=== PATIENT | female | born 1950 | race Caucasian/White ===

== ENCOUNTER 2019-09-15 17:28 | Emergency (ER) | payer MEDICARE, OTHER, SELFPAY ==
[2019-09-15 17:32] VITALS: BP 135/80; PULSE 85; RESP 24; TEMP 38.4; O2SAT 98; BMI 23.2
--- NOTE | 2019-09-15 17:56 | ED.SOB ---
HPI - SOB/Dyspnea <Petra Cervantes PA-C - Last Filed: 09/15/19 21:06> General Chief Complaint: Shortness of Breath/Dyspnea Stated Complaint: Cough/ fever Time Seen by Provider: 09/15/19 17:48 Source: patient Mode of arrival: Ambulatory Limitations: no limitations History of Present Illness HPI Narrative: This 68-year-old female comes to ED secondary to fever and worsening cough and fatigue. She states symptoms started 3 days ago or so with sinus pressure and drainage, however over the last 2 days she has had intermittent fevers up to 101.8, worsening mostly dry cough, and fatigue. She states that it feels slightly difficult to breathe, she some sense of fatigue other than significant dyspnea. She has had some sore throat and body aches. She states that she has had a little bit of diarrhea as well but this is better today. She states that she has been eating and drinking as she normally would. She has been taking Tylenol for fever. She denies any chest pain, new pain or swelling in her extremities. She does have history of asthma and is using her inhaler as needed which is helpful. She does not know of any recent exposures, no recent travel, she did have flu vaccine this season. She states that she has not had any changes in her medical history since last here aside from pelvic fracture. She has not had any new surgeries. Med/Surg History L2 burst compression fracture March 2016, nonsurgical, treated at [facility], using TLSO brace Chronic ileus Bipolar disorder Osteoporosis Ulcerative colitis, treated with complete colectomy, colostomy and later ileoanal pull-through Hypertension Hyperlipidemia Esophageal reflux Hypothyroidism Hyponatremia Asthma Related Data Home Medications Medication Instructions Recorded Confirmed LIDOCAINE/MENTHOL (LIDOPATCH) 1 ea TP QDAY #0 04/17/16 Lactobacillus acidophilus 1 tab PO BIDP PRN #0 04/17/16 albuterol sulfate [Ventolin HFA] 2 puff INH Q4HP PRN #0 04/17/16 amitriptyline 50 - 100 mg PO HSP PRN #0 04/17/16 baclofen 5 mg PO BID #0 04/17/16 bisacodyl 10 mg DE QDAYP PRN #0 04/17/16 divalproex 1,000 mg PO HS #0 04/17/16 docusate sodium 100 mg PO BIDP PRN #0 04/17/16 lamotrigine [Lamictal] 400 mg PO QDAY #0 16 levothyroxine [Synthroid] 0.075 mg PO QDAY #0 04/17/16 losartan 25 mg PO QDAY #0 04/17/16 magnesium hydroxide [Milk Of 30 ml PO Q DAY PRN PRN #0 04/17/16 Magnesia Concentrated] pantoprazole 40 mg PO QDAY #30 tab 04/17/16 polyethylene glycol 3350 [Miralax] 17 gm PO QDAY #0 gm 04/17/16 baclofen 10 mg PO HS #0 05/25/16 diazepam 5 mg PO QDAY PRN #0 05/25/16 diphenhydramine HCl [Children's 12.5 mg PO Q6 HOURS PRN #0 05/25/16 Allergy (diphenhyd)] ondansetron HCl [Zofran] 4 mg PO Q6HP PRN #0 05/25/16 tramadol 50 - 100 mg PO Q6HP PRN #0 05/25/16 Previous Rx's Medication Instructions Recorded sennosides [senna] 2 tab PO BID #60 04/19/16 acetaminophen [Tylenol Extra 1,000 mg PO Q6HP PRN 30 Days #0 tab 05/25/16 Strength] guaifenesin [Mucinex] 600 mg PO Q12HP PRN #30 tab 05/26/16 meclizine 12.5 mg PO Q6HP PRN #30 tab 05/26/16 meclizine 25 mg PO QID #20 tab 05/26/16 tramadol 1 - 2 tab PO Q6HP PRN #30 tab 05/26/16 Allergies Allergy/AdvReac Type Severity Reaction Status Date / Time butorphanol Allergy Unknown Unverified 09/27/17 12:31 Influenza Virus Vaccines Allergy Unknown ITCHING, Unverified 09/27/17 12:31 BAD REACTION meperidine Allergy Unknown Unverified 09/27/17 12:31 pneumococcal vaccine Allergy Unknown Unverified 09/27/17 12:31 quetiapine Allergy Unknown Unverified 09/27/17 12:31 neuroleptics AdvReac Unknown PT STATES Uncoded 09/27/17 12:31 HAD REALLY BAD REACTION, UNABLE TO STATE WHAT Review of Systems <Petra Cervantes PA-C - Last Filed: 09/15/19 21:06> Review of Systems ROS Unobtainable: All systems reviewed & are unremarkable except as noted in HPI and below Patient History <Petra Cervantes PA-C - Last Filed: 09/15/19 21:06> Social History Smoking Status: Never smoker Smoking Status: Never smoker Exam <Petra Cervantes PA-C - Last Filed: 09/15/19 21:06> Narrative Exam Narrative: GENERAL APPEARANCE: Patient sitting comfortably, in no distress. HEAD: No sinus TTP. EYES: PERRL, EOMI. ORAL CAVITY: Normal oropharynx. THROAT: Clear. NECK/THYROID: Neck supple, full range of motion, no cervical lymphadenopathy. LUNGS: Breath sounds are somewhat coarse throughout without clear wheezes or crackles, dry cough on exam HEART: RRR without murmur, nl S1, S2, no S3 or S4. ABDOMEN: Soft, nontender EXTREMITIES: No edema Initial Vital Signs Initial Vital Signs: Vital Signs Temperature 101.2 F H 09/15/19 17:32 Pulse Rate 85 09/15/19 17:32 Respiratory Rate 24 09/15/19 17:32 Blood Pressure 135/80 09/15/19 17:32 Pulse Oximetry 98 09/15/19 17:32 <Salazar Garcia DO - Last Filed: 09/16/19 02:42> Initial Vital Signs Initial Vital Signs: Vital Signs Temperature 101.2 F H 09/15/19 17:32 Pulse Rate 85 09/15/19 17:32 Respiratory Rate 24 09/15/19 17:32 Blood Pressure 135/80 09/15/19 17:32 Pulse Oximetry 98 09/15/19 17:32 Course <CATERINA Condon Last Filed: 09/15/19 21:06> Course Additional Information: Discussed likelihood that patient has novel alexander virus. She has normal oxygen saturation, states that she is quite fatigued, with cough and fever, not particularly short of breath at this point. She had her inhaler with her and we did do spacer training here. Discussed that she can convalesce at home, continue Tylenol for fever, continue inhaler while test results are pending. Her chest x-ray did not show any acute findings. Discussed that should she have any acutely worsening shortness of breath/activity intolerance, etc., she should return to the ED, and she is agreeable. Advised on home isolation and discussed with her as well. Orders Ordered: ED Orders 09/15/19 17:53 Influenza A & B (PCR) Stat 09/15/19 18:13 XR chest 1V Stat 09/15/19 18:30 Complete Blood Count AUTO DIFF Stat Comprehensive Metabolic Panel Stat Procalcitonin Stat Discontinued Medications Acetaminophen (Tylenol) 650 mg PO NOW ONE Stop: 09/15/19 18:48 Last Admin: 09/15/19 19:30 Dose: 650 mg Documented by: EMIR Vital Signs Vital signs: Vital Signs - 8 hr 09/15/19 20:13 Temperature 101.5 F H Pulse Rate 88 Respiratory Rate 24 Blood Pressure 112/67 Pulse Oximetry 95 <Salazar Garcia DO - Last Filed: 09/16/19 02:42> Orders Ordered: ED Orders 09/15/19 17:53 Influenza A & B (PCR) Stat 09/15/19 18:13 XR chest 1V Stat 09/15/19 18:30 Complete Blood Count AUTO DIFF Stat Comprehensive Metabolic Panel Stat Procalcitonin Stat Discontinued Medications Acetaminophen (Tylenol) 650 mg PO NOW ONE Stop: 09/15/19 18:48 Last Admin: 09/15/19 19:30 Dose: 650 mg Documented by: EMIR Vital Signs Vital signs: Vital Signs - 8 hr 09/15/19 20:13 Temperature 101.5 F H Pulse Rate 88 Respiratory Rate 24 Blood Pressure 112/67 Pulse Oximetry 95 MDM - SOB/Dyspnea <Petra Cervantes PA-C - Last Filed: 09/15/19 21:06> Lab Data Result diagrams: 09/15/19 18:30 09/15/19 18:30 Labs: Lab Results 09/15/19 09/15/19 09/15/19 Range/Units 17:53 18:30 18:30 WBC 3.6 L (4.5-11.0) X10^3/uL RBC 3.68 L (4.0-5.2) X10^6/uL Hgb 12.4 (12.0-16.0) g/dL Hct 36.1 (36-46) % MCV 98.0 (80-100) fL MCH 33.6 (26-34) PG MCHC 34.3 (30-36) % RDW 14.0 (11.6-14.8) % Plt Count 107 L (150-400) X10^3/uL Neut % (Auto) 74.6 (50-75) % Lymph % (Auto) 17.5 L (25-40) % Parke % (Auto) 7.4 (3-14) % Eos % (Auto) 0.0 L (2-4) % Baso % (Auto) 0.5 (0-2) % Neut # (Auto) 2700 (2387-7993) /uL Lymph # (Auto) 600 L (7167-8102) /uL Parke # (Auto) 300 (0-900) /uL Eos # (Auto) 0 (0-450) /uL Baso # (Auto) 0 (0-100) /uL Sodium (137-145) mmol/L Potassium (3.4-5.1) mmol/L Chloride (98-107) mmol/L Carbon Dioxide (22-32) mmol/L BUN (7-17) mg/dL Creatinine (0.52-1.04) mg/dL Estimated GFR (>60) mL/min BUN/Creatinine Ratio (6-22) Glucose (80-110) mg/dL Calcium (8.4-10.2) mg/dL Total Bilirubin (0.2-1.3) mg/dL AST (14-36) IU/L ALT (<35) IU/L Alkaline Phosphatase (38-126) U/L Total Protein (6.3-8.2) g/dL Albumin (3.5-5.0) g/dL Globulin (1.7-4.1) g/dL Albumin/Globulin Ratio (1.0-2.8) Procalcitonin 0.06 (<0.5) ng/mL Influenza A (RT-PCR) Flu a negative (NEGATIVE) Influenza B (RT-PCR) Flu b negative (NEGATIVE) 09/15/19 Range/Units 18:30 WBC (4.5-11.0) X10^3/uL RBC (4.0-5.2) X10^6/uL Hgb (12.0-16.0) g/dL Hct (36-46) % MCV (80-100) fL MCH (26-34) PG MCHC (30-36) % RDW (11.6-14.8) % Plt Count (150-400) X10^3/uL Neut % (Auto) (50-75) % Lymph % (Auto) (25-40) % Parke % (Auto) (3-14) % Eos % (Auto) (2-4) % Baso % (Auto) (0-2) % Neut # (Auto) (2233-6556) /uL Lymph # (Auto) (4951-2683) /uL Parke # (Auto) (0-900) /uL Eos # (Auto) (0-450) /uL Baso # (Auto) (0-100) /uL Sodium 135 L (137-145) mmol/L Potassium 4.5 (3.4-5.1) mmol/L Chloride 105 (98-107) mmol/L Carbon Dioxide 22 (22-32) mmol/L BUN 24 H (7-17) mg/dL Creatinine 0.93 (0.52-1.04) mg/dL Estimated GFR > 60.0 (>60) mL/min BUN/Creatinine Ratio 25.8 H (6-22) Glucose 100 (80-110) mg/dL Calcium 9.3 (8.4-10.2) mg/dL Total Bilirubin 0.3 (0.2-1.3) mg/dL AST 28 (14-36) IU/L ALT 14 (<35) IU/L Alkaline Phosphatase 45 (38-126) U/L Total Protein 6.8 (6.3-8.2) g/dL Albumin 3.8 (3.5-5.0) g/dL Globulin 3.0 (1.7-4.1) g/dL Albumin/Globulin Ratio 1.3 (1.0-2.8) Procalcitonin (<0.5) ng/mL Influenza A (RT-PCR) (NEGATIVE) Influenza B (RT-PCR) (NEGATIVE) <Salazar Garcia DO - Last Filed: 09/16/19 02:42> Lab Data Labs: Lab Results 09/15/19 09/15/19 09/15/19 Range/Units 17:53 18:30 18:30 WBC 3.6 L (4.5-11.0) X10^3/uL RBC 3.68 L (4.0-5.2) X10^6/uL Hgb 12.4 (12.0-16.0) g/dL Hct 36.1 (36-46) % MCV 98.0 (80-100) fL MCH 33.6 (26-34) PG MCHC 34.3 (30-36) % RDW 14.0 (11.6-14.8) % Plt Count 107 L (150-400) X10^3/uL Neut % (Auto) 74.6 (50-75) % Lymph % (Auto) 17.5 L (25-40) % Parke % (Auto) 7.4 (3-14) % Eos % (Auto) 0.0 L (2-4) % Baso % (Auto) 0.5 (0-2) % Neut # (Auto) 2700 (4282-0804) /uL Lymph # (Auto) 600 L (7579-7929) /uL Parke # (Auto) 300 (0-900) /uL Eos # (Auto) 0 (0-450) /uL Baso # (Auto) 0 (0-100) /uL Sodium (137-145) mmol/L Potassium (3.4-5.1) mmol/L Chloride (98-107) mmol/L Carbon Dioxide (22-32) mmol/L BUN (7-17) mg/dL Creatinine (0.52-1.04) mg/dL Estimated GFR (>60) mL/min BUN/Creatinine Ratio (6-22) Glucose (80-110) mg/dL Calcium (8.4-10.2) mg/dL Total Bilirubin (0.2-1.3) mg/dL AST (14-36) IU/L ALT (<35) IU/L Alkaline Phosphatase (38-126) U/L Total Protein (6.3-8.2) g/dL Albumin (3.5-5.0) g/dL Globulin (1.7-4.1) g/dL Albumin/Globulin Ratio (1.0-2.8) Procalcitonin 0.06 (<0.5) ng/mL Influenza A (RT-PCR) Flu a negative (NEGATIVE) Influenza B (RT-PCR) Flu b negative (NEGATIVE) 03/29/20 Range/Units 18:30 WBC (4.5-11.0) X10^3/uL RBC (4.0-5.2) X10^6/uL Hgb (12.0-16.0) g/dL Hct (36-46) % MCV (80-100) fL MCH (26-34) PG MCHC (30-36) % RDW (11.6-14.8) % Plt Count (150-400) X10^3/uL Neut % (Auto) (50-75) % Lymph % (Auto) (25-40) % Parke % (Auto) (3-14) % Eos % (Auto) (2-4) % Baso % (Auto) (0-2) % Neut # (Auto) (3920-8938) /uL Lymph # (Auto) (2155-2438) /uL Parke # (Auto) (0-900) /uL Eos # (Auto) (0-450) /uL Baso # (Auto) (0-100) /uL Sodium 135 L (137-145) mmol/L Potassium 4.5 (3.4-5.1) mmol/L Chloride 105 (98-107) mmol/L Carbon Dioxide 22 (22-32) mmol/L BUN 24 H (7-17) mg/dL Creatinine 0.93 (0.52-1.04) mg/dL Estimated GFR > 60.0 (>60) mL/min BUN/Creatinine Ratio 25.8 H (6-22) Glucose 100 (80-110) mg/dL Calcium 9.3 (8.4-10.2) mg/dL Total Bilirubin 0.3 (0.2-1.3) mg/dL AST 28 (14-36) IU/L ALT 14 (<35) IU/L Alkaline Phosphatase 45 (38-126) U/L Total Protein 6.8 (6.3-8.2) g/dL Albumin 3.8 (3.5-5.0) g/dL Globulin 3.0 (1.7-4.1) g/dL Albumin/Globulin Ratio 1.3 (1.0-2.8) Procalcitonin (<0.5) ng/mL Influenza A (RT-PCR) (NEGATIVE) Influenza B (RT-PCR) (NEGATIVE) Discharge Plan Departure Patient Disposition: Home Clinical Impression: 2019 novel coronavirus disease (COVID-19) Asthma with exacerbation Qualifiers: Asthma severity: unspecified severity Asthma persistence: intermittent Qualified Code(s): J45.21 - Mild intermittent asthma with (acute) exacerbation Discharge Date/Time: 09/15/19 20:14 Instructions: Atypical Pneumonia Activity Restrictions/Additional Instructions: Although we do not have a confirmed test, based on your symptoms and history, I suspect that you have coronavirus, which is also likely exacerbating your asthma. Your chest x-ray looks clear today, and since you are not having significant breathing difficulty at this point, it is okay for you to be at home, however if you are feeling worse or more short of breath at any point and your inhaler isn't working, you should return to the emergency room. Below are instructions for care at home: What to do: * per recommendations from the CDC and the [facility] Department of Health * stay home except to get medical care. Restrict activities outside your home, except for getting medical care. Do not go to work, school, or public areas. Avoid using public transportation, ride sharing, or taxis. * separate yourself from other people in your home. * call ahead before visiting your doctor * Wear a face mask * Cover your coughs and sneezes * Clean your hands often * Avoid sharing household items * Clean all high-touch services every day * Monitor your symptoms and seek prompt medical attention if your illness is worsening, particularly with difficulty in breathing. Discussed continuing home isolation * for individuals with symptoms who are confirmed or suspected cases of COVID-19 and are directed to care for themselves at home, discontinue home isolation under the following conditions: 1. At least 72 hours have passed since recovery, defined as resolution of fever without the use of fever reducing medications, and improvement in respiratory symptoms (cough, shortness of breath) AND, 2. At least 7 days have passed since symptoms 1st appeared Continue Tylenol as needed for fever and aches. Individuals with laboratory confirmed COVID-19 who have not had any symptoms may discontinue home isolation when at least 7 days have passed since the date of their 1st COVID-19 diagnostic test and have had no subsequent illness Please be sure to wear a face mask when others come into the room, i.e. if your comes into the room. If possible, try to use a separate bathroom, and keep . Keep contact brief. Your /caregiver should avoid as much contact as possible, wash hands frequently for 20 seconds and use antibacterial gel, and sanitize any shared surfaces frequently and after the patient touches them. Those who have been in close or prolonged contact with you should stay at home for the next 2 weeks (or until we know that your test is negative) and wear a mask when out and about. We noted coincidentally that your white cells and platelets were on the low side today. Your red blood cell count is normally a little bit low and that was actually higher today than when you were here previously, and you did not have anemia like you have previously. Please be sure to follow-up on this with Dr. Davison as she likely has more recent lab work on you for comparison and can determine whether any lab work needs to be repeated when you are feeling better Prescriptions: No Action pantoprazole 40 MG tablet,delayed release (DR/EC) 40 mg PO QDAY Qty: 30 RF: 0 losartan 25 MG tablet 25 mg PO QDAY Qty: 0 RF: 0 levothyroxine [Synthroid] 75 MCG tablet 0.075 mg PO QDAY Qty: 0 RF: 0 baclofen 10 MG tablet 5 mg PO BID Qty: 0 RF: 0 docusate sodium 100 MG capsule 100 mg PO BIDP PRNQty: 0 RF: 0 polyethylene glycol 3350 [Miralax] 119 GM powder 17 gm PO QDAY Qty: 0 RF: 0 LIDOCAINE/MENTHOL (LIDOPATCH) 1 ea TP QDAY Qty: 0 RF: 0 Lactobacillus acidophilus 1 EACH capsule 1 tab PO BIDP PRNQty: 0 RF: 0 bisacodyl 10 MG suppository 10 mg DE QDAYP PRNQty: 0 RF: 0 albuterol sulfate [Ventolin HFA] 90 MCG/PUFF HFA aerosol inhaler 2 puff INH Q4HP PRNQty: 0 RF: 0 magnesium hydroxide [Milk Of Magnesia Concentrated] 2,400 MG/10 ML suspension 30 ml PO Q DAY PRN PRNQty: 0 RF: 0 amitriptyline 50 MG tablet 50 - 100 mg PO HSP PRNQty: 0 RF: 0 lamotrigine [Lamictal] 200 MG tablet 400 mg PO QDAY Qty: 0 RF: 0 divalproex 500 MG tablet extended release 24 hr 1,000 mg PO HS Qty: 0 RF: 0 sennosides [senna] 8.6 MG tablet 2 tab PO BID Qty: 60 RF: 0 tramadol 50 MG tablet 50 - 100 mg PO Q6HP PRNQty: 0 RF: 0 acetaminophen [Tylenol Extra Strength] 500 MG tablet 1,000 mg PO Q6HP PRN30 Days Qty: 0 RF: 0 diazepam 5 MG tablet 5 mg PO QDAY PRNQty: 0 RF: 0 ondansetron HCl [Zofran] 8 MG tablet 4 mg PO Q6HP PRNQty: 0 RF: 0 diphenhydramine HCl [Children's Allergy (diphenhyd)] 12.5 MG tablet,disintegrating 12.5 mg PO Q6 HOURS PRNQty: 0 RF: 0 baclofen 10 MG tablet 10 mg PO HS Qty: 0 RF: 0 meclizine 25 MG tablet 25 mg PO QID Qty: 20 RF: 0 meclizine 12.5 MG tablet 12.5 mg PO Q6HP PRNQty: 30 RF: 0 tramadol 50 MG tablet 1 - 2 tab PO Q6HP PRNQty: 30 RF: 0 guaifenesin [Mucinex] 600 MG tablet extended release 12hr 600 mg PO Q12HP PRNQty: 30 RF: 0 Referrals: Judy Davison MD [Non-Staff] - <Salazar Garcia DO - Last Filed: 09/16/19 02:42> Cosign ED Attending Cosignature Attestation: I was immediately available in the department for consultation. This documentation has been reviewed and I agree with assessment and plan. Supervised by Salazar Garcia DO
--- NOTE | 2019-09-15 18:13 | DI.RAD.S_ITS ---
PROCEDURE: XR CHEST 1V INDICATIONS: cough, dyspnea, fever TECHNIQUE: One view of the chest was acquired. COMPARISON: [facility], , CHEST 1 VIEW, 05/25/2016, 16:23. FINDINGS: Surgical changes and devices: Clips project in the right base of neck.. Lungs and pleura: Lungs are clear. No pleural effusions or pneumothorax. Mediastinum: Mediastinal contours appear normal. Heart size is normal. Bones and chest wall: Chronic right rib fractures. Chronic right clavicle fracture. IMPRESSION: No acute disease Dictated by: Johnson Prather M.D. on 09/15/2019 at 18:56 Approved by: Johnson Prather M.D. on 09/15/2019 at 18:57
[2019-09-15 18:37] LABS: Influenza A - CEPHEID Flu A NEGATIVE (NEGATIVE); Influenza B - CEPHEID Flu B NEGATIVE (NEGATIVE)
[2019-09-15 18:41] LABS: Add Manual Diff / Slide Review NO; Basophils Absolute Auto 0 /uL (0-100); Basophils Percent Auto 0.5 % (0-2); Eosinophils Absolute Auto 0 /uL (0-450); Hematocrit 36.1 % (36-46); Hemoglobin 12.4 g/dL (12.0-16.0); Lymphocytes Absolute Auto 600 /uL (1100-4500); Lymphocytes Percent Auto 17.5 % (25-40); Mean Corpuscular HGB Conc 34.3 % (30-36); Mean Corpuscular Hemoglobin 33.6 PG (26-34); Monocytes Absolute Auto 300 /uL (0-900); Monocytes Percent Auto 7.4 % (3-14); Neutrophils Absolute Auto 2700 /uL (1500-7000); Neutrophils Percent Auto 74.6 % (50-75); Platelet Count 107 X10^3/uL (150-400); Red Blood Cell Count 3.68 X10^6/uL (4.0-5.2); White Blood Cell Count 3.6 X10^3/uL (4.5-11.0)
[2019-09-15 18:52] LABS: Alanine Aminotransferase 14 IU/L (<35); Albumin 3.8 g/dL (3.5-5.0); Albumin Globulin Ratio 1.3 (1.0-2.8); Alkaline Phosphatase 45 U/L (38-126); Aspartate Aminotransferase 28 IU/L (14-36); BUN Creatinine Ratio 25.8 (6-22); Bilirubin Total 0.3 mg/dL (0.2-1.3); Blood Urea Nitrogen 24 mg/dL (7-17); Calcium 9.3 mg/dL (8.4-10.2); Carbon Dioxide 22 mmol/L (22-32); Chloride 105 mmol/L (98-107); Estimated Glomerular Filt Rate > 60.0 mL/min (>60); Glucose 100 mg/dL (80-110); HEMOLYSIS < 15 (0-50); Potassium 4.5 mmol/L (3.4-5.1); Sodium 135 mmol/L (137-145); Total Protein 6.8 g/dL (6.3-8.2)
[2019-09-15] MEDS: ACETAMINOPHEN 325 MG TABLET 650 MG PO (19:30)
[2019-09-15 19:44] LABS: Procalcitonin 0.06 ng/mL (<0.5)
[2019-09-15 20:13] VITALS: BP 112/67; PULSE 88; RESP 24; TEMP 38.6; O2SAT 95
[2019-09-18 08:17] LABS: COVID19 Sendout Detected (Not Detected)
== END 2019-09-15 20:14 | disposition home or self-care (01) ==
PROVIDERS: Emergency Provider Internal Medicine; Family Provider Internal Medicine; PCP Internal Medicine
DX: R05 Cough (principal); R50.9 Fever, unspecified; R06.02 Shortness of breath; J45.21 Mild intermittent asthma with (acute) exacerbation
CPT/HCPCS: 36415; 71045; 80053; 84145; 85025; 87502; 87635; 99283

== ENCOUNTER 2021-05-28 00:01 | Inpatient (IN) | payer MEDICARE, OTHER, SELFPAY ==
[2021-05-28] VITALS (9 sets, daily range): BP systolic 121–151; BP diastolic 58–80; PULSE 76–91; RESP 18–20; TEMP 37.1–37.5; O2SAT 96–100; BMI 24.1
--- NOTE | 2021-05-28 00:08 | ED.GENADULT ---
HPI - General Adult General Chief complaint: Abdominal Pain Stated complaint: Abd cramping Time Seen by Provider: 05/28/21 00:04 Source: patient Mode of arrival: EMS Limitations: no limitations History of Present Illness HPI narrative: Patient is a 70-year-old female who arrives for evaluation of a couple hours of abdominal cramping/pain. She is having nausea but no vomiting. She is still passing flatus. Had a very small bowel movement earlier today. She has had extensive abdominal history to include a bowel resection secondary to ulcerative colitis. She does have a Ellie fundoplication as well. Less than 1 month ago she had a exploratory laparotomy done at an outside facility for concern of perforated bowel with lysis of adhesions. She was discharged from the hospital earlier this week to rehab facility. She states she is having some abdominal bloating. Related Data Home Medications Medication Instructions Recorded Confirmed LIDOCAINE/MENTHOL (LIDOPATCH) 1 ea TP QDAY #0 04/17/16 Lactobacillus acidophilus 1 tab PO BIDP PRN #0 04/17/16 albuterol sulfate 90 mcg/actuation 2 puff INH Q4HP PRN #0 04/17/16 aerosol inhaler (Ventolin HFA) amitriptyline 50 mg tablet 50 - 100 mg PO HSP PRN #0 04/17/16 baclofen 10 mg tablet 5 mg PO BID #0 04/17/16 bisacodyl 10 mg rectal suppository 10 mg MA QDAYP PRN #0 04/17/16 divalproex 500 mg tablet,extended 1,000 mg PO HS #0 04/17/16 release 24 hr docusate sodium 100 mg capsule 100 mg PO BIDP PRN #0 04/17/16 lamotrigine 200 mg tablet 400 mg PO QDAY #0 16 (Lamictal) levothyroxine 75 mcg tablet 0.075 mg PO QDAY #0 04/17/16 (Synthroid) losartan 25 mg tablet 25 mg PO QDAY #0 16 magnesium hydroxide 2,400 mg/10 mL 30 ml PO Q DAY PRN PRN #0 16 oral suspension (Milk Of Magnesia Concentrated) pantoprazole 40 mg tablet,delayed 40 mg PO QDAY #30 tab 04/17/16 release polyethylene glycol 3350 17 17 gm PO QDAY #0 gm 04/17/16 gram/dose oral powder (Miralax) baclofen 10 mg tablet 10 mg PO HS #0 05/25/16 diazepam 5 mg tablet 5 mg PO QDAY PRN #0 05/25/16 diphenhydramine HCl 12.5 mg 12.5 mg PO Q6 HOURS PRN #0 05/25/16 disintegrating tablet (Children's Allergy (diphenhydramine)) ondansetron HCl 8 mg tablet 4 mg PO Q6HP PRN #0 05/25/16 (Zofran) tramadol 50 mg tablet 50 - 100 mg PO Q6HP PRN #0 05/25/16 Previous Rx's Medication Instructions Recorded sennosides 8.6 mg tablet (senna) 2 tab PO BID #60 04/19/16 acetaminophen 500 mg tablet 1,000 mg PO Q6HP PRN 30 Days #0 tab 05/25/16 (Tylenol Extra Strength) guaifenesin 600 mg tablet, 600 mg PO Q12HP PRN #30 tab 05/26/16 extended release 12 hr (Mucinex) meclizine 12.5 mg tablet 12.5 mg PO Q6HP PRN #30 tab 05/26/16 meclizine 25 mg tablet 25 mg PO QID #20 tab 05/26/16 tramadol 50 mg tablet 1 - 2 tab PO Q6HP PRN #30 tab 05/26/16 Allergies Allergy/AdvReac Type Severity Reaction Status Date / Time butorphanol Allergy Unknown Unverified 09/27/17 12:31 Influenza Virus Vaccines Allergy Unknown ITCHING, Unverified 09/27/17 12:31 BAD REACTION meperidine Allergy Unknown Unverified 09/27/17 12:31 pneumococcal vaccine Allergy Unknown Unverified 09/27/17 12:31 quetiapine Allergy Unknown Unverified 09/27/17 12:31 shellfish derived Allergy Unknown Verified 05/28/21 00:23 neuroleptics AdvReac Unknown PT STATES Uncoded 09/27/17 12:31 HAD REALLY BAD REACTION, UNABLE TO STATE WHAT Review of Systems Constitutional Constitutional: Denies fever(s) Cardiovascular Cardiovascular: Reports system reviewed and no additional complaints, except as documented Respiratory Respiratory: Reports system reviewed and no additional complaints, except as documented Gastrointestinal Gastrointestinal: Reports as per HPI and Reports system reviewed and no additional complaints, except as documented Genitourinary Genitourinary: Reports system reviewed and no additional complaints, except as documented Musculoskeletal Musculoskeletal: Reports system reviewed and no additional complaints, except as documented Integumentary/Breasts Skin/Breast: Reports system reviewed and no additional complaints, except as documented Neurologic Neurologic: Reports system reviewed and no additional complaints, except as documented Hematologic/Lymphatic On Anticoagulants: No Patient History Medical History Generalized weakness Small bowel obstruction Social History Smoking Status: Never smoker Smoking Status: Never smoker Exam Initial Vital Signs Initial Vital Signs: Vital Signs Temperature 99.5 F 05/28/21 00:11 Pulse Rate 78 05/28/21 00:11 Respiratory Rate 20 05/28/21 00:11 Blood Pressure 121/58 L 05/28/21 00:11 Pulse Oximetry 100 05/28/21 00:11 Const General: cooperative and comfortable HENMT Head: normal to inspection and normocephalic Eyes General: appearance normal, both eyes and all related structures Resp Effort & Inspection: normal respiratory effort Auscultation: clear to auscultation bilaterally Cardio Rate: regular rate Rhythm: regular rhythm GI Inspection: distended Palpation: soft, No guarding and tender Rectal Exam: visual inspection normal, normal sphincter tone and No hemorrhoids Skin General: no rashes or lesions noted Neuro General: patient alert, patient awake, patient oriented x3 and moves all extremities Extrem General: normal to inspection and capillary refill normal Psych Appearance: grossly normal and well kempt Course Orders Ordered: ED Orders 05/28/21 00:15 CT abdomen pelvis w con Stat 05/28/21 00:45 Complete Blood Count AUTO DIFF Stat Comprehensive Metabolic Panel Stat Lactate (Lactic Acid) Stat Lipase Stat 05/28/21 02:31 Wound Culture and Gram Stain Stat 05/28/21 06:12 US abdomen limited Stat 05/28/21 06:15 COVID19 - ADMIT (GAME TESTER swab/PCR) Stat 05/28/21 06:44 Amylase Urgent 05/28/21 06:47 Lactate Dehydrogenase Urgent Lipid Panel Urgent 05/28/21 06:49 MR abdomen wo con Urgent 05/28/21 06:50 Consult to General Surgery Routine Education, smoking cessation ONGOING 05/28/21 06:54 Magnesium Urgent 05/29/21 05:00 Basic Metabolic Panel DAILY Complete Blood Count AUTO DIFF DAILY Hepatic (Liver) Panel DAILY Prothrombin Time INR DAILY 05/30/21 05:00 Basic Metabolic Panel DAILY Complete Blood Count AUTO DIFF DAILY Hepatic (Liver) Panel DAILY 05/31/21 05:00 Basic Metabolic Panel DAILY Complete Blood Count AUTO DIFF DAILY Hepatic (Liver) Panel DAILY Hydromorphone HCl (Hydromorphone 1 Mg Inj) 1 mg IV Q6H PRN PRN Reason: Pain, Severe (7-10) Lactated Ringer's (Lactated Ringers) 1,000 mls @ 60 mls/hr IV CONT CYNDI Naloxone HCl (Naloxone 0.4 Mg/Ml Vial) 0.2 mg IV Q2MIN PRN PRN Reason: Opiate Reversal Ondansetron HCl (Ondansetron 4 Mg/2 Ml Inj) 4 mg IV Q8HR PRN PRN Reason: Nausea And Vomiting Discontinued Medications Hydromorphone HCl (Hydromorphone 1 Mg Inj) 1 mg IM NOW ONE Stop: 05/28/21 01:19 Last Admin: 05/28/21 01:28 Dose: 1 mg Documented by: LAKHWINDER Sodium Chloride (Normal Saline 0.9%) 1,000 mls @ 500 mls/hr IV BOLUS ONE Stop: 05/28/21 02:07 Last Admin: 05/28/21 06:22 Dose: 500 mls/hr Documented by: BENJIE Morphine Sulfate (Morphine 4 Mg/Ml Inj) 4 mg IV NOW ONE Stop: 05/28/21 00:18 Ondansetron HCl (Ondansetron 4 Mg/2 Ml Inj) 4 mg IV NOW ONE Stop: 05/28/21 00:18 Ondansetron HCl (Ondansetron 4 Mg Odt) 4 mg SL NOW ONE Stop: 05/28/21 01:19 Last Admin: 05/28/21 02:16 Dose: 4 mg Documented by: LAKHWINDER Vital Signs Vital signs: Vital Signs - 8 hr 05/28/21 00:11 05/28/21 02:01 05/28/21 03:13 Temperature 99.5 F Pulse Rate 78 76 76 Respiratory Rate 20 20 18 Blood Pressure 121/58 L 149/70 H 144/71 H Pulse Oximetry 100 99 98 05/28/21 05:35 Temperature Pulse Rate 80 Respiratory Rate 18 Blood Pressure 151/67 H Pulse Oximetry 98 Medical Decision Making Lab Data Result diagrams: 05/28/21 00:45 05/28/21 00:45 Labs: Lab Results 05/28/21 05/28/21 05/28/21 Range/Units 00:45 00:45 00:45 WBC 7.7 (4.5-11.0) X10^3/uL RBC 2.74 L (4.0-5.2) X10^6/uL Hgb 9.2 L (12.0-16.0) g/dL Hct 26.5 L (36-46) % MCV 96.6 (80-100) fL MCH 33.5 (26-34) PG MCHC 34.7 (30-36) % RDW 17.1 H (11.6-14.8) % Plt Count 438 H (150-400) X10^3/uL Neut % (Auto) 63.8 (50-75) % Lymph % (Auto) 22.5 L (25-40) % [place] % (Auto) 10.3 (3-14) % Eos % (Auto) 2.1 (2-4) % Baso % (Auto) 1.3 (0-2) % Neut # (Auto) 4900 (7806-6840) /uL Lymph # (Auto) 1700 (5619-7786) /uL [place] # (Auto) 800 (0-900) /uL Eos # (Auto) 200 (0-450) /uL Baso # (Auto) 100 (0-100) /uL Sodium 134 L (137-145) mmol/L Potassium 5.0 (3.4-5.1) mmol/L Chloride 97 L (98-107) mmol/L Carbon Dioxide 34 H (22-32) mmol/L BUN 13 (7-17) mg/dL Creatinine 0.93 (0.52-1.04) mg/dL Estimated GFR 60.0 (>60) mL/min BUN/Creatinine Ratio 14.0 (6-22) Glucose 98 (80-110) mg/dL Lactate 1.5 (0.7-2.1) mmol/L Calcium 8.3 L (8.4-10.2) mg/dL Total Bilirubin 0.6 (0.2-1.3) mg/dL AST 42 H (14-36) IU/L ALT 15 (<35) IU/L Alkaline Phosphatase 66 (38-126) U/L Total Protein 6.4 (6.3-8.2) g/dL Albumin 3.0 L (3.5-5.0) g/dL Globulin 3.4 (1.7-4.1) g/dL Albumin/Globulin Ratio 0.9 L (1.0-2.8) Lipase 1495 H (23-300) U/L [facility] Narrative Medical decision making narrative: CT scan shows findings consistent with peritonitis but no other signs of bowel obstruction. She does have an elevated lipase. She has been having discomfort whenever she eats or drinks anything for the past couple days. Review of her prior medical record shows a normal lipase when she was admitted to the hospital. When I discussed this with her she states she has had pancreatitis in the past. Given her presentation today I do feel that admission to the hospital is warranted for pain control and fluids. I also discussed the case with Dr. Camargo with General surgery she did review the CT scan and agree there is nothing emergently surgical. Right upper quadrant ultrasound was ordered to further evaluate gallbladder. I did discuss this with the patient. She expressed understanding and agreement. Discharge Plan Departure Patient Disposition: Admitted As Inpatient Clinical Impression: Pancreatitis
--- NOTE | 2021-05-28 00:15 | DI.CT.S_ITS ---
PROCEDURE: CT ABDOMEN PELVIS W CON INDICATIONS: history of obstructions with distension TECHNIQUE: After the administration of IV contrast, axial sections were acquired from the lung bases to the pubic symphysis. Coronal and sagittal reformats were performed. For radiation dose reduction, the following was used: automated exposure control, adjustment of mA and/or kV according to patient size. COMPARISON: [facility], US, US ABDOMEN LIMITED, 05/28/2021, 6:34. [facility], CT, ABDOMEN/PELVIS WITH CONTRAST, 04/17/2016, 3:46. FINDINGS: Image quality: Excellent. Lung bases: Mild bilateral effusions, right greater than left with small areas of superimposed consolidation. Heart: No significant findings. ABDOMEN: Liver: Liver is enlarged with steatosis. Gallbladder: The gallbladder demonstrates no visualized stones. The wall is somewhat irregular and at the upper limits of normal in size. Fluid is noted surrounding portions of the gallbladder, which appear to be part of [id number] abdominal ascites. Biliary ducts: Unremarkable. Pancreas: Unremarkable. Spleen: Unremarkable. Adrenal Glands: Unremarkable. Kidneys and Ureters: There is no obstruction. Multiple bilateral low-attenuation foci are present bilaterally. The largest is present on the left measuring 3.0 cm, Hounsfield units measure 10. Multiple foci are too small to definitively characterize. Stomach and Bowel: Stomach, small bowel loops, and colon are unremarkable. No obstruction. There is a very minimal appearance of enhancement within the right hemipelvis. Peritoneum: No abnormal intraperitoneal fluid. No free air. Ventral Wall: No hernia. Abdominal Nodes: No retroperitoneal or mesenteric adenopathy by size criteria. Vessels: Aorta and inferior vena cava are normal in size. PELVIS: Pelvic Organs: Unremarkable. Bladder: Unremarkable. Pelvic Nodes: No enlarged lymph nodes. Miscellaneous: No inguinal hernias are seen. Bones: Leftward scoliotic curvature is present. IMPRESSION: 1. [id number] ascites. Questionable minimal peritoneal enhancement within the right hemipelvis. While this could be artifactual, recommend correlation to peritoneal signs. 2. Mild irregular thickening of the gallbladder wall overall nonspecific. Fluid surrounding the gallbladder is felt to be secondary to ascites rather than pericholecystic fluid related to primary gallbladder pathology. However, ultrasound may be obtained for further evaluation and correlation of patient's symptoms. The above findings are concordant with preliminary report. Dictated by: Tahmina Alvarez M.D. on 05/28/2021 at 7:46 Approved by: Tahmina Alvarez M.D. on 05/28/2021 at 7:52
[2021-05-28 00:58] LABS: Add Manual Diff / Slide Review NO; Basophils Absolute Auto 100 /uL (0-100); Basophils Percent Auto 1.3 % (0-2); Eosinophils Absolute Auto 200 /uL (0-450); Eosinophils Percent Auto 2.1 % (2-4); Hematocrit 26.5 % (36-46); Hemoglobin 9.2 g/dL (12.0-16.0); Lymphocytes Absolute Auto 1700 /uL (1100-4500); Lymphocytes Percent Auto 22.5 % (25-40); Mean Corpuscular HGB Conc 34.7 % (30-36); Mean Corpuscular Hemoglobin 33.5 PG (26-34); Mean Corpuscular Volume 96.6 fL (80-100); Monocytes Absolute Auto 800 /uL (0-900); Monocytes Percent Auto 10.3 % (3-14); Neutrophils Absolute Auto 4900 /uL (1500-7000); Neutrophils Percent Auto 63.8 % (50-75); Platelet Count 438 X10^3/uL (150-400); Red Blood Cell Count 2.74 X10^6/uL (4.0-5.2); Red Cell Distribution Width 17.1 % (11.6-14.8); White Blood Cell Count 7.7 X10^3/uL (4.5-11.0)
[2021-05-28 01:04] LABS: Lactate (Lactic Acid) 1.5 mmol/L (0.7-2.1)
[2021-05-28 01:05] LABS: Alanine Aminotransferase 15 IU/L (<35); Albumin Globulin Ratio 0.9 (1.0-2.8); Alkaline Phosphatase 66 U/L (38-126); Aspartate Aminotransferase 42 IU/L (14-36); Bilirubin Total 0.6 mg/dL (0.2-1.3); Blood Urea Nitrogen 13 mg/dL (7-17); Calcium 8.3 mg/dL (8.4-10.2); Carbon Dioxide 34 mmol/L (22-32); Chloride 97 mmol/L (98-107); Globulin 3.4 g/dL (1.7-4.1); Glucose 98 mg/dL (80-110); HEMOLYSIS 145 (0-50); Lipase 1495 U/L (23-300); Sodium 134 mmol/L (137-145); Total Protein 6.4 g/dL (6.3-8.2)
[2021-05-28] MEDS: HYDROMORPHONE 1 MG INJ IM (01:28)
--- NOTE | 2021-05-28 01:42 | PC.NURSE ---
I and Dee CORTES were unable to access iv site after 2 attempts each,DR Patterson notified.
[2021-05-28] MEDS: ONDANSETRON 4 MG ODT SL (02:16)
--- NOTE | 2021-05-28 04:32 | PC.NURSE ---
Mid line RN here for IV access.
--- NOTE | 2021-05-28 06:12 | DI.US.S_ITS ---
PROCEDURE: US ABDOMEN LIMITED INDICATIONS: PANCREATITIS TECHNIQUE: Real-time focused scanning was performed of the abdomen, with image documentation. COMPARISON: None. FINDINGS: Liver is normal in size and homogeneous in echotexture. Sludge noted in the gallbladder. Gallbladder wall is thickened to 3.7 millimeters. Trace pericholecystic fluid is noted. No sonographic Moraes sign reported. Biliary tree is nondilated. Common bile duct measures 5.6 millimeters. Pancreas is obscured by bowel gas and cannot be evaluated. IMPRESSION: Gallbladder wall thickening with pericholecystic fluid concerning for acute cholecystitis. Dictated by: Viv Quiles MD, PhD on 05/28/2021 at 7:54 Approved by: Viv Quiles MD, PhD on 05/28/2021 at 7:55
[2021-05-28] MEDS: SODIUM CHLORIDE 0.9% 1,000 ML 500 ML IV (06:22)
[2021-05-28 07:09] LABS: Amylase 155 U/L (30-110)
[2021-05-28 07:10] LABS: Cholesterol 153 mg/dL (140-199); HDL Cholesterol 44 mg/dL (40-60); LDL Cholesterol Calculated 82 mg/dL (<100); Lactate Dehydrogenase 989 U/L (313-618); Magnesium 2.2 mg/dL (1.6-2.3); Triglycerides 136 mg/dL (35-150)
[2021-05-28 07:14] LABS: COVID19 - ADMIT (NP swab/PCR) Negative (Negative)
--- NOTE | 2021-05-28 08:12 | PC.NURSE ---
Day shift: Pt on unit from ED at approx 0800. SHe is A&Ox4. VS WNL. RA 97%. Reports ABD pain 01/26. Oriented to room and call light. AGrees to not get OOB w/o help from staff. Has ABD scars and midline incision w/ steri strips (dried blood present) w/ no s/s of infection.
[2021-05-28] MEDS: LACTATED RINGERS 1,000 ML 60 ML IV (08:29)
[2021-05-28] MEDS: HYDROMORPHONE 1 MG INJ IV (08:34)
[2021-05-28] MEDS: SODIUM CHLORIDE 0.9% 1,000 ML 200 ML IV ×3 (10:29→21:46)
[2021-05-28] MEDS: HYDROMORPHONE 0.5 MG INJ IV ×2 (12:01→20:27)
--- NOTE | 2021-05-28 12:12 | DI.MRI.S_ITS ---
PROCEDURE: MR ABDOMEN WO CON INDICATIONS: pancreatitis, eval biliary and pancreatic ducts TECHNIQUE: Coronal HASTE through the abdomen, axial 2-D FLASH in- and [id number], and breath-hold T2 FSE with fat saturation through the biliary system and pancreas. Oblique coronal and axial thin-slice HASTE, radial thick-slab HASTE centered on the extrahepatic bile ducts. Intravenous secretin: Not requested. COMPARISON: [facility], US, US ABDOMEN LIMITED, 05/28/2021, 6:34. [facility], CT, CT ABDOMEN PELVIS W CON, 05/28/2021, 4:59. FINDINGS: Image quality: Suboptimal due to continual patient motion. Pancreas and biliary system: The pancreas is normal size and morphology without significant ductal dilatation. No significant glandular edema. Common bile duct and intrahepatic biliary tree is normal caliber. The gallbladder is distended with an edematous, thickened wall and there is pericholecystic fluid. No visible stone given limitations of this exam. Other solid organs: Liver is normal in size. No significant steatosis. Spleen is normal in size. No adrenal nodules. Both kidneys contain several cm size cysts. There is a dominant unilocular cyst in the right kidney midpole measuring 3.6 cm. Nodes and vessels: No retroperitoneal or mesenteric adenopathy by size criteria. Aorta and inferior vena cava are normal in size. Bowel and peritoneum: There is a small amount of perihepatic and perisplenic ascites as well as interloop fluid and subcutaneous body wall edema. Lung bases: Small bilateral pleural effusions. The heart size is normal. Bones and soft tissues: There is circumferential body wall edema, particularly in the right flank suggesting anasarca or 3rd spacing. There are findings of an L2 compression fracture and in L1 vertebral body hemangioma, chronic. IMPRESSION: 1. Findings suspicious for acute acalculous cholecystitis although low protein state and intra-abdominal fluid from another etiology may also causes gallbladder appearance. 2. Normal pancreatic morphology without MR findings of acute pancreatitis. 3. Normal biliary and pancreatic ducts. 4. Bilateral pleural effusions. 5. Suboptimal study secondary to significant patient motion. Dictated by: Stephy Metzger M.D. on 05/28/2021 at 16:20 Approved by: Stephy Metzger M.D. on 05/28/2021 at 16:30
--- NOTE | 2021-05-28 12:33 | P.CONS_ITS ---
History of Present Illness Consult details Date Patient Seen: 05/28/21 Time Patient Seen: 12:36 Chief complaint: Abd cramping Reason for consult: abdominal pain Requesting provider: Loc Patterson Narrative: S/p negative Xlap with BECKY at [facility] a month ago for free air (no source found). Extensive history of abdominal surgeries and h/o inflammatory bowel disease. Had subtotal colectomy in the past with ileoanal pouch. Was release last week to a rehab facility and had sudden on set of abdominal pain and nause a. Passing gas and ribbon like stool. Pain with solid food. Found to had lipase >[address] scan that could be post op changes. There is free fluid and a dilated gallbladder. Pancreas shows no sign of inflammation. US and CT are negative for gall stone in gallbladder. And there is question of acalculus cholecystitis with relatively normal LFT's. Meds Home Medications and Allergies Home Medications Medication Instructions Recorded Confirmed Type albuterol sulfate 90 mcg/actuation 2 puff INH Q4HP PRN #0 04/17/16 05/28/21 History aerosol inhaler (Ventolin HFA) divalproex 500 mg tablet,extended 1,000 mg PO HS #0 04/17/16 05/28/21 History release 24 hr lamotrigine 200 mg tablet 400 mg PO QDAY #0 04/17/16 05/28/21 History (Lamictal) levothyroxine 75 mcg tablet 0.075 mg PO QDAY #0 04/17/16 05/28/21 History (Synthroid) losartan 25 mg tablet 25 mg PO QDAY #0 04/17/16 05/28/21 History polyethylene glycol 3350 17 17 gm PO QDAY #0 gm 04/17/16 05/28/21 History gram/dose oral powder (Miralax) acetaminophen 500 mg tablet 1,000 mg PO Q6HP PRN 05/28/21 05/28/21 History (Tylenol Extra Strength) Allergies Allergy/AdvReac Type Severity Reaction Status Date / Time butorphanol Allergy Unknown Unverified 09/27/17 12:31 Influenza Virus Vaccines Allergy Unknown ITCHING, Unverified 09/27/17 12:31 BAD REACTION meperidine Allergy Unknown Unverified 09/27/17 12:31 pneumococcal vaccine Allergy Unknown Unverified 09/27/17 12:31 quetiapine Allergy Unknown Unverified 09/27/17 12:31 shellfish derived Allergy Unknown Verified 05/28/21 00:23 neuroleptics AdvReac Unknown PT STATES Uncoded 09/27/17 12:31 HAD REALLY BAD REACTION, UNABLE TO STATE WHAT Review of Systems Review of Systems ROS: Yes All systems reviewed with the patient and are negative except as otherwise documented Exam Vital Signs (past 8 hours): - 05/28/21 05:35 05/28/21 08:00 05/28/21 08:53 Temperature 99.0 F Pulse Rate 80 77 Respiratory Rate 18 18 Blood Pressure 151/67 H 142/80 H Pulse Oximetry 98 100 96 05/28/21 11:57 Temperature Pulse Rate Respiratory Rate Blood Pressure Pulse Oximetry 97 Oxygen Delivery Method Room Air Oxygen Flow Rate 0 Narrative Exam Narrative: Tenderness in RUQ that is focal. O/w soft abdomen. Const General: cooperative and comfortable Orientation: alert HENMT Head: normocephalic and atraumatic Ears: hearing grossly normal bilaterally Eyes Sclera: sclerae normal Neck Neck: normal visual inspection and trachea midline Chest Chest: normal inspection of the chest Resp Effort & Inspection: normal respiratory effort and able to speak in complete s entences Cardio Rate: regular rate Rhythm: regular rhythm GI Palpation: soft Other: Healing incisions. Skin General: no rashes or lesions noted and dry skin Neuro General: patient alert and patient oriented x3 Cognition: normal cognition Extrem General: capillary refill normal and no pedal edema Psych Appearance: grossly normal Judgment: judgment good Objective Labs Result Diagrams: 05/28/21 00:45 05/28/21 00:45 Labs: Laboratory Results - last 24 hr 05/28/21 05/28/21 05/28/21 00:45 00:45 00:45 WBC 7.7 RBC 2.74 L Hgb 9.2 L Hct 26.5 L MCV 96.6 MCH 33.5 MCHC 34.7 RDW 17.1 H Plt Count 438 H Neut % (Auto) 63.8 Lymph % (Auto) 22.5 L [place] % (Auto) 10.3 Eos % (Auto) 2.1 Baso % (Auto) 1.3 Neut # (Auto) 4900 Lymph # (Auto) 1700 [place] # (Auto) 800 Eos # (Auto) 200 Baso # (Auto) 100 Sodium 134 L Potassium 5.0 Chloride 97 L Carbon Dioxide 34 H BUN 13 Creatinine 0.93 Estimated GFR 60.0 BUN/Creatinine Ratio 14.0 Glucose 98 Lactate 1.5 Calcium 8.3 L Magnesium Total Bilirubin 0.6 AST 42 H ALT 15 Alkaline Phosphatase 66 Lactate Dehydrogenase Total Protein 6.4 Albumin 3.0 L Globulin 3.4 Albumin/Globulin Ratio 0.9 L Triglycerides Cholesterol LDL Cholesterol, Calc HDL Cholesterol Amylase Lipase 1495 H SARS-CoV-2 (PCR) 05/28/21 05/28/21 05/28/21 00:45 00:45 00:45 WBC RBC Hgb Hct MCV MCH MCHC RDW Plt Count Neut % (Auto) Lymph % (Auto) [place] % (Auto) Eos % (Auto) Baso % (Auto) Neut # (Auto) Lymph # (Auto) [place] # (Auto) Eos # (Auto) Baso # (Auto) Sodium Potassium Chloride Carbon Dioxide BUN Creatinine Estimated GFR BUN/Creatinine Ratio Glucose Lactate Calcium Magnesium 2.2 Total Bilirubin AST ALT Alkaline Phosphatase Lactate Dehydrogenase 989 H Total Protein Albumin Globulin Albumin/Globulin Ratio Triglycerides 136 Cholesterol 153 LDL Cholesterol, Calc 82 HDL Cholesterol 44 Amylase 155 H Lipase SARS-CoV-2 (PCR) 05/28/21 06:15 WBC RBC Hgb Hct MCV MCH MCHC RDW Plt Count Neut % (Auto) Lymph % (Auto) [place] % (Auto) Eos % (Auto) Baso % (Auto) Neut # (Auto) Lymph # (Auto) [place] # (Auto) Eos # (Auto) Baso # (Auto) Sodium Potassium Chloride Carbon Dioxide BUN Creatinine Estimated GFR BUN/Creatinine Ratio Glucose Lactate Calcium Magnesium Total Bilirubin AST ALT Alkaline Phosphatase Lactate Dehydrogenase Total Protein Albumin Globulin Albumin/Globulin Ratio Triglycerides Cholesterol LDL Cholesterol, Calc HDL Cholesterol Amylase Lipase SARS-CoV-2 (PCR) Negative [facility] Medical History Generalized weakness Small bowel obstruction Social History household members: spouse Tobacco & Substance Use Smoking Status: Never smoker alcohol intake: former Assessment & Plan Assessment & Plan narrative: Complicated medical and surgical history with recent hospitalization at [facility] and a negative laparotomy with BECKY looking for source of free air. Acute Pancreatitis with no clear source. acalculus cholecystitis anemia of acute and chronic blood loss Protein malnutrition which may explain her free fluid in abdomen PLAN: MRCP to look further for source of pancreatitis (looking at debride in [place]) Nutrition consult for ensure and high proteint diet MVI with iron for anemia Medical management of acalculus cholecystitis and if that fails, she will need a cholecystostomy tube. Due to the recent surgery a lap sue is not recommended until 3-6 months out from that surgery. Ulcer prophylaxis COVID-19 COVID-19 status: Negative Time Spent With Patient Critical Care time: I spent a total of [] minutes of critical care time on this patient's care today; this time is exclusive of procedural time.
[2021-05-28] MEDS: PRENATAL VIT,CALC/IRON/FOLIC 1 TABLET 1 TAB PO (13:24)
--- NOTE | 2021-05-28 13:50 | PM.HP.1 ---
History of Present Illness History of Present Illness Date Patient Seen: 05/28/21 Time Patient Seen: 10:00 Chief complaint: Abd cramping Narrative: Ms. Watkins is a 70W with PMH of ulcerative colitis s/p subtotal colectomy with ileoanal pouch, Ellie fundoplication, small bowel fistula, multiple surgeries for adhesive disease, recent exlap last month for free air with no source found who presents to the hospital with abdominal pain. She states she has been in rehab since Monday. Yesterday she had sudden onset of abdominal cramping and nausea. She is passing gas, she has had a bowel movement that is thin. No blood, no vomit. No fevers/chills. She has had an episode of pancreatitis in the past and never found out what the cause was. In the ED workup was done, vitals were unremarkable. Labs notable for WBC 7.7, creatinine 0.93, lactate 1.5. Bilirubin 0.6, ast/alt 42/15. Albumin 3.0. Lipase 1495. Ct of her abdomen showed fluid, and possible minimal peritoneal enhancement in the right hemipelvis, gallbladder showed mild thickening of the wall and fluid surrounding the gallbladder. Pancreas appeared unremarkable. Abdominal ultrasound showed gallbladder wall thickening with pericholecystic fluid. She was given IV fluid and pain medications and admited for further treatment. Family history: Brother with Diabetes, [place] Patient History Medical History Generalized weakness Small bowel obstruction Family & Social History Social History: household members spouse Prior Living Arrangements House Safety & Behavioral: Feels Safe in Current Yes Environment Been Physically Hurt or No Threatened By a Person Suicidal Ideation Description None Suicide Plan Description No Plan Tobacco & Substance use: Smoking Status Never smoker alcohol intake former Substance Use Type does not use Meds Home Medications and Allergies Home Medications Medication Instructions Recorded Confirmed Type albuterol sulfate 90 mcg/actuation 2 puff INH Q4HP PRN #0 04/17/16 05/28/21 History aerosol inhaler (Ventolin HFA) divalproex 500 mg tablet,extended 1,000 mg PO HS #0 04/17/16 05/28/21 History release 24 hr lamotrigine 200 mg tablet 400 mg PO QDAY #0 04/17/16 05/28/21 History (Lamictal) levothyroxine 75 mcg tablet 0.075 mg PO QDAY #0 04/17/16 05/28/21 History (Synthroid) losartan 25 mg tablet 25 mg PO QDAY #0 04/17/16 05/28/21 History polyethylene glycol 3350 17 17 gm PO QDAY #0 gm 04/17/16 05/28/21 History gram/dose oral powder (Miralax) acetaminophen 500 mg tablet 1,000 mg PO Q6HP PRN 05/28/21 05/28/21 History (Tylenol Extra Strength) Allergies Allergy/AdvReac Type Severity Reaction Status Date / Time butorphanol Allergy Unknown Unverified 09/27/17 12:31 Influenza Virus Vaccines Allergy Unknown ITCHING, Unverified 09/27/17 12:31 BAD REACTION meperidine Allergy Unknown Unverified 09/27/17 12:31 pneumococcal vaccine Allergy Unknown Unverified 09/27/17 12:31 quetiapine Allergy Unknown Unverified 09/27/17 12:31 shellfish derived Allergy Unknown Verified 05/28/21 00:23 neuroleptics AdvReac Unknown PT STATES Uncoded 09/27/17 12:31 HAD REALLY BAD REACTION, UNABLE TO STATE WHAT Review of Systems Review of Systems Narrative: 14 systems reviewed and negative aside from what is noted in HPI Exam Vital Signs (past 8 hours): - 05/28/21 08:00 05/28/21 08:53 05/28/21 11:57 Temperature 99.0 F Pulse Rate 77 Respiratory Rate 18 Blood Pressure 142/80 H Pulse Oximetry 100 96 97 Oxygen Delivery Method Room Air Oxygen Flow Rate 0 Narrative Exam Narrative: GEN: no acute distress HEENT: moist mucous membranes, PERRL NECK: trachea midline CV: regular rate and rhythm, no murmurs PULM: clear bilaterally, no wheezes, rhonchi rales ABD: soft, mildly tender periumbilical and epigastric, no rebound/guarding, normal bowel sounds, midline scar well healing EXT: warm and well perfused with trace edema NEURO: awake alert oriented, no focal deficits noted PSYCH: pleasant, cooperative Objective Labs Result Diagrams: 05/28/21 00:45 05/28/21 00:45 Labs: Laboratory Results - last 24 hr 05/28/21 05/28/21 05/28/21 00:45 00:45 00:45 WBC 7.7 RBC 2.74 L Hgb 9.2 L Hct 26.5 L MCV 96.6 MCH 33.5 MCHC 34.7 RDW 17.1 H Plt Count 438 H Neut % (Auto) 63.8 Lymph % (Auto) 22.5 L [place] % (Auto) 10.3 Eos % (Auto) 2.1 Baso % (Auto) 1.3 Neut # (Auto) 4900 Lymph # (Auto) 1700 [place] # (Auto) 800 Eos # (Auto) 200 Baso # (Auto) 100 Sodium 134 L Potassium 5.0 Chloride 97 L Carbon Dioxide 34 H BUN 13 Creatinine 0.93 Estimated GFR 60.0 BUN/Creatinine Ratio 14.0 Glucose 98 Lactate 1.5 Calcium 8.3 L Magnesium Total Bilirubin 0.6 AST 42 H ALT 15 Alkaline Phosphatase 66 Lactate Dehydrogenase Total Protein 6.4 Albumin 3.0 L Globulin 3.4 Albumin/Globulin Ratio 0.9 L Triglycerides Cholesterol LDL Cholesterol, Calc HDL Cholesterol Amylase Lipase 1495 H SARS-CoV-2 (PCR) 05/28/21 05/28/21 05/28/21 00:45 00:45 00:45 WBC RBC Hgb Hct MCV MCH MCHC RDW Plt Count Neut % (Auto) Lymph % (Auto) [place] % (Auto) Eos % (Auto) Baso % (Auto) Neut # (Auto) Lymph # (Auto) [place] # (Auto) Eos # (Auto) Baso # (Auto) Sodium Potassium Chloride Carbon Dioxide BUN Creatinine Estimated GFR BUN/Creatinine Ratio Glucose Lactate Calcium Magnesium 2.2 Total Bilirubin AST ALT Alkaline Phosphatase Lactate Dehydrogenase 989 H Total Protein Albumin Globulin Albumin/Globulin Ratio Triglycerides 136 Cholesterol 153 LDL Cholesterol, Calc 82 HDL Cholesterol 44 Amylase 155 H Lipase SARS-CoV-2 (PCR) 05/28/21 06:15 WBC RBC Hgb Hct MCV MCH MCHC RDW Plt Count Neut % (Auto) Lymph % (Auto) [place] % (Auto) Eos % (Auto) Baso % (Auto) Neut # (Auto) Lymph # (Auto) [place] # (Auto) Eos # (Auto) Baso # (Auto) Sodium Potassium Chloride Carbon Dioxide BUN Creatinine Estimated GFR BUN/Creatinine Ratio Glucose Lactate Calcium Magnesium Total Bilirubin AST ALT Alkaline Phosphatase Lactate Dehydrogenase Total Protein Albumin Globulin Albumin/Globulin Ratio Triglycerides Cholesterol LDL Cholesterol, Calc HDL Cholesterol Amylase Lipase SARS-CoV-2 (PCR) Negative Assessment & Plan Assessment & Plan narrative: Ms. Watkins is a 70W with complicated past medical history who presents with abdominal pain found to have elevated lipase. 1. Abdominal pain, pancreatitis, acute, possible acalculous cholecystitis with history of ulcerative cholitis -patient with complicated history with ulcerative colitis in the past -recent ex-lap for free air showed no etiology or evidence of perforation -lipase elevated consistent with acute pancreatitis -no evidence of gallstones, no drinking history, calcium and triglycerides normal -divalproex is commonly associated with pancreatitis, and can occur in delayed cases -hold divalproex -IV fluid repletion, and IV opiates for pain control -clear liquid diet -imaging showed dilated gallbladder with no evidence of stones, question of acalculous cholecystitis, she has no fever or leukocytosis -for now order IV antibiotics -CT shows free fluid in pelvis, etiology may be post-operative, less likely pancreas in origin -MRCP ordered to evaluate biliary system -general surgery consulted 2. Anemia of chronic disease -trend daily -dietary consult 3. Protein calorie malnutrition -dietary consult 4. Bipolar disorder -continue lamictal -hold divalproex 5. Hypothyroidism -continue synthroid 6. Hypertension -hold anti-hypertensives for now CODE: Full Proxy: Willard Vela, I have utilized all resources available to reconcile the patient's home medications. Time Spent With Patient Critical Care time: I spent a total of [] minutes of critical care time on this patient's care today; this time is exclusive of procedural time. Quality MIPS - Admit I confirm the patient?s Advance Care Plan is present, Code status is documented, Surrogate decision maker is in patient?s record [If Yes, STOP here]: Yes
[2021-05-28] MEDS: LORazepam 2 MG/ML INJ 1 MG IV (14:19)
[2021-05-28] MEDS: lamoTRIgine 100 MG TABLET 400 MG PO (14:20)
[2021-05-28] MEDS: CEFEPIME 1 GM in SODIUM CHLORIDE 0.9% 100 ML 200 ML IV (14:21)
[2021-05-28] MEDS: LEVOTHYROXINE 75 MCG TABLET PO (14:24)
--- NOTE | 2021-05-28 15:09 | PC.NURSE ---
Day shift: Pt off unit at approx 1510 for MRI. Given Ativan per MAR per MD for anxiety prior to having the MRI.
--- NOTE | 2021-05-28 15:14 | DIET.CONS ---
Dietary Consultation Note Admission Date: 05/28/2021 07:14 Assessment: 70 y/o F admitted with abdominal pain with PMH of UC s/p subtotal colectomy with ileoanal pouch. Extensive GI hx with abdominal surgeries. Pt with anemia. Pt receiving PNV with iron. Pt not appropriate for full assessment today. Had difficulty answering questions, very lethargic, appears she was just given ativan and then had to leave for MRI. Consultation cut short today, but pt report poor PO over the last 3-4 days. Free fluid present in her pelvis per staff notes. Moderate muscle wasting in shoulders upon NFPA. No weight loss documented compared to past wts, however that could be masked by fluid accumulation. Ht: 154.94 cm Wt: 58 kg BMI: 24.1 Last BM: 05/26/21 (05/28/21 11:08) MNA: 13 Sean Score: 20 Diet: 05/28/21 Lunch Clear Liquid Diet Diet Modifications: Ensure with each meal Labs: RBC 2.74 X10^6/uL (4.0-5.2) L 05/28/21 00:45 Hgb 9.2 g/dL (12.0-16.0) L 05/28/21 00:45 Hct 26.5 % (36-46) L 05/28/21 00:45 Creatinine 0.93 mg/dL (0.52-1.04) 05/28/21 00:45 Lactate 1.5 mmol/L (0.7-2.1) 05/28/21 00:45 Nutrition Diagnosis: Predicted moderate acute on chronic protein malnutrition r/t loss of appetite with abdominal pain aeb fluid accumulation, moderate muscle wasting and reported poor PO Interventions: Ensure clear ONS and Zbigniew slushy daily from kitchen Monitoring/Evaluations: RD f/u in 3 days, PO, ONS tolerance Electronically Signed by: Wilma Chaudhry 05/28/21 15:14 Clinical Dietitian [address] [address]
[2021-05-28] MEDS: SODIUM CHLORIDE 0.9% FLUSH 10 ML IV (21:48)
[2021-05-29] VITALS (9 sets, daily range): BP systolic 134–165; BP diastolic 69–94; PULSE 75–96; RESP 14–18; TEMP 36.4–36.9; O2SAT 94–97
[2021-05-29] MEDS: HYDROMORPHONE 0.5 MG INJ IV ×4 (00:17→21:30)
--- NOTE | 2021-05-29 00:48 | PC.NURSE ---
Patient is alert and oriented except to year. Breath sounds CTA with RA sat of 100%. HRR. Denied nausea. BT present and abdomen is soft but complained of diffuse abdominal pain and was medicated with Dilaudid at 2026 and now again is complaining of lower abdominal pain with severity of 8/10 so medicated again with Dilaudid. States she has burning/pain with urination and has been getting up to bathroom frequently (has IVF infusing at 200cc/h). Is able to move herself in bed and up to bathroom with walker and SBA. Refuses to wear SCD's so reminded to ankle wave. Neck wound culture is positive on gram stain for gm + cocci so placed in contact isolation. Fall risk score is high and bed alarm is activated.
[2021-05-29] MEDS: CEFEPIME 1 GM in SODIUM CHLORIDE 0.9% 100 ML 200 ML IV ×2 (01:50→13:00)
[2021-05-29] MEDS: SODIUM CHLORIDE 0.9% 1,000 ML 200 ML IV (03:52)
[2021-05-29] MEDS: SODIUM CHLORIDE 0.9% FLUSH 10 ML IV ×6 (06:00→21:31)
[2021-05-29 06:12] LABS: INR 1.1 (0.9-1.3); Prothrombin Time 12.2 SECONDS (10.1-12.7)
[2021-05-29 06:14] LABS: Add Manual Diff / Slide Review NO; Basophils Absolute Auto 0 /uL (0-100); Basophils Percent Auto 0.5 % (0-2); Eosinophils Absolute Auto 200 /uL (0-450); Eosinophils Percent Auto 3.4 % (2-4); Hemoglobin 7.9 g/dL (12.0-16.0); Lymphocytes Absolute Auto 1600 /uL (1100-4500); Lymphocytes Percent Auto 24.7 % (25-40); Mean Corpuscular HGB Conc 33.3 % (30-36); Mean Corpuscular Hemoglobin 32.5 PG (26-34); Mean Corpuscular Volume 97.6 fL (80-100); Monocytes Absolute Auto 800 /uL (0-900); Monocytes Percent Auto 12.9 % (3-14); Neutrophils Absolute Auto 3700 /uL (1500-7000); Neutrophils Percent Auto 58.5 % (50-75); Platelet Count 451 X10^3/uL (150-400); Red Blood Cell Count 2.44 X10^6/uL (4.0-5.2); Red Cell Distribution Width 17.5 % (11.6-14.8); White Blood Cell Count 6.3 X10^3/uL (4.5-11.0)
[2021-05-29] MEDS: LEVOTHYROXINE 75 MCG TABLET PO (06:15)
[2021-05-29] MEDS: PANTOPRAZOLE DR 40 MG TABLET PO (06:15)
[2021-05-29 06:17] LABS: Hematocrit 23.8 % (36-46)
[2021-05-29 06:18] LABS: Alanine Aminotransferase 11 IU/L (<35); Albumin 2.6 g/dL (3.5-5.0); Alkaline Phosphatase 80 U/L (38-126); Aspartate Aminotransferase 23 IU/L (14-36); BUN Creatinine Ratio 10.8 (6-22); Bilirubin Total 0.3 mg/dL (0.2-1.3); Bilirubin Unconjugated 0.2 mg/dL (0.0-1.1); Blood Urea Nitrogen 7 mg/dL (7-17); Calcium 8.1 mg/dL (8.4-10.2); Carbon Dioxide 27 mmol/L (22-32); Chloride 108 mmol/L (98-107); Estimated Glomerular Filt Rate > 60.0 mL/min (>60); Globulin 2.6 g/dL (1.7-4.1); Glucose 98 mg/dL (80-110); HEMOLYSIS < 15 (0-50); Potassium 4.4 mmol/L (3.4-5.1); Sodium 136 mmol/L (137-145); Total Protein 5.2 g/dL (6.3-8.2)
[2021-05-29 06:19] LABS: C-Reactive Protein Quant 3.2 mg/dL (<1.0)
[2021-05-29 06:23] LABS: Prealbumin 15.5 mg/dL (17.6-36.0)
[2021-05-29] MEDS: lamoTRIgine 100 MG TABLET 400 MG PO (08:05)
[2021-05-29] MEDS: PRENATAL VIT,CALC/IRON/FOLIC 1 TABLET 1 TAB PO (08:06)
--- NOTE | 2021-05-29 09:41 | P.PN_ITS ---
Subjective Subjective Date Patient Seen: 05/29/21 Time Patient Seen: 08:00 Interval history: She still states she has abdominal pain. Slight nausea. Tolerating clears. No fevers. Exam Vital Signs (past 8 hours): - 05/29/21 04:34 05/29/21 09:11 Temperature 98.0 F Pulse Rate 78 Respiratory Rate 18 Blood Pressure 155/75 H Pulse Oximetry 94 97 Oxygen Delivery Method Room Air Oxygen Flow Rate 0 Narrative Exam Narrative: GEN: no acute distress HEENT: moist mucous membranes, PERRL NECK: trachea midline CV: regular rate and rhythm, no murmurs PULM: clear bilaterally, no wheezes, rhonchi rales ABD: soft, mildly tender periumbilical and epigastric, no rebound/guarding, normal bowel sounds, midline scar well healing EXT: warm and well perfused with trace edema NEURO: awake alert oriented, no focal deficits noted PSYCH: pleasant, cooperative Objective Labs Result Diagrams: 05/29/21 05:45 05/29/21 05:45 Labs: Laboratory Results - last 24 hr 05/29/21 05/29/21 05/29/21 05:45 05:45 05:45 WBC 6.3 RBC 2.44 L Hgb 7.9 L Hct 23.8 L MCV 97.6 MCH 32.5 MCHC 33.3 RDW 17.5 H Plt Count 451 H Neut % (Auto) 58.5 Lymph % (Auto) 24.7 L [place] % (Auto) 12.9 Eos % (Auto) 3.4 Baso % (Auto) 0.5 Neut # (Auto) 3700 Lymph # (Auto) 1600 [place] # (Auto) 800 Eos # (Auto) 200 Baso # (Auto) 0 PT 12.2 INR 1.1 Sodium Potassium Chloride Carbon Dioxide BUN Creatinine Estimated GFR BUN/Creatinine Ratio Glucose Calcium Total Bilirubin Conjugated Bilirubin Unconjugated Bilirubin AST ALT Alkaline Phosphatase C-Reactive Protein 3.2 H Total Protein Albumin Globulin Albumin/Globulin Ratio Prealbumin 15.5 L 05/29/21 05:45 WBC RBC Hgb Hct MCV MCH MCHC RDW Plt Count Neut % (Auto) Lymph % (Auto) [place] % (Auto) Eos % (Auto) Baso % (Auto) Neut # (Auto) Lymph # (Auto) [place] # (Auto) Eos # (Auto) Baso # (Auto) PT INR Sodium 136 L Potassium 4.4 Chloride 108 H Carbon Dioxide 27 BUN 7 Creatinine 0.65 Estimated GFR > 60.0 BUN/Creatinine Ratio 10.8 Glucose 98 Calcium 8.1 L Total Bilirubin 0.3 Conjugated Bilirubin 0.0 Unconjugated Bilirubin 0.2 AST 23 ALT 11 Alkaline Phosphatase 80 C-Reactive Protein Total Protein 5.2 L Albumin 2.6 L Globulin 2.6 Albumin/Globulin Ratio 1.0 Prealbumin PFSH Medical History Generalized weakness Small bowel obstruction Social History household members: spouse Smoking Status: Never smoker alcohol intake: former Assessment & Plan Assessment & Plan narrative: 1. Abdominal pain, pancreatitis, acute, possible acalculous cholecystitis with history of ulcerative cholitis -patient with complicated history with ulcerative colitis in the past -recent ex-lap for free air showed no etiology or evidence of perforation -lipase elevated consistent with acute pancreatitis -no evidence of gallstones, no drinking history, calcium and triglycerides normal -divalproex is commonly associated with pancreatitis, and can occur in delayed cases -hold divalproex -IV fluid repletion, and IV opiates for pain control -clear liquid diet -imaging showed dilated gallbladder with no evidence of stones, question of acalculous cholecystitis, she has no fever or leukocytosis -for now order IV antibiotics with cefepime -CT shows free fluid in pelvis, etiology may be post-operative, less likely pancreas in origin -MRCP ordered to evaluate biliary system and showed patent ducts and dilated gallbladder -general surgery consulted 2. Anemia of chronic disease -trend daily -dietary consult 3. Protein calorie malnutrition -dietary consult 4. Bipolar disorder -continue lamictal -hold divalproex 5. Hypothyroidism -continue synthroid 6. Hypertension -hold anti-hypertensives for now 7. Neck wound -from previous line -follow up gram stain and cultures Time Spent With Patient Critical Care time: I spent a total of [] minutes of critical care time on this patient's care today; this time is exclusive of procedural time.
--- NOTE | 2021-05-29 11:36 | CM.DANOTE ---
Discharge Assessment Note Patient is 70yo F who is admitted for pancreatitis and elevated lipase. Patient from [facility]; placed at [facility] 05/24 after bowel surgery at [facility] late April. Patient somnolent and not feeling well enough to engage with assessment. CONCRETER contacted patient's spouse, Willard, who reported patient is independent at baseline (prior to surgery in April), occasionally using a cane for ambulation. Spouse reported patient has chronic hip concern so they have installed an automated stair climber at home for patient to navigate their stairs. Spouse inquiring if patient will require hospital bed at time of discharge from [facility]; this inquiry passed along to November at [facility]. Spouse anticipates patient requiring HH at time of dc from [facility] as well. November reported patient has been ambulating with walker with 1 person assist in their facility and is receiving OT/PT services. November reported it is anticipated that patient will discharge back to their facility. P: discharge back to [facility] when medically stable. Care management will continue to follow patient throughout course of admission for discharge planning needs as they arise. Ins: Medicare with [employer] secondary Rahul NEFF Discharge Planning/Care Management CM Discharge Assessment Start: 05/29/21 11:31 Freq: Status: Active Protocol: Document 05/29/21 11:32 DINORAH (Rec: 05/29/21 11:36 FJ [id number]) Discharge Planning Assessment Assigned [employer] Rahul HIDALGOSW DPOA/Assigned Designee Name Spouse Willard Vela Contact Information [phone] Advance Directives? No History Provided By Family Member,Medical Record Has Patient been admitted in last 30 No days? Prior Living Arrangements Skilled Nurse Facility Comment [facility] since 05/24 Household Members spouse Type of transporation used prior to Drives own vehicle admit Facility Name Admitted From: [facility] Willing to Return to Facility? Yes Independent with ADL's Yes: prior to surgery/plcmt at [facility] Is patient alert and oriented? No: Pt was somnolent and unable to arouse during assmt Caregiver for Another No DME Already Rented / Owned FWW / Walker Comment spouse inquiring if hospital bed necessary Patient/Family Preference Group Home Facility Comment return to [facility] Barriers to Discharge No Discharge Plan Group Home Facility Transportation Arrangement as arranged by [facility] Referrals Initiated None needed Additional Comment Patient can return to [facility] Has Agency SNF been contacted Yes Comment Return to [facility] Updated in Patient Room with No name and ext. # of [employer] Review Status In Process Next Review Type Continued Stay Review
[2021-05-29] MEDS: ONDANSETRON 4 MG/2 ML INJ IV ×3 (11:50→21:30)
--- NOTE | 2021-05-29 11:55 | PC.NURSE ---
Day shift: Pt sleeping with occasional waking and dry heaves w/ reported nausea. Gave IV Zofran per AUG. She did spit up and a small spot of mucous w/ milagro blood. Dr Epps was made aware. Pt back asleep at this time. 1200. Call light in reach and bed alarm is on.
--- NOTE | 2021-05-29 12:33 | PC.NURSE ---
Day shift: Pt did not want her lunch this afternoon. Lunch is at RN station for now if Pt changes her mind in the next hour approx.
--- NOTE | 2021-05-29 13:30 | PC.NURSE ---
Day shift: This typewriter aligner unable to draw blood from midline at approx 1330 today. Repositioned Pt and her arm still unable.
--- NOTE | 2021-05-29 14:30 | PC.NURSE ---
Day shift: Pt has been sleeping on and off this afternoon. Wakes up and stated I'm sick and coughs and groans then goes back to sleep. VS WNL. RA 96%. Has had approx 10mls of emesis mixed with saliva over the last 4 hours. Bed alarm is on and call light in reach. The 0.5mg of IV Dilaudid seems to affect her mentation and Dr Epps aware of this.
--- NOTE | 2021-05-29 16:48 | PC.NURSE ---
Day shift: Pt's spouse Willard in room this afternoon for support. Willard did state that he has seen Shikha like this before (referring to the dry heaves, sleeping/waking, and her mental state). Pt is asleep at this time w/ no s/s of pain or discomfort.
--- NOTE | 2021-05-29 17:24 | PC.NURSE ---
Day shift: Dr Epps informed that Pt did not eat lunch or dinner today and has had no fluid intake since this AM. Pt remains restful with periodic wakeful moments with dry heaves and then falls back asleep. Bed alarm is on and door to room is open.
--- NOTE | 2021-05-29 18:51 | PC.NURSE ---
Day shift: Pt incontinent of urine this evening. Brief wet as well as bedding. She was changed and bedding too at approx 1800 and tolerated it fairly well but did say Just let it be. Just let it be. Willard back in room at approx 1845. She is able to move herself and help but complains. She is also able to lift her legs and make a fist with both hands. Remains sleepy and tired. Call light in reach and bed alarm is on.
--- NOTE | 2021-05-29 22:05 | PC.NURSE ---
Addendum entered by Teresa Mena R.N. 05/30/21 03:46: Patient's condition again discussed with Irving FARFAN, and updated on patient's continued dry heaves and complaints of being so sick. Is more amenable to cares but is in obvious discomfort. Although, at this time, patient is denying any pain. Addendum entered by Teresa Mena R.N. 05/30/21 03:33: Has had no urine output last 2 times repositioned but now again incontinent of large amount of urine. Patient again hollering at staff I'm so sick but apologized when staff requested she not yell. Is having dry heaves so medicated with IV Zofran. Had low grade temp earlier at 99.1 but is currently 97.5. Original Note: Behavior completely different from last night. Patient lying quietly in bed without complaint but as soon as staff started providing care becomes angry, hollers out loudly and began making dry heave sounds. States she has to urinate when asked but refuses to get out of bed stating No! I'm too sick. Is now incontinent of urine. Did respond to some orientation questions with repeated questioning but hollers out responses. Toward end of assessment stopped responding to any questions and refusing to follow direction. Irving FARFAN, informed of change. Breath sounds diminished but difficult to assess as patient would not follow direction to deep breathe. HRR with elevated BP of 163/74. Medicated with Zofran for complaint of nausea; no emesis. BT present; abdomen is tender to palpation and mildly distended and has not had a BM since 05/26. Since patient is not moving herself tonight will reposition q2h and change brief; did discuss importance of calling for assistance and getting up to urinate rather than be incontinent. Remains on contact isolation as final wound culture not completed as yet. Refuses SCD's so reminded to ankle wave. Fall risk score is high and bed alarm is activated. Medicated with IV Dilaudid for complaint of 9/10 pain all over.
[2021-05-30] VITALS (13 sets, daily range): BP systolic 139–171; BP diastolic 62–78; PULSE 67–83; RESP 15–18; TEMP 36.7–37.3; O2SAT 94–96
[2021-05-30] MEDS: CEFEPIME 1 GM in SODIUM CHLORIDE 0.9% 100 ML 200 ML IV ×2 (01:32→12:57)
[2021-05-30] MEDS: SODIUM CHLORIDE 0.9% 250 ML 21 ML IV (01:32)
[2021-05-30] MEDS: SODIUM CHLORIDE 0.9% FLUSH 10 ML IV ×5 (01:33→21:51)
[2021-05-30] MEDS: ONDANSETRON 4 MG/2 ML INJ IV ×5 (03:15→21:51)
[2021-05-30 06:37] LABS: Hematocrit 23.7 % (36-46); Hemoglobin 8.2 g/dL (12.0-16.0); Mean Corpuscular HGB Conc 34.5 % (30-36); Mean Corpuscular Hemoglobin 33.2 PG (26-34); Mean Corpuscular Volume 96.5 fL (80-100); Platelet Count 450 X10^3/uL (150-400); Red Blood Cell Count 2.46 X10^6/uL (4.0-5.2); Red Cell Distribution Width 17.1 % (11.6-14.8); White Blood Cell Count 6.6 X10^3/uL (4.5-11.0)
[2021-05-30 06:41] LABS: BUN Creatinine Ratio 11.5 (6-22); Blood Urea Nitrogen 7 mg/dL (7-17); Calcium 8.5 mg/dL (8.4-10.2); Carbon Dioxide 31 mmol/L (22-32); Chloride 99 mmol/L (98-107); Estimated Glomerular Filt Rate > 60.0 mL/min (>60); Glucose 112 mg/dL (80-110); HEMOLYSIS < 15 (0-50); Potassium 3.6 mmol/L (3.4-5.1); Sodium 133 mmol/L (137-145)
--- NOTE | 2021-05-30 11:18 | PM.PN.1 ---
Subjective Subjective Date Patient Seen: 05/30/21 Interval history: Chart reviewed. Patient remains symptomatic with medical management. Exam Vital Signs (past 8 hours): - 05/30/21 05:51 05/30/21 06:12 05/30/21 08:35 Temperature 99.1 F Pulse Rate 82 Respiratory Rate 15 Blood Pressure 163/72 H Pulse Oximetry 95 95 95 05/30/21 09:36 Temperature Pulse Rate Respiratory Rate Blood Pressure Pulse Oximetry 96 Oxygen Delivery Method Room Air Oxygen Flow Rate 0 Objective Labs Result Diagrams: 05/30/21 05:47 05/30/21 05:47 Labs: Laboratory Results - last 24 hr 05/29/21 05/30/21 05/30/21 13:30 05:47 05:47 WBC 6.6 RBC 2.46 L Hgb 8.2 L Hct 23.7 L MCV 96.5 MCH 33.2 MCHC 34.5 RDW 17.1 H Plt Count 450 H Sodium 133 L Potassium 3.6 Chloride 99 Carbon Dioxide 31 BUN 7 Creatinine 0.61 Estimated GFR > 60.0 BUN/Creatinine Ratio 11.5 Glucose 112 H Calcium 8.5 Blood Type A Negative Antibody Screen Negative [facility] Medical History Generalized weakness Small bowel obstruction Social History household members: spouse Smoking Status: Never smoker alcohol intake: former Assessment & Plan Assessment & Plan narrative: Agree with transfer to facility that has IR for cholecystoscopy tube for possible acalculus cholecystitis. COVID-19 COVID-19 status: Negative Time Spent With Patient Critical Care time: I spent a total of [] minutes of critical care time on this patient's care today; this time is exclusive of procedural time.
[2021-05-30] MEDS: SODIUM CHLORIDE 0.9% 1,000 ML 84 ML IV (11:51)
[2021-05-30] MEDS: HYDROMORPHONE 0.5 MG INJ IV ×3 (13:02→21:51)
--- NOTE | 2021-05-30 13:34 | PM.PN.1 ---
Subjective Subjective Date Patient Seen: 05/30/21 Interval history: The patient is a 70-year-old female admitted to the hospital with abdominal pain, status post exploratory laparotomy for free air in the abdomen which was -1 week ago. She continues to complain of nausea, and some mild abdominal pain. Patient states she would like to get ?the tube put in.? Exam Vital Signs (past 8 hours): - 05/30/21 05:51 05/30/21 06:12 05/30/21 08:35 Temperature 99.1 F Pulse Rate 82 Respiratory Rate 15 Blood Pressure 163/72 H Pulse Oximetry 95 95 95 05/30/21 09:36 05/30/21 12:45 05/30/21 13:05 Temperature 98.8 F Pulse Rate 79 Respiratory Rate 15 Blood Pressure 140/78 Pulse Oximetry 96 96 95 Oxygen Delivery Method Room Air Oxygen Flow Rate 0 Narrative Exam Narrative: Ill-appearing female lying in bed Resp Other: Lungs clear to auscultation Cardio Other: Cardiac exam: Regular rate and rhythm normal S1-S2 GI Other: Abdomen soft nontender nondistended Extrem Other: Extremity no edema Objective Labs Result Diagrams: 05/30/21 05:47 05/30/21 05:47 Labs: Laboratory Results - last 24 hr 05/29/21 05/30/21 05/30/21 13:30 05:47 05:47 WBC 6.6 RBC 2.46 L Hgb 8.2 L Hct 23.7 L MCV 96.5 MCH 33.2 MCHC 34.5 RDW 17.1 H Plt Count 450 H Sodium 133 L Potassium 3.6 Chloride 99 Carbon Dioxide 31 BUN 7 Creatinine 0.61 Estimated GFR > 60.0 BUN/Creatinine Ratio 11.5 Glucose 112 H Calcium 8.5 Blood Type A Negative Antibody Screen Negative [facility] Medical History Generalized weakness Small bowel obstruction Social History household members: spouse Smoking Status: Never smoker alcohol intake: former Assessment & Plan Assessment & Plan narrative: Abdominal pain, pancreatitis, acute, possible acalculous cholecystitis with history of ulcerative cholitis -patient with complicated history with ulcerative colitis in the past -recent ex-lap for free air showed no etiology or evidence of perforation -lipase elevated consistent with acute pancreatitis -no evidence of gallstones, no drinking history, calcium and triglycerides normal -divalproex is commonly associated with pancreatitis, and can occur in delayed cases -hold divalproex -IV fluid repletion, and IV opiates for pain control -clear liquid diet -imaging showed dilated gallbladder with no evidence of stones, question of acalculous cholecystitis, she has no fever or leukocytosis -for now order IV antibiotics with cefepime -CT shows free fluid in pelvis, etiology may be post-operative, less likely pancreas in origin -MRCP ordered to evaluate biliary system and showed patent ducts and dilated gallbladder -general surgery consulted -general surgery recommends repeat LFTs, goal will be transfer to an outside facility for IR Assisted cholecystostomy tube If the patient is unable to be transferred consider having the cholecystostomy tube placed here 2. Anemia of chronic disease -trend daily -dietary consult -H&H 02/09, if it drops further we will consider transfusion 3. Protein calorie malnutrition -dietary consult 4. Bipolar disorder -continue lamictal -hold divalproex 5. Hypothyroidism -continue synthroid 6. Hypertension -hold anti-hypertensives for now 7. Neck wound -from previous line -follow up gram stain and cultures -cultures growing Pseudomonas, will switch antibiotics to cover I have utilized all available means to review update and confirm the patient's current medications Time Spent With Patient Critical Care time: I spent a total of [] minutes of critical care time on this patient's care today; this time is exclusive of procedural time.
[2021-05-30 14:53] LABS: Alanine Aminotransferase 11 IU/L (<35); Albumin 2.8 g/dL (3.5-5.0); Albumin Globulin Ratio 0.9 (1.0-2.8); Alkaline Phosphatase 79 U/L (38-126); Aspartate Aminotransferase 29 IU/L (14-36); Bilirubin Total 0.3 mg/dL (0.2-1.3); Bilirubin Unconjugated 0.2 mg/dL (0.0-1.1); Globulin 3.1 g/dL (1.7-4.1); HEMOLYSIS < 15 (0-50); Lipase 527 U/L (23-300); Total Protein 5.9 g/dL (6.3-8.2)
--- NOTE | 2021-05-30 15:37 | PC.NURSE ---
Day shift: Pt has been milse and cooperative with care this afternoon. Tolerated Ty placement. Has been making her needs known proper. Still complains of nausea and ABD pain. Call light in reach and bed alarm is on. Pt is A&Ox4 at this time (0490).
--- NOTE | 2021-05-30 17:35 | PC.NURSE ---
Day shift: Pt doing well at this time (1730). Making needs known and is A&Ox4. Medicated for ABD pain 01/26 per AUG.
[2021-05-31] VITALS (10 sets, daily range): BP systolic 123–144; BP diastolic 63–86; PULSE 66–70; RESP 15–18; TEMP 36.8–37.5; O2SAT 94–99
[2021-05-31] MEDS: SODIUM CHLORIDE 0.9% 1,000 ML 84 ML IV ×2 (00:04→19:46)
[2021-05-31] MEDS: ONDANSETRON 4 MG/2 ML INJ IV ×5 (01:36→23:05)
[2021-05-31] MEDS: HYDROMORPHONE 0.5 MG INJ IV ×6 (01:36→23:05)
[2021-05-31] MEDS: CEFEPIME 1 GM in SODIUM CHLORIDE 0.9% 100 ML 200 ML IV ×2 (01:36→16:06)
[2021-05-31] MEDS: SODIUM CHLORIDE 0.9% FLUSH 10 ML IV ×4 (01:37→23:05)
[2021-05-31] MEDS: diphenhydrAMINE 50 MG/ML VIAL 25 MG IV (03:30)
[2021-05-31] MEDS: PANTOPRAZOLE DR 40 MG TABLET PO (06:03)
[2021-05-31] MEDS: LEVOTHYROXINE 75 MCG TABLET PO (06:03)
--- NOTE | 2021-05-31 06:37 | DI.NM.S_ITS ---
PROCEDURE: NM HIDA WITH CCK PHARMACEUTICAL: 5.5 mCi Tc-99m mebrofenin IV; 1.1 mcg CCK IV. INDICATIONS: acalculus cholecystitis?? TECHNIQUE: Following intravenous administration of Tc-99m mebrofenin, sequential anterior abdominal images were obtained. To evaluate the contractile response of the gallbladder in response to Cholecystokinin (CCK), sincalide (0.02 ?g/kg) was administered by slow intravenous infusion approximately 60 minutes after the administration of the radiopharmaceutical. Sequential imaging was continued for 30 minutes after the start of CCK infusion. Gallbladder ejection fraction was calculated. COMPARISON: [facility], CT, CT ABDOMEN PELVIS W CON, 05/28/2021, 4:59. [facility], MR, MR ABDOMEN WO CON, 05/28/2021, 15:15. [facility], US, US ABDOMEN LIMITED, 05/28/2021, 6:34. FINDINGS: Biliary scan: There is normal tracer uptake and excretion by the liver. There is normal visualization of the intrahepatic ducts, common bile duct, and gallbladder. There is normal tracer transit into the duodenum. CCK stimulation: There is poor contractile response of the gallbladder to CCK infusion. The calculated gallbladder ejection fraction is -18%; normal values are above 35%. There is prominent bile reflux into the stomach. It has been shown that any patient abdominal pain after CCK administration is related to the rate of CCK injection, rather than to any underlying gallbladder disease (Clinical Nuclear Medicine 2012; 37: 63-70. Journal of Nuclear Medicine 2014; 55: 1-9). IMPRESSION: 1. Normal filling of gallbladder. No evidence for acute cholecystitis. 2. Poor contractile response of gallbladder to CCK stimulation consistent with gallbladder dyskinesia. 3. Bile reflux into the stomach. Dictated by: Haresh Hilton M.D. on 05/31/2021 at 15:53 Approved by: Haresh Hilton M.D. on 05/31/2021 at 15:56
[2021-05-31 06:57] LABS: BUN Creatinine Ratio 12.3 (6-22); Blood Urea Nitrogen 8 mg/dL (7-17); Calcium 7.6 mg/dL (8.4-10.2); Carbon Dioxide 27 mmol/L (22-32); Chloride 109 mmol/L (98-107); Estimated Glomerular Filt Rate > 60.0 mL/min (>60); Glucose 88 mg/dL (80-110); HEMOLYSIS 29 (0-50); Potassium 3.3 mmol/L (3.4-5.1); Sodium 138 mmol/L (137-145)
[2021-05-31] MEDS: SCOPOLAMINE 1 PATCH TOP (09:35)
--- NOTE | 2021-05-31 09:35 | P.PN_ITS ---
Subjective Subjective Date Patient Seen: 05/31/21 Time Patient Seen: 09:35 Interval history: Patient continues to complain of epigastric pain and nausea Exam Vital Signs (past 8 hours): - 05/31/21 03:00 05/31/21 05:00 05/31/21 07:26 Temperature 99.0 F 98.9 F Pulse Rate 67 66 Respiratory Rate 18 15 Blood Pressure 139/81 144/74 H Pulse Oximetry 94 96 97 Oxygen Delivery Method Room Air Oxygen Flow Rate 0 Narrative Exam Narrative: Animated, no distress, no toxic. No guarding as she moves easily in the bed. Const Nutritional Appearance: average body habitus [facility] Head: normocephalic and atraumatic Eyes Sclera: sclerae normal Neck Neck: trachea midline Resp Effort & Inspection: normal respiratory effort and able to speak in complete sentences Cardio Rate: regular rate Rhythm: regular rhythm Neuro Cognition: normal cognition Objective Labs Result Diagrams: 05/30/21 05:47 05/31/21 06:30 Labs: Laboratory Results - last 24 hr 05/30/21 05/31/21 05:47 06:30 Sodium 138 Potassium 3.3 L Chloride 109 H Carbon Dioxide 27 BUN 8 Creatinine 0.65 Estimated GFR > 60.0 BUN/Creatinine Ratio 12.3 Glucose 88 Calcium 7.6 L Total Bilirubin 0.3 Conjugated Bilirubin 0.0 Unconjugated Bilirubin 0.2 AST 29 ALT 11 Alkaline Phosphatase 79 Total Protein 5.9 L Albumin 2.8 L Globulin 3.1 Albumin/Globulin Ratio 0.9 L Lipase 527 H D [facility] Medical History Generalized weakness Small bowel obstruction Social History household members: spouse Smoking Status: Never smoker alcohol intake: former Assessment & Plan Assessment & Plan narrative: Pancreatitis of unknown etiology, lipase remains elevated. Ascites vs free fluid from recent Xlap Possible acalculus cholecystitis however her leukocytosis resolved, and LFT's have never been elevated. RUQ tenderness and radiographic changes were the only concerns. Plan is HIDA and possible cholecystostomy tube (for which she will need transfer. If transfer is not possible and HIDA is positive, I may be up for percutaneous drain. Severe protein malnutrition: Dietary consult. Time Spent With Patient Critical Care time: I spent a total of [] minutes of critical care time on this patient's care today; this time is exclusive of procedural time.
[2021-05-31] MEDS: PRENATAL VIT,CALC/IRON/FOLIC 1 TABLET 1 TAB PO (09:37)
[2021-05-31] MEDS: lamoTRIgine 100 MG TABLET 400 MG PO (09:37)
[2021-05-31] MEDS: POTASSIUM CHLORIDE IN WATER 10 MEQ/100 ML PIGGYBACK 100 MEQ IV ×4 (09:48→13:44)
[2021-05-31] MEDS: SIMETHICONE 80 MG TABLET PO (09:50)
--- NOTE | 2021-05-31 13:53 | P.PN_ITS ---
Subjective Subjective Date Patient Seen: 05/31/21 Interval history: 70 y/o female admitted with abdominal pain and nausea 1 month after ex-lap. She reports continued pain and nausea. She would like to go to [place] as she has a GI doctor there. Exam Vital Signs (past 8 hours): - 05/31/21 07:00 05/31/21 07:26 05/31/21 11:00 Temperature 98.9 F Pulse Rate 66 Respiratory Rate 15 Blood Pressure 144/74 H Pulse Oximetry 95 97 96 05/31/21 11:21 05/31/21 11:42 Temperature 98.5 F Pulse Rate 70 Respiratory Rate 16 Blood Pressure 129/63 Pulse Oximetry 95 96 Oxygen Delivery Method Room Air Oxygen Flow Rate 0 Narrative Exam Narrative: pleasant female who appears much more comfortable today Chest Other: Lungs: clear to auscultation Cardio Other: CV: RRR nl Sl S2 GI Other: Abd: Soft/ tender in the right upper quadrant, no rebound tenderness, no palpable masses Extrem Other: no edema Objective Labs Result Diagrams: 05/30/21 05:47 05/31/21 06:30 Labs: Laboratory Results - last 24 hr 05/30/21 05/31/21 05:47 06:30 Sodium 138 Potassium 3.3 L Chloride 109 H Carbon Dioxide 27 BUN 8 Creatinine 0.65 Estimated GFR > 60.0 BUN/Creatinine Ratio 12.3 Glucose 88 Calcium 7.6 L Total Bilirubin 0.3 Conjugated Bilirubin 0.0 Unconjugated Bilirubin 0.2 AST 29 ALT 11 Alkaline Phosphatase 79 Total Protein 5.9 L Albumin 2.8 L Globulin 3.1 Albumin/Globulin Ratio 0.9 L Lipase 527 H D [facility] Medical History Generalized weakness Small bowel obstruction Social History household members: spouse Smoking Status: Never smoker alcohol intake: former Assessment & Plan Assessment & Plan narrative: ssessment & Plan narrative: Abdominal pain, pancreatitis, acute, possible acalculous cholecystitis with history of ulcerative cholitis -patient with complicated history with ulcerative colitis in the past -recent ex-lap for free air showed no etiology or evidence of perforation -lipase elevated consistent with acute pancreatitis -no evidence of gallstones, no drinking history, calcium and triglycerides normal -divalproex is commonly associated with pancreatitis, and can occur in delayed cases -hold divalproex -IV fluid repletion, and IV opiates for pain control -clear liquid diet -imaging showed dilated gallbladder with no evidence of stones, question of acalculous cholecystitis, she has no fever or leukocytosis -for now order IV antibiotics with cefepime -CT shows free fluid in pelvis, etiology may be post-operative, less likely pancreas in origin -MRCP ordered to evaluate biliary system and showed patent ducts and dilated gallbladder -general surgery consulted -general surgery recommends repeat LFTs, goal will be transfer to an outside facility for IR Assisted cholecystostomy tube, repeat lipase elevated at 527, need to r/o acute pancreatitis vs. acalculous cholecystitis If the patient is unable to be transferred consider having the cholecystostomy tube placed here -Await HIDA scan today, if results positive, will attempt transfer for cholecystomy tube placement -IF she is unable to transfer for her procedure, will pursue procedure here with Dr. Camargo 2. Anemia of chronic disease -trend daily -dietary consult -H&H 02/09, if it drops further we will consider transfusion -continue to monitor 3. Protein calorie malnutrition -dietary consult 4. Bipolar disorder -continue lamictal -hold divalproex 5. Hypothyroidism -continue synthroid 6. Hypertension -hold anti-hypertensives for now 7. Neck wound -from previous line -follow up gram stain and cultures -cultures growing Pseudomonas, will switch antibiotics to cover -Neck wound with associated bacterial infection Time Spent With Patient Critical Care time: I spent a total of [] minutes of critical care time on this patient's care today; this time is exclusive of procedural time.
--- NOTE | 2021-05-31 16:05 | P.PN_ITS ---
Subjective Subjective Interval history: Acalculus cholecystitis evaluation by HIDA shows that there is no acute c holecystitis or that it has resolved. Exam Vital Signs (past 8 hours): - 05/31/21 11:00 05/31/21 11:21 05/31/21 11:42 Temperature 98.5 F Pulse Rate 70 Respiratory Rate 16 Blood Pressure 129/63 Pulse Oximetry 96 95 96 05/31/21 15:35 Temperature 99.5 F Pulse Rate 70 Respiratory Rate 16 Blood Pressure 142/86 H Pulse Oximetry 99 Oxygen Delivery Method Room Air Oxygen Flow Rate 0 Objective Labs Result Diagrams: 05/30/21 05:47 05/31/21 06:30 Labs: Laboratory Results - last 24 hr 05/31/21 06:30 Sodium 138 Potassium 3.3 L Chloride 109 H Carbon Dioxide 27 BUN 8 Creatinine 0.65 Estimated GFR > 60.0 BUN/Creatinine Ratio 12.3 Glucose 88 Calcium 7.6 L PFSH Medical History Generalized weakness Small bowel obstruction Social History household members: spouse Smoking Status: Never smoker alcohol intake: former Assessment & Plan Assessment & Plan narrative: HIDA scan shows low ejection however no acute cholecystitis. Cholecystostomy tube will not likely improve her symptoms. Plan: do not need transfer for sue tube. Continue supportive care for pancreatitis. May not require on going IV antibiotics. Repeat CRP and CT scan in 5-7 days if symptoms have not improved Time Spent With Patient Critical Care time: I spent a total of [] minutes of critical care time on this patient's care today; this time is exclusive of procedural time.
[2021-06-01] VITALS (13 sets, daily range): BP systolic 128–159; BP diastolic 72–95; PULSE 68–79; RESP 16–20; TEMP 36.1–36.8; O2SAT 92–99
[2021-06-01] MEDS: CEFEPIME 1 GM in SODIUM CHLORIDE 0.9% 100 ML 200 ML IV ×2 (01:33→14:42)
[2021-06-01] MEDS: ONDANSETRON 4 MG/2 ML INJ IV ×4 (04:45→19:17)
[2021-06-01] MEDS: HYDROMORPHONE 0.5 MG INJ IV ×4 (04:45→19:17)
[2021-06-01] MEDS: LEVOTHYROXINE 75 MCG TABLET PO (04:47)
[2021-06-01] MEDS: PANTOPRAZOLE DR 40 MG TABLET PO (06:36)
[2021-06-01] MEDS: lamoTRIgine 100 MG TABLET 400 MG PO (09:03)
[2021-06-01] MEDS: SODIUM CHLORIDE 0.9% FLUSH 10 ML IV ×2 (09:14→21:22)
--- NOTE | 2021-06-01 09:57 | OT.IP.EVAL ---
Current Diagnoses Acute pancreatitis without necrosis or infection, unspecified (05/28/21) Past Medical History (Last Reviewed 05/28/21 @ 13:50 by Samuel pEps MD) Generalized weakness Small bowel obstruction Occupational Therapy Inpatient Evaluation/Re-Eval M2 OT-IP Current Condition Start: 06/01/21 12:46 Freq: Status: Active Protocol: Document 06/01/21 12:47 [facility] (Rec: 06/01/21 13:03 [facility] [id number]) Occupational Therapy Current Condition Current Condition Evaluation Date 06/01/21 Treatment Diagnosis Acute pancreatitis Diagnosis Onset Date 05/28/21 Post Operative Precautions Abdominal Surgery Precautions Log Roll,Lifting Restrictions, Gait Belt above Incisional Area M3 OT- IP Subjective and Pain Start: 06/01/21 12:46 Freq: Status: Active Protocol: Document 06/01/21 12:47 [facility] (Rec: 06/01/21 13:03 [facility] [id number]) OT- Subjective Occupational Therapy Visit Type Type Initial Evaluation Visit Start Time 09:27 Visit Stop Time 09:57 Total Visit Minutes 30 Occupational Therapy Visit Comments Patient Comments Pt agreed to get up. Patient/Caregiver Goals To go home if able or go back to skilled rehab if needed. OT Pain Assessment Pain When Pain Assessed At Rest Pain Present Pain Present Pain Reported Location Abdomen Intensity 7 Scale Used Numeric (0 - 10) M4 OT- IP ADL's Start: 06/01/21 12:46 Freq: Status: Active Protocol: Document 06/01/21 12:47 [facility] (Rec: 06/01/21 13:03 [facility] [id number]) OT [id number] Comments OT Self-Feeding Comments Not at meal time. OT ADL-Grooming General Evaluation Areas Needing Assistance Retrieving/Set-up of Grooming Items OT ADL-Oral Care General Eval Oral Care Ability Independent Comments Oral Care Comments Able to do while standing with FWW in front of her at the sink. OT ADL-Dressing General Eval Lower Body Dressing Ability Moderate Assistance Comments OT Dressing Comments Pt able to olvin/doff her socks while lying in bed by bringing her feet to her chest . Otherwsie pt would benefit from use of marketing researcher and socks aid to assist with her lower body dressing needs. OT ADL-Toileting Comments OT Toileting Comments Pt not having to go . OT ADL-Bathing Comments OT Bathing Comments Not performed. M5 OT- IP IADL's Start: 06/01/21 12:46 Freq: Status: Active Protocol: Document 06/01/21 12:47 [facility] (Rec: 06/01/21 13:03 [facility] [id number]) OT-Instrumental Activities of Daily Living Home Safety Awareness Ability to Problem Solve Emergency Able to Problem Solve Situations Home Safety Comments At this time best for pt to have assist for Adl and IADL needs as a bit groggy from pain medications. M6 OT- IP Functional Cognition Start: 06/01/21 12:46 Freq: Status: Active Protocol: Document 06/01/21 12:47 [facility] (Rec: 06/01/21 13:03 [facility] [id number]) Cognitive Factors Limiting Selfcare Function Cognitive Ability Level of Alertness Alert Patient Orientation Name,Age,Birthday,Month,Date, Year,Day of Week,Place, Situation Attention Span Ability Capable of Focused Attention, Capable of Sustained Attention Ability to Follow Commands Able to Follow One Step Commands Safety Awareness Decreased Ability to Apply Precautions,Underestimates Need for Assistance Cognitive Comments Cognitive Assessment Comments Pt needing cues to follow log rolling and to prevent from twisting. OT- Vision and Hearing OT- Hearing Assessment OT- Hearing Assessment WFL OT- Vision Assessment Visual Acuity Glasses All The Time M7 OT- IP Mobility and Balance Start: 06/01/21 12:46 Freq: Status: Active Protocol: Document 06/01/21 12:47 [facility] (Rec: 06/01/21 13:03 [facility] [id number]) OT- Bed Mobility Assessment Rolling Level of Assistance Standby Assistance,Bedrails Supine to Sit Supine to Sit Assist Contact Guard Assistance Sit to Supine Sit to Supine Assist Minimal Assistance Scooting Scooting to Edge of Bed Contact Guard Assistance OT-Transfer Assessment Sit to and From Stand Sit to and from Stand Contact Guard Assistance Transfers Transfer Ability Contact Guard Assistance Technique Transfer Destination Bed Transfer Technique Stand Step Pivot Devices Transfer Assistive Devices Gait Belt,Front Wheeled Walker Comments Mobility Comments Pt needing heavy use of bed rail for log rolling and if going home would benefit from getting a bed rail. Pt states has a high bed and uses a step at home to get into and out of the bed. Pt CGA to stand and move in the room with the FWW. OT- Balance Assessment Sitting Balance and Reactions Static Sitting Balance Ability Good Dynamic Sitting Balance Ability Fair Standing Balance and Reactions Static Standing Balance Ability Fair M8 OT- IP Objective Assessments Start: 12/14/21 12:46 Freq: Status: Active Protocol: Document 06/01/21 12:47 [facility] (Rec: 06/01/21 13:03 [facility] [id number]) OT Gross Range of Motion Upper Extremity Range of Motion ROM Impairments Limited due to her abdominal pain and sx. M9 OT- IP Assessment and Plan Start: 06/01/21 12:46 Freq: Status: Active Protocol: Document 06/01/21 12:47 [facility] (Rec: 06/01/21 13:03 [facility] [id number]) OT Summary Assessment and Plan Potential Rehabilitation Potential Good Analytic Complexity at Evaluation Low Summary OT Impairments Pain,Strength,Balance, Functional Cognition, Functional Mobility,Dressing, Toileting,Bathing,Toilet Transfers,Shower Transfers, Activity Tolerance Progress Towards Goals Progressing Toward Goals Assessment Summary Pt low complexity and now needing assist for Adl and mobility needs due to decreased activity tolerance and now having to use FWW for needs. Pt looking to go back to skilled rehab when medically stable. Pt's works and at this time pt is not independent to be able to assist with all her ADL and mobility needs. Pt to go to skilled rehab when medically stable. Goals Grooming Goal Independent Dressing Goal Independent Toileting Goal Independent Bathing Goal Independent Toilet Transfer Goal Independent Shower Transfer Goal Independent Patient/Caregiver Education Goal Demonstrate Energy Conservation and Pacing Days to Meet Goals 15 Frequency of Treatment Frequency Of Treatment Once a Day Treatment Plan OT Treatment Plan ADL Training,Functional Cognition Training,Functional Mobility,Patient/Family Education,Discharge Planning Other Treatment Recommendations and Next shower Treatment Focus Discharge Recommendations OT Discharge Recommendations SNF Rehab Transportation Needs at Discharge Private Vehicle,Wheelchair/ Cabulance
--- NOTE | 2021-06-01 10:42 | CM.DPC ---
DCP Cont: Discussed patient during team rounds. Patient now has diet of acute pancreatitis. She is currently on clear liquids, but not yet ready for discharge, possibly tomorrow. Confirmed with Janet at [facility] that she is their resident, and can return. Patient had already mentioned to provider going back to rehab. She may need a new COVID test upon return. P: DCP to continue to follow. Plan is for patient to return to [facility], possibly tomorrow. Have updated Janet at [facility]. Jo Almeida RN/Stock Clipper
--- NOTE | 2021-06-01 10:55 | PT.IIE ---
Current Diagnoses Acute pancreatitis without necrosis or infection, unspecified (05/28/21) Medical History (Last Reviewed 05/28/21 @ 13:50 by Samuel Epps MD) Generalized weakness Small bowel obstruction Physical Therapy Inpatient Evaluation/Re-Eval M1 PT/OT-IP Prior Functional Status Start: 06/01/21 12:59 Freq: NEEDED Status: Active Protocol: Document 06/01/21 10:55 AB (Rec: 06/01/21 13:12 AB [email or web address]) Medical Review Prior Functional Status Medical History Reviewed Yes Communication able to make needs known Mobility and Gait pt had h/o abdominal surgery ~ 2 weeks ago and was d/c to [facility]. prior to surgery, pt stated that she is independent with all mobilities and ambulation without AD Social History Household Members spouse Living Arrangements House Number of Floors (Floors) Two Floors Number of Stairs To Enter/Railing? has a chair lift to get to 2nd level of the house Home Environment Standard Height Toilet,Walk in Shower Home Equipment Front Wheel Walker,Four Wheel Walker,Quad Cane,Manual Wheelchair,Hand Held Shower Additional Social History Comment pt stated that spouse works until ~ 700pm and she usually is by herself at home but has somebody that she can call to assist if needed M2 PT-IP Current Condition Start: 06/01/21 12:59 Freq: NEEDED Status: Active Protocol: Document 06/01/21 10:55 AB (Rec: 06/01/21 13:12 AB [id number]) Physical Therapy Current Condition Current Condition Evaluation Date 06/01/21 Treatment Diagnosis pancreatitis; difficulty in walking Onset Date 05/28/21 M3 PT-IP Subjective Start: 06/01/21 12:59 Freq: NEEDED Status: Active Protocol: Document 06/01/21 10:55 AB (Rec: 06/01/21 13:12 AB [id number]) Subjective Physical Therapy Visit Type Type Initial Evaluation Visit Start Time 10:55 Visit Stop Time 11:30 Total Visit Minutes 35 Number of SECURITY TEAM LEAD Visits 0 Physical Therapy Visit Comments Patient Comments agreeable to do PT Therapy Pain Assessment Pain When Pain Assessed At Rest Pain Present Pain Present Pain Reported Location Abdomen Intensity 7 Scale Used Numeric (0 - 10) Pain Management Techniques Distraction,Modification of Treatment,Re-positioning, Timing of Activity with Medications M4 PT-IP Mobility and Gait Start: 06/01/21 12:59 Freq: NEEDED Status: Active Protocol: Document 06/01/21 10:55 AB (Rec: 06/01/21 13:12 AB [email or web address]) PT-Bed Mobility Assessment Rolling Type of Rolling Log Rolling Level of Assist Maximal Assistance Supine to Sit Supine to Sit Maximum Assistance,Bedrails Sit to Supine Sit to Supine Maximum Assistance,Bedrails PT-Transfer Assessment Sit to and From Stand Sit to and from Stand Minimal Assistance,1 Person Assistance,Use of Upper Extremities Equipment Transfer Assistive Device Gait Belt,Front Wheeled Walker Orthotic/Prosthetic Devices or Brace: No Transfers Transfer Destination Chair Transfer Technique Stand Step Pivot Transfer Ability Level of Assist Minimal Assistance,1 Person Assistance,Use of Upper Extremities Comments Mobility Comments pt supine in bed. agreed to do PT. pt is impulsive and gets anxious easily. cued for safety. educated on abdominal precautions and log roll bed mobility. Pt. does not recall any of her precautions. completed log roll supine<>sit x 3 reps max A and max cues. pt tends to push trunk backwards during pushing sideways to sit up and required max A be complete. completed sit to stand min A and ambulated in room using FWW ~ 30 ft min A and cues. pt sat on EOB. NAC came in with a chair for pt and pt agreed to stay up on chair. completed sit to stand min A and step transfer to chair using FWW min A. positioned pt on chair. call light and table placed within reach. Gait Assessment Gait Gait Assistance Required: Minimum Assistance Distance (Feet) 30 Able to Maintain Weight Bearing Status Yes During Gait Assistive Devices Assistive Device Gait Belt,Front Wheeled Walker Orthotic/Prosthetic Devices or Brace: No Gait Deviations General Gait Pattern Decreased Stride Length, Decreased Feet Clearance Factors Limiting Gait Function Factors Limiting Gait Function Decreased Activity Tolerance, Decreased Strength,Difficulty Following Directions,Limited Range of Motion,Pain,Poor Balance,Poor Safety Awareness PT-Balance Assessment Sitting Balance and Reactions Static Sitting Balance Ability Good Dynamic Sitting Balance Ability Good Standing Balance and Reactions Static Standing Balance Ability Fair Dynamic Standing Balance Ability Fair Device Used FWW M5 PT-IP Objective Assessments Start: 06/01/21 12:59 Freq: NEEDED Status: Active Protocol: Document 06/01/21 10:55 AB (Rec: 06/01/21 13:12 AB [email or web address]) Orientation Orientation/Cognition Level of Alertness Alert Orientation Name,Place,Situation Safety Awareness Decreased Safety Awareness Memory Description Short Term Impaired Gross Range of Motion Lower Extremity ROM Assessment Within Functional Limits Strength Lower Extremity Strength Hip 4-/5 Knee 4-/5 Sensation Assessment Sensation Gross Sensation WNL Muscle Tone Muscle Tone WNL Yes M6 PT-IP Treatment Start: 06/01/21 12:59 Freq: NEEDED Status: Active Protocol: Document 06/01/21 10:55 AB (Rec: 06/01/21 13:12 AB [email or web address]) Physical Therapy Treatment Education Education Provided Precautions,Safety M7 PT-IP Assessment and Plan Start: 06/01/21 12:59 Freq: NEEDED Status: Active Protocol: Document 06/01/21 10:55 AB (Rec: 06/01/21 13:12 AB [email or web address]) PT Summary Assessment and Plan Potential Rehabilitation Potential Good Status of Condition at Evaluation Stable Summary Impairments Pain,ROM,Strength,Balance, Coordination,Sensation,Tone, Cognition,Bed Mobility, Transfers,Gait,Activity Tolerance Assessment Summary pt requiring min A for transfers and ambulation but max A for bed mobility. pt requires cues to adhere to precautions and has decrease safety awareness. pt is usually by herself at home and needs to be more independent than current level to be safe. Pt will benefit from SNF rehab to improve overall strength and functional independence. Goals Bed Mobility Goal Independent Transfer Goal Independent,Front Wheeled Walker Gait Goal Independent,Front Wheel Walker Gait Distance 200 Days to Meet Goals 5 Frequency of Treatment Frequency Of Treatment Once a Day Treatment Plan Physical Therapy Treatment Plan Bed Mobility Training,Transfer Training,Gait Training, Therapeutic Exercise,Balance Retraining,Post Op Education, Discharge Planning,Hot or Cold Pack,Neuromuscular Re-ed, Coordination Retraining Precautions Abdominal Surgery Precautions Log Roll,Lifting Restrictions, Gait Belt above Incisional Area Recommendations To Nursing Amount of Assist Needed 1 Person Assist Discharge Recommendations PT Discharge Recommendations SNF Rehab Transportation Needs at Discharge Wheelchair/Cabulance
[2021-06-01] MEDS: OXYCODONE IR 5 MG TABLET PO ×2 (11:05→21:21)
[2021-06-01] MEDS: SODIUM CHLORIDE 0.9% 1,000 ML 84 ML IV (12:08)
[2021-06-01] MEDS: POLYVINYL ALCOHOL DROPS 1 DROPS EYE-BOTH (12:41)
--- NOTE | 2021-06-01 16:18 | P.PN_ITS ---
Subjective Subjective Date Patient Seen: 06/01/21 Interval history: The patient is a 70-year-old female admitted to the hospital for abdominal pain. Initially there was concern for acalculous cholecystitis. However HIDA scan was negative. The patient has an elevated lipase. She is currently being treated for acute pancreatitis. She reports continued abdominal pain, she also reports continued nausea. Despite that she would like to try to advance her diet. She has no other specific complaints Exam Vital Signs (past 8 hours): - 06/01/21 11:25 Temperature 97.0 F L Pulse Rate 72 Respiratory Rate 18 Blood Pressure 129/76 Pulse Oximetry 98 Oxygen Delivery Method Room Air Oxygen Flow Rate 0 Narrative Exam Narrative: Pleasant female lying in bed resting comfortably Resp Other: Lungs clear to auscultation Cardio Other: Cardiac exam: Regular rate and rhythm normal S1-S2 GI Other: Abdomen: Soft, tender in the midepigastric area, mild right upper quadrant tenderness, midline surgical incision healing nicely, no rebound tenderness, no board-like rigidity, no palpable mass Extrem Other: No edema Objective Labs Result Diagrams: 05/30/21 05:47 05/31/21 06:30 [facility] Medical History Generalized weakness Small bowel obstruction Social History household members: spouse Smoking Status: Never smoker alcohol intake: former Assessment & Plan Assessment & Plan narrative: Abdominal pain, pancreatitis, acute, -patient with complicated history with ulcerative colitis in the past -recent ex-lap for free air showed no etiology or evidence of perforation -lipase elevated consistent with acute pancreatitis -no evidence of gallstones, no drinking history, calcium and triglycerides normal -divalproex is commonly associated with pancreatitis, and can occur in delayed cases -hold divalproex -IV fluid repletion, and IV opiates for pain control -clear liquid diet -imaging showed dilated gallbladder with no evidence of stones, question of acalculous cholecystitis, she has no fever or leukocytosis -d/c antibiotics -CT shows free fluid in pelvis, etiology may be post-operative, less likely pancreas in origin -MRCP ordered to evaluate biliary system and showed patent ducts and dilated gallbladder, no biliary concerns -HIDA scan negative, no acalculous cholecystitis, patient to be treated for acute pancreatitis -will advance diet as tolerate 2. Anemia of chronic disease -trend daily -dietary consult -H&H 02/09, if it drops further we will consider transfusion -continue to monitor 3. Protein calorie malnutrition -dietary consult 4. Bipolar disorder -continue lamictal -hold divalproex 5. Hypothyroidism -continue synthroid 6. Hypertension -hold anti-hypertensives for now 7. Neck wound -from previous line -follow up gram stain and cultures -cultures growing Pseudomonas, will switch antibiotics to cover -Neck wound with associated bacterial infection Time Spent With Patient Critical Care time: I spent a total of [] minutes of critical care time on this patient's care today; this time is exclusive of procedural time.
[2021-06-01] MEDS: SIMETHICONE 80 MG TABLET PO (19:17)
[2021-06-01] MEDS: NYSTATIN POWDER 15GM 1 APPLIC TOP (19:18)
[2021-06-01] MEDS: ACETAMINOPHEN 325 MG TABLET 975 MG PO (21:21)
[2021-06-02] VITALS (12 sets, daily range): BP systolic 126–155; BP diastolic 70–86; PULSE 67–76; RESP 16–17; TEMP 36.6–37.2; O2SAT 95–100
[2021-06-02] MEDS: ONDANSETRON 4 MG/2 ML INJ IV ×5 (00:22→21:49)
[2021-06-02] MEDS: HYDROMORPHONE 0.5 MG INJ IV ×6 (00:22→21:49)
[2021-06-02 05:57] LABS: BUN Creatinine Ratio 6.5 (6-22); Blood Urea Nitrogen 5 mg/dL (7-17); Calcium 8.6 mg/dL (8.4-10.2); Carbon Dioxide 26 mmol/L (22-32); Chloride 109 mmol/L (98-107); Estimated Glomerular Filt Rate > 60.0 mL/min (>60); Glucose 97 mg/dL (80-110); HEMOLYSIS < 15 (0-50); Potassium 4.3 mmol/L (3.4-5.1); Sodium 137 mmol/L (137-145)
[2021-06-02 06:23] LABS: Lipase 407 U/L (23-300)
[2021-06-02] MEDS: LEVOTHYROXINE 75 MCG TABLET PO (06:28)
[2021-06-02] MEDS: PANTOPRAZOLE DR 40 MG TABLET PO (06:29)
[2021-06-02] MEDS: POLYVINYL ALCOHOL DROPS 1 DROPS EYE-BOTH (08:42)
[2021-06-02] MEDS: lamoTRIgine 100 MG TABLET 400 MG PO (08:44)
[2021-06-02] MEDS: PRENATAL VIT,CALC/IRON/FOLIC 1 TABLET 1 TAB PO (08:44)
[2021-06-02] MEDS: SODIUM CHLORIDE 0.9% FLUSH 10 ML IV ×2 (08:46→21:50)
[2021-06-02] MEDS: OXYCODONE IR 5 MG TABLET PO (08:46)
--- NOTE | 2021-06-02 08:57 | PM.PN.1 ---
Subjective Subjective Date Patient Seen: 06/02/21 Interval history: The patient is a 70-year-old female admitted to the hospital with acute abdominal pain. Patient was evaluated for possible acalculous cholecystitis. Her HIDA scan was negative. Lipase remains elevated. Patient currently treated for acute pancreatitis. She reports continued nausea and abdominal pain. Her pain appears to be worse at night. She was able to tolerate her meals yesterday. Exam Vital Signs (past 8 hours): - 06/02/21 04:00 06/02/21 04:57 Temperature 97.8 F Pulse Rate 67 Respiratory Rate 16 Blood Pressure 151/83 H Pulse Oximetry 95 95 Oxygen Delivery Method Room Air Oxygen Flow Rate 0 Narrative Exam Narrative: Pleasant female resting comfortably in no obvious distress Resp Other: Lungs clear to auscultation Cardio Other: Cardiac exam: Regular rate and rhythm normal S1-S2 with a 2/6 systolic ejection GI Other: Abdomen soft, mildly tender in the midepigastric area, mildly tender in the right upper quadrant. Midline surgical incision healing nicely no erythema exudate or drainage Extrem Other: No edema Objective Labs Result Diagrams: 05/30/21 05:47 06/02/21 05:00 Labs: Laboratory Results - last 24 hr 06/02/21 06/02/21 05:00 05:00 Sodium 137 Potassium 4.3 Chloride 109 H Carbon Dioxide 26 BUN 5 L Creatinine 0.77 Estimated GFR > 60.0 BUN/Creatinine Ratio 6.5 Glucose 97 Calcium 8.6 Lipase 407 H [facility] Medical History Generalized weakness Small bowel obstruction Social History household members: spouse Smoking Status: Never smoker alcohol intake: former Assessment & Plan Assessment & Plan narrative: Assessment & Plan narrative: Abdominal pain, pancreatitis, acute, -patient with complicated history with ulcerative colitis in the past -recent ex-lap for free air showed no etiology or evidence of perforation -lipase elevated consistent with acute pancreatitis -no evidence of gallstones, no drinking history, calcium and triglycerides normal -divalproex is commonly associated with pancreatitis, and can occur in delayed cases -hold divalproex -IV fluid repletion, and IV opiates for pain control -clear liquid diet -imaging showed dilated gallbladder with no evidence of stones, question of acalculous cholecystitis, she has no fever or leukocytosis -d/c antibiotics -CT shows free fluid in pelvis, etiology may be post-operative, less likely pancreas in origin -MRCP ordered to evaluate biliary system and showed patent ducts and dilated gallbladder, no biliary concerns -HIDA scan negative, no acalculous cholecystitis, patient to be treated for acute pancreatitis -will advance diet as tolerate -discontinue IV fluids at this time 2. Anemia of chronic disease -trend daily -dietary consult -H&H 02/09, if it drops further we will consider transfusion -continue to monitor -etiology of anemia unknown 3. Protein calorie malnutrition -dietary consult 4. Bipolar disorder -continue lamictal -hold divalproex 5. Hypothyroidism -continue synthroid 6. Hypertension -hold anti-hypertensives for now 7. Neck wound -from previous line -follow up gram stain and cultures -cultures growing Pseudomonas, will switch antibiotics to cover -Neck wound with associated bacterial infection Time Spent With Patient Critical Care time: I spent a total of [] minutes of critical care time on this patient's care today; this time is exclusive of procedural time.
--- NOTE | 2021-06-02 10:02 | OT.IP.TRT ---
Current Diagnoses Acute pancreatitis without necrosis or infection, unspecified (05/28/21) Occupational Therapy Treatment Note M2 OT-IP Current Condition Start: 06/01/21 12:46 Freq: Status: Active Protocol: Document 06/01/21 12:47 [facility] (Rec: 06/01/21 13:03 [facility] [id number]) Occupational Therapy Current Condition Current Condition Evaluation Date 06/01/21 Treatment Diagnosis Acute pancreatitis Diagnosis Onset Date 05/28/21 Post Operative Precautions Abdominal Surgery Precautions Log Roll,Lifting Restrictions, Gait Belt above Incisional Area M3 OT- IP Subjective and Pain Start: 06/01/21 12:46 Freq: Status: Active Protocol: Document 06/02/21 13:24 [facility] (Rec: 06/02/21 13:33 [facility] [id number]) OT- Subjective Occupational Therapy Visit Type Type Treatment Note Visit Start Time 09:07 Visit Stop Time 10:02 Total Visit Minutes 55 Occupational Therapy Visit Comments Patient Comments Pt wanting to shower. Patient/Caregiver Goals To go back to skilled rehab. OT Pain Assessment Pain When Pain Assessed At Rest Pain Present Pain Present Pain Reported Location Abdomen Intensity 7 Scale Used Numeric (0 - 10) M4 OT- IP ADL's Start: 06/01/21 12:46 Freq: Status: Active Protocol: Document 06/02/21 13:24 [facility] (Rec: 06/02/21 13:33 [facility] [id number]) OT ADL-Grooming General Evaluation Grooming Ability Standby Assistance Comments OT Grooming Comments Able to do while seated in the bed. OT ADL-Dressing General Eval Lower Body Dressing Ability Moderate Assistance Comments OT Dressing Comments Pt getting tired and needing assist to get clothing over her feet after her shower. OT ADL-Bathing Bathing Type Bathing Type Shower General Evaluation Bathing Ability Minimal Assistance,Moderate Assistance Areas Needing Assistance Wash/Dry Back,Wash/Dry Lower Extremities M6 OT- IP Functional Cognition Start: 06/01/21 12:46 Freq: Status: Active Protocol: Document 06/02/21 13:24 [facility] (Rec: 06/02/21 13:33 [facility] [id number]) Cognitive Factors Limiting Selfcare Function Cognitive Ability Level of Alertness Alert Patient Orientation Name,Age,Birthday,Month,Date, Year,Day of Week,Place, Situation Attention Span Ability Capable of Focused Attention, Capable of Sustained Attention Ability to Follow Commands Able to Follow One Step Commands Safety Awareness Decreased Ability to Apply Precautions,Underestimates Need for Assistance Cognitive Comments Cognitive Assessment Comments Pt still needing cues to log rolling and not to twist. Pt also needing cues to slow down as a bit impulsive at times. M7 OT- IP Mobility and Balance Start: 06/01/21 12:46 Freq: Status: Active Protocol: Document 06/02/21 13:24 [facility] (Rec: 06/02/21 13:33 [facility] [id number]) OT- Bed Mobility Assessment Rolling Level of Assistance Standby Assistance,Bedrails Supine to Sit Supine to Sit Assist Contact Guard Assistance Sit to Supine Sit to Supine Assist Minimal Assistance OT-Transfer Assessment Sit to and From Stand Sit to and from Stand Contact Guard Assistance Transfers Transfer Ability Standby Assistance,Contact Guard Assistance Technique Transfer Destination Bed,Shower Stall Transfer Technique Stand Step Pivot Devices Transfer Assistive Devices Gait Belt,Front Wheeled Walker Comments Mobility Comments Pt needing more assist when she tires. OT- Balance Assessment Sitting Balance and Reactions Static Sitting Balance Ability Good Dynamic Sitting Balance Ability Fair Standing Balance and Reactions Static Standing Balance Ability Fair M8 OT- IP Objective Assessments Start: 06/01/21 12:46 Freq: Status: Active Protocol: Document 06/01/21 12:47 [facility] (Rec: 06/01/21 13:03 [facility] [id number]) OT Gross Range of Motion Upper Extremity Range of Motion ROM Impairments Limited due to her abdominal pain and sx. M9 OT- IP Assessment and Plan Start: 06/01/21 12:46 Freq: Status: Active Protocol: Document 06/02/21 13:24 [facility] (Rec: 06/02/21 13:33 [facility] [id number]) OT Summary Assessment and Plan Potential Rehabilitation Potential Good Analytic Complexity at Evaluation Low Summary OT Impairments Pain,Strength,Balance, Functional Cognition, Functional Mobility,Dressing, Toileting,Bathing,Toilet Transfers,Shower Transfers, Activity Tolerance Progress Towards Goals Progressing Toward Goals Assessment Summary Pt able to tolerate a shower today. Pt still needing reminders to follow bed mobility needs. Pt looking to go back to skilled rehab when medically stable. Goals Grooming Goal Independent Dressing Goal Independent Toileting Goal Independent Bathing Goal Independent Toilet Transfer Goal Independent Shower Transfer Goal Independent Patient/Caregiver Education Goal Demonstrate Energy Conservation and Pacing Days to Meet Goals 14 Frequency of Treatment Frequency Of Treatment Once a Day Treatment Plan OT Treatment Plan ADL Training,Functional Cognition Training,Functional Mobility,Patient/Family Education,Discharge Planning Discharge Recommendations OT Discharge Recommendations SNF Rehab Transportation Needs at Discharge Private Vehicle,Wheelchair/ Cabulance
--- NOTE | 2021-06-02 11:21 | CM.DPC ---
DCP Cont: Per MD, pt continues to have pain and nausea from her pancreatitis. Pt has had multiple scans and tests and her lipase is starting to trend down and just awaiting pt to be more medically stable before d/c back to [facility]. Pt will need updated COVID swab when closer to d/c since unclear if pt will be ready for d/c by tomorrow. Per PT, still recommending SNF at d/c for ongoing strengthening. Plan: SW to follow for return to [facility] when stable and getting updated COVID swab closer to discharge. Karolina Sheehan MSW
--- NOTE | 2021-06-02 11:40 | PT.IPTN ---
Current Diagnoses Acute pancreatitis without necrosis or infection, unspecified (05/28/21) Physical Therapy Treatment Note M2 PT-IP Current Condition Start: 06/01/21 12:59 Freq: NEEDED Status: Active Protocol: Document 06/01/21 10:55 AB (Rec: 06/01/21 13:12 AB [id number]) Physical Therapy Current Condition Current Condition Evaluation Date 06/01/21 Treatment Diagnosis pancreatitis; difficulty in walking Onset Date 05/28/21 M3 PT-IP Subjective Start: 06/01/21 12:59 Freq: NEEDED Status: Active Protocol: Document 06/02/21 11:40 AB (Rec: 06/02/21 12:49 AB [id number]) Subjective Physical Therapy Visit Type Type Treatment Note Visit Start Time 11:40 Visit Stop Time 12:05 Total Visit Minutes 25 Number of MULTIPLE EFFECT EVAPORATOR OPERATOR Visits 0 Physical Therapy Visit Comments Patient Comments agreeable to do PT M4 PT-IP Mobility and Gait Start: 06/01/21 12:59 Freq: NEEDED Status: Active Protocol: Document 06/02/21 11:40 AB (Rec: 06/02/21 12:49 AB [email or web address]) PT-Bed Mobility Assessment Rolling Type of Rolling Log Rolling Level of Assist Standby Assistance Supine to Sit Supine to Sit Minimal Assistance PT-Transfer Assessment Sit to and From Stand Sit to and from Stand Contact Guard Assistance,1 Person Assistance,Use of Upper Extremities Equipment Transfer Assistive Device Gait Belt,Front Wheeled Walker Orthotic/Prosthetic Devices or Brace: No Transfers Transfer Destination Toilet Transfer Technique ambulated using FWW Transfer Ability Level of Assist Contact Guard Assistance, Minimal Assistance Comments Mobility Comments pt completed log roll supine to sit min A and max cues. requested to use the toilet. completed sit to stand CGA and ambulated to the toilet using FWW CGA to min A. pt is impulsive and has decrease safety awareness. pt completed sit to stand from the toilet CGA using grab bar. ambulated towards the sink CGA to min A using FWW and was able to maintain standing CGA while completing handwashing. pt ambulated in the hallway using FWW CGA to min A 125 ft. presents with decrease calvin, decrease step length and cues for safety. pt ambulated back to her room and agreed to sit up on hcair. positioned pt on chair. call light and table placed within reach. Gait Assessment Gait Gait Assistance Required: Contact Guard Assist,Minimum Assistance Distance (Feet) 125 Able to Maintain Weight Bearing Status Yes During Gait Assistive Devices Assistive Device Gait Belt,Front Wheeled Walker Orthotic/Prosthetic Devices or Brace: No Gait Deviations General Gait Pattern Decreased Stride Length, Decreased Feet Clearance Factors Limiting Gait Function Factors Limiting Gait Function Decreased Activity Tolerance, Decreased Strength,Difficulty Following Directions,Poor Balance,Poor Safety Awareness M5 PT-IP Objective Assessments Start: 06/01/21 12:59 Freq: NEEDED Status: Active Protocol: Document 06/01/21 10:55 AB (Rec: 06/01/21 13:12 AB [id number]) Orientation Orientation/Cognition Level of Alertness Alert Orientation Name,Place,Situation Safety Awareness Decreased Safety Awareness Memory Description Short Term Impaired Gross Range of Motion Lower Extremity ROM Assessment Within Functional Limits Strength Lower Extremity Strength Hip 4-/5 Knee 4-/5 Sensation Assessment Sensation Gross Sensation WNL Muscle Tone Muscle Tone WNL Yes M6 PT-IP Treatment Start: 06/01/21 12:59 Freq: NEEDED Status: Active Protocol: Document 06/02/21 11:40 AB (Rec: 06/02/21 12:49 AB [email or web address]) Physical Therapy Treatment Education Education Provided Safety M7 PT-IP Assessment and Plan Start: 06/01/21 12:59 Freq: NEEDED Status: Active Protocol: Document 06/02/21 11:40 AB (Rec: 06/02/21 12:49 AB [id number]) PT Summary Assessment and Plan Potential Rehabilitation Potential Fair Summary Impairments Pain,ROM,Strength,Balance, Coordination,Sensation,Tone, Cognition,Bed Mobility, Transfers,Gait,Activity Tolerance Assessment Summary pt requiring CGA to min A with mobility using FWW but continues to have decrease activity tolerance and decrease safety awareness affecting mobility independence. pt usually is alone at home since spouse works. pt needs to be more independent than current level and will benefit from SNF rehab. Goals Bed Mobility Goal Independent Transfer Goal Independent,Front Wheeled Walker Gait Goal Independent,Front Wheel Walker Gait Distance 200 Days to Meet Goals 5 Frequency of Treatment Frequency Of Treatment Once a Day Treatment Plan Physical Therapy Treatment Plan Bed Mobility Training,Transfer Training,Gait Training, Therapeutic Exercise,Balance Retraining,Post Op Education, Discharge Planning,Hot or Cold Pack,Neuromuscular Re-ed, Coordination Retraining Precautions Abdominal Surgery Precautions Log Roll,Lifting Restrictions, Gait Belt above Incisional Area Recommendations To Nursing Amount of Assist Needed 1 Person Assist Discharge Recommendations PT Discharge Recommendations SNF Rehab Transportation Needs at Discharge Wheelchair/Cabulance
--- NOTE | 2021-06-02 14:05 | PC.NURSE ---
Day shift: Pt with ABD pain and nausea approx 30 minutes after lunch today. Medicated per AUG.
[2021-06-03] VITALS (11 sets, daily range): BP systolic 128–145; BP diastolic 69–82; PULSE 71–83; RESP 16–18; TEMP 36.9–37.3; O2SAT 95–100
[2021-06-03] MEDS: LEVOTHYROXINE 75 MCG TABLET PO (07:04)
[2021-06-03] MEDS: PANTOPRAZOLE DR 40 MG TABLET PO (07:04)
[2021-06-03] MEDS: ONDANSETRON 4 MG/2 ML INJ IV ×2 (08:24→14:08)
[2021-06-03] MEDS: SODIUM CHLORIDE 0.9% FLUSH 10 ML IV ×3 (08:25→20:43)
[2021-06-03] MEDS: HYDROMORPHONE 2 MG TABLET PO (08:32)
[2021-06-03] MEDS: lamoTRIgine 100 MG TABLET 400 MG PO (08:32)
[2021-06-03] MEDS: SIMETHICONE 80 MG TABLET PO (08:32)
[2021-06-03] MEDS: HYDROMORPHONE 0.5 MG INJ IV ×2 (09:56→17:01)
--- NOTE | 2021-06-03 10:57 | PT-IP ANOTE ---
Attempted to see pt at 10:57, pt refused therapy due to reported pain, nausea, and dizziness. When offered PT in PM, pt refused again stating she will try tomorrow instead but does not want to at all today.
[2021-06-03] MEDS: DEXTROSE 5%-0.45NS W/KCL 20MEQ 1,000 ML 84 MEQ IV ×2 (11:23→21:09)
[2021-06-03] MEDS: METOCLOPRAMIDE 10 MG/2 ML INJ 5 MG IV (12:01)
--- NOTE | 2021-06-03 12:02 | P.PN_ITS ---
Subjective Subjective Date Patient Seen: 06/03/21 Interval history: The patient is a 70-year-old female admitted to the hospital for acute abdominal pain. She initially was felt to have possible acalculous cholecystitis. However workup to include HIDA scan which was negative. Patient had elevated lipase it was felt that her abdominal pain was attributed to acute pancreatitis. She continues to have significant nausea and abdominal pain. The patient did undergo exploratory laparotomy about a month ago for possible free air in the abdomen however there was no free air identified. At this point despite anti emetics, pain medication NPO status intermittently with some advancement of her diet she continues to be highly symptomatic. As she has been in the hospital 6 days there was concern about ongoing nutrition for her. Exam Vital Signs (past 8 hours): - 06/03/21 06:00 06/03/21 08:50 06/03/21 10:00 Temperature 99.2 F Pulse Rate 80 Respiratory Rate 18 Blood Pressure 128/69 Pulse Oximetry 96 100 100 Oxygen Delivery Method Room Air Oxygen Flow Rate 0 Narrative Exam Narrative: Frail ill-appearing female lying in bed who appears uncomfortable Resp Other: Lungs: clear to auscultation Cardio Other: CV: RRR nl Sl S2 2/6 DIANELYS GI Other: Abd: mildly tender in the mid and right upper quadrant, no rebournd tenderness, no palpable masses, no boardlike rigidity Extrem Other: no edema Objective Labs Result Diagrams: 05/30/21 05:47 06/02/21 05:00 [facility] Medical History Generalized weakness Small bowel obstruction Social History household members: spouse Smoking Status: Never smoker alcohol intake: former Assessment & Plan Assessment & Plan narrative: Abdominal pain, pancreatitis, acute, -patient with complicated history with ulcerative colitis in the past -recent ex-lap for free air showed no etiology or evidence of perforation -lipase elevated consistent with acute pancreatitis -no evidence of gallstones, no drinking history, calcium and triglycerides normal -divalproex is commonly associated with pancreatitis, and can occur in delayed cases -hold divalproex -IV fluid repletion, and IV opiates for pain control -NPO for now as she is still symptomatic -imaging showed dilated gallbladder with no evidence of stones, question of acalculous cholecystitis, she has no fever or leukocytosis -d/c antibiotics -CT shows free fluid in pelvis, etiology may be post-operative, less likely pancreas in origin -MRCP ordered to evaluate biliary system and showed patent ducts and dilated gallbladder, no biliary concerns -HIDA scan negative, no acalculous cholecystitis, patient to be treated for acute pancreatitis -she remains nauseated with abdominal pain -will check KUB/SMall bowel follow thru to r/o SBO -discussed with who will review and make further recommendations -NPO, resume IVFluids, continue Zofran, will add regaln 2. Anemia of chronic disease -trend daily -dietary consult -H&H 02/09, if it drops further we will consider transfusion -continue to monitor -etiology of anemia unknown -suspect it is partially dilutional given 6 days of IV hydration 3. Protein calorie malnutrition -dietary consult -consider tube feeds if she is unable to eat by tomorrow 4. Bipolar disorder -continue lamictal -hold divalproex 5. Hypothyroidism -continue synthroid 6. Hypertension -hold anti-hypertensives for now 7. Neck wound -from previous line -follow up gram stain and cultures -cultures growing Pseudomonas, will switch antibiotics to cover -Neck wound with associated bacterial infection from prior line Time Spent With Patient Critical Care time: I spent a total of [] minutes of critical care time on this patient's care toda y; this time is exclusive of procedural time.
--- NOTE | 2021-06-03 12:04 | OT.IPNOTE ---
Pt not feelng well, in pain, very nauseous and not wanting to do OT treatment today.
--- NOTE | 2021-06-03 12:36 | DI.RAD.S_ITS ---
PROCEDURE: FL SMALL BOWEL FOLLOW THROUGH INDICATIONS: r/o obstruction COMPARISON: None. FINDINGS: Small bowel: There is normal transit time of barium through the small bowel. Small bowel loops are mildly dilated with largest loop of small bowel dilated up to 3.9 centimeters. Mucosal folds are smooth and of normal thickness. Contrast material extends through the colon to the rectum. IMPRESSION: No evidence of high-grade small bowel obstruction with transit of oral contrast material through the small bowel into the colon. There are several mildly dilated loops of small bowel which could represent ileus or low-grade partial obstruction. Dictated by: Viv Quiles MD, PhD on 06/03/2021 at 17:08 Approved by: Viv Quiles MD, PhD on 06/03/2021 at 17:13
[2021-06-03 13:56] LABS: Lipase 477 U/L (23-300)
[2021-06-03 16:49] LABS: Add Manual Diff / Slide Review NO; Basophils Absolute Auto 100 /uL (0-100); Eosinophils Absolute Auto 0 /uL (0-450); Eosinophils Percent Auto 0.4 % (2-4); Hematocrit 27.8 % (36-46); Hemoglobin 9.5 g/dL (12.0-16.0); Lymphocytes Absolute Auto 1000 /uL (1100-4500); Lymphocytes Percent Auto 20.5 % (25-40); Mean Corpuscular HGB Conc 34.4 % (30-36); Mean Corpuscular Hemoglobin 33.5 PG (26-34); Mean Corpuscular Volume 97.4 fL (80-100); Monocytes Absolute Auto 500 /uL (0-900); Monocytes Percent Auto 10.5 % (3-14); Neutrophils Absolute Auto 3400 /uL (1500-7000); Neutrophils Percent Auto 67.6 % (50-75); Platelet Count 471 X10^3/uL (150-400); Red Blood Cell Count 2.85 X10^6/uL (4.0-5.2); Red Cell Distribution Width 16.4 % (11.6-14.8); White Blood Cell Count 5.1 X10^3/uL (4.5-11.0)
[2021-06-04] VITALS (12 sets, daily range): BP systolic 133–173; BP diastolic 64–80; PULSE 69–77; RESP 16–22; TEMP 36.3–37.4; O2SAT 95–100
[2021-06-04] MEDS: HYDROMORPHONE 0.5 MG INJ IV ×3 (01:57→20:05)
[2021-06-04] MEDS: ONDANSETRON 4 MG/2 ML INJ IV ×3 (01:57→20:05)
[2021-06-04] MEDS: LEVOTHYROXINE 75 MCG TABLET PO (06:34)
[2021-06-04] MEDS: PANTOPRAZOLE DR 40 MG TABLET PO (06:47)
[2021-06-04] MEDS: DEXTROSE 5%-0.45NS W/KCL 20MEQ 1,000 ML 84 MEQ IV (08:36)
[2021-06-04] MEDS: HYDROMORPHONE 2 MG TABLET PO (08:36)
[2021-06-04] MEDS: lamoTRIgine 100 MG TABLET 400 MG PO (08:36)
[2021-06-04] MEDS: PRENATAL VIT,CALC/IRON/FOLIC 1 TABLET 1 TAB PO (08:37)
[2021-06-04] MEDS: SODIUM CHLORIDE 0.9% FLUSH 10 ML IV ×2 (08:37→08:38)
[2021-06-04 09:00] LABS: Add Manual Diff / Slide Review NO; Basophils Absolute Auto 100 /uL (0-100); Basophils Percent Auto 1.1 % (0-2); Eosinophils Absolute Auto 100 /uL (0-450); Eosinophils Percent Auto 2.6 % (2-4); Hematocrit 24.9 % (36-46); Hemoglobin 8.4 g/dL (12.0-16.0); Lymphocytes Absolute Auto 1500 /uL (1100-4500); Lymphocytes Percent Auto 32.6 % (25-40); Mean Corpuscular HGB Conc 33.9 % (30-36); Mean Corpuscular Hemoglobin 32.7 PG (26-34); Mean Corpuscular Volume 96.6 fL (80-100); Monocytes Absolute Auto 500 /uL (0-900); Monocytes Percent Auto 10.3 % (3-14); Neutrophils Absolute Auto 2400 /uL (1500-7000); Neutrophils Percent Auto 53.4 % (50-75); Platelet Count 380 X10^3/uL (150-400); Red Blood Cell Count 2.58 X10^6/uL (4.0-5.2); Red Cell Distribution Width 16.2 % (11.6-14.8); White Blood Cell Count 4.5 X10^3/uL (4.5-11.0)
[2021-06-04 09:27] LABS: Alanine Aminotransferase 11 IU/L (<35); Albumin Globulin Ratio 1.1 (1.0-2.8); Alkaline Phosphatase 77 U/L (38-126); Aspartate Aminotransferase 31 IU/L (14-36); Bilirubin Total 0.3 mg/dL (0.2-1.3); Blood Urea Nitrogen 3 mg/dL (7-17); Calcium 8.6 mg/dL (8.4-10.2); Carbon Dioxide 29 mmol/L (22-32); Chloride 107 mmol/L (98-107); Estimated Glomerular Filt Rate > 60.0 mL/min (>60); Globulin 2.7 g/dL (1.7-4.1); Glucose 99 mg/dL (80-110); HEMOLYSIS < 15 (0-50); Potassium 3.9 mmol/L (3.4-5.1); Sodium 138 mmol/L (137-145); Total Protein 5.7 g/dL (6.3-8.2)
--- NOTE | 2021-06-04 10:40 | OT.IP.TRT ---
Current Diagnoses Acute pancreatitis without necrosis or infection, unspecified (05/28/21) Occupational Therapy Treatment Note M2 OT-IP Current Condition Start: 06/01/21 12:46 Freq: Status: Active Protocol: Document 06/01/21 12:47 [facility] (Rec: 06/01/21 13:03 [facility] [id number]) Occupational Therapy Current Condition Current Condition Evaluation Date 06/01/21 Treatment Diagnosis Acute pancreatitis Diagnosis Onset Date 05/28/21 Post Operative Precautions Abdominal Surgery Precautions Log Roll,Lifting Restrictions, Gait Belt above Incisional Area M3 OT- IP Subjective and Pain Start: 06/01/21 12:46 Freq: Status: Active Protocol: Document 06/04/21 12:28 [facility] (Rec: 06/04/21 12:33 [facility] [id number]) OT- Subjective Occupational Therapy Visit Type Type Treatment Note Visit Start Time 10:30 Visit Stop Time 10:40 Occupational Therapy Visit Comments Patient Comments Pt in the bathroom when OT came to see the pt. Patient/Caregiver Goals To be able to eat again. To go to skilled rehab. OT Pain Assessment Pain When Pain Assessed At Rest Pain Present Pain Present Pain Reported M4 OT- IP ADL's Start: 06/01/21 12:46 Freq: Status: Active Protocol: Document 06/04/21 12:28 [facility] (Rec: 06/04/21 12:33 [facility] [id number]) OT ADL-Grooming Comments OT Grooming Comments Pt able to wash her hands while standing at the sink. OT ADL-Dressing General Eval Lower Body Dressing Ability Maximum Assistance Areas Needing Assistance Underpants/Brief Comments OT Dressing Comments MAX A to help fasten her brief at this time. M6 OT- IP Functional Cognition Start: 06/01/21 12:46 Freq: Status: Active Protocol: Document 06/04/21 12:28 [facility] (Rec: 06/04/21 12:33 [facility] [id number]) Cognitive Factors Limiting Selfcare Function Cognitive Comments Cognitive Assessment Comments Pt still needing cues to follow log rolling. M7 OT- IP Mobility and Balance Start: 06/01/21 12:46 Freq: Status: Active Protocol: Document 06/04/21 12:28 [facility] (Rec: 06/04/21 12:33 [facility] [id number]) OT- Bed Mobility Assessment Sit to Supine Sit to Supine Assist Minimal Assistance OT-Transfer Assessment Sit to and From Stand Sit to and from Stand Contact Guard Assistance Transfers Transfer Ability Contact Guard Assistance Technique Transfer Destination Bed,Toilet Transfer Technique Stand Step Pivot Devices Transfer Assistive Devices Gait Belt,Front Wheeled Walker Comments Mobility Comments Pt CGA to stand and heavy use of grab bar to assist and Tanna to help get her legs back into bed. CGA with FWW to walk form the bathroom to bed. OT- Balance Assessment Sitting Balance and Reactions Static Sitting Balance Ability Good Dynamic Sitting Balance Ability Fair Standing Balance and Reactions Static Standing Balance Ability Fair M8 OT- IP Objective Assessments Start: 06/01/21 12:46 Freq: Status: Active Protocol: Document 06/01/21 12:47 [facility] (Rec: 06/01/21 13:03 [facility] [id number]) OT Gross Range of Motion Upper Extremity Range of Motion ROM Impairments Limited due to her abdominal pain and sx. M9 OT- IP Assessment and Plan Start: 06/01/21 12:46 Freq: Status: Active Protocol: Document 06/04/21 12:28 [facility] (Rec: 06/04/21 12:33 [facility] [id number]) OT Summary Assessment and Plan Potential Rehabilitation Potential Good Analytic Complexity at Evaluation Low Summary OT Impairments Pain,Strength,Balance, Functional Cognition, Functional Mobility,Dressing, Toileting,Bathing,Toilet Transfers,Shower Transfers, Activity Tolerance Progress Towards Goals Slow Progress due to Pain,Slow Progress due to Activity Tolerance Assessment Summary Pt just able to tolerate toilet transfer today and wanting to get back to bed as having too much pain. Pt to go back to skilled rehab when medically stable. Goals Grooming Goal Independent Dressing Goal Independent Toileting Goal Independent Bathing Goal Independent Toilet Transfer Goal Independent Shower Transfer Goal Independent Patient/Caregiver Education Goal Demonstrate Energy Conservation and Pacing Days to Meet Goals 20 Frequency of Treatment Frequency Of Treatment Once a Day Treatment Plan OT Treatment Plan ADL Training,Functional Cognition Training,Functional Mobility,Patient/Family Education,Discharge Planning Discharge Recommendations OT Discharge Recommendations SNF Rehab Transportation Needs at Discharge Private Vehicle,Wheelchair/ Cabulance
--- NOTE | 2021-06-04 11:28 | PT-IP ANOTE ---
Attempted to see pt at 11:28, pt refused therapy reporting pain and nausea. States she will try tomorrow.
[2021-06-04] MEDS: TRAMADOL 50 MG TABLET PO (12:27)
[2021-06-04] MEDS: METOCLOPRAMIDE HCL 5 MG TABLET PO ×2 (12:27→17:06)
[2021-06-04] MEDS: DEXAMETHASONE 10 MG/ML VIAL IV (12:27)
--- NOTE | 2021-06-04 15:24 | CM.DPC ---
DCP Continued: CM called Janet at [facility] to check on when they can accept the patient back based on when she will be medically ready. Janet stated they would be able to accept the patient back on monday or later if she is medically stable to return. During AM rounds hospitalist stated he was starting the patient on clear liquids and will see how she does. if she does well then she may be ready for DC on monday but that will depend on how she is eating. CM will follow closely to see when the patient may be medically ready for DC and keep [facility] at [facility] updated. Karen Johnson Rn Case Mangjanice
[2021-06-04] MEDS: GABAPENTIN 100 MG CAPSULE PO ×2 (15:42→20:05)
[2021-06-04] MEDS: methocarbamoL 500 MG TABLET PO ×2 (15:42→20:05)
--- NOTE | 2021-06-04 16:19 | DIET.PN1 ---
Dietary Progress Note Assessment: 70 y/o F admitted with abdominal pain with PMH of UC s/p subtotal colectomy with ileoanal pouch. Extensive GI hx with abdominal surgeries. Regalan has been added. Staff reports she cont to c/o abdominal discomfort with PO. H/o behavioral health. Shikha not open to participating in assessment today. After introduction as the dietitian she yelled, No! Nothing!. Not open at this time to discussing ONS preference. Pt with anemia. Pt receiving PNV with iron. Limited nutrition interventions given low Hct (24.9) and low Hgb (8.4). Ensure Max BID provides 9mg iron. Recorded weight is significantly less than weight two days ago. After discussing with RN, it is unclear if previous weights were accurate or if weight change is due to fluids. Wt: 53.4 kg on 06/02 and 47.9 kg today, indicating a 5.5kg or 10% loss in two days. wt changes also indicated from 05/29 to 06/01 of 1.8% loss in <1 week. 75% PO documented recently after inconsistent intake days prior. Diet has been adv to fulls today c good PO. Will send Ensure Max BID (low fat, high protein 30g each) to support nutrient needs. If she does not tolerate/like this ONS, we can try a protein shake. Ht: 154.94 cm Wt: 47.9 kg BMI: 24.1 Last BM: 06/03/21 (06/03/21 19:00) MNA: 13 Sean Score: 19 Diet: 06/04/21 Lunch Full Liquid Diet Diet Modifications: Nutrition Percent Meal Consumed 75% 06/04/21 11:45 Percent Meal Consumed 75% 06/03/21 09:00 Percent Meal Consumed 0% 06/02/21 17:00 Labs: RBC 2.58 X10^6/uL (4.0-5.2) L 06/04/21 08:45 Hgb 8.4 g/dL (12.0-16.0) L 06/04/21 08:45 Hct 24.9 % (36-46) L 06/04/21 08:45 Creatinine 0.60 mg/dL (0.52-1.04) 06/04/21 08:45 Lactate 1.5 mmol/L (0.7-2.1) 05/28/21 00:45 Nutrition Diagnosis: Acute on chronic protein calorie malnutrition r/t loss of appetite with ab pain and extensive GI hx aeb <75% nutrient needs met in the last 5-7 days, 1-2% weight loss in <1week, and BMI low for age. Interventions: Ensure Max BID EER: [id number] kcals (25-30 kcal/kg) 72-96g PRO (per malnutrition 1.5-2 g/kg) Monitoring/Evaluations: ONS tolerance, weight, PO, diet adv. RDN follow-up in 3-4 days. Electronically Signed by: Wilma Chaudhry 06/04/21 16:19 Clinical Dietitian [address] [id number]
--- NOTE | 2021-06-04 16:31 | P.PN_ITS ---
Subjective Subjective Date Patient Seen: 06/04/21 Interval history: TODAY PATIENT CONTINUED TO REPORT SIGNIFICANT ABDOMINAL PAIN SHE DENIES ANY CHEST PAIN REPORTED SOME NAUSEA. NO SIGNIFICANT VOMITING. NO HEADACHES OR MIGRAINE. NO CHEST PRESSURE NO SIGNIFICANT DIARRHEA. SPOKE TO NURSING IN REGARD TO THE CASE Exam Vital Signs (past 8 hours): - 06/04/21 09:00 06/04/21 10:11 06/04/21 14:45 Temperature 98.9 F Pulse Rate 77 Respiratory Rate 18 Blood Pressure 135/73 Pulse Oximetry 99 100 100 Oxygen Delivery Method Room Air Oxygen Flow Rate 0 Narrative Exam Narrative: NO ACUTE DISTRESS. APPEARS MUCH OLDER THAN STATED AGE VITAL SIGNS STABLE HEAD ATRAUMATIC NORMOCEPHALIC NECK : SUPPLE WITHOUT ADENOPATHY NO CAROTID BRUITS EYE: EOMI, PERRLA, NORMAL CONJUNCTIVA; NO JAUNDICE CHEST: REGULAR RATE. NO RUBS. PMI IS NON DISPLACED. NO MURMURS; NORMAL S1- S2 PULMONARY: DECREASED BS OVER THE BASES. MILD BIBASILAR CRACKLES NOTED; NO INCREASED DULLNESS TO PERCUSSION ABDOMEN: SOFT. NONTENDER. NONDISTENDED. BOWEL SOUNDS ARE PRESENT IN ALL 4 QUADRANTS. NO MASS. EXTREMITIES: NO EDEMA.. NO CYANOSIS CLUBBING NOTED. NEURO: CRANIAL NERVES 2-12 GROSSLY INTACT. NO FOCAL NEUROLOGICAL DEFICIT NOTED. MSK: NORMAL RANGE OF MOTION FOR AGE. NO JOINT EFFUSION. SKIN: NORMAL FOR ETHNICITY; NO ECCHYMOSIS. NO LESION. GOOD TURGOR.; NO RASHES : NORMAL EXTERNAL GENITALIA. PSYCH : APPROPRIATE MOOD AND AFFECT. ALERT AWAKE ORIENTED X3 Objective Labs Result Diagrams: 06/04/21 08:45 06/04/21 08:45 Labs: Laboratory Results - last 24 hr 06/03/21 06/04/21 06/04/21 16:37 08:45 08:45 WBC 5.1 4.5 RBC 2.85 L 2.58 L Hgb 9.5 L 8.4 L Hct 27.8 L 24.9 L MCV 97.4 96.6 MCH 33.5 32.7 MCHC 34.4 33.9 RDW 16.4 H 16.2 H Plt Count 471 H 380 Neut % (Auto) 67.6 53.4 Lymph % (Auto) 20.5 L 32.6 Callahan % (Auto) 10.5 10.3 Eos % (Auto) 0.4 L 2.6 Baso % (Auto) 1.0 1.1 Neut # (Auto) 3400 2400 Lymph # (Auto) 1000 L 1500 Callahan # (Auto) 500 500 Eos # (Auto) 0 100 Baso # (Auto) 100 100 Sodium 138 Potassium 3.9 Chloride 107 Carbon Dioxide 29 BUN 3 L Creatinine 0.60 Estimated GFR > 60.0 BUN/Creatinine Ratio 5.0 L Glucose 99 Calcium 8.6 Total Bilirubin 0.3 AST 31 ALT 11 Alkaline Phosphatase 77 Total Protein 5.7 L Albumin 3.0 L Globulin 2.7 Albumin/Globulin Ratio 1.1 [facility] Medical History Generalized weakness Small bowel obstruction Social History household members: spouse Smoking Status: Never smoker alcohol intake: former Assessment & Plan Assessment & Plan narrative: PROBLEM LIST ACUTE PANCREATITIS POSSIBLE OPIOID SEEKING BEHAVIOR POSSIBLE OPIOID DEPENDENCY ANEMIA CHRONIC DISEASE. MILD PROTEIN DEFICIENCY MALNUTRITION BIPOLAR DISORDER PER HISTORY HYPERTENSION PER HISTORY HYPOTHYROIDISM PER HISTORY PLAN PATIENT CONTINUED TO REPORT SIGNIFICANT ABDOMINAL PAIN HOWEVER SUSPECT MIGHT NOT BE DUE TO INTRA-ABDOMINAL PROCESSES SHE APPEARS TO BE OPIOID SEEKING OPIATE DEPENDENCE COULD BE A POSSIBILITY AT THIS TIME WILL CONSIDER OTHER WAYS OF CONTROLLING HER PAIN COULD ALSO CONSIDER LONG-ACTING OPIOIDS STARTED ON NAUSEA MEDICATIONS WILL ALSO START ON MIRALAX B.I.D. CONTINUE TO MOBILIZE PATIENT TOLERATED FOLLOW LAB CLOSELY ADDITIONAL MANAGEMENT PER CLINICAL COURSE DISCHARGE IN NEXT 24-48 HOURS IF CLINICALLY STABLE Time Spent With Patient Critical Care time: I spent a total of [] minutes of critical care time on this patient's care today; this time is exclusive of procedural time.
[2021-06-04] MEDS: SUCRALFATE 1 GM TABLET PO ×2 (17:06→20:05)
[2021-06-05] VITALS (16 sets, daily range): BP systolic 127–153; BP diastolic 65–90; PULSE 71–88; RESP 16–18; TEMP 35.9–36.9; O2SAT 96–100
[2021-06-05] MEDS: HYDROMORPHONE 2 MG TABLET PO ×2 (00:55→05:08)
[2021-06-05] MEDS: ONDANSETRON 4 MG/2 ML INJ IV ×4 (00:58→20:46)
[2021-06-05] MEDS: LEVOTHYROXINE 75 MCG TABLET PO (05:08)
[2021-06-05 05:41] LABS: Add Manual Diff / Slide Review NO; Basophils Absolute Auto 0 /uL (0-100); Basophils Percent Auto 0.4 % (0-2); Eosinophils Absolute Auto 0 /uL (0-450); Eosinophils Percent Auto 0.3 % (2-4); Hematocrit 23.6 % (36-46); Hemoglobin 7.9 g/dL (12.0-16.0); Lymphocytes Absolute Auto 1700 /uL (1100-4500); Lymphocytes Percent Auto 30.9 % (25-40); Mean Corpuscular HGB Conc 33.4 % (30-36); Mean Corpuscular Hemoglobin 32.6 PG (26-34); Mean Corpuscular Volume 97.6 fL (80-100); Monocytes Absolute Auto 500 /uL (0-900); Monocytes Percent Auto 8.9 % (3-14); Neutrophils Absolute Auto 3400 /uL (1500-7000); Neutrophils Percent Auto 59.5 % (50-75); Platelet Count 332 X10^3/uL (150-400); Red Blood Cell Count 2.42 X10^6/uL (4.0-5.2); Red Cell Distribution Width 16.1 % (11.6-14.8); White Blood Cell Count 5.7 X10^3/uL (4.5-11.0)
[2021-06-05 05:52] LABS: Alanine Aminotransferase 11 IU/L (<35); Albumin 2.9 g/dL (3.5-5.0); Alkaline Phosphatase 65 U/L (38-126); Aspartate Aminotransferase 20 IU/L (14-36); BUN Creatinine Ratio 9.8 (6-22); Bilirubin Total 0.3 mg/dL (0.2-1.3); Blood Urea Nitrogen 6 mg/dL (7-17); Calcium 8.6 mg/dL (8.4-10.2); Carbon Dioxide 25 mmol/L (22-32); Chloride 106 mmol/L (98-107); Estimated Glomerular Filt Rate > 60.0 mL/min (>60); Globulin 2.9 g/dL (1.7-4.1); Glucose 106 mg/dL (80-110); HEMOLYSIS < 15 (0-50); Phosphorous 2.4 mg/dL (2.8-4.1); Potassium 4.1 mmol/L (3.4-5.1); Sodium 133 mmol/L (137-145); Total Protein 5.8 g/dL (6.3-8.2)
[2021-06-05] MEDS: METOCLOPRAMIDE 10 MG/2 ML INJ 5 MG IV (08:47)
[2021-06-05] MEDS: SUCRALFATE 1 GM TABLET PO ×3 (08:50→20:38)
[2021-06-05] MEDS: DEXTROSE 5%-0.45NS W/KCL 20MEQ 1,000 ML 84 MEQ IV ×2 (08:51→20:41)
[2021-06-05] MEDS: methocarbamoL 500 MG TABLET PO ×3 (08:52→20:39)
[2021-06-05] MEDS: PRENATAL VIT,CALC/IRON/FOLIC 1 TABLET 1 TAB PO (08:52)
[2021-06-05] MEDS: lamoTRIgine 100 MG TABLET 400 MG PO (08:52)
[2021-06-05] MEDS: polyethylene glycoL 3350 17 GM POWD.PACK PO ×2 (08:52→21:03)
[2021-06-05] MEDS: FAMOTIDINE 20 MG TABLET PO (08:52)
[2021-06-05] MEDS: dexAMETHasone 4 MG TABLET PO (08:52)
[2021-06-05] MEDS: GABAPENTIN 100 MG CAPSULE PO (08:52)
[2021-06-05] MEDS: SODIUM CHLORIDE 0.9% FLUSH 10 ML IV ×2 (08:53→21:04)
[2021-06-05] MEDS: METOCLOPRAMIDE HCL 5 MG TABLET PO (12:03)
[2021-06-05] MEDS: HYDROMORPHONE 0.5 MG INJ IV (12:03)
[2021-06-05] MEDS: SODIUM,POTASSIUM PHOSPHATES PACKET 2 EACH PO (12:04)
--- NOTE | 2021-06-05 13:35 | PT-IP ANOTE ---
Pt refused therapy for the third time reporting high level of pain and nausea.
[2021-06-05] MEDS: GABAPENTIN 100 MG CAPSULE 200 MG PO ×2 (15:42→20:38)
--- NOTE | 2021-06-05 16:02 | P.PN_ITS ---
Subjective Subjective Interval history: PATIENT CONTINUED TO REPORT PAIN TO THE ABDOMINAL AREA DESPITE A BENIGN EXAM REQUESTING DILAUDID TO HELP WITH THE PAIN SOME NAUSEA ALSO REPORTED NO CHEST PAIN NO DIARRHEA NO INCREASING DYSPNEA ON EXERTION Exam Vital Signs (past 8 hours): - 06/05/21 09:35 06/05/21 10:00 06/05/21 10:22 Temperature Pulse Rate 88 Respiratory Rate 18 Blood Pressure 151/90 H Pulse Oximetry 100 98 98 06/05/21 12:05 06/05/21 13:01 06/05/21 15:48 Temperature 98.1 F Pulse Rate 81 Respiratory Rate 17 Blood Pressure 131/76 Pulse Oximetry 98 98 98 Oxygen Delivery Method Room Air Oxygen Flow Rate 0 Narrative Exam Narrative: NO ACUTE DISTRESS.? APPEARS MUCH OLDER THAN STATED AGE. THIN VITAL SIGNS STABLE HEAD ATRAUMATIC NORMOCEPHALIC NECK : SUPPLE WITHOUT ADENOPATHY NO CAROTID BRUITS EYE:? EOMI, PERRLA, NORMAL CONJUNCTIVA; NO JAUNDICE CHEST:? REGULAR RATE.? ? NO RUBS.? PMI IS NON DISPLACED.? NO MURMURS; NORMAL S1- S2 PULMONARY:? DECREASED BS OVER THE BASES.? MILD BIBASILAR CRACKLES NOTED; NO INCREASED DULLNESS TO PERCUSSION ABDOMEN:? SOFT.? NONTENDER.? NONDISTENDED.? BOWEL SOUNDS ARE PRESENT IN ALL 4 QUADRANTS.? NO MASS. EXTREMITIES: NO EDEMA..? NO CYANOSIS CLUBBING NOTED. NEURO:? CRANIAL NERVES 2-12 GROSSLY INTACT. NO FOCAL NEUROLOGICAL DEFICIT NOTED. MSK:? NORMAL RANGE OF MOTION FOR AGE.? NO JOINT EFFUSION. POOR MUSCULATURE SKIN:? NORMAL FOR ETHNICITY; NO ECCHYMOSIS.? NO LESION. .; NO RASHES :? NORMAL EXTERNAL GENITALIA. PSYCH :? APPROPRIATE MOOD AND AFFECT.? ALERT AWAKE ORIENTED X3 Objective Labs Result Diagrams: 06/05/21 05:15 06/05/21 05:15 Labs: Laboratory Results - last 24 hr 06/05/21 06/05/21 05:15 05:15 WBC 5.7 RBC 2.42 L Hgb 7.9 L Hct 23.6 L MCV 97.6 MCH 32.6 MCHC 33.4 RDW 16.1 H Plt Count 332 Neut % (Auto) 59.5 Lymph % (Auto) 30.9 [place] % (Auto) 8.9 Eos % (Auto) 0.3 L Baso % (Auto) 0.4 Neut # (Auto) 3400 Lymph # (Auto) 1700 [place] # (Auto) 500 Eos # (Auto) 0 Baso # (Auto) 0 Sodium 133 L Potassium 4.1 Chloride 106 Carbon Dioxide 25 BUN 6 L Creatinine 0.61 Estimated GFR > 60.0 BUN/Creatinine Ratio 9.8 Glucose 106 Calcium 8.6 Phosphorus 2.4 L Total Bilirubin 0.3 AST 20 ALT 11 Alkaline Phosphatase 65 Total Protein 5.8 L Albumin 2.9 L Globulin 2.9 Albumin/Globulin Ratio 1.0 [facility] Medical History Generalized weakness Small bowel obstruction Social History household members: spouse Smoking Status: Never smoker alcohol intake: former Assessment & Plan Assessment & Plan narrative: PROBLEM LIST ACUTE PANCREATITIS. WITH ALL POSSIBLE OPIOID SEEKING BEHAVIOR. COUNSELING GIVEN POSSIBLE OPIOID DEPENDENCY. COUNSELING GIVEN ANEMIA CHRONIC DISEASE.. STABLE HEMOGLOBIN MILD PROTEIN DEFICIENCY MALNUTRITION. ENCOURAGE ORAL INTAKE BIPOLAR DISORDER PER HISTORY HYPERTENSION PER HISTORY ? HYPOTHYROIDISM PER HISTORY ? PLAN 06/05 CONTINUE CURRENT MANAGEMENT FOR NOW NO INDICATION TO ADDRESS MANAGEMENT OR FURTHER WORKUP AT THIS TIME SPOKE TO CASE MANAGEMENT IN REGARD TO DISCHARGE PLANNING LIKELY DISCHARGE IN NEXT 24-48 HOURS BACK TO CARE HOME FACILITY PATIENT IS AGREEABLE REPEAT LABS IN THE MORNING CONTINUE PHYSICAL THERAPY PREVIOUSLY ORDERED CONTINUE MAINTAIN STRICT FALL AND ASPIRATION PRECAUTIONS NURSING TO MONITOR SKIN CLOSELY FOR ANY SIGN OF BREAKDOWN ADDITIONAL MANAGEMENT PER CLINICAL COURSE 06/04 PATIENT CONTINUED TO REPORT SIGNIFICANT ABDOMINAL PAIN HOWEVER SUSPECT MIGHT NOT BE DUE TO INTRA-ABDOMINAL PROCESSES SHE APPEARS TO BE OPIOID SEEKING OPIATE DEPENDENCE COULD BE A POSSIBILITY AT THIS TIME WILL CONSIDER OTHER WAYS OF CONTROLLING HER PAIN COULD ALSO CONSIDER LONG-ACTING OPIOIDS STARTED ON NAUSEA MEDICATIONS WILL ALSO START ON MIRALAX B.I.D. CONTINUE TO MOBILIZE PATIENT TOLERATED FOLLOW LAB CLOSELY ADDITIONAL MANAGEMENT PER CLINICAL COURSE DISCHARGE IN NEXT 24-48 HOURS IF CLINICALLY STABLE Time Spent With Patient Critical Care time: I spent a total of [] minutes of critical care time on this patient's care today; this time is exclusive of procedural time.
[2021-06-05] MEDS: TRAZODONE 50 MG TABLET PO (20:38)
[2021-06-05] MEDS: MELATONIN 3 MG TABLET 6 MG PO (20:38)
[2021-06-05] MEDS: TRAMADOL 50 MG TABLET PO (20:39)
[2021-06-05] MEDS: ACETAMINOPHEN 325 MG TABLET 975 MG PO (20:40)
[2021-06-06 02:00] VITALS: O2SAT 98
[2021-06-06] MEDS: HYDROMORPHONE 0.5 MG INJ IV (02:01)
[2021-06-06] MEDS: ONDANSETRON 4 MG/2 ML INJ IV (02:01)
[2021-06-06 02:45] VITALS: BP 140/77; PULSE 67; RESP 18; TEMP 37.1; O2SAT 98
[2021-06-06 06:00] VITALS: O2SAT 97
[2021-06-06] MEDS: LEVOTHYROXINE 75 MCG TABLET PO (06:56)
[2021-06-06] MEDS: ACETAMINOPHEN 325 MG TABLET 975 MG PO (06:56)
[2021-06-06 07:10] LABS: Alanine Aminotransferase 12 IU/L (<35); Alkaline Phosphatase 72 U/L (38-126); Aspartate Aminotransferase 22 IU/L (14-36); BUN Creatinine Ratio 9.7 (6-22); Bilirubin Total 0.2 mg/dL (0.2-1.3); Blood Urea Nitrogen 6 mg/dL (7-17); Carbon Dioxide 27 mmol/L (22-32); Chloride 107 mmol/L (98-107); Estimated Glomerular Filt Rate > 60.0 mL/min (>60); Globulin 2.9 g/dL (1.7-4.1); Glucose 97 mg/dL (80-110); HEMOLYSIS < 15 (0-50); Phosphorous 3.2 mg/dL (2.8-4.1); Potassium 4.5 mmol/L (3.4-5.1); Sodium 135 mmol/L (137-145); Total Protein 5.9 g/dL (6.3-8.2)
[2021-06-06 07:18] LABS: Add Manual Diff / Slide Review NO; Basophils Absolute Auto 0 /uL (0-100); Basophils Percent Auto 0.4 % (0-2); Eosinophils Absolute Auto 0 /uL (0-450); Eosinophils Percent Auto 0.6 % (2-4); Hematocrit 25.2 % (36-46); Hemoglobin 8.5 g/dL (12.0-16.0); Lymphocytes Absolute Auto 2100 /uL (1100-4500); Mean Corpuscular HGB Conc 33.6 % (30-36); Mean Corpuscular Hemoglobin 32.9 PG (26-34); Mean Corpuscular Volume 97.7 fL (80-100); Monocytes Absolute Auto 600 /uL (0-900); Monocytes Percent Auto 10.5 % (3-14); Neutrophils Absolute Auto 3400 /uL (1500-7000); Neutrophils Percent Auto 54.5 % (50-75); Platelet Count 309 X10^3/uL (150-400); Red Blood Cell Count 2.58 X10^6/uL (4.0-5.2); Red Cell Distribution Width 16.5 % (11.6-14.8); White Blood Cell Count 6.2 X10^3/uL (4.5-11.0)
[2021-06-06 07:45] VITALS: BP 147/62; PULSE 68; RESP 16; TEMP 36.4; O2SAT 100
[2021-06-06] MEDS: GABAPENTIN 100 MG CAPSULE 200 MG PO (08:40)
[2021-06-06] MEDS: lamoTRIgine 100 MG TABLET 400 MG PO (08:40)
[2021-06-06] MEDS: METOCLOPRAMIDE HCL 5 MG TABLET PO ×2 (08:40→12:24)
[2021-06-06] MEDS: dexAMETHasone 4 MG TABLET PO (08:40)
[2021-06-06] MEDS: FAMOTIDINE 20 MG TABLET PO (08:40)
[2021-06-06] MEDS: SUCRALFATE 1 GM TABLET PO ×2 (08:40→12:24)
[2021-06-06] MEDS: TRAMADOL 50 MG TABLET PO (08:41)
[2021-06-06] MEDS: SODIUM CHLORIDE 0.9% FLUSH 10 ML IV (08:41)
[2021-06-06] MEDS: PRENATAL VIT,CALC/IRON/FOLIC 1 TABLET 1 TAB PO (08:41)
[2021-06-06] MEDS: DEXTROSE 5%-0.45NS W/KCL 20MEQ 1,000 ML 84 MEQ IV (08:42)
[2021-06-06 10:00] VITALS: O2SAT 98
[2021-06-06] MEDS: methocarbamoL 500 MG TABLET PO (10:07)
--- NOTE | 2021-06-06 10:26 | P.DS_ITS ---
History of Present Illness History of Present Illness Date Patient Seen: 06/06/21 Chief complaint: Abd cramping Narrative: History of Present Illness History of Present Illness Date Patient Seen:?05/28/21 Time Patient Seen:?10:00 Narrative: Ms. Watkins is a 70W with PMH of ulcerative colitis s/p subtotal colectomy with ileoanal pouch, Ellie fundoplication, small bowel fistula, multiple surgeries for adhesive disease, recent exlap last month for free air with no source found who presents to the hospital with abdominal pain. She states she has been in rehab since Monday. Yesterday she had sudden onset of abdominal cramping and nausea. She is passing gas, she has had a bowel movement that is thin. No blood, no vomit. No fevers/chills. She has had an episode of pancreatitis in the past and never found out what the cause was. In the ED workup was done, vitals were unremarkable. Labs notable for WBC 7.7, creatinine 0.93, lactate 1.5. Bilirubin 0.6, ast/alt 42/15. Albumin 3.0. Lipase 1495.? Ct of her abdomen showed fluid, and possible minimal peritoneal enhancement in the right hemipelvis, gallbladder showed mild thickening of the wall and fluid surrounding the gallbladder. Pancreas appeared unremarkable. Abdominal ultrasound showed gallbladder wall thickening with pericholecystic fluid. She was given IV fluid and pain medications and admited for further treatment. Family history: Brother with Diabetes, [place] Discharge Providers Provider Date of admission: 05/28/21 07:14 Discharge Date: 06/06/21 Consults: 05/28/21 06:50 Consult to General Surgery Routine Comment: Consulting Provider: Shobha Camargo Reason for consultation: acute pancreatitis Has provider been notified: Yes 05/28/21 07:01 Consult to General Surgery Stat Comment: Consulting Provider: Shobha Camargo Reason for consultation: Peritonitis Has provider been notified: Yes 05/28/21 12:31 Consult to Dietitian, Adult Routine Comment: Reason For Exam: malnutrition, chronic GI issues. protein malnutrit 05/31/21 16:51 Consult to Occupational Therapy Evaluate & Treat Comment: Physician Instructions: Evaluate and treat Consult to Physical Therapy Evaluate & Treat Comment: Physician Instructions: Evaluate and Treat Discharge provider: Jey Nuñez, Summary Hospital Course Discharge Diagnosis: ACUTE PANCREATITIS.? RESOLVED POSSIBLE OPIOID SEEKING BEHAVIOR.? COUNSELING GIVEN POSSIBLE OPIOID DEPENDENCY.? COUNSELING GIVEN ANEMIA CHRONIC DISEASE..? STABLE HEMOGLOBIN MILD PROTEIN DEFICIENCY MALNUTRITION.? ENCOURAGE ORAL INTAKE BIPOLAR DISORDER PER HISTORY HYPERTENSION PER HISTORY ? HYPOTHYROIDISM PER HISTORY Hospital Course: THIS IS A 70-YEAR-OLD FEMALE WHO HAD A LONG STAY IN THE HOSPITAL DUE TO ABDOMINAL PAIN ACUTE PANCREATITIS WAS SUSPECTED IN DIAGNOSE ADMISSION. THIS HAS RESOLVED AT THIS TIME. PATIENT HAS A COMPLICATED MEDICAL HISTORY WHICH INCLUDE MULTIPLE SURGICAL INTERVENTION INTRA-ABDOMINALLY SHE HAS A HISTORY OF ULCERATIVE COLITIS WITH HISTORY OF PRIOR HEMICOLECTOMY. MULTIPLE PRIOR SURGERY ALSO FOR ADHESION LYSIS REPORTED. IN ANY CASE, PATIENT HAS AN EXTENSIVE WORKUP WITHOUT SIGNIFICANT FINDINGS IN [facility]. AT THIS TIME HER MAIN COMPLAINT IS ABDOMINAL PAIN FOR WHICH SHE IS REQUESTING MEDICATIONS INCLUDING DILAUDID. CLINICALLY SHE DOES NOT HAVE AN ACUTE ABDOMEN. NO SIGNIFICANT FINDINGS ON ABDOMINAL EXAM. SHE WILL BE DISCHARGED ON GABAPENTIN, TRAMADOL AND A SHORT COURSE OF STEROID WELL A MUSCLE RELAXER TO HELP FOR PAIN/DISCOMFORT. THE NEEDED OXYCODONE ALSO BE ORDERED. OXYCODONE ONLY FOR INTRACTABLE PAIN. AT THIS TIME SHE APPEARS TO BE STABLE CLINICALLY. AND WILL BE DISCHARGED TO PRISON FACILITY. ADDITIONAL MANAGEMENT WILL DEFER TO OUTPATIENT PROVIDERS Status at Discharge Cognitive/behavioral status at discharge: oriented Functional status at discharge: uses cane/walker Overall status at discharge: patient is progressing back to baseline Time Spent with Patient Time spent: Greater than 30 minutes Exam Vital Signs (past 8 hours): - 06/06/21 02:45 06/06/21 06:00 06/06/21 07:45 Temperature 98.7 F 97.6 F Pulse Rate 67 68 Respiratory Rate 18 16 Blood Pressure 140/77 147/62 H Pulse Oximetry 98 97 100 Oxygen Delivery Method Room Air Oxygen Flow Rate 0 Narrative Exam Narrative: NO ACUTE DISTRESS.? APPEARS MUCH OLDER THAN STATED AGE.? THIN VITAL SIGNS STABLE HEAD ATRAUMATIC NORMOCEPHALIC NECK : SUPPLE WITHOUT ADENOPATHY NO CAROTID BRUITS EYE:? EOMI, PERRLA, NORMAL CONJUNCTIVA; NO JAUNDICE CHEST:? REGULAR RATE.? ? NO RUBS.? PMI IS NON DISPLACED.? NO MURMURS; NORMAL S1- S2 PULMONARY:? DECREASED BS OVER THE BASES.? MILD BIBASILAR CRACKLES NOTED; NO INCREASED DULLNESS TO PERCUSSION ABDOMEN:? SOFT.? NONTENDER.? NONDISTENDED.? BOWEL SOUNDS ARE PRESENT IN ALL 4 QUADRANTS.? NO MASS. EXTREMITIES: NO EDEMA..? NO CYANOSIS CLUBBING NOTED. NEURO:? CRANIAL NERVES 2-12 GROSSLY INTACT. NO FOCAL NEUROLOGICAL DEFICIT NOTED. MSK:? NORMAL RANGE OF MOTION FOR AGE.? NO JOINT EFFUSION.? POOR? MUSCULATURE SKIN:? NORMAL FOR ETHNICITY; NO ECCHYMOSIS.? NO LESION. .; NO RASHES :? NORMAL EXTERNAL GENITALIA. PSYCH :? APPROPRIATE MOOD AND AFFECT.? ALERT AWAKE ORIENTED X3 Objective Labs Result Diagrams: 06/06/21 06:45 06/06/21 06:45 Labs: Laboratory Results - last 24 hr 06/06/21 06/06/21 06:45 06:45 WBC 6.2 RBC 2.58 L Hgb 8.5 L Hct 25.2 L MCV 97.7 MCH 32.9 MCHC 33.6 RDW 16.5 H Plt Count 309 Neut % (Auto) 54.5 Lymph % (Auto) 34.0 [place] % (Auto) 10.5 Eos % (Auto) 0.6 L Baso % (Auto) 0.4 Neut # (Auto) 3400 Lymph # (Auto) 2100 [place] # (Auto) 600 Eos # (Auto) 0 Baso # (Auto) 0 Sodium 135 L Potassium 4.5 Chloride 107 Carbon Dioxide 27 BUN 6 L Creatinine 0.62 Estimated GFR > 60.0 BUN/Creatinine Ratio 9.7 Glucose 97 Calcium 9.0 Phosphorus 3.2 Total Bilirubin 0.2 AST 22 ALT 12 Alkaline Phosphatase 72 Total Protein 5.9 L Albumin 3.0 L Globulin 2.9 Albumin/Globulin Ratio 1.0 [facility] Medical History Generalized weakness Small bowel obstruction Social History household members: spouse Smoking Status: Never smoker alcohol intake: former Discharge Plan Discharge Plan Patient Disposition: SNF Transfer to: [facility] Discharge orders & Medications Prescriptions: New famotidine [Pepcid AC] 20 mg Tablet 20 mg PO DAILY Qty: 60 0RF dexamethasone 4 mg Tablet 4 mg PO BIDWM Qty: 6 0RF gabapentin 300 mg capsule 300 mg PO TID Qty: 120 0RF methocarbamol 500 mg Tablet 500 mg PO TID Qty: 90 0RF polyethylene glycol 3350 17 gram Powder In Packet 17 g PO BID Qty: 30 0RF melatonin 3 mg Tablet 6 mg PO BEDTIME Qty: 90 0RF metoclopramide HCl 5 mg Tablet 5 mg PO AC Qty: 90 0RF trazodone 50 mg Tablet 50 mg PO BEDTIME Qty: 90 0RF sucralfate 1 gram Tablet 1 gm PO ACHS Qty: 120 0RF tramadol 50 mg Tablet 50 mg PO TID Qty: 90 0RF oxycodone 5 mg tablet 5 mg PO Q6H PRN (Reason: pain) Qty: 20 0RF Continued losartan 25 MG tablet 25 mg PO QDAY Qty: 0 0RF levothyroxine [Synthroid] 75 MCG tablet 0.075 mg PO QDAY Qty: 0 0RF polyethylene glycol 3350 [Miralax] 119 GM powder 17 gm PO QDAY Qty: 0 0RF albuterol sulfate [Ventolin HFA] 90 MCG/PUFF HFA aerosol inhaler 2 puff INH Q4HP PRN (Reason: Bronchospasm) Qty: 0 0RF lamotrigine [Lamictal] 200 MG tablet 400 mg PO QDAY Qty: 0 0RF divalproex 500 MG tablet extended release 24 hr 1,000 mg PO HS Qty: 0 0RF acetaminophen [Tylenol Extra Strength] 500 MG tablet 1,000 mg PO Q6HP PRN (Reason: Abdominal Discomfort) 0RF Diet/Activity/Treatments Diet: Regular Food texture: Soft Activity: TOLERATED Skin/Wound/Dressing Care Report to your healthcare provider any signs of infection, such as:: chills, fever and night sweats Visit Report/Discharge Packet Instructions: Acute Pancreatitis
--- NOTE | 2021-06-06 10:57 | CM.DPC ---
DCP Cont: Patient is to be discharged back to [facility] today. Discussed with Janet at [facility]. She mentioned, main concern is that patient needs to be off of her IV pain medications, so she can go on oral. Discussed during team rounds. Patient's last dose of IV Dilaudid was at 0200. She will be switched to oral. Plan is for her to be on routine Tramadol, as well as Oxycodone. Updated Janet at [facility]. She has rapid COVID pending. Plan is for pick out hand at 1330. Nurse, Radha, is aware, and patient was updated. Updated white board at main nurses station. Faxed over DC Summary, prescriptions, as well as med sheets. Original placed in chart. P: Patient is to be discharged back to [facility] today. Jo Almeida RN/Director Of Counterintelligence
[2021-06-06 11:00] VITALS: BP 143/72; PULSE 74; RESP 20; TEMP 36.9; O2SAT 100
[2021-06-06 11:06] LABS: COVID19 -Nasal RAPID Negative (Negative)
--- NOTE | 2021-06-06 11:39 | PT.IPTN ---
Current Diagnoses Acute pancreatitis without necrosis or infection, unspecified (05/28/21) Physical Therapy Treatment Note M2 PT-IP Current Condition Start: 06/01/21 12:59 Freq: NEEDED Status: Active Protocol: Document 06/01/21 10:55 AB (Rec: 06/01/21 13:12 AB [id number]) Physical Therapy Current Condition Current Condition Evaluation Date 06/01/21 Treatment Diagnosis pancreatitis; difficulty in walking Onset Date 05/28/21 M3 PT-IP Subjective Start: 06/01/21 12:59 Freq: NEEDED Status: Active Protocol: Document 06/06/21 11:27 RBD (Rec: 06/06/21 11:59 RBD [id number]) Subjective Physical Therapy Visit Type Type Treatment Note Visit Start Time 11:27 Visit Stop Time 11:39 Total Visit Minutes 12 Number of NETWORK SECURITY CONSULTANT Visits 1 Physical Therapy Visit Comments Patient Comments agreeable to do PT M4 PT-IP Mobility and Gait Start: 06/01/21 12:59 Freq: NEEDED Status: Active Protocol: Document 06/06/21 11:27 RBD (Rec: 06/06/21 11:59 RBD [id number]) PT-Bed Mobility Assessment Rolling Type of Rolling Log Rolling Level of Assist Standby Assistance Supine to Sit Supine to Sit Contact Guard Assistance, Minimal Assistance Sit to Supine Sit to Supine Minimal Assistance,Moderate Assistance Scooting Scooting to Edge of Bed Contact Guard Assistance PT-Transfer Assessment Comments Mobility Comments Pt c/o increased nausea upon sitting EOB. Refused ambulation. PT-Balance Assessment Sitting Balance and Reactions Static Sitting Balance Ability Good Dynamic Sitting Balance Ability Good M5 PT-IP Objective Assessments Start: 06/01/21 12:59 Freq: NEEDED Status: Active Protocol: Document 06/01/21 10:55 AB (Rec: 06/01/21 13:12 AB [id number]) Orientation Orientation/Cognition Level of Alertness Alert Orientation Name,Place,Situation Safety Awareness Decreased Safety Awareness Memory Description Short Term Impaired Gross Range of Motion Lower Extremity ROM Assessment Within Functional Limits Strength Lower Extremity Strength Hip 4-/5 Knee 4-/5 Sensation Assessment Sensation Gross Sensation WNL Muscle Tone Muscle Tone WNL Yes M6 PT-IP Treatment Start: 06/01/21 12:59 Freq: NEEDED Status: Active Protocol: Document 06/06/21 11:27 RBD (Rec: 06/06/21 11:59 RBD [id number]) Physical Therapy Treatment Education Education Provided Safety M7 PT-IP Assessment and Plan Start: 06/01/21 12:59 Freq: NEEDED Status: Active Protocol: Document 06/06/21 11:27 RBD (Rec: 06/06/21 11:59 RBD [id number]) PT Summary Assessment and Plan Potential Rehabilitation Potential Fair Summary Impairments Pain,ROM,Strength,Balance, Coordination,Sensation,Tone, Cognition,Bed Mobility, Transfers,Gait,Activity Tolerance Assessment Summary Pt requires min cueing to perform log roll from supine < > sit. Pt verbalized increase in nausea upon sitting. Nausea did not reduce following seated rest break. Pt requires Min A to perform log roll from seated <> supine . Pt stated reduction in nausea. Pt left with bed alarm on, call light and all need within reach. Pt would benefit SNF rehab to improve over all strength. Goals Bed Mobility Goal Independent Transfer Goal Independent,Front Wheeled Walker Gait Goal Independent,Front Wheel Walker Gait Distance 200 Days to Meet Goals 5 Frequency of Treatment Frequency Of Treatment Once a Day Treatment Plan Physical Therapy Treatment Plan Bed Mobility Training,Transfer Training,Gait Training, Therapeutic Exercise,Balance Retraining,Post Op Education, Discharge Planning,Hot or Cold Pack,Neuromuscular Re-ed, Coordination Retraining Precautions Abdominal Surgery Precautions Log Roll,Lifting Restrictions, Gait Belt above Incisional Area Recommendations To Nursing Amount of Assist Needed 1 Person Assist Discharge Recommendations PT Discharge Recommendations SNF Rehab Transportation Needs at Discharge Wheelchair/Cabulance
--- NOTE | 2021-06-06 13:52 | PC.NURSE ---
Discharge to [facility] per provider. After she was told the d/c was schedule pt reported nausea and dizziness. Provider notified. VSS. RA. Able to tolerate meal. Enc Ensure supplemental drink. No nausea noted. Pt continued to request to stay additional days. States They don't give me my pills on time over there, I need IV pain and nausea medication. This bond writer and MD advised pt she is medically stable to d/c to SNF. Pt off unit with [facility] staff. Left in stable condition with all personal belongings. Spouse helping take belongings away. Report phoned to Katerine at [facility]. Advised Katerine to remove coban pressure dressing upon arrival.
== END 2021-06-06 13:50 | DRG 439 ==
LOC: ED 06:58 → AC 07:15
PROVIDERS: Hospitalist; Internal Medicine; Surgery; Admitting Provider Nurse Practitioner Family; Emergency Provider Emergency Medicine; Family Provider Internal Medicine; Referring Provider Emergency Medicine; Visit Provider Nurse Practitioner Family
DX: K85.90 Acute pancreatitis without necrosis or infection, unspecified (principal); T80.212A Local infection due to central venous catheter, initial encounter; D62 Acute posthemorrhagic anemia; E44.1 Mild protein-calorie malnutrition; F11.20 Opioid dependence, uncomplicated; Z68.22 Body mass index [BMI] 22.0-22.9, adult; F31.9 Bipolar disorder, unspecified; I10 Essential (primary) hypertension; E03.9 Hypothyroidism, unspecified; Z20.822 Contact with and (suspected) exposure to COVID-19; B96.5 Pseudomonas (aeruginosa) (mallei) (pseudomallei) as the cause of diseases classified elsewhere; Z65.8 Other specified problems related to psychosocial circumstances
CPT/HCPCS: 36415; 36592; 74177; 74181; 74250; 76705; 78227; 80048; 80053; 80061; 80076; 82150; 82962; 83605; 83615; 83690; 83735; 84100; 84134; 85025; 85027; 85610; 86140; 86850; 86900; 86901; 87070; 87075; 87077; 87186; 87205; 87635; 94760; 96361; 96374; 96375; 97116; 97161; 97165; 97530; 97535; 99231; 99232; 99284; A9537; C9803; A9270; J0692; J1100; J1170; J1200; J1642; J2060; J2405; J2765; J2805; Q9967

== ENCOUNTER 2021-06-18 16:52 | Inpatient (IN) | payer MEDICARE, OTHER, SELFPAY ==
[2021-05-28 11:08] VITALS: BMI 24.1
[2021-06-18] VITALS (13 sets, daily range): BP systolic 145–196; BP diastolic 71–93; PULSE 55–64; RESP 7–20; TEMP 36.4–37.1; O2SAT 99–100; BMI 22.3
--- NOTE | 2021-06-18 16:57 | ED_ITS ---
HPI - Abdominal Pain <Chantel Warren [facility] - Last Filed: 06/18/21 20:44> General Chief Complaint: Abdominal Pain Stated Complaint: Abd pain Time Seen by Provider: 06/18/21 16:55 History of Present Illness HPI narrative: Patient is a 70-year-old female who arrives for evaluation of a couple hours of abdominal cramping/pain.? She is having nausea but no vomiting.? She is still passing flatus.? Had a very small bowel movement earlier today.? She has had extensive abdominal history to include PMH of ulcerative colitis s/p subtotal colectomy with ileoanal pouch, Ellie fundoplication, small bowel fistula, multiple surgeries for adhesive disease, recent exlap last month for free air with no source found who presents to the hospital with abdominal pain. She s tates she has been in rehab for 2 weeks and was discharged from [facility] for pancreatitis on 06/06/2021. She reports 2 days ago she started feeling sharp abdominal pain, nausea, today she had some Zofran which did not. She is passing gas, she has had a bowel movement that is thin. No blood, no vomit. No fevers/chills. She has had another episode of pancreatitis in the past and never found out what the cause was. Less than 1 month ago she had a exploratory laparotomy done at an outside facility for concern of perforated bowel with lysis of adhesions.? She was discharged from the hospital earlier this week to rehab facility. Patient's lipase was 1495 on her last admission from 05/28/2021 Related Data Home Medications Medication Instructions Recorded Confirmed albuterol sulfate 90 mcg/actuation 2 puff INH Q4HP PRN #0 04/17/16 06/18/21 aerosol inhaler (Ventolin HFA) divalproex 500 mg tablet,extended 1,000 mg PO HS #0 04/17/16 06/18/21 release 24 hr lamotrigine 200 mg tablet 400 mg PO QDAY #0 04/17/16 06/18/21 (Lamictal) levothyroxine 75 mcg tablet 0.075 mg PO QDAY #0 04/17/16 06/18/21 (Synthroid) losartan 25 mg tablet 25 mg PO QDAY #0 04/17/16 06/18/21 acetaminophen 500 mg tablet 1,000 mg PO Q6HP PRN 05/28/21 06/18/21 (Tylenol Extra Strength) Previous Rx's Medication Instructions Recorded dexamethasone 4 mg tablet 4 mg PO BIDWM #6 tab 06/06/21 famotidine 20 mg tablet (Pepcid AC) 20 mg PO DAILY #60 tab 06/06/21 gabapentin 300 mg capsule 300 mg PO TID #120 cap 06/06/21 melatonin 3 mg tablet 6 mg PO BEDTIME #90 tab 06/06/21 methocarbamol 500 mg tablet 500 mg PO TID #90 tab 06/06/21 metoclopramide HCl 5 mg tablet 5 mg PO AC #90 tab 06/06/21 oxycodone 5 mg tablet 5 mg PO Q6H PRN #20 tab 06/06/21 polyethylene glycol 3350 17 gram 17 g PO BID #30 ea 06/06/21 oral powder packet sucralfate 1 gram tablet 1 gm PO ACHS #120 tab 06/06/21 tramadol 50 mg tablet 50 mg PO TID #90 tab 06/06/21 trazodone 50 mg tablet 50 mg PO BEDTIME #90 tab 06/06/21 Allergies Allergy/AdvReac Type Severity Reaction Status Date / Time butorphanol Allergy Unknown Verified 06/18/21 18:33 Influenza Virus Vaccines Allergy Unknown ITCHING, Verified 06/18/21 18:33 BAD REACTION meperidine Allergy Unknown Verified 06/18/21 18:33 pneumococcal vaccine Allergy Unknown Verified 06/18/21 18:33 quetiapine Allergy Unknown Verified 06/18/21 18:33 shellfish derived Allergy Unknown Verified 06/18/21 18:33 neuroleptics AdvReac Unknown PT STATES Uncoded 09/27/17 12:31 HAD REALLY BAD REACTION, UNABLE TO STATE WHAT Review of Systems <Chantel Warren [facility] - Last Filed: 06/18/21 20:44> Review of Systems Narrative: General: denies fever, chills, reports she is unable to keep anything down, feels weak Head/Neck: denies headache, neck pain Eyes: denies visual changes, eye pain Cardio: denies chest pain, palpitations Respiratory: denies shortness of breath, cough GI: Endorses right upper quadrant abdominal pain, nausea, vomiting, denies diarrhea : denies dysuria, hematuria denies incontinence although endorses wearing a b rief and that is wet MSK: denies joint pain, muscle weakness Skin: denies rash, itching Neuro: denies numbness, tingling Patient History <ADOLPH Laura - Last Filed: 06/18/21 20:44> Medical History (Updated 06/18/21 @ 22:39 by ADOLPH Lora) Generalized weakness Small bowel obstruction Surgical History (Updated 06/18/21 @ 22:39 by ADOLPH Lora) H/O thyroidectomy Family History Mother Diabetes mellitus Heart disease Father Diabetes mellitus Heart disease Brother Myocardial infarction CVA (cerebral vascular accident) Other Hypertension Social History household members: spouse Smoking Status: Never smoker alcohol intake: former Smoking Status: Never smoker Substance Use Type: does not use Exam <ADOLPH Laura - Last Filed: 06/18/21 20:44> Narrative Exam Narrative: Independently reviewed vitals signs and nursing notes. General: Awake, alert, nontoxic, no cardiorespiratory distress, frail, appears dehydrated Head/Neck: Atraumatic, neck full range of motion Eyes: EOMI, conjunctiva normal Nose: nares patent, no rhinorrhea Mouth/Throat: moist mucus membranes, posterior pharynx normal, no oral lesions Cardio: Regular rate and rhythm, no peripheral edema Respiratory: respirations unlabored without wheezing, stridor, or rales. No retractions. GI: Abdomen soft, tender to palpation over right upper quadrant, multiple episodes of dry heaving while at patient's bedside MSK: Moves all extremities, neurovascularly intact Skin: Dry skin, Normal capillary refill, no rash Neuro: Normal speech and cognition, normal gait Initial Vital Signs Initial Vital Signs: Vital Signs Blood Pressure 184/93 H 06/18/21 16:56 <Salazar Garcia DO - Last Filed: 06/19/21 02:20> Initial Vital Signs Initial Vital Signs: Vital Signs Blood Pressure 184/93 H 06/18/21 16:56 Course <ADOLPH Laura - Last Filed: 06/18/21 20:44> Orders Ordered: ED Orders 06/18/21 18:25 Amylase Stat Complete Blood Count AUTO DIFF Stat Comprehensive Metabolic Panel Stat Lactate (Lactic Acid) Stat Lipase Stat Troponin & CK Cardiac Panel Stat 06/18/21 18:28 CT abdomen pelvis w con Stat 06/18/21 19:30 COVID19 - ADMIT ([employer] swab/PCR) Stat Acetaminophen (Acetaminophen 650 Mg Supp) 650 mg MI Q4HR PRN PRN Reason: Fever/Mild Pain (1-3) Enoxaparin Sodium (Enoxaparin 40 Mg/0.4 Ml Syringe) 40 mg SUBCUT DAILY CYNDI Sodium Chloride (Normal Saline 0.9%) 1,000 mls @ 125 mls/hr IV CONT CYNDI Last Admin: 06/18/21 21:40 Dose: 125 mls/hr Documented by: BECKI Lamotrigine (Lamotrigine 100 Mg Tablet) 400 mg PO DAILY CYNDI Levothyroxine Sodium (Levothyroxine 75 Mcg Tablet) 75 mcg PO QACBREAK CYNDI Losartan Potassium (Losartan 25 Mg Tablet) 25 mg PO DAILY CYNDI Melatonin (Melatonin 3 Mg Tablet) 6 mg PO BEDTIME CYNDI Last Admin: 06/18/21 22:12 Dose: Not Given Documented by: RACHELL Metoclopramide HCl (Metoclopramide 10 Mg/2 Ml Inj) 5 mg IV Q6HR PRN PRN Reason: Nausea And Vomiting Last Admin: 06/19/21 02:05 Dose: 5 mg Documented by: RACHELL Morphine Sulfate (Morphine 2 Mg/Ml Inj) 2 mg IV Q4HR PRN PRN Reason: Pain, Moderate (4-6) Last Admin: 06/19/21 02:06 Dose: 2 mg Documented by: Admin: 06/18/21 21:55 Dose: 2 mg Documented by: RACHELL Naloxone HCl (Naloxone 0.4 Mg/Ml Vial) 0.2 mg IV Q2MIN PRN PRN Reason: Opiate Reversal Ondansetron HCl (Ondansetron 4 Mg/2 Ml Inj) 4 mg IV Q6HR PRN PRN Reason: Nausea And Vomiting Last Admin: 06/18/21 21:56 Dose: 4 mg Documented by: RACHELL Discontinued Medications Hydromorphone HCl (Hydromorphone 0.5 Mg Inj) 0.5 mg IV NOW ONE Stop: 06/18/21 17:03 Last Admin: 06/18/21 18:33 Dose: 0.5 mg Documented by: DOROTEO Sodium Chloride (Normal Saline 0.9%) 500 mls @ 1,000 mls/hr IV BOLUS ONE Stop: 06/18/21 17:31 Last Infusion: 06/18/21 20:30 Dose: 0 mls/hr Documented by: Admin: 06/18/21 18:34 Dose: 1,000 mls/hr Documented by: DORTOEO Sodium Chloride (Normal Saline 0.9%) 500 mls @ 1,000 mls/hr IV BOLUS ONE Stop: 06/18/21 20:54 Last Infusion: 06/18/21 20:37 Dose: 1,000 mls/hr Documented by: Admin: 06/18/21 20:30 Dose: 1,000 mls/hr Documented by: MIL Ondansetron HCl (Ondansetron 4 Mg/2 Ml Inj) 4 mg IV NOW ONE Stop: 06/18/21 17:03 Last Admin: 06/18/21 18:33 Dose: 4 mg Documented by: DOROTEO Ondansetron HCl (Ondansetron 4 Mg/2 Ml Inj) 4 mg IV NOW ONE Stop: 06/18/21 19:22 Last Admin: 06/18/21 19:28 Dose: 4 mg Documented by: WILIAM Vital Signs Vital signs: Vital Signs - 8 hr 06/18/21 18:28 06/18/21 18:30 06/18/21 19:00 Pulse Rate 62 63 56 L Respiratory Rate 7 L Blood Pressure 196/93 H 191/88 H Pulse Oximetry 100 100 99 06/18/21 19:16 06/18/21 19:30 06/18/21 20:00 Pulse Rate 59 L 59 L 55 L Respiratory Rate 13 16 Blood Pressure 186/81 H Pulse Oximetry 100 100 99 <Salazar Garcia DO - Last Filed: 06/19/21 02:20> Orders Ordered: ED Orders 06/18/21 18:25 Amylase Stat Complete Blood Count AUTO DIFF Stat Comprehensive Metabolic Panel Stat Lactate (Lactic Acid) Stat Lipase Stat Troponin & CK Cardiac Panel Stat 06/18/21 18:28 CT abdomen pelvis w con Stat 06/18/21 19:30 COVID19 - ADMIT ([employer] swab/PCR) Stat Acetaminophen (Acetaminophen 650 Mg Supp) 650 mg MI Q4HR PRN PRN Reason: Fever/Mild Pain (1-3) Enoxaparin Sodium (Enoxaparin 40 Mg/0.4 Ml Syringe) 40 mg SUBCUT DAILY [facility] Sodium Chloride (Normal Saline 0.9%) 1,000 mls @ 125 mls/hr IV CONT CYNDI Last Admin: 06/18/21 21:40 Dose: 125 mls/hr Documented by: BECKI Lamotrigine (Lamotrigine 100 Mg Tablet) 400 mg PO DAILY CYNDI Levothyroxine Sodium (Levothyroxine 75 Mcg Tablet) 75 mcg PO QACBREAK CYNDI Losartan Potassium (Losartan 25 Mg Tablet) 25 mg PO DAILY CYNDI Melatonin (Melatonin 3 Mg Tablet) 6 mg PO BEDTIME CYNDI Last Admin: 06/18/21 22:12 Dose: Not Given Documented by: RACHELL Metoclopramide HCl (Metoclopramide 10 Mg/2 Ml Inj) 5 mg IV Q6HR PRN PRN Reason: Nausea And Vomiting Last Admin: 06/19/21 02:05 Dose: 5 mg Documented by: RACHELL Morphine Sulfate (Morphine 2 Mg/Ml Inj) 2 mg IV Q4HR PRN PRN Reason: Pain, Moderate (4-6) Last Admin: 06/19/21 02:06 Dose: 2 mg Documented by: Admin: 06/18/21 21:55 Dose: 2 mg Documented by: RACHELL Naloxone HCl (Naloxone 0.4 Mg/Ml Vial) 0.2 mg IV Q2MIN PRN PRN Reason: Opiate Reversal Ondansetron HCl (Ondansetron 4 Mg/2 Ml Inj) 4 mg IV Q6HR PRN PRN Reason: Nausea And Vomiting Last Admin: 06/18/21 21:56 Dose: 4 mg Documented by: RACHELL Discontinued Medications Hydromorphone HCl (Hydromorphone 0.5 Mg Inj) 0.5 mg IV NOW ONE Stop: 06/18/21 17:03 Last Admin: 06/18/21 18:33 Dose: 0.5 mg Documented by: DOROTEO Sodium Chloride (Normal Saline 0.9%) 500 mls @ 1,000 mls/hr IV BOLUS ONE Stop: 06/18/21 17:31 Last Infusion: 06/18/21 20:30 Dose: 0 mls/hr Documented by: Admin: 06/18/21 18:34 Dose: 1,000 mls/hr Documented by: DOROTEO Sodium Chloride (Normal Saline 0.9%) 500 mls @ 1,000 mls/hr IV BOLUS ONE Stop: 06/18/21 20:54 Last Infusion: 06/18/21 20:37 Dose: 1,000 mls/hr Documented by: Admin: 06/18/21 20:30 Dose: 1,000 mls/hr Documented by: MIL Ondansetron HCl (Ondansetron 4 Mg/2 Ml Inj) 4 mg IV NOW ONE Stop: 06/18/21 17:03 Last Admin: 06/18/21 18:33 Dose: 4 mg Documented by: DOROTEO Ondansetron HCl (Ondansetron 4 Mg/2 Ml Inj) 4 mg IV NOW ONE Stop: 06/18/21 19:22 Last Admin: 06/18/21 19:28 Dose: 4 mg Documented by: WILIAM Vital Signs Vital signs: Vital Signs - 8 hr 06/18/21 18:28 06/18/21 18:30 06/18/21 19:00 Pulse Rate 62 63 56 L Respiratory Rate 7 L Blood Pressure 196/93 H 191/88 H Pulse Oximetry 100 100 99 06/18/21 19:16 06/18/21 19:30 06/18/21 20:00 Pulse Rate 59 L 59 L 55 L Respiratory Rate 13 16 Blood Pressure 186/81 H Pulse Oximetry 100 100 99 MDM - Abdominal Pain <ADOLPH Laura - Last Filed: 06/18/21 20:44> Lab Data Result diagrams: 06/18/21 18:25 06/18/21 18:25 Labs: Lab Results 06/18/21 06/18/21 06/18/21 Range/Units 18:25 18:25 18:25 WBC 9.5 (4.5-11.0) X10^3/uL RBC 3.42 L (4.0-5.2) X10^6/uL Hgb 11.1 L (12.0-16.0) g/dL Hct 32.4 L (36-46) % MCV 94.6 (80-100) fL MCH 32.4 (26-34) PG MCHC 34.3 (30-36) % RDW 15.3 H (11.6-14.8) % Plt Count 227 (150-400) X10^3/uL Neut % (Auto) 81.9 H (50-75) % Lymph % (Auto) 12.0 L (25-40) % [place] % (Auto) 6.0 (3-14) % Eos % (Auto) 0.0 L (2-4) % Baso % (Auto) 0.1 (0-2) % Neut # (Auto) 7700 H (6673-8529) /uL Lymph # (Auto) 1100 (4754-1807) /uL [place] # (Auto) 600 (0-900) /uL Eos # (Auto) 0 (0-450) /uL Baso # (Auto) 0 (0-100) /uL Sodium (137-145) mmol/L Potassium (3.4-5.1) mmol/L Chloride (98-107) mmol/L Carbon Dioxide (22-32) mmol/L BUN (7-17) mg/dL Creatinine (0.52-1.04) mg/dL Estimated GFR (>60) mL/min BUN/Creatinine Ratio (6-22) Glucose (80-110) mg/dL Lactate 1.4 (0.7-2.1) mmol/L Calcium (8.4-10.2) mg/dL Total Bilirubin (0.2-1.3) mg/dL Conjugated Bilirubin (0.0-0.3) md/dL Unconjugated Bilirubin (0.0-1.1) mg/dL AST (14-36) IU/L ALT (<35) IU/L Alkaline Phosphatase (38-126) U/L Total Creatine Kinase (30-135) U/L CK-MB (CK-2) CK-MB (CK-2) Rel Index Troponin I (0.01-0.034) ng/mL Total Protein (6.3-8.2) g/dL Albumin (3.5-5.0) g/dL Globulin (1.7-4.1) g/dL Albumin/Globulin Ratio (1.0-2.8) Amylase 158 H (30-110) U/L Lipase (23-300) U/L SARS-CoV-2 (PCR) (Negative) 06/18/21 06/18/2106/18/21 Range/Units 18:25 18:25 18:25 WBC (4.5-11.0) X10^3/uL RBC (4.0-5.2) X10^6/uL Hgb (12.0-16.0) g/dL Hct (36-46) % MCV (80-100) fL MCH (26-34) PG MCHC (30-36) % RDW (11.6-14.8) % Plt Count (150-400) X10^3/uL Neut % (Auto) (50-75) % Lymph % (Auto) (25-40) % [place] % (Auto) (3-14) % Eos % (Auto) (2-4) % Baso % (Auto) (0-2) % Neut # (Auto) (3556-1251) /uL Lymph # (Auto) (0114-9486) /uL [place] # (Auto) (0-900) /uL Eos # (Auto) (0-450) /uL Baso # (Auto) (0-100) /uL Sodium 131 L (137-145) mmol/L Potassium 4.4 (3.4-5.1) mmol/L Chloride 96 L (98-107) mmol/L Carbon Dioxide 32 (22-32) mmol/L BUN 21 H (7-17) mg/dL Creatinine 0.72 (0.52-1.04) mg/dL Estimated GFR > 60.0 (>60) mL/min BUN/Creatinine Ratio 29.2 H (6-22) Glucose 108 (80-110) mg/dL Lactate (0.7-2.1) mmol/L Calcium 9.2 (8.4-10.2) mg/dL Total Bilirubin 0.4 0.4 (0.2-1.3) mg/dL Conjugated Bilirubin 0.0 (0.0-0.3) md/dL Unconjugated Bilirubin 0.3 (0.0-1.1) mg/dL AST 18 29 (14-36) IU/L ALT 14 14 (<35) IU/L Alkaline Phosphatase 62 60 (38-126) U/L Total Creatine Kinase < 20 L (30-135) U/L CK-MB (CK-2) TNP CK-MB (CK-2) Rel Index TNP Troponin I < 0.012 (0.01-0.034) ng/mL Total Protein 6.6 6.6 (6.3-8.2) g/dL Albumin 3.8 3.8 (3.5-5.0) g/dL Globulin 2.8 2.8 (1.7-4.1) g/dL Albumin/Globulin Ratio 1.4 1.4 (1.0-2.8) Amylase (30-110) U/L Lipase 323 H (23-300) U/L SARS-CoV-2 (PCR) (Negative) 06/18/21 Range/Units 19:30 WBC (4.5-11.0) X10^3/uL RBC (4.0-5.2) X10^6/uL Hgb (12.0-16.0) g/dL Hct (36-46) % MCV (80-100) fL MCH (26-34) PG MCHC (30-36) % RDW (11.6-14.8) % Plt Count (150-400) X10^3/uL Neut % (Auto) (50-75) % Lymph % (Auto) (25-40) % [place] % (Auto) (3-14) % Eos % (Auto) (2-4) % Baso % (Auto) (0-2) % Neut # (Auto) (9314-0219) /uL Lymph # (Auto) (4930-9284) /uL [place] # (Auto) (0-900) /uL Eos # (Auto) (0-450) /uL Baso # (Auto) (0-100) /uL Sodium (137-145) mmol/L Potassium (3.4-5.1) mmol/L Chloride (98-107) mmol/L Carbon Dioxide (22-32) mmol/L BUN (7-17) mg/dL Creatinine (0.52-1.04) mg/dL Estimated GFR (>60) mL/min BUN/Creatinine Ratio (6-22) Glucose (80-110) mg/dL Lactate (0.7-2.1) mmol/L Calcium (8.4-10.2) mg/dL Total Bilirubin (0.2-1.3) mg/dL Conjugated Bilirubin (0.0-0.3) md/dL Unconjugated Bilirubin (0.0-1.1) mg/dL AST (14-36) IU/L ALT (<35) IU/L Alkaline Phosphatase (38-126) U/L Total Creatine Kinase (30-135) U/L CK-MB (CK-2) CK-MB (CK-2) Rel Index Troponin I (0.01-0.034) ng/mL Total Protein (6.3-8.2) g/dL Albumin (3.5-5.0) g/dL Globulin (1.7-4.1) g/dL Albumin/Globulin Ratio (1.0-2.8) Amylase (30-110) U/L Lipase (23-300) U/L SARS-CoV-2 (PCR) Negative (Negative) Point of care testing: Urine Dip Bedside Urine Glucose Negative Bedside Urine Bilirubin - Negative Bedside Urine Ketone - Negative Urine Specific [place] 1.015 Bedside Urine Occult Blood - Negative Bedside Urine pH 7.5 Bedside Urine Protein - Negative Bedside Urine Urobilinogen - Negative Bedside Urine Nitrite - Negative Bedside Urine Leukocytes - Negative Esterase Imaging Data CT scan - abdomen/pelvis: Radiologist's Impression: PROCEDURE:? CT ABDOMEN PELVIS W CON ? INDICATIONS:? c/f perforation, pancreatitis? pancreatic fluid collection? ? TECHNIQUE:? After the administration of IV contrast, axial sections were acquired from the lung bases to the pubic symphysis.? Coronal and sagittal reformats were performed.? For radiation dose reduction, the following was used:? automated exposure control, adjustment of mA and/or kV according to patient size. ? COMPARISON:? [facility], CT, ABDOMEN/PELVIS WITH CONTRAST, 04/17/2016, 3:46.? [facility], CT, CT ABDOMEN PELVIS W CON, 05/28/2021, 4:59. ? FINDINGS:? Image quality:? Excellent.? ? Lung bases:? Unremarkable.? ? Heart:? No significant findings. ? ? ABDOMEN: Liver:? The liver is enlarged with steatosis. Gallbladder:? No visualized stone.? The gallbladder wall continues to be somewhat irregular with minimal fluid in the gallbladder fossa, decreased compared to prior exam. Biliary ducts:? Unremarkable.? ? Pancreas:? Pancreas is normal appearance.? No fluid collection or inflammatory change. Spleen:? Unremarkable.? ? Adrenal Glands:? Unremarkable.? ? Kidneys and Ureters:? Multiple low-attenuation bilateral renal foci are present likely cysts, unchanged.? ? ? Stomach and Bowel:? Postsurgical changes reflecting colectomy are noted.? There are Modic sutures at the level of the rectum.? There is a prominent loop of bowel a medial proximal to this region, as well as scattered areas of mildly prominent more proximal small bowel. ?No perforation. Peritoneum:? No abnormal intraperitoneal fluid.? No free air.? ? Ventral Wall: ? No hernia.? Abdominal Nodes:? No retroperitoneal or mesenteric adenopathy by size criteria.? Vessels:? Aorta and inferior vena cava are normal in size.? ? PELVIS: Pelvic Organs:? Unremarkable.? ? Bladder:? Bladder is incompletely distended secondary to Ty catheter placement. Pelvic Nodes: No enlarged lymph nodes.? Miscellaneous:? Fat containing right inguinal hernia is present. ? Bones:? Unremarkable.? IMPRESSION:? ? Postsurgical colectomy changes as above.? Mildly dilated loop of proximal bowel from the anastomotic site with scattered loops of more proximal small bowel.? Overall appearance is suggestive ileus/developing partial small bowel obstruction.? No perforation. ? ? Dictated by: Tahmina Alvarez M.D. on 06/18/2021 at 19:44 ? ? Approved by: Tahmina Alvarez M.D. on 06/18/2021 at 19:55 ? [facility] Narrative Medical decision making narrative: 70 year female presents to the emergency department by ambulance complaining of emesis all day and right upper quadrant pain. Patient was recently discharged the hospital for pancreatitis and has been unable to tolerate p.o. for the last 2 days. She is afebrile, lab work is pertinent for a lipase of 323 which is trending down from her admission lipase on 05/28/2021 of 1495. She does not appear to have a UTI, she is not tolerating p.o. and has had multiple doses of Zofran, she has received 1 L of normal saline, she has right upper quadrant pain, with generalized abdominal discomfort. She did not appear to have peritonitis. CT abdomen pelvis shows mildly dilated loop of proximal bowel from the anastomotic site with scattered loops of more proximal small bowel and overall appearance is suggestive of an ileus versus developing partial small- bowel obstruction without perforation. Dr. Camargo was consulted for partial small-bowel obstruction versus ileus, on chart review this was also present in her upper GI and small-bowel x-ray on 06/03/2021. ADOLPH Prather Hospitalist was consulted for admission for nausea vomiting, ileus, and ongoing clinical pancreatitis. She accepted patient for admission. Patient was informed of lab and imaging results, diagnoses, consulting physicians, and treatment plan. I have spoken with the patient in regard to admission, patient understands and agrees. I have communicated the patient's evaluation and treatment plan to the admitting physician who agrees with admission. All questions answered at this time. <Salazar Garcia, DO - Last Filed: 06/19/21 02:20> Lab Data Labs: Lab Results 06/18/21 06/18/21 06/18/21 Range/Units 18:25 18:25 18:25 WBC 9.5 (4.5-11.0) X10^3/uL RBC 3.42 L (4.0-5.2) X10^6/uL Hgb 11.1 L (12.0-16.0) g/dL Hct 32.4 L (36-46) % MCV 94.6 (80-100) fL MCH 32.4 (26-34) PG MCHC 34.3 (30-36) % RDW 15.3 H (11.6-14.8) % Plt Count 227 (150-400) X10^3/uL Neut % (Auto) 81.9 H (50-75) % Lymph % (Auto) 12.0 L (25-40) % [place] % (Auto) 6.0 (3-14) % Eos % (Auto) 0.0 L (2-4) % Baso % (Auto) 0.1 (0-2) % Neut # (Auto) 7700 H (6206-7941) /uL Lymph # (Auto) 1100 (1147-1844) /uL [place] # (Auto) 600 (0-900) /uL Eos # (Auto) 0 (0-450) /uL Baso # (Auto) 0 (0-100) /uL Sodium (137-145) mmol/L Potassium (3.4-5.1) mmol/L Chloride (98-107) mmol/L Carbon Dioxide (22-32) mmol/L BUN (7-17) mg/dL Creatinine (0.52-1.04) mg/dL Estimated GFR (>60) mL/min BUN/Creatinine Ratio (6-22) Glucose (80-110) mg/dL Lactate 1.4 (0.7-2.1) mmol/L Calcium (8.4-10.2) mg/dL Total Bilirubin (0.2-1.3) mg/dL Conjugated Bilirubin (0.0-0.3) md/dL Unconjugated Bilirubin (0.0-1.1) mg/dL AST (14-36) IU/L ALT (<35) IU/L Alkaline Phosphatase (38-126) U/L Total Creatine Kinase (30-135) U/L CK-MB (CK-2) CK-MB (CK-2) Rel Index Troponin I (0.01-0.034) ng/mL Total Protein (6.3-8.2) g/dL Albumin (3.5-5.0) g/dL Globulin (1.7-4.1) g/dL Albumin/Globulin Ratio (1.0-2.8) Amylase 158 H (30-110) U/L Lipase (23-300) U/L SARS-CoV-2 (PCR) (Negative) 06/18/21 06/18/21 06/18/21 Range/Units 18:25 18:25 18:25 WBC (4.5-11.0) X10^3/uL RBC (4.0-5.2) X10^6/uL Hgb (12.0-16.0) g/dL Hct (36-46) % MCV (80-100) fL MCH (26-34) PG MCHC (30-36) % RDW (11.6-14.8) % Plt Count (150-400) X10^3/uL Neut % (Auto) (50-75) % Lymph % (Auto) (25-40) % [place] % (Auto) (3-14) % Eos % (Auto) (2-4) % Baso % (Auto) (0-2) % Neut # (Auto) (1733-7856) /uL Lymph # (Auto) (1683-3182) /uL [place] # (Auto) (0-900) /uL Eos # (Auto) (0-450) /uL Baso # (Auto) (0-100) /uL Sodium 131 L (137-145) mmol/L Potassium 4.4 (3.4-5.1) mmol/L Chloride 96 L (98-107) mmol/L Carbon Dioxide 32 (22-32) mmol/L BUN 21 H (7-17) mg/dL Creatinine 0.72 (0.52-1.04) mg/dL Estimated GFR > 60.0 (>60) mL/min BUN/Creatinine Ratio 29.2 H (6-22) Glucose 108 (80-110) mg/dL Lactate (0.7-2.1) mmol/L Calcium 9.2 (8.4-10.2) mg/dL Total Bilirubin 0.4 0.4 (0.2-1.3) mg/dL Conjugated Bilirubin 0.0 (0.0-0.3) md/dL Unconjugated Bilirubin 0.3 (0.0-1.1) mg/dL AST 18 29 (14-36) IU/L ALT 14 14 (<35) IU/L Alkaline Phosphatase 62 60 (38-126) U/L Total Creatine Kinase < 20 L (30-135) U/L CK-MB (CK-2) TNP CK-MB (CK-2) Rel Index TNP Troponin I < 0.012 (0.01-0.034) ng/mL Total Protein 6.6 6.6 (6.3-8.2) g/dL Albumin 3.8 3.8 (3.5-5.0) g/dL Globulin 2.8 2.8 (1.7-4.1) g/dL Albumin/Globulin Ratio 1.4 1.4 (1.0-2.8) Amylase (30-110) U/L Lipase 323 H (23-300) U/L SARS-CoV-2 (PCR) (Negative) 06/18/21 Range/Units 19:30 WBC (4.5-11.0) X10^3/uL RBC (4.0-5.2) X10^6/uL Hgb (12.0-16.0) g/dL Hct (36-46) % MCV (80-100) fL MCH (26-34) PG MCHC (30-36) % RDW (11.6-14.8) % Plt Count (150-400) X10^3/uL Neut % (Auto) (50-75) % Lymph % (Auto) (25-40) % [place] % (Auto) (3-14) % Eos % (Auto) (2-4) % Baso % (Auto) (0-2) % Neut # (Auto) (2887-0065) /uL Lymph # (Auto) (2254-3085) /uL [place] # (Auto) (0-900) /uL Eos # (Auto) (0-450) /uL Baso # (Auto) (0-100) /uL Sodium (137-145) mmol/L Potassium (3.4-5.1) mmol/L Chloride (98-107) mmol/L Carbon Dioxide (22-32) mmol/L BUN (7-17) mg/dL Creatinine (0.52-1.04) mg/dL Estimated GFR (>60) mL/min BUN/Creatinine Ratio (6-22) Glucose (80-110) mg/dL Lactate (0.7-2.1) mmol/L Calcium (8.4-10.2) mg/dL Total Bilirubin (0.2-1.3) mg/dL Conjugated Bilirubin (0.0-0.3) md/dL Unconjugated Bilirubin (0.0-1.1) mg/dL AST (14-36) IU/L ALT (<35) IU/L Alkaline Phosphatase (38-126) U/L Total Creatine Kinase (30-135) U/L CK-MB (CK-2) CK-MB (CK-2) Rel Index Troponin I (0.01-0.034) ng/mL Total Protein (6.3-8.2) g/dL Albumin (3.5-5.0) g/dL Globulin (1.7-4.1) g/dL Albumin/Globulin Ratio (1.0-2.8) Amylase (30-110) U/L Lipase (23-300) U/L SARS-CoV-2 (PCR) Negative (Negative) Point of care testing: Urine Dip Bedside Urine Glucose Negative Bedside Urine Bilirubin - Negative Bedside Urine Ketone - Negative Urine [facility] [place] 1.015 Bedside Urine Occult Blood - Negative Bedside Urine pH 7.5 Bedside Urine Protein - Negative Bedside Urine Urobilinogen - Negative Bedside Urine Nitrite - Negative Bedside Urine Leukocytes - Negative Esterase Critical Care Time <Chantel J Crew, INTERNATIONAL CONTROLLER - Last Filed: 06/18/21 20:44> Critical Care Time Critical Care Time: Yes Total Critical Care Time: 40 Attestation: Greater than 30 minutes was spent consultation services, attempting line placement, obtaining IV access via each day, and discussion patient's case with specialist. Discharge Plan Departure Patient Disposition: Admitted As Inpatient Clinical Impression: Ileus Pancreatitis Qualifiers: Chronicity: acute Nausea & vomiting Qualifiers: Vomiting type: unspecified Vomiting Intractability: intractable Qualified Code(s): R11.2 - Nausea with vomiting, unspecified Admit Date/Time: 06/18/21 20:21 Admit Provider: Melita Prather <Salazar Garcia DO - Last Filed: 06/19/21 02:20> Cosign ED Attending Cosignature Attestation: I was immediately available in the department for consultation. This documentation has been reviewed and I agree with assessment and plan. Supervised by Salazar Garcia DO
--- NOTE | 2021-06-18 18:28 | DI.CT.S_ITS ---
PROCEDURE: CT ABDOMEN PELVIS W CON INDICATIONS: c/f perforation, pancreatitis? pancreatic fluid collection? TECHNIQUE: After the administration of IV contrast, axial sections were acquired from the lung bases to the pubic symphysis. Coronal and sagittal reformats were performed. For radiation dose reduction, the following was used: automated exposure control, adjustment of mA and/or kV according to patient size. COMPARISON: [facility], CT, ABDOMEN/PELVIS WITH CONTRAST, 04/17/2016, 3:46. [facility], CT, CT ABDOMEN PELVIS W CON, 05/28/2021, 4:59. FINDINGS: Image quality: Excellent. Lung bases: Unremarkable. Heart: No significant findings. ABDOMEN: Liver: The liver is enlarged with steatosis. Gallbladder: No visualized stone. The gallbladder wall continues to be somewhat irregular with minimal fluid in the gallbladder fossa, decreased compared to prior exam. Biliary ducts: Unremarkable. Pancreas: Pancreas is normal appearance. No fluid collection or inflammatory change. Spleen: Unremarkable. Adrenal Glands: Unremarkable. Kidneys and Ureters: Multiple low-attenuation bilateral renal foci are present likely cysts, unchanged. Stomach and Bowel: Postsurgical changes reflecting colectomy are noted. There are Modic sutures at the level of the rectum. There is a prominent loop of bowel a medial proximal to this region, as well as scattered areas of mildly prominent more proximal small bowel. No perforation. Peritoneum: No abnormal intraperitoneal fluid. No free air. Ventral Wall: No hernia. Abdominal Nodes: No retroperitoneal or mesenteric adenopathy by size criteria. Vessels: Aorta and inferior vena cava are normal in size. PELVIS: Pelvic Organs: Unremarkable. Bladder: Bladder is incompletely distended secondary to Ty catheter placement. Pelvic Nodes: No enlarged lymph nodes. Miscellaneous: Fat containing right inguinal hernia is present. Bones: Unremarkable. IMPRESSION: Postsurgical colectomy changes as above. Mildly dilated loop of proximal bowel from the anastomotic site with scattered loops of more proximal small bowel. Overall appearance is suggestive ileus/developing partial small bowel obstruction. No perforation. Dictated by: Tahmina Alvarez M.D. on 06/18/2021 at 19:44 Approved by: Tahmina Alvarez M.D. on 06/18/2021 at 19:55
[2021-06-18 18:31] LABS: Add Manual Diff / Slide Review NO; Basophils Absolute Auto 0 /uL (0-100); Basophils Percent Auto 0.1 % (0-2); Eosinophils Absolute Auto 0 /uL (0-450); Hematocrit 32.4 % (36-46); Hemoglobin 11.1 g/dL (12.0-16.0); Lymphocytes Absolute Auto 1100 /uL (1100-4500); Mean Corpuscular HGB Conc 34.3 % (30-36); Mean Corpuscular Hemoglobin 32.4 PG (26-34); Mean Corpuscular Volume 94.6 fL (80-100); Monocytes Absolute Auto 600 /uL (0-900); Neutrophils Absolute Auto 7700 /uL (1500-7000); Neutrophils Percent Auto 81.9 % (50-75); Platelet Count 227 X10^3/uL (150-400); Red Blood Cell Count 3.42 X10^6/uL (4.0-5.2); Red Cell Distribution Width 15.3 % (11.6-14.8); White Blood Cell Count 9.5 X10^3/uL (4.5-11.0)
[2021-06-18] MEDS: HYDROMORPHONE 0.5 MG INJ IV (18:33)
[2021-06-18] MEDS: ONDANSETRON 4 MG/2 ML INJ IV ×3 (18:33→21:56)
[2021-06-18] MEDS: SODIUM CHLORIDE 0.9% 500 ML 1000 ML IV ×2 (18:34→20:30)
[2021-06-18 18:42] LABS: Amylase 158 U/L (30-110); Lactate (Lactic Acid) 1.4 mmol/L (0.7-2.1)
[2021-06-18 18:43] LABS: Alanine Aminotransferase 14 IU/L (<35); Albumin 3.8 g/dL (3.5-5.0); Albumin Globulin Ratio 1.4 (1.0-2.8); Alkaline Phosphatase 62 U/L (38-126); Aspartate Aminotransferase 18 IU/L (14-36); BUN Creatinine Ratio 29.2 (6-22); Bilirubin Total 0.4 mg/dL (0.2-1.3); Blood Urea Nitrogen 21 mg/dL (7-17); Calcium 9.2 mg/dL (8.4-10.2); Carbon Dioxide 32 mmol/L (22-32); Chloride 96 mmol/L (98-107); Estimated Glomerular Filt Rate > 60.0 mL/min (>60); Globulin 2.8 g/dL (1.7-4.1); Glucose 108 mg/dL (80-110); HEMOLYSIS < 15 (0-50); Lipase 323 U/L (23-300); Potassium 4.4 mmol/L (3.4-5.1); Sodium 131 mmol/L (137-145); Total Protein 6.6 g/dL (6.3-8.2)
[2021-06-18 18:52] LABS: Creatine Kinase < 20 U/L (30-135)
[2021-06-18 19:05] LABS: Troponin I < 0.012 ng/mL (0.01-0.034)
[2021-06-18 20:22] LABS: COVID19 - ADMIT (NP swab/PCR) Negative (Negative)
--- NOTE | 2021-06-18 21:38 | P.HP_ITS ---
History of Present Illness History of Present Illness Date Patient Seen: 06/18/21 Time Patient Seen: 21:15 Chief complaint: Abd pain, suspected ileus Narrative: Shikha Watkins is a 70 y.o. female with PMH of ulcerative colitis s/p subtotal colectomy with ileoanal pouch, Ellie fundoplication, small bowel fistula, multiple surgeries for adhesive disease, recent exploratory laparotomy last month at [facility] for free air with no source found who presents to the hospital with abdominal pain, nausea and limited vomiting. She was admitted and discharged from this facility on May 28 discharged on June 06 respectively for a similar presentation. She was had sudden onset of abdominal cramping and nausea. She is passing gas, she has had a bowel movement that is thin. No blood, no and small amounts of vomit. Denies fevers/chills. She has had an episode of pancreatitis in the past and never found out what the cause was. She has been at [facility], does not want to return and wants to be able to return home. In the ED workup was done, vitals were unremarkable. Labs notable for WBC 9.5, hemoglobin and hematocrit were 11.1 and 32.4 respectively, sodium 131, creatinine 0.72,Bilirubin 0.4, ast/alt 29/14. Albumin 3.8. Lipase 323 which has been trending down since her prior admissions. CT of chest, abdomem, pelvis reported ? Postsurgical colectomy changes as above.? Mildly dilated loop of proximal bowel from the anastomotic site with scattered loops of more proximal small bowel.? Overall appearance is suggestive ileus/developing partial small bowel obstruction.? No perforation. She was given IV fluid and pain medications in the ED, General surgery was consulted and she was admitted for further evaluation and treatment. Patient History Medical History (Updated 06/18/21 @ 22:39 by ADOLPH Lora) Generalized weakness Small bowel obstruction Surgical History (Updated 06/18/21 @ 22:39 by ADOLPH Lora) H/O thyroidectomy Family & Social History Family History Mother Diabetes mellitus Heart disease Father Diabetes mellitus Heart disease Brother Myocardial infarction CVA (cerebral vascular accident) Other Hypertension Social History: household members spouse Prior Living Arrangements House Safety & Behavioral: Feels Safe in Current Yes Environment Been Physically Hurt or No Threatened By a Person Suicidal Ideation Description None Suicide Plan Description No Plan Tobacco & Substance use: Smoking Status Never smoker alcohol intake former alcohol intake frequency 0-2 drinks per day Substance Use Type does not use Meds Home Medications and Allergies Home Medications Medication Instructions Recorded Confirmed Type albuterol sulfate 90 mcg/actuation 2 puff INH Q4HP PRN #0 04/17/16 06/18/21 History aerosol inhaler (Ventolin HFA) divalproex 500 mg tablet,extended 1,000 mg PO HS #0 04/17/16 06/18/21 History release 24 hr lamotrigine 200 mg tablet 400 mg PO QDAY #0 04/17/16 06/18/21 History (Lamictal) levothyroxine 75 mcg tablet 0.075 mg PO QDAY #0 04/17/16 06/18/21 History (Synthroid) losartan 25 mg tablet 25 mg PO QDAY #0 04/17/16 06/18/21 History acetaminophen 500 mg tablet 1,000 mg PO Q6HP PRN 05/28/21 06/18/21 History (Tylenol Extra Strength) dexamethasone 4 mg tablet 4 mg PO BIDWM #6 tab 06/06/21 06/18/21 Rx famotidine 20 mg tablet (Pepcid AC) 20 mg PO DAILY #60 tab 06/06/21 06/18/21 Rx gabapentin 300 mg capsule 300 mg PO TID #120 cap 06/06/21 06/18/21 Rx melatonin 3 mg tablet 6 mg PO BEDTIME #90 tab 06/06/21 06/18/21 Rx methocarbamol 500 mg tablet 500 mg PO TID #90 tab 06/06/21 06/18/21 Rx metoclopramide HCl 5 mg tablet 5 mg PO AC #90 tab 06/06/21 06/18/21 Rx oxycodone 5 mg tablet 5 mg PO Q6H PRN #20 tab 06/06/21 06/18/21 Rx polyethylene glycol 3350 17 gram 17 g PO BID #30 ea 06/06/21 06/18/21 Rx oral powder packet sucralfate 1 gram tablet 1 gm PO ACHS #120 tab 06/06/21 06/18/21 Rx tramadol 50 mg tablet 50 mg PO TID #90 tab 06/06/21 06/18/21 Rx trazodone 50 mg tablet 50 mg PO BEDTIME #90 tab 06/06/21 06/18/21 Rx Allergies Allergy/AdvReac Type Severity Reaction Status Date / Time butorphanol Allergy Unknown Verified 06/18/21 18:33 Influenza Virus Vaccines Allergy Unknown ITCHING, Verified 06/18/21 18:33 BAD REACTION meperidine Allergy Unknown Verified 06/18/21 18:33 pneumococcal vaccine Allergy Unknown Verified 06/18/21 18:33 quetiapine Allergy Unknown Verified 06/18/21 18:33 shellfish derived Allergy Unknown Verified 06/18/21 18:33 neuroleptics AdvReac Unknown PT STATES Uncoded 09/27/17 12:31 HAD REALLY BAD REACTION, UNABLE TO STATE WHAT Review of Systems Review of Systems ROS: Yes All systems reviewed with the patient and are negative except as otherwise documented Exam Vital Signs (past 8 hours): - 06/18/21 16:56 06/18/21 16:57 06/18/21 17:00 Temperature 98.8 F Pulse Rate 62 61 Respiratory Rate 16 20 Blood Pressure 184/93 H 176/84 H Pulse Oximetry 100 100 06/18/21 17:30 06/18/21 18:00 06/18/21 18:28 Temperature Pulse Rate 58 L 56 L 62 Respiratory Rate Blood Pressure 196/93 H Pulse Oximetry 99 100 100 06/18/21 18:30 06/18/21 19:00 06/18/21 19:16 Temperature Pulse Rate 63 56 L 59 L Respiratory Rate 7 L 13 Blood Pressure 191/88 H 186/81 H Pulse Oximetry 100 99 100 06/18/21 19:30 06/18/21 20:00 06/18/21 20:30 Temperature Pulse Rate 59 L 55 L 58 L Respiratory Rate 16 18 Blood Pressure 145/80 H Pulse Oximetry 100 99 99 06/18/21 21:01 Temperature 97.6 F Pulse Rate 60 Respiratory Rate 16 Blood Pressure 168/71 H Pulse Oximetry 100 Oxygen Delivery Method Room Air Oxygen Flow Rate 0 Narrative Exam Narrative: Gen: Alert, oriented, cachectic appearing 70 y.o. female, appears uncomfortable HEENT: normocephalic, atraumatic, conjunctiva clear, sclera non-icteric, oral mucosa pink and moist Neck: line in left IJ. supple, full ROM, no JVD, trachea is midline Resp: Lungs CTA, non-labored breathing CV: RRR, no murmur or rubs Abd: soft, has a healed tube scar right lower quadrant, is tender but with no swelling or erythema, hypoactive BTs Skin: no lesions or rashes, dry and intact Neuro: Alert and oriented X 4 w/no focal deficits. Speech clear and coherent. Extremities: moves all 4 extremities, is ambulatory, negative Terri?s sign Psyche: normal mood and affect. Objective Labs Result Diagrams: 06/18/21 18:25 06/18/21 18:25 Labs: Laboratory Results - last 24 hr 06/18/21 06/18/21 06/18/21 18:25 18:25 18:25 WBC 9.5 RBC 3.42 L Hgb 11.1 L Hct 32.4 L MCV 94.6 MCH 32.4 MCHC 34.3 RDW 15.3 H Plt Count 227 Neut % (Auto) 81.9 H Lymph % (Auto) 12.0 L [place] % (Auto) 6.0 Eos % (Auto) 0.0 L Baso % (Auto) 0.1 Neut # (Auto) 7700 H Lymph # (Auto) 1100 [place] # (Auto) 600 Eos # (Auto) 0 Baso # (Auto) 0 Sodium Potassium Chloride Carbon Dioxide BUN Creatinine Estimated GFR BUN/Creatinine Ratio Glucose Lactate 1.4 Calcium Total Bilirubin AST ALT Alkaline Phosphatase Total Creatine Kinase CK-MB (CK-2) CK-MB (CK-2) Rel Index Troponin I Total Protein Albumin Globulin Albumin/Globulin Ratio Amylase 158 H Lipase SARS-CoV-2 (PCR) 06/18/21 06/18/21 06/18/21 18:25 18:25 19:30 WBC RBC Hgb Hct MCV MCH MCHC RDW Plt Count Neut % (Auto) Lymph % (Auto) [place] % (Auto) Eos % (Auto) Baso % (Auto) Neut # (Auto) Lymph # (Auto) [place] # (Auto) Eos # (Auto) Baso # (Auto) Sodium 131 L Potassium 4.4 Chloride 96 L Carbon Dioxide 32 BUN 21 H Creatinine 0.72 Estimated GFR > 60.0 BUN/Creatinine Ratio 29.2 H Glucose 108 Lactate Calcium 9.2 Total Bilirubin 0.4 AST 18 ALT 14 Alkaline Phosphatase 62 Total Creatine Kinase < 20 L CK-MB (CK-2) TNP CK-MB (CK-2) Rel Index TNP Troponin I < 0.012 Total Protein 6.6 Albumin 3.8 Globulin 2.8 Albumin/Globulin Ratio 1.4 Amylase Lipase 323 H SARS-CoV-2 (PCR) Negative Assessment & Plan Assessment & Plan narrative: Shikha Watkins will be admitted to the inpatient service for medical management of a recurrant ileus. 1. Abdominal pain due to developing small bowel obstruction, acute, and present on admission * Dr. Camargo, general surgery has been consulted * she remains nauseated with abdominal pain * NPO except medics * NS at 125 ml/hour * Ty placed in the ED * Dietary consult ordered * IV morphine for pain * IV zofran and reglan for nausea/vomiting * Recent ex-lap for free air showed no etiology or evidence of perforation 2. Elevated lipase due to pancreatitis, resolving * divalproex is commonly associated with pancreatitis, and can occur in delayed cases * hold divalproex 3. Hyponatremia with a sodium of 131 * NS at 125 ml/hour * monitor daily 4. Acalculus cholecystitis, appears to be chronic * CT indiated that The gallbladder wall continues to be somewhat irregular with minimal fluid in the gallbladder fossa, decreased compared to prior exam. 5. Anemia of chronic disease * trend daily * H&H currently stable 6. Protein calorie malnutrition * dietary consult 7. Bipolar disorder * continue lamictal 8. Hypothyroidism * continue home dose of levothyroxine 9. Hypertension * hold anti-hypertensives for now VTE Prophylaxis: Wells risk score 1.5 Enoxaparin 40 mg subQ once daily Bilateral SCDs Patient is admitted to the inpatient service due to the severity of disease, risks of further disease progression and this stay is expected to exceed 2 midnights. FEN: IV fluids: NS at 125 ml/hour, diet: NPO except meds, labs: CBC, C/BMP, liver enzymes, Mag, PT/INR Consultants Dr. Camargo, General Surgery, care and involvement in the patient?s care is appreciated. Dispo: Patient wishes to return to her home rather than rehab Code status: Full code as discussed with the patient who identifies her as her surrogate and POA. [X] I have utilized all available immediate resources to obtain, update, or review of the patient's current medications COVID-19 COVID-19 status: Negative Result date/Date tested (Pos, Neg/Pending): 06/18/21 Time Spent With Patient Critical Care time: I spent a total of [] minutes of critical care time on this patient's care today; this time is exclusive of procedural time. Scores Wells' Criteria for PE Clinical signs and symptoms of DVT: No PE is #1 Dx or equally likely: No Heart rate > 100: No Immobilization at least 3 days or surg in previous 4 weeks: Yes History of PE or DVT: No Hemoptysis: No Malignancy w/Treatment within 6 months or palliative: No Wells' PE Score total: 1.5 Quality VTE Deep Vein Thrombosis/Pulmonary Embolism Present on Admission: No MIPS - Admit I confirm the patient?s Advance Care Plan is present, Code status is documented, Surrogate decision maker is in patient?s record [If Yes, STOP here]: Yes MIPS - DC The patient has current or prior documentation of left ventricular ejection fraction (LVEF) less than 40%, or moderate or severely depressed left vent ricular systolic function.: No
[2021-06-18] MEDS: SODIUM CHLORIDE 0.9% 1,000 ML 125 ML IV (21:40)
[2021-06-18 21:48] LABS: Alanine Aminotransferase 14 IU/L (<35); Albumin 3.8 g/dL (3.5-5.0); Albumin Globulin Ratio 1.4 (1.0-2.8); Alkaline Phosphatase 60 U/L (38-126); Aspartate Aminotransferase 29 IU/L (14-36); Bilirubin Total 0.4 mg/dL (0.2-1.3); Bilirubin Unconjugated 0.3 mg/dL (0.0-1.1); Globulin 2.8 g/dL (1.7-4.1); HEMOLYSIS < 15 (0-50); Total Protein 6.6 g/dL (6.3-8.2)
[2021-06-18] MEDS: MORPHINE 2 MG/ML INJ IV (21:55)
[2021-06-19] VITALS (7 sets, daily range): BP systolic 124–187; BP diastolic 63–77; PULSE 54–76; RESP 13–17; TEMP 36.2–36.9; O2SAT 97–100
[2021-06-19] MEDS: METOCLOPRAMIDE 10 MG/2 ML INJ 5 MG IV ×2 (02:05→09:42)
[2021-06-19] MEDS: MORPHINE 2 MG/ML INJ IV ×2 (02:06→06:51)
[2021-06-19] MEDS: SODIUM CHLORIDE 0.9% 1,000 ML 125 ML IV (02:35)
--- NOTE | 2021-06-19 03:27 | PC.NURSE ---
Patient arrived to AC unit at 20:45. Alert and oriented x 4, able to make needs known. Oriented to room and call light. Ty placed in ER, draining clear, yellow urine. NPO except medications. NS @ 125/hour. Spouse present.
[2021-06-19] MEDS: ONDANSETRON 4 MG/2 ML INJ IV ×2 (06:51→12:22)
--- NOTE | 2021-06-19 07:35 | PC.NURSE ---
Unable to draw labs, per Dr. Thomson, ok to wait for lab to draw.
[2021-06-19] MEDS: ENOXAPARIN 40 MG/0.4 ML SYRINGE SUBCUT (08:42)
[2021-06-19] MEDS: LEVOTHYROXINE 75 MCG TABLET PO (08:42)
[2021-06-19] MEDS: PANTOPRAZOLE 40 MG VIAL IV (08:42)
[2021-06-19] MEDS: LOSARTAN 25 MG TABLET PO (08:42)
[2021-06-19] MEDS: lamoTRIgine 100 MG TABLET 400 MG PO (08:42)
--- NOTE | 2021-06-19 10:18 | CM.DANOTE ---
DCP: Case received, EMR reviewed and met with patient. Introduced self and role. Was able to obtain information regarding patient's baseline activity level prior to hospitalization, as well as her current living situation. DCP assessment completed with information currently available. Patient is a 70 year old female who admitted yesterday evening to the care of the hospitalist team. PCP: Dr. Davison (At [facility]). Payer: Medicare/[employer]. Patient came to the hospital via ambulance from [facility]. Patient had some increased abdominal pain and nausea. She is here for small bowel obstruction. She will have a surgery consult today. Patient has history of colitis-ileoanal pouch. Met with patient in her room. She is alert and oriented. She was complaining of nausea. She indicated, she was getting ready to discharge from [facility], and then became sick. Patient had been here at the hospital prior to [facility] with pancreatitis, and had gone to [facility]. Called [facility] and spoke to [place]. Confirmed with her that patient was expected to discharge from their facility at 11:00. [place] stated, if need be, they can take her back, but not today. Patient wants to go home. Confirmed that she and her spouse, Willard Vela, reside in [place]. She indicated, she has two canes that she uses. Her primary care provider is in [place], and her and her spouse take the [employer]. She does not drive, but takes paratransit for transport. Discussed home health, and she is interested in having a nurse come out to the home if needed. Asked hospitalist for P.T. orders, which he gave, and placed orders. P: DCP to continue to follow. Plan at this time is home with home health. Will need to see how she does with surgery consult, and P.T. Jo Almeida RN/[employer] Discharge Planning/Care Management CM Discharge Assessment Start: 06/19/21 10:13 Freq: Status: Active Protocol: Document 06/19/21 10:13 (Rec: 06/19/21 10:17 [email or web address]) Discharge Planning Assessment Assigned Platen Drier Operator Jo Almeida RN/[employer] Advance Directives? No History Provided By Patient,Medical Record Prior Living Arrangements House Household Members spouse Type of transporation used prior to Relies on Others admit Willing to Return to Facility? No: Does not want to go back to [facility] Independent with ADL's Yes Is patient alert and oriented? Yes Caregiver for Another No Patient/Family Preference Detention Facility,Home with Home Health Comment Does not want to go back to [facility], wants home. Discharge Plan Home with Home Health Referrals Initiated Other Additional Comment Will see how she does with P.T Lb Whiteboard Updated in Patient Room with Yes name and ext. # of Platen Drier Operator Review Status In Process Next Review Type Continued Stay Review
[2021-06-19 10:24] LABS: Add Manual Diff / Slide Review NO; Basophils Absolute Auto 0 /uL (0-100); Basophils Percent Auto 0.4 % (0-2); Eosinophils Absolute Auto 0 /uL (0-450); Eosinophils Percent Auto 0.3 % (2-4); Hematocrit 38.5 % (36-46); Hemoglobin 12.7 g/dL (12.0-16.0); Lymphocytes Absolute Auto 3300 /uL (1100-4500); Lymphocytes Percent Auto 30.6 % (25-40); Monocytes Absolute Auto 1000 /uL (0-900); Neutrophils Absolute Auto 6400 /uL (1500-7000); Neutrophils Percent Auto 59.7 % (50-75); Platelet Count 280 X10^3/uL (150-400); Red Blood Cell Count 3.97 X10^6/uL (4.0-5.2); Red Cell Distribution Width 15.7 % (11.6-14.8); White Blood Cell Count 10.7 X10^3/uL (4.5-11.0)
[2021-06-19 10:34] LABS: Prothrombin Time 11.3 SECONDS (10.1-12.7)
[2021-06-19 10:41] LABS: BUN Creatinine Ratio 23.6 (6-22); Blood Urea Nitrogen 17 mg/dL (7-17); C-Reactive Protein Quant < 0.5 mg/dL (<1.0); Calcium 9.1 mg/dL (8.4-10.2); Carbon Dioxide 26 mmol/L (22-32); Chloride 101 mmol/L (98-107); Estimated Glomerular Filt Rate > 60.0 mL/min (>60); Glucose 79 mg/dL (80-110); Magnesium 2.1 mg/dL (1.6-2.3); Potassium 4.1 mmol/L (3.4-5.1); Sodium 134 mmol/L (137-145)
[2021-06-19 10:44] LABS: Prealbumin 35.5 mg/dL (17.6-36.0)
[2021-06-19 10:46] LABS: HEMOLYSIS 183 (0-50)
[2021-06-19] MEDS: SIMETHICONE 80 MG TABLET PO ×2 (10:51→17:03)
--- NOTE | 2021-06-19 11:16 | PM.CN ---
History of Present Illness Consult details Date Patient Seen: 06/19/21 Time Patient Seen: 11:16 Chief complaint: Abd pain, suspected ileus Narrative: 48hrs of nausea and vomiting still passing stool and flatus. Sudden onset. Recovering from Xlap with BEC[facility] at [facility]. Recent pancreatitis per labs, no seen then or now on CT. CT I reviewed and there is no obstruction, the rectal pouch is full. The stomach is contracted but could be inflamed. She also complains of not being able to swallow. Meds Home Medications and Allergies Home Medications Medication Instructions Recorded Confirmed Type albuterol sulfate 90 mcg/actuation 2 puff INH Q4HP PRN #0 04/17/16 06/18/21 History aerosol inhaler (Ventolin HFA) divalproex 500 mg tablet,extended 1,000 mg PO HS #0 04/17/16 06/18/21 History release 24 hr lamotrigine 200 mg tablet 400 mg PO QDAY #0 04/17/16 06/18/21 History (Lamictal) levothyroxine 75 mcg tablet 0.075 mg PO QDAY #0 04/17/16 06/18/21 History (Synthroid) losartan 25 mg tablet 25 mg PO QDAY #0 04/17/16 06/18/21 History acetaminophen 500 mg tablet 1,000 mg PO Q6HP PRN 05/28/21 06/18/21 History (Tylenol Extra Strength) dexamethasone 4 mg tablet 4 mg PO BIDWM #6 tab 06/06/21 06/18/21 Rx famotidine 20 mg tablet (Pepcid AC) 20 mg PO DAILY #60 tab 06/06/21 06/18/21 Rx gabapentin 300 mg capsule 300 mg PO TID #120 cap 06/06/21 06/18/21 Rx melatonin 3 mg tablet 6 mg PO BEDTIME #90 tab 06/06/21 06/18/21 Rx methocarbamol 500 mg tablet 500 mg PO TID #90 tab 06/06/21 06/18/21 Rx metoclopramide HCl 5 mg tablet 5 mg PO AC #90 tab 06/06/21 06/18/21 Rx oxycodone 5 mg tablet 5 mg PO Q6H PRN #20 tab 06/06/21 06/18/21 Rx polyethylene glycol 3350 17 gram 17 g PO BID #30 ea 06/06/21 06/18/21 Rx oral powder packet sucralfate 1 gram tablet 1 gm PO ACHS #120 tab 06/06/21 06/18/21 Rx tramadol 50 mg tablet 50 mg PO TID #90 tab 06/06/21 06/18/21 Rx trazodone 50 mg tablet 50 mg PO BEDTIME #90 tab 06/06/21 06/18/21 Rx Allergies Allergy/AdvReac Type Severity Reaction Status Date / Time butorphanol Allergy Unknown Verified 06/18/21 18:33 Influenza Virus Vaccines Allergy Unknown ITCHING, Verified 06/18/21 18:33 BAD REACTION meperidine Allergy Unknown Verified 06/18/21 18:33 pneumococcal vaccine Allergy Unknown Verified 06/18/21 18:33 quetiapine Allergy Unknown Verified 06/18/21 18:33 shellfish derived Allergy Unknown Verified 06/18/21 18:33 neuroleptics AdvReac Unknown PT STATES Uncoded 09/27/17 12:31 HAD REALLY BAD REACTION, UNABLE TO STATE WHAT Review of Systems Review of Systems ROS: Yes All systems reviewed with the patient and are negative except as otherwise documented Exam Vital Signs (past 8 hours): - 06/19/21 05:20 06/19/21 07:20 Temperature 97.4 F L 97.1 F L Pulse Rate 59 L 54 L Respiratory Rate 16 13 Blood Pressure 187/76 H 164/76 H Pulse Oximetry 100 Oxygen Delivery Method Room Air Oxygen Flow Rate 0 Const General: ill appearing Nutritional Appearance: malnourished Orientation: alert and oriented x3 HENMT Head: normocephalic and atraumatic Eyes Sclera: sclerae normal Neck Neck: trachea midline Chest Chest: normal inspection of the chest Other: multiple scars Resp Effort & Inspection: normal respiratory effort and able to speak in complete sentences Cardio Rate: regular rate Rhythm: regular rhythm GI Palpation: soft Other: Mild epigastric tenderness Skin General: atrophy and dry skin Lesions: no lesions Neuro General: patient alert, patient awake and patient oriented x3 Cognition: normal cognition Psych Mood: irritable mood Attitude: cooperative Judgment: judgment good Objective Labs Result Diagrams: 06/19/21 10:00 06/19/21 10:00 Labs: Laboratory Results - last 24 hr 06/18/21 06/18/21 06/18/21 18:25 18:25 18:25 WBC 9.5 RBC 3.42 L Hgb 11.1 L Hct 32.4 L MCV 94.6 MCH 32.4 MCHC 34.3 RDW 15.3 H Plt Count 227 Neut % (Auto) 81.9 H Lymph % (Auto) 12.0 L Coffey % (Auto) 6.0 Eos % (Auto) 0.0 L Baso % (Auto) 0.1 Neut # (Auto) 7700 H Lymph # (Auto) 1100 Coffey # (Auto) 600 Eos # (Auto) 0 Baso # (Auto) 0 PT INR Sodium Potassium Chloride Carbon Dioxide BUN Creatinine Estimated GFR BUN/Creatinine Ratio Glucose Lactate 1.4 Calcium Magnesium Total Bilirubin Conjugated Bilirubin Unconjugated Bilirubin AST ALT Alkaline Phosphatase Total Creatine Kinase CK-MB (CK-2) CK-MB (CK-2) Rel Index Troponin I C-Reactive Protein Total Protein Albumin Globulin Albumin/Globulin Ratio Prealbumin Amylase 158 H Lipase SARS-CoV-2 (PCR) 06/18/21 06/18/21 06/18/21 18:25 18:25 18:25 WBC RBC Hgb Hct MCV MCH MCHC RDW Plt Count Neut % (Auto) Lymph % (Auto) Coffey % (Auto) Eos % (Auto) Baso % (Auto) Neut # (Auto) Lymph # (Auto) Coffey # (Auto) Eos # (Auto) Baso # (Auto) PT INR Sodium 131 L Potassium 4.4 Chloride 96 L Carbon Dioxide 32 BUN 21 H Creatinine 0.72 Estimated GFR > 60.0 BUN/Creatinine Ratio 29.2 H Glucose 108 Lactate Calcium 9.2 Magnesium Total Bilirubin 0.4 0.4 Conjugated Bilirubin 0.0 Unconjugated Bilirubin 0.3 AST 18 29 ALT 14 14 Alkaline Phosphatase 62 60 Total Creatine Kinase < 20 L CK-MB (CK-2) TNP CK-MB (CK-2) Rel Index TNP Troponin I < 0.012 C-Reactive Protein Total Protein 6.6 6.6 Albumin 3.8 3.8 Globulin 2.8 2.8 Albumin/Globulin Ratio 1.4 1.4 Prealbumin Amylase Lipase 323 H SARS-CoV-2 (PCR) 06/18/21 06/19/21 06/19/21 19:30 10:00 10:00 WBC 10.7 RBC 3.97 L Hgb 12.7 Hct 38.5 MCV 97.0 MCH 32.0 MCHC 33.0 RDW 15.7 H Plt Count 280 Neut % (Auto) 59.7 D Lymph % (Auto) 30.6 Coffey % (Auto) 9.0 Eos % (Auto) 0.3 L Baso % (Auto) 0.4 Neut # (Auto) 6400 Lymph # (Auto) 3300 Coffey # (Auto) 1000 H Eos # (Auto) 0 Baso # (Auto) 0 PT INR Sodium Potassium Chloride Carbon Dioxide BUN Creatinine Estimated GFR BUN/Creatinine Ratio Glucose Lactate Calcium Magnesium Total Bilirubin Conjugated Bilirubin Unconjugated Bilirubin AST ALT Alkaline Phosphatase Total Creatine Kinase CK-MB (CK-2) CK-MB (CK-2) Rel Index Troponin I C-Reactive Protein < 0.5 Total Protein Albumin Globulin Albumin/Globulin Ratio Prealbumin 35.5 Amylase Lipase SARS-CoV-2 (PCR) Negative 06/19/21 06/19/21 10:00 10:00 WBC RBC Hgb Hct MCV MCH MCHC RDW Plt Count Neut % (Auto) Lymph % (Auto) Coffey % (Auto) Eos % (Auto) Baso % (Auto) Neut # (Auto) Lymph # (Auto) Coffey # (Auto) Eos # (Auto) Baso # (Auto) PT 11.3 INR 1.0 Sodium 134 L Potassium 4.1 Chloride 101 Carbon Dioxide 26 BUN 17 Creatinine 0.72 Estimated GFR > 60.0 BUN/Creatinine Ratio 23.6 H Glucose 79 L Lactate Calcium 9.1 Magnesium 2.1 Total Bilirubin Conjugated Bilirubin Unconjugated Bilirubin AST ALT Alkaline Phosphatase Total Creatine Kinase CK-MB (CK-2) CK-MB (CK-2) Rel Index Troponin I C-Reactive Protein Total Protein Albumin Globulin Albumin/Globulin Ratio Prealbumin Amylase Lipase SARS-CoV-2 (PCR) REPLACED BY [facility] Medical History (Updated 06/18/21 @ 22:39 by ADOLPH Lora) Generalized weakness Small bowel obstruction Surgical History (Updated 06/18/21 @ 22:39 by ADOLPH Lora) H/O thyroidectomy Family History Mother Diabetes mellitus Heart disease Father Diabetes mellitus Heart disease Brother Myocardial infarction CVA (cerebral vascular accident) Other Hypertension Social History household members: spouse Tobacco & Substance Use Smoking Status: Never smoker alcohol intake: former Assessment & Plan Assessment & Plan narrative: No evidence of ileus/obstruction, elevated pancreatic enyzmes are not reflect radiographically as pancreatitis. Gastritis and possible viral enteritis is possible. Agree with switch to PPI. Trial of scop patch for nausea. COVID-19 COVID-19 status: Negative Time Spent With Patient Time with patient: 30 to 49 minutes with 50% spent counseling/coordinating care Critical Care time: I spent a total of [] minutes of critical care time on this patient's care today; this time is exclusive of procedural time.
[2021-06-19] MEDS: SCOPOLAMINE 1 PATCH TOP (11:45)
[2021-06-19] MEDS: PROMETHAZINE 25 MG TABLET PO (11:46)
--- NOTE | 2021-06-19 12:10 | PT-IP ANOTE ---
PT reviews chart and checks in on pt. Pt has emesis bag close to her face. She refuses PT at this time. Will con't efforts next date.
[2021-06-19] MEDS: OXYCODONE IR 5 MG TABLET PO ×2 (13:29→17:03)
[2021-06-19] MEDS: LORazepam 2 MG/ML INJ 0.5 MG IV (15:20)
--- NOTE | 2021-06-19 16:14 | P.PN_ITS ---
Subjective Subjective Date Patient Seen: 06/19/21 Time Patient Seen: 08:00 Interval history: Today she says she feels better. Still nauseous. She said she thought she was going to yesterday but felt better after passing gas. She had a bowel movement yesterday. She is tolerating clears this morning Exam Vital Signs (past 8 hours): - 06/19/21 12:00 Temperature 97.8 F Pulse Rate 63 Respiratory Rate 13 Blood Pressure 160/65 H Pulse Oximetry 99 Oxygen Delivery Method Room Air Oxygen Flow Rate 0 Narrative Exam Narrative: Gen: no acute distress Resp: clear bilaterally CV: regular rate rhythm with no murmurs ABD: soft, nontender Extremities: moves all 4 extremities Psych: irritable Objective Labs Result Diagrams: 06/19/21 10:00 06/19/21 10:00 Labs: Laboratory Results - last 24 hr 06/18/21 06/18/21 06/18/21 18:25 18:25 18:25 WBC 9.5 RBC 3.42 L Hgb 11.1 L Hct 32.4 L MCV 94.6 MCH 32.4 MCHC 34.3 RDW 15.3 H Plt Count 227 Neut % (Auto) 81.9 H Lymph % (Auto) 12.0 L Pickett % (Auto) 6.0 Eos % (Auto) 0.0 L Baso % (Auto) 0.1 Neut # (Auto) 7700 H Lymph # (Auto) 1100 Pickett # (Auto) 600 Eos # (Auto) 0 Baso # (Auto) 0 PT INR Sodium Potassium Chloride Carbon Dioxide BUN Creatinine Estimated GFR BUN/Creatinine Ratio Glucose Lactate 1.4 Calcium Magnesium Total Bilirubin Conjugated Bilirubin Unconjugated Bilirubin AST ALT Alkaline Phosphatase Total Creatine Kinase CK-MB (CK-2) CK-MB (CK-2) Rel Index Troponin I C-Reactive Protein Total Protein Albumin Globulin Albumin/Globulin Ratio Prealbumin Amylase 158 H Lipase SARS-CoV-2 (PCR) 06/18/21 06/18/21 06/18/21 18:25 18:25 18:25 WBC RBC Hgb Hct MCV MCH MCHC RDW Plt Count Neut % (Auto) Lymph % (Auto) Pickett % (Auto) Eos % (Auto) Baso % (Auto) Neut # (Auto) Lymph # (Auto) Pickett # (Auto) Eos # (Auto) Baso # (Auto) PT INR Sodium 131 L Potassium 4.4 Chloride 96 L Carbon Dioxide 32 BUN 21 H Creatinine 0.72 Estimated GFR > 60.0 BUN/Creatinine Ratio 29.2 H Glucose 108 Lactate Calcium 9.2 Magnesium Total Bilirubin 0.4 0.4 Conjugated Bilirubin 0.0 Unconjugated Bilirubin 0.3 AST 18 29 ALT 14 14 Alkaline Phosphatase 62 60 Total Creatine Kinase < 20 L CK-MB (CK-2) TNP CK-MB (CK-2) Rel Index TNP Troponin I < 0.012 C-Reactive Protein Total Protein 6.6 6.6 Albumin 3.8 3.8 Globulin 2.8 2.8 Albumin/Globulin Ratio 1.4 1.4 Prealbumin Amylase Lipase 323 H SARS-CoV-2 (PCR) 06/18/21 06/19/21 06/19/21 19:30 10:00 10:00 WBC 10.7 RBC 3.97 L Hgb 12.7 Hct 38.5 MCV 97.0 MCH 32.0 MCHC 33.0 RDW 15.7 H Plt Count 280 Neut % (Auto) 59.7 D Lymph % (Auto) 30.6 Pickett % (Auto) 9.0 Eos % (Auto) 0.3 L Baso % (Auto) 0.4 Neut # (Auto) 6400 Lymph # (Auto) 3300 Pickett # (Auto) 1000 H Eos # (Auto) 0 Baso # (Auto) 0 PT INR Sodium Potassium Chloride Carbon Dioxide BUN Creatinine Estimated GFR BUN/Creatinine Ratio Glucose Lactate Calcium Magnesium Total Bilirubin Conjugated Bilirubin Unconjugated Bilirubin AST ALT Alkaline Phosphatase Total Creatine Kinase CK-MB (CK-2) CK-MB (CK-2) Rel Index Troponin I C-Reactive Protein < 0.5 Total Protein Albumin Globulin Albumin/Globulin Ratio Prealbumin 35.5 Amylase Lipase SARS-CoV-2 (PCR) Negative 06/19/21 06/19/21 10:00 10:00 WBC RBC Hgb Hct MCV MCH MCHC RDW Plt Count Neut % (Auto) Lymph % (Auto) Pickett % (Auto) Eos % (Auto) Baso % (Auto) Neut # (Auto) Lymph # (Auto) Pickett # (Auto) Eos # (Auto) Baso # (Auto) PT 11.3 INR 1.0 Sodium 134 L Potassium 4.1 Chloride 101 Carbon Dioxide 26 BUN 17 Creatinine 0.72 Estimated GFR > 60.0 BUN/Creatinine Ratio 23.6 H Glucose 79 L Lactate Calcium 9.1 Magnesium 2.1 Total Bilirubin Conjugated Bilirubin Unconjugated Bilirubin AST ALT Alkaline Phosphatase Total Creatine Kinase CK-MB (CK-2) CK-MB (CK-2) Rel Index Troponin I C-Reactive Protein Total Protein Albumin Globulin Albumin/Globulin Ratio Prealbumin Amylase Lipase SARS-CoV-2 (PCR) PFSH Medical History (Updated 06/18/21 @ 22:39 by ADOLPH Lora) Generalized weakness Small bowel obstruction Surgical History (Updated 06/18/21 @ 22:39 by ADOLPH Lora) H/O thyroidectomy Family History Mother Diabetes mellitus Heart disease Father Diabetes mellitus Heart disease Brother Myocardial infarction CVA (cerebral vascular accident) Other Hypertension Social History household members: spouse Smoking Status: Never smoker alcohol intake: former Assessment & Plan Assessment & Plan narrative: Ms. Watkins was admitted with abdominal pain 1. Abdominal pain due to developing small bowel obstruction, acute, and present on admission -patient was thought to possibly have ileus or partial sbo, however she is passing gas, had recent bowel movement, clinically has soft abdomen ----presentation is not consistent with ileus or sbo -lipase lower than last admission, no evidence of pancreatitis -suspect component of poor transit vs gastritis vs narcotic bowel -careful with IV opiates -IV PPI -surgery consulted -clear diet and advance as able -IV zofran, stop reglan -simethicone for gas discomfort 2. Hyponatremia with a sodium of 131 -stop IV fluid and encourage oral intake 3. Distended gallbladder -on CT scan appears much improved 4. Anemia of chronic disease -currently stable 5. Protein calorie malnutrition -dietary consult 6. Bipolar disorder -continue lamictal 7. Hypothyroidism -continue home dose of levothyroxine 8. Hypertension -hold anti-hypertensives for now Time Spent With Patient Critical Care time: I spent a total of [] minutes of critical care time on this patient's care today; this time is exclusive of procedural time. Quality VTE Deep Vein Thrombosis/Pulmonary Embolism Present on Admission: No
--- NOTE | 2021-06-19 17:15 | PC.NURSE ---
pt passing gas. no bowel movement yet. I gave her anitemetic meds but they were not very effective. Reglan did not work at all. notified provider. I gave her ativan and it reloved her nausea. percolone for pain management.
[2021-06-19] MEDS: MELATONIN 3 MG TABLET 6 MG PO (21:05)
[2021-06-20] MEDS: LORazepam 2 MG/ML INJ 0.5 MG IV (00:10)
[2021-06-20] MEDS: OXYCODONE IR 5 MG TABLET PO ×2 (02:15→20:55)
[2021-06-20 04:31] VITALS: BP 133/68; PULSE 70; RESP 16; TEMP 36.7; O2SAT 97
[2021-06-20 06:34] LABS: BUN Creatinine Ratio 18.3 (6-22); Blood Urea Nitrogen 15 mg/dL (7-17); Calcium 9.3 mg/dL (8.4-10.2); Carbon Dioxide 27 mmol/L (22-32); Chloride 103 mmol/L (98-107); Estimated Glomerular Filt Rate > 60.0 mL/min (>60); Glucose 83 mg/dL (80-110); HEMOLYSIS 33 (0-50); Potassium 3.6 mmol/L (3.4-5.1); Sodium 134 mmol/L (137-145)
[2021-06-20] MEDS: LEVOTHYROXINE 75 MCG TABLET PO (06:50)
[2021-06-20 07:07] VITALS: BP 140/73; PULSE 66; RESP 16; TEMP 36.5; O2SAT 100
[2021-06-20] MEDS: ENOXAPARIN 40 MG/0.4 ML SYRINGE SUBCUT (10:12)
[2021-06-20] MEDS: LOSARTAN 25 MG TABLET PO (10:13)
[2021-06-20] MEDS: PANTOPRAZOLE 40 MG VIAL IV (10:13)
[2021-06-20] MEDS: lamoTRIgine 100 MG TABLET 400 MG PO (10:13)
--- NOTE | 2021-06-20 11:14 | PM.PN.1 ---
Subjective Subjective Date Patient Seen: 06/20/21 Time Patient Seen: 11:14 Interval history: Positive flatus. No nausea or vomiting Exam Vital Signs (past 8 hours): - 06/20/21 04:31 06/20/21 07:07 Temperature 98.1 F 97.7 F Pulse Rate 70 66 Respiratory Rate 16 16 Blood Pressure 133/68 140/73 Pulse Oximetry 97 100 Oxygen Delivery Method Room Air Oxygen Flow Rate 0 Narrative Exam Narrative: General adult woman alert oriented no acute distress Abdomen soft nontender nondistended Objective Labs Result Diagrams: 06/19/21 10:00 06/20/21 05:35 Labs: Laboratory Results - last 24 hr 06/20/21 05:35 Sodium 134 L Potassium 3.6 Chloride 103 Carbon Dioxide 27 BUN 15 Creatinine 0.82 Estimated GFR > 60.0 BUN/Creatinine Ratio 18.3 Glucose 83 Calcium 9.3 PFSH Medical History (Updated 06/18/21 @ 22:39 by ADOLPH Lora) Generalized weakness Small bowel obstruction Surgical History (Updated 06/18/21 @ 22:39 by ADOLPH Lora) H/O thyroidectomy Family History Mother Diabetes mellitus Heart disease Father Diabetes mellitus Heart disease Brother Myocardial infarction CVA (cerebral vascular accident) Other Hypertension Social History household members: spouse Smoking Status: Never smoker alcohol intake: former Assessment & Plan Assessment & Plan narrative: 70-year-old female with a resolved ileus. -diet as tolerate -Surgery sign off. Please contact with questions/ Time Spent With Patient Critical Care time: I spent a total of [] minutes of critical care time on this patient's care today; this time is exclusive of procedural time. Quality VTE Deep Vein Thrombosis/Pulmonary Embolism Present on Admission: No
[2021-06-20 11:22] VITALS: BP 152/77; PULSE 66; RESP 16; TEMP 36.6; O2SAT 100
[2021-06-20] MEDS: LORazepam 1 MG TABLET PO ×2 (12:49→23:48)
--- NOTE | 2021-06-20 15:11 | CM.DPNOTE ---
DC Note Patient wants to go home. Cleared by surgery. DC order now in, met w/patient to review DCP Patient eager to return home w/spouse and agreeable to , no agency preference. Placed call to jay [facility]OPE[facility], JESSICA RN will not be available until 06.30.21. Placed call to alternative HH agency, [facility] ([facility] not go to [place]) could not get a hold of anyone at [facility] so gave referral to jay Faxed completed and signed F2F w/ H+P to j[facility]. DC Summary is not available at time of this note. IMM provided. Plan: DC home w/spouse and jay to eventually assist w/ RN/PT/OT. SANIA
--- NOTE | 2021-06-20 16:48 | PC.NURSE ---
Discharged by provider. As this technical publications writer was providing d/c education, spouse Willard stated he works during the day and Shikha will be left alone. Shikha has required SBA for ambulation and toileting. Willard states there is nobody that can come and stay with them. He is concerned about her mentation as she has become more confused later this afternoon. Upon neuro assessment this evening pt was unable to state she was in [facility] in [place] and was unable to state he birthday. canceled d/c. Pt agreeable to stay the night. and this RN discussed with pt and spouse about the need for in-home caregivers or an alternative living situation where more help is available.
[2021-06-20] MEDS: SUCRALFATE 1 GM TABLET PO (17:04)
[2021-06-20 18:04] VITALS: BP 143/91; PULSE 94; RESP 16; TEMP 36.8; O2SAT 96
--- NOTE | 2021-06-20 18:22 | PM.PN.1 ---
Subjective Subjective Date Patient Seen: 06/20/21 Interval history: PATIENT SEEN IN ROOM TODAY WITH HER PRESENT SHE APPEARS TO BE SUNDOWNING LACERATION OVER DEMENTIA REVIEW OF SYSTEM IS UNRELIABLE SHE WAS ALERT, AWAKE, NOT ORIENTED TO TIME AND PLACE Exam Vital Signs (past 8 hours): - 06/20/21 11:22 06/20/21 18:04 Temperature 97.9 F 98.2 F Pulse Rate 66 94 H Respiratory Rate 16 16 Blood Pressure 152/77 H 143/91 H Pulse Oximetry 100 96 Oxygen Delivery Method Room Air Oxygen Flow Rate 0 Narrative Exam Narrative: NO ACUTE DISTRESS. UNDERLYING DEMENTIA. VITAL SIGNS STABLE HEAD ATRAUMATIC NORMOCEPHALIC NECK : NO ADENOPATHY NO CAROTID BRUITS EYE: EOMI, PERRLA, NORMAL CONJUNCTIVA; NO JAUNDICE CHEST: REGULAR RATE. NO RUBS. PMI IS NON DISPLACED. NO MURMURS; NORMAL S1-S2 PULMONARY: DECREASED BS OVER THE BASES. MILD BIBASILAR CRACKLES NOTED; NO INCREASED DULLNESS TO PERCUSSION ABDOMEN: SOFT. NONTENDER. NONDISTENDED. BOWEL SOUNDS ARE PRESENT IN ALL 4 QUADRANTS. EXTREMITIES: NO CYANOSIS OR CLUBBING NOTED. NEURO: CRANIAL NERVES 2-12 GROSSLY INTACT. NO FOCAL NEUROLOGICAL DEFICIT NOTED. DEMENTIA MSK: NORMAL RANGE OF MOTION FOR AGE. NO JOINT EFFUSION. SKIN: FAIR SKIN TURGOR; NO ECCHYMOSIS. PSYCH : CALM. COOPERATIVE Objective Labs Result Diagrams: 06/19/21 10:00 06/20/21 05:35 Labs: Laboratory Results - last 24 hr 06/20/21 05:35 Sodium 134 L Potassium 3.6 Chloride 103 Carbon Dioxide 27 BUN 15 Creatinine 0.82 Estimated GFR > 60.0 BUN/Creatinine Ratio 18.3 Glucose 83 Calcium 9.3 PFSH Medical History (Updated 06/18/21 @ 22:39 by ADOLPH Lora) Generalized weakness Small bowel obstruction Surgical History (Updated 06/18/21 @ 22:39 by ADOLPH Lora) H/O thyroidectomy Family History Mother Diabetes mellitus Heart disease Father Diabetes mellitus Heart disease Brother Myocardial infarction CVA (cerebral vascular accident) Other Hypertension Social History household members: spouse Smoking Status: Never smoker alcohol intake: former Assessment & Plan Assessment & Plan narrative: PROBLEM LIST POSSIBLE SBO RESOLVED HYPONATREMIA. STABLE SODIUM LEVEL DEMENTIA WITH SUNDOWNING. BIPOLAR DISEASE PER HISTORY HYPERTENSION PER HISTORY PLAN ATTENDED TO DISCHARGE PATIENT TODAY PER HER REQUEST HOWEVER SHE IS UNABLE TO MAKE A FORMAL DECISION BECAUSE OF UNDERLYING DEMENTIA SPOKE TO AT LENGTH IN REGARD TO THE CASE PATIENT WILL BENEFIT TO STAY AT THE ALF FACILITY VERSUS SKILLED NURSING WILL SPEAK TO CASE MANAGEMENT IN REGARD TO POSSIBLE PLACEMENT TO SKILLED NURSING IF ABLE PATIENT REMAINED IN THE HOSPITAL OVERNIGHT REPEAT LABS IN THE MORNING ADDITIONAL MANAGEMENT PER CLINICAL COURSE Time Spent With Patient Critical Care time: I spent a total of [] minutes of critical care time on this patient's care today; this time is exclusive of procedural time. Quality VTE Deep Vein Thrombosis/Pulmonary Embolism Present on Admission: No
[2021-06-20] MEDS: FAMOTIDINE 20 MG TABLET PO (20:55)
[2021-06-20] MEDS: risperiDONE 0.25 MG TABLET PO (20:55)
[2021-06-20] MEDS: MELATONIN 3 MG TABLET 6 MG PO (20:55)
[2021-06-20] MEDS: OLANZapine 2.5 MG TABLET PO (20:55)
--- NOTE | 2021-06-20 22:02 | PC.NURSE ---
@[phone]~ This OCCUPATIONAL HEALTH COORDINATOR answers call light signaled by who reports unwitnessed fall in bathroom from toilet seat to ground. helped pt to toilet seat before using call light. Pt found to be alert and conversing, when asked she was able to state falling to her right side without hitting her head, and has pain of the upper right body. Pt was able to transfer from bathroom to bed with minimal assistance and without assisting devices. RN informed. Pt in bed with bed alarm on.
--- NOTE | 2021-06-20 23:06 | PC.NURSE ---
Addendum entered by Brenda Johnson R.N. 06/21/21 06:58: This nurse called pt's this am around 0620. Spouse state he took her cell phone with him and that he was going to be teaching piano lessons today and wasn't sure when he would be coming back to see patient. He said he would try to call her later on during the day. He was also suggesting that perhaps the reason why his is so confused is due to her taking too many different medications. Pt is now upset and is insisting she wants to go home. We were able to talk to patient and now she is back in bed. Bed alarm in place. Addendum entered by Brenda Johnson R.N. 06/21/21 06:27: Pt more alert this am at 0627. Pt knows her name but doesn't where she is and keeps asking for her Willard and her cell phone which we can't find. Addendum entered by Brenda Johnson R.N. 06/21/21 00:25: pt c/o pain to right side, no bruises noted. spoke to LATA Prather and pt will be getting x-ray of her right shoulder, arm and ribs. Spoke to pt about this x-ray and she is asking why am I getting x-rays. I told pt that is to make sure she didn't break anything during the fall. Original Note: at 1945, pt wanted to take his to a hotel. He stated she would get better sleep there. This nurse spoke to pt and told him to let us give pt her night medications and see how she does and that he would not be able to have assess to her medication while in a hotel. Pt was transfer into the recliner by the RADIO SALES ACCOUNT EXECUTIVE and chair alarm was in place. Pt was then transfered back to bed and be alarm in place. Pt has been alert to her name but confused to where she is. around 2414, bed alarm and call light went off. stated he took his to the bathroom and that he hear his fall and that the found his on the right side. By the time the RADIO SALES ACCOUNT EXECUTIVE made it to the patient's room pt was back in bed and didn't appear to have any injuries. LATA prather notified. Pt's went home for the night.
[2021-06-21 00:15] VITALS: BP 109/61; PULSE 64; TEMP 36.7; O2SAT 97
--- NOTE | 2021-06-21 00:20 | DI.RAD.S_ITS ---
PROCEDURE: XR HUMERUS RT 2V INDICATIONS: Fall TECHNIQUE: 2 views of the humerus were acquired. COMPARISON: [facility], CR, XR SHOULDER RT 1V, 06/21/2021, 0:25. [facility], CR, XR RIBS RT 2V, 06/21/2021, 0:38. FINDINGS: Bones: No fractures or dislocations. No suspicious bony lesions. Soft tissues: No suspicious soft tissue calcifications. IMPRESSION: 1. No fracture or dislocation of the right humerus. Dictated by: David Ferrer M.D. on 06/21/2021 at 1:05 Approved by: David Ferrer M.D. on 06/21/2021 at 1:07
--- NOTE | 2021-06-21 00:20 | DI.RAD.S_ITS ---
PROCEDURE: XR SHOULDER RT 1V INDICATIONS: Fall TECHNIQUE: 1 view of the shoulder were acquired. COMPARISON: None. FINDINGS: Bones: Single view of the right shoulder demonstrates no definite acute fracture or dislocation. There is an old healed right clavicular shaft fracture. Visualized ribs also demonstrate old healed fractures. Soft tissues: No suspicious soft tissue calcifications. IMPRESSION: 1. Limited study demonstrates no definite acute fracture or dislocation. 2. Old healed fractures of the right clavicular shaft and visualized right ribs. Dictated by: David Ferrer M.D. on 06/21/2021 at 1:01 Approved by: David Ferrer M.D. on 06/21/2021 at 1:02
--- NOTE | 2021-06-21 00:20 | DI.RAD.S_ITS ---
PROCEDURE: XR RIBS RT 2V INDICATIONS: Fall TECHNIQUE: Two views of the right ribs were acquired. COMPARISON: [facility], CR, XR CHEST 1V, 09/15/2019, 18:18. FINDINGS: Surgical changes and devices: None. Bones and chest wall: No definite acute displaced rib fracture. There are a few healed old right rib fractures. There is also a healed right clavicular shaft fracture. No suspicious bony lesions. Overlying soft tissues appear unremarkable. Lungs and pleura: The visualized lung appears clear. No pleural effusions or pneumothorax are visible. IMPRESSION: 1. No definite acute displaced rib fracture. If clinical concern persists, further evaluation may be obtained with CT. Dictated by: David Ferrer M.D. on 06/21/2021 at 1:02 Approved by: David Ferrer M.D. on 06/21/2021 at 1:04
[2021-06-21] MEDS: OXYCODONE IR 5 MG TABLET PO ×4 (02:00→22:20)
[2021-06-21] MEDS: LEVOTHYROXINE 75 MCG TABLET PO (05:39)
[2021-06-21 06:40] VITALS: BP 137/67; PULSE 78; RESP 14; TEMP 36.7; O2SAT 100
[2021-06-21] MEDS: SUCRALFATE 1 GM TABLET PO ×3 (08:03→21:40)
[2021-06-21] MEDS: MEMANTINE HCL 5 MG TABLET PO (09:09)
[2021-06-21] MEDS: lamoTRIgine 100 MG TABLET 400 MG PO (09:09)
[2021-06-21] MEDS: LOSARTAN 25 MG TABLET PO (09:09)
[2021-06-21] MEDS: FAMOTIDINE 20 MG TABLET PO (09:09)
[2021-06-21] MEDS: ENOXAPARIN 40 MG/0.4 ML SYRINGE SUBCUT (09:09)
[2021-06-21] MEDS: SODIUM CHLORIDE 0.9% FLUSH 10 ML IV (09:10)
[2021-06-21] MEDS: risperiDONE 0.25 MG TABLET PO ×2 (09:10→21:40)
[2021-06-21 09:52] VITALS: BP 140/68; PULSE 82; RESP 14; TEMP 36.4; O2SAT 99
--- NOTE | 2021-06-21 11:45 | PT.IPTN ---
Current Diagnoses Unspecified intestinal obstruction, unspecified as to partial versus complete obstruction (06/18/21) Physical Therapy Treatment Note M2 PT-IP Current Condition Start: 06/19/21 10:49 Freq: Status: Active Protocol: Document 06/20/21 09:39 DLM (Rec: 06/20/21 09:51 DLM [id number]) Physical Therapy Current Condition Current Condition Evaluation Date 06/20/21 Treatment Diagnosis abdominal pain, impaired mobility/gait Onset Date 06/18/21 M3 PT-IP Subjective Start: 06/19/21 10:49 Freq: Status: Active Protocol: Document 06/21/21 11:31 KS (Rec: 06/21/21 12:58 KS [id number]) Subjective Physical Therapy Visit Type Type Treatment Note Visit Start Time 11:31 Visit Stop Time 11:45 Total Visit Minutes 14 Notes Pts present and able to motivate pt to working w/ therapy. Number of WAREHOUSE INSULATION WORKER Visits 1 Physical Therapy Visit Comments Patient Comments Reporting rib and abdominal discomfort. Therapy Pain Assessment Pain When Pain Assessed At Rest Pain Present Pain Present Pain Reported Location Right Ribs Scale Used not quantified Pain Behaviors Guarding,Holding Area,Moaning, Restlessness,Wincing Abdomen Scale Used not quantified M4 PT-IP Mobility and Gait Start: 06/19/21 10:49 Freq: Status: Active Protocol: Document 06/21/21 11:31 KS (Rec: 06/21/21 12:58 KS [id number]) PT-Bed Mobility Assessment Rolling Type of Rolling Roll to Left Level of Assist Independent Supine to Sit Supine to Sit Independent Sit to Supine Sit to Supine Independent Scooting Scooting to Edge of Bed Independent Scooting Up and Down in Bed Independent PT-Transfer Assessment Sit to and From Stand Sit to and from Stand Contact Guard Assistance,1 Person Assistance,Use of Upper Extremities Equipment Transfer Assistive Device Gait Belt,Front Wheeled Walker Transfers Transfer Destination Chair Transfer Technique Pt ambulated w/ FWW Transfer Ability Level of Assist Contact Guard Assistance,Use of Upper Extremities Comments Mobility Comments Pt I for sup<>sit but requires cues to perform safely. She c /o pain throughout mobility. CGA for sit<>Stand w/ FWW. Pt then ambulated ~10 ft to chair w/ FWW and CGA. Pt took small shuffling steps and c/o increased pain during ambulation and requested to sit down. Cues for slow descent and hand placement. Pt refused further ambulation or exercise and was left in chair w/ alarm on and all needs in reach. Gait Assessment Gait Gait Assistance Required: Contact Guard Assist,1 Person Assist Distance (Feet) 10 Assistive Devices Assistive Device Gait Belt,Front Wheeled Walker Gait Deviations General Gait Pattern Decreased Stride Length, Decreased Feet Clearance, Flexed Trunk Factors Limiting Gait Function Factors Limiting Gait Function Decreased Activity Tolerance, Poor Balance Comments Gait Comments Pt unwilling to ambulate further distance today due to reported pain. Requested FWW, did not assess SPC today. Stair Climbing Assessment Comments Stair Climbing Comments has chair lift at home, bedroom on second floor of house PT-Balance Assessment Sitting Balance and Reactions Static Sitting Balance Ability Fair Dynamic Sitting Balance Ability Fair Standing Balance and Reactions Static Standing Balance Ability Fair Dynamic Standing Balance Ability Fair Device Used FWW M5 PT-IP Objective Assessments Start: 06/19/21 10:49 Freq: Status: Active Protocol: Document 06/20/21 09:39 DLM (Rec: 06/20/21 09:51 DLM [id number]) Orientation Orientation/Cognition Level of Alertness Alert Safety Awareness Decreased Safety Awareness Memory Description Short Term Impaired Gross Range of Motion Upper Extremity ROM Assessment Within Functional Limits Lower Extremity ROM Assessment Within Functional Limits Strength Upper Extremity Strength Assessment Within Functional Limits Lower Extremity Strength Assessment Bilaterally Impaired Hip 4/5 Knee 4/5 Ankle DF 5/5 Comments Strength Comments mild generalized deconditioning noted throughout Coordination Assessment Gross Coordination Gross Coordination WNL Sensation Assessment Sensation Gross Sensation WNL Comments Sensation Comments no changes reported by pt Muscle Tone Muscle Tone WNL Yes M6 PT-IP Treatment Start: 06/19/21 10:49 Freq: Status: Active Protocol: Document 06/21/21 11:31 KS (Rec: 06/21/21 12:58 KS [id number]) Physical Therapy Treatment Education Education Provided Safety Other Treatments Other Treatment Performed Demonstrated gait belt application to pts spouse. M7 PT-IP Assessment and Plan Start: 06/19/21 10:49 Freq: Status: Active Protocol: Document 06/21/21 11:31 KS (Rec: 06/21/21 12:58 KS [id number]) PT Summary Assessment and Plan Potential Rehabilitation Potential Fair Status of Condition at Evaluation Evolving Summary Impairments Pain,Strength,Balance, Transfers,Gait,Activity Tolerance Assessment Summary Pt feeling worse today and therefore limited in mobility due to abdominal and rib pain. She required motivation from her to participate in therapy. She was bale to move in bed independently, sit<> Stand CGA, and ambulate ~10 ft w/ FWW but refused further treatment due to pain. Will continue to assess progress while in hospital. She may require SNF to improve functional independence, but at minimum 24/7 and HHPT to improve safety and strength. Goals Transfer Goal Independent,Cane Gait Goal Independent,Cane,Front Wheel Walker Gait Distance 250 feet Days to Meet Goals 2 Frequency of Treatment Frequency Of Treatment Once a Day Treatment Plan Physical Therapy Treatment Plan Transfer Training,Gait Training,Therapeutic Exercise, Balance Retraining,Discharge Planning,Neuromuscular Re-ed Precautions Other Precautions hx multiple abdominal surgeries, use gait belt high Recommendations To Nursing Amount of Assist Needed Standby Assistance Discharge Recommendations PT Discharge Recommendations Home with 247 Assist Available,Home Health,SNF Rehab Transportation Needs at Discharge Private Vehicle
[2021-06-21] MEDS: LORazepam 1 MG TABLET PO (12:14)
--- NOTE | 2021-06-21 12:18 | PC.NURSE ---
Addendum entered by Pilar Boswell R.N. 06/21/21 17:08: pt was asleep. but now awake and sundowning. she refused her sucralfate and she said she does not want to eat. Original Note: pt reports nausea. pt is also anxious. ativan given. pt is confused.
--- NOTE | 2021-06-21 12:26 | CM.DPC ---
Addendum entered by SRIDHAR Sprague 06/21/21 15:19: ADD: Return call from [facility] and they can accept pt likely for their HA program for increase care initially and SW faxed F2F and MD orders to review for possible d/c home tonight or tomorrow. BF Addendum entered by SRIDHAR Sprague 06/21/21 15:11: ADD: MD to likely d/c pt this evening to home since SNF has not been secured. SW did fax referral to [facility] as well based on knowing they have possible beds. [facility] currently does not feel any concerns with accepting pt but would not be today. MAJO faxed updated RN/PT/dietary notes to review. BF Original Note: DCP Cont: Per MD, pt medically stable to d/c today but not back to baseline yet and SNF vs home with spouse and HH to be determined. SW met bedside with pt and spouse and pt quite drowsy and not participating in discussion and spouse feels pt needs SNF at d/c prior to safe return home. Preference is [facility] as pt was admitted from [facility] but had just been discharged for SNF for meeting her Medicare goals. SW discussed that his second SNF choice of [facility] currently unable to accept new admission currently due to COVID+ in staff. SW provided SNF Choice list for [facility] to review in case [facility] not an option. SW called [facility] and they state concern is that pt does not appear to have a skillable need for SNF at this time to bill Medicare for and therefore unable to accept at this time (unless private pay) and unless MD note from today shows specific medical need for SNF that they could bill Medicare. MAJO updated MD and he will review pt's chart to determine if specific medical need could be justified. MAJO met bedside with spouse again and discussed above and he confirms they cannot financially afford PP SNF and SW discussed in depth HH services and frequency and provided Senior Resource Guidebook with PP agencies and also the [facility] contact info and application towards increased assist at home. Spouse states that if SNF not an option he will plan to networking engineer via Zoom (he is a baton teacher) and agreeable with [facility] referral and resources but preference is still SNF if possible. He has to leave for work right now but will be back this evening and agreeable to taking pt home if SNF cannot happen. SW updated RN as well and confirmed with [facility] that they received the referral, the signed F2F and MD orders but still need d/c summary. Katie now aware that pt did not d/c yesterday and likely today. Plan: SW to follow closely to confirm SNF not an option as no skillable need and plan of d/c home tonight with spouse and new [facility] and additional resources given. SRIDHAR Sprague
--- NOTE | 2021-06-21 12:40 | DIET.CONS ---
Dietary Consultation Note Admission Date: 06/18/2021 20:21 Assessment: 70y F admitted for partial SBO referred to nutrition for malnutrition. Pt has hx ulcerative colitis resulting in total colectomy and ileo-anal pouch. Pt has dementia c sundowning and is often at home alone during the day while spouse works. Pt oriented to self, concern for pt safety in home, whether adequate hunger/thirst cues without supervision. Ht: 154.94 cm Wt: 50 kg BMI: 20.8 Last BM: 06/20/21 (06/20/21 21:45) MNA: 9 Sean Score: 19 Diet: 06/20/21 Lunch Full Liquid Diet Diet Modifications: Nutrition Percent Meal Consumed 50% 06/20/21 18:00 Percent Meal Consumed 50% 06/20/21 08:32 Labs: RBC 3.97 X10^6/uL (4.0-5.2) L 06/19/21 10:00 Hgb 12.7 g/dL (12.0-16.0) 06/19/21 10:00 Hct 38.5 % (36-46) 06/19/21 10:00 Creatinine 0.82 mg/dL (0.52-1.04) 06/20/21 05:35 Lactate 1.4 mmol/L (0.7-2.1) 06/18/21 18:25 Nutrition Diagnosis: Severe Chronic Malnutrition r/t altered GI tract, dementia aeb BMI 20.8 (severe for age), pt oriented to self and often home alone during day, hx ulcerative colitis c total colectomy and ileoanal pouch. Interventions: 1. Recc ONS Ensure Enlive bid during day to support nutrition status. ONS provides 50% kcal and 60% protein needs. Recc ONS be placed in pts sight and familiar environment with spouse or HH agency giving frequent cues to sip. Recc supervised meals. EER: 1500kcals (30kcal/kg per PCM), 65g PRO (1.3g/kg) Electronically Signed by: Barby Vallejo 06/21/21 12:40 Clinical Dietitian [address] [address]
[2021-06-21 14:00] VITALS: BP 148/77; PULSE 85; RESP 14; TEMP 36.1; O2SAT 98
[2021-06-21 18:00] VITALS: BP 151/86; PULSE 84; RESP 16; TEMP 36.4; O2SAT 99
--- NOTE | 2021-06-21 18:05 | PM.PN.1 ---
Subjective Subjective Date Patient Seen: 06/21/21 Interval history: REVIEW OF SYSTEM IS UNRELIABLE SHE WAS ALERT, AWAKE, NOT ORIENTED TO TIME AND? PLACE Exam Vital Signs (past 8 hours): - 06/21/21 14:00 Temperature 97 F L Pulse Rate 85 Respiratory Rate 14 Blood Pressure 148/77 H Pulse Oximetry 98 Oxygen Delivery Method Room Air Oxygen Flow Rate 0 Narrative Exam Narrative: NO ACUTE DISTRESS.? UNDERLYING DEMENTIA.? VITAL SIGNS STABLE HEAD ATRAUMATIC NORMOCEPHALIC NECK :? NO? ADENOPATHY NO CAROTID BRUITS EYE:? EOMI, PERRLA, NORMAL CONJUNCTIVA; NO JAUNDICE CHEST:? REGULAR RATE.? ? NO RUBS.? PMI IS NON DISPLACED.? NO MURMURS; NORMAL S1-S2 PULMONARY:? DECREASED BS OVER THE BASES.? MILD BIBASILAR CRACKLES NOTED; NO INCREASED DULLNESS TO PERCUSSION ABDOMEN:? SOFT.? NONTENDER.? NONDISTENDED.? BOWEL SOUNDS ARE PRESENT IN ALL 4 QUADRANTS.? EXTREMITIES: ? NO CYANOSIS OR? CLUBBING NOTED. NEURO:? CRANIAL NERVES 2-12 GROSSLY INTACT. NO FOCAL NEUROLOGICAL DEFICIT NOTED.? DEMENTIA MSK:? NORMAL RANGE OF MOTION FOR AGE.? NO JOINT EFFUSION. SKIN:? FAIR SKIN TURGOR; NO ECCHYMOSIS.? ? PSYCH :? CALM.? COOPERATIVE Objective Labs Result Diagrams: 06/19/21 10:00 06/20/21 05:35 [facility] Medical History (Updated 06/18/21 @ 22:39 by ADOLPH Lora) Generalized weakness Small bowel obstruction Surgical History (Updated 06/18/21 @ 22:39 by ADOLPH Lora) H/O thyroidectomy Family History Mother Diabetes mellitus Heart disease Father Diabetes mellitus Heart disease Brother Myocardial infarction CVA (cerebral vascular accident) Other Hypertension Social History household members: spouse Smoking Status: Never smoker alcohol intake: former Assessment & Plan Assessment & Plan narrative: PROBLEM LIST POSSIBLE SBO, RESOLVED HYPONATREMIA.? STABLE SODIUM LEVEL DEMENTIA WITH SUNDOWNING. APPROVED BIPOLAR DISEASE PER HISTORY HYPERTENSION PER HISTORY PLAN 06/21 SPOKE TO CASE MANAGEMENT AT [facility] IN REGARD TO DISCHARGE PLANNING GOING ON WORD TODAY SPOUSE IS AWARE OF THE DISCHARGE PLANNING WELL WE ARE UNABLE TO PLACE PATIENT INTO RESIDENTIAL FACILITY AT THIS TIME SHE WILL BE DISCHARGED TO HOME LIKELY IN THE NEXT 24 HOURS WITH HOME HEALTH 1/2 ATTENDED TO DISCHARGE PATIENT TODAY PER HER REQUEST HOWEVER SHE IS UNABLE TO MAKE A FORMAL DECISION BECAUSE OF UNDERLYING DEMENTIA SPOKE TO AT [facility] IN REGARD TO THE CASE PATIENT WILL BENEFIT TO STAY AT THE RESIDENTIAL FACILITY VERSUS ASSISTED WILL SPEAK TO CASE MANAGEMENT IN REGARD TO POSSIBLE PLACEMENT TO ASSISTED IF ABLE PATIENT REMAINED IN THE HOSPITAL OVERNIGHT REPEAT LABS IN THE MORNING ADDITIONAL MANAGEMENT PER CLINICAL COURSE Time Spent With Patient Critical Care time: I spent a total of [] minutes of critical care time on this patient's care today; this time is exclusive of procedural time. Quality VTE Deep Vein Thrombosis/Pulmonary Embolism Present on Admission: No
[2021-06-21] MEDS: MELATONIN 3 MG TABLET 6 MG PO (21:39)
[2021-06-21] MEDS: OLANZapine 2.5 MG TABLET PO (21:40)
[2021-06-21] MEDS: DIVALPROEX ER 250 MG TAB 1000 MG PO (21:40)
[2021-06-22] VITALS (7 sets, daily range): BP systolic 104–157; BP diastolic 54–86; PULSE 72–94; RESP 14–18; TEMP 36.4–37.1; O2SAT 95–99
--- NOTE | 2021-06-22 03:20 | PC.NURSE ---
Addendum entered by Heena Sheffield R.N. 06/22/21 04:36: Pt agreed to take a Simethicone PO chew at 0338. Pt continues to moan out intermittently but when this RN just asked the patient if she was okay and if the medication helped with patients stomach pains, pt replied yes. Denied any other medications at this time. Addendum entered by Heena Sheffield R.N. 06/22/21 03:24: Late entry: At 2100 medication pass, patient refused to take any medications. Patient was offered medications about 20 minutes later, after had left the room and agreed to take medications. Original Note: Patient has cried out making a moaning sound intermittently throughout the shift, when this RN enters the room and asks the patient if she is in pain, patient replies no. Patient was offered pain medication or a medication to help relieve gas pain and declined. Patient will only respond and answer to yes/no questions/answers only. Will continued to assess and monitor.
[2021-06-22] MEDS: SIMETHICONE 80 MG TABLET PO (03:38)
[2021-06-22] MEDS: OXYCODONE IR 5 MG TABLET PO (04:53)
[2021-06-22] MEDS: LORazepam 1 MG TABLET PO (06:28)
[2021-06-22] MEDS: LEVOTHYROXINE 75 MCG TABLET PO (06:28)
[2021-06-22] MEDS: FAMOTIDINE 20 MG TABLET PO (10:23)
[2021-06-22] MEDS: ENOXAPARIN 40 MG/0.4 ML SYRINGE SUBCUT (10:23)
[2021-06-22] MEDS: lamoTRIgine 100 MG TABLET 400 MG PO (10:23)
[2021-06-22] MEDS: LOSARTAN 25 MG TABLET PO (10:24)
[2021-06-22] MEDS: MEMANTINE HCL 5 MG TABLET PO (10:26)
[2021-06-22] MEDS: risperiDONE 0.25 MG TABLET PO ×2 (10:26→22:32)
[2021-06-22] MEDS: SODIUM CHLORIDE 0.9% FLUSH 10 ML IV (10:30)
[2021-06-22] MEDS: SUCRALFATE 1 GM TABLET PO ×2 (10:30→22:32)
--- NOTE | 2021-06-22 10:38 | PT.IPTN ---
Current Diagnoses Unspecified intestinal obstruction, unspecified as to partial versus complete obstruction (06/18/21) Physical Therapy Treatment Note M2 PT-IP Current Condition Start: 06/19/21 10:49 Freq: Status: Active Protocol: Document 06/20/21 09:39 DLM (Rec: 06/20/21 09:51 DLM [id number]) Physical Therapy Current Condition Current Condition Evaluation Date 06/20/21 Treatment Diagnosis abdominal pain, impaired mobility/gait Onset Date 06/18/21 M3 PT-IP Subjective Start: 06/19/21 10:49 Freq: Status: Active Protocol: Document 06/22/21 10:30 KS (Rec: 06/22/21 12:05 KS [id number]) Subjective Physical Therapy Visit Type Type Treatment Note Visit Start Time 10:30 Visit Stop Time 10:38 Total Visit Minutes 8 Number of SPOOL TENDER Visits 2 Physical Therapy Visit Comments Patient Comments Reporting rib and abdominal discomfort. Therapy Pain Assessment Pain When Pain Assessed At Rest Pain Present Pain Present Pain Reported M4 PT-IP Mobility and Gait Start: 06/19/21 10:49 Freq: Status: Active Protocol: Document 06/22/21 10:30 KS (Rec: 06/22/21 12:05 KS [id number]) PT-Transfer Assessment Sit to and From Stand Sit to and from Stand Moderate Assistance,Maximum Assistance,2 Person Assistance ,Use of Upper Extremities Equipment Transfer Assistive Device Gait Belt,Front Wheeled Walker Transfers Transfer Destination Chair Transfer Technique sit<>stand only Transfer Ability Level of Assist Moderate Assistance,Maximum Assistance,2 Person Assistance Comments Mobility Comments Pt in chair upon arrival from therapy and agreeable to try ambulation. Pt able to scoot to EOC CGA and upon sit<>stand w/ FWW and Max A pt calls out in pain and was unable to fully stand up. Pt attempted twice more but unable to stand long enough to don pants. RN arrived and provided assist and was able to hold pt up max A while this SPOOL TENDER pulled pts pants up fully. Pt called out in pain (ribs) and refused further treatment including exercises in chair. Pt left in chair w/ alarm on and RN in room. Gait Assessment Comments Gait Comments Pt refused Stair Climbing Assessment Comments Stair Climbing Comments has chair lift at home, bedroom on second floor of house PT-Balance Assessment Sitting Balance and Reactions Static Sitting Balance Ability Fair Dynamic Sitting Balance Ability Fair Standing Balance and Reactions Static Standing Balance Ability Fair Dynamic Standing Balance Ability Fair Device Used FWW M5 PT-IP Objective Assessments Start: 06/19/21 10:49 Freq: Status: Active Protocol: Document 06/20/21 09:39 DLM (Rec: 06/20/21 09:51 DLM [id number]) Orientation Orientation/Cognition Level of Alertness Alert Safety Awareness Decreased Safety Awareness Memory Description Short Term Impaired Gross Range of Motion Upper Extremity ROM Assessment Within Functional Limits Lower Extremity ROM Assessment Within Functional Limits Strength Upper Extremity Strength Assessment Within Functional Limits Lower Extremity Strength Assessment Bilaterally Impaired Hip 4/5 Knee 4/5 Ankle DF 5/5 Comments Strength Comments mild generalized deconditioning noted throughout Coordination Assessment Gross Coordination Gross Coordination WNL Sensation Assessment Sensation Gross Sensation WNL Comments Sensation Comments no changes reported by pt Muscle Tone Muscle Tone WNL Yes M6 PT-IP Treatment Start: 06/19/21 10:49 Freq: Status: Active Protocol: Document 06/22/21 10:30 KS (Rec: 06/22/21 12:05 KS [id number]) Physical Therapy Treatment Education Education Provided Safety M7 PT-IP Assessment and Plan Start: 06/19/21 10:49 Freq: Status: Active Protocol: Document 06/22/21 10:30 KS (Rec: 06/22/21 12:05 KS [id number]) PT Summary Assessment and Plan Potential Rehabilitation Potential Fair Status of Condition at Evaluation Evolving Summary Impairments Pain,Strength,Balance, Transfers,Gait,Activity Tolerance Assessment Summary Pt unable to ambulate today and unable to fully stand due to pain. She attempted sit<> stand 4 times to apply pants but was unable to fully stand due to pain. At this time, pt is unsafe to go home and will require SNF to improve functional mobility independence. Goals Transfer Goal Independent,Cane Gait Goal Independent,Cane,Front Wheel Walker Gait Distance 250 feet Days to Meet Goals 2 Frequency of Treatment Frequency Of Treatment Once a Day Treatment Plan Physical Therapy Treatment Plan Transfer Training,Gait Training,Therapeutic Exercise, Balance Retraining,Discharge Planning,Neuromuscular Re-ed Precautions Other Precautions hx multiple abdominal surgeries, use gait belt high Recommendations To Nursing Amount of Assist Needed 2 Person Assist Discharge Recommendations PT Discharge Recommendations Home with 24/7 Assist Available,SNF Rehab Transportation Needs at Discharge Private Vehicle
--- NOTE | 2021-06-22 11:04 | CM.DPC ---
DCP continued: CM spoke with patients Willard today about the patient DC today. patient and her would like the patient to go to SNF but are okay with the patient DC home if no SNF is found that will accept the patient. According to SW note patient maybe able to go to [facility] today so CM called and LVM for them. Cm also spoke with [facility] and they can accept the patient to the [facility] program and will just need DC summary when patient is DC home. CM updated the patients who stated he can pick his up at 8pm today but would prefer her to go to a SNF. CM will attempt to get SNF placement but if once is not obtained to day patient will DC home with her medina at 8pm with the [facility]. CM will continue to work on DC plan to SNF VS home with [facility]. Karen Herrera
--- NOTE | 2021-06-22 11:31 | PC.NURSE ---
Addendum entered by Milton Broderick R.N. 06/22/21 19:38: unable to get IV started after three attempts. Dr. al. Addendum entered by Milton Broderick R.N. 06/22/21 19:27: Pt sent to CT given 2mg Haldol prior to scan. Pt was cooperative with scan. Pt resettled to bed and room. Pulse ox on to monitor. Original Note: Pt is alert, requires continual redirecting. C/o she can't stand up, but has been found standing at the edge of her bed. Sits easily in her chair. Took b'fast well, swallowing easily yet fighting swallowing pills. Worked with PT for a short period c/o not being able to stand. called for update and also spoke with Care Management. Anticipate d/c after gets off work at around 20:00.
[2021-06-22] MEDS: SCOPOLAMINE 1 PATCH TOP (14:01)
--- NOTE | 2021-06-22 15:03 | PM.DS.1 ---
History of Present Illness History of Present Illness Chief complaint: Abd pain, suspected ileus Narrative: History of Present Illness History of Present Illness Date Patient Seen:?06/18/21 Time Patient Seen:?21:15 Narrative: Shikha Watkins is a 70 y.o. female with PMH of ulcerative colitis s/p subtotal colectomy with ileoanal pouch, Ellie fundoplication, small bowel fistula, multiple surgeries for adhesive disease, recent exploratory laparotomy last month at [facility] for free air with no source found who presents to the hospital with abdominal pain, nausea and limited vomiting. She was admitted and discharged from this facility on May 28 discharged on June 06 respectively for a similar presentation. She was had sudden onset of abdominal cramping and nausea. She is passing gas, she has had a bowel movement that is thin. No blood, no and small amounts of vomit. Denies fevers/chills. She has had an episode of pancreatitis in the past and never found out what the cause was. She has been at [facility], does not want to return and wants to be able to return home. In the ED workup was done, vitals were unremarkable. Labs notable for WBC 9.5, hemoglobin and hematocrit were 11.1 and 32.4 respectively, sodium 131, creatinine 0.72,Bilirubin 0.4, ast/alt 29/14. Albumin 3.8. Lipase 323 which has been trending down since her prior admissions.? CT of chest, abdomem, pelvis reported ??Postsurgical colectomy changes as above.? Mildly dilated loop of proximal bowel from the anastomotic site with scattered loops of more proximal small bowel.? Overall appearance is suggestive ileus/developing partial small bowel obstruction.? No perforation.?She was given IV fluid and pain medications in the ED, General surgery was consulted and she was admitted for further evaluation and treatment. Discharge Providers Provider Date of admission: 06/18/21 20:21 Discharge Date: 06/22/21 Consults: 06/18/21 20:31 Consult to General Surgery Routine Comment: Dr. Camargo Consulting Provider: Shobha Camargo Reason for consultation: ileus, N/V Has provider been notified: Yes 06/18/21 22:18 Consult to Dietitian, Adult Routine Comment: Reason For Exam: severe protein calorie malnution 06/19/21 10:18 Consult to Physical Therapy Evaluate & Treat Comment: Physician Instructions: Evaluate and Treat 06/21/21 15:21 Consult to Home Health Routine Comment: partial SBO Reason For Exam: Set up HH RN/PT/OT/DRUG ENFORCEMENT AGENT and possible HA program Discharge provider: Jey Nuñez DO Summary Hospital Course Discharge Diagnosis: POSSIBLE SBO/ ILEUUS ,? RESOLVED HYPONATREMIA.? STABLE SODIUM LEVEL POSSIBLE DEMENTIA WITH SUNDOWNING. WILL NEED FURTHER TESTING OUTPATIENT WITH NEUROLOGY BIPOLAR DISEASE PER HISTORY HYPERTENSION PER HISTORY PROTEIN CALORIE DEFICIENCY MALNUTRITION. NO ACTION NEEDED AT THIS TIME . NO AFFECT ON CURRENT PATIENT CONDITION Hospital Course: THIS IS A 70-YEAR-OLD FEMALE ADMITTED TO THE HOSPITAL SUSPICION OF POSSIBLE SMALL BOWEL OBSTRUCTION WHICH HAS BEEN RULED OUT AT THIS TIME. PATIENT LABS ARE FAIRLY STABLE AND VITALS HAS REMAINED FAIRLY STABLE WELL. HOWEVER SHE IS DEVELOPING SOME SUNDOWNING I SUSPECT IS DUE TO UNDIAGNOSED DEMENTIA. SHE HAS BEEN STARTED ON RISPERDAL WELL OLANZAPINE SINCE SHE HAS ALLERGIC TO SEROQUEL. NAMENDA ALSO ADDED DAILY. OTHERWISE HOME MEDICATION HAS BEEN CONTINUED. SHE ALSO WILL BE STARTED ON A LOW-DOSE ASPIRIN SO WELL A STATIN AT NIGHT. OTHERWISE PATIENT APPEARS TO BE STABLE AT THIS TIME. SHE WILL BE DISCHARGED TO HOME. ADDITIONAL MANAGEMENT WILL BE DEFERRED TO OUTPATIENT PROVIDERS. PATIENT WILL REQUIRE STRICT SUPERVISION WHILE AT HOME. Status at Discharge Cognitive/behavioral status at discharge: at baseline, confused Functional status at discharge: uses cane/walker Overall status at discharge: patient is progressing back to baseline Time Spent with Patient Time spent: Greater than 30 minutes Exam Vital Signs (past 8 hours): - 06/22/21 08:00 06/22/21 10:24 06/22/21 12:15 Temperature 97.5 F L 97.5 F L Pulse Rate 82 82 94 H Respiratory Rate 16 14 Blood Pressure 157/84 H 157/84 H 106/65 Pulse Oximetry 96 95 Oxygen Delivery Method Room Air Oxygen Flow Rate 0 Narrative Exam Narrative: NO ACUTE DISTRESS.? UNDERLYING DEMENTIA.? VITAL SIGNS STABLE HEAD ATRAUMATIC NORMOCEPHALIC NECK :? NO? ADENOPATHY NO CAROTID BRUITS EYE:? EOMI, PERRLA, NORMAL CONJUNCTIVA; NO JAUNDICE CHEST:? REGULAR RATE.? ? NO RUBS.? PMI IS NON DISPLACED.? NO MURMURS; NORMAL S1-S2 PULMONARY:? DECREASED BS OVER THE BASES.? MILD BIBASILAR CRACKLES NOTED; NO INCREASED DULLNESS TO PERCUSSION ABDOMEN:? SOFT.? NONTENDER.? NONDISTENDED.? BOWEL SOUNDS ARE PRESENT IN ALL 4 QUADRANTS.? EXTREMITIES: ? NO CYANOSIS OR? CLUBBING NOTED. NEURO:? CRANIAL NERVES 2-12 GROSSLY INTACT. NO FOCAL NEUROLOGICAL DEFICIT NOTED.? DEMENTIA WITH POOR INSIGHT. MSK:? NORMAL RANGE OF MOTION FOR AGE.? NO JOINT EFFUSION. SKIN:? FAIR SKIN TURGOR; NO ECCHYMOSIS.? ? PSYCH :? CALM.? COOPERATIVE. POOR INSIGHT. Objective Labs Result Diagrams: 06/19/21 10:00 06/20/21 05:35 [facility] Medical History (Updated 06/18/21 @ 22:39 by ADOLPH Lora) Generalized weakness Small bowel obstruction Surgical History (Updated 06/18/21 @ 22:39 by ADOLPH Lora) H/O thyroidectomy Family History Mother Diabetes mellitus Heart disease Father Diabetes mellitus Heart disease Brother Myocardial infarction CVA (cerebral vascular accident) Other Hypertension Social History household members: spouse Smoking Status: Never smoker alcohol intake: former Discharge Plan Discharge Plan Patient Disposition: Home Health Service Provider Discharge Comment: PLEASE REINSTATE PRIOR HOME HEALTH SERVICES Discharge orders & Medications Prescriptions: New scopolamine base [Transderm-Scop] 1 mg over 3 days Patch 3 Day 1 patch topical Q72H Qty: 6 0RF simethicone [Mi-Acid Gas Relief(simethicon)] 80 mg Tablet,Chewable 80 mg PO QID PRN (Reason: Flatulence) Qty: 30 0RF oxycodone 5 mg Tablet 5 mg PO Q4HR PRN (Reason: Pain, Moderate (4-6)) Qty: 20 0RF polyethylene glycol 3350 [Miralax] 17 gram powder in packet 17 g PO DAILY Qty: 100 0RF senna 8.6 mg capsule 8.6 mg PO BID Qty: 120 0RF sucralfate 1 gram Tablet 1 gm PO ACHS Qty: 120 0RF risperidone 0.25 mg Tablet 0.25 mg PO BID Qty: 90 0RF olanzapine 2.5 mg Tablet 2.5 mg PO BEDTIME Qty: 60 0RF famotidine [Pepcid AC] 20 mg Tablet 20 mg PO DAILY Qty: 120 0RF memantine [Namenda] 5 mg Tablet 5 mg PO DAILY Qty: 90 0RF aspirin 81 mg tablet,delayed release (DR/EC) 81 mg PO DAILY Qty: 60 0RF atorvastatin [Lipitor] 20 mg tablet 20 mg PO BEDTIME Qty: 60 0RF Continued losartan 25 MG tablet 25 mg PO QDAY Qty: 0 0RF levothyroxine [Synthroid] 75 MCG tablet 0.075 mg PO QDAY Qty: 0 0RF albuterol sulfate [Ventolin HFA] 90 MCG/PUFF HFA aerosol inhaler 2 puff INH Q4HP PRN (Reason: Bronchospasm) Qty: 0 0RF lamotrigine [Lamictal] 200 MG tablet 400 mg PO QDAY Qty: 0 0RF divalproex 500 MG tablet extended release 24 hr 1,000 mg PO HS Qty: 0 0RF acetaminophen [Tylenol Extra Strength] 500 MG tablet 1,000 mg PO Q6HP PRN (Reason: Abdominal Discomfort) 0RF famotidine [Pepcid AC] 20 mg Tablet 20 mg PO DAILY Qty: 60 0RF gabapentin 300 mg capsule 300 mg PO TID Qty: 120 0RF methocarbamol 500 mg Tablet 500 mg PO TID Qty: 90 0RF polyethylene glycol 3350 17 gram Powder In Packet 17 g PO BID Qty: 30 0RF melatonin 3 mg Tablet 6 mg PO BEDTIME Qty: 90 0RF metoclopramide HCl 5 mg Tablet 5 mg PO AC Qty: 90 0RF trazodone 50 mg Tablet 50 mg PO BEDTIME Qty: 90 0RF sucralfate 1 gram Tablet 1 gm PO ACHS Qty: 120 0RF tramadol 50 mg Tablet 50 mg PO TID Qty: 90 0RF oxycodone 5 mg tablet 5 mg PO Q6H PRN (Reason: pain) Qty: 20 0RF Discontinued dexamethasone 4 mg Tablet 4 mg PO BIDWM Qty: 6 0RF Diet/Activity/Treatments Diet: Low-fat, Low-sodium and Low-cholesterol Diet comment: MECHANICAL / GI SOFT ONLY Skin/Wound/Dressing Care Report to your healthcare provider any signs of infection, such as:: chills, fever and night sweats Visit Report/Discharge Packet Instructions: DI for Pancreatitis, DI for Ileus, How to Prevent Falls Quality VTE Deep Vein Thrombosis/Pulmonary Embolism Present on Admission: No
--- NOTE | 2021-06-22 17:30 | DI.CT.S_ITS ---
PROCEDURE: CT HEAD/BRAIN WO CON INDICATIONS: ALTERED MENTAL STATUS TECHNIQUE: Noncontrast 4.5 mm thick angled axial sections acquired from the foramen magnum to the vertex, with coronal and sagittal reformats. For radiation dose reduction, the following was used: automated exposure control, adjustment of mA and/or kV according to patient size. COMPARISON: [facility], CT, HEAD WITHOUT CONTRAST, 05/25/2016, 12:19. FINDINGS: Image quality: Excellent. CSF spaces: Basal cisterns are patent. No extra-axial fluid collections. The ventricles are symmetric in size and shape. Brain: No intracranial bleeds or masses. There is cerebral volume loss for age, with resultant ventricular and sulcal prominence. Mild periventricular and deep white matter chronic small vessel ischemic changes. . Skull and face: Calvarium and visualized facial bones appear intact, without suspicious lesions. Sinuses: Visualized sinuses and mastoids are clear. IMPRESSION: No acute intracranial abnormality. Dictated by: Saran Daugherty M.D. on 06/23/2021 at 9:18 Approved by: Saran Daugherty M.D. on 06/23/2021 at 9:19
[2021-06-22] MEDS: DEXTROSE 5%-0.9% NS 1,000 ML 100 ML IV (17:57)
--- NOTE | 2021-06-22 18:44 | PM.PN.1 ---
Subjective Subjective Date Patient Seen: 06/22/21 Time Patient Seen: 18:45 Interval history: PATIENT COMPLETELY ALTERED MENTALLY UNABLE TO OBTAIN A RELIABLE REVIEW OF SYSTEMS Exam Vital Signs (past 8 hours): - 06/22/21 12:15 06/22/21 17:08 Temperature 97.5 F L 97.7 F Pulse Rate 94 H 78 Respiratory Rate 14 16 Blood Pressure 106/65 104/54 L Pulse Oximetry 95 97 Oxygen Delivery Method Room Air Oxygen Flow Rate 0 Narrative Exam Narrative: NO ACUTE DISTRESS.? UNDERLYING DEMENTIA.? ALTERED MENTALLY HEAD ATRAUMATIC NORMOCEPHALIC NECK :? NO? ADENOPATHY NO CAROTID BRUITS EYE:? PERRLA, NORMAL CONJUNCTIVA; NO JAUNDICE CHEST:? REGULAR RATE.? ? NO RUBS.? ? NO MURMURS; NORMAL S1-S2 PULMONARY:? DECREASED BS OVER THE BASES.? MILD BIBASILAR CRACKLES NOTED; NO INCREASED DULLNESS TO PERCUSSION ABDOMEN:? SOFT.? NONDISTENDED.? BOWEL SOUNDS ARE PRESENT IN ALL 4 QUADRANTS.? EXTREMITIES: ? NO CYANOSIS OR? CLUBBING NOTED. NEURO:? CRANIAL NERVES 2-12 GROSSLY INTACT. NO FOCAL NEUROLOGICAL DEFICIT NOTED.? DEMENTIA. CONFUSED. AGITATED MSK:? NORMAL RANGE OF MOTION FOR AGE.? NO JOINT EFFUSION. SKIN:? FAIR SKIN TURGOR; NO ECCHYMOSIS.? ? PSYCH :? UNABLE TO ASSESS. AGITATED Objective Labs Result Diagrams: 06/19/21 10:00 06/20/21 05:35 COUNTS INCLUDE 234 BEDS AT THE [facility] Medical History (Updated 06/18/21 @ 22:39 by ADOLPH Lora) Generalized weakness Small bowel obstruction Surgical History (Updated 06/18/21 @ 22:39 by ADOPLH Lora) H/O thyroidectomy Family History Mother Diabetes mellitus Heart disease Father Diabetes mellitus Heart disease Brother Myocardial infarction CVA (cerebral vascular accident) Other Hypertension Social History household members: spouse Smoking Status: Never smoker alcohol intake: former Assessment & Plan Assessment & Plan narrative: PROBLEM LIST POSSIBLE SBO,? RESOLVED HYPONATREMIA.? STABLE SODIUM LEVEL DEMENTIA WITH SUNDOWNING. APPROVED BIPOLAR DISEASE PER HISTORY HYPERTENSION PER HISTORY ALTERED MENTAL STATUS. CONSIDER METABOLIC ENCEPHALOPATHY SEIZURE DISORDER PER HISTORY. ON HOME MED PLAN 06/22 PATIENT IS BECOMING MORE CONFUSED OVERNIGHT DECREASED URINATION ALSO REPORTED BY NURSING WILL ORDER LAB TESTING THIS AFTERNOON IV LINE TO BE REINSERTED WILL ALSO PATIENT BACK ON IV FLUID WILL ALSO ORDER A CT SCAN OF THE BRAIN HOLD DISCHARGE FOR NOW ADDITIONAL MANAGEMENT PER CLINICAL COURSE 06/21 ?SPOKE TO CASE MANAGEMENT AT [facility] IN REGARD TO DISCHARGE PLANNING GOING ON WORD ?TODAY ?SPOUSE IS AWARE OF THE DISCHARGE PLANNING WELL ?WE ARE UNABLE TO PLACE PATIENT INTO [facility] AT THIS TIME ?SHE WILL BE DISCHARGED TO HOME LIKELY IN THE NEXT 24 HOURS WITH HOME HEALTH 06/20 ATTENDED TO DISCHARGE PATIENT TODAY PER HER REQUEST HOWEVER SHE IS UNABLE TO MAKE A FORMAL DECISION BECAUSE OF UNDERLYING DEMENTIA SPOKE TO AT [facility] IN REGARD TO THE CASE PATIENT WILL BENEFIT TO STAY AT THE [facility] VERSUS RETIREMENT WILL SPEAK TO CASE MANAGEMENT IN REGARD TO POSSIBLE PLACEMENT TO RETIREMENT IF ABLE PATIENT REMAINED IN THE HOSPITAL OVERNIGHT REPEAT LABS IN THE MORNING ADDITIONAL MANAGEMENT PER CLINICAL COURSE Time Spent With Patient Critical Care time: I spent a total of [] minutes of critical care time on this patient's care today; this time is exclusive of procedural time. Quality VTE Deep Vein Thrombosis/Pulmonary Embolism Present on Admission: No
[2021-06-22 21:09] LABS: Add Manual Diff / Slide Review NO; Basophils Absolute Auto 0 /uL (0-100); Basophils Percent Auto 0.5 % (0-2); Eosinophils Absolute Auto 100 /uL (0-450); Eosinophils Percent Auto 2.1 % (2-4); Hematocrit 33.5 % (36-46); Hemoglobin 11.1 g/dL (12.0-16.0); Lymphocytes Absolute Auto 1600 /uL (1100-4500); Lymphocytes Percent Auto 28.3 % (25-40); Mean Corpuscular HGB Conc 33.2 % (30-36); Mean Corpuscular Volume 96.6 fL (80-100); Monocytes Absolute Auto 600 /uL (0-900); Monocytes Percent Auto 9.7 % (3-14); Neutrophils Absolute Auto 3500 /uL (1500-7000); Neutrophils Percent Auto 59.4 % (50-75); Platelet Count 208 X10^3/uL (150-400); Red Blood Cell Count 3.47 X10^6/uL (4.0-5.2); Red Cell Distribution Width 15.7 % (11.6-14.8); White Blood Cell Count 5.8 X10^3/uL (4.5-11.0)
[2021-06-22 21:22] LABS: Alanine Aminotransferase 12 IU/L (<35); Albumin 3.6 g/dL (3.5-5.0); Albumin Globulin Ratio 1.2 (1.0-2.8); Alkaline Phosphatase 51 U/L (38-126); Aspartate Aminotransferase 18 IU/L (14-36); Bilirubin Total 0.5 mg/dL (0.2-1.3); Blood Urea Nitrogen 16 mg/dL (7-17); Calcium 9.1 mg/dL (8.4-10.2); Carbon Dioxide 28 mmol/L (22-32); Chloride 107 mmol/L (98-107); Estimated Glomerular Filt Rate 55.1 mL/min (>60); Globulin 2.9 g/dL (1.7-4.1); Glucose 105 mg/dL (80-110); HEMOLYSIS < 15 (0-50); Phosphorous 3.2 mg/dL (2.8-4.1); Potassium 4.3 mmol/L (3.4-5.1); Sodium 138 mmol/L (137-145); Total Protein 6.5 g/dL (6.3-8.2)
[2021-06-22] MEDS: HALOPERIDOL 5 MG/ML VIAL 2 MG IV (21:28)
[2021-06-22] MEDS: MELATONIN 3 MG TABLET 6 MG PO (22:31)
[2021-06-22] MEDS: OLANZapine 2.5 MG TABLET PO (22:32)
[2021-06-22] MEDS: DIVALPROEX ER 250 MG TAB 1000 MG PO (22:32)
[2021-06-23 01:00] VITALS: BP 117/54; PULSE 67; RESP 18; TEMP 36.1; O2SAT 99
[2021-06-23] MEDS: HALOPERIDOL 5 MG/ML VIAL 2 MG IV ×2 (01:23→05:12)
--- NOTE | 2021-06-23 02:31 | PC.NURSE ---
Addendum entered by Monica Chirinos R.N. 06/23/21 06:15: Patient refused all attempts to give water this shift and refused morning dose of levothyroxine, when attempting to give medication she clenched her teeth and would not take medication. Original Note: Patient retaining urine, bladder scan result 391ml, received T.O. from Dr. Rand for straight cath. Results of straight cath 400 ml.
[2021-06-23 05:00] VITALS: BP 103/55; PULSE 72; RESP 18; TEMP 36.2; O2SAT 98
--- NOTE | 2021-06-23 08:33 | CM.DPC ---
Addendum entered by Jo Almeida R.N. 06/23/21 11:33: Gathered material to fax over to DCR, Sarai Lal. SRIDHAR Turcios, has been in contact with her. Completed afidavit paperwork. This home health care case manager filled out information indicating that upon admission, 06-19, patient had been alert and oriented. She had shortly arrived from [facility] and was planning on going home. Mental health history was not originally mentioned from [facility]. Patient now, is refusing all care, in position, as was added to affidavit. Patient has refused medications, all therapy. Spouse, Willard, also completed his affidavit, and hospitalist also completed form necessary for DCR. Faxed all information over to DCR. was updated by SRIDHAR Turcios, that if DCR is able to see patient, she will evaluate where patient will go. Original Note: DCP Cont: Patient did not discharge home last pm. There was a message from the charge acute care certified nursing assistant at approximately 2300, that wanted her to go to a psyc facility. The name of [facility]. Patient has had some confused behaviors, refusing meds, agitation. She had been given Haldol early this morning. Spoke briefly to , Willard Brianpaulinofern. He mentioned, her behaviors are probably because her psyc meds need to be adjusted. The original plan was for her to go home last pm with home health. It is also noted that a referral for [facility] had been initiated, but no feedback. Due to confusion and psyc meds, may be difficult to get patient accepted to any nursing facility. Called [facility]. Their number is: [phone]. indicated, he had called them and thy have beds available. Spoke to center receptionist, and confirmed, they are usually involuntary. Asked SRIDHAR Turcios, for some assistance on this case. She gave an alternate phone number to call: [phone], for further information regarding admission criteria, but there was no answer. P: Will discuss with SRIDHAR Turcios, may need some assistance on this case since patient is having some mental issues which is affecting discharge, primarily if she is involuntary. Will need to meet with spouse with PROCUREMENT PROFESSIONAL to work on discharge plan. Jo Almeida RN/Replanting Machine Crewman
[2021-06-23 09:10] VITALS: BP 92/41; PULSE 73; RESP 16; TEMP 36.1; O2SAT 100
[2021-06-23] MEDS: lamoTRIgine 100 MG TABLET 400 MG PO (09:14)
[2021-06-23] MEDS: MEMANTINE HCL 5 MG TABLET PO (09:14)
[2021-06-23] MEDS: SUCRALFATE 1 GM TABLET PO (09:14)
[2021-06-23] MEDS: risperiDONE 0.25 MG TABLET PO (09:14)
[2021-06-23] MEDS: FAMOTIDINE 20 MG TABLET PO (09:14)
--- NOTE | 2021-06-23 10:32 | DIET.PN1 ---
Dietary Progress Note RD Note: 70y F again consulted to nutrition for poor PO intake. Per nursing pt refusing water, food, and meds. Attempting transfer to geriatric psych unit for medication adjustments. Nutrition support not indicated for individuals with dementia. Ht: 154.94 cm Wt: 50 kg BMI: 22.3 UBW: Last BM: 06/20/21 (06/20/21 21:45) MNA: 9 Sean Score: 13 Diet: 06/20/21 Lunch Full Liquid Diet Diet Modifications: 06/21/21 Dinner General (Regular) Diet Diet Modifications: Nutrition Percent Meal Consumed pt only ate breakfast 06/22/21 18:00 Percent Meal Consumed 100% 06/22/21 11:00 Percent Meal Consumed refused dinner 06/21/21 18:00 Labs: RBC 3.47 X10^6/uL (4.0-5.2) L 06/22/21 21:02 Hgb 11.1 g/dL (12.0-16.0) L 06/22/21 21:02 Hct 33.5 % (36-46) L 06/22/21 21:02 Creatinine 1.00 mg/dL (0.52-1.04) 06/22/21 21:02 Lactate 1.4 mmol/L (0.7-2.1) 06/18/21 18:25 Nutrition Diagnosis: Severe Chronic Malnutrition r/t altered GI tract, dementia aeb BMI 20.8 (severe for age), pt oriented to self and often home alone during day, hx ulcerative colitis c total colectomy and ileoanal pouch, pt often refusing PO food/hydration. Interventions: 1. Continue encouraging PO intake, ONS Ensure Enlive. 2. Agree with plan to adjust meds as pts refusal of PO intake likely related to mental health factors. Electronically Signed by: Barby Vallejo 06/23/21 10:32 Clinical Dietitian [id number] [place] [address]
--- NOTE | 2021-06-23 10:50 | CM.DPC ---
Addendum entered by SRIDHAR Sprague 06/23/21 14:28: ADD: Return call from DCR Cere ([phone]) stating she is the assigned DCR and ready to attempt Ipad assessment with pt and ED MAJO Boyle assisted with getting Ipad assessment set up in pt room with spouse bedside. Return call from DCR Cere stating she had difficult time assessing pt since she was limited in her ability to participate and concerns pt may not be medically cleared and requested to speak to Hospitalist. MAJO connected DCR with Hospitalist and MD agreeable with giving pt another dose of Haldol toward determining if this helps pt to clear. Hospitalist also agreeable to Psych Consult towards determining any further recommendations or med management. DCR Cere does not feel that she can specifically say that pt is gravely disabled from MH needs and not medical and concerns that Inpt MH tx would not accept if she continues to not be able to void independently or participate and would like to wait until medication tried this afternoon before attempting Detainment and Inpt MH involuntary placement. MAJO called [facility] with update that Psych Consult order will be placed soon for eval and recommendations and possible med management towards helping pt stabilize. DCR Cere will be available by phone until 2300 tonight and then back again tomorrow to follow for needs for pt. BF Original Note: DCP Involuntary MH tx Per MD, pt remains medically stable and no medical need to remain hospital level of care but pt currently not presenting as safe to d/c home with spouse as she is not following commands or taking medications. CT completed last night and results normal. MAJO and RN DESHAUN met bedside with pt and spouse and pt able to briefly open eyes and grunt hello but pt still not participating in discussion or following commands. Spouse states that he feels pt needs Inpt MH tx for med management and stabilization prior to safe return home as he states pt has had multiple Inpt MH placements in the past especially after being NPO for bowel obstruction issues and unable to remain on her psych meds. Spouse states he feels this is the worst shape mentally that he has seen her before. Spouse states that pt was last placed at [facility] involuntary tx 3 years ago when she became disoriented, confused, delirious and was in the ED and was sent for tx at [facility] and spouse states it did wonders getting her medications altered and stabilization and she has been able to maintain her baseline since then until now. Spouse willing to write an Affidavit attesting to pt's behaviors/current status. Spouse confirms pt's psych meds managed by Dr. Michel at [facility] and that he and pt have not completed DPOA pwk before but they are legally . SW explained the process of Involuntary placement and need for DCR to assess to determine if she meets criteria to be detained and will then attempt placement. SW called [facility] and consulted with DCR Sarai Lal [phone] and she feels pt may meet criteria for Gravely Disabled but needs documentation from medical record showing pt initially was medically cleared to d/c to home and not needing SNF level of care and Affidavit/attestation from staff and spouse and MD stating the difference from admission/baseline to now. SW called [facility] and officially requested DCR to be dispatched and provided pt information and faxed [facility] medical clearance signed by MD. MD signed attestation that pt medically cleared, RN DESHAUN completed Affidavit along with spouse and CC Delmy to fax clinicals and attestations/affidavits to BESSY Lal at fax [phone]. Plan: SW to help follow DCR review of pt's status to determine if she meets criteria for Involuntary MH tx and pt may need backup plan of Respite stay at Dementia Unit (although no official dx dementia) if pt not able to be placed voluntarily. SRIDHAR Sprague
--- NOTE | 2021-06-23 11:25 | PT-IP ANOTE ---
Pt elevated supine sleeping in bed when arrived, in room when arrived. Pt refused to work with therapy no, no not doing anything. and ADJUNCT PROFESSOR OF LAW provided encouragement and importance of mobility but continued to state no. ADJUNCT PROFESSOR OF LAW stated will return in afternoon for further assessment, stated will be here and hoping pt will be willing to work with therapy later as suggested.
[2021-06-23] MEDS: HALOPERIDOL 5 MG/ML VIAL 2 MG IM (14:22)
[2021-06-23 14:23] VITALS: BP 91/52; PULSE 68; RESP 18; TEMP 36.6; O2SAT 100
--- NOTE | 2021-06-23 14:48 | PT.IPTN ---
Current Diagnoses Unspecified intestinal obstruction, unspecified as to partial versus complete obstruction (06/18/21) Physical Therapy Treatment Note M2 PT-IP Current Condition Start: 06/19/21 10:49 Freq: Status: Active Protocol: Document 06/23/21 14:51 SP (Rec: 06/23/21 15:18 SP [id number]) Physical Therapy Current Condition Current Condition Evaluation Date 06/20/21 Treatment Diagnosis abdominal pain, impaired mobility/gait Onset Date 06/18/21 M3 PT-IP Subjective Start: 06/19/21 10:49 Freq: Status: Active Protocol: Document 06/23/21 14:51 SP (Rec: 06/23/21 15:18 SP [id number]) Subjective Physical Therapy Visit Type Type Treatment Note Visit Start Time 14:38 Visit Stop Time 14:48 Total Visit Minutes 10 Number of CHICK GRADER Visits 3 Physical Therapy Visit Comments Patient Comments Pt grunted uh huh when asked if can work with her to get to EOB. Therapy Pain Assessment Pain When Pain Assessed During Mobility Pain Present Pain Present Pain Reported Location Right Ribs Scale Used not quantified Pain Behaviors Guarding,Holding Area,Moaning, Restlessness,Wincing Pain Management Techniques Distraction,Modification of Treatment,Re-positioning M4 PT-IP Mobility and Gait Start: 06/19/21 10:49 Freq: Status: Active Protocol: Document 06/23/21 14:51 SP (Rec: 06/23/21 15:18 SP [id number]) PT-Bed Mobility Assessment Rolling Type of Rolling Roll to Left Level of Assist Maximal Assistance,1 Person Assistance Supine to Sit Supine to Sit Maximum Assistance,1 Person Assistance,Head of Bed Elevated Scooting Scooting to Edge of Bed Dependent PT-Transfer Assessment Comments Mobility Comments Nurse in room when arrived. Pt grunted uh huh when asked if could assist her in getting to EOB before nurse left. CHICK GRADER cued to keep eyes open but unable. CHICK GRADER elevated bed, pt still grunted uh huh, CHICK GRADER understood as yes when asked if stilling willing to work with therapy to get around more in bed. Pt log roll L Max A x1, L SL to sit Max A x1 for trunk righting, contact with verbal cues for BLE to EOB min A to initiate and she completed. Pt able to get up in partial sitting w/ UE WB on bed for self support pt started grunting, no and repositioned BLE back onto bed . CHICK GRADER pushed call light for [employer] WORKER assist, pt required Max A x2 with use of bed pad for scoot center and back up in bed dependent. Pt unable to respond if in pain or why she is mobilizing with more assist compared to 2 days ago. Pt had call light, bed alarmed and all needs in reach before left. Gait Assessment Comments Gait Comments unable to assess. Stair Climbing Assessment Comments Stair Climbing Comments unable to assess. Pt has chair lift at home, bedroom on second floor of house PT-Balance Assessment Sitting Balance and Reactions Static Sitting Balance Ability Poor Dynamic Sitting Balance Ability Poor M5 PT-IP Objective Assessments Start: 06/19/21 10:49 Freq: Status: Active Protocol: Document 06/20/21 09:39 DLM (Rec: 06/20/21 09:51 DLM [id number]) Orientation Orientation/Cognition Level of Alertness Alert Safety Awareness Decreased Safety Awareness Memory Description Short Term Impaired Gross Range of Motion Upper Extremity ROM Assessment Within Functional Limits Lower Extremity ROM Assessment Within Functional Limits Strength Upper Extremity Strength Assessment Within Functional Limits Lower Extremity Strength Assessment Bilaterally Impaired Hip 4/5 Knee 4/5 Ankle DF 5/5 Comments Strength Comments mild generalized deconditioning noted throughout Coordination Assessment Gross Coordination Gross Coordination WNL Sensation Assessment Sensation Gross Sensation WNL Comments Sensation Comments no changes reported by pt Muscle Tone Muscle Tone WNL Yes M6 PT-IP Treatment Start: 06/19/21 10:49 Freq: Status: Active Protocol: Document 06/23/21 14:51 SP (Rec: 06/23/21 15:18 SP [id number]) Physical Therapy Treatment Education Education Provided Safety M7 PT-IP Assessment and Plan Start: 06/19/21 10:49 Freq: Status: Active Protocol: Document 06/23/21 14:51 SP (Rec: 06/23/21 15:18 SP [id number]) PT Summary Assessment and Plan Potential Rehabilitation Potential Fair Status of Condition at Evaluation Evolving Summary Impairments Pain,ROM,Strength,Balance,Tone ,Cognition,Bed Mobility, Transfers,Gait,Activity Tolerance Progress Towards Goals Slow Progress due to Pain,Slow Progress due to Activity Tolerance,Slow Progress - Other Assessment Summary Pt grunted uh huh CHICK GRADER understood as yes when arrived . Max A x1 for LR and partial sitting toward L side bed with support for trunk and BLE as needed Min A. Unable to get to EOB, pt refused stating no. Pt required total A x2 to center and scoot up back into bed. Will continue to assess progress tomorrow, if pt is unable to and not appropriated to participate, will recommend DC from therapy. Recommending SNF to improved strength and functional mobiltiy. Goals Transfer Goal Independent,Cane Gait Goal Independent,Cane,Front Wheel Walker Gait Distance 250 feet Days to Meet Goals 2 Frequency of Treatment Frequency Of Treatment Once a Day Treatment Plan Physical Therapy Treatment Plan Transfer Training,Gait Training,Therapeutic Exercise, Balance Retraining,Discharge Planning,Neuromuscular Re-ed Other Recommendations and Next Treatment bed mob, transfers Focus Precautions Other Precautions hx multiple abdominal surgeries, use gait belt high Recommendations To Nursing Amount of Assist Needed Mechanical Lift Discharge Recommendations PT Discharge Recommendations SNF Rehab Transportation Needs at Discharge Stretcher/Ambulance
[2021-06-23 15:37] LABS: Ur Creatinine Normal (Normal); Ur Specific Gravity Normal (Normal); Urine Cocaine Negative (Negative); Urine Tetrahydrocannabinol Negative (Negative); Urine pH Normal (Normal)
[2021-06-23 15:38] LABS: UR Morphine/Opiate cutoff 300 Positive (Negative); Urine Amphetamines Negative (Negative); Urine Barbiturates Negative (Negative); Urine Benzodiazepines Positive (Negative); Urine MDMA Negative (Negative); Urine Methadone Negative (Negative); Urine Methamphetamines Negative (Negative); Urine Oxycodone Positive (Negative); Urine Phencyclidine Negative (Negative); Urine Tricyclic Antidepressant Negative (Negative)
--- NOTE | 2021-06-23 15:52 | PC.NURSE ---
pt was difficult to assess. she was mostly asleep. then around 1300 she just started moaning. confused. she started moaning and tried to get out of bed. we thought she might need to use the bathroom,we tried to get her up then she starts moaning and refuses to get up. We were finally able to get her to the commode but was not able to go. bladder scan was 145cc. contreras placed per provider. I asked her if she was in pain, she would say yes, then she would say no. I asked her if she wants pain meds, she says she doesn't want any. mostly moaning noise and answers yes/no questions sometimes.
[2021-06-23] MEDS: DEXTROSE 5%-0.9% NS 1,000 ML 100 ML IV (17:08)
--- NOTE | 2021-06-23 17:27 | PM.PN.1 ---
Subjective Subjective Date Patient Seen: 06/23/21 Interval history: UNABLE TO OBTAIN DUE TO CURRENT MENTATION Exam Vital Signs (past 8 hours): - 06/23/21 14:23 Temperature 97.9 F Pulse Rate 68 Respiratory Rate 18 Blood Pressure 91/52 L Pulse Oximetry 100 Oxygen Delivery Method Room Air Oxygen Flow Rate 0 Narrative Exam Narrative: NO ACUTE DISTRESS.? UNDERLYING DEMENTIA.? ALTERED MENTALLY HEAD ATRAUMATIC NORMOCEPHALIC NECK :? NO? ADENOPATHY NO CAROTID BRUITS EYE:?? PERRLA, NORMAL CONJUNCTIVA; NO JAUNDICE CHEST:? REGULAR RATE.? ? NO RUBS.?? ? NO MURMURS; NORMAL S1-S2 PULMONARY:? DECREASED BS OVER THE BASES.? MILD BIBASILAR CRACKLES NOTED; NO INCREASED DULLNESS TO PERCUSSION ABDOMEN:? SOFT.? NONDISTENDED.? BOWEL SOUNDS ARE PRESENT IN ALL 4 QUADRANTS.? EXTREMITIES: ? NO CYANOSIS OR? CLUBBING NOTED. NEURO:? CRANIAL NERVES 2-12 GROSSLY INTACT. NO FOCAL NEUROLOGICAL DEFICIT NOTED.? DEMENTIA.? VERSUS ? DELIRIUM MSK:? NORMAL RANGE OF MOTION FOR AGE.? NO JOINT EFFUSION. SKIN:? FAIR SKIN TURGOR; NO ECCHYMOSIS.? ? PSYCH :? UNABLE TO ASSESS.? ALTERED AND UNCOOPERATIVE Objective Labs Result Diagrams: 06/22/21 21:02 06/22/21 21:02 Labs: Laboratory Results - last 24 hr 06/22/21 06/22/21 06/23/21 21:02 21:02 15:02 WBC 5.8 RBC 3.47 L Hgb 11.1 L Hct 33.5 L MCV 96.6 MCH 32.0 MCHC 33.2 RDW 15.7 H Plt Count 208 Neut % (Auto) 59.4 Lymph % (Auto) 28.3 Cochran % (Auto) 9.7 Eos % (Auto) 2.1 Baso % (Auto) 0.5 Neut # (Auto) 3500 Lymph # (Auto) 1600 Cochran # (Auto) 600 Eos # (Auto) 100 Baso # (Auto) 0 Sodium 138 Potassium 4.3 Chloride 107 Carbon Dioxide 28 BUN 16 Creatinine 1.00 Estimated GFR 55.1 L BUN/Creatinine Ratio 16.0 Glucose 105 Calcium 9.1 Phosphorus 3.2 Total Bilirubin 0.5 AST 18 ALT 12 Alkaline Phosphatase 51 Total Protein 6.5 Albumin 3.6 Globulin 2.9 Albumin/Globulin Ratio 1.2 U Opiates 300ng/mL cut Positive H Ur Oxycodone Screen Positive H Urine Methadone Screen Negative Ur Barbiturates Screen Negative U Tricyclic Antidepress Negative Ur Phencyclidine Scrn Negative Ur Amphetamines Screen Negative U Methamphetamines Scrn Negative Ur MDMA Scrn (Ecstasy) Negative U Benzodiazepines Scrn Positive H Urine Cocaine Screen Negative U Marijuana (THC) Screen Negative PFSH Medical History (Updated 06/18/21 @ 22:39 by ADOLPH Lora) Generalized weakness Small bowel obstruction Surgical History (Updated 06/18/21 @ 22:39 by ADOLPH Lora) H/O thyroidectomy Family History Mother Diabetes mellitus Heart disease Father Diabetes mellitus Heart disease Brother Myocardial infarction CVA (cerebral vascular accident) Other Hypertension Social History household members: spouse Smoking Status: Never smoker alcohol intake: former Assessment & Plan Assessment & Plan narrative: PROBLEM LIST POSSIBLE SBO,? RESOLVED HYPONATREMIA.? STABLE SODIUM LEVEL DEMENTIA WITH SUNDOWNING. BIPOLAR DISEASE PER HISTORY HYPERTENSION PER HISTORY ALTERED MENTAL STATUS.? CONSIDER DELIRIUM VERSUS WORSENING DEMENTIA SEIZURE DISORDER PER HISTORY.? ON HOME MED PLAN 06/23 MENTATION CONTINUED TO WORSEN PSYCHIATRY TEAM CONSULTED FOR ASSISTANTS RECOMMENDATION TO INCREASED ZYPREXA WILL DISCONTINUE RISPERDAL PATIENT HAS A MIDLINE IV ACCESS WILL START ON IV FLUID DUE TO DECREASED ORAL INTAKE MONITOR INPUT AND OUTPUT CLOSELY MONITOR ELECTROLYTES CLOSELY WELL REPEAT URINALYSIS INDICATED DAILY LEVEL ORDERED STRICT ASPIRATION PRECAUTIONS NURSING TO KEEP LIGHT ON IN THE ROOM AT ALL TIMES ADDITIONAL MANAGEMENT PER CLINICAL COURSE SPOKE TO AND CASE MANAGEMENT IN REGARD TO DISCHARGE PLANNING SPOKE TO PSYCHIATRY DUE TODAY IN REGARD TO CONSULT WELL 06/22 PATIENT IS BECOMING MORE CONFUSED OVERNIGHT DECREASED URINATION ALSO REPORTED BY NURSING WILL ORDER LAB TESTING THIS AFTERNOON IV LINE TO? BE REINSERTED WILL ALSO PATIENT BACK ON IV FLUID WILL ALSO ORDER A CT SCAN OF THE BRAIN HOLD DISCHARGE FOR NOW ADDITIONAL MANAGEMENT PER CLINICAL COURSE 06/21 ?SPOKE TO CASE MANAGEMENT AT [facility] IN REGARD TO DISCHARGE PLANNING GOING ON WORD ?TODAY ?SPOUSE IS AWARE OF THE DISCHARGE PLANNING WELL ?WE ARE UNABLE TO PLACE PATIENT INTO HALFWAY FACILITY AT THIS TIME ?SHE WILL BE DISCHARGED TO HOME LIKELY IN THE NEXT 24 HOURS WITH HOME HEALTH 1/2 ATTENDED TO DISCHARGE PATIENT TODAY PER HER REQUEST HOWEVER SHE IS UNABLE TO MAKE A FORMAL DECISION BECAUSE OF UNDERLYING DEMENTIA SPOKE TO AT [facility] IN REGARD TO THE CASE PATIENT WILL BENEFIT TO STAY AT THE HALFWAY FACILITY VERSUS PENITENTIARY WILL SPEAK TO CASE MANAGEMENT IN REGARD TO POSSIBLE PLACEMENT TO PENITENTIARY IF ABLE PATIENT REMAINED IN THE HOSPITAL OVERNIGHT REPEAT LABS IN THE MORNING ADDITIONAL MANAGEMENT PER CLINICAL COURSE Time Spent With Patient Critical Care time: I spent a total of [] minutes of critical care time on this patient's care today; this time is exclusive of procedural time. Quality VTE Deep Vein Thrombosis/Pulmonary Embolism Present on Admission: No
[2021-06-23 20:40] VITALS: BP 125/54; PULSE 63; RESP 14; TEMP 36.3; O2SAT 100
[2021-06-23] MEDS: SODIUM CHLORIDE 0.9% FLUSH 10 ML IV (21:30)
[2021-06-24] VITALS: BP 103/55; PULSE 60; RESP 18; TEMP 37; O2SAT 97
[2021-06-24] MEDS: HALOPERIDOL 5 MG/ML VIAL 2 MG IM (01:31)
[2021-06-24] MEDS: DEXTROSE 5%-0.9% NS 1,000 ML 100 ML IV ×3 (03:19→23:44)
[2021-06-24 04:54] VITALS: BP 115/61; PULSE 64; RESP 16; TEMP 36.7; O2SAT 97
[2021-06-24 06:16] LABS: Add Manual Diff / Slide Review NO; Basophils Absolute Auto 0 /uL (0-100); Basophils Percent Auto 0.3 % (0-2); Eosinophils Absolute Auto 100 /uL (0-450); Eosinophils Percent Auto 3.1 % (2-4); Hematocrit 31.1 % (36-46); Hemoglobin 10.3 g/dL (12.0-16.0); Lymphocytes Absolute Auto 1000 /uL (1100-4500); Lymphocytes Percent Auto 25.9 % (25-40); Mean Corpuscular HGB Conc 33.1 % (30-36); Mean Corpuscular Hemoglobin 31.9 PG (26-34); Mean Corpuscular Volume 96.2 fL (80-100); Monocytes Absolute Auto 400 /uL (0-900); Monocytes Percent Auto 10.3 % (3-14); Neutrophils Absolute Auto 2300 /uL (1500-7000); Neutrophils Percent Auto 60.4 % (50-75); Platelet Count 185 X10^3/uL (150-400); Red Blood Cell Count 3.24 X10^6/uL (4.0-5.2); Red Cell Distribution Width 15.5 % (11.6-14.8); White Blood Cell Count 3.8 X10^3/uL (4.5-11.0)
[2021-06-24 06:25] LABS: Alanine Aminotransferase 11 IU/L (<35); Albumin Globulin Ratio 1.1 (1.0-2.8); Alkaline Phosphatase 40 U/L (38-126); Aspartate Aminotransferase 21 IU/L (14-36); Bilirubin Total 0.2 mg/dL (0.2-1.3); Blood Urea Nitrogen 23 mg/dL (7-17); Calcium 8.4 mg/dL (8.4-10.2); Carbon Dioxide 26 mmol/L (22-32); Chloride 112 mmol/L (98-107); Estimated Glomerular Filt Rate > 60.0 mL/min (>60); Globulin 2.7 g/dL (1.7-4.1); Glucose 106 mg/dL (80-110); HEMOLYSIS < 15 (0-50); Phosphorous 3.1 mg/dL (2.8-4.1); Potassium 4.2 mmol/L (3.4-5.1); Sodium 139 mmol/L (137-145); Total Protein 5.7 g/dL (6.3-8.2)
[2021-06-24 09:00] VITALS: BP 132/76; PULSE 68; RESP 15; TEMP 36.2; O2SAT 100
[2021-06-24] MEDS: MEMANTINE HCL 5 MG TABLET PO (09:07)
[2021-06-24] MEDS: lamoTRIgine 100 MG TABLET 400 MG PO (09:07)
[2021-06-24] MEDS: ENOXAPARIN 40 MG/0.4 ML SYRINGE SUBCUT (09:07)
[2021-06-24] MEDS: OLANZapine 2.5 MG TABLET 5 MG PO ×2 (09:08→21:30)
[2021-06-24] MEDS: FAMOTIDINE 20 MG TABLET PO (09:08)
[2021-06-24] MEDS: SUCRALFATE 1 GM TABLET PO ×2 (09:08→21:30)
--- NOTE | 2021-06-24 10:28 | PC.NURSE ---
Addendum entered by Pilar Boswell R.N. 06/24/21 11:41: pt is now less responsive. she just moans when PT asked her questions, refused physical therapy. Original Note: pt alert and oriented to self and bday. she was much more awake this morning. she ate 90% of her breakfast. she took all her meds and swallowed them whole. pt is still confused but she was easily redirected.
--- NOTE | 2021-06-24 11:34 | P.CONS_ITS ---
History of Present Illness Consult details Date Patient Seen: 06/24/21 Time Patient Seen: 08:00 Chief complaint: I am not sure why I am here. Reason for consult: Mental status changes Requesting provider: Jey Nuñez Narrative: REFERRAL INFORMATION This is the latest of many psychiatric evaluations for this 70-year-old female referred by the inpatient hospitalist for evaluation of sudden mental status changes. RECORDS REVIEW The patient?s referral documents, medical records were reviewed as part of this evaluation. CHIEF COMPLAINT ?I do not know why I am here. HISTORY OF PRESENT ILLNESS Shikha Watkins is a 70 y.o. female with significant past medical history of ulcerative colitis, subtotal colectomy with ileoanal pouch, Ellie fundoplication, small-bowel fistula, multiple surgeries for adhesive disease, and a recent exploratory laparotomy last month at [facility] for free air with no clear source. The patient presented to the hospital with abdominal pain, nausea, and some vomiting and was admitted on May 28 and discharged on June 06 for similar presentation. She presented again to the emergency department with similar symptoms on June 18. In the emergency department she underwent extensive workup with generally unremarkable labs with the exception of a low sodium and abdominal CT noting the postsurgical colectomy changes with an overall appearance suggestive of ileus or partial small bowel obstruction. There appear to be no perforation. She was given IV fluids and pain medications in the ED and general surgery was consulted with admission for further evaluation and treatment. The patient was observed and rehydrated as an inpatient. Surgical consultation found no evidence of ileus or obstruction and they recommended scopolamine patch for nausea. The patient felt much better the next day and was subsequently able to tolerate clear liquids. Because of her hyponatremia, IV fluids were discontinued and the patient was encouraged to take p.o. intake. On hospital day 3 the patient was being prepped for discharge when she began to have some difficulty with mental status changes. The patient has long history of bipolar disorder that has been well controlled on Lamotrigine and Depakote. She has not had an admission for psychiatric reasons for several years and generally symptoms have been stable and well managed. The patient was prescribed low-dose risperidone but this did not appear to improve her mental status. She was recently switched to olanzapine at night which seems to have been helpful in her to sleep and following morning her mental status seems somewhat improved but was still impaired. When I saw the patient she was able to state her name and birthday and she was also aware that she was in [place]. However she could not name the city but did know that she was in [place]. She also was able to feed herself but seems somewhat confused at times when managing utensils and the placement of objects on the tray in front of her. Her notes no prior episodes of delirium or psychosis. The patient was not suicidal or homicidal and has generally been cooperative with nursing staff. PAST PSYCHIATRIC HISTORY - Diagnoses: Bipolar disorder, long history - Inpatient: 1 inpatient hospitalization many years ago - Outpatient: Currently followed by Dr. Mauro Michel as an outpatient at [facility]. - Suicide Attempts: Unknown PREVIOUS PSYCHIATRIC MEDICATION TRIALS Unknown CURRENT PSYCHOTROPIC MEDICATIONS Lamotrigine and Depakote FAMILY HISTORY - Maternal: Unknown - Paternal: Unknown - Siblings: Unknown SUBSTANCE USE HISTORY - Tobacco: The patient does not smoke. - Alcohol: The patient does not drink. No history of abuse. - Drugs: The patient does not use drugs. DEVELOPMENTAL AND SOCIAL HISTORY Unable to obtain at this time HISTORY - None. - Deployments: N/A - Combat Exposure: N/A - Blast Exposure: N/A Meds Home Medications and Allergies Home Medications Medication Instructions Recorded Confirmed Type albuterol sulfate 90 mcg/actuation 2 puff INH Q4HP PRN #0 04/17/16 06/18/21 History aerosol inhaler (Ventolin HFA) divalproex 500 mg tablet,extended 1,000 mg PO HS #0 04/17/16 06/18/21 History release 24 hr lamotrigine 200 mg tablet 400 mg PO QDAY #0 04/17/16 06/18/21 History (Lamictal) levothyroxine 75 mcg tablet 0.075 mg PO QDAY #0 04/17/16 06/18/21 History (Synthroid) losartan 25 mg tablet 25 mg PO QDAY #0 04/17/16 06/18/21 History acetaminophen 500 mg tablet 1,000 mg PO Q6HP PRN 05/28/21 06/18/21 History (Tylenol Extra Strength) famotidine 20 mg tablet (Pepcid AC) 20 mg PO DAILY #60 tab 06/06/21 06/18/21 Rx gabapentin 300 mg capsule 300 mg PO TID #120 cap 06/06/21 06/18/21 Rx melatonin 3 mg tablet 6 mg PO BEDTIME #90 tab 06/06/21 06/18/21 Rx methocarbamol 500 mg tablet 500 mg PO TID #90 tab 06/06/21 06/18/21 Rx metoclopramide HCl 5 mg tablet 5 mg PO AC #90 tab 06/06/21 06/18/21 Rx oxycodone 5 mg tablet 5 mg PO Q6H PRN #20 tab 06/06/21 06/18/21 Rx polyethylene glycol 3350 17 gram 17 g PO BID #30 ea 06/06/21 06/18/21 Rx oral powder packet sucralfate 1 gram tablet 1 gm PO ACHS #120 tab 06/06/21 06/18/21 Rx tramadol 50 mg tablet 50 mg PO TID #90 tab 06/06/21 06/18/21 Rx trazodone 50 mg tablet 50 mg PO BEDTIME #90 tab 06/06/21 06/18/21 Rx oxycodone 5 mg tablet 5 mg PO Q4HR PRN #20 tab 06/20/21 Rx polyethylene glycol 3350 17 gram 17 g PO DAILY #100 ea 06/20/21 Rx oral powder packet (Miralax) scopolamine base 1 mg over 3 days 1 patch TOPICAL Q72H #6 ea 06/20/21 Rx transdermal patch (Transderm-Scop 1.5 mg transdermal patch () sennosides 8.6 mg capsule (senna) 8.6 mg PO BID #120 cap 06/20/21 Rx simethicone 80 mg chewable tablet 80 mg PO QID PRN #30 tab 06/20/21 Rx (Mi-Acid Gas Relief (simethicone)) aspirin 81 mg tablet,delayed 81 mg PO DAILY #60 tab 06/22/21 Rx release atorvastatin 20 mg tablet (Lipitor) 20 mg PO BEDTIME #60 tab 06/22/21 Rx famotidine 20 mg tablet (Pepcid AC) 20 mg PO DAILY #120 tab 06/22/21 Rx memantine 5 mg tablet (Namenda) 5 mg PO DAILY #90 tab 06/22/21 Rx olanzapine 2.5 mg tablet 2.5 mg PO BEDTIME #60 tab 06/22/21 Rx risperidone 0.25 mg tablet 0.25 mg PO BID #90 tab 06/22/21 Rx sucralfate 1 gram tablet 1 gm PO ACHS #120 tab 06/22/21 Rx Allergies Allergy/AdvReac Type Severity Reaction Status Date / Time butorphanol Allergy Unknown Verified 06/18/21 18:33 Influenza Virus Vaccines Allergy Unknown ITCHING, Verified 06/18/21 18:33 BAD REACTION meperidine Allergy Unknown Verified 06/18/21 18:33 pneumococcal vaccine Allergy Unknown Verified 06/18/21 18:33 quetiapine Allergy Unknown Verified 06/18/21 18:33 shellfish derived Allergy Unknown Verified 06/18/21 18:33 neuroleptics AdvReac Unknown PT STATES Uncoded 09/27/17 12:31 HAD REALLY BAD REACTION, UNABLE TO STATE WHAT Review of Systems Review of Systems ROS: Yes unobtainable due to mental condition Exam Vital Signs (past 8 hours): - 06/24/21 04:54 06/24/21 09:00 Temperature 98.0 F 97.1 F L Pulse Rate 64 68 Respiratory Rate 16 15 Blood Pressure 115/61 132/76 Pulse Oximetry 97 100 Oxygen Delivery Method Room Air Oxygen Flow Rate 0 Narrative Exam Narrative: MENTAL STATUS EXAM * Appearance: The patient is a short-statured but well-developed and well- nourished female who appears her stated age of 70. She is seen lying in her hospital bed wearing hospital attire and seems only mildly disheveled. * Behavior: The patient was cooperative with the evaluation, but was somewhat mildly agitated and fidgety at times. * Gait: Not tested * Speech: Normal rate, volume, and calvin * Mood: ?I do not know? * Affect: Appeared worried, mildly dysphoric. Congruent with content, normal range and reactivity * Thought Process: Tangential and disjointed * Thought Content: Denies suicidal ideation, denies homicidal ideation, intent or plan; and thee was no evidence of a formal thought or perceptual disturbance. * Attention: Somewhat inattentive to the interview and distracted. * Orientation: Oriented to person and place but not time or circumstance and was otherwise confused. * Memory: Unable to be formally tested * Insight: Poor * Judgment: Poor Objective Labs Result Diagrams: 06/25/21 05:55 06/25/21 05:55 Labs: Laboratory Results - last 24 hr 06/23/21 06/24/21 06/24/21 15:02 06:02 06:02 WBC 3.8 L RBC 3.24 L Hgb 10.3 L Hct 31.1 L MCV 96.2 MCH 31.9 MCHC 33.1 RDW 15.5 H Plt Count 185 Neut % (Auto) 60.4 Lymph % (Auto) 25.9 [place] % (Auto) 10.3 Eos % (Auto) 3.1 Baso % (Auto) 0.3 Neut # (Auto) 2300 Lymph # (Auto) 1000 L [place] # (Auto) 400 Eos # (Auto) 100 Baso # (Auto) 0 Sodium 139 Potassium 4.2 Chloride 112 H Carbon Dioxide 26 BUN 23 H Creatinine 0.82 Estimated GFR > 60.0 BUN/Creatinine Ratio 28.0 H Glucose 106 Calcium 8.4 Phosphorus 3.1 Magnesium 2.0 Total Bilirubin 0.2 AST 21 ALT 11 Alkaline Phosphatase 40 Total Protein 5.7 L Albumin 3.0 L Globulin 2.7 Albumin/Globulin Ratio 1.1 U Opiates 300ng/mL cut Positive H Ur Oxycodone Screen Positive H Urine Methadone Screen Negative Ur Barbiturates Screen Negative U Tricyclic Antidepress Negative Ur Phencyclidine Scrn Negative Ur Amphetamines Screen Negative U Methamphetamines Scrn Negative Ur MDMA Scrn (Ecstasy) Negative U Benzodiazepines Scrn Positive H Urine Cocaine Screen Negative U Marijuana (THC) Screen Negative PFSH Medical History Generalized weakness Small bowel obstruction Surgical History H/O thyroidectomy Family History Mother Diabetes mellitus Heart disease Father Diabetes mellitus Heart disease Brother Myocardial infarction CVA (cerebral vascular accident) Other Hypertension Social History household members: spouse Tobacco & Substance Use Smoking Status: Never smoker alcohol intake: former Assessment & Plan Assessment and plan (1) Delirium due to another medical condition, acute, mixed level of activity: Status: Acute (2) Bipolar disorder: Status: Acute Assessment & Plan narrative: ASSESSMENT/MEDICAL DECISION MAKING The patient is a 70-year-old female with a very long history of both bipolar disorder and numerous bowel issues and surgical procedures. She presented for yet another possible small-bowel obstruction which was ruled out but her to discharge the patient became disoriented and delirious exhibiting some ?sundowning? behavior. Low-dose risperidone was not effective at managing mildly agitated behavior, but olanzapine at 5 mg was. After 2 days the patient appears to be eating better, taking fluids, and exhibiting some improvements in mental status, but is still experiencing some sundowning behavior evenings. The differential diagnosis for delirium is quite extensive and given the patient's complex medical history there may be quite a few causes at work here. RECOMMENDATIONS 1. Continue olanzapine 5 mg p.o. q.h.s. as this will be helpful in sleep, decreasing agitated behavior, and improving overall appetite. 2. Rule out easily prevent able causes of delirium including thorough review of medications and specifically antihistamine isidro or anticholinergic medications. 3. Increase efforts at orientation. Also increasing activity during the day such as getting out walking around and its printing natural light. 4. Continue aggressive PT OT to increase activity. 5. Ensure pain is adequately controlled if relevant. 6. Ensure adequate hydration and nutrition. 7. Will continue to follow with you periodically while patient in remains in hospital. Time Spent With Patient Critical Care time: I spent a total of [] minutes of critical care time on this patient's care today; this time is exclusive of procedural time.
--- NOTE | 2021-06-24 11:36 | CM.DPC ---
DCP Cont: Called DCR, Saira, to follow up with locating a psyc facility for patient. According to nurse, Pilar, patient is more alert today. She did eat 90% of her breakfast. Tox screen results are in, and gave them to Saira. She indicated, I'm not sure is a new VOA needs to be done, because I closed the case last night, but I need to check with my collegue on this matter, to see if a whole new assessment needs to be done. According to hospitalist in team rounds, patient is medically stable, but she needs a psyc treatment. Called behavioral health this morning to follow up with psychiatry coming to see patient, as no recent notes. According to hospitalist, psychiatrist was up here to see patient. P: DCP to continue to follow. Will collaborate with [employer] to assist in placement of patient. Jo Almeida RN/Agriculture Manager
--- NOTE | 2021-06-24 11:40 | PT-IP ANOTE ---
Attempted to see pt at 10:20 and 11:40 AM, pt refused both times due to pain and states she does not want PT this PM.
--- NOTE | 2021-06-24 15:35 | CM.SWNOTE ---
PRINCIPLE INDUSTRIAL HYGIENIST/DCP Note PRINCIPLE INDUSTRIAL HYGIENIST speaks with BESSY Chávez (Ph. # [phone]) it is reported that she could not fully evaluate patient yesterday and due to PRINCIPLE INDUSTRIAL HYGIENIST's call she can search for beds for patient. It is reported that due to patient's catheter there is only one inpatient hospital that could review patient, hospital is located in [place]. Saira calls back and reports that [facility] cannot accept patient due to no beds and the facility only accepting patients in [facility]. PRINCIPLE INDUSTRIAL HYGIENIST reviews the above with DESHAUN Yanique. It is reported that patient is sitting up to eat food but declining therapy involvement. Plan: continue to f/u if patient needs catheter, assess if patient can ambulate and manage ADLs. Psychiatry consult report pending. SUSUP/PRINCIPLE INDUSTRIAL HYGIENIST to review Dr. Nichols's report and recommendations. SRIDHAR Richards
--- NOTE | 2021-06-24 15:47 | P.PN_ITS ---
Subjective Subjective Date Patient Seen: 06/24/21 Interval history: BRIEF HPI PATIENT REGIONALLY ADMITTED FOR POSSIBLE SMALL-BOWEL OBSTRUCTION RESOLVED VERSES RULED OUT AT THIS TIME DISCHARGE HELD DUE TO CHANGE IN MENTATION PLAN TO TRY AND DISCHARGE TO PSYCHIATRY FACILITY FOR HELP WITH MEDICATION ADJUSTMENT ONCE ABLE PSYCHIATRY TEAM CONSULTED TODAY STILL UNABLE TO OBTAIN REVIEW OF SYSTEMS Exam Vital Signs (past 8 hours): - 06/24/21 09:00 Temperature 97.1 F L Pulse Rate 68 Respiratory Rate 15 Blood Pressure 132/76 Pulse Oximetry 100 Oxygen Delivery Method Room Air Oxygen Flow Rate 0 Narrative Exam Narrative: NO ACUTE DISTRESS.? UNDERLYING DEMENTIA.? ALTERED MENTALLY HEAD ATRAUMATIC NORMOCEPHALIC NECK :? NO? ADENOPATHY NO CAROTID BRUITS EYE:?? PERRLA, NORMAL CONJUNCTIVA; NO JAUNDICE CHEST:? REGULAR RATE.? ? NO RUBS.?? ? NO MURMURS; NORMAL S1-S2 PULMONARY:? DECREASED BS OVER THE BASES.? MILD BIBASILAR CRACKLES NOTED; NO INCREASED DULLNESS TO PERCUSSION ABDOMEN:? SOFT.? NONDISTENDED.? BOWEL SOUNDS ARE PRESENT IN ALL 4 QUADRANTS.? EXTREMITIES: ? NO CYANOSIS OR? CLUBBING NOTED. NEURO:? CRANIAL NERVES 2-12 GROSSLY INTACT. NO FOCAL NEUROLOGICAL DEFICIT NOTED.? DEMENTIA.? VERSUS ?? DELIRIUM MSK:? NORMAL RANGE OF MOTION FOR AGE.? NO JOINT EFFUSION. SKIN:? FAIR SKIN TURGOR; NO ECCHYMOSIS.? ? PSYCH :? UNABLE TO ASSESS.?? ALTERED MENTALLY. CALM. COOPERATIVE TODAY Objective Labs Result Diagrams: 06/24/21 06:02 06/24/21 06:02 Labs: Laboratory Results - last 24 hr 06/24/21 06/24/21 06:02 06:02 WBC 3.8 L RBC 3.24 L Hgb 10.3 L Hct 31.1 L MCV 96.2 MCH 31.9 MCHC 33.1 RDW 15.5 H Plt Count 185 Neut % (Auto) 60.4 Lymph % (Auto) 25.9 [place] % (Auto) 10.3 Eos % (Auto) 3.1 Baso % (Auto) 0.3 Neut # (Auto) 2300 Lymph # (Auto) 1000 L [place] # (Auto) 400 Eos # (Auto) 100 Baso # (Auto) 0 Sodium 139 Potassium 4.2 Chloride 112 H Carbon Dioxide 26 BUN 23 H Creatinine 0.82 Estimated GFR > 60.0 BUN/Creatinine Ratio 28.0 H Glucose 106 Calcium 8.4 Phosphorus 3.1 Magnesium 2.0 Total Bilirubin 0.2 AST 21 ALT 11 Alkaline Phosphatase 40 Total Protein 5.7 L Albumin 3.0 L Globulin 2.7 Albumin/Globulin Ratio 1.1 PFSH Medical History (Updated 06/18/21 @ 22:39 by ADOLPH Lora) Generalized weakness Small bowel obstruction Surgical History (Updated 06/18/21 @ 22:39 by ADOLPH Lora) H/O thyroidectomy Family History Mother Diabetes mellitus Heart disease Father Diabetes mellitus Heart disease Brother Myocardial infarction CVA (cerebral vascular accident) Other Hypertension Social History household members: spouse Smoking Status: Never smoker alcohol intake: former Assessment & Plan Assessment & Plan narrative: PROBLEM LIST POSSIBLE SBO,? RESOLVED HYPONATREMIA.? STABLE SODIUM LEVEL DEMENTIA WITH .? BIPOLAR DISEASE PER HISTORY HYPERTENSION PER HISTORY ALTERED MENTAL STATUS.? CONSIDER ? DELIRIUM VERSUS WORSENING DEMENTIA SEIZURE DISORDER PER HISTORY.? ON HOME MED PLAN 06/24 SOME IMPROVEMENT IN MENTATION NOTED TODAY CASTANON CATHETER INSERTED YESTERDAY FOR STRICT INPUT AND OUTPUT GOOD URINE OUTPUT NOTED OVER THE LAST 24 HOURS SINCE BACK AND IV FLUID PATIENT IS MORE COOPERATIVE TODAY TOLERATING P.O. MEDS PSYCHIATRY TEAM CONSULTED AND AWAITING FORMAL RECOMMENDATIONS CONTINUE CURRENT MANAGEMENT OTHERWISE CONTINUE TRY TO INSPECT TO PSYCHIATRY FACILITY ONCE ABLE TO SECURE A BED PROGNOSIS IS GUARDED 06/23 ?MENTATION CONTINUED TO WORSEN ?PSYCHIATRY TEAM CONSULTED FOR? ASSISTANTS ? RECOMMENDATION TO INCREASED ZYPREXA ?WILL DISCONTINUE RISPERDAL ?PATIENT HAS A? MIDLINE IV ACCESS ?WILL START ON IV FLUID DUE TO DECREASED ORAL INTAKE ?MONITOR INPUT AND OUTPUT CLOSELY ?MONITOR ELECTROLYTES CLOSELY WELL ?REPEAT URINALYSIS INDICATED ?DAILY LEVEL ORDERED ?STRICT ASPIRATION PRECAUTIONS ?NURSING TO KEEP LIGHT ON IN THE ROOM AT ALL TIMES ?ADDITIONAL MANAGEMENT PER CLINICAL COURSE ?SPOKE TO AND CASE MANAGEMENT IN REGARD TO DISCHARGE PLANNING ?SPOKE TO? PSYCHIATRY DUE TODAY IN REGARD TO ? CONSULT WELL 06/22 PATIENT IS BECOMING MORE CONFUSED OVERNIGHT DECREASED URINATION ALSO REPORTED BY NURSING WILL ORDER LAB TESTING THIS AFTERNOON IV LINE TO? BE REINSERTED WILL ALSO PATIENT BACK ON IV FLUID WILL ALSO ORDER A CT SCAN OF THE BRAIN HOLD DISCHARGE FOR NOW ADDITIONAL MANAGEMENT PER CLINICAL COURSE 06/21 ?SPOKE TO CASE MANAGEMENT AT LENGTH IN REGARD TO DISCHARGE PLANNING GOING ON WORD ?TODAY ?SPOUSE IS AWARE OF THE DISCHARGE PLANNING WELL ?WE ARE UNABLE TO PLACE PATIENT INTO [facility] F[facility]ILITY AT THIS TIME ?SHE WILL BE DISCHARGED TO HOME LIKELY IN THE NEXT 24 HOURS WITH HOME HEALTH 2 ATTENDED TO DISCHARGE PATIENT TODAY PER HER REQUEST HOWEVER SHE IS UNABLE TO MAKE A FORMAL DECISION BECAUSE OF UNDERLYING DEMENTIA SPOKE TO AT LENGTH IN REGARD TO THE CASE PATIENT WILL BENEFIT TO STAY AT THE [facility] FACILITY VERSUS SENIOR CARE WILL SPEAK TO CASE MANAGEMENT IN REGARD TO POSSIBLE PLACEMENT TO SENIOR CARE IF ABLE PATIENT REMAINED IN THE HOSPITAL OVERNIGHT REPEAT LABS IN THE MORNING ADDITIONAL MANAGEMENT PER CLINICAL COURSE Time Spent With Patient Critical Care time: I spent a total of [] minutes of critical care time on this patient's care today; this time is exclusive of procedural time. Quality VTE Deep Vein Thrombosis/Pulmonary Embolism Present on Admission: No
[2021-06-24 17:13] VITALS: BP 159/83; PULSE 74; RESP 17; TEMP 36.7; O2SAT 100
[2021-06-24] MEDS: DIVALPROEX ER 250 MG TAB 1000 MG PO (21:30)
[2021-06-24] MEDS: MELATONIN 3 MG TABLET 6 MG PO (21:30)
[2021-06-24] MEDS: SODIUM CHLORIDE 0.9% FLUSH 10 ML IV (23:42)
[2021-06-25 04:25] VITALS: BP 163/66; PULSE 66; RESP 16; TEMP 36.6; O2SAT 100
[2021-06-25 06:16] LABS: Add Manual Diff / Slide Review NO; Basophils Absolute Auto 0 /uL (0-100); Basophils Percent Auto 0.3 % (0-2); Eosinophils Absolute Auto 100 /uL (0-450); Eosinophils Percent Auto 2.4 % (2-4); Hematocrit 30.2 % (36-46); Lymphocytes Absolute Auto 900 /uL (1100-4500); Lymphocytes Percent Auto 22.6 % (25-40); Mean Corpuscular HGB Conc 33.1 % (30-36); Mean Corpuscular Hemoglobin 31.9 PG (26-34); Mean Corpuscular Volume 96.3 fL (80-100); Monocytes Absolute Auto 400 /uL (0-900); Monocytes Percent Auto 9.7 % (3-14); Neutrophils Absolute Auto 2500 /uL (1500-7000); Platelet Count 193 X10^3/uL (150-400); Red Blood Cell Count 3.13 X10^6/uL (4.0-5.2); Red Cell Distribution Width 15.1 % (11.6-14.8); White Blood Cell Count 3.8 X10^3/uL (4.5-11.0)
[2021-06-25 06:18] LABS: Alanine Aminotransferase 12 IU/L (<35); Albumin Globulin Ratio 1.1 (1.0-2.8); Alkaline Phosphatase 46 U/L (38-126); Aspartate Aminotransferase 21 IU/L (14-36); BUN Creatinine Ratio 21.2 (6-22); Bilirubin Total 0.2 mg/dL (0.2-1.3); Blood Urea Nitrogen 14 mg/dL (7-17); Calcium 8.3 mg/dL (8.4-10.2); Carbon Dioxide 23 mmol/L (22-32); Chloride 114 mmol/L (98-107); Estimated Glomerular Filt Rate > 60.0 mL/min (>60); Globulin 2.7 g/dL (1.7-4.1); Glucose 100 mg/dL (80-110); HEMOLYSIS < 15 (0-50); Magnesium 1.8 mg/dL (1.6-2.3); Phosphorous 2.5 mg/dL (2.8-4.1); Potassium 3.8 mmol/L (3.4-5.1); Sodium 141 mmol/L (137-145); Total Protein 5.7 g/dL (6.3-8.2)
[2021-06-25] MEDS: SUCRALFATE 1 GM TABLET PO (06:53)
[2021-06-25] MEDS: LEVOTHYROXINE 75 MCG TABLET PO (06:53)
[2021-06-25 09:10] VITALS: BP 184/68; PULSE 73; RESP 18; TEMP 36.4; O2SAT 100
[2021-06-25] MEDS: FAMOTIDINE 20 MG TABLET PO (09:59)
[2021-06-25] MEDS: ENOXAPARIN 40 MG/0.4 ML SYRINGE SUBCUT (09:59)
[2021-06-25] MEDS: lamoTRIgine 100 MG TABLET 400 MG PO (09:59)
[2021-06-25] MEDS: LOSARTAN 25 MG TABLET PO (10:05)
[2021-06-25] MEDS: OLANZapine 2.5 MG TABLET 5 MG PO (10:05)
[2021-06-25] MEDS: MEMANTINE HCL 5 MG TABLET PO (10:06)
--- NOTE | 2021-06-25 11:10 | PT.IPTN ---
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) Bipolar disorder, unspecified (06/18/21) Unspecified intestinal obstruction, unspecified as to partial versus complete obstruction (06/18/21) Physical Therapy Treatment Note M2 PT-IP Current Condition Start: 06/19/21 10:49 Freq: Status: Active Protocol: Document 06/23/21 14:51 SP (Rec: 06/23/21 15:18 SP [id number]) Physical Therapy Current Condition Current Condition Evaluation Date 06/20/21 Treatment Diagnosis abdominal pain, impaired mobility/gait Onset Date 06/18/21 M3 PT-IP Subjective Start: 06/19/21 10:49 Freq: Status: Active Protocol: Document 06/25/21 10:34 KS (Rec: 06/25/21 12:36 KS [id number]) Subjective Physical Therapy Visit Type Type Treatment Note Visit Start Time 10:34 Visit Stop Time 11:10 Total Visit Minutes 36 Number of [employer] EN[employer] MECH[employer]IC Visits 4 Physical Therapy Visit Comments Patient Comments Pt requesting to use bathroom. M4 PT-IP Mobility and Gait Start: 06/19/21 10:49 Freq: Status: Active Protocol: Document 06/25/21 10:34 KS (Rec: 06/25/21 12:36 KS [id number]) PT-Bed Mobility Assessment Supine to Sit Supine to Sit Standby Assistance,Head of Bed Elevated Scooting Scooting to Edge of Bed Standby Assistance PT-Transfer Assessment Sit to and From Stand Sit to and from Stand Contact Guard Assistance,1 Person Assistance,Use of Upper Extremities Equipment Transfer Assistive Device Gait Belt,Front Wheeled Walker Transfers Transfer Destination Chair,Toilet Transfer Technique Pt ambulated w/ FWW Transfer Ability Level of Assist Moderate Assistance,1 Person Assistance,Use of Upper Extremities Comments Mobility Comments Pt in bed and requesting to use toilet. Pt SBA for bed mobility but requires frequent cues and redirection for all tasks. CGA for sit<>stand w/ FWW and able to ambulate to toilet but required Mod A for FWW management. After voiding, she ambulated to sink and maintained standing balance during hand washing and then ambulated to chair. CGA for stand<>sit and repositioning in chair. Pt requires increased time and frequet verbal and tactile cues throghout treatment. Left in chair w/ all needs in reach and alarm on. Gait Assessment Gait Gait Assistance Required: Moderate Assistance,1 Person Assist Distance (Feet) 25 Assistive Devices Assistive Device Gait Belt,Front Wheeled Walker Gait Deviations General Gait Pattern Antalgic,Decreased Stride Length,Decreased Feet Clearance,Flexed Trunk,Lateral Trunk Lean Factors Limiting Gait Function Factors Limiting Gait Function Abnormal Tonal Influences, Decreased Activity Tolerance, Decreased Strength,Difficulty Following Directions, Incoordination,Pain,Poor Balance,Poor Safety Awareness Comments Gait Comments Pt ambulated ~25 ft total w/ FWW requiring Mod A for FWW management as well as verbal and tactile cues. Stair Climbing Assessment Comments Stair Climbing Comments unable to assess. Pt has chair lift at home, bedroom on second floor of house PT-Balance Assessment Sitting Balance and Reactions Static Sitting Balance Ability Poor Dynamic Sitting Balance Ability Poor Standing Balance and Reactions Static Standing Balance Ability Fair Dynamic Standing Balance Ability Fair Device Used FWW M5 PT-IP Objective Assessments Start: 06/19/21 10:49 Freq: Status: Active Protocol: Document 06/20/21 09:39 DLM (Rec: 06/20/21 09:51 DLM [id number]) Orientation Orientation/Cognition Level of Alertness Alert Safety Awareness Decreased Safety Awareness Memory Description Short Term Impaired Gross Range of Motion Upper Extremity ROM Assessment Within Functional Limits Lower Extremity ROM Assessment Within Functional Limits Strength Upper Extremity Strength Assessment Within Functional Limits Lower Extremity Strength Assessment Bilaterally Impaired Hip 4/5 Knee 4/5 Ankle DF 5/5 Comments Strength Comments mild generalized deconditioning noted throughout Coordination Assessment Gross Coordination Gross Coordination WNL Sensation Assessment Sensation Gross Sensation WNL Comments Sensation Comments no changes reported by pt Muscle Tone Muscle Tone WNL Yes M6 PT-IP Treatment Start: 06/19/21 10:49 Freq: Status: Active Protocol: Document 06/25/21 10:34 KS (Rec: 06/25/21 12:36 KS [id number]) Physical Therapy Treatment Education Education Provided Safety M7 PT-IP Assessment and Plan Start: 06/19/21 10:49 Freq: Status: Active Protocol: Document 06/25/21 10:34 KS (Rec: 06/25/21 12:36 KS [id number]) PT Summary Assessment and Plan Potential Rehabilitation Potential Fair Status of Condition at Evaluation Evolving Summary Impairments Pain,ROM,Strength,Balance,Tone ,Cognition,Bed Mobility, Transfers,Gait,Activity Tolerance Progress Towards Goals Slow Progress due to Pain,Slow Progress due to Activity Tolerance,Slow Progress - Other Assessment Summary Pt continues to be limited by confusion, incoordination, and difficulty undetstanding or following direction. She is SBA for bed mobility, CGA for transfers, but when ambulating needed frequent verbal and tactile cues as well as Mod A for FWW management. Goals Transfer Goal Independent,Cane Gait Goal Independent,Cane,Front Wheel Walker Gait Distance 250 feet Days to Meet Goals 2 Frequency of Treatment Frequency Of Treatment Once a Day Treatment Plan Physical Therapy Treatment Plan Transfer Training,Gait Training,Therapeutic Exercise, Balance Retraining,Discharge Planning,Neuromuscular Re-ed Other Recommendations and Next Treatment bed mob, transfers Focus Precautions Other Precautions hx multiple abdominal surgeries, use gait belt high Recommendations To Nursing Amount of Assist Needed 2 Person Assist,PT/OT Assist Only Discharge Recommendations PT Discharge Recommendations SNF Rehab Transportation Needs at Discharge Stretcher/Ambulance
[2021-06-25] MEDS: ONDANSETRON 4 MG/2 ML INJ IV (12:29)
[2021-06-25] MEDS: HALOPERIDOL 5 MG/ML VIAL 2 MG IM (12:29)
--- NOTE | 2021-06-25 13:14 | CM.DPC ---
Addendum entered by Karen Rollins R.N. 06/25/21 16:14: CM Called the patients back at the request of Sarai OWEN to call the patients and give go over the IMM and HINN forms with him over the phone. CM called the patient and read the HINN letter to the patients Willard clya for word and IMM letter as well. CM placed copy of both letters with patients nurse Daniela to ready and sign if patient decides not to take the patient home tonight as previously arranged. CM will follow up in the morning to either follow the appeal process or arrange BLS transport home for the patient per Sarai OWEN and contact APS again and up date them on the current situation with the patient and the leaving at the hospital. Karen Rollins RN Case Manger Addendum entered by Karen Rollins R.N. 06/25/21 15:27: CM heard back from [facility] who stated that they cannot accept the patient at this time because she does not have any skillable needs for them to work on and so does not meet for SNF. DC plan is home with [facility] program with spouse picking her up today at 7:30pm Karen rollins RN Case Manger Original Note: DCP continued: AMANDEEP met with MD during rounds who stated the patient is ready for DC . stated Dr. Nichols consulted for mental health evaluation and determined that patient is showing signs of Sun downing and may have some hospital delirium. patient worked with PT today and they recommend SNF rehab however due to her Sun downing SNF would not be appropriate at this time. AMANDEEP Called [facility] program is ready for when the patient is DC home. INPT Psych was attempted by SRIDHAR Boyle at patients husbands request however due to patient having a catheter and not being up an ambulating around regularly [facility] was unable to locate an accepting facility. It was also stated that patient would benefit from going home or to a memory care facility. AMANDEEP spoke with patients who was very angry and was yelling repeatedly at . patients stated they cannot afford a memory care unit, assisted living or private pay care givers. AMANDEEP explained that [facility] has the high acuity program and that the patient has been referred to them and they have accepted her into that program. [facility] will schedule her after her DC from the hospital. Patients seemed to calm down and stated understanding of this plan. CM inform him that the patient is ready for Discharge today and will need to be picked up. Patients stated he will be here at 730pm to pick her up after he finishes work. CM let MD and patients nurse know of intended picker tender. After about 20mins Patients nurse Daniela informed CM that patients told her he will not be picking the patient up today and that he disagrees with the patients DC. CM spoke with the hospitalist who stated the patient is medically ready and he has already placed DC orders. CM told patients that according to our MD the patient is begin dc home today and he has the right to appeal but if appeal is denied that they could be billed. CM will give the patients a copy of the IMM and a HINN letter informing the patient and his about there medicare rights to appeal and the fact that they could be responsible for the cost. patients called [employer] ARCHIT[employer]i Zepeda and spoke with her about his ' s DC he was very upset and was yelling over the phone at her. Stating that he called [facility] and they said they can accept the [place] at [place]. Patients Willard was very verbally aggressive over the phone and INTEGRATION SOLUTION ARCHITECT let him know if he continued to yell at her she would need to hang up. He continued to yell and INTEGRATION SOLUTION ARCHITECT did hang up. However CM called Katerine at [facility] who stated according to November they cannot accept since the patient doesn't have any rehabilitation needs at this time. However Katerine stated she will review it but isn't sure they can accept her based on the fact that she does not have rehabilitation needs at this time. Lyn did say they have had this patient before and she usually doesn't take Zyprexa because in the past it has caused her to hear voices. AMANDEEP relayed that information to Jey Sandra. stated he talked with who was consulted and that this was the course recommended. Patients called CM back again and stated he would like a second opinion on DC. AMANDEEP explained that MD did consult . patients stated again he would like another hospitalist opinion. CM told Jey Barriga. Patients then hung up on AMANDEEP. Patients called CM back again for the third time and was much calmer this time. He stated he was worried about how to care for his in her current status. CM talked with him about memory care options, Assisted living option and private pay care givers on top of utilizing [facility] program. Willard stated he doesn't have the money to pay for memory care, assisted living or private pay care givers. CM asked the patient about applying for medicaid for his . he stated they make to much money for that. AMANDEEP informed the patient that we understand the hard ship he is facing with a loved one who is ill however we cannot continue to keep her here in the hospital when she is medically stable for DC. Patients stated understanding and stated [facility] and [facility] her home. AMANDEEP informed the patients nurse Daniela and Charge nurse Mara about DC plan however did place HINN form and IMM form to be signed in his red chart incase he decides he wont take the patient home at DC like he did previously this week. Karen Rollins RN Case Manger
--- NOTE | 2021-06-25 15:59 | CM.DPC ---
Spoke w/Sarai Mcintyre (CNO) regarding (Willard Vela) by phone. Per Sarai's instructions, Karen (DC event planner) will review HINN letter by phone and document. At first opportunity, HINN and IMM will be given to by RN or DC event planner in person. Per Sarai, current plan is for to warehouse picker patient tonight @ 7:30PM with [facility] to contact to begin services in next 24 hrs. Should not show up to warehouse picker patient this evening, tomorrow morning DC event planner will arrange appropriate transportation home for patient and notify of when she will be arriving. At that point, APS will be notified of 's failure to pickup patient on both 06/22/21 and 06/25/21. David Franco RN CM (Acting Cosmetics And Toiletries Salesperson) Care Management Dept.
--- NOTE | 2021-06-25 16:38 | P.PN_ITS ---
Subjective Subjective Date Patient Seen: 06/25/21 Interval history: ?PATIENT ORIGINALLY ADMITTED FOR POSSIBLE SMALL-BOWEL OBSTRUCTION ?RESOLVED VERSUS RULED OUT AT THIS TIME ?DISCHARGE HELD DUE TO CHANGE IN MENTATION ?PLAN TO TRY AND DISCHARGE TO PSYCHIATRY FACILITY FOR HELP WITH MEDICATION ADJUSTMENT ONCE ABLE ?PSYCHIATRY TEAM ? CONSULTED ?TODAY ?STILL UNABLE TO? OBTAIN A RELIABLE REVIEW OF SYSTEMS Exam Vital Signs (past 8 hours): - 06/25/21 09:10 Temperature 97.6 F Pulse Rate 73 Respiratory Rate 18 Blood Pressure 184/68 H Pulse Oximetry 100 Oxygen Delivery Method Room Air Oxygen Flow Rate 0 Narrative Exam Narrative: NO ACUTE DISTRESS.? UNDERLYING DEMENTIA.? ALTERED MENTALLY THIS AFTERNOON HEAD ATRAUMATIC NORMOCEPHALIC NECK :? NO? ADENOPATHY NO CAROTID BRUITS EYE:?? PERRLA, NORMAL CONJUNCTIVA; NO JAUNDICE CHEST:? REGULAR RATE.? ? NO RUBS.?? ? NO MURMURS; NORMAL S1-S2 PULMONARY:? DECREASED BS OVER THE BASES.? MILD BIBASILAR CRACKLES NOTED; NO INCREASED DULLNESS TO PERCUSSION ABDOMEN:? SOFT.? NONDISTENDED.? BOWEL SOUNDS ARE PRESENT IN ALL 4 QUADRANTS.? EXTREMITIES: ? NO CYANOSIS OR? CLUBBING NOTED. NEURO:? CRANIAL NERVES 2-12 GROSSLY INTACT. NO FOCAL NEUROLOGICAL DEFICIT NOTED.? DEMENTIA.? MSK:? NORMAL RANGE OF MOTION FOR AGE.? NO JOINT EFFUSION. SKIN:? FAIR SKIN TURGOR; NO ECCHYMOSIS.? ? PSYCH :? UNABLE TO ASSESS.?? DEMENTIA WITH POSSIBLE SUNDOWNING Objective Labs Result Diagrams: 06/25/21 05:55 06/25/21 05:55 Labs: Laboratory Results - last 24 hr 06/25/21 06/25/21 05:55 05:55 WBC 3.8 L RBC 3.13 L Hgb 10.0 L Hct 30.2 L MCV 96.3 MCH 31.9 MCHC 33.1 RDW 15.1 H Plt Count 193 Neut % (Auto) 65.0 Lymph % (Auto) 22.6 L Mercer % (Auto) 9.7 Eos % (Auto) 2.4 Baso % (Auto) 0.3 Neut # (Auto) 2500 Lymph # (Auto) 900 L Mercer # (Auto) 400 Eos # (Auto) 100 Baso # (Auto) 0 Sodium 141 Potassium 3.8 Chloride 114 H Carbon Dioxide 23 BUN 14 Creatinine 0.66 Estimated GFR > 60.0 BUN/Creatinine Ratio 21.2 Glucose 100 Calcium 8.3 L Phosphorus 2.5 L Magnesium 1.8 Total Bilirubin 0.2 AST 21 ALT 12 Alkaline Phosphatase 46 Total Protein 5.7 L Albumin 3.0 L Globulin 2.7 Albumin/Globulin Ratio 1.1 PFSH Medical History Generalized weakness Small bowel obstruction Surgical History H/O thyroidectomy Family History Mother Diabetes mellitus Heart disease Father Diabetes mellitus Heart disease Brother Myocardial infarction CVA (cerebral vascular accident) Other Hypertension Social History (Reviewed 06/18/21 @ 18:42 by Chantel Warren [facility]) household members: spouse Smoking Status: Never smoker alcohol intake: former Assessment & Plan Assessment & Plan narrative: PROBLEM LIST POSSIBLE SBO,? RESOLVED HYPONATREMIA.? STABLE SODIUM LEVEL DEMENTIA WITH SUNDOWNING.? ON ANTIPSYCHOTIC PER PSYCHIATRY RECOMMENDATIONS BIPOLAR DISEASE PER HISTORY. CONTINUE HOME MEDS HYPERTENSION PER HISTORY . CONTINUE CURRENT MANAGEMENT ALTERED MENTAL STATUS.? CONSIDER ? DELIRIUM VERSUS WORSENING DEMENTIA VERSUS SUNDOWNING ASSOCIATED WITH DEMENTIA SEIZURE DISORDER PER HISTORY.? ON HOME MED PLAN 06/25 PATIENT IN THE MORNING APPEARS TO BE CLINICALLY IMPROVED HOWEVER THE DAY PROGRESSES BY MID AFTERNOON, PATIENT BECOME MORE AND MORE AGITATED AND PSYCHOTIC NO AGGRESSIVE BEHAVIOR TOWARD STAFF. HER LABS REMAINED STABLE NO SIGNIFICANT METABOLIC DERANGEMENT NOTED WHICH COULD ACCOUNT FOR HER BEHAVIOR VITAL SIGNS ARE STABLE WELL. HER ISSUES ARE MOSTLY PSYCHIATRIST IN NATURE. SHE IS ON ZYPREXA WILL ONCE AGAIN ADD RISPERDAL ADDITIONAL MANAGEMENT PER CLINICAL COURSE ASSISTANCE FROM ALL INVOLVED IN THIS CASE GREATLY APPRECIATED DISCHARGE PER CLINICAL COURSE 06/24 ?SOME IMPROVEMENT IN MENTATION NOTED TODAY ?CASTANON CATHETER INSERTED YESTERDAY FOR STRICT INPUT AND OUTPUT ?GOOD URINE OUTPUT NOTED OVER THE LAST 24 HOURS SINCE BACK AND IV FLUID ?PATIENT IS MORE COOPERATIVE TODAY ? TOLERATING P.O. MEDS ?PSYCHIATRY TEAM CONSULTED AND AWAITING? FORMAL RECOMMENDATIONS ?CONTINUE CURRENT MANAGEMENT OTHERWISE ?CONTINUE TRY TO INSPECT TO PSYCHIATRY FACILITY ONCE ABLE TO SECURE A BED ?PROGNOSIS IS GUARDED 06/23 ?MENTATION CONTINUED TO WORSEN ?PSYCHIATRY TEAM CONSULTED FOR? ASSISTANTS ? RECOMMENDATION TO INCREASED ZYPREXA ?WILL DISCONTINUE RISPERDAL ?PATIENT HAS A? MIDLINE IV ACCESS ?WILL START ON IV FLUID DUE TO DECREASED ORAL INTAKE ?MONITOR INPUT AND OUTPUT CLOSELY ?MONITOR ELECTROLYTES CLOSELY WELL ?REPEAT URINALYSIS INDICATED ?DAILY LEVEL ORDERED ?STRICT ASPIRATION PRECAUTIONS ?NURSING TO KEEP LIGHT ON IN THE ROOM AT ALL TIMES ?ADDITIONAL MANAGEMENT PER CLINICAL COURSE ?SPOKE TO AND CASE MANAGEMENT IN REGARD TO DISCHARGE PLANNING ?SPOKE TO? PSYCHIATRY DUE TODAY IN REGARD TO ? CONSULT WELL 06/22 PATIENT IS BECOMING MORE CONFUSED OVERNIGHT DECREASED URINATION ALSO REPORTED BY NURSING WILL ORDER LAB TESTING THIS AFTERNOON IV LINE TO? BE REINSERTED WILL ALSO PATIENT BACK ON IV FLUID WILL ALSO ORDER A CT SCAN OF THE BRAIN HOLD DISCHARGE FOR NOW ADDITIONAL MANAGEMENT PER CLINICAL COURSE 06/21 ?SPOKE TO CASE MANAGEMENT AT LENGTH IN REGARD TO DISCHARGE PLANNING GOING ON WORD ?TODAY ?SPOUSE IS AWARE OF THE DISCHARGE PLANNING WELL ?WE ARE UNABLE TO PLACE PATIENT INTO DETENTION FACILITY AT THIS TIME ?SHE WILL BE DISCHARGED TO HOME LIKELY IN THE NEXT 24 HOURS WITH HOME HEALTH 2 ATTENDED TO DISCHARGE PATIENT TODAY PER HER REQUEST HOWEVER SHE IS UNABLE TO MAKE A FORMAL DECISION BECAUSE OF UNDERLYING DEMENTIA SPOKE TO AT LENGTH IN REGARD TO THE CASE PATIENT WILL BENEFIT TO STAY AT THE DETENTION FACILITY VERSUS SENIOR CARE WILL SPEAK TO CASE MANAGEMENT IN REGARD TO POSSIBLE PLACEMENT TO SENIOR CARE IF ABLE PATIENT REMAINED IN THE HOSPITAL OVERNIGHT REPEAT LABS IN THE MORNING ADDITIONAL MANAGEMENT PER CLINICAL COURSE Time Spent With Patient Critical Care time: I spent a total of [] minutes of critical care time on this patient's care today; this time is exclusive of procedural time. Quality VTE Deep Vein Thrombosis/Pulmonary Embolism Present on Admission: No
--- NOTE | 2021-06-25 18:36 | PC.NURSE ---
Fall:Bed alarm sounding, found pt on floor in a sitting position. She is globally disoriented only knowing her name today. She was trying to go somewhere but can't recall where or why. Has full rom. Did ask for her spouse a couple of times and she was told he was working but would be contacted. With assist of PT was able to get pt back to bed. BP 197/79 p 82 rr 14 T98.3. Pt denies hitting her head and no injury seen. dr. Bernard [facility] made aware of fall w/out injury and he came to see her. Pt kept trying to get oob and MD instructed to give IM haldol which was done. About 20 to 30 mins later patient was asleep. She has been sleeping ever since. Spouse made aware of fall. He is concerned about her discharge saying her mental status isn't at baseline. He has spoken to SS and MD about same. This jingle writer doesn't know pt. until today. The plan is still to d/c to home this evening when pt is done with work.
[2021-06-25 19:30] VITALS: BP 170/81; PULSE 72; RESP 18; TEMP 36.4; O2SAT 100
[2021-06-25] MEDS: HALOPERIDOL 5 MG/ML VIAL IV (21:59)
[2021-06-25] MEDS: SODIUM CHLORIDE 0.9% FLUSH 10 ML IV (22:04)
[2021-06-26 01:00] VITALS: BP 192/74; PULSE 61; RESP 18; TEMP 36.6; O2SAT 99
[2021-06-26 05:00] VITALS: BP 155/75; PULSE 66; RESP 18; TEMP 36.5; O2SAT 98
[2021-06-26] MEDS: LEVOTHYROXINE 75 MCG TABLET PO (06:43)
[2021-06-26 06:56] LABS: Add Manual Diff / Slide Review NO; Basophils Absolute Auto 0 /uL (0-100); Basophils Percent Auto 0.3 % (0-2); Eosinophils Absolute Auto 100 /uL (0-450); Eosinophils Percent Auto 1.7 % (2-4); Hematocrit 32.6 % (36-46); Hemoglobin 10.9 g/dL (12.0-16.0); Lymphocytes Absolute Auto 1000 /uL (1100-4500); Lymphocytes Percent Auto 23.1 % (25-40); Mean Corpuscular HGB Conc 33.5 % (30-36); Mean Corpuscular Hemoglobin 32.1 PG (26-34); Mean Corpuscular Volume 95.7 fL (80-100); Monocytes Absolute Auto 400 /uL (0-900); Monocytes Percent Auto 9.5 % (3-14); Neutrophils Absolute Auto 2900 /uL (1500-7000); Neutrophils Percent Auto 65.4 % (50-75); Platelet Count 216 X10^3/uL (150-400); Red Blood Cell Count 3.41 X10^6/uL (4.0-5.2); Red Cell Distribution Width 14.9 % (11.6-14.8); White Blood Cell Count 4.4 X10^3/uL (4.5-11.0)
[2021-06-26 07:09] LABS: Alanine Aminotransferase 13 IU/L (<35); Albumin 3.5 g/dL (3.5-5.0); Albumin Globulin Ratio 1.2 (1.0-2.8); Alkaline Phosphatase 57 U/L (38-126); Aspartate Aminotransferase 21 IU/L (14-36); BUN Creatinine Ratio 12.7 (6-22); Bilirubin Total 0.4 mg/dL (0.2-1.3); Blood Urea Nitrogen 8 mg/dL (7-17); Calcium 9.2 mg/dL (8.4-10.2); Carbon Dioxide 26 mmol/L (22-32); Chloride 110 mmol/L (98-107); Estimated Glomerular Filt Rate > 60.0 mL/min (>60); Glucose 95 mg/dL (80-110); HEMOLYSIS < 15 (0-50); Magnesium 1.8 mg/dL (1.6-2.3); Phosphorous 2.8 mg/dL (2.8-4.1); Potassium 3.7 mmol/L (3.4-5.1); Sodium 140 mmol/L (137-145); Total Protein 6.5 g/dL (6.3-8.2)
[2021-06-26 07:40] VITALS: BP 172/77; PULSE 76; RESP 16; TEMP 37.2; O2SAT 100
--- NOTE | 2021-06-26 08:06 | P.DS_ITS ---
History of Present Illness History of Present Illness Date Patient Seen: 06/26/21 Chief complaint: I am not sure why I am here. Discharge Providers Provider Date of admission: 06/18/21 20:21 Consults: 06/18/21 20:31 Consult to General Surgery Routine Comment: Dr. Camargo Consulting Provider: Shobha Camargo Reason for consultation: ileus, N/V Has provider been notified: Yes 06/18/21 22:18 Consult to Dietitian, Adult Routine Comment: Reason For Exam: severe protein calorie malnution 06/19/21 10:18 Consult to Physical Therapy Evaluate & Treat Comment: Physician Instructions: Evaluate and Treat 06/21/21 15:21 Consult to Home Health Routine Comment: partial SBO Reason For Exam: Set up HH RN/PT/OT/MOTORBIKE COURIER and possible HACH program 06/22/21 16:11 Consult to Dietitian, Adult Routine Comment: Reason For Exam: inadequate to poor intake. 06/23/21 14:52 Consult to Physician Routine Comment: Consulting Provider: Rubio Nichols Reason for consultation: evaluatio, psychiatric history Discharge provider: Jacqueline Rand MD Summary Hospital Course Hospital Course: PROBLEM LIST POSSIBLE SBO,? RESOLVED HYPONATREMIA.? STABLE SODIUM LEVEL DEMENTIA WITH SUNDOWNING.? ON ANTIPSYCHOTIC PER PSYCHIATRY RECOMMENDATIONS BIPOLAR DISEASE PER HISTORY.? CONTINUE HOME MEDS HYPERTENSION PER HISTORY .? CONTINUE CURRENT MANAGEMENT ALTERED MENTAL STATUS.? CONSIDER ? DELIRIUM VERSUS WORSENING DEMENTIA VERSUS SUNDOWNING ASSOCIATED WITH DEMENTIA SEIZURE DISORDER PER HISTORY.? ON HOME MED PLAN 06/25 ?PATIENT IN THE MORNING APPEARS TO BE CLINICALLY IMPROVED ?HOWEVER THE DAY PROGRESSES BY MID AFTERNOON, PATIENT BECOME MORE AND MORE AGITATED AND? PSYCHOTIC ?NO AGGRESSIVE BEHAVIOR? TOWARD STAFF. ?? HER LABS REMAINED STABLE ?NO SIGNIFICANT METABOLIC DERANGEMENT NOTED WHICH COULD ACCOUNT FOR HER BEHAVIOR ?VITAL SIGNS ARE STABLE WELL. ? HER ISSUES? ARE MOSTLY PSYCHIATRIST IN NATURE. ?SHE IS ON ZYPREXA ?WILL ONCE AGAIN ADD RISPERDAL ?ADDITIONAL MANAGEMENT PER CLINICAL COURSE ?ASSISTANCE FROM ALL INVOLVED IN THIS CASE GREATLY APPRECIATED ?? DISCHARGE PER CLINICAL COURSE 06/24 ?SOME IMPROVEMENT IN MENTATION NOTED TODAY ?CASTANON CATHETER INSERTED YESTERDAY FOR STRICT INPUT AND OUTPUT ?GOOD URINE OUTPUT NOTED OVER THE LAST 24 HOURS SINCE BACK AND IV FLUID ?PATIENT IS MORE COOPERATIVE TODAY ? TOLERATING P.O. MEDS ?PSYCHIATRY TEAM CONSULTED AND AWAITING? FORMAL RECOMMENDATIONS ?CONTINUE CURRENT MANAGEMENT OTHERWISE ?CONTINUE TRY TO INSPECT TO PSYCHIATRY FACILITY ONCE ABLE TO SECURE A BED ?PROGNOSIS IS GUARDED 06/23 ?MENTATION CONTINUED TO WORSEN ?PSYCHIATRY TEAM CONSULTED FOR? ASSISTANTS ? RECOMMENDATION TO INCREASED ZYPREXA ?WILL DISCONTINUE RISPERDAL ?PATIENT HAS A? MIDLINE IV ACCESS ?WILL START ON IV FLUID DUE TO DECREASED ORAL INTAKE ?MONITOR INPUT AND OUTPUT CLOSELY ?MONITOR ELECTROLYTES CLOSELY WELL ?REPEAT URINALYSIS INDICATED ?DAILY LEVEL ORDERED ?STRICT ASPIRATION PRECAUTIONS ?NURSING TO KEEP LIGHT ON IN THE ROOM AT ALL TIMES ?ADDITIONAL MANAGEMENT PER CLINICAL COURSE ?SPOKE TO AND CASE MANAGEMENT IN REGARD TO DISCHARGE PLANNING ?SPOKE TO? PSYCHIATRY DUE TODAY IN REGARD TO ? CONSULT WELL 06/22 PATIENT IS BECOMING MORE CONFUSED OVERNIGHT DECREASED URINATION ALSO REPORTED BY NURSING WILL ORDER LAB TESTING THIS AFTERNOON IV LINE TO? BE REINSERTED WILL ALSO PATIENT BACK ON IV FLUID WILL ALSO ORDER A CT SCAN OF THE BRAIN HOLD DISCHARGE FOR NOW ADDITIONAL MANAGEMENT PER CLINICAL COURSE 06/21 ?SPOKE TO CASE MANAGEMENT AT LENGTH IN REGARD TO DISCHARGE PLANNING GOING ON WORD ?TODAY ?SPOUSE IS AWARE OF THE DISCHARGE PLANNING WELL ?WE ARE UNABLE TO PLACE PATIENT INTO [facility] AT THIS TIME ?SHE WILL BE DISCHARGED TO HOME LIKELY IN THE NEXT 24 HOURS WITH HOME HEALTH 1/2 ATTENDED TO DISCHARGE PATIENT TODAY PER HER REQUEST HOWEVER SHE IS UNABLE TO MAKE A FORMAL DECISION BECAUSE OF UNDERLYING DEMENTIA SPOKE TO AT LENGTH IN REGARD TO THE CASE PATIENT WILL BENEFIT TO STAY AT THE [facility] FACILITY VERSUS SKILLED NURSING WILL SPEAK TO CASE MANAGEMENT IN REGARD TO POSSIBLE PLACEMENT TO SKILLED NURSING IF ABLE PATIENT REMAINED IN THE HOSPITAL OVERNIGHT REPEAT LABS IN THE MORNING ADDITIONAL MANAGEMENT PER CLINICAL COURSE Exam Vital Signs (past 8 hours): - 06/26/21 01:00 06/26/21 05:00 Temperature 97.9 F 97.7 F Pulse Rate 61 66 Respiratory Rate 18 18 Blood Pressure 192/74 H 155/75 H Pulse Oximetry 99 98 Oxygen Delivery Method Room Air Oxygen Flow Rate 0 Objective Labs Result Diagrams: 06/26/21 06:30 06/26/21 06:30 Labs: Laboratory Results - last 24 hr 06/26/21 06/26/21 06:30 06:30 WBC 4.4 L RBC 3.41 L Hgb 10.9 L Hct 32.6 L MCV 95.7 MCH 32.1 MCHC 33.5 RDW 14.9 H Plt Count 216 Neut % (Auto) 65.4 Lymph % (Auto) 23.1 L Charles % (Auto) 9.5 Eos % (Auto) 1.7 L Baso % (Auto) 0.3 Neut # (Auto) 2900 Lymph # (Auto) 1000 L Charles # (Auto) 400 Eos # (Auto) 100 Baso # (Auto) 0 Sodium 140 Potassium 3.7 Chloride 110 H Carbon Dioxide 26 BUN 8 Creatinine 0.63 Estimated GFR > 60.0 BUN/Creatinine Ratio 12.7 Glucose 95 Calcium 9.2 Phosphorus 2.8 Magnesium 1.8 Total Bilirubin 0.4 AST 21 ALT 13 Alkaline Phosphatase 57 Total Protein 6.5 Albumin 3.5 Globulin 3.0 Albumin/Globulin Ratio 1.2 PFSH Medical History Generalized weakness Small bowel obstruction Surgical History H/O thyroidectomy Family History Mother Diabetes mellitus Heart disease Father Diabetes mellitus Heart disease Brother Myocardial infarction CVA (cerebral vascular accident) Other Hypertension Social History household members: spouse Smoking Status: Never smoker alcohol intake: former Discharge Plan Discharge Plan Patient Disposition: Home Health Service Provider Discharge Comment: PLEASE REINSTATE [facility] HOME [facility] SERVICES Discharge orders & Medications Prescriptions: New scopolamine base [Transderm-Scop] 1 mg over 3 days Patch 3 Day 1 patch topical Q72H Qty: 6 0RF simethicone [Mi-Acid Gas Relief(simethicon)] 80 mg Tablet,Chewable 80 mg PO QID PRN (Reason: Flatulence) Qty: 30 0RF oxycodone 5 mg Tablet 5 mg PO Q4HR PRN (Reason: Pain, Moderate (4-6)) Qty: 20 0RF polyethylene glycol 3350 [Miralax] 17 gram powder in packet 17 g PO DAILY Qty: 100 0RF senna 8.6 mg capsule 8.6 mg PO BID Qty: 120 0RF sucralfate 1 gram Tablet 1 gm PO ACHS Qty: 120 0RF risperidone 0.25 mg Tablet 0.25 mg PO BID Qty: 90 0RF olanzapine 2.5 mg Tablet 2.5 mg PO BEDTIME Qty: 60 0RF famotidine [Pepcid AC] 20 mg Tablet 20 mg PO DAILY Qty: 120 0RF memantine [Namenda] 5 mg Tablet 5 mg PO DAILY Qty: 90 0RF aspirin 81 mg tablet,delayed release (DR/EC) 81 mg PO DAILY Qty: 60 0RF atorvastatin [Lipitor] 20 mg tablet 20 mg PO BEDTIME Qty: 60 0RF Continued losartan 25 MG tablet 25 mg PO QDAY Qty: 0 0RF levothyroxine [Synthroid] 75 MCG tablet 0.075 mg PO QDAY Qty: 0 0RF albuterol sulfate [Ventolin HFA] 90 MCG/PUFF HFA aerosol inhaler 2 puff INH Q4HP PRN (Reason: Bronchospasm) Qty: 0 0RF lamotrigine [Lamictal] 200 MG tablet 400 mg PO QDAY Qty: 0 0RF divalproex 500 MG tablet extended release 24 hr 1,000 mg PO HS Qty: 0 0RF acetaminophen [Tylenol Extra Strength] 500 MG tablet 1,000 mg PO Q6HP PRN (Reason: Abdominal Discomfort) 0RF famotidine [Pepcid AC] 20 mg Tablet 20 mg PO DAILY Qty: 60 0RF gabapentin 300 mg capsule 300 mg PO TID Qty: 120 0RF methocarbamol 500 mg Tablet 500 mg PO TID Qty: 90 0RF polyethylene glycol 3350 17 gram Powder In Packet 17 g PO BID Qty: 30 0RF melatonin 3 mg Tablet 6 mg PO BEDTIME Qty: 90 0RF metoclopramide HCl 5 mg Tablet 5 mg PO AC Qty: 90 0RF trazodone 50 mg Tablet 50 mg PO BEDTIME Qty: 90 0RF sucralfate 1 gram Tablet 1 gm PO ACHS Qty: 120 0RF tramadol 50 mg Tablet 50 mg PO TID Qty: 90 0RF oxycodone 5 mg tablet 5 mg PO Q6H PRN (Reason: pain) Qty: 20 0RF Discontinued dexamethasone 4 mg Tablet 4 mg PO BIDWM Qty: 6 0RF Diet/Activity/Treatments Diet: Low-fat, Low-sodium and Low-cholesterol Diet comment: MECHANICAL / GI SOFT ONLY Skin/Wound/Dressing Care Report to your healthcare provider any signs of infection, such as:: chills, fever and night sweats Visit Report/Discharge Packet Instructions: Delirium, DI for Ileus, How to Prevent Falls, DI for Nausea -- Adult, How to Care for Your Castanon Catheter -- Female, DI for Prescription Opioid Use Quality VTE Deep Vein Thrombosis/Pulmonary Embolism Present on Admission: No
--- NOTE | 2021-06-26 08:06 | P.PN_ITS ---
Subjective Subjective Date Patient Seen: 06/26/21 Interval history: She is seen in her room here on 06/26/2021 to follow-up her abdominal symptoms, now resolved and her current problem of severe generalized discomfort that produces significant delirium/encephalopathy usually in the late part of the day/evening. The last couple of days she has been clear minded in the morning and discharge is being planned but she then be comes inconsolable and discharge is declined by her . We have notbeen able to establish any medical reason for her behaviors. She has been seen by Psychiatry with recommendations for treatment of her bipolar type symptoms. She has had brain scans and me tabolic studies. It looks like her urine, although possibly already ordered, has not been evaluated for infection. She has had a catheter in. Her white blood count is 4.4 with a hemoglobin of 10.9. The CMP is normal. Her blood pressure is 155/75. This morning she began complaining of substernal chest pain with deep breathing. An EKG was done which did not show any signs of an acute AR or significant arrhythmia. She had been living/rehabbing at the [facility] but usually lives in [place] with her , who is present today. Exam Vital Signs (past 8 hours): - 06/26/21 01:00 06/26/21 05:00 Temperature 97.9 F 97.7 F Pulse Rate 61 66 Respiratory Rate 18 18 Blood Pressure 192/74 H 155/75 H Pulse Oximetry 99 98 Oxygen Delivery Method Room Air Oxygen Flow Rate 0 Narrative Exam Narrative: She is alert and oriented x3. She is somewhat suggestible/referential. She tends to have some echoing especially when her makes certain statements. Heart is regular rate and rhythm without murmur Lungs are clear to auscultation bilaterally Extremities have no ankle edema Abdomen is soft, bowel sounds positive, nontender, no organomegaly. Objective Labs Result Diagrams: 06/26/21 06:30 06/26/21 06:30 Labs: Laboratory Results - last 24 hr 06/26/21 06/26/21 06:30 06:30 WBC 4.4 L RBC 3.41 L Hgb 10.9 L Hct 32.6 L MCV 95.7 MCH 32.1 MCHC 33.5 RDW 14.9 H Plt Count 216 Neut % (Auto) 65.4 Lymph % (Auto) 23.1 L Ellis % (Auto) 9.5 Eos % (Auto) 1.7 L Baso % (Auto) 0.3 Neut # (Auto) 2900 Lymph # (Auto) 1000 L Ellis # (Auto) 400 Eos # (Auto) 100 Baso # (Auto) 0 Sodium 140 Potassium 3.7 Chloride 110 H Carbon Dioxide 26 BUN 8 Creatinine 0.63 Estimated GFR > 60.0 BUN/Creatinine Ratio 12.7 Glucose 95 Calcium 9.2 Phosphorus 2.8 Magnesium 1.8 Total Bilirubin 0.4 AST 21 ALT 13 Alkaline Phosphatase 57 Total Protein 6.5 Albumin 3.5 Globulin 3.0 Albumin/Globulin Ratio 1.2 PFSH Medical History Generalized weakness Small bowel obstruction Surgical History H/O thyroidectomy Family History Mother Diabetes mellitus Heart disease Father Diabetes mellitus Heart disease Brother Myocardial infarction CVA (cerebral vascular accident) Other Hypertension Social History household members: spouse Smoking Status: Never smoker alcohol intake: former Assessment & Plan Assessment & Plan narrative: This is a 70-year-old female who initially presented with ileus and small-bowel obstruction symptoms, now resolved, currently under evaluation for intermittent delirium/metabolic encephalopathy. POSSIBLE SBO,? RESOLVED HYPONATREMIA.? STABLE SODIUM LEVEL DEMENTIA WITH SUNDOWNING.? Continues on lamotrigine, risperidone, olanzapine and memantine per Psychiatry. BIPOLAR DISEASE PER HISTORY.? Continues on lamotrigine, risperidone and olanzapine. HYPERTENSION PER HISTORY .? Continue losartan. ALTERED MENTAL STATUS.? UA collected on 06/26 is suggestive of urinary tract infection. We will treat with ceftriaxone in case that is contributing to her delirium. Urine culture is pending SEIZURE DISORDER PER HISTORY.? No seizures on lamotrigine. Possible urinary tract infection. Begin ceftriaxone. UA with significant leukocytosis and white blood cell count on 06/26. Castanon catheter removed on 06/26. PLAN-home when mental status allows. She is not experiencing/demonstrating a consistent need for PT/OT intermediate facility rehab. 06/25 ?PATIENT IN THE MORNING APPEARS TO BE CLINICALLY IMPROVED ?HOWEVER THE DAY PROGRESSES BY MID AFTERNOON, PATIENT BECOME MORE AND MORE AGITATED AND? PSYCHOTIC ?NO AGGRESSIVE BEHAVIOR? TOWARD STAFF. ?? HER LABS REMAINED STABLE ?NO SIGNIFICANT METABOLIC DERANGEMENT NOTED WHICH COULD ACCOUNT FOR HER BEHAVIOR ?VITAL SIGNS ARE STABLE WELL. ? HER ISSUES? ARE MOSTLY PSYCHIATRIST IN NATURE. ?SHE IS ON ZYPREXA ?WILL ONCE AGAIN ADD RISPERDAL ?ADDITIONAL MANAGEMENT PER CLINICAL COURSE ?ASSISTANCE FROM ALL INVOLVED IN THIS CASE GREATLY APPRECIATED ?? DISCHARGE PER CLINICAL COURSE 06/24 ?SOME IMPROVEMENT IN MENTATION NOTED TODAY ?CASTANON CATHETER INSERTED YESTERDAY FOR STRICT INPUT AND OUTPUT ?GOOD URINE OUTPUT NOTED OVER THE LAST 24 HOURS SINCE BACK AND IV FLUID ?PATIENT IS MORE COOPERATIVE TODAY ? TOLERATING P.O. MEDS ?PSYCHIATRY TEAM CONSULTED AND AWAITING? FORMAL RECOMMENDATIONS ?CONTINUE CURRENT MANAGEMENT OTHERWISE ?CONTINUE TRY TO INSPECT TO PSYCHIATRY FACILITY ONCE ABLE TO SECURE A BED ?PROGNOSIS IS GUARDED 06/23 ?MENTATION CONTINUED TO WORSEN ?PSYCHIATRY TEAM CONSULTED FOR? ASSISTANTS ? RECOMMENDATION TO INCREASED ZYPREXA ?WILL DISCONTINUE RISPERDAL ?PATIENT HAS A? MIDLINE IV ACCESS ?WILL START ON IV FLUID DUE TO DECREASED ORAL INTAKE ?MONITOR INPUT AND OUTPUT CLOSELY ?MONITOR ELECTROLYTES CLOSELY WELL ?REPEAT URINALYSIS INDICATED ?DAILY LEVEL ORDERED ?STRICT ASPIRATION PRECAUTIONS ?NURSING TO KEEP LIGHT ON IN THE ROOM AT ALL TIMES ?ADDITIONAL MANAGEMENT PER CLINICAL COURSE ?SPOKE TO AND CASE MANAGEMENT IN REGARD TO DISCHARGE PLANNING ?SPOKE TO? PSYCHIATRY DUE TODAY IN REGARD TO ? CONSULT WELL 06/22 PATIENT IS BECOMING MORE CONFUSED OVERNIGHT DECREASED URINATION ALSO REPORTED BY NURSING WILL ORDER LAB TESTING THIS AFTERNOON IV LINE TO? BE REINSERTED WILL ALSO PATIENT BACK ON IV FLUID WILL ALSO ORDER A CT SCAN OF THE BRAIN HOLD DISCHARGE FOR NOW ADDITIONAL MANAGEMENT PER CLINICAL COURSE 06/21 ?SPOKE TO CASE MANAGEMENT AT LENGTH IN REGARD TO DISCHARGE PLANNING GOING ON WORD ?TODAY ?SPOUSE IS AWARE OF THE DISCHARGE PLANNING WELL ?WE ARE UNABLE TO PLACE PATIENT INTO RESIDENTIAL FACILITY AT THIS TIME ?SHE WILL BE DISCHARGED TO HOME LIKELY IN THE NEXT 24 HOURS WITH HOME HEALTH 2 ATTENDED TO DISCHARGE PATIENT TODAY PER HER REQUEST HOWEVER SHE IS UNABLE TO MAKE A FORMAL DECISION BECAUSE OF UNDERLYING DEMENTIA SPOKE TO AT LENGTH IN REGARD TO THE CASE PATIENT WILL BENEFIT TO STAY AT THE RESIDENTIAL FACILITY VERSUS LONG-TERM WILL SPEAK TO CASE MANAGEMENT IN REGARD TO POSSIBLE PLACEMENT TO LONG-TERM IF ABLE PATIENT REMAINED IN THE HOSPITAL OVERNIGHT REPEAT LABS IN THE MORNING ADDITIONAL MANAGEMENT PER CLINICAL COURSE Time Spent With Patient Critical Care time: I spent a total of [] minutes of critical care time on this patient's care today; this time is exclusive of procedural time. Quality VTE Deep Vein Thrombosis/Pulmonary Embolism Present on Admission: No
[2021-06-26] MEDS: SUCRALFATE 1 GM TABLET PO ×2 (09:58→22:10)
[2021-06-26] MEDS: MEMANTINE HCL 5 MG TABLET PO (09:58)
[2021-06-26] MEDS: lamoTRIgine 100 MG TABLET 400 MG PO (09:58)
[2021-06-26] MEDS: risperiDONE 0.25 MG TABLET 0.5 MG PO ×2 (09:58→22:11)
[2021-06-26] MEDS: FAMOTIDINE 20 MG TABLET PO (09:58)
[2021-06-26] MEDS: OLANZapine 2.5 MG TABLET 5 MG PO ×2 (09:58→22:11)
[2021-06-26] MEDS: ENOXAPARIN 40 MG/0.4 ML SYRINGE SUBCUT (09:59)
[2021-06-26] MEDS: LOSARTAN 25 MG TABLET PO (09:59)
[2021-06-26] MEDS: SODIUM CHLORIDE 0.9% FLUSH 10 ML IV ×2 (10:00→22:19)
--- NOTE | 2021-06-26 10:49 | PT.IPTN ---
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) Bipolar disorder, unspecified (06/18/21) Unspecified intestinal obstruction, unspecified as to partial versus complete obstruction (06/18/21) Nausea with vomiting, unspecified (06/18/21) Physical Therapy Treatment Note M2 PT-IP Current Condition Start: 06/19/21 10:49 Freq: Status: Active Protocol: Document 06/23/21 14:51 SP (Rec: 06/23/21 15:18 SP [id number]) Physical Therapy Current Condition Current Condition Evaluation Date 06/20/21 Treatment Diagnosis abdominal pain, impaired mobility/gait Onset Date 06/18/21 M3 PT-IP Subjective Start: 06/19/21 10:49 Freq: Status: Active Protocol: Document 06/26/21 10:30 KS (Rec: 06/26/21 13:47 KS [id number]) Subjective Physical Therapy Visit Type Type Treatment Note Visit Start Time 10:30 Visit Stop Time 10:49 Total Visit Minutes 19 Notes Pts present during treatment. Number of UPPER CUTTER Visits 5 Physical Therapy Visit Comments Patient Comments Pt agreeable to ambulation. Therapy Pain Assessment Pain When Pain Assessed During Mobility Pain Present Pain Present Pain Reported M4 PT-IP Mobility and Gait Start: 06/19/21 10:49 Freq: Status: Active Protocol: Document 06/26/21 10:30 KS (Rec: 06/26/21 13:47 KS [id number]) PT-Bed Mobility Assessment Supine to Sit Supine to Sit Standby Assistance,Head of Bed Elevated Scooting Scooting to Edge of Bed Standby Assistance PT-Transfer Assessment Sit to and From Stand Sit to and from Stand Contact Guard Assistance,1 Person Assistance,Use of Upper Extremities Equipment Transfer Assistive Device Gait Belt,Front Wheeled Walker Transfers Transfer Destination Chair Transfer Technique Pt ambulated w/ FWW Transfer Ability Level of Assist Contact Guard Assistance, Minimal Assistance,1 Person Assistance,Use of Upper Extremities Comments Mobility Comments Pt in bed upon arrival from therapy w/ in room and agreeable to ambulation. SBA for sup<>sit and scooting EOB and CGA for sit<>stand w/o AD. Pt took 3 steps from bed to chair CGA and cues but no AD. She then agreed to ambulate further w/ FWW and ambulated ~ 30 ft in room w/ FWW Min A at times to avoid obstacles. She reported fatigue and requested to sit down. Able to sit safely in chair and reposition herself w/ CGA and cues. Pt left in chair w/ in room and all needs in reach. Gait Assessment Gait Gait Assistance Required: Minimum Assistance,1 Person Assist Distance (Feet) 30 Assistive Devices Assistive Device Gait Belt,Front Wheeled Walker Gait Deviations General Gait Pattern Antalgic,Decreased Stride Length,Decreased Feet Clearance,Flexed Trunk,Lateral Trunk Lean Factors Limiting Gait Function Factors Limiting Gait Function Abnormal Tonal Influences, Decreased Activity Tolerance, Decreased Strength,Difficulty Following Directions, Incoordination,Pain,Poor Balance,Poor Safety Awareness Comments Gait Comments Pt ambulated ~30 ft total w/ FWW requiring Min A for FWW management for obstacle avoidance. Stair Climbing Assessment Comments Stair Climbing Comments unable to assess. Pt has chair lift at home, bedroom on second floor of house PT-Balance Assessment Sitting Balance and Reactions Static Sitting Balance Ability Poor Dynamic Sitting Balance Ability Poor Standing Balance and Reactions Static Standing Balance Ability Fair Dynamic Standing Balance Ability Fair Device Used FWW M5 PT-IP Objective Assessments Start: 06/19/21 10:49 Freq: Status: Active Protocol: Document 06/20/21 09:39 DLM (Rec: 06/20/21 09:51 DLM [id number]) Orientation Orientation/Cognition Level of Alertness Alert Safety Awareness Decreased Safety Awareness Memory Description Short Term Impaired Gross Range of Motion Upper Extremity ROM Assessment Within Functional Limits Lower Extremity ROM Assessment Within Functional Limits Strength Upper Extremity Strength Assessment Within Functional Limits Lower Extremity Strength Assessment Bilaterally Impaired Hip 4/5 Knee 4/5 Ankle DF 5/5 Comments Strength Comments mild generalized deconditioning noted throughout Coordination Assessment Gross Coordination Gross Coordination WNL Sensation Assessment Sensation Gross Sensation WNL Comments Sensation Comments no changes reported by pt Muscle Tone Muscle Tone WNL Yes M6 PT-IP Treatment Start: 06/19/21 10:49 Freq: Status: Active Protocol: Document 06/26/21 10:30 KS (Rec: 06/26/21 13:47 KS [id number]) Physical Therapy Treatment Education Education Provided Safety M7 PT-IP Assessment and Plan Start: 06/19/21 10:49 Freq: Status: Active Protocol: Document 06/26/21 10:30 KS (Rec: 06/26/21 13:47 KS [id number]) PT Summary Assessment and Plan Potential Rehabilitation Potential Fair Status of Condition at Evaluation Evolving Summary Impairments Pain,ROM,Strength,Balance,Tone ,Cognition,Bed Mobility, Transfers,Gait,Activity Tolerance Progress Towards Goals Slow Progress due to Pain,Slow Progress due to Activity Tolerance,Slow Progress - Other Assessment Summary Pt showed improved ability to utilize FWW today, requiring Min A and redirection at times for obstacle avoidance. She continues to be SBA to CGA for bed mobility and transfers. She benefits from verbal and tactile cues to complete tasks . Has quick approach to fatigue, but ambulated ~30 ft. Goals Transfer Goal Independent,Cane Gait Goal Independent,Cane,Front Wheel Walker Gait Distance 250 feet Days to Meet Goals 2 Frequency of Treatment Frequency Of Treatment Once a Day Treatment Plan Physical Therapy Treatment Plan Transfer Training,Gait Training,Therapeutic Exercise, Balance Retraining,Discharge Planning,Neuromuscular Re-ed Other Recommendations and Next Treatment bed mob, transfers Focus Precautions Other Precautions hx multiple abdominal surgeries, use gait belt high Recommendations To Nursing Amount of Assist Needed 1 Person Assist Discharge Recommendations PT Discharge Recommendations SNF Rehab Transportation Needs at Discharge Stretcher/Ambulance
[2021-06-26] MEDS: ONDANSETRON 4 MG/2 ML INJ IV ×2 (11:52→23:00)
--- NOTE | 2021-06-26 13:42 | CM.DPC ---
Addendum entered by Karen Johnson R.N. 06/26/21 15:08: Patient tested + for UTI and is starting IV Abx while awaiting urine cultures. DC held medical management will continue. Holding care conference since patient is now not cleared for DC. DC plan remains that patient will DC home with [facility] program once the patient is medically cleared for DC. Karen Johnson RN Case Manger Original Note: DCP continued:CM came in this morning and the HINN was not given to the patients due to patient falling and being given Haldol according to nursing. There is a new Hospitalist on today so CM needed to speak with them prior to giving HINN to patient. CM needs to make sure patient is still medically ready for DC after fall last night. AMANDEEP met with during am rounds who stated he wanted the patient to have a Urinalysis prior to DC just to make sure her altered mental status does not have something to do with an UTI. AMANDEEP , and Charge nurse Nicole all in agreement if the Urinalysis comes back negative than we will hold a care conference with the patients and AMANDEEP, and Charge nurse Nicole to discuss the patients medical needs and the DC plan. AMANDEEP will also provide the patient with another medicaid application for assisted care, Senior resources guide for private pay body care manager information and assisted living information he can start working on intermodal dispatcher planning with the patient. AMANDEEP will also provide a signature hand out again so he has the information for [facility] program. Depending on Urinalysis results patient will still have DC plans for today CM will give the patients the HINN form that was read to him yesterday and AMANDEEP will call [employer] to see if an appeal has been started by the patients . Amandeep will work with staff and the patients to facilitate appropriate home DC with services. If this cannot be done during care conference then Amandeep will contact [facility] and schedule a BLS transport for the patient to return home. AMANDEEP spoke with patients nurse Daniela to check on urinalysis and CM was told it has not been collected as of yet but she is planning on collecting it soon and sending it to the lab. AMANDEEP emphasized how important it is to get that collected and sent to the lab as soon as possible because DC planning and a care conference are on hold pending those results. AMANDEEP will continue to follow up to make sure an appropriate DC plan is made based on patients DC readiness. Karen Johnson RN Case Manger
[2021-06-26 14:32] LABS: Bacteria Urine Moderate (10-30); Culture Indicated Urine Specimen Cultured; RBC Urine 30-100/HPF (0-5/HPF); Squamous Epithelial Cell Urine 0-1 /HPF (0-5/HPF); WBC Urine 30-100/HPF (0-5/HPF)
[2021-06-26] MEDS: cefTRIAXone 1,000 MG in SODIUM CHLORIDE 0.9% 100 ML 200 ML IV (16:30)
[2021-06-26 19:40] VITALS: BP 183/79; PULSE 69; RESP 18; TEMP 36.1; O2SAT 99
[2021-06-26] MEDS: DIVALPROEX ER 250 MG TAB 1000 MG PO (22:10)
[2021-06-26 23:00] VITALS: BP 186/78; PULSE 78; RESP 18; TEMP 36.1; O2SAT 96
[2021-06-27 03:00] VITALS: BP 159/90; PULSE 74; RESP 18; TEMP 36.7; O2SAT 97
[2021-06-27] MEDS: LEVOTHYROXINE 75 MCG TABLET PO (05:15)
[2021-06-27 06:02] LABS: Magnesium 1.6 mg/dL (1.6-2.3); Phosphorous 3.4 mg/dL (2.8-4.1)
[2021-06-27 09:28] VITALS: BP 120/79; PULSE 95; RESP 18; TEMP 37.2; O2SAT 98
[2021-06-27] MEDS: ENOXAPARIN 40 MG/0.4 ML SYRINGE SUBCUT (09:52)
[2021-06-27] MEDS: lamoTRIgine 100 MG TABLET 400 MG PO (09:52)
[2021-06-27] MEDS: SUCRALFATE 1 GM TABLET PO ×2 (09:52→11:49)
[2021-06-27] MEDS: MAGNESIUM CHLORIDE 64 MG TABLET 128 MG PO (09:52)
[2021-06-27] MEDS: FAMOTIDINE 20 MG TABLET PO (09:52)
[2021-06-27 09:53] VITALS: BP 120/79; PULSE 95
[2021-06-27] MEDS: LOSARTAN 25 MG TABLET PO (09:53)
[2021-06-27] MEDS: SODIUM CHLORIDE 0.9% FLUSH 10 ML IV (09:54)
[2021-06-27] MEDS: MEMANTINE HCL 5 MG TABLET PO (09:54)
[2021-06-27] MEDS: risperiDONE 0.25 MG TABLET 0.5 MG PO (09:54)
[2021-06-27] MEDS: OLANZapine 2.5 MG TABLET 5 MG PO (09:56)
--- NOTE | 2021-06-27 10:40 | CM.DPC ---
DCP Continued: AMANDEEP met with Dr. Hyde during Am rounds he stated the patient is ready for DC today. Her UTI is being managed and does not need to be done here and would like to DC her home today. CM let patients nurse Cierra who stated she will work with [facility] and will have her ready for DC when her will pick her up. CM called the patients Willard and let him know his is ready for DC this morning and he will need to pick her up. Willard stated he is in [place] but will be back by 1:30pm and can pick her up then. CM let patients nurse know and Dr Hyde know of the DC plan and time. CM spoke to the patient who is clearer today still upbeat and rambling however was Oriented and alert x3. CM talked with Patient about DC plan home with her and she was agreeable and excited about going home. If for any reason there is a problem with the patients taking the patient home today as agreed then this AMANDEEP, SRIDHAR Ho, Dr. Hyde and Charge Nurse Marta will have a care conference with the patient and her to explain the DC reasoning and give the patients an HINN letter. Karen Johnson RN Case Manger
--- NOTE | 2021-06-27 10:41 | PC.NURSE ---
Addendum entered by Cierra Roberts R.N. 06/27/21 13:12: Patient prepared for discharge. Midline removed without complication. Patient amicable and up to chair after asking to get dressed. Appeared eager to go home. Upon husbands return from [place], patient stating she feels sick and would like to get into bed or go home assisted patient into the wheelchair in preparation for discharge. Patient's states he feels rushed reassured him that we are in no way rushing him, and that we would assist her back to the bed. Returned patient to bed. Patient's left to load care. Upon return he said, lets get her out of here. Gave extensive discharge instructions regarding medication, s/s of worsening condition, and expectations for the healing process. verbalized understanding. Administered Promethazine to the patient to assist with the nausea, patient encouraged to take small sips of water with pills to minimize the belching. Patient verbalized understanding. Patient assisted back to wheelchair and discharged to car accompanied by aide, nurse and . Original Note: Patient A/O x 3 this morning, a bit rambling but upbeat and jovial. Endorses having an appetite for loxs and bagel, is planning to go to [place] to get this for the patient. Pts VSS. RA, lungs CTA, denies pain, midline intact, remains saline locked. Brief on, has been using BSC to void. Denies chest pain, SOB, N/V. suggests she is doing much better this morning. Call light in reach. Bed alarm on.
[2021-06-27] MEDS: PROMETHAZINE 25 MG TABLET PO (12:49)
--- NOTE | 2021-06-27 19:49 | PM.DS.1 ---
History of Present Illness History of Present Illness Chief complaint: I am not sure why I am here. Narrative: francine Watkins is a 70 y.o. female with PMH of ulcerative colitis s/p subtotal colectomy with ileoanal pouch, Ellie fundoplication, small bowel fistula, multiple surgeries for adhesive disease, recent exploratory laparotomy last month at [facility] for free air with no source found who presents to the hospital with abdominal pain, nausea and limited vomiting. She was admitted and discharged from this facility on May 28 discharged on June 06 respectively for a similar presentation. She was had sudden onset of abdominal cramping and nausea. She is passing gas, she has had a bowel movement that is thin. No blood, no and small amounts of vomit. Denies fevers/chills. She has had an episode of pancreatitis in the past and never found out what the cause was. She has been at [facility], does not want to return and wants to be able to return home. In the ED workup was done, vitals were unremarkable. Labs notable for WBC 9.5, hemoglobin and hematocrit were 11.1 and 32.4 respectively, sodium 131, creatinine 0.72,Bilirubin 0.4, ast/alt 29/14. Albumin 3.8. Lipase 323 which has been trending down since her prior admissions.? CT of chest, abdomem, pelvis reported ??Postsurgical colectomy changes as above.? Mildly dilated loop of proximal bowel from the anastomotic site with scattered loops of more proximal small bowel.? Overall appearance is suggestive ileus/developing partial small bowel obstruction.? No perforation.?She was given IV fluid and pain medications in the ED, General surgery was consulted and she was admitted for further evaluation and treatment. Discharge Providers Provider Date of admission: 06/18/21 20:21 Discharge Date: 06/27/21 Consults: 06/18/21 20:31 Consult to General Surgery Routine Comment: Dr. Camargo Consulting Provider: Shobha Camargo Reason for consultation: ileus, N/V Has provider been notified: Yes 06/18/21 22:18 Consult to Dietitian, Adult Routine Comment: Reason For Exam: severe protein calorie malnution 06/19/21 10:18 Consult to Physical Therapy Evaluate & Treat Comment: Physician Instructions: Evaluate and Treat 06/21/21 15:21 Consult to Home Health Routine Comment: partial SBO Reason For Exam: Set up HH RN/PT/OT/[employer] and possible HACH program 06/22/21 16:11 Consult to Dietitian, Adult Routine Comment: Reason For Exam: inadequate to poor intake. 06/23/21 14:52 Consult to Physician Routine Comment: Consulting Provider: Rubio Nichols Reason for consultation: evaluatio, psychiatric history Discharge provider: Yonas Hyde MD Summary Hospital Course Discharge Diagnosis: 1. Small-bowel obstruction 2. Catheter related urinary tract infection 3. Dementia with sundowning 4. Acute metabolic encephalopathy possibly from UTI 5. Bipolar disease Patient was managed conservatively for possible SBO and did not require surgical intervention. However she became confused in the hospital and was sundowning. She did have a urinary catheter put in on admission and subsequent urinalysis on June 26 showed infection with urine culture growing Gram-negative bacilli. She does have past history of Pseudomonas UTI. She was started on IV Rocephin and being discharged on ciprofloxacin. Her mental status has completely cleared up to where she is back to baseline. She is tolerating normal diet as well. Status at Discharge Cognitive/behavioral status at discharge: at baseline, oriented Functional status at discharge: independent ambulation Overall status at discharge: patient is progressing back to baseline Time Spent with Patient Time spent: Greater than 30 minutes Exam Vital Signs (past 8 hours): Oxygen Delivery Method Room Air Oxygen Flow Rate 0 Narrative Exam Narrative: General: Alert and pleasant NAD Lungs: Clear Abdomen: Soft and nontender Neurological: Affect pleasant and cooperative, appropriately oriented Objective Labs Result Diagrams: 06/26/21 06:30 06/26/21 06:30 Labs: Laboratory Results - last 24 hr 06/26/21 06/27/21 13:41 05:35 Phosphorus 3.4 Magnesium 1.6 Urine RBC 30-100/hpf H Urine WBC 30-100/hpf H Ur Squamous Epith Cells 0-1 /hpf Urine Bacteria Moderate (10-30) H Ur Culture Indicated? Specimen cultured [facility] Medical History Generalized weakness Small bowel obstruction Surgical History H/O thyroidectomy Family History Mother Diabetes mellitus Heart disease Father Diabetes mellitus Heart disease Brother Myocardial infarction CVA (cerebral vascular accident) Other Hypertension Social History household members: spouse Smoking Status: Never smoker alcohol intake: former Discharge Plan Discharge Plan Patient Disposition: Home Health Service Provider Discharge Comment: You were treated for small bowel obstruction. You also have a catheter related UTI. Finish Cipro antibiotic course. Discharge orders & Medications Prescriptions: New scopolamine base [Transderm-Scop] 1 mg over 3 days Patch 3 Day 1 patch topical Q72H Qty: 6 0RF simethicone [Mi-Acid Gas Relief(simethicon)] 80 mg Tablet,Chewable 80 mg PO QID PRN (Reason: Flatulence) Qty: 30 0RF oxycodone 5 mg Tablet 5 mg PO Q4HR PRN (Reason: Pain, Moderate (4-6)) Qty: 20 0RF polyethylene glycol 3350 [Miralax] 17 gram powder in packet 17 g PO DAILY Qty: 100 0RF senna 8.6 mg capsule 8.6 mg PO BID Qty: 120 0RF sucralfate 1 gram Tablet 1 gm PO ACHS Qty: 120 0RF risperidone 0.25 mg Tablet 0.25 mg PO BID Qty: 90 0RF olanzapine 2.5 mg Tablet 2.5 mg PO BEDTIME Qty: 60 0RF famotidine [Pepcid AC] 20 mg Tablet 20 mg PO DAILY Qty: 120 0RF memantine [Namenda] 5 mg Tablet 5 mg PO DAILY Qty: 90 0RF aspirin 81 mg tablet,delayed release (DR/EC) 81 mg PO DAILY Qty: 60 0RF atorvastatin [Lipitor] 20 mg tablet 20 mg PO BEDTIME Qty: 60 0RF ciprofloxacin HCl 500 mg tablet 500 mg PO BID Qty: 14 0RF promethazine 25 mg tablet 25 mg PO TID PRN (Reason: nausea and vomiting) Qty: 20 0RF Continued losartan 25 MG tablet 25 mg PO QDAY Qty: 0 0RF levothyroxine [Synthroid] 75 MCG tablet 0.075 mg PO QDAY Qty: 0 0RF albuterol sulfate [Ventolin HFA] 90 MCG/PUFF HFA aerosol inhaler 2 puff INH Q4HP PRN (Reason: Bronchospasm) Qty: 0 0RF lamotrigine [Lamictal] 200 MG tablet 400 mg PO QDAY Qty: 0 0RF divalproex 500 MG tablet extended release 24 hr 1,000 mg PO HS Qty: 0 0RF acetaminophen [Tylenol Extra Strength] 500 MG tablet 1,000 mg PO Q6HP PRN (Reason: Abdominal Discomfort) 0RF famotidine [Pepcid AC] 20 mg Tablet 20 mg PO DAILY Qty: 60 0RF gabapentin 300 mg capsule 300 mg PO TID Qty: 120 0RF methocarbamol 500 mg Tablet 500 mg PO TID Qty: 90 0RF polyethylene glycol 3350 17 gram Powder In Packet 17 g PO BID Qty: 30 0RF melatonin 3 mg Tablet 6 mg PO BEDTIME Qty: 90 0RF metoclopramide HCl 5 mg Tablet 5 mg PO AC Qty: 90 0RF trazodone 50 mg Tablet 50 mg PO BEDTIME Qty: 90 0RF sucralfate 1 gram Tablet 1 gm PO ACHS Qty: 120 0RF tramadol 50 mg Tablet 50 mg PO TID Qty: 90 0RF oxycodone 5 mg tablet 5 mg PO Q6H PRN (Reason: pain) Qty: 20 0RF Discontinued dexamethasone 4 mg Tablet 4 mg PO BIDWM Qty: 6 0RF Diet/Activity/Treatments Diet: Low-fat, Low-sodium and Low-cholesterol Diet comment: MECHANICAL / GI SOFT ONLY Skin/Wound/Dressing Care Report to your healthcare provider any signs of infection, such as:: chills, fever and night sweats Visit Report/Discharge Packet Instructions: Delirium, DI for Ileus, How to Prevent Falls, DI for Nausea -- Adult, How to Care for Your Ty Catheter -- Female, DI for Prescription Opioid Use Quality VTE Deep Vein Thrombosis/Pulmonary Embolism Present on Admission: No
== END 2021-06-27 13:20 | disposition home or self-care (01) | DRG 388 ==
LOC: ED 17:05 → AC 20:22
PROVIDERS: Family Medicine; Hospitalist; Surgery; Admitting Provider Nurse Practitioner Family; Emergency Provider Nurse Practitioner Critical Care Medicine; Family Provider Internal Medicine; Referring Provider Nurse Practitioner Critical Care Medicine; Visit Provider Nurse Practitioner Family
DX: K56.609 Unspecified intestinal obstruction, unspecified as to partial versus complete obstruction (principal); G93.41 Metabolic encephalopathy; N39.0 Urinary tract infection, site not specified; T83.511A Infection and inflammatory reaction due to indwelling urethral catheter, initial encounter; E87.1 Hypo-osmolality and hyponatremia; E46 Unspecified protein-calorie malnutrition; F05 Delirium due to known physiological condition; Z68.20 Body mass index [BMI] 20.0-20.9, adult; K82.8 Other specified diseases of gallbladder; F03.90 Unspecified dementia, unspecified severity, without behavioral disturbance, psychotic disturbance, mood disturbance, and anxiety; F31.9 Bipolar disorder, unspecified; E03.9 Hypothyroidism, unspecified; R07.9 Chest pain, unspecified; I10 Essential (primary) hypertension; Z20.822 Contact with and (suspected) exposure to COVID-19
CPT/HCPCS: 36415; 51702; 70450; 71100; 73020; 73060; 74177; 80048; 80053; 80076; 80305; 81003; 81015; 82150; 82550; 83605; 83690; 83735; 84100; 84134; 84484; 85025; 85610; 86140; 87077; 87086; 87186; 87635; 90792; 93005; 93010; 96361; 96374; 96375; 96376; 97116; 97162; 97530; 99231; 99232; 99284; 99291; C9803; A9270; C9113; J0696; J1170; J1630; J1642; J1650; J2060; J2270; J2405; J2765

== ENCOUNTER 2023-08-18 12:20 | Emergency (ER) | payer MEDICARE, OTHER, SELFPAY ==
[2021-06-18 20:52] VITALS: BMI 22.3
[2023-08-18 12:29] VITALS: BP 144/79; PULSE 90; RESP 18; TEMP 37.1; O2SAT 98; BMI 22.8
--- NOTE | 2023-08-18 12:40 | DI.US.S_ITS ---
PROCEDURE: US PERIPH VENOUS LOW EXTREM LT INDICATIONS: Left lower extremety swelling TECHNIQUE: Real-time imaging, as well as color and pulse Doppler interrogation, were performed of the lower extremity deep veins from the inguinal ligament to the popliteal fossa, with documentation of the visualized calf veins. COMPARISON: None. FINDINGS: The common femoral, femoral, popliteal, and the visualized calf veins are normally compressible, and free of intraluminal thrombus. Color and pulse Doppler demonstrate normal phasic intraluminal flow. There is normal augmentation response to distal compression maneuver. IMPRESSION: No findings of lower extremity deep venous thrombosis. Dictated by: Quirino King M.D. on 08/18/2023 at 14:14 Approved by: Quirino King M.D. on 08/18/2023 at 14:14
[2023-08-18 12:47] VITALS: PULSE 88
[2023-08-18] MEDS: ONDANSETRON 4 MG ODT SL (12:51)
--- NOTE | 2023-08-18 13:06 | ED_ITS ---
<Statement entered by Slava Hollis MD - 08/18/23 20:43> I was available for consultation for this patient while they were in the ER but not consulted. My review of this note is my first interaction with this patient's chart. HPI - Extremity Problem General Chief complaint: Extremity Problem,Nontraumatic Stated complaint: suspected blood clot, sent by PCP Time Seen by Provider: 08/18/23 12:36 Source: patient Mode of arrival: Ambulatory History of Present Illness HPI Narrative: This is a 72-year-old female presents to the emergency department complaining of left lower extremity swelling for the last week. She was seen at the [facility] ED where she received a dose of Lasix which she states helped with her symptoms but left prior to an ultrasound being performed. No history of heart failure. States that the swelling improves with elevation of the legs. Denies any chest pain, shortness breath. Denies any significant erythema. Some tenderness to the left lower extremity. Denies any trauma. Related Data Home Medications Medication Instructions Recorded Confirmed albuterol sulfate 90 mcg/actuation 2 puff INH Q4HP PRN Bronchospasm 04/17/16 06/18/21 aerosol inhaler (Ventolin HFA) ##0 divalproex 500 mg tablet,extended 1,000 mg PO HS ##0 04/17/16 06/18/21 release 24 hr lamotrigine 200 mg tablet 400 mg PO QDAY ##0 04/17/16 06/18/21 (Lamictal) levothyroxine 75 mcg tablet 0.075 mg PO QDAY ##0 04/17/16 06/18/21 (Synthroid) losartan 25 mg tablet 25 mg PO QDAY ##0 04/17/16 06/18/21 acetaminophen 500 mg tablet 1,000 mg PO Q6HP PRN Abdominal 05/28/21 06/18/21 (Tylenol Extra Strength) Discomfort Previous Rx's Medication Instructions Recorded famotidine 20 mg tablet (Pepcid AC) 20 mg PO DAILY #60 tabs 06/06/21 gabapentin 300 mg capsule 300 mg PO TID #120 caps 06/06/21 melatonin 3 mg tablet 6 mg (2 x 3 mg) PO BEDTIME #90 tabs 06/06/21 methocarbamol 500 mg tablet 500 mg PO TID #90 tabs 06/06/21 metoclopramide HCl 5 mg tablet 5 mg PO AC #90 tabs 06/06/21 oxycodone 5 mg tablet 5 mg PO Q6H PRN pain #20 tabs 06/06/21 polyethylene glycol 3350 17 gram 17 g PO BID #30 ea 06/06/21 oral powder packet sucralfate 1 gram tablet 1 gm PO ACHS #120 tabs 06/06/21 tramadol 50 mg tablet 50 mg PO TID #90 tabs 06/06/21 trazodone 50 mg tablet 50 mg PO BEDTIME #90 tabs 06/06/21 oxycodone 5 mg tablet 5 mg PO Q4HR PRN Pain, Moderate 06/20/21 (4-6) #20 tabs polyethylene glycol 3350 17 gram 17 g PO DAILY #100 ea 06/20/21 oral powder packet (Miralax) scopolamine base 1 mg over 3 days 1 patch topical Q72H #6 ea 06/20/21 transdermal patch (Transderm-Scop) sennosides 8.6 mg capsule (senna) 8.6 mg PO BID #120 caps 06/20/21 simethicone 80 mg chewable tablet 80 mg PO QID PRN Flatulence #30 06/20/21 (Mi-Acid Gas Relief (simethicone)) tabs aspirin 81 mg tablet,delayed 81 mg PO DAILY #60 tabs 06/22/21 release atorvastatin 20 mg tablet (Lipitor) 20 mg PO BEDTIME #60 tabs 06/22/21 famotidine 20 mg tablet (Pepcid AC) 20 mg PO DAILY #120 tabs 06/22/21 memantine 5 mg tablet (Namenda) 5 mg PO DAILY #90 tabs 06/22/21 olanzapine 2.5 mg tablet 2.5 mg PO BEDTIME #60 tabs 06/22/21 risperidone 0.25 mg tablet 0.25 mg PO BID #90 tabs 06/22/21 sucralfate 1 gram tablet 1 gm PO ACHS #120 tabs 06/22/21 ciprofloxacin HCl 500 mg tablet 500 mg PO BID #14 tabs 06/27/21 promethazine 25 mg tablet 25 mg PO TID PRN nausea and 06/27/21 vomiting #20 tabs Allergies Allergy/AdvReac Type Severity Reaction Status Date / Time butorphanol Allergy Unknown Verified 06/18/21 18:33 Influenza Virus Vaccines Allergy Unknown ITCHING, Verified 06/18/21 18:33 BAD REACTION meperidine Allergy Unknown Verified 06/18/21 18:33 pneumococcal vaccine Allergy Unknown Verified 06/18/21 18:33 quetiapine Allergy Unknown Verified 06/18/21 18:33 shellfish derived Allergy Unknown Verified 06/18/21 18:33 neuroleptics AdvReac Unknown PT STATES Uncoded 09/27/17 12:31 HAD REALLY BAD REACTION, UNABLE TO STATE WHAT Review of Systems Review of Systems Narrative: GENERAL: Denies chills, fatigue, malaise, fever, sweats. HEENT: Denies sinus pain, ear pain, sore throat, difficulty swallowing, dizziness. RESPIRATORY: Denies dyspnea, cough, wheezing, hemoptysis, sputum. CARDIOVASCULAR: Denies chest pain, palpitations, orthopnea, edema, GASTROINTESTINAL: Denies nausea, vomiting, abdominal pain, diarrhea, constipation, melena. : Denies dysuria, frequency, incontinence, hematuria, urinary retention. MUSCULOSKELETAL: Bilateral lower extremity edema, worse on left SKIN: Denies rash, skin lesions, or other NEUROLOGIC: Denies weakness, headache, numbness, change in speech, confusion, seizures, incoordination. PSYCHIATRIC: No concerning psychosocial issues. 12 point review of systems is negative except for those stated above Patient History Medical History Generalized weakness Small bowel obstruction Surgical History H/O thyroidectomy Family History Mother Diabetes mellitus Heart disease Father Diabetes mellitus Heart disease Brother Myocardial infarction CVA (cerebral vascular accident) Other Hypertension Social History household members: spouse Smoking Status: Never smoker alcohol intake: former Smoking Status: Never smoker alcohol intake frequency: 0-2 drinks per day Substance Use Type: does not use Exam Narrative Exam Narrative: GENERAL: Well-developed patient, in mild distress. HEAD: Atraumatic. Normocephalic. EYES: Pupils equal round and reactive. Extraocular motions intact. No scleral icterus. No injection or drainage. ENT: Nose without bleeding, purulent drainage. Throat without erythema, tonsillar hypertrophy or exudate. Airway patent. NECK: Trachea midline. Non tender EXTREMITIES: 3+ pitting edema left lower extremity, 2+ in the right, no significant erythema or tenderness to the posterior calf. NEURO: AOx3. SKIN: No rash or erythema of visible areas CARDIOVASCULAR: Regular rate and rhythm without murmurs, gallops, or rubs. RESPIRATORY: Clear to auscultation. Breath sounds equal bilaterally. No wheezes, rales, or rhonchi. GASTROINTESTINAL: Abdomen soft, non-tender, nondistended. BACK: Nontender without deformity or crepitance. No flank tenderness. Initial Vital Signs Initial Vital Signs: Vital Signs Temperature 98.8 F 08/18/23 12:29 Pulse Rate 90 08/18/23 12:29 Respiratory Rate 18 08/18/23 12:29 Blood Pressure 144/79 H 08/18/23 12:29 Pulse Oximetry 98 08/18/23 12:29 Oxygen Delivery Method Room Air 08/18/23 12:29 Course Orders Ordered: ED Orders 08/18/23 12:40 US periph venous low extrem lt Stat Discontinued Medications Ondansetron HCl (Ondansetron 4 Mg Odt) 4 mg SL NOW ONE Stop: 08/18/23 12:47 Last Admin: 08/18/23 12:51 Dose: 4 mg Documented By: RB Vital Signs Vital signs: Vital Signs - 8 hr 08/18/23 12:29 08/18/23 12:47 08/18/23 14:23 Temperature 98.8 F 98.4 F Pulse Rate 90 73 Pulse Rate [Left Posterior Tibial] 88 Respiratory Rate 18 18 Blood Pressure 144/79 H 146/72 H Pulse Oximetry 98 100 Oxygen Delivery Method Room Air Room Air MDM - Extremity (Nontraumatic) Imaging Data US - DVT: Radiologist's Impression: [address] [address] Ultrasound Report Signed Patient: Shikha Watkins MR#: [id number] : 1950 Acct:[id number] Age/Sex: 72 / F Date of Service: 08/18/23 Loc: ED Accession Number: [id number] Procedure: US periph venous low extrem lt Ordering Provider: Kasi Beck P.A-C PROCEDURE: US PERIPH VENOUS LOW EXTREM LT INDICATIONS: Left lower extremety swelling TECHNIQUE: Real-time imaging, as well as color and pulse Doppler interrogation, were performed of the lower extremity deep veins from the inguinal ligament to the popliteal fossa, with documentation of the visualized calf veins. COMPARISON: None. FINDINGS: The common femoral, femoral, popliteal, and the visualized calf veins are normally compressible, and free of intraluminal thrombus. Color and pulse Doppler demonstrate normal phasic intraluminal flow. There is normal augmentation response to distal compression maneuver. IMPRESSION: No findings of lower extremity deep venous thrombosis. Dictated by: Quirino King M.D. on 08/18/2023 at 14:14 Approved by: Quirino King M.D. on 08/18/2023 at 14:14 MDM Narrative Medical decision making narrative: ED course: This is a 72-year-old female presents emergency department complaining of bilateral lower extremity edema. Had 2 to 3+ pitting edema bilaterally. Possibly cardiac related in nature although she denies any history of CHF. She denies any chest pain shortness of breath. Patient was sent here for DVT rule out. Ultrasound was negative for DVT. Recommended she elevate her legs with compressions toxins and to follow up with the primary care provider for possible diuretic initiation. CC: Lower extremity edema Complicating co-morbidities: Past medical history of ulcerative colitis, subtotal colectomy, Dennys fundoplication, small-bowel fistula, ex lap. Pancreatitis. Data collected from: Previous notes Medical records reviewed: Patient was last seen approximately 3 years ago due to abdominal pain. Past medical history of ulcerative colitis, subtotal colectomy, Dennys fundoplication, small-bowel fistula, ex lap. Pancreatitis. Differential considered, but not limited to: CHF, DVT, cellulitis Exam documented above, pertinent findings include: 2 to 3+ pitting edema bilateral lower extremities, no significant tenderness to palpation of the posterior calf or popliteal area Lab Test results independently reviewed as above. Pertinent findings: None obtained Imaging studies independently reviewed: Ultrasound negative for DVT Scores Used: None MIPS Elements: None Consultations: None Treatments: None Re-evaluations: None Discussion: Discussed plan with the patient was comfortable with the plan Diagnosis: Lower extremity edema Disposition: see below, along with detailed discharge instructions that have been reviewed with patient as well as indications for ED re-evaluation and additional outpatient follow up Discharge Plan Departure Patient Disposition: Home Clinical Impression: Lower extremity edema Activity Restrictions/Additional Instructions: Thank you for coming to the [facility] Emergency Department today. As we discussed your ultrasound was negative for blood clot in your leg. I recommend elevating your legs and purchasing compression stockings to help with the swelling until you are able to follow up with the primary care provider for possible diuretic medication. Please return to the emergency department if you develop any chest pain, shortness of breath, significant swelling, or any other concerning signs or symptoms. I hope you feel better soon. Please follow up with your primary care provider within a week if your symptoms continue. If you do not have a primary care provider please contact the [facility] Resource line at [phone]. They will ask some questions about your medical history and help you get set up with a provider in the community. Prescriptions: No Action losartan 25 MG tablet 25 mg PO QDAY Qty: 0 levothyroxine [Synthroid] 75 MCG tablet 0.075 mg PO QDAY Qty: 0 albuterol sulfate [Ventolin HFA] 90 MCG/PUFF HFA aerosol inhaler 2 puff INH Q4HP PRN (Reason: Bronchospasm) Qty: 0 lamotrigine [Lamictal] 200 MG tablet 400 mg PO QDAY Qty: 0 divalproex 500 MG tablet extended release 24 hr 1,000 mg PO HS Qty: 0 acetaminophen [Tylenol Extra Strength] 500 MG tablet 1,000 mg PO Q6HP PRN (Reason: Abdominal Discomfort) famotidine [Pepcid AC] 20 mg Tablet 20 mg PO DAILY Qty: 60 0RF gabapentin 300 mg capsule 300 mg PO TID Qty: 120 0RF methocarbamol 500 mg Tablet 500 mg PO TID Qty: 90 0RF polyethylene glycol 3350 17 gram Powder In Packet 17 g PO BID Qty: 30 0RF melatonin 3 mg Tablet 6 mg PO BEDTIME Qty: 90 0RF metoclopramide HCl 5 mg Tablet 5 mg PO AC Qty: 90 0RF trazodone 50 mg Tablet 50 mg PO BEDTIME Qty: 90 0RF sucralfate 1 gram Tablet 1 gm PO ACHS Qty: 120 0RF tramadol 50 mg Tablet 50 mg PO TID Qty: 90 0RF oxycodone 5 mg tablet 5 mg PO Q6H PRN (Reason: pain) Qty: 20 0RF scopolamine base [Transderm-Scop] 1 mg over 3 days Patch 3 Day 1 patch topical Q72H Qty: 6 0RF simethicone [Mi-Acid Gas Relief(simethicon)] 80 mg Tablet,Chewable 80 mg PO QID PRN (Reason: Flatulence) Qty: 30 0RF oxycodone 5 mg Tablet 5 mg PO Q4HR PRN (Reason: Pain, Moderate (4-6)) Qty: 20 0RF polyethylene glycol 3350 [Miralax] 17 gram powder in packet 17 g PO DAILY Qty: 100 0RF senna 8.6 mg capsule 8.6 mg PO BID Qty: 120 0RF sucralfate 1 gram Tablet 1 gm PO ACHS Qty: 120 0RF risperidone 0.25 mg Tablet 0.25 mg PO BID Qty: 90 0RF olanzapine 2.5 mg Tablet 2.5 mg PO BEDTIME Qty: 60 0RF famotidine [Pepcid AC] 20 mg Tablet 20 mg PO DAILY Qty: 120 0RF memantine [Namenda] 5 mg Tablet 5 mg PO DAILY Qty: 90 0RF aspirin 81 mg tablet,delayed release (DR/EC) 81 mg PO DAILY Qty: 60 0RF atorvastatin [Lipitor] 20 mg tablet 20 mg PO BEDTIME Qty: 60 0RF ciprofloxacin HCl 500 mg tablet 500 mg PO BID Qty: 14 0RF promethazine 25 mg tablet 25 mg PO TID PRN (Reason: nausea and vomiting) Qty: 20 0RF Referrals: Judy Davison MD [Primary Care Provider] - Stand Alone Forms: Patient Portal/API
[2023-08-18 14:23] VITALS: BP 146/72; PULSE 73; RESP 18; TEMP 36.9; O2SAT 100
== END 2023-08-18 14:45 | disposition home or self-care (01) ==
PROVIDERS: Emergency Provider Physician Assistant Medical; Family Provider Internal Medicine; PCP Internal Medicine
DX: R60.0 Localized edema (principal)
CPT/HCPCS: 93971; 99283

== ENCOUNTER 2023-12-14 12:58 | Emergency (ER) | payer MEDICARE, OTHER, SELFPAY ==
[2021-06-18 20:52] VITALS: BMI 22.3
[2023-12-14] VITALS (29 sets, daily range): BP systolic 97–174; BP diastolic 52–79; PULSE 55–91; RESP 20; TEMP 36.4; O2SAT 92–100; BMI 22.8
--- NOTE | 2023-12-14 13:43 | DI.CT.S_ITS ---
PROCEDURE: CT ABDOMEN PELVIS W CON INDICATIONS: Eval for obstruction TECHNIQUE: After the administration of intravenous contrast, axial sections acquired from the lung bases to the pubic symphysis. Coronal and sagittal reformats were performed. For radiation dose reduction, the following was used: automated exposure control, adjustment of mA and/or kV according to patient size. COMPARISON: [facility], CT, CT ABDOMEN PELVIS W CON, 05/28/2021, 4:59. [facility], CT, CT ABDOMEN PELVIS W CON, 06/18/2021, 18:37. FINDINGS: Image quality: Diagnostic. Lower Chest: No significant findings. ABDOMEN: Liver: No solid mass. Gallbladder: There is chronic gallbladder wall thickening present. There are now calcified gallstones which were not previously identified. Biliary ducts: No biliary dilation. Pancreas: No ductal dilation. Spleen: Size is within normal limits. Adrenal Glands: No adrenal nodules. Kidneys and Ureters: No hydronephrosis. No solid mass. No complex renal cystic lesion which requires follow up. Stomach and Bowel: Similar appearance of the bowel to previous. Remote partial colectomy. There are rectal anastomotic sutures. The anastomotic segment appears potentially chronically narrowed. Proximal to this, the colon is mildly dilated and air-filled. No dilated small bowel loops are identified. Peritoneum: No abnormal intraperitoneal fluid. No free air. Ventral Wall: No significant ventral hernia. Abdominal Nodes: No retroperitoneal or mesenteric adenopathy by size criteria. Vessels: Aorta and inferior vena cava are normal in size. PELVIS: Pelvic Organs: Suspect subtotal hysterectomy.. Bladder: No bladder wall thickening, accounting for underdistention. Pelvic Nodes: No enlarged lymph nodes. Miscellaneous: No inguinal hernias are seen. Bones: No aggressive osseous abnormality. Remote severe L2 compression. IMPRESSION: 1. Remote partial colectomy with possible rectal anastomotic stricture in dilatation of colon proximal to this point, not abnormally dilated. Normal caliber of small bowel. 2. Question chronic cholecystitis. 3. Severe chronic L2 compression. Comment: Consider nonemergent bone densitometry. Dictated by: Nilesh Mcclelland M.D. on 12/14/2023 at 15:58 Approved by: Nilesh Mcclelland M.D. on 12/14/2023 at 16:09
--- NOTE | 2023-12-14 13:57 | ED.GENADULT ---
HPI - General Adult General Chief complaint: Abdominal Pain Stated complaint: balance problem, vomiting, diff walking Time Seen by Provider: 12/14/23 13:11 Source: patient Mode of arrival: Ambulatory History of Present Illness HPI narrative: Patient is a 73-year-old female. Has had what she describes as a ?total colectomy? after having Crohn's disease. Has had multiple issues with her abdomen since then. Most recently was seen at an outside facility for persistent alternating diarrhea and constipation. She states she was diagnosed with an ileus. Was also told that potentially she had gallbladder issues. She was here for evaluation of continued symptoms, vomiting, difficulty walking secondary she thinks is dehydration. No fevers. Related Data Home Medications Medication Instructions Recorded Confirmed albuterol sulfate 90 mcg/actuation 2 puff INH Q4HP PRN Bronchospasm 04/17/16 06/18/21 aerosol inhaler (Ventolin HFA) ##0 divalproex 500 mg tablet,extended 1,000 mg PO HS ##0 04/17/16 06/18/21 release 24 hr lamotrigine 200 mg tablet 400 mg PO QDAY ##0 04/17/16 06/18/21 (Lamictal) levothyroxine 75 mcg tablet 0.075 mg PO QDAY ##0 04/17/16 06/18/21 (Synthroid) losartan 25 mg tablet 25 mg PO QDAY ##0 04/17/16 06/18/21 acetaminophen 500 mg tablet 1,000 mg PO Q6HP PRN Abdominal 05/28/21 06/18/21 (Tylenol Extra Strength) Discomfort Previous Rx's Medication Instructions Recorded famotidine 20 mg tablet (Pepcid AC) 20 mg PO DAILY #60 tabs 06/06/21 gabapentin 300 mg capsule 300 mg PO TID #120 caps 06/06/21 melatonin 3 mg tablet 6 mg (2 x 3 mg) PO BEDTIME #90 tabs 06/06/21 methocarbamol 500 mg tablet 500 mg PO TID #90 tabs 06/06/21 metoclopramide HCl 5 mg tablet 5 mg PO AC #90 tabs 06/06/21 oxycodone 5 mg tablet 5 mg PO Q6H PRN pain #20 tabs 06/06/21 polyethylene glycol 3350 17 gram 17 g PO BID #30 ea 06/06/21 oral powder packet sucralfate 1 gram tablet 1 gm PO ACHS #120 tabs 06/06/21 tramadol 50 mg tablet 50 mg PO TID #90 tabs 06/06/21 trazodone 50 mg tablet 50 mg PO BEDTIME #90 tabs 06/06/21 oxycodone 5 mg tablet 5 mg PO Q4HR PRN Pain, Moderate 06/20/21 (4-6) #20 tabs polyethylene glycol 3350 17 gram 17 g PO DAILY #100 ea 06/20/21 oral powder packet (Miralax) scopolamine base 1 mg over 3 days 1 patch topical Q72H #6 ea 06/20/21 transdermal patch (Transderm-Scop) sennosides 8.6 mg capsule (senna) 8.6 mg PO BID #120 caps 06/20/21 simethicone 80 mg chewable tablet 80 mg PO QID PRN Flatulence #30 06/20/21 (Mi-Acid Gas Relief (simethicone)) tabs aspirin 81 mg tablet,delayed 81 mg PO DAILY #60 tabs 06/22/21 release atorvastatin 20 mg tablet (Lipitor) 20 mg PO BEDTIME #60 tabs 06/22/21 famotidine 20 mg tablet (Pepcid AC) 20 mg PO DAILY #120 tabs 06/22/21 memantine 5 mg tablet (Namenda) 5 mg PO DAILY #90 tabs 06/22/21 olanzapine 2.5 mg tablet 2.5 mg PO BEDTIME #60 tabs 06/22/21 risperidone 0.25 mg tablet 0.25 mg PO BID #90 tabs 06/22/21 sucralfate 1 gram tablet 1 gm PO ACHS #120 tabs 06/22/21 ciprofloxacin HCl 500 mg tablet 500 mg PO BID #14 tabs 06/27/21 promethazine 25 mg tablet 25 mg PO TID PRN nausea and 06/27/21 vomiting #20 tabs Allergies Allergy/AdvReac Type Severity Reaction Status Date / Time butorphanol Allergy Unknown Verified 06/18/21 18:33 Influenza Virus Vaccines Allergy Unknown ITCHING, Verified 06/18/21 18:33 BAD REACTION meperidine Allergy Unknown Verified 06/18/21 18:33 pneumococcal vaccine Allergy Unknown Verified 06/18/21 18:33 quetiapine Allergy Unknown Verified 12/31/21 18:33 shellfish derived Allergy Unknown Verified 06/18/21 18:33 neuroleptics AdvReac Unknown PT STATES Uncoded 09/27/17 12:31 HAD REALLY BAD REACTION, UNABLE TO STATE WHAT Review of Systems Review of Systems Narrative: See HPI Patient History Medical History Generalized weakness Small bowel obstruction Surgical History H/O thyroidectomy Family History Mother Diabetes mellitus Heart disease Father Diabetes mellitus Heart disease Brother Myocardial infarction CVA (cerebral vascular accident) Other Hypertension Social History household members: spouse Smoking Status: Never smoker alcohol intake: former Smoking Status: Never smoker alcohol intake frequency: 0-2 drinks per day Substance Use Type: does not use Exam Initial Vital Signs Initial Vital Signs: Vital Signs Pulse Oximetry 94 12/14/23 13:12 Const General: cooperative and No ill appearing HENPR Head: normal to inspection and normocephalic Resp Effort & Inspection: normal respiratory effort Auscultation: clear to auscultation bilaterally Cardio Rate: regular rate Rhythm: regular rhythm GI Inspection: non-distended Neuro General: patient alert and patient awake Course Orders Ordered: ED Orders 12/14/23 13:43 CT abdomen pelvis w con Stat 12/14/23 13:51 Complete Blood Count AUTO DIFF Stat Comprehensive Metabolic Panel Stat Lipase Stat 12/14/23 17:44 Consult to General Surgery Stat Discontinued Medications Diphenhydramine HCl (Diphenhydramine 50 Mg/Ml Vial) 25 mg IV NOW ONE Stop: 12/14/23 14:14 Last Admin: 12/14/23 14:19 Dose: 25 mg Documented By: DEISY Sodium Chloride (Normal Saline 0.9%) 1,000 mls @ 1,000 mls/hr IV BOLUS ONE Stop: 12/14/23 14:41 Last Infusion: 12/14/23 15:13 Dose: Infused Documented By: Admin: 12/14/23 14:07 Dose: 1,000 mls/hr Documented By: DEISY Ketorolac Tromethamine (Ketorolac 30 Mg/Ml Vial) 30 mg IV NOW ONE Stop: 12/14/23 13:58 Last Admin: 12/14/23 14:08 Dose: 30 mg Documented By: DEISY Methylprednisolone (Methylprednisolone 125 Mg/2 Ml Vial) 125 mg IV NOW ONE Stop: 12/14/23 14:14 Last Admin: 12/14/23 14:24 Dose: Not Given Documented By: DEISY Morphine Sulfate (Morphine 4 Mg/Ml Inj) 4 mg IV NOW ONE Stop: 12/14/23 16:52 Last Admin: 12/14/23 16:57 Dose: 4 mg Documented By: COREY Ondansetron HCl (Ondansetron 4 Mg/2 Ml Inj) 4 mg IV NOW ONE Stop: 12/14/23 17:45 Vital Signs Vital signs: Vital Signs - 8 hr 12/14/23 13:12 12/14/23 13:13 12/14/23 13:13 Temperature Pulse Rate 71 Respiratory Rate Blood Pressure 157/70 H Pulse Oximetry 94 92 Oxygen Delivery Method 12/14/23 13:29 12/14/23 13:30 12/14/23 14:00 Temperature 97.6 F Pulse Rate 67 70 70 Respiratory Rate 20 Blood Pressure 157/70 H Pulse Oximetry 97 100 95 Oxygen Delivery Method Room Air 12/14/23 14:30 12/14/23 14:49 12/14/23 14:49 Temperature Pulse Rate 62 64 Respiratory Rate Blood Pressure 131/60 Pulse Oximetry 97 98 Oxygen Delivery Method 12/14/23 15:00 12/14/23 15:30 12/14/23 16:00 Temperature Pulse Rate 64 61 63 Respiratory Rate Blood Pressure Pulse Oximetry 98 97 98 Oxygen Delivery Method 12/14/23 16:20 12/14/23 16:20 12/14/23 16:30 Temperature Pulse Rate 63 Respiratory Rate Blood Pressure 139/66 152/71 H Pulse Oximetry 98 Oxygen Delivery Method 12/14/23 16:30 12/14/23 17:02 12/14/23 17:03 Temperature Pulse Rate 55 L Respiratory Rate Blood Pressure 174/79 H Pulse Oximetry 98 100 Oxygen Delivery Method 12/14/23 17:03 Temperature Pulse Rate 65 Respiratory Rate Blood Pressure Pulse Oximetry 97 Oxygen Delivery Method Medical Decision Making Medical Records Medical records reviewed: Yes I reviewed the patient's medical records. Lab Data Lab results reviewed: Yes I reviewed the patient's lab results. 12/14/23 13:51 12/14/23 13:51 Labs: Lab Results 12/14/23 Range/Units 13:51 WBC 5.3 (4.5-11.0) X10^3/uL RBC 3.65 L (4.0-5.2) X10^6/uL Hgb 12.2 (12.0-16.0) g/dL Hct 36.1 (36-46) % MCV 98.9 (80-100) fL MCH 33.4 (26-34) PG MCHC 33.8 (30-36) % RDW 13.0 (11.6-14.8) % Plt Count 230 (150-400) X10^3/uL Neut % (Auto) 63.7 (50-75) % Lymph % (Auto) 27.5 (25-40) % [place] % (Auto) 8.2 (3-14) % Eos % (Auto) 0.2 L (2-4) % Baso % (Auto) 0.4 (0-2) % Neut # (Auto) 3400 (4714-5140) /uL Lymph # (Auto) 1500 (1858-4896) /uL [place] # (Auto) 400 (0-900) /uL Eos # (Auto) 0 (0-450) /uL Baso # (Auto) 0 (0-100) /uL Sodium 134 L (137-145) mmol/L Potassium 4.4 (3.4-5.1) mmol/L Chloride 107 (98-107) mmol/L Carbon Dioxide 23 (22-32) mmol/L BUN 28 H (7-17) mg/dL Creatinine 1.00 (0.52-1.04) mg/dL Estimated GFR > 60 (>60) mL/min BUN/Creatinine Ratio 28.0 H (6-22) Glucose 98 (80-110) mg/dL Calcium 8.7 (8.4-10.2) mg/dL Total Bilirubin 0.5 (0.2-1.3) mg/dL AST 24 (14-36) IU/L ALT 13 (<35) IU/L Alkaline Phosphatase 78 (38-126) U/L Total Protein 6.8 (6.3-8.2) g/dL Albumin 3.8 (3.5-5.0) g/dL Globulin 3.0 (1.7-4.1) g/dL Albumin/Globulin Ratio 1.3 (1.0-2.8) Lipase 131 (23-300) U/L Imaging Data CT scan - abdomen/pelvis: Radiologist's Impression: PROCEDURE: CT ABDOMEN PELVIS W CON INDICATIONS: Eval for obstruction TECHNIQUE: After the administration of intravenous contrast, axial sections acquired from the lung bases to the pubic symphysis. Coronal and sagittal reformats were performed. For radiation dose reduction, the following was used: automated exposure control, adjustment of mA and/or kV according to patient size. COMPARISON: Located Within [facility], CT, CT ABDOMEN PELVIS W CON, 05/28/2021, 4:59. Located Within [facility], CT, CT ABDOMEN PELVIS W CON, 06/18/2021, 18:37. FINDINGS: Image quality: Diagnostic. Lower Chest: No significant findings. ABDOMEN: Liver: No solid mass. Gallbladder: There is chronic gallbladder wall thickening present. There are now calcified gallstones which were not previously identified. Biliary ducts: No biliary dilation. Pancreas: No ductal dilation. Spleen: Size is within normal limits. Adrenal Glands: No adrenal nodules. Kidneys and Ureters: No hydronephrosis. No solid mass. No complex renal cystic lesion which requires follow up. Stomach and Bowel: Similar appearance of the bowel to previous. Remote partial colectomy. There are rectal anastomotic sutures. The anastomotic segment appears potentially chronically narrowed. Proximal to this, the colon is mildly dilated and air-filled. No dilated small bowel loops are identified. Peritoneum: No abnormal intraperitoneal fluid. No free air. Ventral Wall: No significant ventral hernia. Abdominal Nodes: No retroperitoneal or mesenteric adenopathy by size criteria. Vessels: Aorta and inferior vena cava are normal in size. PELVIS: Pelvic Organs: Suspect subtotal hysterectomy.. Bladder: No bladder wall thickening, accounting for underdistention. Pelvic Nodes: No enlarged lymph nodes. Miscellaneous: No inguinal hernias are seen. Bones: No aggressive osseous abnormality. Remote severe L2 compression. IMPRESSION: 1. Remote partial colectomy with possible rectal anastomotic stricture in dilatation of colon proximal to this point, not abnormally dilated. Normal caliber of small bowel. 2. Question chronic cholecystitis. 3. Severe chronic L2 compression. Comment: Consider nonemergent bone densitometry. MDM Narrative Medical decision making narrative: CT scan shows stricture of the anastomotic region I discuss this with Dr. Tory on-call for General surgery who stated that the patient can be admitted to the general surgery service. They will discuss a sigmoidoscopy with the patient potential dilation of the anastomosis. Discussed the need for admission with the patient. She expressed understanding and agreement with plan. Discharge Plan Departure Patient Disposition: Admitted as Observation Clinical Impression: Stricture, intestine Admit Date/Time: 12/14/23 17:45 Admit Provider: Angelito Spears
[2023-12-14 14:01] LABS: Add Manual Diff / Slide Review NO; Basophils Absolute Auto 0 /uL (0-100); Basophils Percent Auto 0.4 % (0-2); Eosinophils Absolute Auto 0 /uL (0-450); Eosinophils Percent Auto 0.2 % (2-4); Hematocrit 36.1 % (36-46); Hemoglobin 12.2 g/dL (12.0-16.0); Lymphocytes Absolute Auto 1500 /uL (1100-4500); Lymphocytes Percent Auto 27.5 % (25-40); Mean Corpuscular HGB Conc 33.8 % (30-36); Mean Corpuscular Hemoglobin 33.4 PG (26-34); Mean Corpuscular Volume 98.9 fL (80-100); Monocytes Absolute Auto 400 /uL (0-900); Monocytes Percent Auto 8.2 % (3-14); Neutrophils Absolute Auto 3400 /uL (1500-7000); Neutrophils Percent Auto 63.7 % (50-75); Platelet Count 230 X10^3/uL (150-400); Red Blood Cell Count 3.65 X10^6/uL (4.0-5.2); White Blood Cell Count 5.3 X10^3/uL (4.5-11.0)
[2023-12-14] MEDS: SODIUM CHLORIDE 0.9% 1,000 ML 1000 ML IV (14:07)
[2023-12-14] MEDS: KETOROLAC 30 MG/ML VIAL IV (14:08)
[2023-12-14 14:15] LABS: Alanine Aminotransferase 13 IU/L (<35); Albumin 3.8 g/dL (3.5-5.0); Albumin Globulin Ratio 1.3 (1.0-2.8); Alkaline Phosphatase 78 U/L (38-126); Aspartate Aminotransferase 24 IU/L (14-36); Bilirubin Total 0.5 mg/dL (0.2-1.3); Blood Urea Nitrogen 28 mg/dL (7-17); Calcium 8.7 mg/dL (8.4-10.2); Carbon Dioxide 23 mmol/L (22-32); Chloride 107 mmol/L (98-107); Estimated Glomerular Filt Rate > 60 mL/min (>60); Glucose 98 mg/dL (80-110); HEMOLYSIS < 15 (0-50); Lipase 131 U/L (23-300); Potassium 4.4 mmol/L (3.4-5.1); Sodium 134 mmol/L (137-145); Total Protein 6.8 g/dL (6.3-8.2)
[2023-12-14] MEDS: diphenhydrAMINE 50 MG/ML VIAL 25 MG IV (14:19)
--- NOTE | 2023-12-14 15:07 | PC.NURSE ---
Pt on commode after enema and lactulose. Pt produced large hard and formed and painful BM. Pt states that she feels like there is still more and it feels hard to push. Pt given ketorolac for pain.
[2023-12-14] MEDS: MORPHINE 4 MG/ML INJ IV ×2 (16:57→19:59)
[2023-12-14] MEDS: ONDANSETRON 4 MG/2 ML INJ IV (19:58)
[2023-12-14] MEDS: PANTOPRAZOLE 40 MG VIAL IV (22:58)
--- NOTE | 2023-12-14 23:02 | PC.NURSE ---
Addendum entered by Jo Mitchell CNA 12/15/23 01:42: RAILWAYS ASSISTANT note: Patient accepted at [facility]. Patient got bed assignment at 0135. Transport arranged for 0200. Original Note: RAILWAYS ASSISTANT note: Attempting to transfer patient. Called the following hospitals with the following responses: /[facility]: 2046 spoke with To. Pushed images and face sheet. They suggested to call [facility]. [facility]: 2213 spoke with flor james, they have no beds. [facility]: 2216 Spoke with Emery, they have no beds. [facility]: 2218 Spoke with Mona, pushed images and facesheet. [facility]: 2236 spoke with Katina, she took information, and she said she will put patient on her list
[2023-12-15 00:05] VITALS: PULSE 77
[2023-12-15 00:07] VITALS: BP 143/66; PULSE 71; O2SAT 97
--- NOTE | 2023-12-15 00:24 | PC.NURSE ---
used FWW to ambluated independently to bathroom
[2023-12-15 00:30] VITALS: PULSE 66; O2SAT 96
[2023-12-15 00:31] VITALS: BP 102/51; PULSE 67; O2SAT 95
[2023-12-15 01:00] VITALS: PULSE 67; O2SAT 97
[2023-12-15] MEDS: MORPHINE 4 MG/ML INJ IV (02:18)
== END 2023-12-15 02:45 | disposition short-term general hospital (02) ==
LOC: ED 17:44 → AC 19:36 → ED 12-15 00:25
PROVIDERS: Emergency Provider Emergency Medicine; Family Provider Internal Medicine; PCP Internal Medicine; Referring Provider Emergency Medicine
DX: K56.699 Other intestinal obstruction unspecified as to partial versus complete obstruction (principal); Z79.899 Other long term (current) drug therapy
CPT/HCPCS: 36415; 74177; 80053; 83690; 85025; 96361; 96374; 96375; 96376; 99284; C9113; J1200; J1885; J2270; J2405; Q9967

== ENCOUNTER 2024-02-04 19:44 | Inpatient (IN) | payer MEDICARE, OTHER, SELFPAY ==
[2021-06-18 20:52] VITALS: BMI 22.3
[2024-02-04] VITALS (12 sets, daily range): BP systolic 74–126; BP diastolic 39–61; PULSE 84–102; RESP 16–18; TEMP 37.1–39.1; O2SAT 94–99; BMI 23.8
--- NOTE | 2024-02-04 20:00 | PC.NURSE ---
pt c/o generalized malaise with n/v/d with fever resp even and unlabored, pt resting quietly on stretcher with nadn
[2024-02-04 20:27] LABS: Add Manual Diff / Slide Review NO; Basophils Absolute Auto 0 /uL (0-100); Basophils Percent Auto 0.2 % (0-2); Eosinophils Absolute Auto 0 /uL (0-450); Eosinophils Percent Auto 0.1 % (2-4); Hematocrit 37.1 % (36-46); Hemoglobin 12.5 g/dL (12.0-16.0); Lymphocytes Absolute Auto 400 /uL (1100-4500); Lymphocytes Percent Auto 6.1 % (25-40); Mean Corpuscular HGB Conc 33.8 % (30-36); Mean Corpuscular Hemoglobin 34.1 PG (26-34); Mean Corpuscular Volume 100.9 fL (80-100); Monocytes Absolute Auto 200 /uL (0-900); Monocytes Percent Auto 3.1 % (3-14); Neutrophils Absolute Auto 6500 /uL (1500-7000); Neutrophils Percent Auto 90.5 % (50-75); Platelet Count 211 X10^3/uL (150-400); Red Blood Cell Count 3.68 X10^6/uL (4.0-5.2); Red Cell Distribution Width 14.6 % (11.6-14.8); White Blood Cell Count 7.2 X10^3/uL (4.5-11.0)
[2024-02-04] MEDS: SODIUM CHLORIDE 0.9% 1,000 ML 1000 ML IV ×2 (20:33→23:38)
[2024-02-04] MEDS: ONDANSETRON 4 MG/2 ML INJ IV (20:33)
[2024-02-04] MEDS: KETOROLAC 30 MG/ML VIAL 15 MG IV (20:35)
[2024-02-04 20:36] LABS: Alanine Aminotransferase 13 IU/L (<35); Albumin Globulin Ratio 1.3 (1.0-2.8); Alkaline Phosphatase 68 U/L (38-126); Aspartate Aminotransferase 19 IU/L (14-36); BUN Creatinine Ratio 40.4 (6-22); Bilirubin Total 0.7 mg/dL (0.2-1.3); Blood Urea Nitrogen 38 mg/dL (7-17); Calcium 9.2 mg/dL (8.4-10.2); Carbon Dioxide 17 mmol/L (22-32); Chloride 108 mmol/L (98-107); Estimated Glomerular Filt Rate > 60 mL/min (>60); Glucose 117 mg/dL (80-110); HEMOLYSIS < 15 (0-50); Potassium 4.5 mmol/L (3.4-5.1); Sodium 134 mmol/L (137-145)
[2024-02-04 20:40] LABS: Creatine Kinase 33 U/L (30-135); Lactate (Lactic Acid) 1.1 mmol/L (0.7-2.1)
[2024-02-04 20:54] LABS: Troponin I < 0.012 ng/mL (0.01-0.034)
[2024-02-04 20:58] LABS: Procalcitonin 0.089 ng/mL (<0.5)
--- NOTE | 2024-02-04 20:58 | EKG_ITS ---
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
[2024-02-04 21:43] LABS: Bacteria Urine Many (>30); RBC Urine None Seen (0-5/HPF); Squamous Epithelial Cell Urine 0-1 /HPF (0-5/HPF); Urine Volume 10mL (spun); WBC Urine 30-100/HPF (0-5/HPF)
[2024-02-04 21:44] LABS: Culture Indicated Urine Specimen Cultured
--- NOTE | 2024-02-04 22:26 | ED_ITS ---
HPI - Abdominal Pain General Chief Complaint: Fever Stated Complaint: severe abd pain Time Seen by Provider: 02/04/24 22:25 Source: patient Mode of arrival: Ambulatory History of Present Illness HPI narrative: Patient is a 73-year-old female history of Crohn's disease on steroid not currently on immunologic history of a J-pouch presenting today with fever and abdominal pain. It is more in the right side than left. She says it started yesterday. She has had a little bit of blood in her stool but mostly stool. She currently has a temperature of a 102?. She denies any chest pain or palpitations no shortness breath. She feels nauseous but no significant vomiting. No painful frequent urination. He is also complaining of significant right-sided back pain, nonradiating Related Data Home Medications Medication Instructions Recorded Confirmed albuterol sulfate 90 mcg/actuation 2 puff INH Q4HP PRN Bronchospasm 04/17/16 06/18/21 aerosol inhaler (Ventolin HFA) ##0 divalproex 500 mg tablet,extended 1,000 mg PO HS ##0 04/17/16 06/18/21 release 24 hr lamotrigine 200 mg tablet 400 mg PO QDAY ##0 04/17/16 06/18/21 (Lamictal) levothyroxine 75 mcg tablet 0.075 mg PO QDAY ##0 04/17/16 06/18/21 (Synthroid) losartan 25 mg tablet 25 mg PO QDAY ##0 04/17/16 06/18/21 acetaminophen 500 mg tablet 1,000 mg PO Q6HP PRN Abdominal 05/28/21 06/18/21 (Tylenol Extra Strength) Discomfort Previous Rx's Medication Instructions Recorded famotidine 20 mg tablet (Pepcid AC) 20 mg PO DAILY #60 tabs 06/06/21 gabapentin 300 mg capsule 300 mg PO TID #120 caps 06/06/21 melatonin 3 mg tablet 6 mg (2 x 3 mg) PO BEDTIME #90 tabs 06/06/21 methocarbamol 500 mg tablet 500 mg PO TID #90 tabs 06/06/21 metoclopramide HCl 5 mg tablet 5 mg PO AC #90 tabs 06/06/21 oxycodone 5 mg tablet 5 mg PO Q6H PRN pain #20 tabs 06/06/21 polyethylene glycol 3350 17 gram 17 g PO BID #30 ea 06/06/21 oral powder packet sucralfate 1 gram tablet 1 gm PO ACHS #120 tabs 06/06/21 tramadol 50 mg tablet 50 mg PO TID #90 tabs 06/06/21 trazodone 50 mg tablet 50 mg PO BEDTIME #90 tabs 06/06/21 oxycodone 5 mg tablet 5 mg PO Q4HR PRN Pain, Moderate 06/20/21 (4-6) #20 tabs polyethylene glycol 3350 17 gram 17 g PO DAILY #100 ea 06/20/21 oral powder packet (Miralax) scopolamine base 1 mg over 3 days 1 patch topical Q72H #6 ea 06/20/21 transdermal patch (Transderm-Scop) sennosides 8.6 mg capsule (senna) 8.6 mg PO BID #120 caps 06/20/21 simethicone 80 mg chewable tablet 80 mg PO QID PRN Flatulence #30 06/20/21 (Mi-Acid Gas Relief (simethicone)) tabs aspirin 81 mg tablet,delayed 81 mg PO DAILY #60 tabs 06/22/21 release atorvastatin 20 mg tablet (Lipitor) 20 mg PO BEDTIME #60 tabs 06/22/21 famotidine 20 mg tablet (Pepcid AC) 20 mg PO DAILY #120 tabs 06/22/21 memantine 5 mg tablet (Namenda) 5 mg PO DAILY #90 tabs 06/22/21 olanzapine 2.5 mg tablet 2.5 mg PO BEDTIME #60 tabs 06/22/21 risperidone 0.25 mg tablet 0.25 mg PO BID #90 tabs 06/22/21 sucralfate 1 gram tablet 1 gm PO ACHS #120 tabs 06/22/21 ciprofloxacin HCl 500 mg tablet 500 mg PO BID #14 tabs 06/27/21 promethazine 25 mg tablet 25 mg PO TID PRN nausea and 06/27/21 vomiting #20 tabs Allergies Allergy/AdvReac Type Severity Reaction Status Date / Time butorphanol Allergy Unknown Verified 06/18/21 18:33 Influenza Virus Vaccines Allergy Unknown ITCHING, Verified 06/18/21 18:33 BAD REACTION meperidine Allergy Unknown Verified 06/18/21 18:33 pneumococcal vaccine Allergy Unknown Verified 06/18/21 18:33 quetiapine Allergy Unknown Verified 06/18/21 18:33 shellfish derived Allergy Unknown Verified 06/18/21 18:33 neuroleptics AdvReac Unknown PT STATES Uncoded 09/27/17 12:31 HAD REALLY BAD REACTION, UNABLE TO STATE WHAT Patient History Medical History Generalized weakness Small bowel obstruction Surgical History H/O thyroidectomy Family History Mother Diabetes mellitus Heart disease Father Diabetes mellitus Heart disease Brother Myocardial infarction CVA (cerebral vascular accident) Other Hypertension Social History household members: spouse Smoking Status: Never smoker alcohol intake: former Smoking Status: Never smoker alcohol intake frequency: 0-2 drinks per day Substance Use Type: does not use Exam Initial Vital Signs Initial Vital Signs: Vital Signs Temperature 102.3 F H 02/04/24 19:51 Pulse Rate 102 H 02/04/24 19:51 Respiratory Rate 16 02/04/24 19:51 Blood Pressure 123/56 L 02/04/24 19:51 Pulse Oximetry 99 02/04/24 19:51 Oxygen Delivery Method Room Air 02/04/24 19:51 GENERAL: Alert 73-year-old female and in no acute distress. HEENT: Head atraumatic,EOMI, pupils reactive, face symmetric, moist mucous membranes CARDIOVASCULAR: Regular rate possible systolic murmur RESPIRATORY: Breath sounds equal bilaterally, no wheezes rales or rhonchi. ABDOMEN: Soft, mild right-sided pain no guarding no rebound no distention : Mild right CVA tenderness EXTREMITIES: Normal range of motion, no clubbing or edema. Neurovascularly intact NEUROLOGICAL: Alert and oriented x4.Normal gait and speech. SKIN: Warm, dry, no laceration, no petechiae, no rashes or lesions. Procedures Central Line Placement Right IJ: Patient Placed on Monitor/Pulse Ox: Yes MD Prep: mask, gown and gloves Central Line Prep: Chlorhexidine scrub and sterile drapes applied Local Anesthetic: lidocaine 1% Amount of anesthesia used (mL): 5 Ultrasound Used for Placement: Yes Central Line Lumen Inserted: triple Post Procedure: good blood return, all ports aspirated, flushed, capped, sterile dressing applied and line stabilization device Post Procedure X-Ray: tip of catheter in good position and no pneumothorax seen Course Orders Ordered: ED Orders 02/04/24 20:17 Complete Blood Count AUTO DIFF Stat Comprehensive Metabolic Panel Stat Lactate (Lactic Acid) Stat Procalcitonin Stat Troponin & CK Cardiac Panel Stat 02/04/24 20:27 EKG-12 Lead Stat 02/04/24 21:20 Urine Culture Stat Urine Microscopic Stat 02/04/24 21:40 Blood Culture Stat Respiratory Panel (Film Array) Stat 02/04/24 22:32 CT abdomen pelvis w con Stat 02/05/24 00:35 Lactate (Lactic Acid) Stat 02/05/24 02:08 GI Panel (Film Array) Stat NOREPINEPHRINE BITARTRATE/D5W (Levophed) 4 mg in 250 mls @ 20.752 mls/hr IV TITRATE CYNDI; Protocol Last Titration: 02/05/24 03:30 Dose: 0 mcg/kg/min, 0 mls/hr Documented By: Titration: 02/05/24 02:45 Dose: 0.05 mcg/kg/min, 10.376 mls/hr Documented By: Titration: 02/05/24 01:04 Dose: 0.1 mcg/kg/min, 20.752 mls/hr Documented By: Titration: 02/05/24 00:58 Dose: 0 mcg/kg/min, 0 mls/hr Documented By: Admin: 02/05/24 00:13 Dose: 0.1 mcg/kg/min, 20.752 mls/hr Documented By: CLARKE Sodium Chloride (Normal Saline 0.9%) 1,000 mls @ 125 mls/hr IV CONT CYNDI Last Infusion: 02/05/24 03:30 Dose: 0 mls/hr Documented By: Admin: 02/05/24 03:23 Dose: 125 mls/hr Documented By: AB Discontinued Medications Hydromorphone HCl (Hydromorphone 0.5 Mg Inj) 0.5 mg IV NOW ONE Stop: 02/04/24 22:33 Last Admin: 02/04/24 22:46 Dose: 0.5 mg Documented By: CLARKE Hydromorphone HCl (Hydromorphone 0.5 Mg Inj) 0.5 mg IV NOW ONE Stop: 02/05/24 02:59 Last Admin: 02/05/24 03:21 Dose: 0.5 mg Documented By: Sodium Chloride (Normal Saline 0.9%) 1,000 mls @ 1,000 mls/hr IV BOLUS ONE Stop: 02/04/24 20:59 Last Infusion: 02/04/24 23:38 Dose: Infused Documented By: Admin: 02/04/24 20:33 Dose: 1,000 mls/hr Documented By: HAL Ceftriaxone Sodium 1,000 mg/ (Sodium Chloride) 100 mls @ 200 mls/hr IV NOW ONE Stop: 02/04/24 22:39 Last Infusion: 02/04/24 23:29 Dose: Infused Documented By: Admin: 02/04/24 22:46 Dose: 200 mls/hr Documented By: CLARKE Sodium Chloride (Normal Saline 0.9%) 1,000 mls @ 1,000 mls/hr IV BOLUS ONE Stop: 02/05/24 00:36 Last Infusion: 02/05/24 00:34 Dose: Infused Documented By: Admin: 02/04/24 23:38 Dose: 1,000 mls/hr Documented By: CLARKE Sodium Chloride (Normal Saline 0.9%) 1,660.14 mls @ 553.38 mls/hr 30 ml/kg infuse over 3 hr (1660.14 ml) IV NOW ONE Stop: 02/05/24 02:41 Last Admin: 02/05/24 00:34 Dose: Not Given Documented By: CLARKE Acetaminophen (Ofirmev) 1,000 mg in 100 mls @ 400 mls/hr IV NOW ONE Stop: 02/05/24 02:54 Last Infusion: 02/05/24 03:40 Dose: Infused Documented By: Admin: 02/05/24 03:21 Dose: 400 mls/hr Documented By: Ketorolac Tromethamine (Ketorolac 30 Mg/Ml Vial) 15 mg IV NOW ONE Stop: 02/04/24 20:28 Last Admin: 02/04/24 20:35 Dose: 15 mg Documented By: HAL Ondansetron HCl (Ondansetron 4 Mg/2 Ml Inj) 4 mg IV NOW ONE Stop: 02/04/24 20:01 Last Admin: 02/04/24 20:33 Dose: 4 mg Documented By: KW Vital Signs Vital signs: Vital Signs - 8 hr 02/04/24 20:33 02/04/24 20:33 02/04/24 21:00 Temperature Pulse Rate 102 H 99 H Respiratory Rate Blood Pressure 104/61 Pulse Oximetry 98 95 02/04/24 21:26 02/04/24 21:26 02/04/24 21:30 Temperature Pulse Rate 101 H Respiratory Rate Blood Pressure 123/58 L 126/60 Pulse Oximetry 95 02/04/24 21:30 02/04/24 22:00 02/04/24 22:00 Temperature Pulse Rate 95 H 94 H Respiratory Rate 18 Blood Pressure 110/52 L Pulse Oximetry 94 94 02/04/24 22:30 02/04/24 22:30 02/04/24 22:55 Temperature Pulse Rate 96 H 86 Respiratory Rate 18 Blood Pressure 95/53 L Pulse Oximetry 96 95 02/04/24 22:55 02/04/24 23:00 02/04/24 23:02 Temperature 98.7 F Pulse Rate 84 Respiratory Rate Blood Pressure 90/55 L Pulse Oximetry 94 02/04/24 23:30 02/04/24 23:32 02/04/24 23:32 Temperature Pulse Rate 85 84 Respiratory Rate Blood Pressure 74/39 L Pulse Oximetry 94 96 02/05/24 00:00 02/05/24 00:00 02/05/24 00:32 Temperature Pulse Rate 80 75 Respiratory Rate Blood Pressure 73/38 L Pulse Oximetry 94 02/05/24 00:34 02/05/24 00:34 02/05/24 00:55 Temperature Pulse Rate 79 Respiratory Rate 21 Blood Pressure 91/62 151/91 H Pulse Oximetry 96 02/05/24 00:55 02/05/24 00:56 02/05/24 00:56 Temperature Pulse Rate 79 78 Respiratory Rate 26 H 15 Blood Pressure 150/70 H Pulse Oximetry 98 98 02/05/24 01:00 02/05/24 01:01 02/05/24 01:01 Temperature Pulse Rate 77 75 Respiratory Rate 21 19 Blood Pressure 77/40 L Pulse Oximetry 96 02/05/24 01:11 02/05/24 01:11 02/05/24 01:15 Temperature Pulse Rate 77 78 Respiratory Rate 20 16 Blood Pressure 73/34 L Pulse Oximetry 94 97 02/05/24 01:15 02/05/24 01:30 02/05/24 01:31 Temperature Pulse Rate 72 Respiratory Rate 20 Blood Pressure 89/42 L 133/58 L Pulse Oximetry 98 02/05/24 01:31 Temperature Pulse Rate 70 Respiratory Rate 25 H Blood Pressure Pulse Oximetry 98 MDM - Abdominal Pain Lab Data 02/04/24 20:17 02/04/24 20:17 Labs: Lab Results 02/04/24 02/04/24 02/04/24 Range/Units 20:17 21:20 21:40 WBC 7.2 (4.5-11.0) X10^3/uL RBC 3.68 L (4.0-5.2) X10^6/uL Hgb 12.5 (12.0-16.0) g/dL Hct 37.1 (36-46) % MCV 100.9 H (80-100) fL MCH 34.1 H (26-34) PG MCHC 33.8 (30-36) % RDW 14.6 (11.6-14.8) % Plt Count 211 (150-400) X10^3/uL Neut % (Auto) 90.5 H (50-75) % Lymph % (Auto) 6.1 L (25-40) % [place] % (Auto) 3.1 (3-14) % Eos % (Auto) 0.1 L (2-4) % Baso % (Auto) 0.2 (0-2) % Neut # (Auto) 6500 (7397-4593) /uL Lymph # (Auto) 400 L (3610-2339) /uL [place] # (Auto) 200 (0-900) /uL Eos # (Auto) 0 (0-450) /uL Baso # (Auto) 0 (0-100) /uL Sodium 134 L (137-145) mmol/L Potassium 4.5 (3.4-5.1) mmol/L Chloride 108 H (98-107) mmol/L Carbon Dioxide 17 L (22-32) mmol/L BUN 38 H (7-17) mg/dL Creatinine 0.94 (0.52-1.04) mg/dL Estimated GFR > 60 (>60) mL/min BUN/Creatinine Ratio 40.4 H (6-22) Glucose 117 H (80-110) mg/dL Lactate 1.1 (0.7-2.1) mmol/L Calcium 9.2 (8.4-10.2) mg/dL Total Bilirubin 0.7 (0.2-1.3) mg/dL AST 19 (14-36) IU/L ALT 13 (<35) IU/L Alkaline Phosphatase 68 (38-126) U/L Total Creatine Kinase 33 (30-135) U/L Troponin I < 0.012 (0.01-0.034) ng/mL Total Protein 7.0 (6.3-8.2) g/dL Albumin 4.0 (3.5-5.0) g/dL Globulin 3.0 (1.7-4.1) g/dL Albumin/Globulin Ratio 1.3 (1.0-2.8) Procalcitonin 0.089 (<0.5) ng/mL Urine RBC None seen (0-5/HPF) Urine WBC 30-100/hpf H (0-5/HPF) Ur Squamous Epith Cells 0-1 /hpf (0-5/HPF) Urine Bacteria Many (>30) H (None) Ur Culture Indicated? Specimen cultured Vol Urine Centrifuged 10ml (spun) Chlamy pneumoniae PCR Not detected (Not Detect) Adenovirus (PCR) Not detected (Not Detect) B.parapertussis DNA PCR Not detected (Not Detecte) Coronavirus OC43 (PCR) Not detected (Not Detect) Coronavirus HKU1 (PCR) Not detected (Not Detect) Coronavirus 229E (PCR) Not detected (Not Detect) SARS-CoV-2 (PCR) Not detected (Not Detecte) Coronavirus NL63 (PCR) Not detected (Not Detect) Human Metapneumovir PCR Not detected (Not Detect) Influenza Type A (PCR) Not detected (Not Detect) Influenza Type B (PCR) Not detected (Not Detect) M. pneumoniae (PCR) Not detected (Not Detect) Parainfluenza 1 (PCR) Not detected (Not Detect) Parainfluenza 2 (PCR) Not detected (Not Detect) Parainfluenza 3 (PCR) Not detected (Not Detect) Parainfluenza 4 (PCR) Not detected (Not Detect) RSV (PCR) Not detected (Not Detect) Entero/Rhino (PCR) Not detected (Not Detect) 08/19/24 Range/Units 00:35 WBC (4.5-11.0) X10^3/uL RBC (4.0-5.2) X10^6/uL Hgb (12.0-16.0) g/dL Hct (36-46) % MCV (80-100) fL MCH (26-34) PG MCHC (30-36) % RDW (11.6-14.8) % Plt Count (150-400) X10^3/uL Neut % (Auto) (50-75) % Lymph % (Auto) (25-40) % [place] % (Auto) (3-14) % Eos % (Auto) (2-4) % Baso % (Auto) (0-2) % Neut # (Auto) (4090-9903) /uL Lymph # (Auto) (2833-7972) /uL [place] # (Auto) (0-900) /uL Eos # (Auto) (0-450) /uL Baso # (Auto) (0-100) /uL Sodium (137-145) mmol/L Potassium (3.4-5.1) mmol/L Chloride (98-107) mmol/L Carbon Dioxide (22-32) mmol/L BUN (7-17) mg/dL Creatinine (0.52-1.04) mg/dL Estimated GFR (>60) mL/min BUN/Creatinine Ratio (6-22) Glucose (80-110) mg/dL Lactate < 0.5 L (0.7-2.1) mmol/L Calcium (8.4-10.2) mg/dL Total Bilirubin (0.2-1.3) mg/dL AST (14-36) IU/L ALT (<35) IU/L Alkaline Phosphatase (38-126) U/L Total Creatine Kinase (30-135) U/L Troponin I (0.01-0.034) ng/mL Total Protein (6.3-8.2) g/dL Albumin (3.5-5.0) g/dL Globulin (1.7-4.1) g/dL Albumin/Globulin Ratio (1.0-2.8) Procalcitonin (<0.5) ng/mL Urine RBC (0-5/HPF) Urine WBC (0-5/HPF) Ur Squamous Epith Cells (0-5/HPF) Urine Bacteria (None) Ur Culture Indicated? Vol Urine Centrifuged Chlamy pneumoniae PCR (Not Detect) Adenovirus (PCR) (Not Detect) B.parapertussis DNA PCR (Not Detecte) Coronavirus OC43 (PCR) (Not Detect) Coronavirus HKU1 (PCR) (Not Detect) Coronavirus 229E (PCR) (Not Detect) SARS-CoV-2 (PCR) (Not Detecte) Coronavirus NL63 (PCR) (Not Detect) Human Metapneumovir PCR (Not Detect) Influenza Type A (PCR) (Not Detect) Influenza Type B (PCR) (Not Detect) M. pneumoniae (PCR) (Not Detect) Parainfluenza 1 (PCR) (Not Detect) Parainfluenza 2 (PCR) (Not Detect) Parainfluenza 3 (PCR) (Not Detect) Parainfluenza 4 (PCR) (Not Detect) RSV (PCR) (Not Detect) Entero/Rhino (PCR) (Not Detect) Point of care testing: Urine Dip Bedside Urine Glucose Negative Bedside Urine Bilirubin - Negative Bedside Urine Ketone - Negative Urine Specific [place] 1.015 Bedside Urine Occult Blood + Bedside Urine pH 6 Bedside Urine Protein +/- 15 Bedside Urine Urobilinogen - Negative Bedside Urine Nitrite + Positive Bedside Urine Leukocytes +++ [address] scan - abdomen/pelvis: Radiologist's Impression: PROCEDURE: CT ABDOMEN PELVIS W CON INDICATIONS: right sided ab pain hx colectomy TECHNIQUE: After the administration of intravenous contrast, axial sections acquired from the lung bases to the pubic symphysis. Coronal and sagittal reformats were performed. For radiation dose reduction, the following was used: automated exposure control, adjustment of mA and/or kV according to patient size. COMPARISON: [facility], CT, CT ABDOMEN PELVIS W CON, 12/14/2023, 14:37. FINDINGS: Image quality: Diagnostic. Lower Chest: Mild bibasilar atelectasis. ABDOMEN: Liver: No solid mass. Gallbladder: Cholelithiasis without evidence of gallbladder inflammation. Biliary ducts: No biliary dilation. Pancreas: No ductal dilation. Spleen: Size is within normal limits. Adrenal Glands: No adrenal nodules. Kidneys and Ureters: No hydronephrosis. No solid mass. No complex renal cystic lesion which requires follow up. Bilateral renal cysts and subcentimeter hypodensities which are too small to accurately characterize, similar appearance to prior. Stomach and Bowel: Similar appearance of the bowel to prior. Postsurgical changes from partial colectomy. Anastomotic sutures are noted within the pelvis. Narrowed appearance of the anastomotic segment in the pelvis. Proximally, the colon is mildly dilated and filled with air and stool. No evidence of obstruction. Peritoneum: No abnormal intraperitoneal fluid. No free air. Ventral Wall: No significant ventral hernia. Abdominal Nodes: No retroperitoneal or mesenteric adenopathy by size criteria. Vessels: Aorta and inferior vena cava are normal in size. Atherosclerotic vascular calcifications. PELVIS: Pelvic Organs: Unremarkable. Bladder: No bladder wall thickening, accounting for underdistention. Pelvic Nodes: No enlarged lymph nodes. Miscellaneous: No inguinal hernias are seen. Bones: No aggressive osseous abnormality. Left hip ORIF. Decreased osseous mineralization. Degenerative changes of the spine. Stable severe compression deformity of L2 centrally. IMPRESSION: 1. Stable appearance of the bowel with chronic postsurgical changes, as described above. No bowel obstruction or other acute findings. 2. Cholelithiasis without evidence of gallbladder inflammation. 3. Additional chronic findings are stable compared to prior exam, as described above. Dictated by: Edi Campbell M.D. on 02/04/2024 at 22:55 ECG Data Attestation: I personally reviewed and interpreted this ECG as follows: Prior ECG tracings: available for review Interpretation: Normal sinus rhythm rate 92 MS interval 140 QRS [address] changes or T- wave inversions [facility] Narrative Medical decision making narrative: [facility] CC: Abdominal pain fever Complicating co-morbidities: Bipolar Crohn's disease Medical records reviewed: Previous admission in 2020 Differential considered: Sepsis diverticulitis obstruction endocarditis pyelonephritis UTI Exam documented above, pertinent findings include: Mild right flank pain possible new systolic murmur Lab Test results independently reviewed as above. Pertinent findings: WBC 7.2 hemoglobin 12.5 hematocrit 37.1 platelets 211, sodium 134 potassium 4.5 chloride 108 carbon dioxide 17 BUN 38 creatinine 0.9 glucose 117, lactate 1.1 bilirubin 0.7 AST 19 ALT 13, troponin negative Independently reviewed EKG as above sinus rhythm rate 92 MS interval 140 QRS [address] changes Imaging studies independently reviewed: Consultations: Dr Woody accepts patient Treatments: IV fluids Rocephin Dilaudid Re-evaluations: Patient developed hypotension. Initially thought it maybe due to 0.5 mg of Dilaudid however she really did not respond to IV fluids. Sepsis fluids were given. It still continued to drop which point Levophed was started. Blood pressure quickly responded to leave a Levophed we tried turning off Levophed however it still had a map less than 65. The which point a central line was placed. Discussion: Patient is 73-year-old female presents today with right-sided flank pain abdominal pain and fever 102. Concern for sepsis. Although she has no leukocytosis or elevated lactic acid. During her ED visit she became hypotensive initially thought to be drug related however it is presumed more septic shock she required vasopressor support. Central line was placed. She was positive nitrates in her urine right flank pain presumed to be pyelonephritis. CT scan did not show any nephrolithiasis or hydronephrosis also really no other issue or complication. Critical Care Time Critical Care Time Critical Care Time: Yes Total Critical Care Time: 45 Attestation: The high probability of a clinically significant, sudden or life threatening deterioration of the [cardiovascular] system(s) required my full and direct attention, intervention and personal management. The aggregate critical care time was [45] minutes. This time is in addition to time spent performing reported procedures but includes the following: [x] Data Review and interpretation [x] Patient assessment and monitoring of vital signs [x] Documentation [x] Medication orders and management Discharge Plan Departure Patient Disposition: Admitted As Inpatient Clinical Impression: Acute pyelonephritis, Septic shock Admit Date/Time: 02/05/24 01:34 Admit Provider: Jose Woody
--- NOTE | 2024-02-04 22:32 | DI.CT.S_ITS ---
PROCEDURE: CT ABDOMEN PELVIS W CON INDICATIONS: right sided ab pain hx colectomy TECHNIQUE: After the administration of intravenous contrast, axial sections acquired from the lung bases to the pubic symphysis. Coronal and sagittal reformats were performed. For radiation dose reduction, the following was used: automated exposure control, adjustment of mA and/or kV according to patient size. COMPARISON: [facility], CT, CT ABDOMEN PELVIS W CON, 12/14/2023, 14:37. FINDINGS: Image quality: Diagnostic. Lower Chest: Mild bibasilar atelectasis. ABDOMEN: Liver: No solid mass. Gallbladder: Cholelithiasis without evidence of gallbladder inflammation. Biliary ducts: No biliary dilation. Pancreas: No ductal dilation. Spleen: Size is within normal limits. Adrenal Glands: No adrenal nodules. Kidneys and Ureters: No hydronephrosis. No solid mass. No complex renal cystic lesion which requires follow up. Bilateral renal cysts and subcentimeter hypodensities which are too small to accurately characterize, similar appearance to prior. Stomach and Bowel: Similar appearance of the bowel to prior. Postsurgical changes from partial colectomy. Anastomotic sutures are noted within the pelvis. Narrowed appearance of the anastomotic segment in the pelvis. Proximally, the colon is mildly dilated and filled with air and stool. No evidence of obstruction. Peritoneum: No abnormal intraperitoneal fluid. No free air. Ventral Wall: No significant ventral hernia. Abdominal Nodes: No retroperitoneal or mesenteric adenopathy by size criteria. Vessels: Aorta and inferior vena cava are normal in size. Atherosclerotic vascular calcifications. PELVIS: Pelvic Organs: Unremarkable. Bladder: No bladder wall thickening, accounting for underdistention. Pelvic Nodes: No enlarged lymph nodes. Miscellaneous: No inguinal hernias are seen. Bones: No aggressive osseous abnormality. Left hip ORIF. Decreased osseous mineralization. Degenerative changes of the spine. Stable severe compression deformity of L2 centrally. IMPRESSION: 1. Stable appearance of the bowel with chronic postsurgical changes, as described above. No bowel obstruction or other acute findings. 2. Cholelithiasis without evidence of gallbladder inflammation. 3. Additional chronic findings are stable compared to prior exam, as described above. Dictated by: Edi Campbell M.D. on 02/04/2024 at 22:55 Approved by: Edi Campbell M.D. on 02/04/2024 at 23:00
[2024-02-04 22:43] LABS: Adenovirus Not Detected (Not Detect); B. parapertussis Not Detected (Not Detecte); Bordetella pertussis Not Detected (Not Detect); Chlamydophila pneumoniae Not Detected (Not Detect); Coronavirus 229E Not Detected (Not Detect); Coronavirus HKU1 Not Detected (Not Detect); Coronavirus NL 63 Not Detected (Not Detect); Coronavirus OC43 Not Detected (Not Detect); Human Metapneumovirus Not Detected (Not Detect); Human Rhinovirus/Enterovirus Not Detected (Not Detect); Influenza A Not Detected (Not Detect); Influenza B Not Detected (Not Detect); Mycoplasma pneumoniae Not Detected (Not Detect); Parainfluenza Virus 1 Not Detected (Not Detect); Parainfluenza Virus 2 Not Detected (Not Detect); Parainfluenza Virus 3 Not Detected (Not Detect); Parainfluenza Virus 4 Not Detected (Not Detect); Respiratory Syncytial Virus Not Detected (Not Detect); SARS- CoV-2 Not Detected (Not Detecte)
[2024-02-04] MEDS: HYDROMORPHONE 0.5 MG INJ IV (22:46)
[2024-02-04] MEDS: cefTRIAXone 1,000 MG in SODIUM CHLORIDE 0.9% 100 ML 200 MG IV (22:46)
[2024-02-05] VITALS (114 sets, daily range): BP systolic 73–195; BP diastolic 34–145; PULSE 68–125; RESP 12–54; TEMP 37.2–39.4; O2SAT 77–100; BMI 19.1
[2024-02-05] MEDS: NOREPINEPHRINE BITARTRATE/D5W 4 MG/250 ML PLAST..BAG 20.752 MG IV (00:13)
[2024-02-05 00:51] LABS: Lactate (Lactic Acid) < 0.5 mmol/L (0.7-2.1)
--- NOTE | 2024-02-05 02:56 | DI.RAD.S_ITS ---
PROCEDURE: XR CHEST 1V INDICATIONS: post line insertion TECHNIQUE: One view of the chest was acquired. COMPARISON: [facility], CR, XR CHEST 1V, 09/15/2019, 18:18. FINDINGS: Surgical changes and devices: Right IJ central venous catheter tip projects over the low SVC. Lungs and pleura: Lungs are clear. No pleural effusions or pneumothorax. Mediastinum: Mediastinal contours appear normal. Heart size is normal. Bones and chest wall: No suspicious bony lesions. Overlying soft tissues appear unremarkable. IMPRESSION: Right IJ central venous catheter tip projects over the low SVC. No pneumothorax. Dictated by: Rubio Jean M.D. on 02/05/2024 at 8:54 Approved by: Rubio Jean M.D. on 02/05/2024 at 8:56
[2024-02-05] MEDS: HYDROMORPHONE 0.5 MG INJ IV ×4 (03:21→15:27)
[2024-02-05] MEDS: ACETAMINOPHEN IV 1,000 MG/100 ML VIAL 400 MG IV (03:21)
[2024-02-05] MEDS: SODIUM CHLORIDE 0.9% 1,000 ML 125 ML IV ×3 (03:23→19:47)
--- NOTE | 2024-02-05 03:30 | PC.NURSE ---
norephinephrine and NS continued upon transfer to floor
[2024-02-05 03:35] LABS: Adenovirus F 40/41 Not Detected (Not Detect); Astrovirus Not Detected (Not Detect); Campylobacter Not Detected (Not Detect); Clostridium difficile toxin AB Not Detected (Not Detect); Cryptosporidium Not Detected (Not Detect); Cyclospora cayetanensis Not Detected (Not Detect); Entamoeba histolytica Not Detected (Not Detect); Enteroaggregative E.coli Not Detected (Not Detect); Enteropathogenic E.coli Not Detected (Not Detect); Enterotoxigenic E.coli It/st Not Detected (Not Detect); Giardia lamblia Not Detected (Not Detect); Norovirus GI/GII Not Detected (Not Detect); Plesiomonsa shigelloides Not Detected (Not Detect); Rotavirus A Not Detected (Not Detect); Salmonella Not Detected (Not Detect); Sapovirus Not Detected (Not Detect); Shiga-like toxin-prod E.coli Not Detected (Not Detect); Shigella/Enteroinvasive E.coli Not Detected (Not Detect); Vibrio Not Detected (Not Detect); Vibrio cholerae Not Detected (Not Detect); Yersinia enterocolitica Not Detected (Not Detect)
[2024-02-05] MEDS: HYDROCODONE/ACET 5/325 TABLET 1 TAB PO (05:39)
--- NOTE | 2024-02-05 05:43 | PM.HP.1 ---
History of Present Illness History of Present Illness Date Patient Seen: 02/05/24 Time Patient Seen: 05:15 Chief complaint: severe abd pain Narrative: 73 years old female with a past medical history of Crohn's disease, hypertension, dyslipidemia and multiple other medical issues presented to the emergency room for abdominal pain more so in the flank bilaterally left greater than the right with difficulty urination and urgency. Symptoms started since Monday. Did have fever episodes and noted to have a temp of 102 on arrival. Denies any chest pain or shortness of breath. Has nausea but no vomiting. In the emergency room, initially on arrival systolic was in the 120s. Received IV fluids and subsequently IV Dilaudid. Her blood pressure drops into the 70s to 80s needing IV fluid resuscitation. Labs revealed a white count of 7.2 with a hemoglobin of 12.5. Sodium is 134, BUN of 38 creatinine of 0.94 and a blood sugar of 117. Influenza parainfluenza/COVID and viral screen is negative. CT abdomen and pelvis shows stable appearance of the bowel with chronic postsurgical changes and no bowel obstruction. With IV fluids, blood pressure did not improve and possibility of sepsis was considered. Fluid bolus per sepsis protocol was given in addition to IV Rocephin. Central line was placed and patient was initiated on IV Levophed with a target MAP of 65 or more. Patient was admitted to the ICU for further evaluation [facility] Medical History Generalized weakness Small bowel obstruction Surgical History H/O thyroidectomy Family History Mother Diabetes mellitus Heart disease Father Diabetes mellitus Heart disease Brother Myocardial infarction CVA (cerebral vascular accident) Other Hypertension Social History household members: spouse Smoking Status: Never smoker alcohol intake: former Meds Home Medications and Allergies Home Medications Medication Instructions Recorded Confirmed Type albuterol sulfate 90 mcg/actuation 2 puff INH Q4HP PRN Bronchospasm 04/17/16 02/05/24 History aerosol inhaler (Ventolin HFA) ##0 divalproex 500 mg tablet,extended 1,500 mg PO HS ##0 04/17/16 06/18/21 History release 24 hr lamotrigine 200 mg tablet 400 mg PO QDAY ##0 04/17/16 02/05/24 History (Lamictal) levothyroxine 75 mcg tablet 0.075 mg PO QDAY ##0 04/17/16 02/05/24 History (Synthroid) losartan 25 mg tablet 75 mg PO QDAY ##0 04/17/16 02/05/24 History acetaminophen 500 mg tablet 1,000 mg PO Q6HP PRN Abdominal 05/28/21 02/05/24 History (Tylenol Extra Strength) Discomfort famotidine 20 mg tablet (Pepcid AC) 20 mg PO DAILY #60 tabs 06/06/21 06/18/21 Rx gabapentin 300 mg capsule 300 mg PO TID #120 caps 06/06/21 06/18/21 Rx melatonin 3 mg tablet 6 mg (2 x 3 mg) PO BEDTIME #90 tabs 06/06/21 06/18/21 Rx methocarbamol 500 mg tablet 500 mg PO TID #90 tabs 06/06/21 06/18/21 Rx metoclopramide HCl 5 mg tablet 5 mg PO AC #90 tabs 06/06/21 06/18/21 Rx oxycodone 5 mg tablet 5 mg PO Q6H PRN pain #20 tabs 06/06/21 06/18/21 Rx polyethylene glycol 3350 17 gram 17 g PO BID #30 ea 06/06/21 06/18/21 Rx oral powder packet sucralfate 1 gram tablet 1 gm PO ACHS #120 tabs 06/06/21 06/18/21 Rx tramadol 50 mg tablet 50 mg PO TID #90 tabs 06/06/21 06/18/21 Rx trazodone 50 mg tablet 50 mg PO BEDTIME #90 tabs 06/06/21 02/05/24 Rx oxycodone 5 mg tablet 5 mg PO Q4HR PRN Pain, Moderate 06/20/21 Rx (4-6) #20 tabs polyethylene glycol 3350 17 gram 17 g PO DAILY #100 ea 06/20/21 Rx oral powder packet (Miralax) scopolamine base 1 mg over 3 days 1 patch topical Q72H #6 ea 06/20/21 02/05/24 Rx transdermal patch (Transderm-Scop) sennosides 8.6 mg capsule (senna) 8.6 mg PO BID #120 caps 06/20/21 Rx simethicone 80 mg chewable tablet 80 mg PO QID PRN Flatulence #30 06/20/21 Rx (Mi-Acid Gas Relief (simethicone)) tabs aspirin 81 mg tablet,delayed 81 mg PO DAILY #60 tabs 06/22/21 Rx release atorvastatin 20 mg tablet (Lipitor) 20 mg PO BEDTIME #60 tabs 06/22/21 Rx famotidine 20 mg tablet (Pepcid AC) 20 mg PO DAILY #120 tabs 06/22/21 Rx memantine 5 mg tablet (Namenda) 5 mg PO DAILY #90 tabs 06/22/21 Rx olanzapine 2.5 mg tablet 2.5 mg PO BEDTIME #60 tabs 06/22/21 Rx sucralfate 1 gram tablet 1 gm PO ACHS #120 tabs 06/22/21 Rx ciprofloxacin HCl 500 mg tablet 500 mg PO BID #14 tabs 06/27/21 Rx promethazine 25 mg tablet 25 mg PO TID PRN nausea and 06/27/21 02/05/24 Rx vomiting #20 tabs risperidone 0.25 mg tablet 0.25 mg PO TID 02/05/24 02/05/24 History Allergies Allergy/AdvReac Type Severity Reaction Status Date / Time butorphanol Allergy Unknown Verified 06/18/21 18:33 Influenza Virus Vaccines Allergy Unknown ITCHING, Verified 06/18/21 18:33 BAD REACTION meperidine Allergy Unknown Verified 06/18/21 18:33 pneumococcal vaccine Allergy Unknown Verified 06/18/21 18:33 quetiapine Allergy Unknown Verified 06/18/21 18:33 shellfish derived Allergy Unknown Verified 06/18/21 18:33 neuroleptics AdvReac Unknown PT STATES Uncoded 09/27/17 12:31 HAD REALLY BAD REACTION, UNABLE TO STATE WHAT Review of Systems Review of Systems Narrative: A 12 point review of system is negative unless otherwise stated in history of present illness Exam Vital Signs (past 8 hours): - 02/04/24 22:00 02/04/24 22:00 02/04/24 22:30 Temperature Pulse Rate 94 H Respiratory Rate Blood Pressure 110/52 L 95/53 L Pulse Oximetry 94 Oxygen Delivery Method 02/04/24 22:30 02/04/24 22:55 02/04/24 22:55 Temperature Pulse Rate 96 H 86 Respiratory Rate 18 Blood Pressure 90/55 L Pulse Oximetry 96 95 Oxygen Delivery Method 02/04/24 23:00 02/04/24 23:02 02/04/24 23:30 Temperature 98.7 F Pulse Rate 84 85 Respiratory Rate Blood Pressure Pulse Oximetry 94 94 Oxygen Delivery Method 02/04/24 23:32 02/04/24 23:32 02/05/24 00:00 Temperature Pulse Rate 84 Respiratory Rate Blood Pressure 74/39 L 73/38 L Pulse Oximetry 96 Oxygen Delivery Method 02/05/24 00:00 02/05/24 00:32 02/05/24 00:34 Temperature Pulse Rate 80 75 79 Respiratory Rate 21 Blood Pressure Pulse Oximetry 94 96 Oxygen Delivery Method 02/05/24 00:34 02/05/24 00:55 02/05/24 00:55 Temperature Pulse Rate 79 Respiratory Rate 26 H Blood Pressure 91/62 151/91 H Pulse Oximetry 98 Oxygen Delivery Method 02/05/24 00:56 02/05/24 00:56 02/05/24 01:00 Temperature Pulse Rate 78 77 Respiratory Rate 15 21 Blood Pressure 150/70 H Pulse Oximetry 98 96 Oxygen Delivery Method 02/05/24 01:01 02/05/24 01:01 02/05/24 01:11 Temperature Pulse Rate 75 77 Respiratory Rate 19 20 Blood Pressure 77/40 L Pulse Oximetry 94 Oxygen Delivery Method 02/05/24 01:11 02/05/24 01:15 02/05/24 01:15 Temperature Pulse Rate 78 Respiratory Rate 16 Blood Pressure 73/34 L 89/42 L Pulse Oximetry 97 Oxygen Delivery Method 02/05/24 01:30 02/05/24 01:31 02/05/24 01:31 Temperature Pulse Rate 72 70 Respiratory Rate 20 25 H Blood Pressure 133/58 L Pulse Oximetry 98 98 Oxygen Delivery Method 02/05/24 01:45 02/05/24 01:45 02/05/24 02:00 Temperature Pulse Rate 68 Respiratory Rate 22 Blood Pressure 149/65 H 158/70 H Pulse Oximetry 97 Oxygen Delivery Method Room Air 02/05/24 02:00 02/05/24 02:15 02/05/24 02:16 Temperature Pulse Rate 80 100 H Respiratory Rate 24 34 H Blood Pressure 178/145 H Pulse Oximetry 99 77 L Oxygen Delivery Method 02/05/24 02:16 02/05/24 02:23 02/05/24 02:23 Temperature Pulse Rate 102 H Respiratory Rate 32 H Blood Pressure 195/139 H 195/139 H Pulse Oximetry 81 L Oxygen Delivery Method 02/05/24 02:23 02/05/24 02:30 02/05/24 02:35 Temperature Pulse Rate 96 H 125 H 103 H Respiratory Rate 29 H 26 H 26 H Blood Pressure Pulse Oximetry 86 L 86 L 96 Oxygen Delivery Method 02/05/24 02:35 02/05/24 02:45 02/05/24 02:57 Temperature 99.7 F H Pulse Rate 104 H Respiratory Rate 19 Blood Pressure 119/97 H 139/66 Pulse Oximetry 98 Oxygen Delivery Method 02/05/24 02:57 02/05/24 03:00 02/05/24 03:00 Temperature Pulse Rate 106 H 99 H Respiratory Rate 24 18 Blood Pressure 105/50 L Pulse Oximetry 97 Oxygen Delivery Method 02/05/24 03:15 02/05/24 03:20 02/05/24 03:20 Temperature Pulse Rate 112 H 113 H Respiratory Rate 40 H 30 H Blood Pressure 122/70 Pulse Oximetry 84 L 95 Oxygen Delivery Method 02/05/24 03:40 02/05/24 03:40 02/05/24 03:45 Temperature 99.4 F Pulse Rate 109 H 99 H Respiratory Rate 21 22 Blood Pressure 118/71 Pulse Oximetry 96 88 L Oxygen Delivery Method 02/05/24 04:00 Temperature Pulse Rate Respiratory Rate Blood Pressure Pulse Oximetry Oxygen Delivery Method Room Air Oxygen Delivery Method Room Air Narrative Exam Narrative: Patient is awake and able to give a decent history. Not in acute distress Per nurse exam air entry equal bilaterally in the lungs. No wheezes Abdomen. Tenderness noted in the left flank region. Soft bowel sounds are heard Objective Labs 02/04/24 20:17 02/04/24 20:17 Labs: Laboratory Results - last 24 hr 02/04/24 02/04/24 02/04/24 20:17 21:20 21:40 WBC 7.2 RBC 3.68 L Hgb 12.5 Hct 37.1 MCV 100.9 H MCH 34.1 H MCHC 33.8 RDW 14.6 Plt Count 211 Neut % (Auto) 90.5 H Lymph % (Auto) 6.1 L [place] % (Auto) 3.1 Eos % (Auto) 0.1 L Baso % (Auto) 0.2 Neut # (Auto) 6500 Lymph # (Auto) 400 L [place] # (Auto) 200 Eos # (Auto) 0 Baso # (Auto) 0 Sodium 134 L Potassium 4.5 Chloride 108 H Carbon Dioxide 17 L BUN 38 H Creatinine 0.94 Estimated GFR > 60 BUN/Creatinine Ratio 40.4 H Glucose 117 H Lactate 1.1 Calcium 9.2 Total Bilirubin 0.7 AST 19 ALT 13 Alkaline Phosphatase 68 Total Creatine Kinase 33 Troponin I < 0.012 Total Protein 7.0 Albumin 4.0 Globulin 3.0 Albumin/Globulin Ratio 1.3 Procalcitonin 0.089 Urine RBC None seen Urine WBC 30-100/hpf H Ur Squamous Epith Cells 0-1 /hpf Urine Bacteria Many (>30) H Ur Culture Indicated? Specimen cultured Vol Urine Centrifuged 10ml (spun) Stl C. cayetanensis PCR Stool Rotavirus (PCR) Stool Adenovirus (PCR) Stool Astrovirus (PCR) Stool Cryptosporidium PCR Stl E.coli Shiga Tox PCR St Sh/Enteroin Ecoli PCR Stl Enterotoxigenic E PCR Stool EPEC (PCR) Stl E. histolytica PCR Stool Giardia Lamblia PCR Stool Sapovirus (PCR) Stl P. shigelloides PCR St Y.enterocolitica PCR Stool Vibrio (PCR) Stl Vibrio cholerae PCR Stl Enteroaggr Ecoli PCR Stl Norovirus GI/GII PCR Chlamy pneumoniae PCR Not detected Adenovirus (PCR) Not detected B.parapertussis DNA PCR Not detected Campylobacter (PCR) C. difficile Tox (PCR) Coronavirus OC43 (PCR) Not detected Coronavirus HKU1 (PCR) Not detected Coronavirus 229E (PCR) Not detected SARS-CoV-2 (PCR) Not detected Coronavirus NL63 (PCR) Not detected Human Metapneumovir PCR Not detected Influenza Type A (PCR) Not detected Influenza Type B (PCR) Not detected M. pneumoniae (PCR) Not detected Parainfluenza 1 (PCR) Not detected Parainfluenza 2 (PCR) Not detected Parainfluenza 3 (PCR) Not detected Parainfluenza 4 (PCR) Not detected RSV (PCR) Not detected Entero/Rhino (PCR) Not detected Salmonella (PCR) 02/05/24 02/05/24 00:35 02:08 WBC RBC Hgb Hct MCV MCH MCHC RDW Plt Count Neut % (Auto) Lymph % (Auto) [place] % (Auto) Eos % (Auto) Baso % (Auto) Neut # (Auto) Lymph # (Auto) [place] # (Auto) Eos # (Auto) Baso # (Auto) Sodium Potassium Chloride Carbon Dioxide BUN Creatinine Estimated GFR BUN/Creatinine Ratio Glucose Lactate < 0.5 L Calcium Total Bilirubin AST ALT Alkaline Phosphatase Total Creatine Kinase Troponin I Total Protein Albumin Globulin Albumin/Globulin Ratio Procalcitonin Urine RBC Urine WBC Ur Squamous Epith Cells Urine Bacteria Ur Culture Indicated? Vol Urine Centrifuged Stl C. cayetanensis PCR Not detected Stool Rotavirus (PCR) Not detected Stool Adenovirus (PCR) Not detected Stool Astrovirus (PCR) Not detected Stool Cryptosporidium PCR Not detected Stl E.coli Shiga Tox PCR Not detected St Sh/Enteroin Ecoli PCR Not detected Stl Enterotoxigenic E PCR Not detected Stool EPEC (PCR) Not detected Stl E. histolytica PCR Not detected Stool Giardia Lamblia PCR Not detected Stool Sapovirus (PCR) Not detected Stl P. shigelloides PCR Not detected St Y.enterocolitica PCR Not detected Stool Vibrio (PCR) Not detected Stl Vibrio cholerae PCR Not detected Stl Enteroaggr Ecoli PCR Not detected Stl Norovirus GI/GII PCR Not detected Chlamy pneumoniae PCR Adenovirus (PCR) B.parapertussis DNA PCR Campylobacter (PCR) Not detected C. difficile Tox (PCR) Not detected Coronavirus OC43 (PCR) Coronavirus HKU1 (PCR) Coronavirus 229E (PCR) SARS-CoV-2 (PCR) Coronavirus NL63 (PCR) Human Metapneumovir PCR Influenza Type A (PCR) Influenza Type B (PCR) M. pneumoniae (PCR) Parainfluenza 1 (PCR) Parainfluenza 2 (PCR) Parainfluenza 3 (PCR) Parainfluenza 4 (PCR) RSV (PCR) Entero/Rhino (PCR) Salmonella (PCR) Not detected Assessment & Plan Assessment & Plan narrative: 73 years old female with a past medical history of Crohn's disease, hypertension, dyslipidemia and multiple other medical issues presented to the emergency room for abdominal pain more so in the flank bilaterally left greater than the right with difficulty urination and urgency. Symptoms started since Monday. Did have fever episodes and noted to have a temp of 102 on arrival. Denies any chest pain or shortness of breath. Has nausea but no vomiting. In the emergency room, initially on arrival systolic was in the 120s. Received IV fluids and subsequently IV Dilaudid. Her blood pressure drops into the 70s to 80s needing IV fluid resuscitation. Labs revealed a white count of 7.2 with a hemoglobin of 12.5. Sodium is 134, BUN of 38 creatinine of 0.94 and a blood sugar of 117. Influenza parainfluenza/COVID and viral screen is negative. CT abdomen and pelvis shows stable appearance of the bowel with chronic postsurgical changes and no bowel obstruction. With IV fluids, blood pressure did not improve and possibility of sepsis was considered. Fluid bolus per sepsis protocol was given in addition to IV Rocephin. Central line was placed and patient was initiated on IV Levophed with a target MAP of 65 or more. Patient was admitted to the ICU for further evaluation 1. Sepsis due to urinary tract infection with septic shock and further complicated by possible hypovolemia. Continue IV fluid per sepsis protocol and continue the Rocephin for now pending cultures of the urine and blood. Serum lactate is less than 0.5/procalcitonin is 0.089. Monitor closely before further broadening the antibiotic spectrum. Stool assay shows no evidence of enterovirus or other pathogens. 2. Acute pyelonephritis. IV Rocephin as noted above and trend closely 3 dehydration with hypovolemia. IV normal saline at 125 mL/h following the fluid bolus 4. DVT prophylaxis will be with Lovenox 5. Anxiety. Verify the home meds before resuming any medications Patient will be admitted under inpatient status given the sepsis with shock and concern for urinary tract infection/pyelonephritis with expected length of stay to than 2 midnights Time-Based Coding :: [TOTAL MINUTES] spent with patient and on the chart (including review of chart, obtaining history, exam, reviewing outside data, placing orders, documenting exam and treatment plan, and counseling patient) on [DATE]. Quality VTE Deep Vein Thrombosis/Pulmonary Embolism Present on Admission: No
--- NOTE | 2024-02-05 06:15 | PC.NURSE ---
Admit/Night Note-Patient brought to ICU room 230 at 0335. A/Ox4, [place] without aids, able to transfer to [facility], then bed with walker and SBA. Levophed infusing at 0.05mcg/kg/min. NS @ 125ml/hr. Patient had chills, T99.4, IV Tylenol complete. Patient states she has not been able to pee. Bladder scanned 310ml, patient able to void 175ml cloudy shadi urine in [facility]. Eitzen given for pain. Levophed titrated up to 0.08mcg/kg/min to keep MAP >65.
[2024-02-05 07:12] LABS: Add Manual Diff / Slide Review NO; Basophils Absolute Auto 0 /uL (0-100); Basophils Percent Auto 0.2 % (0-2); Eosinophils Absolute Auto 0 /uL (0-450); Hematocrit 29.2 % (36-46); Hemoglobin 9.9 g/dL (12.0-16.0); Lymphocytes Absolute Auto 600 /uL (1100-4500); Lymphocytes Percent Auto 7.3 % (25-40); Mean Corpuscular Hemoglobin 34.3 PG (26-34); Mean Corpuscular Volume 100.9 fL (80-100); Monocytes Absolute Auto 500 /uL (0-900); Monocytes Percent Auto 6.6 % (3-14); Neutrophils Absolute Auto 7100 /uL (1500-7000); Neutrophils Percent Auto 85.9 % (50-75); Platelet Count 177 X10^3/uL (150-400); Red Blood Cell Count 2.89 X10^6/uL (4.0-5.2); Red Cell Distribution Width 14.7 % (11.6-14.8); White Blood Cell Count 8.3 X10^3/uL (4.5-11.0)
[2024-02-05 07:38] LABS: Lactate (Lactic Acid) 1.7 mmol/L (0.7-2.1)
[2024-02-05 07:39] LABS: Alanine Aminotransferase 14 IU/L (<35); Albumin 2.7 g/dL (3.5-5.0); Albumin Globulin Ratio 1.2 (1.0-2.8); Alkaline Phosphatase 48 U/L (38-126); Aspartate Aminotransferase 16 IU/L (14-36); BUN Creatinine Ratio 32.9 (6-22); Bilirubin Total 0.2 mg/dL (0.2-1.3); Blood Urea Nitrogen 28 mg/dL (7-17); Calcium 7.7 mg/dL (8.4-10.2); Carbon Dioxide 14 mmol/L (22-32); Chloride 113 mmol/L (98-107); Estimated Glomerular Filt Rate > 60 mL/min (>60); Globulin 2.3 g/dL (1.7-4.1); Glucose 134 mg/dL (80-110); HEMOLYSIS < 15 (0-50); Potassium 3.3 mmol/L (3.4-5.1); Sodium 132 mmol/L (137-145)
--- NOTE | 2024-02-05 07:48 | P.HP_ITS ---
History of Present Illness History of Present Illness Date Patient Seen: 02/05/24 Chief complaint: severe abd pain Narrative: From night doctor: 73 years old female with a past medical history of Crohn's disease, hypertension, dyslipidemia and multiple other medical issues presented to the emergency room for abdominal pain more so in the flank bilaterally left greater than the right with difficulty urination and urgency. Symptoms started since Monday. Did have fever episodes and noted to have a temp of 102 on arrival. Denies any chest pain or shortness of breath. Has nausea but no vomiting. In the emergency room, initially on arrival systolic was in the 120s. Received IV fluids and subsequently IV Dilaudid. Her blood pressure drops into the 70s to 80s needing IV fluid resuscitation. Labs revealed a white count of 7.2 with a hemoglobin of 12.5. Sodium is 134, BUN of 38 creatinine of 0.94 and a blood sugar of 117. Influenza parainfluenza/COVID and viral screen is negative. CT abdomen and pelvis shows stable appearance of the bowel with chronic postsurgical changes and no bowel obstruction. With IV fluids, blood pressure did not improve and possibility of sepsis was considered. Fluid bolus per sepsis protocol was given in addition to IV Rocephin. Central line was placed and patient was initiated on IV Levophed with a target MAP of 65 or more. Patient was admitted to the ICU for further evaluation. Additional information: She was having a lot of ongoing pain which she describes as were upper quadrant with some radiate to the right flank. She notes history of gallstones. CT was suggestive of cholestasis. She has some nausea, no vomiting. Her blood pressure is improved on norepinephrine, she was a right IJ central venous catheter. [facility] Medical History Generalized weakness Small bowel obstruction Surgical History H/O thyroidectomy Family History Mother Diabetes mellitus Heart disease Father Diabetes mellitus Heart disease Brother Myocardial infarction CVA (cerebral vascular accident) Other Hypertension Social History household members: spouse Smoking Status: Never smoker alcohol intake: former Meds Home Medications and Allergies Home Medications Medication Instructions Recorded Confirmed Type albuterol sulfate 90 mcg/actuation 2 puff INH Q4HP PRN Bronchospasm 04/17/16 02/05/24 History aerosol inhaler (Ventolin HFA) ##0 divalproex 500 mg tablet,extended 1,500 mg PO HS ##0 04/17/16 06/18/21 History release 24 hr lamotrigine 200 mg tablet 400 mg PO QDAY ##0 04/17/16 02/05/24 History (Lamictal) levothyroxine 75 mcg tablet 0.075 mg PO QDAY ##0 04/17/16 02/05/24 History (Synthroid) losartan 25 mg tablet 75 mg PO QDAY ##0 04/17/16 02/05/24 History acetaminophen 500 mg tablet 1,000 mg PO Q6HP PRN Abdominal 05/28/21 02/05/24 History (Tylenol Extra Strength) Discomfort famotidine 20 mg tablet (Pepcid AC) 20 mg PO DAILY #60 tabs 06/06/21 06/18/21 Rx gabapentin 300 mg capsule 300 mg PO TID #120 caps 06/06/21 06/18/21 Rx melatonin 3 mg tablet 6 mg (2 x 3 mg) PO BEDTIME #90 tabs 06/06/21 06/18/21 Rx methocarbamol 500 mg tablet 500 mg PO TID #90 tabs 06/06/21 06/18/21 Rx metoclopramide HCl 5 mg tablet 5 mg PO AC #90 tabs 06/06/21 06/18/21 Rx oxycodone 5 mg tablet 5 mg PO Q6H PRN pain #20 tabs 06/06/21 06/18/21 Rx polyethylene glycol 3350 17 gram 17 g PO BID #30 ea 06/06/21 06/18/21 Rx oral powder packet sucralfate 1 gram tablet 1 gm PO ACHS #120 tabs 06/06/21 06/18/21 Rx tramadol 50 mg tablet 50 mg PO TID #90 tabs 06/06/21 06/18/21 Rx trazodone 50 mg tablet 50 mg PO BEDTIME #90 tabs 06/06/21 02/05/24 Rx oxycodone 5 mg tablet 5 mg PO Q4HR PRN Pain, Moderate 06/20/21 Rx (4-6) #20 tabs polyethylene glycol 3350 17 gram 17 g PO DAILY #100 ea 06/20/21 Rx oral powder packet (Miralax) scopolamine base 1 mg over 3 days 1 patch topical Q72H #6 ea 06/20/21 02/05/24 Rx transdermal patch (Transderm-Scop) sennosides 8.6 mg capsule (senna) 8.6 mg PO BID #120 caps 06/20/21 Rx simethicone 80 mg chewable tablet 80 mg PO QID PRN Flatulence #30 06/20/21 Rx (Mi-Acid Gas Relief (simethicone)) tabs aspirin 81 mg tablet,delayed 81 mg PO DAILY #60 tabs 06/22/21 Rx release atorvastatin 20 mg tablet (Lipitor) 20 mg PO BEDTIME #60 tabs 06/22/21 Rx famotidine 20 mg tablet (Pepcid AC) 20 mg PO DAILY #120 tabs 06/22/21 Rx memantine 5 mg tablet (Namenda) 5 mg PO DAILY #90 tabs 06/22/21 Rx olanzapine 2.5 mg tablet 2.5 mg PO BEDTIME #60 tabs 06/22/21 Rx sucralfate 1 gram tablet 1 gm PO ACHS #120 tabs 06/22/21 Rx ciprofloxacin HCl 500 mg tablet 500 mg PO BID #14 tabs 06/27/21 Rx promethazine 25 mg tablet 25 mg PO TID PRN nausea and 06/27/21 02/05/24 Rx vomiting #20 tabs risperidone 0.25 mg tablet 0.25 mg PO TID 02/05/24 02/05/24 History Allergies Allergy/AdvReac Type Severity Reaction Status Date / Time butorphanol Allergy Unknown Verified 06/18/21 18:33 Influenza Virus Vaccines Allergy Unknown ITCHING, Verified 06/18/21 18:33 BAD REACTION meperidine Allergy Unknown Verified 06/18/21 18:33 pneumococcal vaccine Allergy Unknown Verified 06/18/21 18:33 quetiapine Allergy Unknown Verified 06/18/21 18:33 shellfish derived Allergy Unknown Verified 06/18/21 18:33 neuroleptics AdvReac Unknown PT STATES Uncoded 09/27/17 12:31 HAD REALLY BAD REACTION, UNABLE TO STATE WHAT Review of Systems Review of Systems Narrative: All else reviewed and otherwise unremarkable except as noted in the history and physical. Exam Vital Signs (past 8 hours): - 02/05/24 00:00 02/05/24 00:00 02/05/24 00:32 Temperature Pulse Rate 80 75 Respiratory Rate Blood Pressure 73/38 L Pulse Oximetry 94 Oxygen Delivery Method 02/05/24 00:34 02/05/24 00:34 02/05/24 00:55 Temperature Pulse Rate 79 Respiratory Rate 21 Blood Pressure 91/62 151/91 H Pulse Oximetry 96 Oxygen Delivery Method 02/05/24 00:55 02/05/24 00:56 02/05/24 00:56 Temperature Pulse Rate 79 78 Respiratory Rate 26 H 15 Blood Pressure 150/70 H Pulse Oximetry 98 98 Oxygen Delivery Method 02/05/24 01:00 02/05/24 01:01 02/05/24 01:01 Temperature Pulse Rate 77 75 Respiratory Rate 21 19 Blood Pressure 77/40 L Pulse Oximetry 96 Oxygen Delivery Method 02/05/24 01:11 02/05/24 01:11 02/05/24 01:15 Temperature Pulse Rate 77 78 Respiratory Rate 20 16 Blood Pressure 73/34 L Pulse Oximetry 94 97 Oxygen Delivery Method 02/05/24 01:15 02/05/24 01:30 02/05/24 01:31 Temperature Pulse Rate 72 Respiratory Rate 20 Blood Pressure 89/42 L 133/58 L Pulse Oximetry 98 Oxygen Delivery Method 02/05/24 01:31 02/05/24 01:45 02/05/24 01:45 Temperature Pulse Rate 70 68 Respiratory Rate 25 H 22 Blood Pressure 149/65 H Pulse Oximetry 98 97 Oxygen Delivery Method Room Air 02/05/24 02:00 02/05/24 02:00 02/05/24 02:15 Temperature Pulse Rate 80 100 H Respiratory Rate 24 34 H Blood Pressure 158/70 H Pulse Oximetry 99 77 L Oxygen Delivery Method 02/05/24 02:16 02/05/24 02:16 02/05/24 02:23 Temperature Pulse Rate 102 H Respiratory Rate 32 H Blood Pressure 178/145 H 195/139 H Pulse Oximetry 81 L Oxygen Delivery Method 02/05/24 02:23 02/05/24 02:23 02/05/24 02:30 Temperature Pulse Rate 96 H 125 H Respiratory Rate 29 H 26 H Blood Pressure 195/139 H Pulse Oximetry 86 L 86 L Oxygen Delivery Method 02/05/24 02:35 02/05/24 02:35 02/05/24 02:45 Temperature 99.7 F H Pulse Rate 103 H 104 H Respiratory Rate 26 H 19 Blood Pressure 119/97 H Pulse Oximetry 96 98 Oxygen Delivery Method 02/05/24 02:57 02/05/24 02:57 02/05/24 03:00 Temperature Pulse Rate 106 H 99 H Respiratory Rate 24 18 Blood Pressure 139/66 Pulse Oximetry 97 Oxygen Delivery Method 02/05/24 03:00 02/05/24 03:15 02/05/24 03:20 Temperature Pulse Rate 112 H Respiratory Rate 40 H Blood Pressure 105/50 L 122/70 Pulse Oximetry 84 L Oxygen Delivery Method 02/05/24 03:20 02/05/24 03:40 02/05/24 03:40 Temperature 99.4 F Pulse Rate 113 H 109 H Respiratory Rate 30 H 21 Blood Pressure 118/71 Pulse Oximetry 95 96 Oxygen Delivery Method 02/05/24 03:45 02/05/24 04:00 02/05/24 04:00 Temperature Pulse Rate 99 H 92 H Respiratory Rate 22 23 Blood Pressure Pulse Oximetry 88 L 89 L Oxygen Delivery Method Room Air 02/05/24 04:15 02/05/24 04:30 02/05/24 04:30 Temperature Pulse Rate 87 84 Respiratory Rate 25 H 23 Blood Pressure 84/49 L Pulse Oximetry 96 98 Oxygen Delivery Method 02/05/24 04:32 02/05/24 04:32 02/05/24 04:45 Temperature Pulse Rate 85 81 Respiratory Rate 23 20 Blood Pressure 84/46 L Pulse Oximetry 99 100 Oxygen Delivery Method 02/05/24 04:45 02/05/24 05:00 02/05/24 05:00 Temperature Pulse Rate 81 Respiratory Rate 21 Blood Pressure 88/52 L 86/50 L Pulse Oximetry 98 Oxygen Delivery Method 02/05/24 05:15 02/05/24 05:15 02/05/24 05:30 Temperature Pulse Rate 85 83 Respiratory Rate 26 H 31 H Blood Pressure 93/51 L Pulse Oximetry 98 99 Oxygen Delivery Method 02/05/24 05:42 02/05/24 05:42 Temperature Pulse Rate 82 Respiratory Rate 27 H Blood Pressure 92/59 L Pulse Oximetry 87 L Oxygen Delivery Method Oxygen Delivery Method Room Air Narrative Exam Narrative: NAD, alert and oriented, fluent speech, calm. Normocephalic skull, EOMI, anicteric sclera, symmetric pupils. Oropharynx unremarkable, no droop. Neck supple, midline trachea, no adenopathy. Lungs clear, normal rate and effort. Heart regular, no murmur gallop or rub. Abdomen is soft, non distended and she was right upper quadrant tenderness. Extremities are free of edema. Skin is free of rash or lesions. Joints are not swollen or deformed. Judgment appears to be normal. Right IJ catheter in neck. Objective Labs 02/05/24 07:00 02/05/24 07:00 Labs: Laboratory Results - last 24 hr 02/04/24 02/04/24 02/04/24 20:17 21:20 21:40 WBC 7.2 RBC 3.68 L Hgb 12.5 Hct 37.1 MCV 100.9 H MCH 34.1 H MCHC 33.8 RDW 14.6 Plt Count 211 Neut % (Auto) 90.5 H Lymph % (Auto) 6.1 L Wolfe % (Auto) 3.1 Eos % (Auto) 0.1 L Baso % (Auto) 0.2 Neut # (Auto) 6500 Lymph # (Auto) 400 L Wolfe # (Auto) 200 Eos # (Auto) 0 Baso # (Auto) 0 Sodium 134 L Potassium 4.5 Chloride 108 H Carbon Dioxide 17 L BUN 38 H Creatinine 0.94 Estimated GFR > 60 BUN/Creatinine Ratio 40.4 H Glucose 117 H Lactate 1.1 Calcium 9.2 Total Bilirubin 0.7 AST 19 ALT 13 Alkaline Phosphatase 68 Total Creatine Kinase 33 Troponin I < 0.012 Total Protein 7.0 Albumin 4.0 Globulin 3.0 Albumin/Globulin Ratio 1.3 Procalcitonin 0.089 Urine RBC None seen Urine WBC 30-100/hpf H Ur Squamous Epith Cells 0-1 /hpf Urine Bacteria Many (>30) H Ur Culture Indicated? Specimen cultured Vol Urine Centrifuged 10ml (spun) Nasal Screen MRSA (PCR) Stl C. cayetanensis PCR Stool Rotavirus (PCR) Stool Adenovirus (PCR) Stool Astrovirus (PCR) Stool Cryptosporidium PCR Stl E.coli Shiga Tox PCR St Sh/Enteroin Ecoli PCR Stl Enterotoxigenic E PCR Stool EPEC (PCR) Stl E. histolytica PCR Stool Giardia Lamblia PCR Stool Sapovirus (PCR) Stl P. shigelloides PCR St Y.enterocolitica PCR Stool Vibrio (PCR) Stl Vibrio cholerae PCR Stl Enteroaggr Ecoli PCR Stl Norovirus GI/GII PCR Chlamy pneumoniae PCR Not detected Adenovirus (PCR) Not detected B.parapertussis DNA PCR Not detected Campylobacter (PCR) C. difficile Tox (PCR) Coronavirus OC43 (PCR) Not detected Coronavirus HKU1 (PCR) Not detected Coronavirus 229E (PCR) Not detected SARS-CoV-2 (PCR) Not detected Coronavirus NL63 (PCR) Not detected Human Metapneumovir PCR Not detected Influenza Type A (PCR) Not detected Influenza Type B (PCR) Not detected M. pneumoniae (PCR) Not detected Parainfluenza 1 (PCR) Not detected Parainfluenza 2 (PCR) Not detected Parainfluenza 3 (PCR) Not detected Parainfluenza 4 (PCR) Not detected RSV (PCR) Not detected Entero/Rhino (PCR) Not detected Salmonella (PCR) 02/05/24 02/05/24 02/05/24 00:35 02:08 03:45 WBC RBC Hgb Hct MCV MCH MCHC RDW Plt Count Neut % (Auto) Lymph % (Auto) Wolfe % (Auto) Eos % (Auto) Baso % (Auto) Neut # (Auto) Lymph # (Auto) Wolfe # (Auto) Eos # (Auto) Baso # (Auto) Sodium Potassium Chloride Carbon Dioxide BUN Creatinine Estimated GFR BUN/Creatinine Ratio Glucose Lactate < 0.5 L Calcium Total Bilirubin AST ALT Alkaline Phosphatase Total Creatine Kinase Troponin I Total Protein Albumin Globulin Albumin/Globulin Ratio Procalcitonin Urine RBC Urine WBC Ur Squamous Epith Cells Urine Bacteria Ur Culture Indicated? Vol Urine Centrifuged Nasal Screen MRSA (PCR) Not detected Stl C. cayetanensis PCR Not detected Stool Rotavirus (PCR) Not detected Stool Adenovirus (PCR) Not detected Stool Astrovirus (PCR) Not detected Stool Cryptosporidium PCR Not detected Stl E.coli Shiga Tox PCR Not detected St Sh/Enteroin Ecoli PCR Not detected Stl Enterotoxigenic E PCR Not detected Stool EPEC (PCR) Not detected Stl E. histolytica PCR Not detected Stool Giardia Lamblia PCR Not detected Stool Sapovirus (PCR) Not detected Stl P. shigelloides PCR Not detected St Y.enterocolitica PCR Not detected Stool Vibrio (PCR) Not detected Stl Vibrio cholerae PCR Not detected Stl Enteroaggr Ecoli PCR Not detected Stl Norovirus GI/GII PCR Not detected Chlamy pneumoniae PCR Adenovirus (PCR) B.parapertussis DNA PCR Campylobacter (PCR) Not detected C. difficile Tox (PCR) Not detected Coronavirus OC43 (PCR) Coronavirus HKU1 (PCR) Coronavirus 229E (PCR) SARS-CoV-2 (PCR) Coronavirus NL63 (PCR) Human Metapneumovir PCR Influenza Type A (PCR) Influenza Type B (PCR) M. pneumoniae (PCR) Parainfluenza 1 (PCR) Parainfluenza 2 (PCR) Parainfluenza 3 (PCR) Parainfluenza 4 (PCR) RSV (PCR) Entero/Rhino (PCR) Salmonella (PCR) Not detected 02/05/24 07:00 WBC 8.3 RBC 2.89 L Hgb 9.9 L Hct 29.2 L MCV 100.9 H MCH 34.3 H MCHC 34.0 RDW 14.7 Plt Count 177 Neut % (Auto) 85.9 H Lymph % (Auto) 7.3 L Wolfe % (Auto) 6.6 Eos % (Auto) 0.0 L Baso % (Auto) 0.2 Neut # (Auto) 7100 H Lymph # (Auto) 600 L Wolfe # (Auto) 500 Eos # (Auto) 0 Baso # (Auto) 0 Sodium Potassium Chloride Carbon Dioxide BUN Creatinine Estimated GFR BUN/Creatinine Ratio Glucose Lactate Calcium Total Bilirubin AST ALT Alkaline Phosphatase Total Creatine Kinase Troponin I Total Protein Albumin Globulin Albumin/Globulin Ratio Procalcitonin Urine RBC Urine WBC Ur Squamous Epith Cells Urine Bacteria Ur Culture Indicated? Vol Urine Centrifuged Nasal Screen MRSA (PCR) Stl C. cayetanensis PCR Stool Rotavirus (PCR) Stool Adenovirus (PCR) Stool Astrovirus (PCR) Stool Cryptosporidium PCR Stl E.coli Shiga Tox PCR St Sh/Enteroin Ecoli PCR Stl Enterotoxigenic E PCR Stool EPEC (PCR) Stl E. histolytica PCR Stool Giardia Lamblia PCR Stool Sapovirus (PCR) Stl P. shigelloides PCR St Y.enterocolitica PCR Stool Vibrio (PCR) Stl Vibrio cholerae PCR Stl Enteroaggr Ecoli PCR Stl Norovirus GI/GII PCR Chlamy pneumoniae PCR Adenovirus (PCR) B.parapertussis DNA PCR Campylobacter (PCR) C. difficile Tox (PCR) Coronavirus OC43 (PCR) Coronavirus HKU1 (PCR) Coronavirus 229E (PCR) SARS-CoV-2 (PCR) Coronavirus NL63 (PCR) Human Metapneumovir PCR Influenza Type A (PCR) Influenza Type B (PCR) M. pneumoniae (PCR) Parainfluenza 1 (PCR) Parainfluenza 2 (PCR) Parainfluenza 3 (PCR) Parainfluenza 4 (PCR) RSV (PCR) Entero/Rhino (PCR) Salmonella (PCR) Assessment & Plan Assessment & Plan narrative: 1. Septic shock, present on admission and active. This is responded norepinephrine. She has a normal lactic acid. 2. Acute pyelonephritis. Present on admission and active. IV Rocephin as noted above and trend closely. 3. Right upper quadrant tenderness, present on admission and active. 3. Dehydration with hypovolemia. Present on admission and active. IV normal saline at 125 mL/h following the fluid bolus 4. Anxiety. Present on admission and active. Verify the home meds before resuming any medications PLAN: -IV fluids -continue antibiotics -follow cultures -right upper quadrant ultrasound to rule out cholecystitis -wean pressors as able. DVT prophylaxis will be with Lovenox Full code. Time-Based Coding :: 40 min spent with patient and on the chart (including review of chart, obtaining history, exam, reviewing outside data, placing orders, documenting exam and treatment plan, and counseling patient) on 02/04. Quality VTE Deep Vein Thrombosis/Pulmonary Embolism Present on Admission: No MIPS - Admit The patient?s Advance Care plan is not present because I confirmed today that the patient does not wish or was not able to name a surrogate decision maker or provide an Advance Care Plan.: Yes MIPS - Meds 'Current medications' to include all prescriptions, [id number] products, herbals, cannabis/cannabidiol products, and vitamin/mineral/dietary (nutritional) supplements. I have utilized all available resources to obtain, update, or review the patient?s current medications. [If Yes, STOP here]: Yes
[2024-02-05] MEDS: ONDANSETRON 4 MG/2 ML INJ IV (09:14)
--- NOTE | 2024-02-05 09:18 | DI.US.S_ITS ---
PROCEDURE: US ABDOMEN LIMITED INDICATIONS: RUQ pain TECHNIQUE: Real-time scanning was performed of the abdominal and retroperitoneal organs, with image documentation. COMPARISON: [facility], , US ABDOMEN LIMITED, 05/28/2021, 6:34. FINDINGS: Liver: Homogeneous echotexture. No evidence of focal mass lesion. No intra hepatic biliary ductal dilatation Gallbladder: Cholelithiasis without gallbladder wall thickening or pericholecystic fluid Common Bile Duct: 8.0 mm Pancreas: Unremarkable as visualized Incidental right renal cyst 4.3 cm without hydronephrosis. IMPRESSION: 1. Cholelithiasis without acute cholecystitis. 2. Minimally dilated CBD 8.0 mm. Consider follow-up MRCP to assess for choledocholithiasis Approved by: Lobo Pablo M.D. on 02/05/2024 at 15:32
[2024-02-05] MEDS: SODIUM CHLORIDE 0.9% FLUSH 10 ML IV ×2 (09:34→20:04)
[2024-02-05] MEDS: POTASSIUM CHLORIDE IN WATER 10 MEQ/100 ML PIGGYBACK 100 MEQ IV ×4 (09:57→13:06)
[2024-02-05] MEDS: ACETAMINOPHEN 325 MG TABLET 650 MG PO ×3 (11:05→22:00)
[2024-02-05] MEDS: PIPERACILLIN/TAZO 3.375 GM in SODIUM CHLORIDE 0.9% 100 ML IV ×2 (13:05→20:03)
[2024-02-05 15:29] LABS: MRSA (Nasal) PCR NOT DETECTED (Not Detect)
--- NOTE | 2024-02-05 15:36 | CM.DANOTE ---
Patient is a 73 yo female who was admitted INPT Status on 02/05/24 for Septic Shock and Pyelonephritis. Pt has MCR and PRE PREFERRED for insurance and her PCP is Judy Davison at the [facility]. EMR was reviewed. Per , pt with hx of Crohns disease and admitted for Septic Shock and pyelonephritis and to have ultrasound of her gallbladder. Per RN, pt has been SBA with FWW in room due to her dizziness and vitals more stable and no other concerns noted. SW met bedside with pt and explained role and she confirms she lives in [place] with her and both are independent at baseline with ADLs. Pt still drives some and uses a cane at baseline for ambulation. Pt states she has osteoarthritis and is still recovering from a prior hip and wrist fx and therefore she has been working hard with outpt PT on strengthening to reduce her fall risk as she know she is high risk for fxs. Pt confirms her PCP and requests SW fax clinicals to the [facility] so her PCP is aware of her admission. Pt preference is home and does not anticipate any further needs when stable for discharge. Plan: SW to follow to confirm safe plan of home with spouse when medically stable and to send clinicals to her PCP for review and any further identified discharge planning needs. SRIDHAR Sprague Discharge Planning/Care Management CM Discharge Assessment Start: 02/05/24 15:34 Freq: Status: Active Protocol: Document 02/05/24 15:34 BF (Rec: 02/05/24 15:35 BF [id number]) Discharge Planning Assessment Assigned Locomotive Supervisor SRIDHAR Turcios DPOA/Assigned Designee Name spouse Willard Contact Information [phone] Advance Directives? Yes Advance Directives on File Yes History Provided By Patient,Medical Record Has Patient been admitted in last 30 No days? Prior Living Arrangements House Household Members spouse Type of transporation used prior to Drives own vehicle admit Independent with ADL's Yes Is patient alert and oriented? Yes Caregiver for Another No Community Services used prior to Physical Therapy admission: Comment prior hip and wrist fx, has osteoarthritis DME Already Rented / Owned Cane Patient/Family Preference OP OT Therapy Barriers to Discharge No Discharge Plan Home Community Services Physical Therapy Transportation Arrangement spouse Referrals Initiated None needed Whiteboard Updated in Patient Room with Yes name and ext. # of Locomotive Supervisor Review Status In Process Please Provide Date Initial DC 02/05/24 Assessment Was Performed Next Review Type Continued Stay Review
--- NOTE | 2024-02-05 16:25 | PC.NURSE ---
Notified provider Dr. Solo patient's pain 03/28, writhing, crying after administration of pain medication. New orders received. Patient stated, that won't work for me but I guess I'll try it. Assisted patient in repositioning, attempted warm blankets and cold therapy for pain relief. Patient stating no relief. Provider Dr. Solo notified. New orders received.
[2024-02-05] MEDS: KETOROLAC 30 MG/ML VIAL 15 MG IV (16:34)
[2024-02-05] MEDS: HYDROMORPHONE 1 MG INJ IV ×2 (17:01→21:14)
[2024-02-05] MEDS: risperiDONE 0.25 MG TABLET PO (21:52)
[2024-02-05] MEDS: TRAZODONE 50 MG TABLET PO (21:52)
[2024-02-05] MEDS: lamoTRIgine 100 MG TABLET 400 MG PO (21:53)
[2024-02-05] MEDS: DIVALPROEX ER 250 MG TAB 1500 MG PO (21:53)
--- NOTE | 2024-02-05 22:27 | PC.NURSE ---
Addendum entered by Layne Whitt R.N. 02/05/24 22:37: Patient is resting, eyes closed, HR 113, BP 113/68, RR 20s. Original Note: Field Marketing Specialist Notes-At change of shift, reached out to NOC Hospitalist to order patients HS meds which she was requesting. At 2100, patient rated abdominal and hip pain 8/10, mediated with 1mg IV Dilaudid, which appeared to be effective, then at 2200, patient started shivering uncontrollably, and still had hip pain, T 102.8, HR 120, BP 112/76, Tylenol given along with her HS meds which were ordered. Zosyn has been infusing since 2029.
[2024-02-06] VITALS (26 sets, daily range): BP systolic 88–142; BP diastolic 44–67; PULSE 64–107; RESP 14–28; TEMP 36.6–38.4; O2SAT 89–97
[2024-02-06] MEDS: PIPERACILLIN/TAZO 3.375 GM in SODIUM CHLORIDE 0.9% 100 ML IV (04:27)
[2024-02-06] MEDS: SODIUM CHLORIDE 0.9% 1,000 ML 125 ML IV ×3 (04:28→23:25)
[2024-02-06 05:10] LABS: Hematocrit 26.2 % (36-46); Hemoglobin 8.8 g/dL (12.0-16.0); Mean Corpuscular HGB Conc 33.7 % (30-36); Mean Corpuscular Hemoglobin 34.1 PG (26-34); Mean Corpuscular Volume 101.3 fL (80-100); Platelet Count 139 X10^3/uL (150-400); Red Blood Cell Count 2.58 X10^6/uL (4.0-5.2); Red Cell Distribution Width 14.5 % (11.6-14.8); White Blood Cell Count 5.3 X10^3/uL (4.5-11.0)
[2024-02-06 05:21] LABS: Alanine Aminotransferase 12 IU/L (<35); Albumin 2.1 g/dL (3.5-5.0); Albumin Globulin Ratio 0.9 (1.0-2.8); Alkaline Phosphatase 50 U/L (38-126); Aspartate Aminotransferase 25 IU/L (14-36); BUN Creatinine Ratio 18.8 (6-22); Bilirubin Total 0.2 mg/dL (0.2-1.3); Blood Urea Nitrogen 15 mg/dL (7-17); Calcium 7.4 mg/dL (8.4-10.2); Carbon Dioxide 14 mmol/L (22-32); Chloride 117 mmol/L (98-107); Estimated Glomerular Filt Rate > 60 mL/min (>60); Globulin 2.4 g/dL (1.7-4.1); Glucose 89 mg/dL (80-110); HEMOLYSIS < 15 (0-50); Potassium 4.1 mmol/L (3.4-5.1); Sodium 135 mmol/L (137-145); Total Protein 4.5 g/dL (6.3-8.2)
[2024-02-06] MEDS: HYDROMORPHONE 1 MG INJ IV ×3 (08:22→20:34)
[2024-02-06] MEDS: ACETAMINOPHEN 325 MG TABLET 650 MG PO (08:22)
[2024-02-06] MEDS: LEVOTHYROXINE 75 MCG TABLET PO (08:23)
--- NOTE | 2024-02-06 08:39 | DI.MRI.S_ITS ---
PROCEDURE: MR ABDOMEN WO CON INDICATIONS: dilated CBD, persistent fever, r o cholangitis TECHNIQUE: Coronal T2 haste, axial T2 haste, coronal T2 haste thin, axial T2 haste thin and MIP images were acquired. Patient was unable to complete the exam. COMPARISON: [facility], US, US ABDOMEN LIMITED, 02/05/2024, 11:13. [facility], CT, CT ABDOMEN PELVIS W CON, 02/04/2024, 22:37. [facility], CT, CT ABDOMEN PELVIS W CON, 12/14/2023, 14:37. [facility], MR, MR ABDOMEN WO CON, 05/28/2021, 15:15. FINDINGS: Image quality: Excellent. Lung bases: Small bilateral pleural effusions. Liver: No obvious focal lesion. Gallbladder: Several gallstones. Trace pericholecystic fluid. Bile ducts: Common hepatic duct measures 0.6 cm. CBD measures 0.3 cm. CBD tapers distally. No intrahepatic biliary ductal dilatation. No choledocholithiasis demonstrated. Pancreas: No peripancreatic fluid collection. No pancreatic ductal dilatation. Spleen: No splenomegaly. Adrenal glands: No nodule. Kidneys: No hydronephrosis. Multiple small T2 hyperintense cysts bilaterally. No dilated loops of bowel. No significant ascites. Minimal scoliosis. No significant osseous lesion identified. IMPRESSION: Exam is somewhat limited as the patient was unable to complete all sequences. 1. No choledocholithiasis. Gallstones. 2. No biliary or pancreatic ductal dilatation. 3. Small bilateral pleural effusions. Dictated by: Mariano Bender M.D. on 02/06/2024 at 16:30 Approved by: Mariano Bender M.D. on 02/06/2024 at 16:37
[2024-02-06] MEDS: risperiDONE 0.25 MG TABLET PO ×3 (08:41→20:35)
[2024-02-06] MEDS: lamoTRIgine 100 MG TABLET 400 MG PO (08:41)
[2024-02-06] MEDS: SODIUM CHLORIDE 0.9% FLUSH 10 ML IV ×2 (08:44→20:35)
[2024-02-06] MEDS: BUSPIRONE 5 MG TABLET 15 MG PO ×2 (09:29→20:34)
[2024-02-06] MEDS: ALBUTEROL 2.5 MG/3 ML NEB (ADULT) INH (10:53)
[2024-02-06] MEDS: PROMETHAZINE 25 MG TABLET PO (10:57)
--- NOTE | 2024-02-06 11:51 | CM.DPC ---
DCP COnt: Per MD and RN, pt with significant pain overnight and imaging ordered of gallbladder as potential that stone is causing increased pain and will consult Surgeon and not yet medically stable to discharge yet today. SW called pt's PCP office [facility] and confirmed pt established still with Dr. Davison and confirmed fax number to send pt's d/c summary when available at discharge per pt request and fax number [phone]. SRIDHAR Sprague
[2024-02-06] MEDS: HYDROCODONE/ACET 5/325 TABLET 1 TAB PO (13:02)
[2024-02-06] MEDS: PIPERACILLIN/TAZO 4.5 GM in SODIUM CHLORIDE 0.9% 100 ML IV ×2 (13:08→20:32)
[2024-02-06] MEDS: LORazepam 1 MG TABLET PO (14:21)
[2024-02-06] MEDS: ONDANSETRON 4 MG/2 ML INJ IV (15:13)
--- NOTE | 2024-02-06 17:38 | P.PN_ITS ---
Subjective Subjective Interval history: 73 F admitted with septic shock, presumed urinary source. Still febrile. Has ruq pain. possible dilated CBD on imaging did MRI which did not show gallbladder infection or possible cholangitis. Increased zosyn dose given prior psuedomonas infection in the past. BP improved, now off pressors and downgraded to floor care. She continues to feel ill, with RUQ abdominal pain, nausea but no emesis. No diarrhea, BRBPR, or melena. Exam Vital Signs (past 8 hours): - 02/06/24 10:00 02/06/24 11:00 02/06/24 12:16 Temperature Pulse Rate 64 68 Respiratory Rate 18 20 Blood Pressure 94/52 L 102/51 L Pulse Oximetry 97 97 Oxygen Delivery Method Room Air 02/06/24 16:44 Temperature 98.4 F Pulse Rate 83 Respiratory Rate 16 Blood Pressure 94/53 L Pulse Oximetry 92 Oxygen Delivery Method Oxygen Delivery Method Room Air Oxygen Flow Rate 0 Narrative Exam Narrative: NAD, alert and oriented, fluent speech, calm. Normocephalic skull, EOMI, anicteric sclera, symmetric pupils. Oropharynx unremarkable, no droop. Neck supple, midline trachea, no adenopathy. Lungs clear, normal rate and effort. Heart regular, no murmur gallop or rub. Abdomen is soft, non distended and she was right upper quadrant tenderness. Extremities are free of edema. Skin is free of rash or lesions. Joints are not swollen or deformed. Judgment appears to be normal. Right IJ catheter in neck. Objective Labs 02/06/24 05:00 02/06/24 05:00 Labs: Laboratory Results - last 24 hr 02/06/24 05:00 WBC 5.3 RBC 2.58 L Hgb 8.8 L Hct 26.2 L MCV 101.3 H MCH 34.1 H MCHC 33.7 RDW 14.5 Plt Count 139 L Sodium 135 L Potassium 4.1 Chloride 117 H Carbon Dioxide 14 L BUN 15 Creatinine 0.80 Estimated GFR > 60 BUN/Creatinine Ratio 18.8 Glucose 89 Calcium 7.4 L Total Bilirubin 0.2 AST 25 ALT 12 Alkaline Phosphatase 50 Total Protein 4.5 L Albumin 2.1 L Globulin 2.4 Albumin/Globulin Ratio 0.9 L [facility] Medical History Generalized weakness Small bowel obstruction Surgical History H/O thyroidectomy Family History Mother Diabetes mellitus Heart disease Father Diabetes mellitus Heart disease Brother Myocardial infarction CVA (cerebral vascular accident) Other Hypertension Social History household members: spouse Smoking Status: Never smoker alcohol intake: former Assessment & Plan Assessment & Plan narrative: 1. Septic shock, present on admission and active. This is responded norepinephrine. She has a normal lactic acid. 2. Acute pyelonephritis. Present on admission and active. IV Rocephin as noted above and trend closely. 3. Right upper quadrant tenderness, present on admission and active. 3. Dehydration with hypovolemia. 4. Anxiety. Present on admission and active. 5. HTN, chronic PLAN: - continue IV fluids - zosyn increased to antipseudomonal dosing given prior pseudomonal infection in the past. MR abdomen without an apparent biliary cause. If persistent fever consider repeat renal imaging though no hydronephrosis or stone apparent initially. -follow cultures, currently urine with GNB. -downgraded to floor care, monitor closely off pressors. hold home losartan given above. -continue home depakote, risperidal, buspirone DVT prophylaxis will be with Lovenox Full code. Time-Based Coding :: [TOTAL MINUTES] spent with patient and on the chart (including review of chart, obtaining history, exam, reviewing outside data, placing orders, documenting exam and treatment plan, and counseling patient) on [DATE]. Quality VTE Deep Vein Thrombosis/Pulmonary Embolism Present on Admission: No
[2024-02-06] MEDS: DIVALPROEX ER 250 MG TAB 1500 MG PO (20:34)
[2024-02-06] MEDS: TRAZODONE 50 MG TABLET PO (20:35)
[2024-02-07] VITALS (10 sets, daily range): BP systolic 122–187; BP diastolic 62–82; PULSE 72–109; RESP 10–18; TEMP 36.1–38.3; O2SAT 85–100
[2024-02-07] MEDS: ACETAMINOPHEN 325 MG TABLET 650 MG PO ×2 (00:21→20:44)
[2024-02-07] MEDS: HYDROMORPHONE 1 MG INJ IV (00:23)
[2024-02-07] MEDS: PIPERACILLIN/TAZO 4.5 GM in SODIUM CHLORIDE 0.9% 100 ML IV (04:57)
[2024-02-07 05:18] LABS: Hematocrit 26.7 % (36-46); Mean Corpuscular HGB Conc 33.6 % (30-36); Mean Corpuscular Hemoglobin 34.1 PG (26-34); Mean Corpuscular Volume 101.2 fL (80-100); Platelet Count 159 X10^3/uL (150-400); Red Blood Cell Count 2.64 X10^6/uL (4.0-5.2); Red Cell Distribution Width 14.8 % (11.6-14.8); White Blood Cell Count 4.8 X10^3/uL (4.5-11.0)
[2024-02-07 05:29] LABS: Alanine Aminotransferase 13 IU/L (<35); Albumin 2.2 g/dL (3.5-5.0); Albumin Globulin Ratio 0.8 (1.0-2.8); Alkaline Phosphatase 50 U/L (38-126); Aspartate Aminotransferase 21 IU/L (14-36); BUN Creatinine Ratio 13.9 (6-22); Bilirubin Total 0.2 mg/dL (0.2-1.3); Blood Urea Nitrogen 10 mg/dL (7-17); Calcium 7.3 mg/dL (8.4-10.2); Carbon Dioxide 14 mmol/L (22-32); Chloride 118 mmol/L (98-107); Estimated Glomerular Filt Rate > 60 mL/min (>60); Globulin 2.7 g/dL (1.7-4.1); Glucose 104 mg/dL (80-110); HEMOLYSIS < 15 (0-50); Potassium 4.2 mmol/L (3.4-5.1); Sodium 135 mmol/L (137-145); Total Protein 4.9 g/dL (6.3-8.2)
[2024-02-07] MEDS: LEVOTHYROXINE 75 MCG TABLET PO (06:03)
[2024-02-07] MEDS: BUSPIRONE 5 MG TABLET 15 MG PO ×2 (09:31→20:34)
[2024-02-07] MEDS: risperiDONE 0.25 MG TABLET PO ×3 (09:31→20:34)
[2024-02-07] MEDS: SODIUM CHLORIDE 0.9% FLUSH 10 ML IV ×2 (09:32→20:35)
[2024-02-07] MEDS: HYDROCODONE/ACET 5/325 TABLET 1 TAB PO ×3 (09:42→19:39)
[2024-02-07] MEDS: cefTRIAXone 1,000 MG in SODIUM CHLORIDE 0.9% 100 ML 200 MG IV (13:09)
--- NOTE | 2024-02-07 13:20 | CM.DPNOTE ---
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 Per RN report, no new obvious CM needs identified. Per hospitalist in morning rounds, fevers better. Anticipate dc tomorrow. P: home with spouse when medically stable. CM team will fax dc summary to PCP (f [phone]) when available. CM team will follow as needed SRIDHAR Duong
--- NOTE | 2024-02-07 14:02 | PM.PN.1 ---
Subjective Subjective Interval history: 73 F admitted with septic shock, presumed urinary source. Still febrile. Biliary workup yesterday unremarkable, surgeon did not think cholecystectomy would be beneficial after discussion. Fever has improved. Has R flank pain today, intermittent in nature, worse with movement. Exam Vital Signs (past 8 hours): - 02/07/24 08:00 02/07/24 09:47 Temperature 98.5 F Pulse Rate 76 Respiratory Rate 10 L Blood Pressure 151/78 H Pulse Oximetry 100 Oxygen Delivery Method Room Air Oxygen Delivery Method Room Air Oxygen Flow Rate 0 Narrative Exam Narrative: NAD, alert and oriented, fluent speech, calm. Normocephalic skull, EOMI, anicteric sclera, symmetric pupils. Oropharynx unremarkable, no droop. Neck supple, midline trachea, no adenopathy. Lungs clear, normal rate and effort. Heart regular, no murmur gallop or rub. Abdomen is soft, non distended, mild right upper quadrant tenderness. Extremities are free of edema. Skin is free of rash or lesions. Joints are not swollen or deformed. Judgment appears to be normal. Right IJ catheter in neck. Objective Labs 02/07/24 05:00 02/07/24 05:00 Labs: Laboratory Results - last 24 hr 02/07/24 05:00 WBC 4.8 RBC 2.64 L Hgb 9.0 L Hct 26.7 L MCV 101.2 H MCH 34.1 H MCHC 33.6 RDW 14.8 Plt Count 159 Sodium 135 L Potassium 4.2 Chloride 118 H Carbon Dioxide 14 L BUN 10 Creatinine 0.72 Estimated GFR > 60 BUN/Creatinine Ratio 13.9 Glucose 104 Calcium 7.3 L Total Bilirubin 0.2 AST 21 ALT 13 Alkaline Phosphatase 50 Total Protein 4.9 L Albumin 2.2 L Globulin 2.7 Albumin/Globulin Ratio 0.8 L [facility] Medical History Generalized weakness Small bowel obstruction Surgical History H/O thyroidectomy Family History Mother Diabetes mellitus Heart disease Father Diabetes mellitus Heart disease Brother Myocardial infarction CVA (cerebral vascular accident) Other Hypertension Social History household members: spouse Smoking Status: Never smoker alcohol intake: former Assessment & Plan Assessment & Plan narrative: 1. Septic shock, present on admission and active. This is responded norepinephrine. She has a normal lactic acid. 2. Acute pyelonephritis. Present on admission and active. IV Rocephin as noted above and trend closely. 3. Right upper quadrant tenderness, present on admission and active. 3. Dehydration with hypovolemia. 4. Anxiety. Present on admission and active. 5. HTN, chronic PLAN: - will stop IV fluids today - zosyn increased to antipseudomonal dosing given yesterday with prior pseudomonal infection in the past. MR abdomen without an apparent biliary cause. If persistent fever consider repeat renal imaging though no hydronephrosis or stone apparent initially. -urine culture with sensitive E. coli, narrow to ceftriaxone. -can resume home losartan today. -continue home depakote, risperidal, buspirone -will stop IV pain medications DVT prophylaxis - Lovenox Full code. Surrogate is patient's spouse Dispo: await approx 48 hours without fever, likely discharge tomorrow home if continues to improve. Time-Based Coding :: [TOTAL MINUTES] spent with patient and on the chart (including review of chart, obtaining history, exam, reviewing outside data, placing orders, documenting exam and treatment plan, and counseling patient) on [DATE]. Quality VTE Deep Vein Thrombosis/Pulmonary Embolism Present on Admission: No
--- NOTE | 2024-02-07 14:09 | PM.CN ---
History of Present Illness Consult details Date Patient Seen: 02/07/24 Time Patient Seen: 14:09 Chief complaint: severe abd pain Narrative: 73F numerous abdominal surgeies admitted with pylenephritis. Having episodes of RUQ pain with positive Moraes's sign on exam. WBC 5, TB 0.2, AST 20, ALT 10 Abdominal US-Cholelithiasis without acute cholecystitis CT A/P -stones without acute cholecystitis MRCP-stones without acute cholecystitis. Meds Home Medications and Allergies Home Medications Medication Instructions Recorded Confirmed Type albuterol sulfate 90 mcg/actuation 2 puff INH Q4HP PRN Bronchospasm 04/17/16 02/05/24 History aerosol inhaler (Ventolin HFA) ##0 divalproex 500 mg tablet,extended 1,500 mg PO HS ##0 04/17/16 02/05/24 History release 24 hr lamotrigine 200 mg tablet 400 mg PO QDAY ##0 04/17/16 02/05/24 History (Lamictal) levothyroxine 75 mcg tablet 0.075 mg PO QDAY ##0 04/17/16 02/05/24 History (Synthroid) losartan 25 mg tablet 75 mg PO QDAY ##0 04/17/16 02/05/24 History acetaminophen 500 mg tablet 1,000 mg PO Q6HP PRN Abdominal 05/28/21 02/05/24 History (Tylenol Extra Strength) Discomfort trazodone 50 mg tablet 50 mg PO BEDTIME #90 tabs 06/06/21 02/05/24 Rx scopolamine base 1 mg over 3 days 1 patch topical Q72H #6 ea 06/20/21 02/05/24 Rx transdermal patch (Transderm-Scop) promethazine 25 mg tablet 25 mg PO TID PRN nausea and 06/27/21 02/05/24 Rx vomiting #20 tabs risperidone 0.25 mg tablet 0.25 mg PO TID 02/05/24 02/05/24 History buspirone 15 mg tablet 15 mg PO BID 02/06/24 02/06/24 History Allergies Allergy/AdvReac Type Severity Reaction Status Date / Time butorphanol Allergy Unknown Verified 06/18/21 18:33 Influenza Virus Vaccines Allergy Unknown ITCHING, Verified 06/18/21 18:33 BAD REACTION meperidine Allergy Unknown Verified 06/18/21 18:33 pneumococcal vaccine Allergy Unknown Verified 06/18/21 18:33 quetiapine Allergy Unknown Verified 06/18/21 18:33 shellfish derived Allergy Unknown Verified 06/18/21 18:33 neuroleptics AdvReac Unknown PT STATES Uncoded 09/27/17 12:31 HAD REALLY BAD REACTION, UNABLE TO STATE WHAT Exam Vital Signs (past 8 hours): - 02/07/24 08:00 02/07/24 09:47 Temperature 98.5 F Pulse Rate 76 Respiratory Rate 10 L Blood Pressure 151/78 H Pulse Oximetry 100 Oxygen Delivery Method Room Air Oxygen Delivery Method Room Air Oxygen Flow Rate 0 Narrative Exam Narrative: Gen-Elderly woman alert and oriented Abdomen-Soft, minimally tender today Objective Labs 02/07/24 05:00 02/07/24 05:00 Labs: Laboratory Results - last 24 hr 02/07/24 05:00 WBC 4.8 RBC 2.64 L Hgb 9.0 L Hct 26.7 L MCV 101.2 H MCH 34.1 H MCHC 33.6 RDW 14.8 Plt Count 159 Sodium 135 L Potassium 4.2 Chloride 118 H Carbon Dioxide 14 L BUN 10 Creatinine 0.72 Estimated GFR > 60 BUN/Creatinine Ratio 13.9 Glucose 104 Calcium 7.3 L Total Bilirubin 0.2 AST 21 ALT 13 Alkaline Phosphatase 50 Total Protein 4.9 L Albumin 2.2 L Globulin 2.7 Albumin/Globulin Ratio 0.8 L PFSH Medical History Generalized weakness Small bowel obstruction Surgical History H/O thyroidectomy Family History Mother Diabetes mellitus Heart disease Father Diabetes mellitus Heart disease Brother Myocardial infarction CVA (cerebral vascular accident) Other Hypertension Social History household members: spouse Tobacco & Substance Use Smoking Status: Never smoker alcohol intake: former Assessment & Plan Assessment and plan (1) Abdominal pain: Status: Acute Assessment & Plan narrative: 73F admitted with pyelonephritis questionable cholecystitis. Abdominal US, CT and MRCP reviewed demonstrates stones without conclusive signs of acute cholecystitis. I suspect her abdominal pain is secondary to pyleonephritis and less likely biliary in origin. Given extensive abdominal surgery history would not recommend cholecystectomy unless absolutely necessary. Time-Based Coding :: [TOTAL MINUTES] spent with patient and on the chart (including review of chart, obtaining history, exam, reviewing outside data, placing orders, documenting exam and treatment plan, and counseling patient) on [DATE].
[2024-02-07] MEDS: LOSARTAN 50 MG TABLET 75 MG PO (15:08)
[2024-02-07] MEDS: DIVALPROEX ER 250 MG TAB 1500 MG PO (20:33)
[2024-02-07] MEDS: TRAZODONE 50 MG TABLET PO (20:34)
[2024-02-07] MEDS: lamoTRIgine 100 MG TABLET 400 MG PO (20:34)
[2024-02-08] MEDS: ONDANSETRON 4 MG/2 ML INJ IV ×4 (01:43→19:56)
[2024-02-08] MEDS: HYDROCODONE/ACET 5/325 TABLET 1 TAB PO ×2 (02:03→19:56)
[2024-02-08 02:10] VITALS: BP 129/61; PULSE 75; TEMP 35.9; O2SAT 98
[2024-02-08] MEDS: LORazepam 1 MG TABLET PO (03:46)
[2024-02-08] MEDS: LEVOTHYROXINE 75 MCG TABLET PO (05:31)
[2024-02-08 05:52] LABS: Hematocrit 27.7 % (36-46); Hemoglobin 9.6 g/dL (12.0-16.0); Mean Corpuscular HGB Conc 34.7 % (30-36); Mean Corpuscular Hemoglobin 34.5 PG (26-34); Mean Corpuscular Volume 99.5 fL (80-100); Platelet Count 175 X10^3/uL (150-400); Red Blood Cell Count 2.79 X10^6/uL (4.0-5.2); Red Cell Distribution Width 14.4 % (11.6-14.8)
[2024-02-08 06:09] LABS: Alanine Aminotransferase 13 IU/L (<35); Albumin 2.4 g/dL (3.5-5.0); Albumin Globulin Ratio 0.9 (1.0-2.8); Alkaline Phosphatase 52 U/L (38-126); Aspartate Aminotransferase 17 IU/L (14-36); BUN Creatinine Ratio 11.9 (6-22); Bilirubin Total 0.2 mg/dL (0.2-1.3); Blood Urea Nitrogen 8 mg/dL (7-17); Calcium 7.9 mg/dL (8.4-10.2); Carbon Dioxide 18 mmol/L (22-32); Chloride 114 mmol/L (98-107); Estimated Glomerular Filt Rate > 60 mL/min (>60); Globulin 2.7 g/dL (1.7-4.1); Glucose 108 mg/dL (80-110); HEMOLYSIS < 15 (0-50); Potassium 3.7 mmol/L (3.4-5.1); Sodium 135 mmol/L (137-145); Total Protein 5.1 g/dL (6.3-8.2)
[2024-02-08 08:00] VITALS: BP 179/74; PULSE 72; RESP 18; TEMP 37.1; O2SAT 99
[2024-02-08] MEDS: BUDESONIDE 3 MG CAP 9 MG PO (10:33)
[2024-02-08] MEDS: LOSARTAN 50 MG TABLET 75 MG PO (10:33)
[2024-02-08] MEDS: BUSPIRONE 5 MG TABLET 15 MG PO ×2 (10:33→21:05)
[2024-02-08] MEDS: risperiDONE 0.25 MG TABLET PO ×3 (10:33→21:08)
[2024-02-08] MEDS: SODIUM CHLORIDE 0.9% FLUSH 10 ML IV ×2 (10:34→21:09)
[2024-02-08 10:54] LABS: Clostridium Difficile Tox PCR Negative for C. diff (Negative)
[2024-02-08 11:37] VITALS: TEMP 36.8
[2024-02-08 11:38] VITALS: TEMP 37.2
--- NOTE | 2024-02-08 11:42 | CM.DPNOTE ---
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 Per hospitalist in morning rounds, pt spiked a fever overnight. likely Chrons flare for not getting her home steroids, but also r/o CDiff. Anticipate dc tomorrow if no fever. P: home with spouse when medically stable. CM team will fax dc summary to PCP (f [phone]) when available. CM team will follow as needed SRIDHAR Duong
[2024-02-08] MEDS: cefTRIAXone 1,000 MG in SODIUM CHLORIDE 0.9% 100 ML 200 MG IV (13:08)
--- NOTE | 2024-02-08 14:23 | P.PN_ITS ---
Subjective Subjective Interval history: 73 F admitted with septic shock, presumed urinary source. Fever to 101 last night. Now reports she was on steroids for her crohns disease but cannot recall which. Was able to find recently prescribed budesonide which had not been on this admission. Had slight increase in her baseline stools recently. Ordered C. diff and restarted her budesonide. Exam Vital Signs (past 8 hours): - 02/08/24 08:00 02/08/24 10:44 02/08/24 11:37 Temperature 98.8 F 98.2 F Pulse Rate 72 Respiratory Rate 18 Blood Pressure 179/74 H Pulse Oximetry 99 Oxygen Delivery Method Room Air 02/08/24 11:38 Temperature 99.0 F Pulse Rate Respiratory Rate Blood Pressure Pulse Oximetry Oxygen Delivery Method Oxygen Delivery Method Room Air Oxygen Flow Rate 97 Narrative Exam Narrative: NAD, alert and oriented, fluent speech, calm. Normocephalic skull, EOMI, anicteric sclera, symmetric pupils. Oropharynx unremarkable, no droop. Neck supple, midline trachea, no adenopathy. Lungs clear, normal rate and effort. Heart regular, no murmur gallop or rub. Abdomen is soft, non distended, mild right upper quadrant tenderness. Extremities are free of edema. Skin is free of rash or lesions. Joints are not swollen or deformed. Judgment appears to be normal. Right IJ catheter in neck. Objective Labs 02/08/24 05:48 02/08/24 05:48 Labs: Laboratory Results - last 24 hr 02/08/24 02/08/24 05:48 09:51 WBC 4.0 L RBC 2.79 L Hgb 9.6 L Hct 27.7 L MCV 99.5 MCH 34.5 H MCHC 34.7 RDW 14.4 Plt Count 175 Sodium 135 L Potassium 3.7 Chloride 114 H Carbon Dioxide 18 L BUN 8 Creatinine 0.67 Estimated GFR > 60 BUN/Creatinine Ratio 11.9 Glucose 108 Calcium 7.9 L Total Bilirubin 0.2 AST 17 ALT 13 Alkaline Phosphatase 52 Total Protein 5.1 L Albumin 2.4 L Globulin 2.7 Albumin/Globulin Ratio 0.9 L C. difficile Tox (PCR) Negative for c. diff [facility] Medical History Generalized weakness Small bowel obstruction Surgical History H/O thyroidectomy Family History Mother Diabetes mellitus Heart disease Father Diabetes mellitus Heart disease Brother Myocardial infarction CVA (cerebral vascular accident) Other Hypertension Social History household members: spouse Smoking Status: Never smoker alcohol intake: former Assessment & Plan Assessment & Plan narrative: 1. Septic shock, present on admission and active. This is responded norepinephrine. She has a normal lactic acid. 2. Acute pyelonephritis. Present on admission and active. IV Rocephin as noted above and trend closely. 3. Right upper quadrant tenderness, present on admission and active. 3. Dehydration with hypovolemia. 4. Anxiety. Present on admission and active. 5. HTN, chronic 6. Crohn's disease. PLAN: - continue ceftriaxone for presumed pyelonephritis. - recurrent fever may be due to crohn's disease. Will check to rule out c. diff. Will restart budesonide as well. -continue home losartan today. -continue home depakote, risperidal, buspirone -have stopped IV pain medications DVT prophylaxis - Lovenox Full code. Surrogate is patient's spouse Dispo: possible discharge tomorrow if no recurrent fever. Discharge home on PO antibiotics. Time-Based Coding :: [TOTAL MINUTES] spent with patient and on the chart (including review of chart, obtaining history, exam, reviewing outside data, placing orders, documenting exam and treatment plan, and counseling patient) on [DATE]. Quality VTE Deep Vein Thrombosis/Pulmonary Embolism Present on Admission: No
[2024-02-08 16:00] VITALS: BP 167/77; PULSE 90; RESP 18; TEMP 37.6; O2SAT 98
--- NOTE | 2024-02-08 16:57 | PC.NURSE ---
When patient was in the bathroom, PCT was straightening patients bed and found a ziplock bag with a colace and benadryl loose in it. fast food shift lead nurse had previously found a colace and benadryl in her bed overnight. Educated patient that taking medications not supplied by hospital is a safety issue. Provider and coordinator made aware of benadryl and colace found.
[2024-02-08 20:00] VITALS: BP 170/77; PULSE 88; RESP 18; TEMP 37.1; O2SAT 96
[2024-02-08] MEDS: DIVALPROEX ER 250 MG TAB 1500 MG PO (21:06)
[2024-02-08] MEDS: lamoTRIgine 100 MG TABLET 400 MG PO (21:07)
[2024-02-08] MEDS: TRAZODONE 50 MG TABLET 100 MG PO (21:09)
[2024-02-08] MEDS: SCOPOLAMINE 1 PATCH TOP (22:10)
[2024-02-09] MEDS: LORazepam 1 MG TABLET PO (00:04)
[2024-02-09] MEDS: ACETAMINOPHEN 325 MG TABLET 650 MG PO (00:04)
[2024-02-09] MEDS: ONDANSETRON 4 MG/2 ML INJ IV (03:41)
[2024-02-09 04:00] VITALS: BP 142/65; PULSE 86; RESP 17; TEMP 36.2; O2SAT 97
[2024-02-09] MEDS: LEVOTHYROXINE 75 MCG TABLET PO (06:52)
[2024-02-09] MEDS: HYDROCODONE/ACET 5/325 TABLET 1 TAB PO ×2 (08:54→13:39)
--- NOTE | 2024-02-09 08:59 | CM.DPNOTE ---
Addendum entered by SRIDHAR Duong 02/09/24 15:05: PLANT EQUIPMENT ENGINEER faxed signed dc sum to PCP office. SL Original Note: DCP Note PLANT EQUIPMENT ENGINEER reviewed EMR. Per hospitalist, plan to dc pt home today. PLANT EQUIPMENT ENGINEER entered room and introduced self and role. pt resting in bed. Reports plan to dc home with spouse to transport, cannot get here until evening and has no other ride available. Pt able to mobilized around room with walker indep. PLANT EQUIPMENT ENGINEER answered HH questions to best of ability. Pt requested this PLANT EQUIPMENT ENGINEER fax clinicals to her PCP office after she leaves. This PLANT EQUIPMENT ENGINEER agrees. PCP Judy Mccoy [facility] to fax [phone] P: dc home with spouse support today. PLANT EQUIPMENT ENGINEER will fax dc sum to PCP when available. CM team will continue to follow as needed SRIDHAR Duong
[2024-02-09 09:00] VITALS: PULSE 69; TEMP 36.3; O2SAT 99
[2024-02-09] MEDS: BUDESONIDE 3 MG CAP 9 MG PO (09:02)
[2024-02-09] MEDS: BUSPIRONE 5 MG TABLET 15 MG PO (09:03)
[2024-02-09 09:04] VITALS: BP 132/63; PULSE 86
[2024-02-09] MEDS: LOSARTAN 50 MG TABLET 75 MG PO (09:04)
[2024-02-09] MEDS: risperiDONE 0.25 MG TABLET PO ×2 (09:04→14:41)
--- NOTE | 2024-02-09 10:11 | PC.NURSE ---
pt for discharge today with , but he cannot be here to get her until 1900, and she denies having another source that could come get her as [place] of [place]; central line removed and dressing applied; pt to shower and get dressed while waiting on
--- NOTE | 2024-02-09 13:05 | PM.DS.1 ---
History of Present Illness History of Present Illness Date Patient Seen: 02/09/24 Time Patient Seen: 07:50 Date of Onset of Symptoms: 02/05/24 Chief complaint: severe abd pain Discharge Providers Provider Date of admission: 02/05/24 01:34 Discharge Date: 02/09/24 Primary care physician: Judy Davison MD Consults: 02/05/24 05:16 Consult to Pharmacy Routine Comment: dose rocephin 02/06/24 11:21 Consult to General Surgery Routine Comment: Consulting Provider: Angelito Spears Reason for consultation: ? cholecystitis Discharge provider: Tanmay Morris MD Summary Hospital Course Discharge Diagnosis: 1. Septic shock due to 2. 2. Acute pyelonephritis due to E coli. 3. Right upper quadrant tenderness, present on admission and active, due to 2. 3. Dehydration with hypovolemia, resolved 4. Anxiety. 5. Hypertension. 6. Crohn's disease. Hospital Course: The patient was admitted to the ICU and administered IV fluid resuscitation, IV norepinephrine and broad-spectrum IV antibiotics. She cultured E coli sensitive to all antibiotics except ampicillin in urine, with blood cultures negative after 4 days. It was noted that she had recently had a flare of her Crohn's disease the month prior which was felt to be the precipitating cause of her urinary tract infection. Her usual antihypertensives were held though resumed at the time of discharge. she was administered DVT prophylaxis with Lovenox. General surgery was consulted given abdominal pain and gallstones, though did not feel that her symptoms were due to a gallbladder etiology, rather due to pyelonephritis. She was feeling significantly better by her 3rd hospital day and interested in discharge home. No other issues arose Status at Discharge Cognitive/behavioral status at discharge: oriented Functional status at discharge: independent ambulation Overall status at discharge: patient is back to baseline Time Spent with Patient Time spent: Greater than 30 minutes Exam Vital Signs (past 8 hours): - 02/09/24 07:00 02/09/24 09:00 02/09/24 09:04 Temperature 97.4 F L Pulse Rate 69 86 Blood Pressure 132/63 Pulse Oximetry 99 Oxygen Delivery Method Room Air Oxygen Delivery Method Room Air Oxygen Flow Rate 0 Narrative Exam Narrative: NAD, alert and oriented, fluent speech, calm. Normocephalic skull, EOMI, anicteric sclera, symmetric pupils. Oropharynx unremarkable, no droop. Neck supple, midline trachea, no adenopathy. Lungs clear, normal rate and effort. Heart regular, no murmur gallop or rub. Abdomen is soft, non distended, nontender. Extremities are free of edema. Skin is free of rash or lesions. Joints are not swollen or deformed. Judgment appears to be normal. Right IJ catheter in neck, site appears clean, removed today. Objective Imaging Multiple:: Radiologist's impression: Chest x-ray 02/05/2024: Right IJ central venous catheter tip projects over the low SVC. No pneumothorax. Abdomen ultrasound 02/05/2024: 1. Cholelithiasis without acute cholecystitis. 2. Minimally dilated CBD 8.0 mm. Consider follow-up MRCP to assess for choledocholithiasis Abdomen MRI 02/06/2024: Exam is somewhat limited as the patient was unable to complete all sequences. 1. No choledocholithiasis. Gallstones. 2. No biliary or pancreatic ductal dilatation. 3. Small bilateral pleural effusions. Labs 02/08/24 05:48 02/08/24 05:48 [facility] Medical History Generalized weakness Small bowel obstruction Surgical History H/O thyroidectomy Family History Mother Diabetes mellitus Heart disease Father Diabetes mellitus Heart disease Brother Myocardial infarction CVA (cerebral vascular accident) Other Hypertension Social History household members: spouse Smoking Status: Never smoker alcohol intake: former Discharge Plan Discharge Plan Patient Disposition: Home Discharge orders & Medications Prescriptions: New budesonide 3 mg Capsule,Delayed,Extend.Release 9 mg PO DAILY Qty: 1 0RF cephalexin 500 mg capsule 500 mg PO TID Qty: 30 0RF Continued losartan 25 MG tablet 75 mg PO QDAY Qty: 0 levothyroxine [Synthroid] 75 MCG tablet 0.075 mg PO QDAY Qty: 0 albuterol sulfate [Ventolin HFA] 90 MCG/PUFF HFA aerosol inhaler 2 puff INH Q4HP PRN (Reason: Bronchospasm) Qty: 0 lamotrigine [Lamictal] 200 MG tablet 400 mg PO QDAY Qty: 0 divalproex 500 MG tablet extended release 24 hr 1,500 mg PO HS Qty: 0 acetaminophen [Tylenol Extra Strength] 500 MG tablet 1,000 mg PO Q6HP PRN (Reason: Abdominal Discomfort) trazodone 50 mg Tablet 50 mg PO BEDTIME Qty: 90 0RF risperidone 0.25 mg tablet 0.25 mg PO TID buspirone 15 mg tablet 15 mg PO BID scopolamine base [Transderm-Scop] 1 mg over 3 days Patch 3 Day 1 patch topical Q72H Qty: 6 0RF promethazine 25 mg tablet 25 mg PO TID PRN (Reason: nausea and vomiting) Qty: 20 0RF Follow up/Referrals: Judy Davison MD [Primary Care Provider] - Diet/Activity/Treatments Diet: Regular Skin/Wound/Dressing Care Report to your healthcare provider any signs of infection, such as:: chills, fever, night sweats and increased pain Visit Report/Discharge Packet Stand Alone Forms: Patient Portal/API Discharge Data Primary Care Provider: Judy Davison Quality VTE Deep Vein Thrombosis/Pulmonary Embolism Present on Admission: No MIPS - Admit I confirm the patient?s Advance Care Plan is present, Code status is documented, Surrogate decision maker is in patient?s record [If Yes, STOP here]: Yes MIPS - Meds 'Current medications' to include all prescriptions, [id number] products, herbals, cannabis/cannabidiol products, and vitamin/mineral/dietary (nutritional) supplements. I have utilized all available resources to obtain, update, or review the patient?s current medications. [If Yes, STOP here]: Yes MIPS - DC The patient has a history of heart transplant or Left Ventricular Assist Device (LVAD). If yes, STOP here.: No The patient has current or prior documentation of left ventricular ejection fraction (LVEF) less than or equal to 40%, or moderate or severely depressed left ventricular systolic function.: No A. The patient was prescribed or already taking an Angiotensin-Converting Enzyme (TUYET) Inhibitor, or Angiotensin Receptor Fredrick (ARB).: Yes B. The patient was prescribed or already taking a beta-fredrick. [If Yes to Both A & B, STOP here]: No Patient not prescribed/taking TUYET or ARB, no reason given.: No Patient not prescribed/taking beta-fredrick, no reason given.: No PROFEE Charge Codes Discharge inpatient/observation: [id number]
--- NOTE | 2024-02-09 18:36 | PC.NURSE ---
pt waiting on to pick her up; he is scheduled to be here at 1915, at which time she will be escorted to private vehicle via w/c; belongings are all gathered and ready to go; central line was removed, pt showered and dressed; written and verbal discharge instructions to pt and she verbalized understanding
== END 2024-02-09 19:13 | disposition home or self-care (01) | DRG 871 ==
LOC: ED 20:27 → AC 02-05 01:35 → ICU 02-05 01:47
PROVIDERS: Hospitalist; Internal Medicine; Admitting Provider Internal Medicine; Emergency Provider Emergency Medicine; Family Provider Internal Medicine; PCP Internal Medicine; Referring Provider Emergency Medicine; Visit Provider Internal Medicine
DX: A41.51 Sepsis due to Escherichia coli [E. coli] (principal); R65.21 Severe sepsis with septic shock; N10 Acute pyelonephritis; K50.90 Crohn's disease, unspecified, without complications; E86.0 Dehydration; E86.1 Hypovolemia; F41.9 Anxiety disorder, unspecified; I10 Essential (primary) hypertension; N20.0 Calculus of kidney; B96.20 Unspecified Escherichia coli [E. coli] as the cause of diseases classified elsewhere; Z86.19 Personal history of other infectious and parasitic diseases
CPT/HCPCS: 36415; 36592; 71045; 74177; 74181; 76705; 80053; 81003; 81015; 82550; 83605; 84145; 84484; 85025; 85027; 87040; 87077; 87086; 87186; 87493; 87507; 87633; 87797; 93005; 94640; 96361; 96365; 96366; 96367; 96375; 96376; 99232; 99284; 99291; A9270; J0136; J0696; J1170; J1885; J2405; J2543; J7613; Q9967

== ENCOUNTER 2024-02-25 15:08 | Emergency (ER) | payer MEDICARE, OTHER, SELFPAY ==
[2024-02-05 04:09] VITALS: BMI 19.1
[2024-02-25 15:14] VITALS: BP 132/71; PULSE 74; RESP 16; TEMP 36.4; O2SAT 96; BMI 23.4
--- NOTE | 2024-02-25 16:10 | ED_ITS ---
HPI - Female Genitourinary <Loc MarreroADOLPH talamantes - Last Filed: 02/25/24 16:36> General Chief complaint: Urogenital-Female Stated complaint: bladder infection, hx toxic shock Time Seen by Provider: 02/25/24 16:06 Source: patient Mode of arrival: Ambulatory History of Present Illness HPI Narrative: 73-year-old female, with history of Crohn's and J-pouch, presents to the emergency department with complaints of of a UTI and yeast infection. Patient was previously admitted to the intensive care unit for urosepsis and was discharged with a course of cephalexin. Patient reports that symptoms returned last Monday and went into the [facility], was diagnosed with another UTI, and treated with Macrobid. Patient is concerned because she has not sure if she is on the right antibiotic, but has not heard back regarding culture results. Patient also endorses a yeast infection but was told that she can not have Diflucan because ?she would ?. Review of medications shows contraindications secondary to QT prolongation. Related Data Home Medications Medication Instructions Recorded Confirmed albuterol sulfate 90 mcg/actuation 2 puff INH Q4HP PRN Bronchospasm 04/17/16 02/05/24 aerosol inhaler (Ventolin HFA) ##0 divalproex 500 mg tablet,extended 1,500 mg PO HS ##0 04/17/16 02/05/24 release 24 hr lamotrigine 200 mg tablet 400 mg PO QDAY ##0 04/17/16 02/05/24 (Lamictal) levothyroxine 75 mcg tablet 0.075 mg PO QDAY ##0 04/17/16 02/05/24 (Synthroid) losartan 25 mg tablet 75 mg PO QDAY ##0 04/17/16 02/05/24 acetaminophen 500 mg tablet 1,000 mg PO Q6HP PRN Abdominal 05/28/21 02/05/24 (Tylenol Extra Strength) Discomfort risperidone 0.25 mg tablet 0.25 mg PO TID 02/05/24 02/05/24 buspirone 15 mg tablet 15 mg PO BID 02/06/24 02/06/24 Previous Rx's Medication Instructions Recorded trazodone 50 mg tablet 50 mg PO BEDTIME #90 tabs 06/06/21 scopolamine base 1 mg over 3 days 1 patch topical Q72H #6 ea 06/20/21 transdermal patch (Transderm-Scop) promethazine 25 mg tablet 25 mg PO TID PRN nausea and 06/27/21 vomiting #20 tabs budesonide 3 mg 9 mg (3 x 3 mg) PO DAILY #1 ea 02/09/24 capsule,delayed,extended release cephalexin 500 mg capsule 500 mg PO TID #30 caps 02/09/24 hydrocodone 5 mg-acetaminophen 325 1 tab PO Q4HR PRN Pain, Moderate 02/09/24 mg tablet (4-6) #6 tabs Allergies Allergy/AdvReac Type Severity Reaction Status Date / Time butorphanol Allergy Unknown Verified 02/25/24 15:14 Influenza Virus Vaccines Allergy Unknown ITCHING, Verified 02/25/24 15:14 BAD REACTION meperidine Allergy Unknown Verified 02/25/24 15:14 pneumococcal vaccine Allergy Unknown Verified 02/25/24 15:14 quetiapine Allergy Unknown Verified 02/25/24 15:14 shellfish derived Allergy Unknown Verified 02/25/24 15:14 neuroleptics AdvReac Unknown PT STATES Uncoded 09/27/17 12:31 HAD REALLY BAD REACTION, UNABLE TO STATE WHAT Review of Systems <ADOLPH Waters - Last Filed: 02/25/24 16:36> Review of Systems Narrative: Narrative: See HPI. GENERAL: Denies chills,fever, sweats. HEENT: Denies sinus pain, ear pain, sore throat, difficulty swallowing, dizziness. RESPIRATORY: Denies dyspnea, cough, wheezing, sputum. CARDIOVASCULAR: Denies chest pain, palpitations, edema. GASTROINTESTINAL: Denies out of the ordinary nausea, vomiting, abdominal pain, diarrhea, constipation. : Denies dysuria, frequency, incontinence, hematuria, urinary retention, flank pain. MSK: Denies weakness, joint pain, or bony pain. Endorses low back pain. SKIN: Denies rash, skin lesions, or pruritis. NEUROLOGIC: Denies weakness, dizziness, headache, numbness, confusion. PSYCHIATRIC: No concerning psychosocial issues. Patient History <ADOLPH Waters - Last Filed: 02/25/24 16:36> Medical History Generalized weakness Small bowel obstruction Surgical History H/O thyroidectomy Family History Mother Diabetes mellitus Heart disease Father Diabetes mellitus Heart disease Brother Myocardial infarction CVA (cerebral vascular accident) Other Hypertension alcohol intake frequency: 0-2 drinks per day Last Alcoholic Drink: does not use Substance Use Type: does not use Exam <ADOLPH Waters - Last Filed: 02/25/24 16:36> Narrative Exam Narrative: Exam Narrative: GENERAL: This is a well-nourished, well-developed patient, in no acute distress. HEAD: Atraumatic. Normocephalic. EYES: Pupils equal round and reactive. Extraocular motions intact. No scleral icterus, injection or drainage. ENT: Nose without bleeding, purulent drainage. Airway patent. NECK: Trachea midline. CARDIOVASCULAR: Regular rate and rhythm without murmurs, peripheral pulses intact, cap refill <2 sec. RESPIRATORY: Breath sounds equal and clear bilaterally. No wheezes, rales, or rhonchi. No cough. No increased respiratory effort. No accessory muscle use. MSK: Moves all extremities. Normal range of motion, no clubbing or edema. Neurovascularly intact. NEURO: A&O x 3. SKIN: Warm, dry, no rashes or lesions noted. Initial Vital Signs Initial Vital Signs: Vital Signs Temperature 97.6 F 02/25/24 15:14 Pulse Rate 74 02/25/24 15:14 Respiratory Rate 16 02/25/24 15:14 Blood Pressure 132/71 02/25/24 15:14 Pulse Oximetry 96 02/25/24 15:14 Oxygen Delivery Method Room Air 02/25/24 15:14 Reviewed <Benny Skinner MD - Last Filed: 02/25/24 21:47> Initial Vital Signs Initial Vital Signs: Vital Signs Temperature 97.6 F 02/25/24 15:14 Pulse Rate 74 02/25/24 15:14 Respiratory Rate 16 02/25/24 15:14 Blood Pressure 132/71 02/25/24 15:14 Pulse Oximetry 96 02/25/24 15:14 Oxygen Delivery Method Room Air 02/25/24 15:14 Course <ADOLPH Waters - Last Filed: 02/25/24 16:36> Vital Signs Vital signs: Vital Signs - 8 hr 02/25/24 15:14 02/25/24 16:35 Temperature 97.6 F 98.0 F Pulse Rate 74 71 Respiratory Rate 16 16 Blood Pressure 132/71 132/64 Pulse Oximetry 96 99 Oxygen Delivery Method Room Air Room Air <Benny Skinner MD - Last Filed: 02/25/24 21:47> Vital Signs Vital signs: Vital Signs - 8 hr 02/25/24 15:14 02/25/24 16:35 Temperature 97.6 F 98.0 F Pulse Rate 74 71 Respiratory Rate 16 16 Blood Pressure 132/71 132/64 Pulse Oximetry 96 99 Oxygen Delivery Method Room Air Room Air MDM - Female Genitourinary <ADOLPH Waters - Last Filed: 02/25/24 16:36> Differential Diagnosis Differential diagnosis: Likely urinary tract infection and other (Candidiasis) MDM Narrative Medical decision making narrative: 73-year-old female presents emergency department with concerns over UTI and yeast infection. Assessment was encouraging and reassurance given to patient and spouse. Patient was diagnosed with UTI at a nearby clinic 2 days ago and prescribed Macrobid. Patient is concerned about being on the right antibiotics secondary to a urosepsis admission last month. Informed patient that the urine cultures sensitivities should identify whether the antibiotic is adequate or not. Recommended patient follow-up with clinic tomorrow if they have not heard back from them, but to continue with the antibiotics as prescribed. In regards to yeast infection, multiple medication contraindications secondary to QT prolongation, and therefore recommend continued use of topical anti yeast cream. Patient has an appointment with her family doctor in the next 48 hours and will follow up at that time. Patient and spouse verbalized understanding and were agreeable with course of action. Discharge Plan Departure Patient Disposition: Home Clinical Impression: UTI (urinary tract infection) Qualifiers: Urinary tract infection type: site unspecified Hematuria presence: with hematuria Qualified Code(s): N39.0 - Urinary tract infection, site not specified Instructions: DI for Urinary Tract Infection (UTI) Activity Restrictions/Additional Instructions: *You have been diagnosed with a urinary tract infection. I am glad to hear that you went in to be seen for your urinary tract infection and was prescribed Macrobid. As we discussed, you may want to contact the facility for the culture results if you do not hear anything by noon tomorrow, or if you feel like your symptoms are not improving. Please continue to drink plenty of water, take the antibiotics as prescribed and use the [id number] topical medication for yeast infection. Please follow-up with your family doctor as previously scheduled. *What to do: *Please continue to take your regular medications as directed. [ ] New medication prescriptions sent to your pharmacy: [ ] [ ] New medication written as a paper prescription [x ] No new medications given *Please follow up with your primary care provider in 2-3 days, call for an appointment. Let them know you were seen in the Emergency Department and that we ask that you be seen in follow up. We will electronically transmit a record of kobi monika's note if your PCP is in our system *If you do not have a primary care provider please contact the [facility] Resource line at [phone]. They will ask some questions about your medical history and help get you set up with a doctor in the community. ? Return to ER if you should have any new, worsening or concerning symptoms, such as worsening pain, severe headache, confusion, chest pain, difficulty breathing, fever greater than 101 F, shaking chills, persistent vomiting to the point that you cannot drink fluids, or other new or worsening symptoms. Prescriptions: No Action losartan 25 MG tablet 75 mg PO QDAY Qty: 0 levothyroxine [Synthroid] 75 MCG tablet 0.075 mg PO QDAY Qty: 0 albuterol sulfate [Ventolin HFA] 90 MCG/PUFF HFA aerosol inhaler 2 puff INH Q4HP PRN (Reason: Bronchospasm) Qty: 0 lamotrigine [Lamictal] 200 MG tablet 400 mg PO QDAY Qty: 0 divalproex 500 MG tablet extended release 24 hr 1,500 mg PO HS Qty: 0 acetaminophen [Tylenol Extra Strength] 500 MG tablet 1,000 mg PO Q6HP PRN (Reason: Abdominal Discomfort) trazodone 50 mg Tablet 50 mg PO BEDTIME Qty: 90 0RF risperidone 0.25 mg tablet 0.25 mg PO TID buspirone 15 mg tablet 15 mg PO BID budesonide 3 mg Capsule,Delayed,Extend.Release 9 mg PO DAILY Qty: 1 0RF cephalexin 500 mg capsule 500 mg PO TID Qty: 30 0RF hydrocodone-acetaminophen 5-325 mg Tablet 1 tab PO Q4HR PRN (Reason: Pain, Moderate (4-6)) Qty: 6 0RF scopolamine base [Transderm-Scop] 1 mg over 3 days Patch 3 Day 1 patch topical Q72H Qty: 6 0RF promethazine 25 mg tablet 25 mg PO TID PRN (Reason: nausea and vomiting) Qty: 20 0RF Referrals: Judy Davison MD [Primary Care Provider] - Stand Alone Forms: Patient Portal/API ED Sign-out <Benny Skinner MD - Last Filed: 02/25/24 21:47> Cosign ED Attending Cosfaviolaature Attestation: I was immediately available in the department for consultation. This documentation has been reviewed and I agree with assessment and plan. Supervised by Benny Skinner MD
[2024-02-25 16:35] VITALS: BP 132/64; PULSE 71; RESP 16; TEMP 36.7; O2SAT 99
== END 2024-02-25 16:35 | disposition home or self-care (01) ==
PROVIDERS: Emergency Provider Registered Nurse; Family Provider Internal Medicine; PCP Internal Medicine
DX: N39.0 Urinary tract infection, site not specified (principal)
CPT/HCPCS: 99281; 99282

== ENCOUNTER 2024-03-20 12:13 | Emergency (ER) | payer MEDICARE, OTHER, SELFPAY ==
[2024-02-05 04:09] VITALS: BMI 19.1
[2024-03-20] VITALS (16 sets, daily range): BP systolic 116–143; BP diastolic 60–79; PULSE 67–81; RESP 16; TEMP 36.6; O2SAT 91–100; BMI 22.4
[2024-03-20 12:43] LABS: Urine Volume 10mL (spun)
[2024-03-20 12:45] LABS: Bacteria Urine None Seen; Culture Indicated Urine Specimen Cultured; RBC Urine None Seen (0-5/HPF); Squamous Epithelial Cell Urine 1-5 /HPF (0-5/HPF); WBC Urine 10-30/HPF (0-5/HPF)
--- NOTE | 2024-03-20 13:14 | ED.ABDPAIN ---
HPI - Abdominal Pain General Chief Complaint: Urogenital-Female Stated Complaint: Kidney Infection, Nausea, No appetite Time Seen by Provider: 03/20/24 13:12 Source: patient Mode of arrival: Ambulatory History of Present Illness HPI narrative: Patient is a 73-year-old female with history of Crohn's status post colectomy several years ago, bipolar, hypothyroidism, hypertension, comes into the ED from home for evaluation of abdominal pain right-sided flank pain ongoing persistent for the past few days. States that she was recently treated for pyelonephritis/dose of antibiotics was a few days ago states that her symptoms did improve then but is now back. She endorses diffuse abdominal pain nausea no vomiting. Also complaining of persistent right flank pain. She denies any other symptoms at this time. Related Data Home Medications Medication Instructions Recorded Confirmed albuterol sulfate 90 mcg/actuation 2 puff INH Q4HP PRN Bronchospasm 04/17/16 02/05/24 aerosol inhaler (Ventolin HFA) ##0 divalproex 500 mg tablet,extended 1,500 mg PO HS ##0 04/17/16 02/05/24 release 24 hr lamotrigine 200 mg tablet 400 mg PO QDAY ##0 04/17/16 02/05/24 (Lamictal) levothyroxine 75 mcg tablet 0.075 mg PO QDAY ##0 04/17/16 02/05/24 (Synthroid) losartan 25 mg tablet 75 mg PO QDAY ##0 04/17/16 02/05/24 acetaminophen 500 mg tablet 1,000 mg PO Q6HP PRN Abdominal 05/28/21 02/05/24 (Tylenol Extra Strength) Discomfort risperidone 0.25 mg tablet 0.25 mg PO TID 02/05/24 02/05/24 buspirone 15 mg tablet 15 mg PO BID 02/06/24 02/06/24 Previous Rx's Medication Instructions Recorded trazodone 50 mg tablet 50 mg PO BEDTIME #90 tabs 06/06/21 scopolamine base 1 mg over 3 days 1 patch topical Q72H #6 ea 06/20/21 transdermal patch (Transderm-Scop) promethazine 25 mg tablet 25 mg PO TID PRN nausea and 06/27/21 vomiting #20 tabs budesonide 3 mg 9 mg (3 x 3 mg) PO DAILY #1 ea 02/09/24 capsule,delayed,extended release cephalexin 500 mg capsule 500 mg PO TID #30 caps 02/09/24 hydrocodone 5 mg-acetaminophen 325 1 tab PO Q4HR PRN Pain, Moderate 02/09/24 mg tablet (4-6) #6 tabs cephalexin 500 mg capsule 500 mg PO TID 7 days #21 caps 03/20/24 ondansetron 4 mg disintegrating 4 mg PO Q8H PRN nausea and 03/20/24 tablet vomiting 4 days #12 tabs Allergies Allergy/AdvReac Type Severity Reaction Status Date / Time butorphanol Allergy Unknown Verified 03/20/24 12:24 Influenza Virus Vaccines Allergy Unknown ITCHING, Verified 03/20/24 12:24 BAD REACTION meperidine Allergy Unknown Verified 03/20/24 12:24 pneumococcal vaccine Allergy Unknown Verified 03/20/24 12:24 quetiapine Allergy Unknown Verified 03/20/24 12:24 shellfish derived Allergy Unknown Verified 03/20/24 12:24 neuroleptics AdvReac Unknown PT STATES Uncoded 03/20/24 12:24 HAD REALLY BAD REACTION, UNABLE TO STATE WHAT Review of Systems Review of Systems Narrative: General: Denies fever, chills, weight loss HEENT: Denies headache, eye drainage, eye irritation, head trauma, sore throat, voice change Cardiovascular: Denies any chest pain, palpitations, shortness of breath, tachycardia Respiratory: Denies any shortness of breath, cough, wheeze, stridor GI/: Positive for abdominal pain, nausea, denies vomiting diarrhea, bright red blood per rectum, melanotic stools, urinary frequency, urinary retention, dysuria, hematuria, positive right flank pain MSK: Denies any joint pain, muscle pains, swelling Skin: Denies any rashes, lesions, discoloration Neuro: Denies any headache, lightheadedness, dizziness, fainting, weakness Psych: Denies SI/HI Patient History Medical History Generalized weakness Small bowel obstruction Surgical History H/O thyroidectomy Family History Mother Diabetes mellitus Heart disease Father Diabetes mellitus Heart disease Brother Myocardial infarction CVA (cerebral vascular accident) Other Hypertension Social History household members: spouse Smoking Status: Never smoker alcohol intake: former Smoking Status: Never smoker alcohol intake frequency: 0-2 drinks per day Substance Use Type: does not use Exam Narrative Exam Narrative: General: Cooperative, comfortable, well-developed, not in acute distress HEENT: Normocephalic, atraumatic, PERRLA, normal sclera, eyelids normal, Neck: Active full range of motion, atraumatic Chest: Normal to inspection, negative crepitus, no overlying erythema ecchymosis Respiratory: Normal respiratory effort, not in acute respiratory distress, clear to auscultation bilaterally negative cough, wheeze, tachypnea, rhonchi, rales Cardiology: Regular rate rhythm negative gallop, murmur, rubs GI/: Normal to inspection, soft, nonrigid, no tenderness to palpation, exam deferred, positive right CVA tenderness MSK: Full range of active range of motion of all 4 extremities, atraumatic Skin: No rashes lesions noted Neuro: Alert awake oriented x3, moves all 4 extremities spontaneously, cranial nerves intact, able to answer all questions appropriately follows commands appropriately Psych: Cooperative, negative suicidal or homicidal ideations Initial Vital Signs Initial Vital Signs: Vital Signs Temperature 97.8 F 03/20/24 12:21 Pulse Rate 81 03/20/24 12:21 Respiratory Rate 16 03/20/24 12:21 Blood Pressure 138/78 03/20/24 12:21 Pulse Oximetry 98 03/20/24 12:21 Oxygen Delivery Method Room Air 03/20/24 12:21 Course Orders Ordered: ED Orders 03/20/24 12:21 Urine Culture Stat Urine Microscopic Stat 03/20/24 12:25 Comprehensive Metabolic Panel Stat Lipase Stat EKG-12 Lead Stat 03/20/24 13:13 CT abdomen pelvis w con Stat 03/20/24 13:21 Complete Blood Count AUTO DIFF Stat 03/20/24 13:52 GI Panel (Film Array) Stat Ondansetron HCl (Ondansetron 4 Mg/2 Ml Inj) 4 mg IV NOW PRN PRN Reason: Nausea And Vomiting Ondansetron HCl (Ondansetron 4 Mg Odt) 4 mg PO NOW PRN PRN Reason: Nausea And Vomiting Discontinued Medications Cephalexin HCl (Cephalexin 250 Mg Capsule) 500 mg PO NOW ONE Stop: 03/20/24 17:52 Sodium Chloride (Normal Saline 0.9%) 1,000 mls @ 1,000 mls/hr IV BOLUS ONE Stop: 03/20/24 14:12 Last Infusion: 03/20/24 15:06 Dose: Infused Documented By: Admin: 03/20/24 13:34 Dose: 1,000 mls/hr Documented By: RAFAEL Ketorolac Tromethamine (Ketorolac 30 Mg/Ml Vial) 30 mg IV NOW ONE Stop: 03/20/24 17:52 Morphine Sulfate (Morphine 4 Mg/Ml Inj) 4 mg IV NOW ONE Stop: 03/20/24 13:14 Last Admin: 03/20/24 13:35 Dose: 4 mg Documented By: RAFAEL Ondansetron HCl (Ondansetron 4 Mg/2 Ml Inj) 4 mg IV NOW ONE Stop: 03/20/24 17:52 Vital Signs Vital signs: Vital Signs - 8 hr 03/20/24 12:21 03/20/24 13:51 03/20/24 14:00 Temperature 97.8 F Pulse Rate 81 75 71 Respiratory Rate 16 Blood Pressure 138/78 Pulse Oximetry 98 94 91 Oxygen Delivery Method Room Air 03/20/24 14:43 03/20/24 14:44 03/20/24 14:44 Temperature Pulse Rate 70 70 Respiratory Rate Blood Pressure 123/63 Pulse Oximetry 94 98 Oxygen Delivery Method 03/20/24 15:00 03/20/24 15:01 03/20/24 15:01 Temperature Pulse Rate 70 70 Respiratory Rate Blood Pressure 116/71 Pulse Oximetry 98 99 Oxygen Delivery Method 03/20/24 15:30 03/20/24 16:00 03/20/24 16:01 Temperature Pulse Rate 74 74 73 Respiratory Rate Blood Pressure Pulse Oximetry 100 94 99 Oxygen Delivery Method 03/20/24 16:01 03/20/24 16:30 03/20/24 16:31 Temperature Pulse Rate 69 70 Respiratory Rate Blood Pressure 143/79 H Pulse Oximetry 99 98 Oxygen Delivery Method 03/20/24 16:31 Temperature Pulse Rate Respiratory Rate Blood Pressure 132/68 Pulse Oximetry Oxygen Delivery Method MDM - Abdominal Pain Differential Diagnosis Differential diagnosis: Likely abdominal pain, constipation, diverticulitis, gastroenteritis, small bowel obstruction and other (Pyelonephritis, urinary tract infection, electrolyte abnormality) Lab Data Attestation: I reviewed the patient's lab results. 03/20/24 13:21 03/20/24 12:25 Labs: Lab Results 03/20/24 03/20/24 03/20/24 Range/Units 12:21 12:25 13:21 WBC 4.7 (4.5-11.0) X10^3/uL RBC 3.59 L (4.0-5.2) X10^6/uL Hgb 12.1 (12.0-16.0) g/dL Hct 35.5 L (36-46) % MCV 98.9 (80-100) fL MCH 33.7 (26-34) PG MCHC 34.1 (30-36) % RDW 13.5 (11.6-14.8) % Plt Count 185 (150-400) X10^3/uL Neut % (Auto) 55.1 (50-75) % Lymph % (Auto) 37.2 (25-40) % Stephenson % (Auto) 6.6 (3-14) % Eos % (Auto) 0.7 L (2-4) % Baso % (Auto) 0.4 (0-2) % Neut # (Auto) 2600 (4781-9572) /uL Lymph # (Auto) 1700 (8242-3384) /uL Stephenson # (Auto) 300 (0-900) /uL Eos # (Auto) 0 (0-450) /uL Baso # (Auto) 0 (0-100) /uL Sodium 130 L (137-145) mmol/L Potassium 4.3 (3.4-5.1) mmol/L Chloride 109 H (98-107) mmol/L Carbon Dioxide 15 L (22-32) mmol/L BUN 36 H (7-17) mg/dL Creatinine 1.09 H (0.52-1.04) mg/dL Estimated GFR 54 L (>60) mL/min BUN/Creatinine Ratio 33.0 H (6-22) Glucose 104 (80-110) mg/dL Calcium 8.9 (8.4-10.2) mg/dL Total Bilirubin 0.4 (0.2-1.3) mg/dL AST 21 (14-36) IU/L ALT 8 (<35) IU/L Alkaline Phosphatase 75 (38-126) U/L Total Protein 6.4 (6.3-8.2) g/dL Albumin 3.4 L (3.5-5.0) g/dL Globulin 3.0 (1.7-4.1) g/dL Albumin/Globulin Ratio 1.1 (1.0-2.8) Lipase 114 (23-300) U/L Urine RBC None seen (0-5/HPF) Urine WBC 10-30/hpf H (0-5/HPF) Ur Squamous Epith Cells 1-5 /hpf (0-5/HPF) Urine Bacteria None seen (None) Ur Culture Indicated? Specimen cultured Vol Urine Centrifuged 10ml (spun) Stl C. cayetanensis PCR (Not Detect) Stool Rotavirus (PCR) (Not Detect) Stool Adenovirus (PCR) (Not Detect) Stool Astrovirus (PCR) (Not Detect) Stool Cryptosporidium PCR (Not Detect) Stl E.coli Shiga Tox PCR (Not Detect) St Sh/Enteroin Ecoli PCR (Not Detect) Stl Enterotoxigenic E PCR (Not Detect) Stool EPEC (PCR) (Not Detect) Stl E. histolytica PCR (Not Detect) Stool Giardia Lamblia PCR (Not Detect) Stool Sapovirus (PCR) (Not Detect) Stl P. shigelloides PCR (Not Detect) St Y.enterocolitica PCR (Not Detect) Stool Vibrio (PCR) (Not Detect) Stl Vibrio cholerae PCR (Not Detect) Stl Enteroaggr Ecoli PCR (Not Detect) Stl Norovirus GI/GII PCR (Not Detect) Campylobacter (PCR) (Not Detect) C. difficile Tox (PCR) (Not Detect) Salmonella (PCR) (Not Detect) 03/20/24 Range/Units 13:52 WBC (4.5-11.0) X10^3/uL RBC (4.0-5.2) X10^6/uL Hgb (12.0-16.0) g/dL Hct (36-46) % MCV (80-100) fL MCH (26-34) PG MCHC (30-36) % RDW (11.6-14.8) % Plt Count (150-400) X10^3/uL Neut % (Auto) (50-75) % Lymph % (Auto) (25-40) % Stephenson % (Auto) (3-14) % Eos % (Auto) (2-4) % Baso % (Auto) (0-2) % Neut # (Auto) (1175-6700) /uL Lymph # (Auto) (1959-2155) /uL Stephenson # (Auto) (0-900) /uL Eos # (Auto) (0-450) /uL Baso # (Auto) (0-100) /uL Sodium (137-145) mmol/L Potassium (3.4-5.1) mmol/L Chloride (98-107) mmol/L Carbon Dioxide (22-32) mmol/L BUN (7-17) mg/dL Creatinine (0.52-1.04) mg/dL Estimated GFR (>60) mL/min BUN/Creatinine Ratio (6-22) Glucose (80-110) mg/dL Calcium (8.4-10.2) mg/dL Total Bilirubin (0.2-1.3) mg/dL AST (14-36) IU/L ALT (<35) IU/L Alkaline Phosphatase (38-126) U/L Total Protein (6.3-8.2) g/dL Albumin (3.5-5.0) g/dL Globulin (1.7-4.1) g/dL Albumin/Globulin Ratio (1.0-2.8) Lipase (23-300) U/L Urine RBC (0-5/HPF) Urine WBC (0-5/HPF) Ur Squamous Epith Cells (0-5/HPF) Urine Bacteria (None) Ur Culture Indicated? Vol Urine Centrifuged Stl C. cayetanensis PCR Not detected (Not Detect) Stool Rotavirus (PCR) Not detected (Not Detect) Stool Adenovirus (PCR) Not detected (Not Detect) Stool Astrovirus (PCR) Not detected (Not Detect) Stool Cryptosporidium PCR Not detected (Not Detect) Stl E.coli Shiga Tox PCR Not detected (Not Detect) St Sh/Enteroin Ecoli PCR Not detected (Not Detect) Stl Enterotoxigenic E PCR Not detected (Not Detect) Stool EPEC (PCR) Not detected (Not Detect) Stl E. histolytica PCR Not detected (Not Detect) Stool Giardia Lamblia PCR Not detected (Not Detect) Stool Sapovirus (PCR) Not detected (Not Detect) Stl P. shigelloides PCR Not detected (Not Detect) St Y.enterocolitica PCR Not detected (Not Detect) Stool Vibrio (PCR) Not detected (Not Detect) Stl Vibrio cholerae PCR Not detected (Not Detect) Stl Enteroaggr Ecoli PCR Not detected (Not Detect) Stl Norovirus GI/GII PCR Not detected (Not Detect) Campylobacter (PCR) Not detected (Not Detect) C. difficile Tox (PCR) Not detected (Not Detect) Salmonella (PCR) Not detected (Not Detect) Point of care testing: Urine Dip Bedside Urine Glucose Negative Bedside Urine Bilirubin - Negative Bedside Urine Ketone - Negative Urine Specific [place] 1.020 Bedside Urine Occult Blood - Negative Bedside Urine pH 6.0 Bedside Urine Protein +/- 15 Bedside Urine Urobilinogen - Negative Bedside Urine Nitrite - Negative Bedside Urine Leukocytes +/- [address] scan - abdomen/pelvis: Radiologist's Impression: PROCEDURE: CT ABDOMEN PELVIS W CON INDICATIONS: abd pain, right flank pain TECHNIQUE: After the administration of intravenous contrast, axial sections acquired from the lung bases to the pubic symphysis. Coronal and sagittal reformats were performed. For radiation dose reduction, the following was used: automated exposure control, adjustment of mA and/or kV according to patient size. COMPARISON: [facility], CT, CT ABDOMEN PELVIS W CON, 02/04/2024, 22:37. FINDINGS: Image quality: Diagnostic. Lower Chest: No significant findings. ABDOMEN: Liver: No solid mass. Gallbladder: Cholelithiasis without CT evidence of acute cholecystitis. Biliary ducts: No biliary dilation. Pancreas: No ductal dilation. Spleen: Size is within normal limits. Adrenal Glands: No adrenal nodules. Kidneys and Ureters: No hydronephrosis. No solid mass. No complex renal cystic lesion which requires follow up. Simple cysts and multiple subcentimeter hypodensities which are too small to accurately characterize, similar in appearance to prior. Stomach and Bowel: Thickened appearance at the GE junction with some surgical clips, may be postoperative in etiology. Stable postoperative changes within the bowel with partial colectomy. No splenic sutures are noted within the pelvis with a narrowed appearance of the anastomotic segment. No evidence of obstruction. Peritoneum: No abnormal intraperitoneal fluid. No free air. Ventral Wall: No significant ventral hernia. Abdominal Nodes: No retroperitoneal or mesenteric adenopathy by size criteria. Vessels: Aorta and inferior vena cava are normal in size. Atherosclerotic vascular calcifications. PELVIS: Pelvic Organs: Unremarkable. Bladder: No bladder wall thickening, accounting for underdistention. Pelvic Nodes: No enlarged lymph nodes. Miscellaneous: No inguinal hernias are seen. Bones: No aggressive osseous abnormality. Left hip fixation. Decreased osseous mineralization. Degenerative changes of the spine. Stable L2 compression deformity. IMPRESSION: 1. Stable postoperative changes in the bowel. No evidence of bowel obstruction or other acute findings. No acute findings within the abdomen or pelvis. 2. Stable appearance of the kidneys with multiple cysts and subcentimeter hypodensities. No hydronephrosis. 3. Cholelithiasis without evidence of acute cholecystitis. 4. Thickened appearance at the GE junction with associated surgical clips, may be postoperative in etiology. Recommend clinical correlation. MDM Narrative Medical decision making narrative: Patient presented for abdominal pain, right-sided flank pain after having completed course of antibiotics for pyelonephritis. Lab work unremarkable at this time, CT scan without any abnormal findings, urinalysis did show 10-30 bacteria. Given patient with CVA tenderness and urinalysis with bacteria will treat for acute pyelonephritis. Otherwise unremarkable lab work. Patient will be discharged home with outpatient follow up with PCP. I did review patient's old urine culture sensitivities that was performed on 02/09/24. Does show susceptibility to cephalosporins therefore will send patient home on cephalexin. Patient was instructed to follow up with PCP and GI in outpatient setting. Discharge Plan Departure Patient Disposition: Home Clinical Impression: Acute pyelonephritis Activity Restrictions/Additional Instructions: Please follow-up with your GI doctor in your PCP in outpatient setting Please read the discharge instructions sheet carefully and bring all papers to all doctor follow-up visits, as it may contain information that your doctor may want to see. Disease processes change and evolve, if your symptoms worsen or if you develop any new symptoms that are concerning to you please return for evaluation. Your evaluation today does not show any evidence of any life-threatening/serious illnesses requiring admission to the hospital or surgery. Please follow-up with your doctor for re-evaluation in approximately 1 day. Seek immediate medical attention for any worrisome symptoms. Prescriptions: New ondansetron 4 mg tablet,disintegrating 4 mg PO Q8H PRN (Reason: nausea and vomiting) 4 Days Qty: 12 0RF cephalexin 500 mg capsule 500 mg PO TID 7 Days Qty: 21 0RF No Action losartan 25 MG tablet 75 mg PO QDAY Qty: 0 levothyroxine [Synthroid] 75 MCG tablet 0.075 mg PO QDAY Qty: 0 albuterol sulfate [Ventolin HFA] 90 MCG/PUFF HFA aerosol inhaler 2 puff INH Q4HP PRN (Reason: Bronchospasm) Qty: 0 lamotrigine [Lamictal] 200 MG tablet 400 mg PO QDAY Qty: 0 divalproex 500 MG tablet extended release 24 hr 1,500 mg PO HS Qty: 0 acetaminophen [Tylenol Extra Strength] 500 MG tablet 1,000 mg PO Q6HP PRN (Reason: Abdominal Discomfort) trazodone 50 mg Tablet 50 mg PO BEDTIME Qty: 90 0RF risperidone 0.25 mg tablet 0.25 mg PO TID buspirone 15 mg tablet 15 mg PO BID budesonide 3 mg Capsule,Delayed,Extend.Release 9 mg PO DAILY Qty: 1 0RF cephalexin 500 mg capsule 500 mg PO TID Qty: 30 0RF hydrocodone-acetaminophen 5-325 mg Tablet 1 tab PO Q4HR PRN (Reason: Pain, Moderate (4-6)) Qty: 6 0RF scopolamine base [Transderm-Scop] 1 mg over 3 days Patch 3 Day 1 patch topical Q72H Qty: 6 0RF promethazine 25 mg tablet 25 mg PO TID PRN (Reason: nausea and vomiting) Qty: 20 0RF Referrals: Judy Davison MD [Primary Care Provider] - Stand Alone Forms: Patient Portal/API
[2024-03-20] MEDS: SODIUM CHLORIDE 0.9% 1,000 ML 1000 ML IV (13:34)
[2024-03-20] MEDS: MORPHINE 4 MG/ML INJ IV (13:35)
[2024-03-20 13:38] LABS: Add Manual Diff / Slide Review NO; Basophils Absolute Auto 0 /uL (0-100); Basophils Percent Auto 0.4 % (0-2); Eosinophils Absolute Auto 0 /uL (0-450); Eosinophils Percent Auto 0.7 % (2-4); Hematocrit 35.5 % (36-46); Hemoglobin 12.1 g/dL (12.0-16.0); Lymphocytes Absolute Auto 1700 /uL (1100-4500); Lymphocytes Percent Auto 37.2 % (25-40); Mean Corpuscular HGB Conc 34.1 % (30-36); Mean Corpuscular Hemoglobin 33.7 PG (26-34); Mean Corpuscular Volume 98.9 fL (80-100); Monocytes Absolute Auto 300 /uL (0-900); Monocytes Percent Auto 6.6 % (3-14); Neutrophils Absolute Auto 2600 /uL (1500-7000); Neutrophils Percent Auto 55.1 % (50-75); Platelet Count 185 X10^3/uL (150-400); Red Blood Cell Count 3.59 X10^6/uL (4.0-5.2); Red Cell Distribution Width 13.5 % (11.6-14.8); White Blood Cell Count 4.7 X10^3/uL (4.5-11.0)
[2024-03-20 13:52] LABS: Alanine Aminotransferase 8 IU/L (<35); Albumin 3.4 g/dL (3.5-5.0); Albumin Globulin Ratio 1.1 (1.0-2.8); Alkaline Phosphatase 75 U/L (38-126); Aspartate Aminotransferase 21 IU/L (14-36); Bilirubin Total 0.4 mg/dL (0.2-1.3); Blood Urea Nitrogen 36 mg/dL (7-17); Calcium 8.9 mg/dL (8.4-10.2); Carbon Dioxide 15 mmol/L (22-32); Chloride 109 mmol/L (98-107); Estimated Glomerular Filt Rate 54 mL/min (>60); Glucose 104 mg/dL (80-110); HEMOLYSIS 19 (0-50); Lipase 114 U/L (23-300); Potassium 4.3 mmol/L (3.4-5.1); Sodium 130 mmol/L (137-145); Total Protein 6.4 g/dL (6.3-8.2)
--- NOTE | 2024-03-20 14:41 | EKG_ITS ---
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
[2024-03-20 15:26] LABS: Adenovirus F 40/41 Not Detected (Not Detect); Astrovirus Not Detected (Not Detect); Campylobacter Not Detected (Not Detect); Clostridium difficile toxin AB Not Detected (Not Detect); Cryptosporidium Not Detected (Not Detect); Cyclospora cayetanensis Not Detected (Not Detect); Entamoeba histolytica Not Detected (Not Detect); Enteroaggregative E.coli Not Detected (Not Detect); Enteropathogenic E.coli Not Detected (Not Detect); Enterotoxigenic E.coli It/st Not Detected (Not Detect); Giardia lamblia Not Detected (Not Detect); Norovirus GI/GII Not Detected (Not Detect); Plesiomonsa shigelloides Not Detected (Not Detect); Rotavirus A Not Detected (Not Detect); Salmonella Not Detected (Not Detect); Sapovirus Not Detected (Not Detect); Shiga-like toxin-prod E.coli Not Detected (Not Detect); Shigella/Enteroinvasive E.coli Not Detected (Not Detect); Vibrio Not Detected (Not Detect); Vibrio cholerae Not Detected (Not Detect); Yersinia enterocolitica Not Detected (Not Detect)
[2024-03-20] MEDS: cephALEXin 250 MG CAPSULE 500 MG PO (18:02)
[2024-03-20] MEDS: KETOROLAC 30 MG/ML VIAL IV (18:02)
[2024-03-20] MEDS: ONDANSETRON 4 MG/2 ML INJ IV (18:03)
== END 2024-03-20 18:17 | disposition home or self-care (01) ==
PROVIDERS: Emergency Provider Student in an Organized Health Care Education/Training Program; Family Provider Internal Medicine; PCP Internal Medicine
DX: N10 Acute pyelonephritis (principal); I49.8 Other specified cardiac arrhythmias
CPT/HCPCS: 36415; 74177; 80053; 81003; 81015; 83690; 85025; 87086; 87507; 93005; 96361; 96374; 96375; 99284; J1885; J2270; J2405

== ENCOUNTER 2024-08-16 13:47 | Inpatient (IN) | payer MEDICARE, OTHER, SELFPAY ==
[2024-02-05 04:09] VITALS: BMI 19.1
[2024-08-16] VITALS (10 sets, daily range): BP systolic 105–125; BP diastolic 56–69; PULSE 68–94; RESP 12–30; TEMP 36.2–36.7; O2SAT 93–100; BMI 19.3; BMI 18.7
--- NOTE | 2024-08-16 14:05 | DI.RAD.S_ITS ---
PROCEDURE: XR CHEST 2V INDICATIONS: rule out pneumonia TECHNIQUE: 2 views of the chest were acquired. COMPARISON: [facility], CR, XR CHEST 1V, 02/05/2024, 3:03. FINDINGS: Surgical changes and devices: Left upper chest clips Lungs and pleura: Lungs are clear. No pleural effusions or pneumothorax. Mediastinum: Mediastinal contours are normal. Heart size is normal. Bones and chest wall: No suspicious bony abnormalities. Diffuse osteopenia with increased thoracic kyphosis. Soft tissues appear unremarkable. IMPRESSION: No acute cardiopulmonary abnormality is seen. Dictated by: Nilesh Mcclelland M.D. on 08/16/2024 at 15:01 Approved by: Nilesh Mcclelland M.D. on 08/16/2024 at 15:01
[2024-08-16 15:08] LABS: Influenza A - CEPHEID Flu A NEGATIVE (NEGATIVE); Influenza B - CEPHEID Flu B NEGATIVE (NEGATIVE); Respiratory Syncytial Virus Negative (Negative)
[2024-08-16 15:09] LABS: COVID-19 CEPHEID 4-PLEX PCR Negative (Negative)
--- NOTE | 2024-08-16 15:14 | ED_ITS ---
HPI - URI/Sore Throat <Bobbi Merrill PA-C - Last Filed: 08/16/24 19:42> General Chief Complaint: Upper Respiratory Symptoms Stated Complaint: Resp infection,Diarrhea,Vomiting Time Seen by Provider: 08/16/24 14:08 Source: patient Mode of arrival: Ambulatory History of Present Illness HPI Narrative: Ms. Watkins is a 73-year-old female with a past medical history of ulcerative colitis s/p total colectomy 1992 now with J pouch, Crohn's disease on daily steroids, asthma, bipolar, HTN, who presents to the emergency department for abdominal pain, nausea, vomiting, diarrhea x1 week, weakness and cough x1 month. Patient states she has had upper respiratory infection type symptoms over the last month however just over the last week she started developing abdominal pain nausea vomiting and diarrhea which is making her feel very weak. States that she has lost about 10 lb this month and continues to have light brown/watery diarrhea every single day. Denies recent antibiotics or hx of c.diff. Today she started having some vomiting. She has not been eating much this last week. She also has a productive cough that has been lingering and causing her to wheeze. Symptoms do improve slightly with albuterol. States she is allergic to morphine develops rash, but can tolerate Dilaudid. Related Data Home Medications Medication Instructions Recorded Confirmed albuterol sulfate 90 mcg/actuation 2 puff INH Q4HP PRN Bronchospasm 04/17/16 08/16/24 aerosol inhaler (Ventolin HFA) ##0 divalproex 500 mg tablet,extended 1,500 mg PO HS ##0 04/17/16 08/17/24 release 24 hr lamotrigine 200 mg tablet 300 mg PO BEDTIME ##0 04/17/16 08/17/24 (Lamictal) levothyroxine 75 mcg tablet 0.075 mg PO QDAY ##0 04/17/16 08/16/24 (Synthroid) losartan 25 mg tablet 75 mg PO QDAY ##0 04/17/16 08/16/24 acetaminophen 500 mg tablet 1,000 mg PO Q6HP PRN Abdominal 05/28/21 08/16/24 (Tylenol Extra Strength) Discomfort risperidone 0.25 mg tablet 0.25 mg PO TID 02/05/24 08/16/24 buspirone 15 mg tablet 15 mg PO BID 02/06/24 08/16/24 trazodone 50 mg tablet 300 mg PO BEDTIME 08/17/24 08/17/24 Previous Rx's Medication Instructions Recorded scopolamine base 1 mg over 3 days 1 patch topical Q72H #6 ea 06/20/21 transdermal patch (Transderm-Scop) promethazine 25 mg tablet 25 mg PO TID PRN nausea and 06/27/21 vomiting #20 tabs budesonide 3 mg 9 mg (3 x 3 mg) PO DAILY #1 ea 02/09/24 capsule,delayed,extended release Allergies Allergy/AdvReac Type Severity Reaction Status Date / Time butorphanol Allergy Unknown Verified 03/20/24 12:24 Influenza Virus Vaccines Allergy Unknown ITCHING, Verified 03/20/24 12:24 BAD REACTION meperidine Allergy Unknown Verified 03/20/24 12:24 pneumococcal vaccine Allergy Unknown Verified 03/20/24 12:24 quetiapine Allergy Unknown Verified 03/20/24 12:24 shellfish derived Allergy Unknown Verified 03/20/24 12:24 neuroleptics AdvReac Unknown PT STATES Uncoded 03/20/24 12:24 HAD REALLY BAD REACTION, UNABLE TO STATE WHAT Review of Systems <Bobbi Merrill PA-C - Last Filed: 08/16/24 19:42> Review of Systems ROS Unobtainable: All systems reviewed & are unremarkable except as noted in HPI and below Patient History <Bobbi Merrill PA-C - Last Filed: 08/16/24 19:42> Medical History Generalized weakness Small bowel obstruction Surgical History H/O thyroidectomy Family History Mother Diabetes mellitus Heart disease Father Diabetes mellitus Heart disease Brother Myocardial infarction CVA (cerebral vascular accident) Other Hypertension Social History household members: spouse Smoking Status: Never smoker alcohol intake: former Smoking Status: Never smoker alcohol intake frequency: 0-2 drinks per day Exam <Bobbi Merrill PA-C - Last Filed: 08/16/24 19:42> Narrative Exam Narrative: GENERAL: 73 year old patient appears stated age. Thin elderly frail patient, ill-appearing. HEAD: Atraumatic. Normocephalic. EYES: No scleral icterus. No injection or drainage. NECK: Trachea midline. Cervical ROM intact. CARDIOVASCULAR: Regular rate and rhythm. RESPIRATORY: Nonlabored respirations. Speaking in clear, full sentences. Frequent productive cough. Faint inspiratory and expiratory wheezing in BL lower lung viveros. GASTROINTESTINAL: Multiple prior surgical scars. Diffuse abdominal tenderness, no rebound but there is voluntary guarding. EXTREMITIES: No LE edema. NEURO: AOx3. Clear speech. Moves all 4 extremities appropriately. L eyebrow more drooped than right, pt states chronic, normal facial movements. SKIN: No rash or erythema of visible areas Initial Vital Signs Initial Vital Signs: Vital Signs Temperature 97.2 F L 08/16/24 13:58 Pulse Rate 74 08/16/24 13:58 Respiratory Rate 20 08/16/24 13:58 Blood Pressure 105/57 L 08/16/24 13:58 Pulse Oximetry 100 08/16/24 13:58 Oxygen Delivery Method Room Air 08/16/24 13:58 <Jaycob Josue MD - Last Filed: 08/19/24 07:31> Initial Vital Signs Initial Vital Signs: Vital Signs Temperature 97.2 F L 08/16/24 13:58 Pulse Rate 74 08/16/24 13:58 Respiratory Rate 20 08/16/24 13:58 Blood Pressure 105/57 L 08/16/24 13:58 Pulse Oximetry 100 08/16/24 13:58 Oxygen Delivery Method Room Air 08/16/24 13:58 <Jt Jolley MD - Last Filed: 08/16/24 22:24> Initial Vital Signs Initial Vital Signs: Vital Signs Temperature 97.2 F L 08/16/24 13:58 Pulse Rate 74 08/16/24 13:58 Respiratory Rate 20 08/16/24 13:58 Blood Pressure 105/57 L 08/16/24 13:58 Pulse Oximetry 100 08/16/24 13:58 Oxygen Delivery Method Room Air 08/16/24 13:58 Course <Bobbi Merrill PA-C - Last Filed: 08/16/24 19:42> Orders Ordered: Acetaminophen (Acetaminophen 325 Mg Tablet) 650 mg PO Q6H PRN PRN Reason: Fever/Mild Pain (1-3) Last Admin: 08/19/24 01:55 Dose: 650 mg Documented By: TERA Acetaminophen (Acetaminophen 325 Mg Tablet) 975 mg PO Q6H PRN PRN Reason: abdominal pain Albuterol (Albuterol 2.5 Mg/3 Ml Neb (Adult)) 2.5 mg INH Q4H PRN PRN Reason: bronchospasm Albuterol/Ipratropium (Albuterol/Ipratropium 3 Ml Ampul) 3 ml INH RTQ4HR PRN PRN Reason: Shortness Of Breath Budesonide (Budesonide 3 Mg Cap) 9 mg PO DAILY [facility] Last Admin: 08/18/24 08:29 Dose: 9 mg Documented By: Admin: 08/17/24 13:24 Dose: 9 mg Documented By: CONSTANTINE Buspirone HCl (Buspirone 5 Mg Tablet) 15 mg PO BID [facility] Last Admin: 08/18/24 20:00 Dose: 15 mg Documented By: Admin: 08/18/24 08:29 Dose: 15 mg Documented By: Admin: 08/17/24 21:42 Dose: 15 mg Documented By: Admin: 08/17/24 11:30 Dose: 15 mg Documented By: CONSTANTINE Divalproex Sodium (Divalproex Er 250 Mg Tab) 1,500 mg PO BEDTIME [facility] Last Admin: 08/18/24 20:01 Dose: 1,500 mg Documented By: Admin: 08/17/24 21:42 Dose: 1,500 mg Documented By: Admin: 08/17/24 02:44 Dose: 1,500 mg Documented By: DEB Hydromorphone HCl (Hydromorphone 1 Mg Inj) 1 mg IV Q4H PRN PRN Reason: Pain, Moderate (4-6) Last Admin: 08/18/24 23:32 Dose: 1 mg Documented By: Admin: 08/18/24 17:34 Dose: 1 mg Documented By: Admin: 08/18/24 01:35 Dose: 1 mg Documented By: Admin: 08/17/24 21:59 Dose: 1 mg Documented By: Admin: 08/17/24 16:17 Dose: 1 mg Documented By: CONSTANTINE Hydromorphone HCl (Hydromorphone 2 Mg Inj) 2 mg IV Q4H PRN PRN Reason: Pain, Severe (7-10) Last Admin: 08/18/24 06:19 Dose: 2 mg Documented By: AMANDEEP Ceftriaxone Sodium 1,000 mg/ (Sodium Chloride) 100 mls @ 200 mls/hr IV DAILY [facility] Last Admin: 08/17/24 16:16 Dose: 200 mls/hr Documented By: Admin: 08/17/24 11:42 Dose: Not Given Documented By: CONSTANTINE Metronidazole (Flagyl) 500 mg in 100 mls @ 100 mls/hr IV Q8H [facility] Last Admin: 08/18/24 23:26 Dose: 100 mls/hr Documented By: Infusion: 08/18/24 17:55 Dose: Infused Documented By: Admin: 08/18/24 16:55 Dose: 100 mls/hr Documented By: AMANDEEP(2) Infusion: 08/18/24 10:06 Dose: Infused Documented By: Admin: 08/18/24 08:30 Dose: 100 mls/hr Documented By: Infusion: 08/18/24 01:31 Dose: Infused Documented By: Admin: 08/17/24 23:49 Dose: 100 mls/hr Documented By: Infusion: 08/17/24 17:36 Dose: Infused Documented By: Admin: 08/17/24 16:36 Dose: 100 mls/hr Documented By: CONSTANTINE Lamotrigine (Lamotrigine 100 Mg Tablet) 300 mg PO BEDTIME [facility] Last Admin: 08/18/24 20:00 Dose: 300 mg Documented By: Admin: 08/17/24 21:42 Dose: 300 mg Documented By: Admin: 08/17/24 02:45 Dose: 300 mg Documented By: DEB Levothyroxine Sodium (Levothyroxine 75 Mcg Tablet) 75 mcg PO 0600 [facility] Last Admin: 08/19/24 05:51 Dose: 75 mcg Documented By: Admin: 08/18/24 05:32 Dose: 75 mcg Documented By: Admin: 08/17/24 06:32 Dose: 75 mcg Documented By: Losartan Potassium (Losartan 25 Mg Tablet) 75 mg PO DAILY [facility] Last Admin: 08/18/24 10:06 Dose: Not Given Documented By: Admin: 08/17/24 11:28 Dose: Not Given Documented By: CONSTANTINE Morphine Sulfate (Morphine 2 Mg/Ml Inj) 2 mg IV Q4HR PRN PRN Reason: Pain, Moderate (4-6) Last Admin: 08/17/24 06:32 Dose: 2 mg Documented By: Admin: 08/17/24 00:43 Dose: 2 mg Documented By: Admin: 08/16/24 20:50 Dose: 2 mg Documented By: SOPHIA Naloxone HCl (Naloxone 0.4 Mg/Ml Vial) 0.2 mg IV Q2MIN PRN PRN Reason: Opiate Reversal Ondansetron HCl (Ondansetron 4 Mg/2 Ml Inj) 4 mg IV Q8HR PRN PRN Reason: Nausea And Vomiting Last Admin: 08/17/24 21:44 Dose: 4 mg Documented By: Admin: 08/17/24 16:17 Dose: 4 mg Documented By: Admin: 08/17/24 02:51 Dose: 4 mg Documented By: DEB Oxycodone HCl (Oxycodone Ir 5 Mg Tablet) 5 mg PO Q3HR PRN PRN Reason: Pain, Moderate (4-6) Last Admin: 08/17/24 13:23 Dose: 5 mg Documented By: CONSTANTINE Promethazine HCl (Promethazine 25 Mg Tablet) 25 mg PO TID PRN PRN Reason: nausea and vomiting Last Admin: 08/18/24 20:01 Dose: 25 mg Documented By: Admin: 08/18/24 10:10 Dose: 25 mg Documented By: Admin: 08/17/24 10:53 Dose: 25 mg Documented By: CONSTANTINE Risperidone (Risperidone 0.25 Mg Tablet) 0.25 mg PO TID CYNDI Last Admin: 08/18/24 20:00 Dose: 0.25 mg Documented By: Admin: 08/18/24 16:55 Dose: 0.25 mg Documented By: AMANDEEP(2) Admin: 08/18/24 08:29 Dose: 0.25 mg Documented By: Admin: 08/17/24 21:42 Dose: 0.25 mg Documented By: Admin: 08/17/24 16:17 Dose: 0.25 mg Documented By: Admin: 08/17/24 11:35 Dose: 0.25 mg Documented By: Admin: 08/17/24 02:45 Dose: 0.25 mg Documented By: DEB Scopolamine (Scopolamine 1 Patch) 1 patch TOP Q72H CYNDI Last Admin: 08/18/24 08:49 Dose: 1 patch Documented By: SARAH Trazodone HCl (Trazodone 50 Mg Tablet) 300 mg PO BEDTIME [facility] Last Admin: 08/18/24 20:00 Dose: 300 mg Documented By: Admin: 08/17/24 21:42 Dose: 300 mg Documented By: Admin: 08/17/24 02:45 Dose: 300 mg Documented By: DEB Discontinued Medications Albuterol/Ipratropium (Albuterol/Ipratropium 3 Ml Ampul) 3 ml INH NOW ONE Stop: 08/16/24 15:32 Last Admin: 08/16/24 15:40 Dose: 3 ml Documented By: JAN Hydromorphone HCl (Hydromorphone 0.5 Mg Inj) 0.5 mg IV NOW ONE Stop: 08/16/24 15:30 Last Admin: 08/16/24 16:36 Dose: 0.5 mg Documented By: SOPHIA Sodium Chloride (Normal Saline 0.9%) 1,000 mls @ 1,000 mls/hr IV BOLUS ONE Stop: 08/16/24 16:28 Last Infusion: 08/16/24 20:08 Dose: Infused Documented By: Admin: 08/16/24 18:41 Dose: 1,000 mls/hr Documented By: SOPHIA Ceftriaxone Sodium 1,000 mg/ (Sodium Chloride) 100 mls @ 200 mls/hr IV NOW ONE Stop: 08/16/24 20:43 Last Infusion: 08/16/24 21:36 Dose: Infused Documented By: Admin: 08/16/24 20:48 Dose: 200 mls/hr Documented By: SOPHIA Metronidazole (Flagyl) 500 mg in 100 mls @ 100 mls/hr IV NOW ONE Stop: 08/16/24 21:41 Last Admin: 08/17/24 00:47 Dose: 100 mls/hr Documented By: DEB Sodium Chloride (Normal Saline 0.9%) 1,000 mls @ 150 mls/hr IV CONT CYNDI Last Admin: 08/18/24 10:10 Dose: 150 mls/hr Documented By: Infusion: 08/18/24 08:11 Dose: Infused Documented By: Admin: 08/18/24 01:30 Dose: 150 mls/hr Documented By: Infusion: 08/17/24 15:05 Dose: Infused Documented By: Admin: 08/17/24 08:24 Dose: 150 mls/hr Documented By: Infusion: 08/17/24 07:27 Dose: Infused Documented By: Admin: 08/17/24 00:46 Dose: 150 mls/hr Documented By: DEB Methylprednisolone (Methylprednisolone 125 Mg/2 Ml Vial) 125 mg IV NOW ONE Stop: 08/16/24 15:32 Last Admin: 08/16/24 16:37 Dose: 125 mg Documented By: SOPHIA Ondansetron HCl (Ondansetron 4 Mg/2 Ml Inj) 4 mg IV NOW ONE Stop: 08/16/24 15:30 Last Admin: 08/16/24 16:37 Dose: 4 mg Documented By: SOPHIA Scopolamine (Scopolamine 1 Patch) 1 patch TOP Q72H CYNDI Last Admin: 08/18/24 08:42 Dose: 1 patch Documented By: Admin: 08/17/24 02:46 Dose: Not Given Documented By: DEB Vital Signs Vital signs: Vital Signs - 8 hr 08/16/24 16:00 08/16/24 16:22 08/16/24 16:22 Temperature 98.0 F Pulse Rate 77 Respiratory Rate 18 Blood Pressure 123/57 L Pulse Oximetry 99 95 Oxygen Delivery Method Room Air 08/16/24 16:30 08/16/24 16:30 08/16/24 17:00 Temperature Pulse Rate 92 H 78 Respiratory Rate 30 H 25 H Blood Pressure 123/58 L Pulse Oximetry 100 Oxygen Delivery Method 08/16/24 17:30 08/16/24 18:00 08/16/24 18:30 Temperature Pulse Rate 94 H 69 68 Respiratory Rate 12 13 Blood Pressure Pulse Oximetry 93 97 99 Oxygen Delivery Method 08/16/24 18:40 08/16/24 18:40 Temperature Pulse Rate 74 Respiratory Rate Blood Pressure 120/69 Pulse Oximetry 96 Oxygen Delivery Method <Jaycob Josue MD - Last Filed: 08/19/24 07:31> Orders Ordered: Acetaminophen (Acetaminophen 325 Mg Tablet) 650 mg PO Q6H PRN PRN Reason: Fever/Mild Pain (1-3) Last Admin: 08/19/24 01:55 Dose: 650 mg Documented By: TERA Acetaminophen (Acetaminophen 325 Mg Tablet) 975 mg PO Q6H PRN PRN Reason: abdominal pain Albuterol (Albuterol 2.5 Mg/3 Ml Neb (Adult)) 2.5 mg INH Q4H PRN PRN Reason: bronchospasm Albuterol/Ipratropium (Albuterol/Ipratropium 3 Ml Ampul) 3 ml INH RTQ4HR PRN PRN Reason: Shortness Of Breath Budesonide (Budesonide 3 Mg Cap) 9 mg PO DAILY [facility] Last Admin: 08/18/24 08:29 Dose: 9 mg Documented By: Admin: 08/17/24 13:24 Dose: 9 mg Documented By: CONSTANTINE Buspirone HCl (Buspirone 5 Mg Tablet) 15 mg PO BID [facility] Last Admin: 08/18/24 20:00 Dose: 15 mg Documented By: Admin: 08/18/24 08:29 Dose: 15 mg Documented By: Admin: 08/17/24 21:42 Dose: 15 mg Documented By: Admin: 08/17/24 11:30 Dose: 15 mg Documented By: CONSTANTINE Divalproex Sodium (Divalproex Er 250 Mg Tab) 1,500 mg PO BEDTIME [facility] Last Admin: 08/18/24 20:01 Dose: 1,500 mg Documented By: Admin: 08/17/24 21:42 Dose: 1,500 mg Documented By: Admin: 08/17/24 02:44 Dose: 1,500 mg Documented By: DEB Hydromorphone HCl (Hydromorphone 1 Mg Inj) 1 mg IV Q4H PRN PRN Reason: Pain, Moderate (4-6) Last Admin: 08/18/24 23:32 Dose: 1 mg Documented By: Admin: 08/18/24 17:34 Dose: 1 mg Documented By: Admin: 08/18/24 01:35 Dose: 1 mg Documented By: Admin: 08/17/24 21:59 Dose: 1 mg Documented By: Admin: 08/17/24 16:17 Dose: 1 mg Documented By: CONSTANTINE Hydromorphone HCl (Hydromorphone 2 Mg Inj) 2 mg IV Q4H PRN PRN Reason: Pain, Severe (7-10) Last Admin: 08/18/24 06:19 Dose: 2 mg Documented By: AMANDEEP Ceftriaxone Sodium 1,000 mg/ (Sodium Chloride) 100 mls @ 200 mls/hr IV DAILY [facility] Last Admin: 08/17/24 16:16 Dose: 200 mls/hr Documented By: Admin: 08/17/24 11:42 Dose: Not Given Documented By: CONSTANTINE Metronidazole (Flagyl) 500 mg in 100 mls @ 100 mls/hr IV Q8H [facility] Last Admin: 08/18/24 23:26 Dose: 100 mls/hr Documented By: Infusion: 08/18/24 17:55 Dose: Infused Documented By: Admin: 08/18/24 16:55 Dose: 100 mls/hr Documented By: AMANDEEP(2) Infusion: 08/18/24 10:06 Dose: Infused Documented By: Admin: 08/18/24 08:30 Dose: 100 mls/hr Documented By: Infusion: 08/18/24 01:31 Dose: Infused Documented By: Admin: 08/17/24 23:49 Dose: 100 mls/hr Documented By: Infusion: 08/17/24 17:36 Dose: Infused Documented By: Admin: 08/17/24 16:36 Dose: 100 mls/hr Documented By: CONSTANTINE Lamotrigine (Lamotrigine 100 Mg Tablet) 300 mg PO BEDTIME [facility] Last Admin: 08/18/24 20:00 Dose: 300 mg Documented By: Admin: 08/17/24 21:42 Dose: 300 mg Documented By: Admin: 08/17/24 02:45 Dose: 300 mg Documented By: DEB Levothyroxine Sodium (Levothyroxine 75 Mcg Tablet) 75 mcg PO 0600 [facility] Last Admin: 08/19/24 05:51 Dose: 75 mcg Documented By: Admin: 08/18/24 05:32 Dose: 75 mcg Documented By: Admin: 08/17/24 06:32 Dose: 75 mcg Documented By: Losartan Potassium (Losartan 25 Mg Tablet) 75 mg PO DAILY [facility] Last Admin: 08/18/24 10:06 Dose: Not Given Documented By: Admin: 08/17/24 11:28 Dose: Not Given Documented By: CONSTANTINE Morphine Sulfate (Morphine 2 Mg/Ml Inj) 2 mg IV Q4HR PRN PRN Reason: Pain, Moderate (4-6) Last Admin: 08/17/24 06:32 Dose: 2 mg Documented By: Admin: 08/17/24 00:43 Dose: 2 mg Documented By: Admin: 08/16/24 20:50 Dose: 2 mg Documented By: SOPHIA Naloxone HCl (Naloxone 0.4 Mg/Ml Vial) 0.2 mg IV Q2MIN PRN PRN Reason: Opiate Reversal Ondansetron HCl (Ondansetron 4 Mg/2 Ml Inj) 4 mg IV Q8HR PRN PRN Reason: Nausea And Vomiting Last Admin: 08/17/24 21:44 Dose: 4 mg Documented By: Admin: 08/17/24 16:17 Dose: 4 mg Documented By: Admin: 08/17/24 02:51 Dose: 4 mg Documented By: DEB Oxycodone HCl (Oxycodone Ir 5 Mg Tablet) 5 mg PO Q3HR PRN PRN Reason: Pain, Moderate (4-6) Last Admin: 08/17/24 13:23 Dose: 5 mg Documented By: CONSTANTINE Promethazine HCl (Promethazine 25 Mg Tablet) 25 mg PO TID PRN PRN Reason: nausea and vomiting Last Admin: 08/18/24 20:01 Dose: 25 mg Documented By: Admin: 08/18/24 10:10 Dose: 25 mg Documented By: Admin: 08/17/24 10:53 Dose: 25 mg Documented By: CONSTANTINE Risperidone (Risperidone 0.25 Mg Tablet) 0.25 mg PO TID CYNDI Last Admin: 08/18/24 20:00 Dose: 0.25 mg Documented By: Admin: 08/18/24 16:55 Dose: 0.25 mg Documented By: AMANDEEP(2) Admin: 08/18/24 08:29 Dose: 0.25 mg Documented By: Admin: 08/17/24 21:42 Dose: 0.25 mg Documented By: Admin: 08/17/24 16:17 Dose: 0.25 mg Documented By: Admin: 08/17/24 11:35 Dose: 0.25 mg Documented By: Admin: 08/17/24 02:45 Dose: 0.25 mg Documented By: DEB Scopolamine (Scopolamine 1 Patch) 1 patch TOP Q72H [facility] Last Admin: 08/18/24 08:49 Dose: 1 patch Documented By: SARAH Trazodone HCl (Trazodone 50 Mg Tablet) 300 mg PO BEDTIME CYNDI Last Admin: 08/18/24 20:00 Dose: 300 mg Documented By: Admin: 08/17/24 21:42 Dose: 300 mg Documented By: Admin: 08/17/24 02:45 Dose: 300 mg Documented By: DEB Discontinued Medications Albuterol/Ipratropium (Albuterol/Ipratropium 3 Ml Ampul) 3 ml INH NOW ONE Stop: 08/16/24 15:32 Last Admin: 08/16/24 15:40 Dose: 3 ml Documented By: JAN Hydromorphone HCl (Hydromorphone 0.5 Mg Inj) 0.5 mg IV NOW ONE Stop: 08/16/24 15:30 Last Admin: 08/16/24 16:36 Dose: 0.5 mg Documented By: SOPHIA Sodium Chloride (Normal Saline 0.9%) 1,000 mls @ 1,000 mls/hr IV BOLUS ONE Stop: 08/16/24 16:28 Last Infusion: 08/16/24 20:08 Dose: Infused Documented By: Admin: 08/16/24 18:41 Dose: 1,000 mls/hr Documented By: SOPHIA Ceftriaxone Sodium 1,000 mg/ (Sodium Chloride) 100 mls @ 200 mls/hr IV NOW ONE Stop: 08/16/24 20:43 Last Infusion: 08/16/24 21:36 Dose: Infused Documented By: Admin: 08/16/24 20:48 Dose: 200 mls/hr Documented By: SOPHIA Metronidazole (Flagyl) 500 mg in 100 mls @ 100 mls/hr IV NOW ONE Stop: 08/16/24 21:41 Last Admin: 08/17/24 00:47 Dose: 100 mls/hr Documented By: DEB Sodium Chloride (Normal Saline 0.9%) 1,000 mls @ 150 mls/hr IV CONT CYNDI Last Admin: 08/18/24 10:10 Dose: 150 mls/hr Documented By: Infusion: 08/18/24 08:11 Dose: Infused Documented By: Admin: 08/18/24 01:30 Dose: 150 mls/hr Documented By: Infusion: 08/17/24 15:05 Dose: Infused Documented By: Admin: 08/17/24 08:24 Dose: 150 mls/hr Documented By: Infusion: 08/17/24 07:27 Dose: Infused Documented By: Admin: 08/17/24 00:46 Dose: 150 mls/hr Documented By: DEB Methylprednisolone (Methylprednisolone 125 Mg/2 Ml Vial) 125 mg IV NOW ONE Stop: 08/16/24 15:32 Last Admin: 08/16/24 16:37 Dose: 125 mg Documented By: SOPHIA Ondansetron HCl (Ondansetron 4 Mg/2 Ml Inj) 4 mg IV NOW ONE Stop: 08/16/24 15:30 Last Admin: 08/16/24 16:37 Dose: 4 mg Documented By: SOPHIA Scopolamine (Scopolamine 1 Patch) 1 patch TOP Q72H CYNDI Last Admin: 08/18/24 08:42 Dose: 1 patch Documented By: Admin: 08/17/24 02:46 Dose: Not Given Documented By: DEB Vital Signs Vital signs: Vital Signs - 8 hr 08/16/24 16:00 08/16/24 16:22 08/16/24 16:22 Temperature 98.0 F Pulse Rate 77 Respiratory Rate 18 Blood Pressure 123/57 L Pulse Oximetry 99 95 Oxygen Delivery Method Room Air 08/16/24 16:30 08/16/24 16:30 08/16/24 17:00 Temperature Pulse Rate 92 H 78 Respiratory Rate 30 H 25 H Blood Pressure 123/58 L Pulse Oximetry 100 Oxygen Delivery Method 08/16/24 17:30 08/16/24 18:00 08/16/24 18:30 Temperature Pulse Rate 94 H 69 68 Respiratory Rate 12 13 Blood Pressure Pulse Oximetry 93 97 99 Oxygen Delivery Method 08/16/24 18:40 08/16/24 18:40 Temperature Pulse Rate 74 Respiratory Rate Blood Pressure 120/69 Pulse Oximetry 96 Oxygen Delivery Method <Jt Jolley MD - Last Filed: 08/16/24 22:24> Orders Ordered: Acetaminophen (Acetaminophen 325 Mg Tablet) 650 mg PO Q6H PRN PRN Reason: Fever/Mild Pain (1-3) Last Admin: 08/19/24 01:55 Dose: 650 mg Documented By: TERA Acetaminophen (Acetaminophen 325 Mg Tablet) 975 mg PO Q6H PRN PRN Reason: abdominal pain Albuterol (Albuterol 2.5 Mg/3 Ml Neb (Adult)) 2.5 mg INH Q4H PRN PRN Reason: bronchospasm Albuterol/Ipratropium (Albuterol/Ipratropium 3 Ml Ampul) 3 ml INH RTQ4HR PRN PRN Reason: Shortness Of Breath Budesonide (Budesonide 3 Mg Cap) 9 mg PO DAILY [facility] Last Admin: 08/18/24 08:29 Dose: 9 mg Documented By: Admin: 08/17/24 13:24 Dose: 9 mg Documented By: CONSTANTINE Buspirone HCl (Buspirone 5 Mg Tablet) 15 mg PO BID [facility] Last Admin: 08/18/24 20:00 Dose: 15 mg Documented By: Admin: 08/18/24 08:29 Dose: 15 mg Documented By: Admin: 08/17/24 21:42 Dose: 15 mg Documented By: Admin: 08/17/24 11:30 Dose: 15 mg Documented By: CONSTANTINE Divalproex Sodium (Divalproex Er 250 Mg Tab) 1,500 mg PO BEDTIME [facility] Last Admin: 08/18/24 20:01 Dose: 1,500 mg Documented By: Admin: 08/17/24 21:42 Dose: 1,500 mg Documented By: Admin: 08/17/24 02:44 Dose: 1,500 mg Documented By: DEB Hydromorphone HCl (Hydromorphone 1 Mg Inj) 1 mg IV Q4H PRN PRN Reason: Pain, Moderate (4-6) Last Admin: 08/18/24 23:32 Dose: 1 mg Documented By: Admin: 08/18/24 17:34 Dose: 1 mg Documented By: Admin: 08/18/24 01:35 Dose: 1 mg Documented By: Admin: 08/17/24 21:59 Dose: 1 mg Documented By: Admin: 08/17/24 16:17 Dose: 1 mg Documented By: CONSTANTINE Hydromorphone HCl (Hydromorphone 2 Mg Inj) 2 mg IV Q4H PRN PRN Reason: Pain, Severe (7-10) Last Admin: 08/18/24 06:19 Dose: 2 mg Documented By: AMANDEEP Ceftriaxone Sodium 1,000 mg/ (Sodium Chloride) 100 mls @ 200 mls/hr IV DAILY [facility] Last Admin: 08/17/24 16:16 Dose: 200 mls/hr Documented By: Admin: 08/17/24 11:42 Dose: Not Given Documented By: CONSTANTINE Metronidazole (Flagyl) 500 mg in 100 mls @ 100 mls/hr IV Q8H [facility] Last Admin: 08/18/24 23:26 Dose: 100 mls/hr Documented By: Infusion: 08/18/24 17:55 Dose: Infused Documented By: Admin: 08/18/24 16:55 Dose: 100 mls/hr Documented By: AMANDEEP(2) Infusion: 08/18/24 10:06 Dose: Infused Documented By: Admin: 08/18/24 08:30 Dose: 100 mls/hr Documented By: Infusion: 08/18/24 01:31 Dose: Infused Documented By: Admin: 08/17/24 23:49 Dose: 100 mls/hr Documented By: Infusion: 08/17/24 17:36 Dose: Infused Documented By: Admin: 08/17/24 16:36 Dose: 100 mls/hr Documented By: CONSTANTINE Lamotrigine (Lamotrigine 100 Mg Tablet) 300 mg PO BEDTIME [facility] Last Admin: 08/18/24 20:00 Dose: 300 mg Documented By: Admin: 08/17/24 21:42 Dose: 300 mg Documented By: Admin: 08/17/24 02:45 Dose: 300 mg Documented By: DEB Levothyroxine Sodium (Levothyroxine 75 Mcg Tablet) 75 mcg PO 0600 [facility] Last Admin: 08/19/24 05:51 Dose: 75 mcg Documented By: Admin: 08/18/24 05:32 Dose: 75 mcg Documented By: Admin: 08/17/24 06:32 Dose: 75 mcg Documented By: Losartan Potassium (Losartan 25 Mg Tablet) 75 mg PO DAILY [facility] Last Admin: 08/18/24 10:06 Dose: Not Given Documented By: Admin: 08/17/24 11:28 Dose: Not Given Documented By: CONSTANTINE Morphine Sulfate (Morphine 2 Mg/Ml Inj) 2 mg IV Q4HR PRN PRN Reason: Pain, Moderate (4-6) Last Admin: 08/17/24 06:32 Dose: 2 mg Documented By: Admin: 08/17/24 00:43 Dose: 2 mg Documented By: Admin: 08/16/24 20:50 Dose: 2 mg Documented By: SOPHIA Naloxone HCl (Naloxone 0.4 Mg/Ml Vial) 0.2 mg IV Q2MIN PRN PRN Reason: Opiate Reversal Ondansetron HCl (Ondansetron 4 Mg/2 Ml Inj) 4 mg IV Q8HR PRN PRN Reason: Nausea And Vomiting Last Admin: 08/17/24 21:44 Dose: 4 mg Documented By: Admin: 08/17/24 16:17 Dose: 4 mg Documented By: Admin: 08/17/24 02:51 Dose: 4 mg Documented By: DEB Oxycodone HCl (Oxycodone Ir 5 Mg Tablet) 5 mg PO Q3HR PRN PRN Reason: Pain, Moderate (4-6) Last Admin: 08/17/24 13:23 Dose: 5 mg Documented By: CONSTANTINE Promethazine HCl (Promethazine 25 Mg Tablet) 25 mg PO TID PRN PRN Reason: nausea and vomiting Last Admin: 08/18/24 20:01 Dose: 25 mg Documented By: Admin: 08/18/24 10:10 Dose: 25 mg Documented By: Admin: 08/17/24 10:53 Dose: 25 mg Documented By: CONSTANTINE Risperidone (Risperidone 0.25 Mg Tablet) 0.25 mg PO TID [facility] Last Admin: 08/18/24 20:00 Dose: 0.25 mg Documented By: Admin: 08/18/24 16:55 Dose: 0.25 mg Documented By: AMANDEEP(2) Admin: 08/18/24 08:29 Dose: 0.25 mg Documented By: Admin: 08/17/24 21:42 Dose: 0.25 mg Documented By: Admin: 08/17/24 16:17 Dose: 0.25 mg Documented By: Admin: 08/17/24 11:35 Dose: 0.25 mg Documented By: Admin: 08/17/24 02:45 Dose: 0.25 mg Documented By: DEB Scopolamine (Scopolamine 1 Patch) 1 patch TOP Q72H CYNDI Last Admin: 08/18/24 08:49 Dose: 1 patch Documented By: SARAH Trazodone HCl (Trazodone 50 Mg Tablet) 300 mg PO BEDTIME CYNDI Last Admin: 08/18/24 20:00 Dose: 300 mg Documented By: Admin: 08/17/24 21:42 Dose: 300 mg Documented By: Admin: 08/17/24 02:45 Dose: 300 mg Documented By: DEB Discontinued Medications Albuterol/Ipratropium (Albuterol/Ipratropium 3 Ml Ampul) 3 ml INH NOW ONE Stop: 08/16/24 15:32 Last Admin: 08/16/24 15:40 Dose: 3 ml Documented By: JAN Hydromorphone HCl (Hydromorphone 0.5 Mg Inj) 0.5 mg IV NOW ONE Stop: 08/16/24 15:30 Last Admin: 08/16/24 16:36 Dose: 0.5 mg Documented By: SOPHIA Sodium Chloride (Normal Saline 0.9%) 1,000 mls @ 1,000 mls/hr IV BOLUS ONE Stop: 08/16/24 16:28 Last Infusion: 08/16/24 20:08 Dose: Infused Documented By: Admin: 08/16/24 18:41 Dose: 1,000 mls/hr Documented By: SOPHIA Ceftriaxone Sodium 1,000 mg/ (Sodium Chloride) 100 mls @ 200 mls/hr IV NOW ONE Stop: 08/16/24 20:43 Last Infusion: 08/16/24 21:36 Dose: Infused Documented By: Admin: 08/16/24 20:48 Dose: 200 mls/hr Documented By: SOPHIA Metronidazole (Flagyl) 500 mg in 100 mls @ 100 mls/hr IV NOW ONE Stop: 08/16/24 21:41 Last Admin: 08/17/24 00:47 Dose: 100 mls/hr Documented By: DEB Sodium Chloride (Normal Saline 0.9%) 1,000 mls @ 150 mls/hr IV CONT CYNDI Last Admin: 08/18/24 10:10 Dose: 150 mls/hr Documented By: Infusion: 08/18/24 08:11 Dose: Infused Documented By: Admin: 08/18/24 01:30 Dose: 150 mls/hr Documented By: Infusion: 08/17/24 15:05 Dose: Infused Documented By: Admin: 08/17/24 08:24 Dose: 150 mls/hr Documented By: Infusion: 08/17/24 07:27 Dose: Infused Documented By: Admin: 08/17/24 00:46 Dose: 150 mls/hr Documented By: DEB Methylprednisolone (Methylprednisolone 125 Mg/2 Ml Vial) 125 mg IV NOW ONE Stop: 08/16/24 15:32 Last Admin: 08/16/24 16:37 Dose: 125 mg Documented By: SOPHIA Ondansetron HCl (Ondansetron 4 Mg/2 Ml Inj) 4 mg IV NOW ONE Stop: 08/16/24 15:30 Last Admin: 08/16/24 16:37 Dose: 4 mg Documented By: SOPHIA Scopolamine (Scopolamine 1 Patch) 1 patch TOP Q72H CYNDI Last Admin: 08/18/24 08:42 Dose: 1 patch Documented By: Admin: 08/17/24 02:46 Dose: Not Given Documented By: DEB Vital Signs Vital signs: Vital Signs - 8 hr 08/16/24 16:00 08/16/24 16:22 08/16/24 16:22 Temperature 98.0 F Pulse Rate 77 Respiratory Rate 18 Blood Pressure 123/57 L Pulse Oximetry 99 95 Oxygen Delivery Method Room Air 08/16/24 16:30 08/16/24 16:30 08/16/24 17:00 Temperature Pulse Rate 92 H 78 Respiratory Rate 30 H 25 H Blood Pressure 123/58 L Pulse Oximetry 100 Oxygen Delivery Method 08/16/24 17:30 08/16/24 18:00 08/16/24 18:30 Temperature Pulse Rate 94 H 69 68 Respiratory Rate 12 13 Blood Pressure Pulse Oximetry 93 97 99 Oxygen Delivery Method 08/16/24 18:40 08/16/24 18:40 Temperature Pulse Rate 74 Respiratory Rate Blood Pressure 120/69 Pulse Oximetry 96 Oxygen Delivery Method MDM - URI/Sore Throat <Bobbi Merrill PA-C - Last Filed: 08/16/24 19:42> Medical Records Attestation: I reviewed the patient's medical records. Medical records narrative: 03/20/24 pyelo Lab Data 08/18/24 05:10 08/19/24 06:17 Labs: Lab Results 08/16/24 08/16/24 08/16/24 Range/Units 14:00 14:50 14:59 WBC (4.5-11.0) X10^3/uL RBC (4.0-5.2) X10^6/uL Hgb (12.0-16.0) g/dL Hct (36-46) % MCV (80-100) fL MCH (26-34) PG MCHC (30-36) % RDW (11.6-14.8) % Plt Count (150-400) X10^3/uL Neut % (Auto) (50-75) % Lymph % (Auto) (25-40) % [place] % (Auto) (3-14) % Eos % (Auto) (2-4) % Baso % (Auto) (0-2) % Neut # (Auto) (0587-7062) /uL Lymph # (Auto) (4436-6511) /uL [place] # (Auto) (0-900) /uL Eos # (Auto) (0-450) /uL Baso # (Auto) (0-100) /uL Sodium (137-145) mmol/L Potassium (3.4-5.1) mmol/L Chloride (98-107) mmol/L Carbon Dioxide (22-32) mmol/L BUN (7-17) mg/dL Creatinine (0.52-1.04) mg/dL Estimated GFR (>60) mL/min BUN/Creatinine Ratio (6-22) Glucose (80-110) mg/dL Lactate (0.7-2.1) mmol/L Calcium (8.4-10.2) mg/dL Magnesium (1.6-2.3) mg/dL Total Bilirubin (0.2-1.3) mg/dL AST (14-36) IU/L ALT (<35) IU/L Alkaline Phosphatase (38-126) U/L Total Creatine Kinase (30-135) U/L Troponin I (0.01-0.034) ng/mL Total Protein (6.3-8.2) g/dL Albumin (3.5-5.0) g/dL Globulin (1.7-4.1) g/dL Albumin/Globulin Ratio (1.0-2.8) Lipase (23-300) U/L Procalcitonin (<0.5) ng/mL Urine RBC None seen (0-5/HPF) Urine WBC 1-5/hpf (0-5/HPF) Ur Squamous Epith Cells 1-5 /hpf (0-5/HPF) Urine Bacteria Few (2-10) H (None) Hyaline Casts 1-5/lpf (None) Ur Culture Indicated? Cult not indicated Vol Urine Centrifuged Low vol <10ml (spun) A Stl C. cayetanensis PCR Not detected (Not Detect) Stool Rotavirus (PCR) Not detected (Not Detect) Stool Adenovirus (PCR) Not detected (Not Detect) Stool Astrovirus (PCR) Not detected (Not Detect) Stool Cryptosporidium PCR Not detected (Not Detect) Stl E.coli Shiga Tox PCR Not detected (Not Detect) St Sh/Enteroin Ecoli PCR Not detected (Not Detect) Stl Enterotoxigenic E PCR Not detected (Not Detect) Stool EPEC (PCR) Not detected (Not Detect) Stl E. histolytica PCR Not detected (Not Detect) Stool Giardia Lamblia PCR Not detected (Not Detect) Stool Sapovirus (PCR) Not detected (Not Detect) Stl P. shigelloides PCR Not detected (Not Detect) St Y.enterocolitica PCR Not detected (Not Detect) Stool Vibrio (PCR) Not detected (Not Detect) Stl Vibrio cholerae PCR Not detected (Not Detect) Stl Enteroaggr Ecoli PCR Not detected (Not Detect) Stl Norovirus GI/GII PCR Not detected (Not Detect) Campylobacter (PCR) Not detected (Not Detect) C. difficile Tox (PCR) Not detected (Not Detect) SARS-CoV-2 (PCR) Negative (Negative) Influenza A (RT-PCR) Flu a negative (NEGATIVE) Influenza B (RT-PCR) Flu b negative (NEGATIVE) RSV (PCR) Negative (Negative) Salmonella (PCR) Not detected (Not Detect) 08/16/24 Range/Units 18:15 WBC 3.9 L (4.5-11.0) X10^3/uL RBC 3.64 L (4.0-5.2) X10^6/uL Hgb 11.9 L (12.0-16.0) g/dL Hct 36.8 (36-46) % MCV 101.3 H (80-100) fL MCH 32.6 (26-34) PG MCHC 32.2 (30-36) % RDW 13.1 (11.6-14.8) % Plt Count 263 (150-400) X10^3/uL Neut % (Auto) 68.9 (50-75) % Lymph % (Auto) 24.2 L (25-40) % Hudson % (Auto) 6.1 (3-14) % Eos % (Auto) 0.4 L (2-4) % Baso % (Auto) 0.4 (0-2) % Neut # (Auto) 2700 (8503-3331) /uL Lymph # (Auto) 900 L (0856-0301) /uL Hudson # (Auto) 200 (0-900) /uL Eos # (Auto) 0 (0-450) /uL Baso # (Auto) 0 (0-100) /uL Sodium 134 L (137-145) mmol/L Potassium 4.4 (3.4-5.1) mmol/L Chloride 108 H (98-107) mmol/L Carbon Dioxide 13 L (22-32) mmol/L BUN 43 H (7-17) mg/dL Creatinine 1.60 H (0.52-1.04) mg/dL Estimated GFR 34 L (>60) mL/min BUN/Creatinine Ratio 26.9 H (6-22) Glucose 100 (80-110) mg/dL Lactate 1.8 (0.7-2.1) mmol/L Calcium 8.9 (8.4-10.2) mg/dL Magnesium 2.5 H (1.6-2.3) mg/dL Total Bilirubin 0.4 (0.2-1.3) mg/dL AST 27 (14-36) IU/L ALT 15 (<35) IU/L Alkaline Phosphatase 107 (38-126) U/L Total Creatine Kinase 23 L (30-135) U/L Troponin I < 0.012 (0.01-0.034) ng/mL Total Protein 6.9 (6.3-8.2) g/dL Albumin 3.7 (3.5-5.0) g/dL Globulin 3.2 (1.7-4.1) g/dL Albumin/Globulin Ratio 1.2 (1.0-2.8) Lipase 2728 H (23-300) U/L Procalcitonin 0.100 (<0.5) ng/mL Urine RBC (0-5/HPF) Urine WBC (0-5/HPF) Ur Squamous Epith Cells (0-5/HPF) Urine Bacteria (None) Hyaline Casts (None) Ur Culture Indicated? Vol Urine Centrifuged Stl C. cayetanensis PCR (Not Detect) Stool Rotavirus (PCR) (Not Detect) Stool Adenovirus (PCR) (Not Detect) Stool Astrovirus (PCR) (Not Detect) Stool Cryptosporidium PCR (Not Detect) Stl E.coli Shiga Tox PCR (Not Detect) St Sh/Enteroin Ecoli PCR (Not Detect) Stl Enterotoxigenic E PCR (Not Detect) Stool EPEC (PCR) (Not Detect) Stl E. histolytica PCR (Not Detect) Stool Giardia Lamblia PCR (Not Detect) Stool Sapovirus (PCR) (Not Detect) Stl P. shigelloides PCR (Not Detect) St Y.enterocolitica PCR (Not Detect) Stool Vibrio (PCR) (Not Detect) Stl Vibrio cholerae PCR (Not Detect) Stl Enteroaggr Ecoli PCR (Not Detect) Stl Norovirus GI/GII PCR (Not Detect) Campylobacter (PCR) (Not Detect) C. difficile Tox (PCR) (Not Detect) SARS-CoV-2 (PCR) (Negative) Influenza A (RT-PCR) (NEGATIVE) Influenza B (RT-PCR) (NEGATIVE) RSV (PCR) (Negative) Salmonella (PCR) (Not Detect) Urine Dip Bedside Urine Glucose Negative Bedside Urine Bilirubin - Negative Bedside Urine Ketone - Negative Urine Specific [place] 1.020 Bedside Urine Occult Blood - Negative Bedside Urine pH 6.0 Bedside Urine Protein +/- 15 Bedside Urine Urobilinogen - Negative Bedside Urine Nitrite - Negative Bedside Urine Leukocytes - Negative Esterase MDM Narrative Medical decision making narrative: 73-year-old female with a past medical history of ulcerative colitis s/p total colectomy 1992 now with J pouch, Crohn's disease on daily steroids, asthma, bipolar, HTN, who presents to the emergency department for abdominal pain, nausea, vomiting, diarrhea x1 week, weakness and cough x1 month. Differential diagnosis includes but is not limited to gastroenteritis, infectious diarrhea, inflammatory bowel disease flare, dehydration, electrolyte abnormality, UTI, pyelonephritis, mesenteric ischemia, bowel obstruction, viral syndrome, etc. On exam the patient is in no acute distress however she is ill-appearing. She is complaining of diffuse abdominal pain and abdominal tenderness. She had multiple episodes of diarrhea in the ED bathroom with a watery stool. Vital signs in triage are stable with a blood pressure of 123/57, pulse 77, temp 98?, O2 sat 95. she does have inspiratory and expiratory wheezing on exam with a history of asthma. Viral swab and chest x-ray obtained in triage and both negative. We will proceed with Solu-Medrol and DuoNeb for wheezing, Dilaudid Zofran and fluids for pain and nausea vomiting/diarrhea. We will check abdominal labs, GI panel, CT abdomen and pelvis with IV contrast. Patient is extremely uncomfortable in fast track, we will move to main emergency Department for higher level of care, ED attending Dr. Josue consulted. 5:[address] Josue: Sign out from physician team assistant Bobbi, patient here in the main department now for sepsis workup. IV access being attempted now. Sepsis laboratory studies ordered as well as CT images as well as fluids and antiemetics. 5:05 p.m.. Introduced myself to patient. She does understand IV access trying to be attempted and will provide medications for relief. 6:[address] Josue:s/o to dr jolley, laboratory studies are pending. Patient may need admission for dehydration/acute renal injury/sepsis <Jaycob Josue MD - Last Filed: 08/19/24 07:31> Lab Data Labs: Lab Results 08/16/24 08/16/24 08/16/24 Range/Units 14:00 14:50 14:59 WBC (4.5-11.0) X10^3/uL RBC (4.0-5.2) X10^6/uL Hgb (12.0-16.0) g/dL Hct (36-46) % MCV (80-100) fL MCH (26-34) PG MCHC (30-36) % RDW (11.6-14.8) % Plt Count (150-400) X10^3/uL Neut % (Auto) (50-75) % Lymph % (Auto) (25-40) % Hudson % (Auto) (3-14) % Eos % (Auto) (2-4) % Baso % (Auto) (0-2) % Neut # (Auto) (5740-3386) /uL Lymph # (Auto) (8349-3752) /uL Hudson # (Auto) (0-900) /uL Eos # (Auto) (0-450) /uL Baso # (Auto) (0-100) /uL Sodium (137-145) mmol/L Potassium (3.4-5.1) mmol/L Chloride (98-107) mmol/L Carbon Dioxide (22-32) mmol/L BUN (7-17) mg/dL Creatinine (0.52-1.04) mg/dL Estimated GFR (>60) mL/min BUN/Creatinine Ratio (6-22) Glucose (80-110) mg/dL Lactate (0.7-2.1) mmol/L Calcium (8.4-10.2) mg/dL Magnesium (1.6-2.3) mg/dL Total Bilirubin (0.2-1.3) mg/dL AST (14-36) IU/L ALT (<35) IU/L Alkaline Phosphatase (38-126) U/L Total Creatine Kinase (30-135) U/L Troponin I (0.01-0.034) ng/mL Total Protein (6.3-8.2) g/dL Albumin (3.5-5.0) g/dL Globulin (1.7-4.1) g/dL Albumin/Globulin Ratio (1.0-2.8) Lipase (23-300) U/L Procalcitonin (<0.5) ng/mL Urine RBC None seen (0-5/HPF) Urine WBC 1-5/hpf (0-5/HPF) Ur Squamous Epith Cells 1-5 /hpf (0-5/HPF) Urine Bacteria Few (2-10) H (None) Hyaline Casts 1-5/lpf (None) Ur Culture Indicated? Cult not indicated Vol Urine Centrifuged Low vol <10ml (spun) A Stl C. cayetanensis PCR Not detected (Not Detect) Stool Rotavirus (PCR) Not detected (Not Detect) Stool Adenovirus (PCR) Not detected (Not Detect) Stool Astrovirus (PCR) Not detected (Not Detect) Stool Cryptosporidium PCR Not detected (Not Detect) Stl E.coli Shiga Tox PCR Not detected (Not Detect) St Sh/Enteroin Ecoli PCR Not detected (Not Detect) Stl Enterotoxigenic E PCR Not detected (Not Detect) Stool EPEC (PCR) Not detected (Not Detect) Stl E. histolytica PCR Not detected (Not Detect) Stool Giardia Lamblia PCR Not detected (Not Detect) Stool Sapovirus (PCR) Not detected (Not Detect) Stl P. shigelloides PCR Not detected (Not Detect) St Y.enterocolitica PCR Not detected (Not Detect) Stool Vibrio (PCR) Not detected (Not Detect) Stl Vibrio cholerae PCR Not detected (Not Detect) Stl Enteroaggr Ecoli PCR Not detected (Not Detect) Stl Norovirus GI/GII PCR Not detected (Not Detect) Campylobacter (PCR) Not detected (Not Detect) C. difficile Tox (PCR) Not detected (Not Detect) SARS-CoV-2 (PCR) Negative (Negative) Influenza A (RT-PCR) Flu a negative (NEGATIVE) Influenza B (RT-PCR) Flu b negative (NEGATIVE) RSV (PCR) Negative (Negative) Salmonella (PCR) Not detected (Not Detect) 08/16/24 Range/Units 18:15 WBC 3.9 L (4.5-11.0) X10^3/uL RBC 3.64 L (4.0-5.2) X10^6/uL Hgb 11.9 L (12.0-16.0) g/dL Hct 36.8 (36-46) % MCV 101.3 H (80-100) fL MCH 32.6 (26-34) PG MCHC 32.2 (30-36) % RDW 13.1 (11.6-14.8) % Plt Count 263 (150-400) X10^3/uL Neut % (Auto) 68.9 (50-75) % Lymph % (Auto) 24.2 L (25-40) % [place] % (Auto) 6.1 (3-14) % Eos % (Auto) 0.4 L (2-4) % Baso % (Auto) 0.4 (0-2) % Neut # (Auto) 2700 (5114-2667) /uL Lymph # (Auto) 900 L (0018-4166) /uL [place] # (Auto) 200 (0-900) /uL Eos # (Auto) 0 (0-450) /uL Baso # (Auto) 0 (0-100) /uL Sodium 134 L (137-145) mmol/L Potassium 4.4 (3.4-5.1) mmol/L Chloride 108 H (98-107) mmol/L Carbon Dioxide 13 L (22-32) mmol/L BUN 43 H (7-17) mg/dL Creatinine 1.60 H (0.52-1.04) mg/dL Estimated GFR 34 L (>60) mL/min BUN/Creatinine Ratio 26.9 H (6-22) Glucose 100 (80-110) mg/dL Lactate 1.8 (0.7-2.1) mmol/L Calcium 8.9 (8.4-10.2) mg/dL Magnesium 2.5 H (1.6-2.3) mg/dL Total Bilirubin 0.4 (0.2-1.3) mg/dL AST 27 (14-36) IU/L ALT 15 (<35) IU/L Alkaline Phosphatase 107 (38-126) U/L Total Creatine Kinase 23 L (30-135) U/L Troponin I < 0.012 (0.01-0.034) ng/mL Total Protein 6.9 (6.3-8.2) g/dL Albumin 3.7 (3.5-5.0) g/dL Globulin 3.2 (1.7-4.1) g/dL Albumin/Globulin Ratio 1.2 (1.0-2.8) Lipase 2728 H (23-300) U/L Procalcitonin 0.100 (<0.5) ng/mL Urine RBC (0-5/HPF) Urine WBC (0-5/HPF) Ur Squamous Epith Cells (0-5/HPF) Urine Bacteria (None) Hyaline Casts (None) Ur Culture Indicated? Vol Urine Centrifuged Stl C. cayetanensis PCR (Not Detect) Stool Rotavirus (PCR) (Not Detect) Stool Adenovirus (PCR) (Not Detect) Stool Astrovirus (PCR) (Not Detect) Stool Cryptosporidium PCR (Not Detect) Stl E.coli Shiga Tox PCR (Not Detect) St Sh/Enteroin Ecoli PCR (Not Detect) Stl Enterotoxigenic E PCR (Not Detect) Stool EPEC (PCR) (Not Detect) Stl E. histolytica PCR (Not Detect) Stool Giardia Lamblia PCR (Not Detect) Stool Sapovirus (PCR) (Not Detect) Stl P. shigelloides PCR (Not Detect) St Y.enterocolitica PCR (Not Detect) Stool Vibrio (PCR) (Not Detect) Stl Vibrio cholerae PCR (Not Detect) Stl Enteroaggr Ecoli PCR (Not Detect) Stl Norovirus GI/GII PCR (Not Detect) Campylobacter (PCR) (Not Detect) C. difficile Tox (PCR) (Not Detect) SARS-CoV-2 (PCR) (Negative) Influenza A (RT-PCR) (NEGATIVE) Influenza B (RT-PCR) (NEGATIVE) RSV (PCR) (Negative) Salmonella (PCR) (Not Detect) Urine Dip Bedside Urine Glucose Negative Bedside Urine Bilirubin - Negative Bedside Urine Ketone - Negative Urine Specific [place] 1.020 Bedside Urine Occult Blood - Negative Bedside Urine pH 6.0 Bedside Urine Protein +/- 15 Bedside Urine Urobilinogen - Negative Bedside Urine Nitrite - Negative Bedside Urine Leukocytes - Negative Esterase MDM Narrative Medical decision making narrative: 73-year-old female with a past medical history of ulcerative colitis s/p total colectomy 1993 now with J pouch, Crohn's disease on daily steroids, asthma, bipolar, HTN, who presents to the emergency department for abdominal pain, nausea, vomiting, diarrhea x1 week, weakness and cough x1 month. Differential diagnosis includes but is not limited to gastroenteritis, infectious diarrhea, inflammatory bowel disease flare, dehydration, electrolyte abnormality, UTI, pyelonephritis, mesenteric ischemia, bowel obstruction, viral syndrome, etc. On exam the patient is in no acute distress however she is ill-appearing. She is complaining of diffuse abdominal pain and abdominal tenderness. She had multiple episodes of diarrhea in the ED bathroom with a watery stool. Vital signs in triage are stable with a blood pressure of 123/57, pulse 77, temp 98?, O2 sat 95. she does have inspiratory and expiratory wheezing on exam with a history of asthma. Viral swab and chest x-ray obtained in triage and both negative. We will proceed with Solu-Medrol and DuoNeb for wheezing, Dilaudid Zofran and fluids for pain and nausea vomiting/diarrhea. We will check abdominal labs, GI panel, CT abdomen and pelvis with IV contrast. Patient is extremely uncomfortable and fast track, we will move to main emergency Department for higher level of care, ED attending Dr. Josue consulted. 5:[address] Josue: Sign out from physician team assistant Bobbi, patient here in the main department now for sepsis workup. IV access being attempted now. Sepsis laboratory studies ordered as well as CT images as well as fluids and antiemetics. 5:05 p.m.. Introduced myself to patient. She does understand IV access trying to be attempted and will provide medications for relief. 6:[address] Josue:s/o to dr jolley, laboratory studies are pending. Patient may need admission for dehydration/acute renal injury/sepsis <Jt Jolley MD - Last Filed: 08/16/24 22:24> Lab Data Labs: Lab Results 08/16/24 08/16/24 08/16/24 Range/Units 14:00 14:50 14:59 WBC (4.5-11.0) X10^3/uL RBC (4.0-5.2) X10^6/uL Hgb (12.0-16.0) g/dL Hct (36-46) % MCV (80-100) fL MCH (26-34) PG MCHC (30-36) % RDW (11.6-14.8) % Plt Count (150-400) X10^3/uL Neut % (Auto) (50-75) % Lymph % (Auto) (25-40) % [place] % (Auto) (3-14) % Eos % (Auto) (2-4) % Baso % (Auto) (0-2) % Neut # (Auto) (9587-1318) /uL Lymph # (Auto) (1189-3037) /uL [place] # (Auto) (0-900) /uL Eos # (Auto) (0-450) /uL Baso # (Auto) (0-100) /uL Sodium (137-145) mmol/L Potassium (3.4-5.1) mmol/L Chloride (98-107) mmol/L Carbon Dioxide (22-32) mmol/L BUN (7-17) mg/dL Creatinine (0.52-1.04) mg/dL Estimated GFR (>60) mL/min BUN/Creatinine Ratio (6-22) Glucose (80-110) mg/dL Lactate (0.7-2.1) mmol/L Calcium (8.4-10.2) mg/dL Magnesium (1.6-2.3) mg/dL Total Bilirubin (0.2-1.3) mg/dL AST (14-36) IU/L ALT (<35) IU/L Alkaline Phosphatase (38-126) U/L Total Creatine Kinase (30-135) U/L Troponin I (0.01-0.034) ng/mL Total Protein (6.3-8.2) g/dL Albumin (3.5-5.0) g/dL Globulin (1.7-4.1) g/dL Albumin/Globulin Ratio (1.0-2.8) Lipase (23-300) U/L Procalcitonin (<0.5) ng/mL Urine RBC None seen (0-5/HPF) Urine WBC 1-5/hpf (0-5/HPF) Ur Squamous Epith Cells 1-5 /hpf (0-5/HPF) Urine Bacteria Few (2-10) H (None) Hyaline Casts 1-5/lpf (None) Ur Culture Indicated? Cult not indicated Vol Urine Centrifuged Low vol <10ml (spun) A Stl C. cayetanensis PCR Not detected (Not Detect) Stool Rotavirus (PCR) Not detected (Not Detect) Stool Adenovirus (PCR) Not detected (Not Detect) Stool Astrovirus (PCR) Not detected (Not Detect) Stool Cryptosporidium PCR Not detected (Not Detect) Stl E.coli Shiga Tox PCR Not detected (Not Detect) St Sh/Enteroin Ecoli PCR Not detected (Not Detect) Stl Enterotoxigenic E PCR Not detected (Not Detect) Stool EPEC (PCR) Not detected (Not Detect) Stl E. histolytica PCR Not detected (Not Detect) Stool Giardia Lamblia PCR Not detected (Not Detect) Stool Sapovirus (PCR) Not detected (Not Detect) Stl P. shigelloides PCR Not detected (Not Detect) St Y.enterocolitica PCR Not detected (Not Detect) Stool Vibrio (PCR) Not detected (Not Detect) Stl Vibrio cholerae PCR Not detected (Not Detect) Stl Enteroaggr Ecoli PCR Not detected (Not Detect) Stl Norovirus GI/GII PCR Not detected (Not Detect) Campylobacter (PCR) Not detected (Not Detect) C. difficile Tox (PCR) Not detected (Not Detect) SARS-CoV-2 (PCR) Negative (Negative) Influenza A (RT-PCR) Flu a negative (NEGATIVE) Influenza B (RT-PCR) Flu b negative (NEGATIVE) RSV (PCR) Negative (Negative) Salmonella (PCR) Not detected (Not Detect) 08/16/24 Range/Units 18:15 WBC 3.9 L (4.5-11.0) X10^3/uL RBC 3.64 L (4.0-5.2) X10^6/uL Hgb 11.9 L (12.0-16.0) g/dL Hct 36.8 (36-46) % MCV 101.3 H (80-100) fL MCH 32.6 (26-34) PG MCHC 32.2 (30-36) % RDW 13.1 (11.6-14.8) % Plt Count 263 (150-400) X10^3/uL Neut % (Auto) 68.9 (50-75) % Lymph % (Auto) 24.2 L (25-40) % Hudson % (Auto) 6.1 (3-14) % Eos % (Auto) 0.4 L (2-4) % Baso % (Auto) 0.4 (0-2) % Neut # (Auto) 2700 (4174-7389) /uL Lymph # (Auto) 900 L (5877-7425) /uL Hudson # (Auto) 200 (0-900) /uL Eos # (Auto) 0 (0-450) /uL Baso # (Auto) 0 (0-100) /uL Sodium 134 L (137-145) mmol/L Potassium 4.4 (3.4-5.1) mmol/L Chloride 108 H (98-107) mmol/L Carbon Dioxide 13 L (22-32) mmol/L BUN 43 H (7-17) mg/dL Creatinine 1.60 H (0.52-1.04) mg/dL Estimated GFR 34 L (>60) mL/min BUN/Creatinine Ratio 26.9 H (6-22) Glucose 100 (80-110) mg/dL Lactate 1.8 (0.7-2.1) mmol/L Calcium 8.9 (8.4-10.2) mg/dL Magnesium 2.5 H (1.6-2.3) mg/dL Total Bilirubin 0.4 (0.2-1.3) mg/dL AST 27 (14-36) IU/L ALT 15 (<35) IU/L Alkaline Phosphatase 107 (38-126) U/L Total Creatine Kinase 23 L (30-135) U/L Troponin I < 0.012 (0.01-0.034) ng/mL Total Protein 6.9 (6.3-8.2) g/dL Albumin 3.7 (3.5-5.0) g/dL Globulin 3.2 (1.7-4.1) g/dL Albumin/Globulin Ratio 1.2 (1.0-2.8) Lipase 2728 H (23-300) U/L Procalcitonin 0.100 (<0.5) ng/mL Urine RBC (0-5/HPF) Urine WBC (0-5/HPF) Ur Squamous Epith Cells (0-5/HPF) Urine Bacteria (None) Hyaline Casts (None) Ur Culture Indicated? Vol Urine Centrifuged Stl C. cayetanensis PCR (Not Detect) Stool Rotavirus (PCR) (Not Detect) Stool Adenovirus (PCR) (Not Detect) Stool Astrovirus (PCR) (Not Detect) Stool Cryptosporidium PCR (Not Detect) Stl E.coli Shiga Tox PCR (Not Detect) St Sh/Enteroin Ecoli PCR (Not Detect) Stl Enterotoxigenic E PCR (Not Detect) Stool EPEC (PCR) (Not Detect) Stl E. histolytica PCR (Not Detect) Stool Giardia Lamblia PCR (Not Detect) Stool Sapovirus (PCR) (Not Detect) Stl P. shigelloides PCR (Not Detect) St Y.enterocolitica PCR (Not Detect) Stool Vibrio (PCR) (Not Detect) Stl Vibrio cholerae PCR (Not Detect) Stl Enteroaggr Ecoli PCR (Not Detect) Stl Norovirus GI/GII PCR (Not Detect) Campylobacter (PCR) (Not Detect) C. difficile Tox (PCR) (Not Detect) SARS-CoV-2 (PCR) (Negative) Influenza A (RT-PCR) (NEGATIVE) Influenza B (RT-PCR) (NEGATIVE) RSV (PCR) (Negative) Salmonella (PCR) (Not Detect) Urine Dip Bedside Urine Glucose Negative Bedside Urine Bilirubin - Negative Bedside Urine Ketone - Negative Urine Specific [place] 1.020 Bedside Urine Occult Blood - Negative Bedside Urine pH 6.0 Bedside Urine Protein +/- 15 Bedside Urine Urobilinogen - Negative Bedside Urine Nitrite - Negative Bedside Urine Leukocytes - Negative Esterase MDM Narrative Medical decision making narrative: 73-year-old female with a past medical history of ulcerative colitis s/p total colectomy 1992 now with J pouch, Crohn's disease on daily steroids, asthma, bipolar, HTN, who presents to the emergency department for abdominal pain, nausea, vomiting, diarrhea x1 week, weakness and cough x1 month. Differential diagnosis includes but is not limited to gastroenteritis, infectious diarrhea, inflammatory bowel disease flare, dehydration, electrolyte abnormality, UTI, pyelonephritis, mesenteric ischemia, bowel obstruction, viral syndrome, etc. On exam the patient is in no acute distress however she is ill-appearing. She is complaining of diffuse abdominal pain and abdominal tenderness. She had multiple episodes of diarrhea in the ED bathroom with a watery stool. Vital signs in triage are stable with a blood pressure of 123/57, pulse 77, temp 98?, O2 sat 95. she does have inspiratory and expiratory wheezing on exam with a history of asthma. Viral swab and chest x-ray obtained in triage and both negative. We will proceed with Solu-Medrol and DuoNeb for wheezing, Dilaudid Zofran and fluids for pain and nausea vomiting/diarrhea. We will check abdominal labs, GI panel, CT abdomen and pelvis with IV contrast. Patient is extremely uncomfortable in fast track, we will move to main emergency Department for higher level of care, ED attending Dr. Josue consulted. 5:[address] Josue: Sign out from physician team assistant Bobbi, patient here in the main department now for sepsis workup. IV access being attempted now. Sepsis laboratory studies ordered as well as CT images as well as fluids and antiemetics. 5:05 p.m.. Introduced myself to patient. She does understand IV access trying to be attempted and will provide medications for relief. 6:[address] Josue:s/o to dr jolley, laboratory studies are pending. Patient may need admission for dehydration/acute renal injury/sepsis - I evaluated patient's lab work which includes a significantly elevated lipase in the 2 thousands, as well as the results of her CT imaging which shows a distended and enlarged gallbladder with a stone. Patient's common bile duct found to be 6 mm however she also has no elevations in her liver enzymes, alkaline phosphatase or bilirubin. I discussed the case with the on-call surgeon about whether or not the patient would require transfer for ERCP or given reassuring labs was a candidate to stay for MRCP, antibiotics and surgical evaluation. Surgical team states that patient can stay here, obtain an MRCP in the morning and that they will take out the gallbladder once the pancreatitis has improved. - The patient received dose of ceftriaxone and metronidazole -Jt Jolley Discharge Plan Departure Patient Disposition: Admitted As Inpatient Clinical Impression: Acute cholecystitis Admit Date/Time: 08/16/24 20:57 Admit Provider: Filiberto Munoz ED Sign-out <Jaycob Josue MD - Last Filed: 08/19/24 07:31> Cosign ED Attending Cosignature Attestation: I was immediately available in the department for consultation. ?This documentation has been reviewed and I agree with assessment and plan. Supervised by Jaycob Josue MD
[2024-08-16 15:30] LABS: Urine Volume Low Vol <10mL (spun)
--- NOTE | 2024-08-16 15:30 | DI.CT.S_ITS ---
PROCEDURE: CT ABDOMEN PELVIS W CON INDICATIONS: diffuse abd pain; N/V/D; hx colectomy TECHNIQUE: After the administration of intravenous contrast, axial sections acquired from the lung bases to the pubic symphysis. Coronal and sagittal reformats were performed. For radiation dose reduction, the following was used: automated exposure control, adjustment of mA and/or kV according to patient size. COMPARISON: [facility], CT, CT ABDOMEN PELVIS W CON, 03/20/2024, 14:13. FINDINGS: Image quality: Diagnostic Lower chest: Unremarkable lung bases Coronary calcifications. Small hiatal hernia and GE junction postsurgical changes. Liver: Unremarkable Gallbladder and biliary system: Suspect cholelithiasis and gallbladder distention. CBD is prominent at 6 millimeters. Pancreas: Mildly ectatic duct at 3 millimeters Spleen: Nonenlarged Adrenals: No discrete nodules Kidneys: Many presumed renal cysts. Subcentimeter lesions are too small to characterize, usually also cysts. These are indeterminate however on CT. Consider nonurgent ultrasound to ensure there are no solid masses. No hydronephrosis. Vessels and lymph nodes: The main portal vein is patent. No abdominal aortic aneurysm. No pathologic lymphadenopathy by size criteria. Atherosclerotic calcifications are seen. Bowel and peritoneum: No small bowel obstruction. Mild diffuse colonic and distal small bowel wall thickening. There is scattered colonic suture lines. No pathologic ascites or drainable abscess. Liquid colonic contents are seen distally. Body wall: Unremarkable Pelvis: Bladder is unremarkable. Uterus is not seen. Bones: There are degenerative changes. Left proximal femur fixation hardware. Left pubic nonacute deformities. Similar L2 compression deformity. IMPRESSION: Prominent fluid-filled mildly thick wall loops of distal small bowel and colon, likely enterocolitis. Colonic postsurgical changes. No high-grade obstruction. Small hiatal hernia with mild wall thickening also seen, with postsurgical changes. Suspect cholelithiasis and gallbladder distention. Soft tissue thickening is possible but less likely. Correlate ultrasound. Mildly prominent CBD at 6 millimeters, correlate LFTs. Other findings above. Dictated by: João Leslie M.D. on 08/16/2024 at 20:05 Approved by: João Leslie M.D. on 08/16/2024 at 20:09
[2024-08-16 15:32] LABS: Bacteria Urine Few (2-10); RBC Urine None Seen (0-5/HPF); Squamous Epithelial Cell Urine 1-5 /HPF (0-5/HPF); WBC Urine 1-5/HPF (0-5/HPF)
[2024-08-16 15:33] LABS: Culture Indicated Urine Cult Not Indicated; Hyaline Casts Urine 1-5/LPF
[2024-08-16] MEDS: ALBUTEROL/IPRATROPIUM 3 ML AMPUL INH (15:40)
[2024-08-16 16:29] LABS: Adenovirus F 40/41 Not Detected (Not Detect); Astrovirus Not Detected (Not Detect); Campylobacter Not Detected (Not Detect); Clostridium difficile toxin AB Not Detected (Not Detect); Cryptosporidium Not Detected (Not Detect); Cyclospora cayetanensis Not Detected (Not Detect); Entamoeba histolytica Not Detected (Not Detect); Enteroaggregative E.coli Not Detected (Not Detect); Enteropathogenic E.coli Not Detected (Not Detect); Enterotoxigenic E.coli It/st Not Detected (Not Detect); Giardia lamblia Not Detected (Not Detect); Norovirus GI/GII Not Detected (Not Detect); Plesiomonsa shigelloides Not Detected (Not Detect); Rotavirus A Not Detected (Not Detect); Salmonella Not Detected (Not Detect); Sapovirus Not Detected (Not Detect); Shiga-like toxin-prod E.coli Not Detected (Not Detect); Shigella/Enteroinvasive E.coli Not Detected (Not Detect); Vibrio Not Detected (Not Detect); Vibrio cholerae Not Detected (Not Detect); Yersinia enterocolitica Not Detected (Not Detect)
[2024-08-16] MEDS: HYDROMORPHONE 0.5 MG INJ IV (16:36)
[2024-08-16] MEDS: methylPREDNISolone 125 MG/2 ML VIAL IV (16:37)
[2024-08-16] MEDS: ONDANSETRON 4 MG/2 ML INJ IV (16:37)
--- NOTE | 2024-08-16 17:16 | EKG_ITS ---
[address] [address] Test Date: 2024-08-16 Pat Name: Shikha Watkins Department: [facility] Room: Gender: Female Data Review Specialist: TODD : 1950 Requested By: Order Number: [id number] Reading MD: Zane Bowie Measurements Intervals [place] Rate: 67 P: 31 RI: 148 QRS: 54 QRSD: 82 T: 60 QT: 392 QTc: 414 Interpretive Statements Sinus rhythm with occasional premature ventricular complexes Electronically Signed On 08-18-2024 18:56:26 PST by Zane Bowie
[2024-08-16 18:33] LABS: Add Manual Diff / Slide Review NO; Basophils Absolute Auto 0 /uL (0-100); Basophils Percent Auto 0.4 % (0-2); Eosinophils Absolute Auto 0 /uL (0-450); Eosinophils Percent Auto 0.4 % (2-4); Hematocrit 36.8 % (36-46); Hemoglobin 11.9 g/dL (12.0-16.0); Lymphocytes Absolute Auto 900 /uL (1100-4500); Lymphocytes Percent Auto 24.2 % (25-40); Mean Corpuscular HGB Conc 32.2 % (30-36); Mean Corpuscular Hemoglobin 32.6 PG (26-34); Mean Corpuscular Volume 101.3 fL (80-100); Monocytes Absolute Auto 200 /uL (0-900); Monocytes Percent Auto 6.1 % (3-14); Neutrophils Absolute Auto 2700 /uL (1500-7000); Neutrophils Percent Auto 68.9 % (50-75); Platelet Count 263 X10^3/uL (150-400); Red Blood Cell Count 3.64 X10^6/uL (4.0-5.2); Red Cell Distribution Width 13.1 % (11.6-14.8); White Blood Cell Count 3.9 X10^3/uL (4.5-11.0)
[2024-08-16] MEDS: SODIUM CHLORIDE 0.9% 1,000 ML 1000 ML IV (18:41)
[2024-08-16 18:47] LABS: Creatine Kinase 23 U/L (30-135)
[2024-08-16 18:48] LABS: Lactate (Lactic Acid) 1.8 mmol/L (0.7-2.1)
[2024-08-16 18:49] LABS: Alanine Aminotransferase 15 IU/L (<35); Albumin 3.7 g/dL (3.5-5.0); Albumin Globulin Ratio 1.2 (1.0-2.8); Alkaline Phosphatase 107 U/L (38-126); Aspartate Aminotransferase 27 IU/L (14-36); BUN Creatinine Ratio 26.9 (6-22); Bilirubin Total 0.4 mg/dL (0.2-1.3); Blood Urea Nitrogen 43 mg/dL (7-17); Calcium 8.9 mg/dL (8.4-10.2); Carbon Dioxide 13 mmol/L (22-32); Chloride 108 mmol/L (98-107); Estimated Glomerular Filt Rate 34 mL/min (>60); Globulin 3.2 g/dL (1.7-4.1); Glucose 100 mg/dL (80-110); HEMOLYSIS < 15 (0-50); Potassium 4.4 mmol/L (3.4-5.1); Sodium 134 mmol/L (137-145); Total Protein 6.9 g/dL (6.3-8.2)
[2024-08-16 18:50] LABS: Magnesium 2.5 mg/dL (1.6-2.3)
[2024-08-16 19:00] LABS: Lipase 2728 U/L (23-300)
[2024-08-16 19:13] LABS: Troponin I < 0.012 ng/mL (0.01-0.034)
--- NOTE | 2024-08-16 20:08 | PC.NURSE ---
multiple attempts to obtain blood for cultures were made, lab tried several times, the iv does not draw well and clotted completely in syringe. Provider Samreen aware and okayed dc'ing order for cultures
[2024-08-16] MEDS: cefTRIAXone 1,000 MG in SODIUM CHLORIDE 0.9% 100 ML 200 MG IV (20:48)
[2024-08-16] MEDS: MORPHINE 2 MG/ML INJ IV (20:50)
--- NOTE | 2024-08-17 00:01 | DI.MRI.S_ITS ---
PROCEDURE: MR ABDOMEN WO/W CON INDICATIONS: gallstone pancreatitis. Stat interpretation requested TECHNIQUE: Coronal HASTE, axial 2D FLASH in- and [id number]; axial breath-hold T2 FSE with fat saturation from the hepatic dome to the iliac crests. Oblique coronal thin-slice and radial thick slab HASTE through the biliary system. Dynamic axial VIBE during administration of contrast. Post-contrast coronal VIBE or 2D FLASH with fat saturation from the hepatic dome to the iliac crests. Optional diffusion weighted imaging and ADC may be performed. COMPARISON: [facility], CT, CT ABDOMEN PELVIS W CON, 08/16/2024, 15:45. FINDINGS: Gallbladder: Distended. Cholelithiasis Biliary ducts: No choledocholithiasis. Proximal CBD measures 6 mm, and distal CBD 3 mm. Pancreas: No ductal dilation. No MR evidence of pancreatitis Liver: No solid mass. Spleen: Size is within normal limits. Kidneys and Ureters: No hydronephrosis. Bilateral simple renal cysts Stomach and Bowel: Unremarkable Peritoneum: No abnormal intraperitoneal fluid. No free air. Ventral Wall: No hernia. Abdominal Nodes: No retroperitoneal or mesenteric adenopathy by size criteria. Vessels: Aorta and inferior vena cava are normal in size. Bones: No aggressive osseous abnormality. IMPRESSION: Cholelithiasis. No evidence of pancreatitis by MR or on prior CT Approved by: Lobo Pablo M.D. on 08/17/2024 at 17:05
[2024-08-17] MEDS: MORPHINE 2 MG/ML INJ IV ×2 (00:43→06:32)
[2024-08-17] MEDS: SODIUM CHLORIDE 0.9% 1,000 ML 150 ML IV ×2 (00:46→08:24)
[2024-08-17] MEDS: metroNIDAZOLE 500 MG/100 ML PIGGYBACK 100 MG IV ×3 (00:47→23:49)
[2024-08-17 00:56] VITALS: BP 98/53; PULSE 58; RESP 16; TEMP 36.5; O2SAT 99
[2024-08-17] MEDS: DIVALPROEX ER 250 MG TAB 1500 MG PO ×2 (02:44→21:42)
[2024-08-17] MEDS: lamoTRIgine 100 MG TABLET 300 MG PO ×2 (02:45→21:42)
[2024-08-17] MEDS: risperiDONE 0.25 MG TABLET PO ×4 (02:45→21:42)
[2024-08-17] MEDS: TRAZODONE 50 MG TABLET 300 MG PO ×2 (02:45→21:42)
[2024-08-17] MEDS: ONDANSETRON 4 MG/2 ML INJ IV ×3 (02:51→21:44)
[2024-08-17 05:05] VITALS: BP 98/54; PULSE 57; RESP 16; TEMP 37.1; O2SAT 99
--- NOTE | 2024-08-17 05:41 | PM.HP.1 ---
History of Present Illness History of Present Illness Chief complaint: Resp infection,Diarrhea,Vomiting Narrative: 73-year-old female with past medical history of ulcerative colitis status post total colectomy in 1992, Crohn's disease on chronic steroids, asthma non-O2 dependent, bipolar, and hypertension presents with complaint of shortness of breath, coughing, nausea, vomiting and diarrhea. Per the patient's report, over the last month, the patient has been on and off with shortness of breath and a dry cough. Starting last week the patient also had nausea, nonbloody vomiting and diarrhea. The patient states that her diarrhea has no blood and is only with light brown watery stool. The patient denies any recent antibiotic use or recent sick contact. The patient however denies any fever, chills, chest pain, abdominal pain or dysuria. The patient states that over the last few days the patient's cough has been more productive and has increased wheezing. In our emergency room, the patient was hemodynamically stable. The patient WBC was 3.9 but lactate was normal. Chest x-ray shows no sign of pneumonia. The patient was saturating well on room air but was having wheezing and some respiratory distress. IV Solu-Medrol was given. CT scan of the abdomen shows possible dilated common bile duct with signs of distended gallbladder. There were visible gallstones. There was also sign of possible enterocolitis. Lipase was in the 5000s. Bilirubin and LFTs were all normal. General surgery was consulted and recommended that we admit the patient for IV antibiotic, n.p.o., IV fluid, pain control, MRCP and possible cholecystectomy. The patient was given IV ceftriaxone, IV Flagyl, IV Solu-Medrol, DuoNebs pain medication and IV fluid. [facility] Medical History Generalized weakness Small bowel obstruction Surgical History H/O thyroidectomy Family History Mother Diabetes mellitus Heart disease Father Diabetes mellitus Heart disease Brother Myocardial infarction CVA (cerebral vascular accident) Other Hypertension Social History household members: spouse Smoking Status: Never smoker alcohol intake: former Meds Home Medications and Allergies Home Medications Medication Instructions Recorded Confirmed Type albuterol sulfate 90 mcg/actuation 2 puff INH Q4HP PRN Bronchospasm 04/17/16 08/16/24 History aerosol inhaler (Ventolin HFA) ##0 divalproex 500 mg tablet,extended 1,500 mg PO HS ##0 04/17/16 08/17/24 History release 24 hr lamotrigine 200 mg tablet 300 mg PO BEDTIME ##0 04/17/16 08/17/24 History (Lamictal) levothyroxine 75 mcg tablet 0.075 mg PO QDAY ##0 04/17/16 08/16/24 History (Synthroid) losartan 25 mg tablet 75 mg PO QDAY ##0 04/17/16 08/16/24 History acetaminophen 500 mg tablet 1,000 mg PO Q6HP PRN Abdominal 05/28/21 08/16/24 History (Tylenol Extra Strength) Discomfort scopolamine base 1 mg over 3 days 1 patch topical Q72H #6 ea 06/20/21 08/16/24 Rx transdermal patch (Transderm-Scop) promethazine 25 mg tablet 25 mg PO TID PRN nausea and 06/27/21 08/16/24 Rx vomiting #20 tabs risperidone 0.25 mg tablet 0.25 mg PO TID 02/05/24 08/16/24 History buspirone 15 mg tablet 15 mg PO BID 02/06/24 08/16/24 History budesonide 3 mg 9 mg (3 x 3 mg) PO DAILY #1 ea 02/09/24 08/16/24 Rx capsule,delayed,extended release trazodone 50 mg tablet 300 mg PO BEDTIME 08/17/24 08/17/24 History Allergies Allergy/AdvReac Type Severity Reaction Status Date / Time butorphanol Allergy Unknown Verified 03/20/24 12:24 Influenza Virus Vaccines Allergy Unknown ITCHING, Verified 03/20/24 12:24 BAD REACTION meperidine Allergy Unknown Verified 03/20/24 12:24 pneumococcal vaccine Allergy Unknown Verified 03/20/24 12:24 quetiapine Allergy Unknown Verified 03/20/24 12:24 shellfish derived Allergy Unknown Verified 03/20/24 12:24 neuroleptics AdvReac Unknown PT STATES Uncoded 03/20/24 12:24 HAD REALLY BAD REACTION, UNABLE TO STATE WHAT Review of Systems Review of Systems ROS: Yes All systems reviewed with the patient and are negative except as otherwise documented Exam Vital Signs (past 8 hours): - 08/16/24 21:52 08/17/24 00:56 08/17/24 05:05 Temperature 97.1 F L 97.7 F 98.7 F Pulse Rate 68 58 L 57 L Respiratory Rate 16 16 16 Blood Pressure 125/56 L 98/53 L 98/54 L Pulse Oximetry 100 99 99 Oxygen Flow Rate 0 0 0 Oxygen Delivery Method Room Air Oxygen Flow Rate 0 Narrative Exam Narrative: Physical Exam: GENERAL: The patient is not in any acute distressed. Awake and alert. HEENT: Nonicteric sclerae, PERRLA, EOMI. Oropharynx clear. Moist mucous membranes. Conjunctivae appear well perfused. HEART: Regular rate and rhythm without murmurs. No lower extremities edema. LUNGS: Clear to auscultation bilaterally. No wheezing, crackles or rhonchi ABDOMEN: Soft, positive bowel sounds, nontender. SKIN: No rash, no excessive bruising, petechiae, or purpura. NEUROLOGIC: AxO x 3. Cranial nerves II-XII intact without motor/sensory deficit. Objective Labs 08/16/24 18:15 08/16/24 18:15 Labs: Laboratory Results - last 24 hr 08/16/24 08/16/24 08/16/24 14:00 14:50 14:59 WBC RBC Hgb Hct MCV MCH MCHC RDW Plt Count Neut % (Auto) Lymph % (Auto) [place] % (Auto) Eos % (Auto) Baso % (Auto) Neut # (Auto) Lymph # (Auto) [place] # (Auto) Eos # (Auto) Baso # (Auto) Sodium Potassium Chloride Carbon Dioxide BUN Creatinine Estimated GFR BUN/Creatinine Ratio Glucose Lactate Calcium Magnesium Total Bilirubin AST ALT Alkaline Phosphatase Total Creatine Kinase Troponin I Total Protein Albumin Globulin Albumin/Globulin Ratio Lipase Procalcitonin Urine RBC None seen Urine WBC 1-5/hpf Ur Squamous Epith Cells 1-5 /hpf Urine Bacteria Few (2-10) H Hyaline Casts 1-5/lpf Ur Culture Indicated? Cult not indicated Vol Urine Centrifuged Low vol <10ml (spun) A Stl C. cayetanensis PCR Not detected Stool Rotavirus (PCR) Not detected Stool Adenovirus (PCR) Not detected Stool Astrovirus (PCR) Not detected Stool Cryptosporidium PCR Not detected Stl E.coli Shiga Tox PCR Not detected St Sh/Enteroin Ecoli PCR Not detected Stl Enterotoxigenic E PCR Not detected Stool EPEC (PCR) Not detected Stl E. histolytica PCR Not detected Stool Giardia Lamblia PCR Not detected Stool Sapovirus (PCR) Not detected Stl P. shigelloides PCR Not detected St Y.enterocolitica PCR Not detected Stool Vibrio (PCR) Not detected Stl Vibrio cholerae PCR Not detected Stl Enteroaggr Ecoli PCR Not detected Stl Norovirus GI/GII PCR Not detected Campylobacter (PCR) Not detected C. difficile Tox (PCR) Not detected SARS-CoV-2 (PCR) Negative Influenza A (RT-PCR) Flu a negative Influenza B (RT-PCR) Flu b negative RSV (PCR) Negative Salmonella (PCR) Not detected 08/16/24 18:15 WBC 3.9 L RBC 3.64 L Hgb 11.9 L Hct 36.8 MCV 101.3 H MCH 32.6 MCHC 32.2 RDW 13.1 Plt Count 263 Neut % (Auto) 68.9 Lymph % (Auto) 24.2 L [place] % (Auto) 6.1 Eos % (Auto) 0.4 L Baso % (Auto) 0.4 Neut # (Auto) 2700 Lymph # (Auto) 900 L [place] # (Auto) 200 Eos # (Auto) 0 Baso # (Auto) 0 Sodium 134 L Potassium 4.4 Chloride 108 H Carbon Dioxide 13 L BUN 43 H Creatinine 1.60 H Estimated GFR 34 L BUN/Creatinine Ratio 26.9 H Glucose 100 Lactate 1.8 Calcium 8.9 Magnesium 2.5 H Total Bilirubin 0.4 AST 27 ALT 15 Alkaline Phosphatase 107 Total Creatine Kinase 23 L Troponin I < 0.012 Total Protein 6.9 Albumin 3.7 Globulin 3.2 Albumin/Globulin Ratio 1.2 Lipase 2728 H Procalcitonin 0.100 Urine RBC Urine WBC Ur Squamous Epith Cells Urine Bacteria Hyaline Casts Ur Culture Indicated? Vol Urine Centrifuged Stl C. cayetanensis PCR Stool Rotavirus (PCR) Stool Adenovirus (PCR) Stool Astrovirus (PCR) Stool Cryptosporidium PCR Stl E.coli Shiga Tox PCR St Sh/Enteroin Ecoli PCR Stl Enterotoxigenic E PCR Stool EPEC (PCR) Stl E. histolytica PCR Stool Giardia Lamblia PCR Stool Sapovirus (PCR) Stl P. shigelloides PCR St Y.enterocolitica PCR Stool Vibrio (PCR) Stl Vibrio cholerae PCR Stl Enteroaggr Ecoli PCR Stl Norovirus GI/GII PCR Campylobacter (PCR) C. difficile Tox (PCR) SARS-CoV-2 (PCR) Influenza A (RT-PCR) Influenza B (RT-PCR) RSV (PCR) Salmonella (PCR) Assessment & Plan Assessment & Plan narrative: Acute gallstone pancreatitis. Admit the patient to medical telemetry as inpatient. Of note bilirubin and LFTs are all negative. There is evidence of gallstone and dilated gallbladder on CT scan. General surgery consulted and recommended an MRCP which was ordered. N.p.o. IV fluid. Possible surgical management with cholecystectomy. Continue IV Ceftriaxone and Flagyl per general surgery. COPD/asthma. No clear sign of exacerbation other than some wheezing. The patient is saturating well on room air. Continue inhalers for now. Patient did receive Solu-Medrol in the ER which we will stop at this point as there is no evidence of exacerbation. History of Crohn's disease on daily steroids. Resume home steroids. Patient did have some enterocolitis side on CT scan. There is no bloody diarrhea. No bowel obstruction seen. Hypothyroidism. Resume home Synthroid. If can tolerate p.o. in the morning if not we will need to switch to IV Synthroid. DVT prophylaxis SCDs for possible surgical intervention. CODE STATUS full code. Disposition likely home in 2 to 3 days. Time-Based Coding :: [TOTAL MINUTES] spent with patient and on the chart (including review of chart, obtaining history, exam, reviewing outside data, placing orders, documenting exam and treatment plan, and counseling patient) on [DATE]. Quality VTE Deep Vein Thrombosis/Pulmonary Embolism Present on Admission: No
[2024-08-17] MEDS: LEVOTHYROXINE 75 MCG TABLET PO (06:32)
[2024-08-17 07:11] LABS: Add Manual Diff / Slide Review NO; Basophils Absolute Auto 0 /uL (0-100); Basophils Percent Auto 0.2 % (0-2); Eosinophils Absolute Auto 0 /uL (0-450); Hematocrit 29.7 % (36-46); Lymphocytes Absolute Auto 1000 /uL (1100-4500); Lymphocytes Percent Auto 36.5 % (25-40); Mean Corpuscular HGB Conc 33.7 % (30-36); Mean Corpuscular Hemoglobin 33.8 PG (26-34); Mean Corpuscular Volume 100.4 fL (80-100); Monocytes Absolute Auto 200 /uL (0-900); Monocytes Percent Auto 5.9 % (3-14); Neutrophils Absolute Auto 1600 /uL (1500-7000); Neutrophils Percent Auto 57.4 % (50-75); Platelet Count 196 X10^3/uL (150-400); Red Blood Cell Count 2.96 X10^6/uL (4.0-5.2); Red Cell Distribution Width 13.3 % (11.6-14.8); White Blood Cell Count 2.8 X10^3/uL (4.5-11.0)
[2024-08-17 07:23] LABS: Alanine Aminotransferase 10 IU/L (<35); Albumin 2.6 g/dL (3.5-5.0); Alkaline Phosphatase 77 U/L (38-126); Aspartate Aminotransferase 17 IU/L (14-36); BUN Creatinine Ratio 30.8 (6-22); Blood Urea Nitrogen 33 mg/dL (7-17); Carbon Dioxide 15 mmol/L (22-32); Chloride 114 mmol/L (98-107); Estimated Glomerular Filt Rate 56 mL/min (>60); Globulin 2.7 g/dL (1.7-4.1); Glucose 93 mg/dL (80-110); HEMOLYSIS < 15 (0-50); Potassium 5.1 mmol/L (3.4-5.1); Sodium 134 mmol/L (137-145); Total Protein 5.3 g/dL (6.3-8.2)
[2024-08-17 07:28] LABS: Bilirubin Total < 0.1 mg/dL (0.2-1.3)
[2024-08-17 09:00] VITALS: BP 117/74; PULSE 61; RESP 17; TEMP 36.3; O2SAT 100
--- NOTE | 2024-08-17 09:20 | PT.IIE ---
Surgical History (Last Reviewed 08/16/24 @ 16:40 by Bobbi Merrill PA-C) H/O thyroidectomy Medical History (Last Reviewed 08/16/24 @ 16:40 by Bobbi Merrill PA-C) Generalized weakness Small bowel obstruction Physical Therapy Inpatient Evaluation/Re-Eval M1 PT/OT-IP Prior Functional Status Start: 08/17/24 12:04 Freq: NEEDED Status: Active Protocol: Document 08/17/24 09:20 AB (Rec: 08/17/24 12:18 AB [id number]) Medical Review Prior Functional Status Medical History Reviewed Yes Communication able to make needs known; with slight confusion Mobility and Gait pt stated that she was modified independent with all mobilities and able to ambulate without AD but occasionally uses a SPC depending on how steady she feels Social History Household Members spouse Living Arrangements House Number of Floors (Floors) Two Floors Number of Stairs To Enter/Railing? pt has a stair lift to get to main level of the house from the garage Home Environment Standard Height Toilet,Walk in Shower Home Equipment Four Wheel Walker,Straight Cane,Hand Held Shower,Grab Bars Near Toilet,Grab Bars In Shower Additional Social History Comment pt lives with spouse but spouse works during the week M2 PT-IP Current Condition Start: 08/17/24 12:04 Freq: NEEDED Status: Active Protocol: Document 08/17/24 09:20 AB (Rec: 08/17/24 12:18 AB [id number]) Physical Therapy Current Condition Current Condition Evaluation Date 08/17/24 Treatment Diagnosis acute cholecystitis; difficulty in walking Onset Date 08/16/24 M3 PT-IP Subjective Start: 08/17/24 12:04 Freq: NEEDED Status: Active Protocol: Document 08/17/24 09:20 AB (Rec: 08/17/24 12:18 AB [id number]) Subjective Physical Therapy Visit Type Type Initial Evaluation Visit Start Time 09:20 Visit Stop Time 10:55 Notes pt seen for split visits: 920- 945 am and 1040 am to 1055 Number of CRIMP SETTER Visits 0 Physical Therapy Visit Comments Patient Comments agreeable to do PT Therapy Pain Assessment Pain When Pain Assessed At Rest Location Abdomen Intensity 8 Scale Used Numeric (0 - 10) Pain Management Techniques Distraction,Modification of Treatment,Re-positioning M4 PT-IP Mobility and Gait Start: 08/17/24 12:04 Freq: NEEDED Status: Active Protocol: Document 08/17/24 09:20 AB (Rec: 08/17/24 12:18 AB [id number]) PT-Bed Mobility Assessment Supine to Sit Supine to Sit Standby Assistance,1 Person Assistance,Head of Bed Elevated,Bedrails PT-Transfer Assessment Sit to and From Stand Sit to and from Stand Contact Guard Assistance,1 Person Assistance,Use of Upper Extremities Equipment Transfer Assistive Device Gait Belt,Straight Cane Orthotic/Prosthetic Devices or Brace: No Transfers Transfer Destination Chair Transfer Technique ambulated Transfer Ability Level of Assist Contact Guard Assistance,1 Person Assistance,Use of Upper Extremities Comments Mobility Comments pt in bed and agreed to do PT. obtained PLOF and home set up. checked back on pt after rounds meeting. Spouse in room. BP: 105/68 . pt stated that she feels very weak and has not eaten. pt is currently NPO. pt completed supine to sit SBA . HOB elevated. pt used bed rail. pt able to sit on EOB SBA. BP checked: 117/72. completed sit to stand CGA and ambulated in room using SPC ~ 50 ft CGA. presents with antalgic gait. pt stated that she has L hip sx before. pt agreed to sit up on chair. positioned pt on the chair. call light and table placed within reach. Gait Assessment Gait Gait Assistance Required: Contact Guard Assist Distance (Feet) 50 Able to Maintain Weight Bearing Status Yes During Gait Assistive Devices Assistive Device Gait Belt,Straight Cane Orthotic/Prosthetic Devices or Brace: No Gait Deviations General Gait Pattern Antalgic,Decreased Stride Length,Decreased Feet Clearance Factors Limiting Gait Function Factors Limiting Gait Function Decreased Activity Tolerance, Decreased Strength,Difficulty Following Directions,Limited Range of Motion,Pain,Poor Balance,Poor Safety Awareness PT-Balance Assessment Sitting Balance and Reactions Static Sitting Balance Ability Normal Dynamic Sitting Balance Ability Good Standing Balance and Reactions Static Standing Balance Ability Fair Dynamic Standing Balance Ability Fair Device Used SPC M5 PT-IP Objective Assessments Start: 08/17/24 12:04 Freq: NEEDED Status: Active Protocol: Document 08/17/24 09:20 AB (Rec: 08/17/24 12:18 AB [id number]) Orientation Orientation/Cognition Level of Alertness Alert Orientation Name,Place,Situation Language Function Ability No Deficits Noted Safety Awareness Decreased Safety Awareness Memory Description Short Term Impaired Comments with slight confusion Gross Range of Motion Lower Extremity ROM Assessment Within Functional Limits Strength Lower Extremity Strength Assessment Left Impaired Hip 3+/5 Knee 4-/5 Sensation Assessment Sensation Gross Sensation WNL Muscle Tone Muscle Tone WNL Yes M6 PT-IP Treatment Start: 08/17/24 12:04 Freq: NEEDED Status: Active Protocol: Document 08/17/24 09:20 AB (Rec: 08/17/24 12:18 AB [id number]) Physical Therapy Treatment Education Education Provided Safety M7 PT-IP Assessment and Plan Start: 08/17/24 12:04 Freq: NEEDED Status: Active Protocol: Document 08/17/24 09:20 AB (Rec: 08/17/24 12:18 AB [id number]) PT Summary Assessment and Plan Potential Rehabilitation Potential Fair Status of Condition at Evaluation Evolving Summary Impairments Pain,ROM,Strength,Balance, Coordination,Sensation,Tone, Cognition,Bed Mobility, Transfers,Gait,Activity Tolerance Assessment Summary pt is a 73 y/o F who is admitted for acute cholecystitis, pancreatitis. pt requiring CGA with mobility using SPC but has decrease activity tolerance requiring assistance at this time. d/c plan depending on progress. will continue to assess. Goals Bed Mobility Goal Independent Transfer Goal Independent,Cane Gait Goal Independent,Cane Gait Distance 200 Other Goals improve transfers and ambulation without AD ~ 200 ft mod I Days to Meet Goals 10 Frequency of Treatment Frequency Of Treatment Once a Day Treatment Plan Physical Therapy Treatment Plan Bed Mobility Training,Transfer Training,Gait Training, Therapeutic Exercise,Balance Retraining,Discharge Planning, Hot or Cold Pack,Neuromuscular Re-ed,Coordination Retraining ,Manual Therapy Recommendations To Nursing Amount of Assist Needed 1 Person Assist Discharge Recommendations PT Discharge Recommendations Home with Assistance,Home Health Transportation Needs at Discharge Private Vehicle
[2024-08-17] MEDS: PROMETHAZINE 25 MG TABLET PO (10:53)
[2024-08-17] MEDS: BUSPIRONE 5 MG TABLET 15 MG PO ×2 (11:30→21:42)
--- NOTE | 2024-08-17 12:34 | PM.CN.IH.1 ---
History of Present Illness Consult details Date Patient Seen: 08/17/24 Time Patient Seen: 12:05 Chief complaint: Resp infection,Diarrhea,Vomiting Reason for consult: Gallstone pancreatitis Narrative: This is a 73-year-old woman who presented to the hospital with progressively worsening respiratory infection, diarrhea, vomiting and abdominal pain. Patient states that since the past month she has had progressively worsening respiratory infection. She has a past medical history of asthma, Crohn's disease, asthma non-O2 dependent, bipolar, and hypertension. During her time in the emergency department, patient was found to be wheezing and was treated with an albuterol treatment. Patient states that her respiratory status has improved. In regards to her GI tract, patient has had a total abdominal colectomy for Crohn's disease and remains on chronic steroids. She has had chronic nausea, nonbloody vomiting and diarrhea over the past month. Patient denies any blood in her stool. She denies any recent antibiotic use or sick contacts Meds Home Medications and Allergies Home Medications Medication Instructions Recorded Confirmed Type albuterol sulfate 90 mcg/actuation 2 puff INH Q4HP PRN Bronchospasm 04/17/16 08/16/24 History aerosol inhaler (Ventolin HFA) ##0 divalproex 500 mg tablet,extended 1,500 mg PO HS ##0 04/17/16 08/17/24 History release 24 hr lamotrigine 200 mg tablet 300 mg PO BEDTIME ##0 04/17/16 08/17/24 History (Lamictal) levothyroxine 75 mcg tablet 0.075 mg PO QDAY ##0 04/17/16 08/16/24 History (Synthroid) losartan 25 mg tablet 75 mg PO QDAY ##0 04/17/16 08/16/24 History acetaminophen 500 mg tablet 1,000 mg PO Q6HP PRN Abdominal 05/28/21 08/16/24 History (Tylenol Extra Strength) Discomfort scopolamine base 1 mg over 3 days 1 patch topical Q72H #6 ea 06/20/21 08/16/24 Rx transdermal patch (Transderm-Scop) promethazine 25 mg tablet 25 mg PO TID PRN nausea and 06/27/21 08/16/24 Rx vomiting #20 tabs risperidone 0.25 mg tablet 0.25 mg PO TID 02/05/24 08/16/24 History buspirone 15 mg tablet 15 mg PO BID 02/06/24 08/16/24 History budesonide 3 mg 9 mg (3 x 3 mg) PO DAILY #1 ea 02/09/24 08/16/24 Rx capsule,delayed,extended release trazodone 50 mg tablet 300 mg PO BEDTIME 08/17/24 08/17/24 History Allergies Allergy/AdvReac Type Severity Reaction Status Date / Time butorphanol Allergy Unknown Verified 03/20/24 12:24 Influenza Virus Vaccines Allergy Unknown ITCHING, Verified 03/20/24 12:24 BAD REACTION meperidine Allergy Unknown Verified 03/20/24 12:24 pneumococcal vaccine Allergy Unknown Verified 03/20/24 12:24 quetiapine Allergy Unknown Verified 03/20/24 12:24 shellfish derived Allergy Unknown Verified 03/20/24 12:24 neuroleptics AdvReac Unknown PT STATES Uncoded 03/20/24 12:24 HAD REALLY BAD REACTION, UNABLE TO STATE WHAT Exam Vital Signs (past 8 hours): - 08/17/24 05:05 08/17/24 09:00 Temperature 98.7 F 97.4 F L Pulse Rate 57 L 61 Respiratory Rate 16 17 Blood Pressure 98/54 L 117/74 Pulse Oximetry 99 100 Oxygen Flow Rate 0 0 Oxygen Delivery Method Room Air Oxygen Flow Rate 0 Const General: cooperative and frail appearing Nutritional Appearance: average body habitus Orientation: alert, awake and oriented x3 HENMT Head: normal to inspection Eyes General: appearance normal, both eyes and all related structures Neck Neck: normal visual inspection Chest Chest: normal inspection of the chest Resp Effort & Inspection: normal respiratory effort, able to speak in complete sentences, no audible wheezes and not labored Cardio Pulses: posterior tibial pulses present, dorsalis pedis present and normal peripheral pulses GI Inspection: normal to inspection and scar (Upper midline, right lower quadrant and suprapubic scars) Palpation: soft, No hernia and tender (Epigastric tenderness to palpation) Percussion: no tympanic to percussion Back/Spine/Pelvis Back: normal to inspection Skin General: no rashes or lesions noted Neuro General: patient alert, patient awake and patient oriented x3 Extrem General: normal to inspection Psych Appearance: grossly normal and well kempt Mental Status: mental status grossly normal Speech and Movement: speech and movement normal Objective Imaging CT scan - abdomen: My impression: CT scan was reviewed. Patient found to have distended gallbladder with cholelithiasis. No evidence of acute pancreatitis on CT. Enterocolitis Radiologist's impression: [address] [address] [address] Scan Report Signed Patient: Shikha Watkins MR#: [id number] : 1950 Acct:[id number] Age/Sex: 73 / F Date of Service: 08/16/24 Loc: ED Accession Number: [id number] Procedure: CT abdomen pelvis w con Ordering Provider: Bobbi Merrill PA-C PROCEDURE: CT ABDOMEN PELVIS W CON INDICATIONS: diffuse abd pain; N/V/D; hx colectomy TECHNIQUE: After the administration of intravenous contrast, axial sections acquired from the lung bases to the pubic symphysis. Coronal and sagittal reformats were performed. For radiation dose reduction, the following was used: automated exposure control, adjustment of mA and/or kV according to patient size. COMPARISON: [facility], CT, CT ABDOMEN PELVIS W CON, 03/20/2024, 14:13. FINDINGS: Image quality: Diagnostic Lower chest: Unremarkable lung bases Coronary calcifications. Small hiatal hernia and GE junction postsurgical changes. Liver: Unremarkable Gallbladder and biliary system: Suspect cholelithiasis and gallbladder distention. CBD is prominent at 6 millimeters. Pancreas: Mildly ectatic duct at 3 millimeters Spleen: Nonenlarged Adrenals: No discrete nodules Kidneys: Many presumed renal cysts. Subcentimeter lesions are too small to characterize, usually also cysts. These are indeterminate however on CT. Consider nonurgent ultrasound to ensure there are no solid masses. No hydronephrosis. Vessels and lymph nodes: The main portal vein is patent. No abdominal aortic aneurysm. No pathologic lymphadenopathy by size criteria. Atherosclerotic calcifications are seen. Bowel and peritoneum: No small bowel obstruction. Mild diffuse colonic and distal small bowel wall thickening. There is scattered colonic suture lines. No pathologic ascites or drainable abscess. Liquid colonic contents are seen distally. Body wall: Unremarkable Pelvis: Bladder is unremarkable. Uterus is not seen. Bones: There are degenerative changes. Left proximal femur fixation hardware. Left pubic nonacute deformities. Similar L2 compression deformity. IMPRESSION: Prominent fluid-filled mildly thick wall loops of distal small bowel and colon, likely enterocolitis. Colonic postsurgical changes. No high-grade obstruction. Small hiatal hernia with mild wall thickening also seen, with postsurgical changes. Suspect cholelithiasis and gallbladder distention. Soft tissue thickening is possible but less likely. Correlate ultrasound. Mildly prominent CBD at 6 millimeters, correlate LFTs. Other findings above. Dictated by: João Leslie M.D. on 08/16/2024 at 20:05 Approved by: João Leslie M.D. on 08/16/2024 at 20:09 Labs 08/17/24 06:10 08/17/24 06:10 Labs: Laboratory Results - last 24 hr 08/16/24 08/16/24 08/16/24 14:00 14:50 14:59 WBC RBC Hgb Hct MCV MCH MCHC RDW Plt Count Neut % (Auto) Lymph % (Auto) Otero % (Auto) Eos % (Auto) Baso % (Auto) Neut # (Auto) Lymph # (Auto) Otero # (Auto) Eos # (Auto) Baso # (Auto) Sodium Potassium Chloride Carbon Dioxide BUN Creatinine Estimated GFR BUN/Creatinine Ratio Glucose Lactate Calcium Magnesium Total Bilirubin AST ALT Alkaline Phosphatase Total Creatine Kinase Troponin I Total Protein Albumin Globulin Albumin/Globulin Ratio Lipase Procalcitonin Urine RBC None seen Urine WBC 1-5/hpf Ur Squamous Epith Cells 1-5 /hpf Urine Bacteria Few (2-10) H Hyaline Casts 1-5/lpf Ur Culture Indicated? Cult not indicated Vol Urine Centrifuged Low vol <10ml (spun) A Stl C. cayetanensis PCR Not detected Stool Rotavirus (PCR) Not detected Stool Adenovirus (PCR) Not detected Stool Astrovirus (PCR) Not detected Stool Cryptosporidium PCR Not detected Stl E.coli Shiga Tox PCR Not detected St Sh/Enteroin Ecoli PCR Not detected Stl Enterotoxigenic E PCR Not detected Stool EPEC (PCR) Not detected Stl E. histolytica PCR Not detected Stool Giardia Lamblia PCR Not detected Stool Sapovirus (PCR) Not detected Stl P. shigelloides PCR Not detected St Y.enterocolitica PCR Not detected Stool Vibrio (PCR) Not detected Stl Vibrio cholerae PCR Not detected Stl Enteroaggr Ecoli PCR Not detected Stl Norovirus GI/GII PCR Not detected Campylobacter (PCR) Not detected C. difficile Tox (PCR) Not detected SARS-CoV-2 (PCR) Negative Influenza A (RT-PCR) Flu a negative Influenza B (RT-PCR) Flu b negative RSV (PCR) Negative Salmonella (PCR) Not detected 08/16/24 08/17/24 18:15 06:10 WBC 3.9 L 2.8 L RBC 3.64 L 2.96 L Hgb 11.9 L 10.0 L Hct 36.8 29.7 L MCV 101.3 H 100.4 H MCH 32.6 33.8 MCHC 32.2 33.7 RDW 13.1 13.3 Plt Count 263 196 Neut % (Auto) 68.9 57.4 Lymph % (Auto) 24.2 L 36.5 Otero % (Auto) 6.1 5.9 Eos % (Auto) 0.4 L 0.0 L Baso % (Auto) 0.4 0.2 Neut # (Auto) 2700 1600 Lymph # (Auto) 900 L 1000 L Otero # (Auto) 200 200 Eos # (Auto) 0 0 Baso # (Auto) 0 0 Sodium 134 L 134 L Potassium 4.4 5.1 Chloride 108 H 114 H Carbon Dioxide 13 L 15 L BUN 43 H 33 H Creatinine 1.60 H 1.07 H Estimated GFR 34 L 56 L BUN/Creatinine Ratio 26.9 H 30.8 H Glucose 100 93 Lactate 1.8 Calcium 8.9 8.0 L Magnesium 2.5 H Total Bilirubin 0.4 < 0.1 L AST 27 17 ALT 15 10 Alkaline Phosphatase 107 77 Total Creatine Kinase 23 L Troponin I < 0.012 Total Protein 6.9 5.3 L Albumin 3.7 2.6 L Globulin 3.2 2.7 Albumin/Globulin Ratio 1.2 1.0 Lipase 2728 H Procalcitonin 0.100 Urine RBC Urine WBC Ur Squamous Epith Cells Urine Bacteria Hyaline Casts Ur Culture Indicated? Vol Urine Centrifuged Stl C. cayetanensis PCR Stool Rotavirus (PCR) Stool Adenovirus (PCR) Stool Astrovirus (PCR) Stool Cryptosporidium PCR Stl E.coli Shiga Tox PCR St Sh/Enteroin Ecoli PCR Stl Enterotoxigenic E PCR Stool EPEC (PCR) Stl E. histolytica PCR Stool Giardia Lamblia PCR Stool Sapovirus (PCR) Stl P. shigelloides PCR St Y.enterocolitica PCR Stool Vibrio (PCR) Stl Vibrio cholerae PCR Stl Enteroaggr Ecoli PCR Stl Norovirus GI/GII PCR Campylobacter (PCR) C. difficile Tox (PCR) SARS-CoV-2 (PCR) Influenza A (RT-PCR) Influenza B (RT-PCR) RSV (PCR) Salmonella (PCR) PFSH Medical History Generalized weakness Small bowel obstruction Surgical History H/O thyroidectomy Family History Mother Diabetes mellitus Heart disease Father Diabetes mellitus Heart disease Brother Myocardial infarction CVA (cerebral vascular accident) Other Hypertension Social History household members: spouse Tobacco & Substance Use Smoking Status: Never smoker alcohol intake: former Assessment & Plan Assessment and plan (1) Gallstone pancreatitis: Status: Acute (2) Ileus: Status: Acute (3) Nausea & vomiting: Qualifiers: Vomiting Intractability: intractable Vomiting type: unspecified Qualified Code(s): R11.2 - Nausea with vomiting, unspecified Status: Acute (4) S/P exploratory laparotomy: Status: Acute Assessment & Plan narrative: This is a 73-year-old woman who presents to the hospital with possible respiratory infection and gallstone pancreatitis. Patient has common bile duct appeared to be slightly dilated on CT scan. LFTs and labs for liver enzymes have been normal. -NPO, IV fluids and monitor for worsening of acute pancreatitis. Lipase has improved from over 2000 to 700s today. -continue antibiotics. It is unclear if patient has acute cholecystitis at this time but likely has fissure gallstone pancreatitis -we will add patient on for laparoscopic cholecystectomy with intraoperative cholangiogram on MondayAugust 19 -replace electrolytes as needed -continue budesonide steroids. -continue inpatient care. We will monitor closely Time-Based Coding :: [TOTAL MINUTES] spent with patient and on the chart (including review of chart, obtaining history, exam, reviewing outside data, placing orders, documenting exam and treatment plan, and counseling patient) on [DATE]. PROFEE Charge Codes Inpatient or Observation consultation: 49796
[2024-08-17] MEDS: OXYCODONE IR 5 MG TABLET PO (13:23)
[2024-08-17] MEDS: BUDESONIDE 3 MG CAP 9 MG PO (13:24)
--- NOTE | 2024-08-17 14:09 | CM.DANOTE ---
Initial DCP Assessment Note Pt is a 73 yo female, resident of [place] on [facility], presents with SOB, N/V/D, admitted for further work up and consultation by general surgery. PCP: Judy Davison at the [facility] Payer: KEVIN/[employer] Reviewed chart, met w/patient and her spouse Willard. Patient lives indp w/spouse. Patient has hx of hip and wrist fx. Hx at [facility] and [facility]. Patient plans to return home w/sp at discharge, sees an outpatient PT. patient says she will consider HH if recommended. Patient has no preference between [facility] and asks that the referral be sent to the agency that can start services the soonest. Plan: Discharge home w/spouse is anticipated. Sp to transport. CM team will plan to follow clinical course closely. Patient may be a good candidate for HH at discharge. Need F2F and HH order. SRIDHAR Landry Discharge Planning/Care Management CM Discharge Assessment Start: 08/17/24 14:07 Freq: Status: Active Protocol: Document 08/17/24 14:07 SANIA (Rec: 08/17/24 14:08 SANIA [id number]) Discharge Planning Assessment Assigned Legislative Director SRIDHAR Webb DPOA/Assigned Designee Name Willard Vela, spouse Contact Information [phone] Advance Directives? Yes; POLST Advance Directives on File Yes History Provided By Patient,Significant Other, Medical Record Prior Living Arrangements House Household Members spouse Type of transporation used prior to Relies on Others admit Independent with ADL's Yes Is patient alert and oriented? Yes Barriers to Discharge No Discharge Plan Home Transportation Arrangement spouse Additional Comment May benefit from HH SNF/HH Preference [facility] whichever can start the soonest Whiteboard Updated in Patient Room with Yes name and ext. # of Legislative Director
[2024-08-17 14:14] LABS: Lipase 797 U/L (23-300)
[2024-08-17 16:00] VITALS: BP 115/59; PULSE 62; RESP 18; TEMP 36.1; O2SAT 98
[2024-08-17] MEDS: cefTRIAXone 1,000 MG in SODIUM CHLORIDE 0.9% 100 ML 200 MG IV (16:16)
[2024-08-17] MEDS: HYDROMORPHONE 1 MG INJ IV ×2 (16:17→21:59)
--- NOTE | 2024-08-17 16:39 | PM.PN.1 ---
Subjective Subjective Interval history: 73 F with PMH of crohn's disease Exam Vital Signs (past 8 hours): - 08/17/24 09:00 08/17/24 16:00 Temperature 97.4 F L 97.0 F L Pulse Rate 61 62 Respiratory Rate 17 18 Blood Pressure 117/74 115/59 L Pulse Oximetry 100 98 Oxygen Flow Rate 0 0 Oxygen Delivery Method Room Air Oxygen Flow Rate 0 Narrative Exam Narrative: Gen: mildly ill appearing but NAD CV: RRR no m/r/g Pulm:CTA b/l Abd: S mild tender RUQ ND Ext: No edema Objective Labs 08/17/24 06:10 08/17/24 06:10 Labs: Laboratory Results - last 24 hr 08/16/24 08/16/24 08/17/24 14:50 18:15 06:10 WBC 3.9 L 2.8 L RBC 3.64 L 2.96 L Hgb 11.9 L 10.0 L Hct 36.8 29.7 L MCV 101.3 H 100.4 H MCH 32.6 33.8 MCHC 32.2 33.7 RDW 13.1 13.3 Plt Count 263 196 Neut % (Auto) 68.9 57.4 Lymph % (Auto) 24.[address] % (Auto) 6.1 5.9 Eos % (Auto) 0.4 L 0.0 L Baso % (Auto) 0.4 0.2 Neut # (Auto) 2700 1600 Lymph # (Auto) [address] [place] # (Auto) 200 200 Eos # (Auto) 0 0 Baso # (Auto) 0 0 Sodium 134 L 134 L Potassium 4.4 5.1 Chloride 108 H 114 H Carbon Dioxide 13 L 15 L BUN 43 H 33 H Creatinine 1.60 H 1.07 H Estimated GFR 34 L 56 L BUN/Creatinine Ratio 26.9 H 30.8 H Glucose 100 93 Lactate 1.8 Calcium 8.9 8.0 L Magnesium 2.5 H Total Bilirubin 0.4 < 0.1 L AST 27 17 ALT 15 10 Alkaline Phosphatase 107 77 Total Creatine Kinase 23 L Troponin I < 0.012 Total Protein 6.9 5.3 L Albumin 3.7 2.6 L Globulin 3.2 2.7 Albumin/Globulin Ratio 1.2 1.0 Lipase 2728 H 797 H D Procalcitonin 0.100 Stl C. cayetanensis PCR Not detected Stool Rotavirus (PCR) Not detected Stool Adenovirus (PCR) Not detected Stool Astrovirus (PCR) Not detected Stool Cryptosporidium PCR Not detected Stl E.coli Shiga Tox PCR Not detected St Sh/Enteroin Ecoli PCR Not detected Stl Enterotoxigenic E PCR Not detected Stool EPEC (PCR) Not detected Stl E. histolytica PCR Not detected Stool Giardia Lamblia PCR Not detected Stool Sapovirus (PCR) Not detected Stl P. shigelloides PCR Not detected St Y.enterocolitica PCR Not detected Stool Vibrio (PCR) Not detected Stl Vibrio cholerae PCR Not detected Stl Enteroaggr Ecoli PCR Not detected Stl Norovirus GI/GII PCR Not detected Campylobacter (PCR) Not detected C. difficile Tox (PCR) Not detected Salmonella (PCR) Not detected PFSH Medical History Generalized weakness Small bowel obstruction Surgical History H/O thyroidectomy Family History Mother Diabetes mellitus Heart disease Father Diabetes mellitus Heart disease Brother Myocardial infarction CVA (cerebral vascular accident) Other Hypertension Social History household members: spouse Smoking Status: Never smoker alcohol intake: former Assessment & Plan Assessment & Plan narrative: Acute gallstone pancreatitis, with possible cholecystitis -discussed with surgeon today, MRCP to be done after midline placed (lost IV access and difficult stick). Lipase already improved on repeat labs today from 2700 to 800. -pending MRCP, tenative plan for OR possibly on Monday for cholecystectomy -trial clears if MRCP negative. though no bilirubin elevation on labs, no AST/ALT elevations -will continue ceftriaxone and flagyl for possible cholecystitis on initial CT, pending MRCP. -for now NPO except for medications YUKO - related to pancreatitis and hypovolemia - continue IV fluids today, Cr of 1.6 already improved to 1.07. COPD/asthma. Chronic, - No clear sign of exacerbation other than some wheezing. The patient is saturating well on room air. Continue inhalers for now. Patient did receive Solu-Medrol in the ER which we will stop at this point as there is no evidence of exacerbation. History of Crohn's disease on daily steroids. - Resume home steroids. Patient did have some enterocolitis side on CT scan. There is no bloody diarrhea. No bowel obstruction seen. Hypothyroidism. chronic - Resume home Synthroid. DVT prophylaxis SCDs for possible surgical intervention. CODE STATUS full code. Disposition likely home in 2 to 3 days. Time-Based Coding :: [TOTAL MINUTES] spent with patient and on the chart (including review of chart, obtaining history, exam, reviewing outside data, placing orders, documenting exam and treatment plan, and counseling patient) on [DATE]. Quality VTE Deep Vein Thrombosis/Pulmonary Embolism Present on Admission: No
[2024-08-17 20:00] VITALS: BP 119/54; PULSE 67; RESP 18; TEMP 36.4; O2SAT 97
[2024-08-18] VITALS: BP 122/74; PULSE 74; RESP 19; TEMP 36.7; O2SAT 96
[2024-08-18] MEDS: SODIUM CHLORIDE 0.9% 1,000 ML 150 ML IV ×2 (01:30→10:10)
[2024-08-18] MEDS: HYDROMORPHONE 1 MG INJ IV ×3 (01:35→23:32)
[2024-08-18 05:32] VITALS: BP 130/66; PULSE 80; RESP 19; TEMP 37; O2SAT 97
[2024-08-18] MEDS: LEVOTHYROXINE 75 MCG TABLET PO (05:32)
[2024-08-18 05:55] LABS: Hematocrit 26.7 % (36-46); Hemoglobin 8.9 g/dL (12.0-16.0); Mean Corpuscular HGB Conc 33.2 % (30-36); Mean Corpuscular Hemoglobin 33.2 PG (26-34); Mean Corpuscular Volume 100.2 fL (80-100); Platelet Count 186 X10^3/uL (150-400); Red Blood Cell Count 2.67 X10^6/uL (4.0-5.2); Red Cell Distribution Width 13.6 % (11.6-14.8); White Blood Cell Count 2.4 X10^3/uL (4.5-11.0)
[2024-08-18 06:06] LABS: Alanine Aminotransferase 10 IU/L (<35); Albumin 2.3 g/dL (3.5-5.0); Albumin Globulin Ratio 0.9 (1.0-2.8); Alkaline Phosphatase 76 U/L (38-126); Aspartate Aminotransferase 18 IU/L (14-36); BUN Creatinine Ratio 20.8 (6-22); Blood Urea Nitrogen 20 mg/dL (7-17); Calcium 7.9 mg/dL (8.4-10.2); Carbon Dioxide 15 mmol/L (22-32); Chloride 116 mmol/L (98-107); Estimated Glomerular Filt Rate > 60 mL/min (>60); Globulin 2.6 g/dL (1.7-4.1); Glucose 75 mg/dL (80-110); HEMOLYSIS < 15 (0-50); Lipase 260 U/L (23-300); Phosphorous 2.8 mg/dL (2.8-4.1); Potassium 4.3 mmol/L (3.4-5.1); Sodium 135 mmol/L (137-145); Total Protein 4.9 g/dL (6.3-8.2)
[2024-08-18 06:08] LABS: Total Cells Counted 100
[2024-08-18 06:09] LABS: Macrocytosis 1+
[2024-08-18 06:14] LABS: Neutrophils Absolute Manual 1104 /uL (3000-5900)
[2024-08-18 06:15] LABS: Bilirubin Total < 0.1 mg/dL (0.2-1.3)
[2024-08-18] MEDS: HYDROMORPHONE 2 MG INJ IV (06:19)
[2024-08-18 08:00] VITALS: BP 91/52; PULSE 78; RESP 16; TEMP 36.3; O2SAT 99
[2024-08-18] MEDS: BUDESONIDE 3 MG CAP 9 MG PO (08:29)
[2024-08-18] MEDS: risperiDONE 0.25 MG TABLET PO ×3 (08:29→20:00)
[2024-08-18] MEDS: BUSPIRONE 5 MG TABLET 15 MG PO ×2 (08:29→20:00)
[2024-08-18] MEDS: metroNIDAZOLE 500 MG/100 ML PIGGYBACK 100 MG IV ×3 (08:30→23:26)
[2024-08-18] MEDS: SCOPOLAMINE 1 PATCH TOP ×2 (08:42→08:49)
--- NOTE | 2024-08-18 10:06 | PM.PN.IH.1 ---
Subjective Subjective Date Patient Seen: 08/18/24 Time Patient Seen: 12:38 Interval history: Patient overall doing better today. She is slightly sleepy on exam today due to recently receiving pain medication. MRCP performed which demonstrated distended gallbladder and no evidence of acute pancreatitis or choledocholithiasis Exam Vital Signs (past 8 hours): - 08/18/24 05:32 08/18/24 08:00 Temperature 98.6 F 97.4 F L Pulse Rate 80 78 Respiratory Rate 19 16 Blood Pressure 130/66 91/52 L Pulse Oximetry 97 99 Oxygen Flow Rate 0 0 Oxygen Delivery Method Room Air Oxygen Flow Rate 0 Const General: cooperative, frail appearing, ill appearing and intoxicated appearing Orientation: oriented x3 HENMT Head: normal to inspection and normocephalic Eyes General: appearance normal, both eyes and all related structures Neck Neck: normal visual inspection Chest Chest: normal inspection of the chest Resp Effort & Inspection: normal respiratory effort GI Inspection: normal to inspection and non-distended Palpation: No guarding and No tender Percussion: no tympanic to percussion Back/Spine/Pelvis Back: normal to inspection Skin General: no rashes or lesions noted Neuro General: patient oriented x3 Extrem General: normal to inspection Psych Appearance: grossly normal Objective Labs 08/18/24 05:10 08/18/24 05:10 Labs: Laboratory Results - last 24 hr 08/17/24 08/18/24 06:10 05:10 WBC 2.4 L RBC 2.67 L Hgb 8.9 L Hct 26.7 L MCV 100.2 H MCH 33.2 MCHC 33.2 RDW 13.6 Plt Count 186 Total Counted 100 Seg Neutrophils % 45.0 Band Neutrophils % 1.0 L Lymphocytes % (Manual) 51.0 H Monocytes % (Manual) 2.0 Eosinophils % (Manual) 1.0 L Neutrophils # (Manual) 1104 L RBC Morphology See below Macrocytosis 1+ H Sodium 135 L Potassium 4.3 Chloride 116 H Carbon Dioxide 15 L BUN 20 H Creatinine 0.96 Estimated GFR > 60 BUN/Creatinine Ratio 20.8 Glucose 75 L Calcium 7.9 L Phosphorus 2.8 Magnesium 2.0 Total Bilirubin < 0.1 L AST 18 ALT 10 Alkaline Phosphatase 76 Total Protein 4.9 L Albumin 2.3 L Globulin 2.6 Albumin/Globulin Ratio 0.9 L Lipase 797 H D 260 D PFSH Medical History Generalized weakness Small bowel obstruction Surgical History H/O thyroidectomy Family History Mother Diabetes mellitus Heart disease Father Diabetes mellitus Heart disease Brother Myocardial infarction CVA (cerebral vascular accident) Other Hypertension Social History household members: spouse Smoking Status: Never smoker alcohol intake: former Assessment & Plan Assessment and plan (1) Gallstone pancreatitis: Status: Acute (2) Severe protein-calorie malnutrition: Status: Acute (3) Nausea & vomiting: Qualifiers: Vomiting Intractability: intractable Vomiting type: unspecified Qualified Code(s): R11.2 - Nausea with vomiting, unspecified Status: Acute (4) Ileus: Status: Acute Assessment & Plan narrative: This is a 73-year-old woman who presented to the hospital with possible respiratory infection and gallstone pancreatitis. Patient has common bile duct appeared to be slightly dilated on CT scan. LFTs and labs for liver enzymes have been normal. MRCP did not demonstrate any choledocholithiasis. -we will add patient on for laparoscopic cholecystectomy with intraoperative cholangiogram and lysis of adhesions on Monday 3r. ParQ was held with the patient and her . Consent was signed and dated by her . They understand the risks and benefits of the surgery and agreed to proceed. We discussed that patient has slight higher risk of bowel injury secondary to her multiple intra-abdominal surgeries. -okay to advance diet. NPO at midnight. -replace electrolytes as needed -continue budesonide steroids. -continue inpatient care. We will monitor closely Time-Based Coding :: 20 mins spent with patient and on the chart (including review of chart, obtaining history, exam, reviewing outside data, placing orders, documenting exam and treatment plan, and counseling patient) on 08/18/24 Quality VTE Deep Vein Thrombosis/Pulmonary Embolism Present on Admission: No IH PROFEE Housing Officer Document charge(s): Yes Charge Codes Subsequent inpatient/observation care: [id number]
[2024-08-18] MEDS: PROMETHAZINE 25 MG TABLET PO ×2 (10:10→20:01)
--- NOTE | 2024-08-18 10:18 | PM.PN.1 ---
Subjective Subjective Interval history: 73 F with PMH of crohn's disease admitted with gallstone pancreatitis. Abdominal pain improved, but still requiring some pain medications. Wants to try low fat diet for lunch Exam Vital Signs (past 8 hours): - 08/18/24 05:32 08/18/24 08:00 Temperature 98.6 F 97.4 F L Pulse Rate 80 78 Respiratory Rate 19 16 Blood Pressure 130/66 91/52 L Pulse Oximetry 97 99 Oxygen Flow Rate 0 0 Oxygen Delivery Method Room Air Oxygen Flow Rate 0 Narrative Exam Narrative: Gen: mildly ill appearing but NAD CV: RRR no m/r/g Pulm:CTA b/l Abd: S mild tender RUQ ND Ext: No edema Objective Labs 08/18/24 05:10 08/18/24 05:10 Labs: Laboratory Results - last 24 hr 08/17/24 08/18/24 06:10 05:10 WBC 2.4 L RBC 2.67 L Hgb 8.9 L Hct 26.7 L MCV 100.2 H MCH 33.2 MCHC 33.2 RDW 13.6 Plt Count 186 Total Counted 100 Seg Neutrophils % 45.0 Band Neutrophils % 1.0 L Lymphocytes % (Manual) 51.0 H Monocytes % (Manual) 2.0 Eosinophils % (Manual) 1.0 L Neutrophils # (Manual) 1104 L RBC Morphology See below Macrocytosis 1+ H Sodium 135 L Potassium 4.3 Chloride 116 H Carbon Dioxide 15 L BUN 20 H Creatinine 0.96 Estimated GFR > 60 BUN/Creatinine Ratio 20.8 Glucose 75 L Calcium 7.9 L Phosphorus 2.8 Magnesium 2.0 Total Bilirubin < 0.1 L AST 18 ALT 10 Alkaline Phosphatase 76 Total Protein 4.9 L Albumin 2.3 L Globulin 2.6 Albumin/Globulin Ratio 0.9 L Lipase 797 H D 260 D PFSH Medical History Generalized weakness Small bowel obstruction Surgical History H/O thyroidectomy Family History Mother Diabetes mellitus Heart disease Father Diabetes mellitus Heart disease Brother Myocardial infarction CVA (cerebral vascular accident) Other Hypertension Social History household members: spouse Smoking Status: Never smoker alcohol intake: former Assessment & Plan Assessment & Plan narrative: Acute gallstone pancreatitis, with possible cholecystitis -MRCP without biliary obstruction done 08/17. Improving pain today. Lipase now normal. no bilirubin elevation on labs, no AST/ALT elevations -tenative plan for OR possibly on Monday for cholecystectomy -advance diet to low fat. -will continue ceftriaxone and flagyl for possible cholecystitis on initial CT YUKO - related to pancreatitis and hypovolemia - can stop IV fluids today. Cr of 1.6 already improved to 0.96. COPD/asthma. Chronic, - No clear sign of exacerbation other than some wheezing. The patient is saturating well on room air. Continue inhalers for now. Patient did receive Solu-Medrol in the ER which we will stop at this point as there is no evidence of exacerbation. History of Crohn's disease on daily steroids. - Resume home steroids. Patient did have some enterocolitis side on CT scan. There is no bloody diarrhea. No bowel obstruction seen. Hypothyroidism. chronic - Resume home Synthroid. DVT prophylaxis SCDs for possible surgical intervention. CODE STATUS full code. Disposition likely home in 1 to 2 days after cholecystectomy and pending tolerance of low fat diet. Time-Based Coding :: [TOTAL MINUTES] spent with patient and on the chart (including review of chart, obtaining history, exam, reviewing outside data, placing orders, documenting exam and treatment plan, and counseling patient) on [DATE]. Quality VTE Deep Vein Thrombosis/Pulmonary Embolism Present on Admission: No
--- NOTE | 2024-08-18 10:19 | PT-IP ANOTE ---
Pt discussed in rounds and to have surgery for cholecystectomy next date. Will d/c PT order. Please order again post-op if pt needs skilled therapy. Recommendation on PT eval was home with HH.
[2024-08-18 11:51] LABS: Lipase 309 U/L (23-300)
--- NOTE | 2024-08-18 12:20 | CM.DPNOTE ---
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 Per PT, will cancel PT orders for now due to low H&H and planned OR tomorrow and will need to reorder PT after surgery. Per PN, MOE 1-2 days after cholecystectomy/ability to advance diet. Per previous CM notes, open to HH if recommended, no preference between [facility] or [facility] (just who can start soonest). HH order/referrals/f2f needed. Plan: Discharge home w/spouse is anticipated. Sp to transport. CM team will plan to follow clinical course closely. f/u for HH referral post op. SRIDHAR Duong
[2024-08-18 13:00] VITALS: BP 109/62; PULSE 88; RESP 17; TEMP 36.7; O2SAT 98
[2024-08-18 16:00] VITALS: BP 128/70; PULSE 78; RESP 16; TEMP 36.2; O2SAT 99
[2024-08-18 20:00] VITALS: BP 98/48; PULSE 95; RESP 17; TEMP 35.9; O2SAT 98
[2024-08-18] MEDS: TRAZODONE 50 MG TABLET 300 MG PO (20:00)
[2024-08-18] MEDS: lamoTRIgine 100 MG TABLET 300 MG PO (20:00)
[2024-08-18] MEDS: DIVALPROEX ER 250 MG TAB 1500 MG PO (20:01)
[2024-08-19] VITALS (20 sets, daily range): BP systolic 83–142; BP diastolic 31–93; PULSE 62–87; RESP 7–20; TEMP 35.7–37.3; O2SAT 95–100; BMI 18.7
--- NOTE | 2024-08-19 | PATH_ITS ---
[facility] Accession Number: [id number] . 01 Material submitted: . gallbladder - GALLBLADDER . 01 Diagnosis: GALLBLADDER, CHOLECYSTECTOMY: Chronic cholecystitis with cholelithiasis. Negative for dysplsia and malignancy. See comment. [facility] [place]/23/2024 1508 Local . 01 Comment: The gross finding of a raised and roughened area is noted and the entire region is evaluated microscopically. This area shows features of chronic cholecystitis that are more pronounced than in the other home furnishings sales representative sections. No dysplasia or malignancy is identified. . 01 Electronically signed: . Tawny Doyle DO, Pathologist NPI- [id number] . 01 Gross description: . Received in formalin with two patient identifiers and gallbladder, is a disrupted gallbladder, 6.4 x 3.4 x 2.2 cm, with a roughened phelps-brown external surface. The cystic duct margin is inked blue, and no pericystic lymph node candidate is identified. The lumen contains multiple dark brown to black, roughened calculi, up to 1.4 cm in greatest dimension admixed with green to clear viscous bile. The mucosa shows a 1.8 cm raised, roughened area (overlying serosa inked orange), but otherwise is yellow to green and velvety without pinpoint yellow discolorations. The garrido range from 0.2-0.7 cm in thickness. Plate Worker Helper sections to include the cystic duct margin and full thickness sections are submitted in A1. The entire raised area is submitted in A2.([id number]) /MRV 08/23/2024 1508 Local . 01 Pathologist provided ICD-10: K80.10 . 01 CPT . 727389 Performed at: [address] [id number] MD David Bobo MD Phone: [phone]
[2024-08-19] MEDS: ACETAMINOPHEN 325 MG TABLET 650 MG PO (01:55)
[2024-08-19] MEDS: LEVOTHYROXINE 75 MCG TABLET PO (05:51)
[2024-08-19 07:13] LABS: Alanine Aminotransferase 10 IU/L (<35); Albumin 2.1 g/dL (3.5-5.0); Albumin Globulin Ratio 0.9 (1.0-2.8); Alkaline Phosphatase 68 U/L (38-126); Aspartate Aminotransferase 20 IU/L (14-36); BUN Creatinine Ratio 21.6 (6-22); Bilirubin Total 0.2 mg/dL (0.2-1.3); Blood Urea Nitrogen 19 mg/dL (7-17); Calcium 7.9 mg/dL (8.4-10.2); Carbon Dioxide 15 mmol/L (22-32); Chloride 117 mmol/L (98-107); Estimated Glomerular Filt Rate > 60 mL/min (>60); Globulin 2.4 g/dL (1.7-4.1); Glucose 80 mg/dL (80-110); HEMOLYSIS 18 (0-50); Lipase 266 U/L (23-300); Phosphorous 2.4 mg/dL (2.8-4.1); Sodium 137 mmol/L (137-145); Total Protein 4.5 g/dL (6.3-8.2)
[2024-08-19 07:32] LABS: Hematocrit 28.4 % (36-46); Hemoglobin 9.3 g/dL (12.0-16.0); Mean Corpuscular HGB Conc 32.5 % (30-36); Mean Corpuscular Hemoglobin 32.7 PG (26-34); Mean Corpuscular Volume 100.5 fL (80-100); Platelet Count 171 X10^3/uL (150-400); Red Blood Cell Count 2.83 X10^6/uL (4.0-5.2); Red Cell Distribution Width 13.5 % (11.6-14.8); White Blood Cell Count 3.1 X10^3/uL (4.5-11.0)
[2024-08-19 07:46] LABS: Macrocytosis 1+; Neutrophils Absolute Manual 1271 /uL (3000-5900); Total Cells Counted 100
[2024-08-19] MEDS: metroNIDAZOLE 500 MG/100 ML PIGGYBACK 100 MG IV (08:30)
[2024-08-19] MEDS: HYDROMORPHONE 2 MG INJ IV (08:31)
[2024-08-19] MEDS: BUSPIRONE 5 MG TABLET 15 MG PO ×2 (09:29→20:10)
[2024-08-19] MEDS: risperiDONE 0.25 MG TABLET PO ×2 (09:29→20:10)
[2024-08-19] MEDS: BUDESONIDE 3 MG CAP 9 MG PO (09:29)
--- NOTE | 2024-08-19 09:43 | PM.PREOP ---
Pre-operative Note Interval Note History & Physical reviewed/Exam performed by Physician: Yes Changes to H&P: No H&P completed within 30 days and has changed as indicated here:: I have reviewed consult H&P from 08/17/24. Will proceed with laparoscopic cholecystectomy, lysis of adhesions and intra-operative cholangiogram ASA Class (for procedural sedation): III
[2024-08-19] MEDS: ALBUTEROL/IPRATROPIUM 3 ML AMPUL INH (10:04)
[2024-08-19] MEDS: cefTRIAXone 1,000 MG in SODIUM CHLORIDE 0.9% 100 ML 200 MG IV (10:07)
--- NOTE | 2024-08-19 11:13 | DIET.CONS ---
Dietary Consultation Note Admission Date: 08/16/2024 20:57 Assessment: 73 y F admitted for gallstone pancreatitis. Dietitian screened for low MNA score. Pt having lap sue, EMR reviewed. PMH Crohn's disease on daily steroids. Per ER report, pt has developed N/V/D and abd pain for 1 wk prior to admission and reports loss of 10 lb this past month. 25% recorded PO intakes of low fat diet yesterday. Ht: 152.4 cm Wt: 43.5 kg BMI: 18.7 (underweight for age) UBW: 52.163 kg on 03/20/24 (-16.5% weight loss within 5 months, severe), 55.338 kg on 02/04/24 (-21% within 1 year, severe) Last BM: 08/19/24 (08/19/24 10:21) MNA: 8 Sean Score: 19 Diet: 08/19/24 00:01 NPO Diet Diet Modifications: NPO Type: NPO except for Meds Nutrition Percent Meal Consumed 25% 08/18/24 18:00 Percent Meal Consumed 25% 08/18/24 13:00 Labs: RBC 2.83 X10^6/uL (4.0-5.2) L 08/19/24 07:16 Hgb 9.3 g/dL (12.0-16.0) L 08/19/24 07:16 Hct 28.4 % (36-46) L 08/19/24 07:16 Creatinine 0.88 mg/dL (0.52-1.04) 08/19/24 06:17 Lactate 1.8 mmol/L (0.7-2.1) 08/16/24 18:15 Nutrition Diagnosis: Unintentional weight loss r/t alterations in the GI tract/structure aeb 16.5% weight loss within past 6 months, pt reports 10 lb loss in 1 month Interventions: -Will f/u tomorrow regarding diet per surgery and tolerance Electronically Signed by: Mela Lara 08/19/24 11:13 Clinical Dietitian [address] [id number]
--- NOTE | 2024-08-19 11:24 | SUR.OPER ---
Supine on padded OR bed, head on pillow, safety belt at thigh, left arm padded and tucked at side. Right arm secured on padded arm board <90 degrees abduction. Legs uncrossed. Padded footboard in place. Tape over blanket to secure lower legs.
[2024-08-19] MEDS: BUPIVACAINE 0.25% W/ EPI 30 ML VIAL INJ (11:42)
[2024-08-19] MEDS: iopamidoL 30 ML VIAL INJ (12:32)
--- NOTE | 2024-08-19 12:53 | DI.RAD.S_ITS ---
PROCEDURE: XR CHOLANGIOGRAM OPERATIVE INDICATIONS: CHOLANGIOGRAM COMPARISON: [facility], MR, MR ABDOMEN WO/W CON, 08/17/2024, 10:06. FINDINGS: Biliary ducts: The surgeon injected contrast into the biliary ducts after cannulation of the cystic duct stump. Visualized intra- and extrahepatic bile ducts are normal in caliber, without strictures. No intraluminal filling defects to suggest retained ductal stones or sludge. No evidence for iatrogenic ductal injury. Duodenum: Contrast flows promptly through the sphincter of Oddi into the duodenum, which appears normal in caliber. IMPRESSION: No filling defect identified. Dictated by: Mariano Bender M.D. on 08/19/2024 at 14:59 Approved by: Mariano Bender M.D. on 08/19/2024 at 15:00
[2024-08-19] MEDS: LACTATED RINGERS 1,000 ML 42 ML IV (12:54)
--- NOTE | 2024-08-19 13:44 | PM.OP.1 ---
Operative Date/Time/Diagnoses Date of procedure: 08/19/24 Time of procedure: 13:46 Pre-op diagnosis: Gallstone pancreatitis Post-op diagnosis: same Procedure & Clinicians Procedure: 1. Laparoscopic cholecystectomy with intraoperative cholangiogram 2. Laparoscopic lysis of adhesions Same procedure as scheduled: Yes Indications: This is a 73-year-old woman with multiple co-morbidities who presented to the hospital with acute pancreatitis. CT abdomen and pelvis demonstrated distended gallbladder with cholelithiasis. MRCP was performed to evaluate for choledocholithiasis it was negative for that as well as negative for acute pancreatitis. Patient's lipase was greater than 2000 upon admission and has progressively improved daily. Surgeon: Lizzy Flores Click Yes if Unassisted: No Anesthesia Type: General Operative Notes Closure Type: primary Specimen(s): other ( Gallbladder) Prosthetic devices, grafts, tissues, transplants, or devices: none Estimated Blood Loss (mL): 100 Blood products transfused: none Procedure in detail: The patient was brought to the operating room and placed supine on the operating room table. General endotracheal anesthesia was induced and the patient was intubated without incident. The patient's abdomen was prepped in the usual sterile fashion. A routine time-out was performed which confirmed the patient, procedure, preoperative scheduled antibiotics were administered all team members were in agreement. At garza's point, a Veress needle was inserted. Saline drop test was performed which confirmed intra-abdominal location of the needle. Next the abdomen was insufflated to a pressure of 15 mmHg. The patient was able to tolerate pneumoperitoneum without incident. A 5 mm trocar site was created infraumbilically. Using the Optiview technique, a 5 mm trocar was inserted into the abdomen without incident. The patient was noted to have no adhesions to the anterior abdominal wall. The Veress needle was identified and no underlying injury to the bowel was identified. This was subsequently removed. We proceeded with placing 3 additional trocars. One 12 mm trocar was placed subxiphoid, 2 additional 5 mm trocars were placed in the right mid and lower quadrants. We proceeded with identifying the gallbladder. Patient was noted to have small bowel adherent to the entire fundus of the gallbladder. The gallbladder was noted to be significantly distended and difficult to grasp. And needle aspirated was inserted into the gallbladder and proximally 45 cc of bile was aspirated. This was not sent to pathology. Using a combination of blunt dissection, Metzenbaum scissors and the Olympus endo Shear, these adhesions were transected from the gallbladder. After proximally about 30 minutes of dissection and lysis of adhesions we proceeded with identifying the infundibulum of the gallbladder. The cystic duct was identified and circumferentially dissected. The cystic artery was identified. This was also circumferentially dissected. Using the 5 mm clip pvc loader the cystic artery was clipped and cut. Of note this initial cystic artery was not the main cystic artery that was found more medially. This was circumferentially dissected clipped twice proximally and once distally. This was transected using Metzenbaum scissors. We then placed a 10 mm clip on the cystic duct. Metzenbaum scissors were used to create a ductotomy. The cholangiogram catheter was inserted into the cystic duct. We proceeded with performing the cholangiogram at this time. With instillation of diluted Omnipaque contrast, the cholangiogram was performed using the C-arm and fluoroscopy. There was no filling defects noted within the hepatic duct as well as C main common bile duct. There was dilation of the common bile duct and emptying of the contrast into the duodenal without incident. The cholangiogram catheter was moved in this concluded the cholangiogram. We proceeded with clipping the cystic duct proximally using the 10 mm clip pvc loader with 3 clips. The duct was transected. We proceeded with transection of the gallbladder from the gallbladder fossa. There was small amount of oozing noted from the adhesions that were previously transected. Using a combination of the L hook and electrocautery and the Optiview endo Shear, hemostasis was obtained. The 12 mm trocar fascia was closed using the Justin-Donaldo suture Passer using 0 Vicryl suture. Due to the oozing nature Of the adhesions though this tissue we proceeded with placing Tisseel in the gallbladder fossa. The pneumoperitoneum was evacuated after the 5 mm trocars were removed. all trocar sites were closed with interrupted 4-0 Vicryl sutures. The skin was dressed with Dermabond. The patient tolerated the procedure well was subsequently extubated without incident. I was present and scrubbed for the entirety of the operation. At the end of the operation all needle, sponge, instrument counts were correct. Complications: none Post-operative Condition: stable Disposition: PACU Plan for aftercare: Transfer to the floor postoperatively
[2024-08-19] MEDS: ACETAMINOPHEN IV 1,000 MG/100 ML VIAL 400 MG IV (14:06)
--- NOTE | 2024-08-19 14:18 | PM.PN.1 ---
Subjective Subjective Interval history: 73 F with PMH of crohn's disease admitted with gallstone pancreatitis. Tolerated low fat diet yesterday but had some nausea and bloating requiring pain medication. Planned for lap sue today. Exam Vital Signs (past 8 hours): - 08/19/24 08:08 08/19/24 10:21 08/19/24 13:32 Temperature 99 F 99.2 F 98.0 F Pulse Rate 62 75 72 Respiratory Rate 15 13 10 L Blood Pressure 111/44 L 90/56 L 83/43 L Pulse Oximetry 100 98 98 Oxygen Delivery Method Room Air Room Air 08/19/24 13:40 08/19/24 13:46 08/19/24 13:50 Temperature Pulse Rate 75 73 77 Respiratory Rate 10 L 10 L 8 L Blood Pressure 86/43 L 88/46 L 87/31 L Pulse Oximetry 100 98 99 Oxygen Delivery Method Room Air Room Air Room Air 08/19/24 13:57 08/19/24 14:03 08/19/24 14:11 Temperature Pulse Rate 79 75 74 Respiratory Rate 8 L 10 L 7 L Blood Pressure 94/43 L 95/50 L 89/47 L Pulse Oximetry 98 99 98 Oxygen Delivery Method Room Air Room Air Room Air Oxygen Delivery Method Room Air Oxygen Flow Rate 0 Narrative Exam Narrative: Gen: mildly ill appearing but NAD CV: RRR no m/r/g Pulm:CTA b/l Abd: S NT ND Ext: No edema Objective Labs 08/19/24 07:16 08/19/24 06:17 Labs: Laboratory Results - last 24 hr 08/19/24 08/19/24 06:17 07:16 WBC 3.1 L RBC 2.83 L Hgb 9.3 L Hct 28.4 L MCV 100.5 H MCH 32.7 MCHC 32.5 RDW 13.5 Plt Count 171 Total Counted 100 Seg Neutrophils % 41.0 Lymphocytes % (Manual) 47.0 H Monocytes % (Manual) 8.0 Eosinophils % (Manual) 4.0 Neutrophils # (Manual) 1271 L RBC Morphology See below Macrocytosis 1+ H Sodium 137 Potassium 4.0 Chloride 117 H Carbon Dioxide 15 L BUN 19 H Creatinine 0.88 Estimated GFR > 60 BUN/Creatinine Ratio 21.6 Glucose 80 Calcium 7.9 L Phosphorus 2.4 L Total Bilirubin 0.2 AST 20 ALT 10 Alkaline Phosphatase 68 Total Protein 4.5 L Albumin 2.1 L Globulin 2.4 Albumin/Globulin Ratio 0.9 L Lipase 266 PFSH Medical History Generalized weakness Small bowel obstruction Surgical History H/O thyroidectomy Family History Mother Diabetes mellitus Heart disease Father Diabetes mellitus Heart disease Brother Myocardial infarction CVA (cerebral vascular accident) Other Hypertension Social History household members: spouse Smoking Status: Never smoker alcohol intake: former Assessment & Plan Assessment & Plan narrative: Acute gallstone pancreatitis, with possible cholecystitis -MRCP without biliary obstruction done 08/17. Improving pain but did recur with low fat diet yesterday. Lipase now normal. no bilirubin elevation on labs, no AST/ALT elevations -OR for cholecystectomy today -will see diet tolerance after surgery -continued ceftriaxone and flagyl for possible cholecystitis on initial CT, will stop after OR. YUKO - related to pancreatitis and hypovolemia - Stopped IV fluids 08/18. Cr of 1.6 already improved to 0.96. COPD/asthma. Chronic, - No clear sign of exacerbation other than some wheezing. The patient is saturating well on room air. Continue inhalers for now. Patient did receive Solu-Medrol in the ER which we will stop at this point as there is no evidence of exacerbation. History of Crohn's disease on daily steroids. - Resume home steroids. Patient did have some enterocolitis side on CT scan. There is no bloody diarrhea. No bowel obstruction seen. Hypothyroidism. chronic - Resume home Synthroid. DVT prophylaxis SCDs for possible surgical intervention. CODE STATUS full code. Disposition likely home tomorrow pending tolerance of diet and pancreatitis pain. Time-Based Coding :: [TOTAL MINUTES] spent with patient and on the chart (including review of chart, obtaining history, exam, reviewing outside data, placing orders, documenting exam and treatment plan, and counseling patient) on [DATE]. Quality VTE Deep Vein Thrombosis/Pulmonary Embolism Present on Admission: No
--- NOTE | 2024-08-19 14:47 | CM.DPC ---
DCP HH Planning: Per MD, pt to have Lap Beth today with Surgeon and pending pt's ability to tolerate diet and pain management might be stable for d/c home tomorrow 08/20. Per PT, recommending home with HH. Pt and spouse confirm they are likely agreeable to HH and no HH preference between [facility] referral made based on vendor calendar and they confirm they can accept. F2F completed but not sent yet. Pt now off floor in OR for surgical intervention. Plan: SW to follow for plan of likely home tomorrow Tu via spouse POV and new [facility] and to fax d/c summary, F2F and orders to [facility] at discharge. SRIDHAR Sprague
[2024-08-19] MEDS: LACTATED RINGERS 1,000 ML 1000 ML IV (15:28)
[2024-08-19] MEDS: DEXTROSE 5%-LACTATED RINGERS 1,000 ML 125 ML IV (16:16)
--- NOTE | 2024-08-19 16:41 | PC.NURSE ---
Addendum entered by Paola Carrera R.N. 08/19/24 18:33: Pts blood pressure after bolus given, she briefly woke up but fell back to sleep Original Note: Patients pressures have been soft, she just received a 1L bolus of LR, hightest pressure was 104/50. She is asymptomatic and is sleeping.
[2024-08-19] MEDS: ACETAMINOPHEN 325 MG TABLET 975 MG PO (19:44)
[2024-08-19] MEDS: OXYCODONE IR 5 MG TABLET PO (19:45)
[2024-08-19] MEDS: TRAZODONE 50 MG TABLET 300 MG PO (20:09)
[2024-08-19] MEDS: lamoTRIgine 100 MG TABLET 300 MG PO (20:10)
[2024-08-19] MEDS: HYDROMORPHONE 1 MG INJ IV (20:25)
[2024-08-20] MEDS: MORPHINE 2 MG/ML INJ IV (00:01)
[2024-08-20 00:15] VITALS: BP 117/79; PULSE 81; RESP 19; TEMP 36.3; O2SAT 100
[2024-08-20 04:00] VITALS: BP 111/88; PULSE 69; RESP 19; TEMP 36.2; O2SAT 98
[2024-08-20] MEDS: HYDROMORPHONE 1 MG INJ IV ×2 (04:22→08:41)
[2024-08-20] MEDS: LEVOTHYROXINE 75 MCG TABLET PO (06:00)
[2024-08-20 08:00] VITALS: BP 121/64; PULSE 77; RESP 12; TEMP 36.9; O2SAT 97
[2024-08-20] MEDS: ONDANSETRON 4 MG/2 ML INJ IV (08:41)
[2024-08-20] MEDS: risperiDONE 0.25 MG TABLET PO ×3 (08:42→20:38)
[2024-08-20] MEDS: ACETAMINOPHEN 325 MG TABLET 975 MG PO (08:42)
[2024-08-20] MEDS: BUSPIRONE 5 MG TABLET 15 MG PO ×2 (08:42→20:39)
[2024-08-20] MEDS: hydrOXYzine HCL 25 MG TABLET PO (08:45)
--- NOTE | 2024-08-20 10:53 | CM.DPC ---
DCP Cont. Reviewed EMR and team rounds for status updates. Pt has been medically cleared for home d/c. Faxed f/f orders to [facility] for OP f/u. No further CM d/c assistance/resource needs are identified at this time.
[2024-08-20 12:00] VITALS: BP 107/61; PULSE 73; RESP 18; TEMP 36.7; O2SAT 97
[2024-08-20] MEDS: LIDOCAINE 5% PATCH 1 EACH TOP (12:23)
[2024-08-20] MEDS: KETOROLAC 10 MG TABLET PO ×2 (12:23→20:40)
[2024-08-20] MEDS: OXYCODONE IR 5 MG TABLET PO ×3 (12:23→19:59)
[2024-08-20] MEDS: BUDESONIDE 3 MG CAP 9 MG PO (12:24)
--- NOTE | 2024-08-20 12:29 | PM.PN.IH.1 ---
Subjective Subjective Date Patient Seen: 08/20/24 Time Patient Seen: 10:20 Interval history: Patient has been well controlled. Complains of right shoulder pain and neck pain. States that she was able to tolerate breakfast. She is concerned about going home Exam Vital Signs (past 8 hours): - 08/20/24 07:45 08/20/24 08:00 Temperature 98.4 F Pulse Rate 77 Respiratory Rate 12 Blood Pressure 121/64 Pulse Oximetry 97 Oxygen Delivery Method Room Air Oxygen Delivery Method Room Air Oxygen Flow Rate 0 Const General: cooperative, comfortable and frail appearing [facility] Head: normal to inspection and normocephalic Eyes General: appearance normal, both eyes and all related structures Neck Neck: normal visual inspection Chest Chest: normal inspection of the chest Resp Effort & Inspection: normal respiratory effort GI Inspection: normal to inspection and incision ( all incisions are clean dry and intact) Palpation: soft, No guarding and tender ( appropriate tenderness to palpation) Percussion: no tympanic to percussion Back/Spine/Pelvis Back: normal to inspection Skin General: no rashes or lesions noted Lesions: no lesions Neuro General: patient alert, patient awake and patient oriented x3 Extrem General: normal to inspection Psych Appearance: grossly normal Speech and Movement: speech and movement normal Objective Labs 08/19/24 07:16 08/19/24 06:17 Labs: Laboratory Results - last 24 hr 08/19/24 06:17 Lipase Cancelled [facility] Medical History Generalized weakness Small bowel obstruction Surgical History H/O thyroidectomy Family History Mother Diabetes mellitus Heart disease Father Diabetes mellitus Heart disease Brother Myocardial infarction CVA (cerebral vascular accident) Other Hypertension Social History household members: spouse Smoking Status: Never smoker alcohol intake: former Assessment & Plan Time-Based Coding :: 15 minutes spent with patient and on the chart (including review of chart, obtaining history, exam, reviewing outside data, placing orders, documenting exam and treatment plan, and counseling patient) on August 20, 2024 Quality VTE Deep Vein Thrombosis/Pulmonary Embolism Present on Admission: No [facility] Body Maker Document charge(s): Yes Charge Codes Subsequent inpatient/observation care: [id number]
--- NOTE | 2024-08-20 13:45 | PM.DS.1 ---
History of Present Illness History of Present Illness Date Patient Seen: 08/20/24 Time Patient Seen: 13:45 Chief complaint: Resp infection,Diarrhea,Vomiting Narrative: Per admitting provider, 73-year-old female with past medical history of ulcerative colitis status post total colectomy in 1992, Crohn's disease on chronic steroids, asthma non-O2 dependent, bipolar, and hypertension presents with complaint of shortness of breath, coughing, nausea, vomiting and diarrhea. Per the patient's report, over the last month, the patient has been on and off with shortness of breath and a dry cough. Starting last week the patient also had nausea, nonbloody vomiting and diarrhea. The patient states that her diarrhea has no blood and is only with light brown watery stool. The patient denies any recent antibiotic use or recent sick contact. The patient however denies any fever, chills, chest pain, abdominal pain or dysuria. The patient states that over the last few days the patient's cough has been more productive and has increased wheezing. In our emergency room, the patient was hemodynamically stable. The patient WBC was 3.9 but lactate was normal. Chest x-ray shows no sign of pneumonia. The patient was saturating well on room air but was having wheezing and some respiratory distress. IV Solu-Medrol was given. CT scan of the abdomen shows possible dilated common bile duct with signs of distended gallbladder. There were visible gallstones. There was also sign of possible enterocolitis. Lipase was in the 5000s. Bilirubin and LFTs were all normal. General surgery was consulted and recommended that we admit the patient for IV antibiotic, n.p.o., IV fluid, pain control, MRCP and possible cholecystectomy. The patient was given IV ceftriaxone, IV Flagyl, IV Solu-Medrol, DuoNebs pain medication and IV fluid. Discharge Providers Provider Date of admission: 08/16/24 20:57 Discharge Date: 08/20/24 Primary care physician: Judy Davison MD Consults: 08/16/24 20:57 Consult to Physical Therapy Evaluate & Treat Comment: Physician Instructions: Evaluate and Treat Discharge provider: Zane Bowie DO Summary Hospital Course Discharge Diagnosis: Acute gallstone pancreatitis, with possible cholecystitis, POA, improved YUKO COPD/asthma. Chronic, History of Crohn's disease on daily steroids. Hypothyroidism. chronic Hospital Course: This is a 73-year-old female with a past medical history of Crohn's disease on daily steroids, hypothyroidism, COPD who was admitted with gallstone pancreatitis and possible cholecystitis. Initially her abdominal pain improved with bowel rest, IV fluids, and pain medications. Her diet was slowly advancement and she was able to tolerate a low-fat diet prior to her laparoscopic cholecystectomy on August 19. She was initially on antibiotics which were stopped after surgery on August 19. On August 20 she had anticipated incisional and right shoulder pain, controlled with oral pain medications. She was tolerating a low-fat diet at breakfast and lunch without significant nausea or vomiting. She was stable for discharge home. She had lost IV access on the day of discharge, and labs were unable to be drawn, but she was clinically doing well and was only requiring oral pain medications. She continued to express concerns about discharge home, mainly related to concerns about pain medications. After surgery she was preferentially asking for IV medications which were discontinued the following morning. She did request home health referral which was sent. Time Spent with Patient Time spent: Greater than 30 minutes Exam Vital Signs (past 8 hours): - 08/20/24 07:45 08/20/24 08:00 08/20/24 12:00 Temperature 98.4 F 98.0 F Pulse Rate 77 73 Respiratory Rate 12 18 Blood Pressure 121/64 107/61 Pulse Oximetry 97 97 Oxygen Delivery Method Room Air Oxygen Flow Rate 0 Oxygen Delivery Method Room Air Oxygen Flow Rate 0 Narrative Exam Narrative: Gen: mildly ill appearing but NAD CV: RRR no m/r/g Pulm:CTA b/l Abd: S, appropriately tender, non-distended. Incisions c/d/i. Ext: No edema Objective Labs 08/19/24 07:16 08/19/24 06:17 Labs: Laboratory Results - last 24 hr 08/19/24 06:17 Lipase Cancelled [facility] Medical History Generalized weakness Small bowel obstruction Surgical History H/O thyroidectomy Family History Mother Diabetes mellitus Heart disease Father Diabetes mellitus Heart disease Brother Myocardial infarction CVA (cerebral vascular accident) Other Hypertension Social History household members: spouse Smoking Status: Never smoker alcohol intake: former Discharge Plan Discharge Plan Patient Disposition: Home Health Service Provider Discharge Comment: You were admitted to the hospital with gallstone pancreatitis. You have anticipated pain after surgery to remove your gallbladder. You are tolerating a diet. cleared for discharge home. Home health referral provided. Discharge orders & Medications Prescriptions: New acetaminophen 325 mg Tablet 975 mg PO Q8H PRN (Reason: Pain, Mild (1-3)) Qty: 30 0RF hydroxyzine HCl 25 mg Tablet 25 mg PO Q6H PRN (Reason: Pain, Mild (1-3)) 7 Days Qty: 20 0RF oxycodone 5 mg Tablet 5 mg PO Q3HR PRN (Reason: Pain, Severe (7-10)) 7 Days Qty: 20 0RF Continued losartan 25 MG tablet 75 mg PO QDAY Qty: 0 levothyroxine [Synthroid] 75 MCG tablet 0.075 mg PO QDAY Qty: 0 albuterol sulfate [Ventolin HFA] 90 MCG/PUFF HFA aerosol inhaler 2 puff INH Q4HP PRN (Reason: Bronchospasm) Qty: 0 lamotrigine [Lamictal] 200 MG tablet 300 mg PO BEDTIME Qty: 0 Rx Instructions: pt reportedly taking 150mg 2 tabs daily at bedtime divalproex 500 MG tablet extended release 24 hr 1,500 mg PO HS Qty: 0 acetaminophen [Tylenol Extra Strength] 500 MG tablet 1,000 mg PO Q6HP PRN (Reason: Abdominal Discomfort) risperidone 0.25 mg tablet 0.25 mg PO TID buspirone 15 mg tablet 15 mg PO BID budesonide 3 mg Capsule,Delayed,Extend.Release 9 mg PO DAILY Qty: 1 0RF trazodone 50 mg tablet 300 mg PO BEDTIME Rx Instructions: pt reportedly taking 100mg 3 Tabs qhs scopolamine base [Transderm-Scop] 1 mg over 3 days Patch 3 Day 1 patch topical Q72H Qty: 6 0RF promethazine 25 mg tablet 25 mg PO TID PRN (Reason: nausea and vomiting) Qty: 20 0RF Follow up/Referrals: Judy Davison MD [Primary Care Provider] - Diet/Activity/Treatments Diet: Diet as Tolerated and Low-fat Activity: As tolerated, no heavy lifting >10 lbs until surgical follow up Visit Report/Discharge Packet Instructions: DI for Pancreatitis, DI for Laparoscopic Cholecystectomy Stand Alone Forms: Patient Portal/API, Stroke Signs & Symptoms Discharge Data Primary Care Provider: Judy Davison Quality VTE Deep Vein Thrombosis/Pulmonary Embolism Present on Admission: No
[2024-08-20 16:00] VITALS: BP 107/61; PULSE 70; RESP 15; TEMP 36.7; O2SAT 98
--- NOTE | 2024-08-20 17:26 | DIET.CONS ---
Dietary Consultation Note Admission Date: 08/16/2024 20:57 Assessment: 73 y F admitted for gallstone pancreatitis, had lap sue. Dietitian screened for low MNA. Met with pt at bedside this afternoon who reports decreased appetite for last month d/t RSV and worsening appetite in past week with N/V/D and abd pain. Usually has 3 meals per day. Was doing 2 smaller meals over last month, with decreasing amount this past week of just a few bites or <50% of the 2 meals. Confirms loss of 10 lb within 1 month. UBW is 120 lb (54.54 kg). Has questions regarding nutrition for crohns and also reports recent dx of CKD3a from different provider in [place]. Wants to see dietitian for outpatient appt. Is transferring her care locally from [place]. Ht: 152.4 cm Wt: 43.5 kg BMI: 18.7 UBW: 52.163 kg on 03/20/24 (-16.5% weight loss within 6 months, severe), 49.5 kg 1 month ago (-10% weight loss within 1 month, severe) Last BM: 08/19/24 (08/19/24 22:24) MNA: 8 Sean Score: 20 Diet: 08/19/24 Dinner Low/restricted Fat Diet Diet Modifications: Dietary Fat allowed: 25 grams (pancreatitis) Food Texture: Level 7 - Regular Liquid Consistency: Level 0 - Thin Nutrition Percent Meal Consumed 100% 08/20/24 17:17 Percent Meal Consumed 75% 08/20/24 14:21 Percent Meal Consumed 25% 08/20/24 09:05 Percent Meal Consumed 25% 08/18/24 18:00 Labs: RBC 2.83 X10^6/uL (4.0-5.2) L 08/19/24 07:16 Hgb 9.3 g/dL (12.0-16.0) L 08/19/24 07:16 Hct 28.4 % (36-46) L 08/19/24 07:16 Creatinine 0.88 mg/dL (0.52-1.04) 08/19/24 06:17 Lactate 1.8 mmol/L (0.7-2.1) 08/16/24 18:15 Nutrition Diagnosis: Severe acute Protein Calorie Malnutrition r/t alterations in the GI tract/accessory organs and inadequate oral intake aeb <50% estimated energy needs for 7 days, 10% weight loss within 1 month, and BMI underweight for age (18.7) Interventions: Improving PO intakes, discussed small freq meals and ONS options, Ensure trial provided at lunch Provided handout on IBD nutrition therapy and reviewed Provided information on outpatient dietitian referral here at Monitoring/Evaluations: PO intakes Electronically Signed by: Mela Lara 08/20/24 17:26 Clinical Dietitian [address] [id number]
[2024-08-20 20:00] VITALS: BP 132/65; PULSE 69; RESP 14; TEMP 36.1; O2SAT 100
[2024-08-20] MEDS: TRAZODONE 50 MG TABLET 300 MG PO (20:37)
[2024-08-20] MEDS: lamoTRIgine 100 MG TABLET 300 MG PO (20:38)
[2024-08-20] MEDS: DIVALPROEX ER 250 MG TAB 1500 MG PO (20:41)
[2024-08-21 01:22] VITALS: BP 97/58; PULSE 75; RESP 16; TEMP 36.6; O2SAT 97
[2024-08-21] MEDS: OXYCODONE IR 5 MG TABLET PO ×4 (01:24→14:44)
[2024-08-21 04:48] VITALS: BP 110/49; PULSE 70; RESP 16; TEMP 36.7; O2SAT 98
[2024-08-21] MEDS: LEVOTHYROXINE 75 MCG TABLET PO (05:55)
[2024-08-21] MEDS: KETOROLAC 10 MG TABLET PO ×2 (06:00→15:16)
[2024-08-21 08:00] VITALS: BP 133/100; PULSE 80; RESP 16; TEMP 36.7; O2SAT 98
[2024-08-21] MEDS: BUDESONIDE 3 MG CAP 9 MG PO (10:38)
[2024-08-21] MEDS: risperiDONE 0.25 MG TABLET PO ×2 (10:39→15:17)
[2024-08-21] MEDS: BUSPIRONE 5 MG TABLET 15 MG PO (10:39)
[2024-08-21] MEDS: SODIUM CHLORIDE 0.9% FLUSH 10 ML IV (10:40)
[2024-08-21 11:00] VITALS: BP 101/59; PULSE 75
--- NOTE | 2024-08-21 11:11 | PM.PN.IH.1 ---
Subjective Subjective Date Patient Seen: 08/21/24 Time Patient Seen: 11:11 Interval history: Patient overall feels better today. Pain is well controlled. Denies any nausea or emesis. Exam Vital Signs (past 8 hours): - 08/21/24 04:48 08/21/24 08:00 08/21/24 11:00 Temperature 98.1 F 98.0 F Pulse Rate 70 80 75 Respiratory Rate 16 16 Blood Pressure 110/49 L 133/100 H 101/59 L Pulse Oximetry 98 98 Oxygen Flow Rate 0 0 Oxygen Delivery Method Room Air Oxygen Flow Rate 0 Narrative Exam Narrative: Gen: mildly ill appearing but NAD CV: No chest pain Pulm: Nonlabored Abd: S, appropriately tender, non-distended. Incisions c/d/i. Ext: No edema Objective Labs 08/19/24 07:16 08/19/24 06:17 PFSH Medical History Generalized weakness Small bowel obstruction Surgical History H/O thyroidectomy Family History Mother Diabetes mellitus Heart disease Father Diabetes mellitus Heart disease Brother Myocardial infarction CVA (cerebral vascular accident) Other Hypertension Social History household members: spouse Smoking Status: Never smoker alcohol intake: former Assessment & Plan Assessment and plan (1) Gallstone pancreatitis: Status: Acute (2) Acute cholecystitis: Status: Acute Assessment & Plan narrative: This is a 73-year-old woman postop day 2. Status post laparoscopic cholecystectomy for gallstone pancreatitis. Patient appears to be recovering well. -low-fat diet x4 weeks -discharged home postprocedure -multimodal pain control -follow up in general surgery clinic in 2 weeks Quality VTE Deep Vein Thrombosis/Pulmonary Embolism Present on Admission: No [facility] [employer] Services Associate Document charge(s): Yes Charge Codes Subsequent inpatient/observation care: [id number]
--- NOTE | 2024-08-21 14:00 | PM.PN.1 ---
Exam Vital Signs (past 8 hours): - 08/21/24 08:00 08/21/24 11:00 Temperature 98.0 F Pulse Rate 80 75 Respiratory Rate 16 Blood Pressure 133/100 H 101/59 L Pulse Oximetry 98 Oxygen Flow Rate 0 Oxygen Delivery Method Room Air Oxygen Flow Rate 0 Objective Labs 08/19/24 07:16 08/19/24 06:17 [facility] Medical History Generalized weakness Small bowel obstruction Surgical History H/O thyroidectomy Family History Mother Diabetes mellitus Heart disease Father Diabetes mellitus Heart disease Brother Myocardial infarction CVA (cerebral vascular accident) Other Hypertension Social History household members: spouse Smoking Status: Never smoker alcohol intake: former Assessment & Plan Time-Based Coding :: [TOTAL MINUTES] spent with patient and on the chart (including review of chart, obtaining history, exam, reviewing outside data, placing orders, documenting exam and treatment plan, and counseling patient) on [DATE]. Quality VTE Deep Vein Thrombosis/Pulmonary Embolism Present on Admission: No
--- NOTE | 2024-08-21 14:24 | CM.DPC ---
DCP Cont. Reviewed EMR and team rounds for status updates. Pt's appeal was denied by [facility], and her d/c was upheld. Her plan is to have her transport her home once he gets off of work. Pt understands the determination of the appeal, and had no further questions/concerns.
--- NOTE | 2024-08-21 14:49 | P.DS_ITS ---
History of Present Illness History of Present Illness Chief complaint: Resp infection,Diarrhea,Vomiting Narrative: From H&P: 73-year-old female with past medical history of ulcerative colitis status post total colectomy in 1992, Crohn's disease on chronic steroids, asthma non-O2 dependent, bipolar, and hypertension presents with complaint of shortness of breath, coughing, nausea, vomiting and diarrhea. Per the patient's report, over the last month, the patient has been on and off with shortness of breath and a dry cough. Starting last week the patient also had nausea, nonbloody vomiting and diarrhea. The patient states that her diarrhea has no blood and is only with light brown watery stool. The patient denies any recent antibiotic use or recent sick contact. The patient however denies any fever, chills, chest pain, abdominal pain or dysuria. The patient states that over the last few days the patient's cough has been more productive and has increased wheezing. In our emergency room, the patient was hemodynamically stable. The patient WBC was 3.9 but lactate was normal. Chest x-ray shows no sign of pneumonia. The patient was saturating well on room air but was having wheezing and some respiratory distress. IV Solu-Medrol was given. CT scan of the abdomen shows possible dilated common bile duct with signs of distended gallbladder. There were visible gallstones. There was also sign of possible enterocolitis. Lipase was in the 5000s. Bilirubin and LFTs were all normal. General surgery was consulted and recommended that we admit the patient for IV antibiotic, n.p.o., IV fluid, pain control, MRCP and possible cholecystectomy. The patient was given IV ceftriaxone, IV Flagyl, IV Solu-Medrol, DuoNebs pain medication and IV fluid. Discharge Providers Provider Date of admission: 08/16/24 20:57 Discharge Date: 08/21/24 Primary care physician: Judy Davison MD Consults: 08/16/24 20:57 Consult to Physical Therapy Evaluate & Treat Comment: Physician Instructions: Evaluate and Treat Discharge provider: Yonas Solo MD Summary Hospital Course Discharge Diagnosis: 1. Acute gallstone pancreatitis, with possible cholecystitis. POA, improved. 2. YUKO. POA, improved 3. COPD/asthma. Chronic, stable. 4. Crohn's disease on daily steroids. Chronic and stable. 5. URI, POA. Hospital Course: This is a 73-year-old female with a past medical history of Crohn's disease on daily steroids, hypothyroidism, COPD who was admitted with gallstone pancreatitis and possible cholecystitis. Initially her abdominal pain improved with bowel rest, IV fluids, and pain medications. Her diet was slowly advancement and she was able to tolerate a low-fat diet prior to her laparoscopic cholecystectomy on August 19. She was initially on antibiotics which were stopped after surgery on August 19. On August 20 she had anticipated incisional and right shoulder pain, controlled with oral pain medications. She was tolerating a low-fat diet at breakfast and lunch without significant nausea or vomiting. She was stable for discharge home. She had lost IV access on the day of discharge, and labs were unable to be drawn, but she was clinically doing well and was only requiring oral pain medications. She continued to express concerns about discharge home, mainly related to concerns about pain medications. After surgery she was preferentially asking for IV medications which were discontinued the following morning. She did request home health referral which was sent. Status at Discharge Cognitive/behavioral status at discharge: oriented Functional status at discharge: independent ambulation Overall status at discharge: patient is progressing back to baseline Time Spent with Patient Time spent: Greater than 30 minutes Exam Vital Signs (past 8 hours): - 08/21/24 08:00 08/21/24 11:00 Temperature 98.0 F Pulse Rate 80 75 Respiratory Rate 16 Blood Pressure 133/100 H 101/59 L Pulse Oximetry 98 Oxygen Flow Rate 0 Oxygen Delivery Method Room Air Oxygen Flow Rate 0 Narrative Exam Narrative: NAD, alert and oriented. Fluent speech. Lungs are clear, normal rate and effort. Heart is regular, no murmur gallop or rub. Abdomen is soft, non distended. Extremities are free of edema. Objective ECG Impression: Intervals [place] Rate: 67 P: 31 FL: 148 QRS: 54 QRSD: 82 T: 60 QT: 392 QTc: 414 Interpretive Statements Sinus rhythm with occasional premature ventricular complexes Imaging Multiple studies:: Radiologist's impression: Intraoperative cholangiogram: No filling defect identified. MRCP: IMPRESSION: Cholelithiasis. No evidence of pancreatitis by MR or on prior CT Abdomen pelvis CT: IMPRESSION: Prominent fluid-filled mildly thick wall loops of distal small bowel and colon, likely enterocolitis. Colonic postsurgical changes. No high-grade obstruction. Small hiatal hernia with mild wall thickening also seen, with postsurgical changes. Suspect cholelithiasis and gallbladder distention. Soft tissue thickening is possible but less likely. Correlate ultrasound. Mildly prominent CBD at 6 millimeters, correlate LFTs. Other findings above. Chest x-ray: No acute cardiopulmonary abnormality is seen. Labs 08/19/24 07:16 08/19/24 06:17 PFSH Medical History Generalized weakness Small bowel obstruction Surgical History H/O thyroidectomy Family History Mother Diabetes mellitus Heart disease Father Diabetes mellitus Heart disease Brother Myocardial infarction CVA (cerebral vascular accident) Other Hypertension Social History household members: spouse Smoking Status: Never smoker alcohol intake: former Discharge Assessment & Plan Assessment and Plan Assessment: 1. Acute gallstone pancreatitis, with possible cholecystitis. POA, improved. 2. YUKO. POA, improved Plan of Treatment: Stable for discharge home, limited number of pain medications given as well as 3 days of doxycycline for her residual cough. Discharge Plan Discharge Plan Patient Disposition: Home Health Service Provider Discharge Comment: You were admitted to the hospital with gallstone pancreatitis. You have anticipated pain after surgery to remove your gallbladder. You are tolerating a diet. cleared for discharge home. Home health referral provided. Discharge orders & Medications Prescriptions: New acetaminophen 325 mg Tablet 975 mg PO Q8H PRN (Reason: Pain, Mild (1-3)) Qty: 30 0RF hydroxyzine HCl 25 mg Tablet 25 mg PO Q6H PRN (Reason: Pain, Mild (1-3)) 7 Days Qty: 20 0RF oxycodone 5 mg Tablet 5 mg PO Q3HR PRN (Reason: Pain, Severe (7-10)) 7 Days Qty: 20 0RF doxycycline hyclate 100 mg capsule 100 mg PO BID Qty: 6 0RF Continued losartan 25 MG tablet 75 mg PO QDAY Qty: 0 levothyroxine [Synthroid] 75 MCG tablet 0.075 mg PO QDAY Qty: 0 albuterol sulfate [Ventolin HFA] 90 MCG/PUFF HFA aerosol inhaler 2 puff INH Q4HP PRN (Reason: Bronchospasm) Qty: 0 lamotrigine [Lamictal] 200 MG tablet 300 mg PO BEDTIME Qty: 0 Rx Instructions: pt reportedly taking 150mg 2 tabs daily at bedtime divalproex 500 MG tablet extended release 24 hr 1,500 mg PO HS Qty: 0 acetaminophen [Tylenol Extra Strength] 500 MG tablet 1,000 mg PO Q6HP PRN (Reason: Abdominal Discomfort) risperidone 0.25 mg tablet 0.25 mg PO TID buspirone 15 mg tablet 15 mg PO BID budesonide 3 mg Capsule,Delayed,Extend.Release 9 mg PO DAILY Qty: 1 0RF trazodone 50 mg tablet 300 mg PO BEDTIME Rx Instructions: pt reportedly taking 100mg 3 Tabs qhs scopolamine base [Transderm-Scop] 1 mg over 3 days Patch 3 Day 1 patch topical Q72H Qty: 6 0RF promethazine 25 mg tablet 25 mg PO TID PRN (Reason: nausea and vomiting) Qty: 20 0RF Medication counseling provided by Pharmacist: No Follow up/Referrals: Judy Davison MD [Primary Care Provider] - Diet/Activity/Treatments Diet: Diet as Tolerated and Low-fat Activity: As tolerated, no heavy lifting >10 lbs until surgical follow up Visit Report/Discharge Packet Instructions: Eating a Diet Low in Saturated Fat, Trans Fat, and Cholesterol, How to Prevent Falls, DI for Prescription Opioid Use, How to Monitor Your Blood Pressure at Home, DI for Laparoscopic Cholecystectomy Stand Alone Forms: Patient Portal/API Discharge Data Primary Care Provider: Judy Davison Quality VTE Deep Vein Thrombosis/Pulmonary Embolism Present on Admission: No
--- NOTE | 2024-08-21 19:27 | PC.NURSE ---
Discharge: Pt has decided she is now ready for d/c to home. Midline removed per protocol. She is eating, has had several small more liquid type stool. Surgeon awarewhen she came and saw pt. Discussed diet and Surgeon gave discharge instructions. Is voiding w/out diff. RX have been esent. Discharge packet reviewed and questions answered. Spouse to be here at 1930 to take her home.
--- NOTE | 2024-08-22 11:28 | CM.DPC ---
Post-d/c note re: second reconsideration of appeal Received a second notice from [facility] that ending services is not appropriate based on the findings noted belo, and stated that they did not receive medical records from us later in the day, although we never received the fax. Called [facility], it was a default decision only based on their having made a second request for records, which we never received. Discussed this with our Hospitalist, Dr. Solo. He requested that we document the second notice, but patient discharged on her own that same day 08/21, per her own decision. No further action necessary on [facility] part.
== END 2024-08-21 19:30 | disposition home health service (06) | DRG 417 ==
LOC: ED 17:57 → AC 20:58
PROVIDERS: Emergency Medicine; Physician Assistant; Surgery; Admitting Provider Internal Medicine; Emergency Provider Emergency Medicine; Family Provider Internal Medicine; PCP Internal Medicine; Visit Provider Internal Medicine
PROC: 0FT44ZZ Resection of Gallbladder, Percutaneous Endoscopic Approach (ICD-10-PCS; CPT 47562; principal; 2024-08-19 10:30)
DX: K85.10 Biliary acute pancreatitis without necrosis or infection (principal); E43 Unspecified severe protein-calorie malnutrition; K50.90 Crohn's disease, unspecified, without complications; N17.9 Acute kidney failure, unspecified; Z68.1 Body mass index [BMI] 19.9 or less, adult; K81.0 Acute cholecystitis; J44.9 Chronic obstructive pulmonary disease, unspecified; M25.511 Pain in right shoulder; E89.0 Postprocedural hypothyroidism; I10 Essential (primary) hypertension; F31.9 Bipolar disorder, unspecified; J06.9 Acute upper respiratory infection, unspecified; Z90.49 Acquired absence of other specified parts of digestive tract; Z79.52 Long term (current) use of systemic steroids; Z87.19 Personal history of other diseases of the digestive system; Z79.890 Hormone replacement therapy
CPT/HCPCS: 0241U; 36415; 71046; 74177; 74183; 74300; 80053; 81003; 81015; 82550; 83605; 83690; 83735; 84100; 84145; 84484; 85025; 87507; 93005; 94640; 96361; 96365; 96375; 97162; 97530; 99284; A9270; A9579; C9250; J0134; J0696; J1100; J1171; J2270; J2405; J2704; J2919; J3010; J7121; Q9967

== ENCOUNTER 2024-09-07 20:31 | Observation (INO) | payer MEDICARE, OTHER, SELFPAY ==
[2024-08-16 21:49] VITALS: BMI 18.7
[2024-09-07 20:35] VITALS: BP 132/65; PULSE 74; RESP 17; TEMP 38.1; O2SAT 98; BMI 19.3
[2024-09-07 21:27] LABS: Influenza A - CEPHEID Flu A NEGATIVE (NEGATIVE); Influenza B - CEPHEID Flu B NEGATIVE (NEGATIVE); Respiratory Syncytial Virus Negative (Negative)
[2024-09-07 21:35] LABS: COVID-19 CEPHEID 4-PLEX PCR Negative (Negative)
[2024-09-07 22:15] LABS: Bacteria Urine None Seen; Culture Indicated Urine Cult Not Indicated; RBC Urine None Seen (0-5/HPF); Squamous Epithelial Cell Urine 0-1 /HPF (0-5/HPF); Urine Volume 10mL (spun); WBC Urine None Seen (0-5/HPF)
[2024-09-07 22:17] VITALS: TEMP 37.4
[2024-09-07 22:46] VITALS: BP 119/60; PULSE 71; O2SAT 100
[2024-09-07 23:00] VITALS: BP 111/65; PULSE 67; O2SAT 100
[2024-09-07 23:30] VITALS: PULSE 68; O2SAT 95
[2024-09-07 23:31] VITALS: BP 117/57; PULSE 64; O2SAT 100
--- NOTE | 2024-09-07 23:32 | ED_ITS ---
HPI - Nausea/Vomiting/Diarrhea General Chief complaint: Nausea/Vomiting/Diarrhea Stated complaint: fever, feel lousy, abd px Time Seen by Provider: 09/07/24 22:07 Source: patient, family, RN notes reviewed and old records reviewed Mode of arrival: Wheelchair Limitations: no limitations History of Present Illness HPI Narrative: 73-year-old female with a past medical history of ulcerative colitis status post total colectomy 1992 now with J-pouch, Crohn's disease on daily steroids, asthma, bipolar, hypertension who presents with complaint of fevers up to 101 F at home. She states she was had some increased abdominal pain particularly in the upper abdomen. She has had some nausea and vomiting just today. States she has been having bowel movements they seem fairly typical for her she states they are usually loose. Patient states she was noticed some frequency and dysuria has had frequent UTIs and urosepsis in the past. Patient notes they stopped her antihypertensives has a blood pressure was too low. Patient had laparoscopic cholecystectomy with intraoperative cholangiogram and lysis of adhesions on 08/19/2024 for gallstone pancreatitis. here at [facility] with Dr. Flores. She had colectomy in 1992 with lysis of adhesion several times, appendectomy has had femur repair for fracture. No tobacco, occasional alcohol, no recreational drugs. She is accompanied by her . Related Data Home Medications Medication Instructions Recorded Confirmed albuterol sulfate 90 mcg/actuation 2 puff INH Q4HP PRN Bronchospasm 04/17/16 09/02/24 aerosol inhaler (Ventolin HFA) ##0 divalproex 500 mg tablet,extended 1,500 mg PO HS ##0 04/17/16 09/02/24 release 24 hr lamotrigine 200 mg tablet 300 mg PO BEDTIME ##0 04/17/16 09/02/24 (Lamictal) levothyroxine 75 mcg tablet 0.075 mg PO QDAY ##0 04/17/16 09/02/24 (Synthroid) losartan 25 mg tablet 75 mg PO QDAY ##0 04/17/16 09/02/24 acetaminophen 500 mg tablet 1,000 mg PO Q6HP PRN Abdominal 05/28/21 09/02/24 (Tylenol Extra Strength) Discomfort risperidone 0.25 mg tablet 0.25 mg PO TID 02/05/24 09/02/24 buspirone 15 mg tablet 15 mg PO BID 02/06/24 09/02/24 trazodone 50 mg tablet 300 mg PO BEDTIME 08/17/24 09/02/24 Previous Rx's Medication Instructions Recorded scopolamine base 1 mg over 3 days 1 patch topical Q72H #6 ea 06/20/21 transdermal patch (Transderm-Scop) promethazine 25 mg tablet 25 mg PO TID PRN nausea and 06/27/21 vomiting #20 tabs budesonide 3 mg 9 mg (3 x 3 mg) PO DAILY #1 ea 02/09/24 capsule,delayed,extended release acetaminophen 325 mg tablet 975 mg (3 x 325 mg) PO Q8H PRN 08/20/24 Pain, Mild (1-3) #30 tabs doxycycline hyclate 100 mg capsule 100 mg PO BID #6 caps 08/21/24 Allergies Allergy/AdvReac Type Severity Reaction Status Date / Time butorphanol Allergy Unknown Verified 09/07/24 20:35 Influenza Virus Vaccines Allergy Unknown ITCHING, Verified 09/07/24 20:35 BAD REACTION meperidine Allergy Unknown Rash Verified 09/07/24 20:35 pneumococcal vaccine Allergy Unknown Verified 09/07/24 20:35 quetiapine Allergy Unknown Verified 09/07/24 20:35 shellfish derived Allergy Unknown Verified 09/07/24 20:35 neuroleptics AdvReac Unknown PT STATES Uncoded 09/02/24 13:11 HAD REALLY BAD REACTION, UNABLE TO STATE WHAT Review of Systems Review of Systems ROS Unobtainable: All systems reviewed & are unremarkable except as noted in HPI and below Patient History Medical History Generalized weakness Small bowel obstruction Surgical History H/O thyroidectomy Family History Mother Diabetes mellitus Heart disease Father Diabetes mellitus Heart disease Brother Myocardial infarction CVA (cerebral vascular accident) Other Hypertension Social History household members: spouse Smoking Status: Never smoker alcohol intake: former Smoking Status: Never smoker alcohol intake frequency: 0-2 drinks per day Exam Narrative Exam Narrative: GENERAL: Alert and oriented x three, female in mild distress HEENT: Head normocephalic, atraumatic, EOMI, pupils reactive, face symmetric, moist mucous membranes NECK: Supple, full range of motion CARDIOVASCULAR: Regular rate and rhythm without murmurs, rubs or gallops. RESPIRATORY: Breath sounds equal bilaterally, no wheezes rales or rhonchi. ABDOMEN: Soft, mildly tender particularly in the upper quadrants bilaterally, patient has several laparoscopic incisions which are clean dry and intact with no erythema or signs of infection and appear to be healing well. Normoactive bowel sounds all 4 quadrants. No guarding or rebound, rigidity, no mass : No CVA tenderness EXTREMITIES: Normal range of motion, no clubbing or edema. Neurovascularly intact NEUROLOGICAL: Cranial nerves II through XII grossly intact. Moving all extremities SKIN: Warm, dry, no petechiae, no rashes or lesions. Initial Vital Signs Initial Vital Signs: Vital Signs Temperature 100.6 F H 09/07/24 20:35 Pulse Rate 74 09/07/24 20:35 Respiratory Rate 17 09/07/24 20:35 Blood Pressure 132/65 09/07/24 20:35 Pulse Oximetry 98 09/07/24 20:35 Oxygen Delivery Method Room Air 09/07/24 20:35 Course Orders Ordered: ED Orders 09/07/24 20:45 Covid-19 + FLU A/B + RSV - PCR Stat 09/07/24 21:55 Urine Microscopic Stat 09/07/24 23:43 CT abdomen pelvis w con Stat 09/07/24 23:55 Complete Blood Count AUTO DIFF Stat Comprehensive Metabolic Panel Stat Lactate (Lactic Acid) Stat Procalcitonin Stat Ondansetron HCl (Ondansetron 4 Mg/2 Ml Inj) 4 mg IV NOW PRN PRN Reason: Nausea And Vomiting Last Admin: 09/08/24 00:14 Dose: 4 mg Documented By: HAL Ondansetron HCl (Ondansetron 4 Mg Odt) 4 mg SL NOW PRN PRN Reason: Nausea And Vomiting Discontinued Medications Acetaminophen (Acetaminophen 325 Mg Tablet) 650 mg PO NOW ONE Stop: 09/07/24 22:08 Last Admin: 09/08/24 01:48 Dose: 650 mg Documented By: HAL Piperacillin Sod/Tazobactam (Sod 4.5 gm/ Sodium Chloride) 100 mls @ 200 mls/hr IV NOW ONE Stop: 09/07/24 23:43 Last Infusion: 09/08/24 00:50 Dose: Infused Documented By: Admin: 09/08/24 00:15 Dose: 200 mls/hr Documented By: HAL Sodium Chloride (Normal Saline 0.9%) 1,000 mls @ 1,000 mls/hr IV BOLUS ONE Stop: 09/08/24 01:57 Last Infusion: 09/08/24 03:13 Dose: Infused Documented By: Admin: 09/08/24 01:04 Dose: 1,000 mls/hr Documented By: HAL Ketorolac Tromethamine (Ketorolac 30 Mg/Ml Vial) 15 mg IV NOW ONE Stop: 09/07/24 23:43 Last Admin: 09/08/24 00:50 Dose: Not Given Documented By: HAL Vital Signs Vital signs: Vital Signs - 8 hr 09/07/24 20:35 09/07/24 22:17 09/07/24 22:46 Temperature 100.6 F H 99.4 F Pulse Rate 74 71 Respiratory Rate 17 Blood Pressure 132/65 Pulse Oximetry 98 100 Oxygen Delivery Method Room Air 09/07/24 22:46 09/07/24 23:00 09/07/24 23:00 Temperature Pulse Rate 67 Respiratory Rate Blood Pressure 119/60 111/65 Pulse Oximetry 100 Oxygen Delivery Method 09/07/24 23:30 09/07/24 23:31 09/07/24 23:31 Temperature Pulse Rate 68 64 Respiratory Rate Blood Pressure 117/57 L Pulse Oximetry 95 100 Oxygen Delivery Method 09/08/24 00:07 09/08/24 00:09 09/08/24 00:09 Temperature Pulse Rate 82 75 Respiratory Rate Blood Pressure 119/55 L Pulse Oximetry Oxygen Delivery Method 09/08/24 00:30 09/08/24 01:00 09/08/24 01:30 Temperature Pulse Rate 58 L 56 L 75 Respiratory Rate Blood Pressure Pulse Oximetry 97 97 Oxygen Delivery Method 09/08/24 01:31 09/08/24 01:31 09/08/24 01:47 Temperature Pulse Rate 80 89 Respiratory Rate Blood Pressure 102/52 L Pulse Oximetry Oxygen Delivery Method 09/08/24 02:01 09/08/24 02:30 Temperature Pulse Rate Respiratory Rate Blood Pressure 99/56 L 101/50 L Pulse Oximetry Oxygen Delivery Method [facility] Nausea/Vomiting/Diarrhea Lab Data 09/07/24 23:55 09/07/24 23:55 Labs: Lab Results 09/07/24 09/07/24 09/07/24 Range/Units 20:45 21:55 23:55 WBC 2.8 L (4.5-11.0) X10^3/uL RBC 2.55 L (4.0-5.2) X10^6/uL Hgb 8.6 L (12.0-16.0) g/dL Hct 25.3 L (36-46) % MCV 99.4 (80-100) fL MCH 33.7 (26-34) PG MCHC 33.9 (30-36) % RDW 13.5 (11.6-14.8) % Plt Count 140 L (150-400) X10^3/uL Neut % (Auto) 69.8 (50-75) % Lymph % (Auto) 11.5 L (25-40) % [place] % (Auto) 15.1 H (3-14) % Eos % (Auto) 1.9 L (2-4) % Baso % (Auto) 1.7 (0-2) % Neut # (Auto) 2000 (3534-7399) /uL Lymph # (Auto) 300 L (9063-6516) /uL [place] # (Auto) 400 (0-900) /uL Eos # (Auto) 100 (0-450) /uL Baso # (Auto) 0 (0-100) /uL Sodium 130 L (137-145) mmol/L Potassium 3.7 (3.4-5.1) mmol/L Chloride 104 (98-107) mmol/L Carbon Dioxide 17 L (22-32) mmol/L BUN 32 H (7-17) mg/dL Creatinine 1.30 H (0.52-1.04) mg/dL Estimated GFR 44 L (>60) mL/min BUN/Creatinine Ratio 24.6 H (6-22) Glucose 89 (80-110) mg/dL Lactate 0.7 (0.7-2.1) mmol/L Calcium 8.1 L (8.4-10.2) mg/dL Total Bilirubin 0.5 (0.2-1.3) mg/dL AST 30 (14-36) IU/L ALT 11 (<35) IU/L Alkaline Phosphatase 104 (38-126) U/L Total Protein 6.1 L (6.3-8.2) g/dL Albumin 3.1 L (3.5-5.0) g/dL Globulin 3.0 (1.7-4.1) g/dL Albumin/Globulin Ratio 1.0 (1.0-2.8) Procalcitonin 0.321 (<0.5) ng/mL Urine RBC None seen (0-5/HPF) Urine WBC None seen (0-5/HPF) Ur Squamous Epith Cells 0-1 /hpf (0-5/HPF) Urine Bacteria None seen (None) Ur Culture Indicated? Cult not indicated Vol Urine Centrifuged 10ml (spun) SARS-CoV-2 (PCR) Negative (Negative) Influenza A (RT-PCR) Flu a negative (NEGATIVE) Influenza B (RT-PCR) Flu b negative (NEGATIVE) RSV (PCR) Negative (Negative) Urine Dip Bedside Urine Glucose Negative Bedside Urine Bilirubin - Negative Bedside Urine Ketone - Negative Urine Specific [place] 1.01 Bedside Urine Occult Blood - Negative Bedside Urine pH 6.0 Bedside Urine Protein - Negative Bedside Urine Urobilinogen - Negative Bedside Urine Nitrite - Negative Bedside Urine Leukocytes ++ 125 Esterase MDM Narrative Medical decision making narrative: 73-year-old female presents with fever 100.6 otherwise appropriate vitals but had a recent cholecystectomy 2 weeks ago has been admitted for urosepsis in the past. Has tenderness in her upper abdomen. Plan for labs, CT imaging, urine does show leukocyte esterase but no other major changes consistent with infection. Has a patient's recent surgery was covered with a dose of IV antibiotics. Patient's initial pressures were very appropriate and did not started 30 cc [place] bolus as patient is 73 and has potential for fluid overload. Labs show white count of 2.8 patient is chronically leukopenic, patient's last several days has been trending down. Hemoglobin is 8.6 she has been 9.3-8.9 earlier this month has been in the 8-9 range in January, platelets are 140. She has had occasional lows but not consistently. Patient's sodium is 130 was 137 08/19/2024. Creatinine is 1.3 from prior earlier in August patient was as high as 1.6 in July. Glucose is 89, procalcitonin is 0.321. Lactate is 0.7. CT abdomen pelvis status post cholecystectomy minimal appearance of fluid and gallbladder fossa proximally 9 mm overall nonspecific could be postsurgical fluid, biloma or potentially developing phlegmon abscess. Point of care urine negative for nitrates positive for leukocyte esterase no blood. No glucose or ketones. Urine micro shows no red cells no white cells 1 squamous no bacteria. covid/influenza/RSV is negative. Spoke with general surgery, Dr. Muhammad @ [phone], reviewed findings expected amount of fluid on on CT imaging and suspect not necessarily source of patient's infection but is happy to see the patient. Spoke with tele-hospitalist, Dr. Ashraf accepts for inpatient, plan for General surgery to evaluate patient later this morning patient is nontoxic appearing. Suspect possible UTI but possibility as patient has had recent cholecystectomy if bacteremia versus developing abdominal infection although patient is only very mildly tender on exam. Discharge Plan Departure Patient Disposition: Admitted As Inpatient Clinical Impression: YUKO (acute kidney injury), Hyponatremia, Leukopenia, Sepsis Prescriptions: No Action losartan 25 MG tablet 75 mg PO QDAY Qty: 0 levothyroxine [Synthroid] 75 MCG tablet 0.075 mg PO QDAY Qty: 0 albuterol sulfate [Ventolin HFA] 90 MCG/PUFF HFA aerosol inhaler 2 puff INH Q4HP PRN (Reason: Bronchospasm) Qty: 0 lamotrigine [Lamictal] 200 MG tablet 300 mg PO BEDTIME Qty: 0 Rx Instructions: pt reportedly taking 150mg 2 tabs daily at bedtime divalproex 500 MG tablet extended release 24 hr 1,500 mg PO HS Qty: 0 acetaminophen [Tylenol Extra Strength] 500 MG tablet 1,000 mg PO Q6HP PRN (Reason: Abdominal Discomfort) risperidone 0.25 mg tablet 0.25 mg PO TID buspirone 15 mg tablet 15 mg PO BID budesonide 3 mg Capsule,Delayed,Extend.Release 9 mg PO DAILY Qty: 1 0RF trazodone 50 mg tablet 300 mg PO BEDTIME Rx Instructions: pt reportedly taking 100mg 3 Tabs qhs acetaminophen 325 mg Tablet 975 mg PO Q8H PRN (Reason: Pain, Mild (1-3)) Qty: 30 0RF doxycycline hyclate 100 mg capsule 100 mg PO BID Qty: 6 0RF scopolamine base [Transderm-Scop] 1 mg over 3 days Patch 3 Day 1 patch topical Q72H Qty: 6 0RF promethazine 25 mg tablet 25 mg PO TID PRN (Reason: nausea and vomiting) Qty: 20 0RF Referrals: Judy Davison MD [Primary Care Provider] - Admit Date/Time: 09/08/24 03:37 Admit Provider: Emile Lemon
--- NOTE | 2024-09-07 23:43 | DI.CT.S_ITS ---
PROCEDURE: CT ABDOMEN PELVIS W CON INDICATIONS: fever, upper abd pain, s/p cholecystectomy 2wks ago, urinary TECHNIQUE: After the administration of intravenous contrast, axial sections acquired from the lung bases to the pubic symphysis. Coronal and sagittal reformats were performed. For radiation dose reduction, the following was used: automated exposure control, adjustment of mA and/or kV according to patient size. COMPARISON: [facility], MR, MR ABDOMEN WO/W CON, 08/17/2024, 10:06. [facility], CT, CT ABDOMEN PELVIS W CON, 08/16/2024, 15:45. FINDINGS: Image quality: Diagnostic. Lower Chest: No significant findings. ABDOMEN: Liver: No solid mass. Gallbladder: Removed. 9 mm focus of fluid within the gallbladder fossa. Biliary ducts: No biliary dilation. Pancreas: No ductal dilation. Spleen: Size is within normal limits. Adrenal Glands: No adrenal nodules. Kidneys and Ureters: No hydronephrosis. No solid mass multiple bilateral simple renal cysts. Stomach and Bowel: Normal colonic caliber, without significant wall thickening. Postsurgical colonic changes. Peritoneum: No abnormal intraperitoneal fluid. No free air. Ventral Wall: No significant ventral hernia. Abdominal Nodes: No retroperitoneal or mesenteric adenopathy by size criteria. Vessels: Aorta and inferior vena cava are normal in size. PELVIS: Pelvic Organs: Unremarkable. Bladder: No bladder wall thickening, accounting for underdistention. Pelvic Nodes: No enlarged lymph nodes. Miscellaneous: No inguinal hernias are seen. Bones: No aggressive osseous abnormality. Left femoral fixation. IMPRESSION: Status post cholecystectomy. There is a very minimal appearance of fluid in the gallbladder fossa measuring approximately 9 mm. This is overall nonspecific. This could represent postsurgical fluid, biloma or potentially developing phlegmon/abscess. Dictated by: Tahmina Alvarez M.D. on 09/08/2024 at 1:08 Approved by: Tahmina Alvarez M.D. on 09/08/2024 at 1:11
--- NOTE | 2024-09-07 23:54 | PC.NURSE ---
Difficult IV start. US trained RN now at bedside for placement.
[2024-09-08] VITALS (16 sets, daily range): BP systolic 92–128; BP diastolic 41–58; PULSE 45–89; RESP 12–20; TEMP 36.2–36.6; O2SAT 96–100; BMI 19.3
[2024-09-08 00:08] LABS: Add Manual Diff / Slide Review NO; Basophils Absolute Auto 0 /uL (0-100); Basophils Percent Auto 1.7 % (0-2); Eosinophils Absolute Auto 100 /uL (0-450); Eosinophils Percent Auto 1.9 % (2-4); Hematocrit 25.3 % (36-46); Hemoglobin 8.6 g/dL (12.0-16.0); Lymphocytes Absolute Auto 300 /uL (1100-4500); Lymphocytes Percent Auto 11.5 % (25-40); Mean Corpuscular HGB Conc 33.9 % (30-36); Mean Corpuscular Hemoglobin 33.7 PG (26-34); Mean Corpuscular Volume 99.4 fL (80-100); Monocytes Absolute Auto 400 /uL (0-900); Monocytes Percent Auto 15.1 % (3-14); Neutrophils Absolute Auto 2000 /uL (1500-7000); Neutrophils Percent Auto 69.8 % (50-75); Platelet Count 140 X10^3/uL (150-400); Red Blood Cell Count 2.55 X10^6/uL (4.0-5.2); Red Cell Distribution Width 13.5 % (11.6-14.8); White Blood Cell Count 2.8 X10^3/uL (4.5-11.0)
[2024-09-08] MEDS: ONDANSETRON 4 MG/2 ML INJ IV ×5 (00:14→18:56)
[2024-09-08] MEDS: PIPERACILLIN/TAZO 4.5 GM in SODIUM CHLORIDE 0.9% 100 ML IV (00:15)
[2024-09-08 00:19] LABS: Alanine Aminotransferase 11 IU/L (<35); Albumin 3.1 g/dL (3.5-5.0); Alkaline Phosphatase 104 U/L (38-126); Aspartate Aminotransferase 30 IU/L (14-36); BUN Creatinine Ratio 24.6 (6-22); Bilirubin Total 0.5 mg/dL (0.2-1.3); Blood Urea Nitrogen 32 mg/dL (7-17); Calcium 8.1 mg/dL (8.4-10.2); Carbon Dioxide 17 mmol/L (22-32); Chloride 104 mmol/L (98-107); Estimated Glomerular Filt Rate 44 mL/min (>60); Glucose 89 mg/dL (80-110); HEMOLYSIS 21 (0-50); Lactate (Lactic Acid) 0.7 mmol/L (0.7-2.1); Potassium 3.7 mmol/L (3.4-5.1); Sodium 130 mmol/L (137-145); Total Protein 6.1 g/dL (6.3-8.2)
[2024-09-08 00:36] LABS: Procalcitonin 0.321 ng/mL (<0.5)
[2024-09-08] MEDS: SODIUM CHLORIDE 0.9% 1,000 ML 1000 ML IV (01:04)
[2024-09-08] MEDS: ACETAMINOPHEN 325 MG TABLET 650 MG PO (01:48)
[2024-09-08] MEDS: PIPERACILLIN/TAZO 3.375 GM in SODIUM CHLORIDE 0.9% 100 ML IV ×3 (06:06→20:55)
[2024-09-08 06:33] LABS: Add Manual Diff / Slide Review NO; Basophils Absolute Auto 100 /uL (0-100); Basophils Percent Auto 2.4 % (0-2); Eosinophils Absolute Auto 100 /uL (0-450); Eosinophils Percent Auto 2.5 % (2-4); Hemoglobin 8.6 g/dL (12.0-16.0); Lymphocytes Absolute Auto 300 /uL (1100-4500); Lymphocytes Percent Auto 13.1 % (25-40); Mean Corpuscular HGB Conc 34.2 % (30-36); Mean Corpuscular Hemoglobin 33.5 PG (26-34); Mean Corpuscular Volume 98.1 fL (80-100); Monocytes Absolute Auto 400 /uL (0-900); Monocytes Percent Auto 18.4 % (3-14); Neutrophils Absolute Auto 1500 /uL (1500-7000); Neutrophils Percent Auto 63.6 % (50-75); Platelet Count 132 X10^3/uL (150-400); Red Blood Cell Count 2.55 X10^6/uL (4.0-5.2); Red Cell Distribution Width 13.2 % (11.6-14.8); White Blood Cell Count 2.3 X10^3/uL (4.5-11.0)
[2024-09-08 06:42] LABS: BUN Creatinine Ratio 22.7 (6-22); Blood Urea Nitrogen 27 mg/dL (7-17); Calcium 7.7 mg/dL (8.4-10.2); Carbon Dioxide 16 mmol/L (22-32); Chloride 109 mmol/L (98-107); Estimated Glomerular Filt Rate 49 mL/min (>60); Glucose 93 mg/dL (80-110); HEMOLYSIS < 15 (0-50); Potassium 3.4 mmol/L (3.4-5.1); Sodium 133 mmol/L (137-145)
[2024-09-08] MEDS: HYDROMORPHONE 0.5 MG INJ IV ×4 (06:49→21:51)
[2024-09-08] MEDS: LEVOTHYROXINE 75 MCG TABLET PO (06:49)
--- NOTE | 2024-09-08 07:00 | PM.HP.1 ---
History of Present Illness History of Present Illness Date Patient Seen: 09/08/24 Time Patient Seen: 04:00 Chief complaint: fever, feel lousy, abd px Narrative: 73 y/o with PMH of ulcerative colitis s/p total colectomy in 1992 now with J-pouch, Crohn's disease on daily steroids, asthma, bipolar disorder, HTN, recent laparoscopic cholecystectomy, 2 weeks ago, who came complaining on nausea, abdominal pain in both upper quadrants and fever.. ED workup shows: Labs show stable pancytopenia - white count of 2.8 patient is chronically leukopenic, patient's last several days has been trending down. Hemoglobin is 8.6 she has been 9.3-8.9 earlier this month has been in the 8-9 range in January, platelets are 140. She has had occasional lows but not consistently. Sodium is 130, was 137 08/19/2024. Creatinine is 1.3, lower then in July - 1.6, Glucose is 89, procalcitonin is 0.321. Lactate is 0.7. CT abdomen pelvis status post cholecystectomy minimal appearance of fluid in gallbladder fossa proximally 9 mm overall nonspecific could be postsurgical fluid, biloma or potentially developing phlegmon abscess. Point of care urine negative for nitrates positive for leukocyte esterase no blood. No glucose or ketones. Urine micro shows no red cells no white cells 1 squamous no bacteria. covid/influenza/RSV is negative. Started empiric Zosyn for likely UTI and less likely gallbladder fossa infection. Discussed with surgeon foundation director and admitted to medicine. [facility], [facility] Medical History Generalized weakness Small bowel obstruction Surgical History H/O thyroidectomy Family History Mother Diabetes mellitus Heart disease Father Diabetes mellitus Heart disease Brother Myocardial infarction CVA (cerebral vascular accident) Other Hypertension Social History household members: spouse Smoking Status: Never smoker alcohol intake: former Meds Home Medications and Allergies Home Medications Medication Instructions Recorded Confirmed Type albuterol sulfate 90 mcg/actuation 2 puff INH Q4HP PRN Bronchospasm 04/17/16 09/08/24 History aerosol inhaler (Ventolin HFA) ##0 divalproex 500 mg tablet,extended 1,500 mg PO BEDTIME ##0 04/17/16 09/08/24 History release 24 hr lamotrigine 200 mg tablet 300 mg PO BEDTIME ##0 04/17/16 09/08/24 History (Lamictal) levothyroxine 75 mcg tablet 0.075 mg PO QDAY ##0 04/17/16 09/08/24 History (Synthroid) acetaminophen 500 mg tablet 1,000 mg PO Q6HP PRN Abdominal 05/28/21 09/08/24 History (Tylenol Extra Strength) Discomfort risperidone 0.25 mg tablet 0.25 mg PO TID 02/05/24 09/08/24 History buspirone 15 mg tablet 15 mg PO BID 02/06/24 09/08/24 History trazodone 50 mg tablet 300 mg PO BEDTIME 08/17/24 09/08/24 History Allergies Allergy/AdvReac Type Severity Reaction Status Date / Time butorphanol Allergy Unknown Verified 09/07/24 20:35 Influenza Virus Vaccines Allergy Unknown ITCHING, Verified 09/07/24 20:35 BAD REACTION meperidine Allergy Unknown Rash Verified 09/07/24 20:35 pneumococcal vaccine Allergy Unknown Verified 09/07/24 20:35 quetiapine Allergy Unknown Verified 09/07/24 20:35 shellfish derived Allergy Unknown Verified 09/07/24 20:35 neuroleptics AdvReac Unknown PT STATES Uncoded 09/02/24 13:11 HAD REALLY BAD REACTION, UNABLE TO STATE WHAT Review of Systems Review of Systems Narrative: General - w/o chills or fever GI - nausea, abdominal pain UG - w/o dysuria CVS - w/o chest pain RS - w/o shortness of breath Exam Vital Signs (past 8 hours): - 09/07/24 23:30 09/07/24 23:31 09/07/24 23:31 Temperature Pulse Rate 68 64 Respiratory Rate Blood Pressure 117/57 L Pulse Oximetry 95 100 Oxygen Delivery Method Oxygen Flow Rate 09/08/24 00:07 09/08/24 00:09 09/08/24 00:09 Temperature Pulse Rate 82 75 Respiratory Rate Blood Pressure 119/55 L Pulse Oximetry Oxygen Delivery Method Oxygen Flow Rate 09/08/24 00:30 09/08/24 01:00 09/08/24 01:30 Temperature Pulse Rate 58 L 56 L 75 Respiratory Rate Blood Pressure Pulse Oximetry 97 97 Oxygen Delivery Method Oxygen Flow Rate 09/08/24 01:31 09/08/24 01:31 09/08/24 01:47 Temperature Pulse Rate 80 89 Respiratory Rate Blood Pressure 102/52 L Pulse Oximetry Oxygen Delivery Method Oxygen Flow Rate 09/08/24 02:01 09/08/24 02:30 09/08/24 03:42 Temperature Pulse Rate Respiratory Rate Blood Pressure 99/56 L 101/50 L Pulse Oximetry Oxygen Delivery Method Room Air Oxygen Flow Rate 09/08/24 04:30 09/08/24 04:35 Temperature 97.7 F Pulse Rate 45 L Respiratory Rate 12 Blood Pressure 95/43 L 92/42 L Pulse Oximetry 96 Oxygen Delivery Method Oxygen Flow Rate 0 Oxygen Delivery Method Room Air Oxygen Flow Rate 0 Narrative Exam Narrative: General - in no distress GI - jejunostomy,, w/o peritoneal signs CVS - RRR RS - normal respiratory effort Skin - laparoscopic incisions healed Neuro - lucid, w/o motor deficits, appropriate mood Objective Labs 09/08/24 06:20 09/08/24 06:20 Labs: Laboratory Results - last 24 hr 09/07/24 09/07/24 09/07/24 20:45 21:55 23:55 WBC 2.8 L RBC 2.55 L Hgb 8.6 L Hct 25.3 L MCV 99.4 MCH 33.7 MCHC 33.9 RDW 13.5 Plt Count 140 L Neut % (Auto) 69.8 Lymph % (Auto) 11.5 L [place] % (Auto) 15.1 H Eos % (Auto) 1.9 L Baso % (Auto) 1.7 Neut # (Auto) 2000 Lymph # (Auto) 300 L [place] # (Auto) 400 Eos # (Auto) 100 Baso # (Auto) 0 Sodium 130 L Potassium 3.7 Chloride 104 Carbon Dioxide 17 L BUN 32 H Creatinine 1.30 H Estimated GFR 44 L BUN/Creatinine Ratio 24.6 H Glucose 89 Lactate 0.7 Calcium 8.1 L Total Bilirubin 0.5 AST 30 ALT 11 Alkaline Phosphatase 104 Total Protein 6.1 L Albumin 3.1 L Globulin 3.0 Albumin/Globulin Ratio 1.0 Procalcitonin 0.321 Urine RBC None seen Urine WBC None seen Ur Squamous Epith Cells 0-1 /hpf Urine Bacteria None seen Ur Culture Indicated? Cult not indicated Vol Urine Centrifuged 10ml (spun) SARS-CoV-2 (PCR) Negative Influenza A (RT-PCR) Flu a negative Influenza B (RT-PCR) Flu b negative RSV (PCR) Negative 09/08/24 06:20 WBC 2.3 L RBC 2.55 L Hgb 8.6 L Hct 25.0 L MCV 98.1 MCH 33.5 MCHC 34.2 RDW 13.2 Plt Count 132 L Neut % (Auto) 63.6 Lymph % (Auto) 13.1 L [place] % (Auto) 18.4 H Eos % (Auto) 2.5 Baso % (Auto) 2.4 H Neut # (Auto) 1500 Lymph # (Auto) 300 L [place] # (Auto) 400 Eos # (Auto) 100 Baso # (Auto) 100 Sodium 133 L Potassium 3.4 Chloride 109 H Carbon Dioxide 16 L BUN 27 H Creatinine 1.19 H Estimated GFR 49 L BUN/Creatinine Ratio 22.7 H Glucose 93 Lactate Calcium 7.7 L Total Bilirubin AST ALT Alkaline Phosphatase Total Protein Albumin Globulin Albumin/Globulin Ratio Procalcitonin Urine RBC Urine WBC Ur Squamous Epith Cells Urine Bacteria Ur Culture Indicated? Vol Urine Centrifuged SARS-CoV-2 (PCR) Influenza A (RT-PCR) Influenza B (RT-PCR) RSV (PCR) Assessment & Plan Assessment and plan (1) YUKO (acute kidney injury): Status: Acute (2) Abdominal pain: Status: Acute (3) Crohn's disease: Status: Acute (4) Acquired hypothyroidism: Status: Chronic (5) Hyponatremia: Status: Acute (6) Bipolar disorder: Status: Acute Assessment & Plan narrative: Abdominal pain, nausea, YUKO - could be related to recent cholecystectomy, Crohn's diesease or UTI - empiric Zosyn to cover for possible gallbladder fossa infection - surgical evaluation - home antihypertensives on hold, IVFs instead, hypotensive, at risk for sepsis Bipolar disorder - depakote, lamictal, buspirone, risperidone, trazodone Hypothyroidism - levothyroxine DVT prophylaxis - heparin Time-Based Coding :: [TOTAL MINUTES] spent with patient and on the chart (including review of chart, obtaining history, exam, reviewing outside data, placing orders, documenting exam and treatment plan, and counseling patient) on [DATE]. Quality VTE Deep Vein Thrombosis/Pulmonary Embolism Present on Admission: No
--- NOTE | 2024-09-08 07:22 | PC.NURSE ---
Admit/NOC Shift Note- Patient arrived to room via wheelchair at 0425. Patient alert and oriented and able to make needs known to staff. Admit questions done, physical assessment, medications reviewed. Patient oriented to bed and bed controls, room, bathroom, lights, phone, menu, and call huynh./tv remote. Patient agrees to call for assiustance. bed alarm activated. call huynh and phone within reach. will continue ro monitor,
[2024-09-08] MEDS: SODIUM CHLORIDE 0.9% 1,000 ML 100 ML IV ×2 (07:56→18:59)
[2024-09-08] MEDS: HYDROCODONE/ACET 10/325 TABLET 1 TAB PO (07:57)
[2024-09-08] MEDS: HEPARIN 5,000 UNIT/ML VIAL 5000 UNIT SUBCUT ×2 (08:39→20:56)
[2024-09-08] MEDS: BUSPIRONE 5 MG TABLET 15 MG PO ×2 (08:39→20:56)
[2024-09-08] MEDS: risperiDONE 0.25 MG TABLET PO ×3 (08:39→20:56)
--- NOTE | 2024-09-08 09:24 | PM.HP.IH.1 ---
History of Present Illness History of Present Illness Date Patient Seen: 09/08/24 Time Patient Seen: 08:10 Chief complaint: fever, feel lousy, abd px Narrative: Night hospitalist: 73 y/o with PMH of ulcerative colitis s/p total colectomy in 1992 now with J-pouch, Crohn's disease on daily steroids, asthma, bipolar disorder, HTN, recent laparoscopic cholecystectomy, 2 weeks ago, who came complaining on nausea, abdominal pain in both upper quadrants and fever.. ED workup shows: Labs show stable pancytopenia - white count of 2.8 patient is chronically leukopenic, patient's last several days has been trending down. Hemoglobin is 8.6 she has been 9.3-8.9 earlier this month has been in the 8-9 range in January, platelets are 140. She has had occasional lows but not consistently. Sodium is 130, was 137 08/19/2024. Creatinine is 1.3, lower then in July - 1.6, Glucose is 89, procalcitonin is 0.321. Lactate is 0.7. CT abdomen pelvis status post cholecystectomy minimal appearance of fluid in gallbladder fossa proximally 9 mm overall nonspecific could be postsurgical fluid, biloma or potentially developing phlegmon abscess. Point of care urine negative for nitrates positive for leukocyte esterase no blood. No glucose or ketones. Urine micro shows no red cells no white cells 1 squamous no bacteria. covid/influenza/RSV is negative. Started empiric Zosyn for likely UTI and less likely gallbladder fossa infection. 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 Interim history: She reports ongoing epigastric pain since her 08/19/2024 laparoscopic cholecystectomy with intraoperative cholangiogram, with gallbladder pathology reporting Chronic cholecystitis with cholelithiasis. Negative for dysplsia and malignancy. She is eating breakfast this morning and reports moderate epigastric pain. [facility] Medical History Generalized weakness Small bowel obstruction Surgical History H/O thyroidectomy Status post laparoscopic cholecystectomy Family History Mother Diabetes mellitus Heart disease Father Diabetes mellitus Heart disease Brother Myocardial infarction CVA (cerebral vascular accident) Other Hypertension Social History household members: spouse Smoking Status: Never smoker alcohol intake: former Meds Home Medications and Allergies Home Medications Medication Instructions Recorded Confirmed Type albuterol sulfate 90 mcg/actuation 2 puff INH Q4HP PRN Bronchospasm 04/17/16 09/08/24 History aerosol inhaler (Ventolin HFA) ##0 divalproex 500 mg tablet,extended 1,500 mg PO BEDTIME ##0 04/17/16 09/08/24 History release 24 hr lamotrigine 200 mg tablet 300 mg PO BEDTIME ##0 04/17/16 09/08/24 History (Lamictal) levothyroxine 75 mcg tablet 0.075 mg PO QDAY ##0 04/17/16 09/08/24 History (Synthroid) acetaminophen 500 mg tablet 1,000 mg PO Q6HP PRN Abdominal 05/28/21 09/08/24 History (Tylenol Extra Strength) Discomfort risperidone 0.25 mg tablet 0.25 mg PO TID 02/05/24 09/08/24 History buspirone 15 mg tablet 15 mg PO BID 02/06/24 09/08/24 History trazodone 50 mg tablet 300 mg PO BEDTIME 08/17/24 09/08/24 History Allergies Allergy/AdvReac Type Severity Reaction Status Date / Time butorphanol Allergy Unknown Verified 09/07/24 20:35 Influenza Virus Vaccines Allergy Unknown ITCHING, Verified 09/07/24 20:35 BAD REACTION meperidine Allergy Unknown Rash Verified 09/07/24 20:35 pneumococcal vaccine Allergy Unknown Verified 09/07/24 20:35 quetiapine Allergy Unknown Verified 09/07/24 20:35 shellfish derived Allergy Unknown Verified 09/07/24 20:35 neuroleptics AdvReac Unknown PT STATES Uncoded 09/02/24 13:11 HAD REALLY BAD REACTION, UNABLE TO STATE WHAT Review of Systems Review of Systems ROS: Yes All systems reviewed with the patient and are negative except as otherwise documented Exam Vital Signs (past 8 hours): - 09/08/24 01:30 09/08/24 01:31 09/08/24 01:31 Temperature Pulse Rate 75 80 Respiratory Rate Blood Pressure 102/52 L Pulse Oximetry Oxygen Delivery Method Oxygen Flow Rate 09/08/24 01:47 09/08/24 02:01 09/08/24 02:30 Temperature Pulse Rate 89 Respiratory Rate Blood Pressure 99/56 L 101/50 L Pulse Oximetry Oxygen Delivery Method Oxygen Flow Rate 09/08/24 03:42 09/08/24 04:30 09/08/24 04:35 Temperature 97.7 F Pulse Rate 45 L Respiratory Rate 12 Blood Pressure 95/43 L 92/42 L Pulse Oximetry 96 Oxygen Delivery Method Room Air Oxygen Flow Rate 0 09/08/24 07:00 09/08/24 08:00 Temperature 97.2 F L Pulse Rate 61 Respiratory Rate 20 Blood Pressure 121/41 L Pulse Oximetry 100 Oxygen Delivery Method Room Air Oxygen Flow Rate 0 Oxygen Delivery Method Room Air Oxygen Flow Rate 0 Narrative Exam Narrative: GENERAL: This is a thin female patient, in no apparent distress, eating breakfast. HEAD: Atraumatic. Normocephalic. No temporal or scalp tenderness. EYES: Pupils equal round and reactive. Extraocular motions intact. No scleral icterus. No injection or drainage. ENT: Mucous membranes pink and moist. NECK: Trachea midline. No JVD, bruits or lymphadenopathy. Supple, nontender, no meningeal signs. CARDIOVASCULAR: Regular rate and rhythm without murmurs, gallops, or rubs. RESPIRATORY: Clear to auscultation. GASTROINTESTINAL: Abdomen soft, moderate RUQ and epigastric tenderness, nondistended, no guarding or rebound. EXTREMITIES: No clubbing, cyanosis, or edema. BACK: Nontender without deformity or crepitance. No flank tenderness. NEUROLOGIC: Alert, oriented, speech fluent, full upper and lower motor strength, no focal deficits evident. DERMATOLOGIC: No rashes or skin lesions. Objective Imaging CT scan - abdomen: Radiologist's impression: Status post cholecystectomy. There is a very minimal appearance of fluid in the gallbladder fossa measuring approximately 9 mm. This is overall nonspecific. This could represent postsurgical fluid, biloma or potentially developing phlegmon/abscess. 09/07 Labs 09/08/24 06:20 09/08/24 06:20 Labs: Laboratory Results - last 24 hr 09/07/24 09/07/24 09/07/24 20:45 21:55 23:55 WBC 2.8 L RBC 2.55 L Hgb 8.6 L Hct 25.3 L MCV 99.4 MCH 33.7 MCHC 33.9 RDW 13.5 Plt Count 140 L Neut % (Auto) 69.8 Lymph % (Auto) 11.[address] % (Auto) 15.1 H Eos % (Auto) 1.9 L Baso % (Auto) 1.7 Neut # (Auto) 2000 Lymph # (Auto) [address] # (Auto) 400 Eos # (Auto) 100 Baso # (Auto) 0 Sodium 130 L Potassium 3.7 Chloride 104 Carbon Dioxide 17 L BUN 32 H Creatinine 1.30 H Estimated GFR 44 L BUN/Creatinine Ratio 24.6 H Glucose 89 Lactate 0.7 Calcium 8.1 L Total Bilirubin 0.5 AST 30 ALT 11 Alkaline Phosphatase 104 Total Protein 6.1 L Albumin 3.1 L Globulin 3.0 Albumin/Globulin Ratio 1.0 Procalcitonin 0.321 Urine RBC None seen Urine WBC None seen Ur Squamous Epith Cells 0-1 /hpf Urine Bacteria None seen Ur Culture Indicated? Cult not indicated Vol Urine Centrifuged 10ml (spun) SARS-CoV-2 (PCR) Negative Influenza A (RT-PCR) Flu a negative Influenza B (RT-PCR) Flu b negative RSV (PCR) Negative 09/08/24 06:20 WBC 2.3 L RBC 2.55 L Hgb 8.6 L Hct 25.0 L MCV 98.1 MCH 33.5 MCHC 34.2 RDW 13.2 Plt Count 132 L Neut % (Auto) 63.6 Lymph % (Auto) 13.[address] % (Auto) 18.4 H Eos % (Auto) 2.5 Baso % (Auto) 2.4 H Neut # (Auto) 1500 Lymph # (Auto) [address] # (Auto) 400 Eos # (Auto) 100 Baso # (Auto) 100 Sodium 133 L Potassium 3.4 Chloride 109 H Carbon Dioxide 16 L BUN 27 H Creatinine 1.19 H Estimated GFR 49 L BUN/Creatinine Ratio 22.7 H Glucose 93 Lactate Calcium 7.7 L Total Bilirubin AST ALT Alkaline Phosphatase Total Protein Albumin Globulin Albumin/Globulin Ratio Procalcitonin Urine RBC Urine WBC Ur Squamous Epith Cells Urine Bacteria Ur Culture Indicated? Vol Urine Centrifuged SARS-CoV-2 (PCR) Influenza A (RT-PCR) Influenza B (RT-PCR) RSV (PCR) Assessment & Plan Assessment & Plan narrative: Abdominal pain, nausea, YUKO - could be related to recent cholecystectomy with residual phlegmon or abcess, unlikely Crohn's disease, ruled out for UTI - empiric Zosyn to cover for possible gallbladder fossa infection - surgical evaluation - YUKO improving, monitor - home antihypertensives on hold, IVFs instead, hypotensive, at risk for sepsis Bipolar disorder - depakote, lamictal, buspirone, risperidone, trazodone Hypothyroidism - levothyroxine DVT prophylaxis - heparin Code: Full code Quality VTE Deep Vein Thrombosis/Pulmonary Embolism Present on Admission: No MIPS - Admit I confirm the patient?s Advance Care Plan is present, Code status is documented, Surrogate decision maker is in patient?s record [If Yes, STOP here]: Yes MIPS - Meds 'Current medications' to include all prescriptions, [id number] products, herbals, cannabis/cannabidiol products, and vitamin/mineral/dietary (nutritional) supplements. I have utilized all available resources to obtain, update, or review the patient?s current medications. [If Yes, STOP here]: Yes PROFEE Spinner Tender Document charge(s): No Charge Codes Initial inpatient/observation care: 53265
--- NOTE | 2024-09-08 10:25 | P.PN_ITS ---
Subjective Subjective Date Patient Seen: 09/08/24 Time Patient Seen: 10:25 Interval history: right upper quadrant pain 2 weeks post laparoscopic cholecystectomy Exam Vital Signs (past 8 hours): - 09/08/24 02:30 09/08/24 03:42 09/08/24 04:30 Temperature 97.7 F Pulse Rate 45 L Respiratory Rate 12 Blood Pressure 101/50 L 95/43 L Pulse Oximetry 96 Oxygen Delivery Method Room Air Oxygen Flow Rate 0 09/08/24 04:35 09/08/24 07:00 09/08/24 08:00 Temperature 97.2 F L Pulse Rate 61 Respiratory Rate 20 Blood Pressure 92/42 L 121/41 L Pulse Oximetry 100 Oxygen Delivery Method Room Air Oxygen Flow Rate 0 Oxygen Delivery Method Room Air Oxygen Flow Rate 0 Narrative Exam Narrative: Alert and oriented x3, no acute distress, in good spirits Equal chest rise, regular rate and rhythm Abdomen with multiple well-healed surgical scars, recent laparoscopic cholecystectomy scars healing with no signs and symptoms of infection. Some abdominal tenderness in the right upper quadrant, otherwise abdomen is benign. No peritonitis Const General: cooperative HENMT Head: normal to inspection Eyes General: appearance normal, both eyes and all related structures Neck Neck: normal visual inspection Chest Chest: normal inspection of the chest Resp Effort & Inspection: normal respiratory effort and able to speak in complete sentences Cardio Rate: regular rate Rhythm: regular rhythm Objective Imaging CT scan - abdomen: My impression: Small amount of fluid in the abdomen and the pelvis, tiny fluid collection in the gallbladder fossa with no surrounding inflammation Radiologist's impression: [place] [address] CT Scan Report Signed Patient: Shikha Watkins MR#: [id number] : 1950 Acct:[id number] Age/Sex: 73 / F Date of Service: 09/07/24 Loc: ED Accession Number: [id number] Procedure: CT abdomen pelvis w con Ordering Provider: nAnabel Wallace D.O. PROCEDURE: CT ABDOMEN PELVIS W CON INDICATIONS: fever, upper abd pain, s/p cholecystectomy 2wks ago, urinary TECHNIQUE: After the administration of intravenous contrast, axial sections acquired from the lung bases to the pubic symphysis. Coronal and sagittal reformats were performed. For radiation dose reduction, the following was used: automated exposure control, adjustment of mA and/or kV according to patient size. COMPARISON: [facility], MR, MR ABDOMEN WO/W CON, 08/17/2024, 10:06. [facility], CT, CT ABDOMEN PELVIS W CON, 08/16/2024, 15:45. FINDINGS: Image quality: Diagnostic. Lower Chest: No significant findings. ABDOMEN: Liver: No solid mass. Gallbladder: Removed. 9 mm focus of fluid within the gallbladder fossa. Biliary ducts: No biliary dilation. Pancreas: No ductal dilation. Spleen: Size is within normal limits. Adrenal Glands: No adrenal nodules. Kidneys and Ureters: No hydronephrosis. No solid mass multiple bilateral simple renal cysts. Stomach and Bowel: Normal colonic caliber, without significant wall thickening. Postsurgical colonic changes. Peritoneum: No abnormal intraperitoneal fluid. No free air. Ventral Wall: No significant ventral hernia. Abdominal Nodes: No retroperitoneal or mesenteric adenopathy by size criteria. Vessels: Aorta and inferior vena cava are normal in size. PELVIS: Pelvic Organs: Unremarkable. Bladder: No bladder wall thickening, accounting for underdistention. Pelvic Nodes: No enlarged lymph nodes. Miscellaneous: No inguinal hernias are seen. Bones: No aggressive osseous abnormality. Left femoral fixation. IMPRESSION: Status post cholecystectomy. There is a very minimal appearance of fluid in the gallbladder fossa measuring approximately 9 mm. This is overall nonspecific. This could represent postsurgical fluid, biloma or potentially developing phlegmon/abscess. Dictated by: Tahmina Alvarez M.D. on 09/08/2024 at 1:08 Approved by: Tahmina Alvarez M.D. on 09/08/2024 at 1:11 Labs 09/08/24 06:20 09/08/24 06:20 Labs: Laboratory Results - last 24 hr 09/07/24 09/07/24 09/07/24 20:45 21:55 23:55 WBC 2.8 L RBC 2.55 L Hgb 8.6 L Hct 25.3 L MCV 99.4 MCH 33.7 MCHC 33.9 RDW 13.5 Plt Count 140 L Neut % (Auto) 69.8 Lymph % (Auto) 11.5 L Pershing % (Auto) 15.1 H Eos % (Auto) 1.9 L Baso % (Auto) 1.7 Neut # (Auto) 2000 Lymph # (Auto) 300 L Pershing # (Auto) 400 Eos # (Auto) 100 Baso # (Auto) 0 Sodium 130 L Potassium 3.7 Chloride 104 Carbon Dioxide 17 L BUN 32 H Creatinine 1.30 H Estimated GFR 44 L BUN/Creatinine Ratio 24.6 H Glucose 89 Lactate 0.7 Calcium 8.1 L Total Bilirubin 0.5 AST 30 ALT 11 Alkaline Phosphatase 104 Total Protein 6.1 L Albumin 3.1 L Globulin 3.0 Albumin/Globulin Ratio 1.0 Procalcitonin 0.321 Urine RBC None seen Urine WBC None seen Ur Squamous Epith Cells 0-1 /hpf Urine Bacteria None seen Ur Culture Indicated? Cult not indicated Vol Urine Centrifuged 10ml (spun) SARS-CoV-2 (PCR) Negative Influenza A (RT-PCR) Flu a negative Influenza B (RT-PCR) Flu b negative RSV (PCR) Negative 09/08/24 06:20 WBC 2.3 L RBC 2.55 L Hgb 8.6 L Hct 25.0 L MCV 98.1 MCH 33.5 MCHC 34.2 RDW 13.2 Plt Count 132 L Neut % (Auto) 63.6 Lymph % (Auto) 13.1 L Pershing % (Auto) 18.4 H Eos % (Auto) 2.5 Baso % (Auto) 2.4 H Neut # (Auto) 1500 Lymph # (Auto) 300 L Pershing # (Auto) 400 Eos # (Auto) 100 Baso # (Auto) 100 Sodium 133 L Potassium 3.4 Chloride 109 H Carbon Dioxide 16 L BUN 27 H Creatinine 1.19 H Estimated GFR 49 L BUN/Creatinine Ratio 22.7 H Glucose 93 Lactate Calcium 7.7 L Total Bilirubin AST ALT Alkaline Phosphatase Total Protein Albumin Globulin Albumin/Globulin Ratio Procalcitonin Urine RBC Urine WBC Ur Squamous Epith Cells Urine Bacteria Ur Culture Indicated? Vol Urine Centrifuged SARS-CoV-2 (PCR) Influenza A (RT-PCR) Influenza B (RT-PCR) RSV (PCR) [facility] Medical History Generalized weakness Small bowel obstruction Surgical History Status post laparoscopic cholecystectomy H/O thyroidectomy Family History Mother Diabetes mellitus Heart disease Father Diabetes mellitus Heart disease Brother Myocardial infarction CVA (cerebral vascular accident) Other Hypertension Social History household members: spouse Smoking Status: Never smoker alcohol intake: former Comment: Patient had significant past surgical history is not included above. This includes a total proctocolectomy in the distant past with an ileal anal pull- through for what was at the time thought to be colitis. She had multiple complications from the surgery requiring 9 intra-abdominal operations for sepsis and bowel obstructions. She now reports multiple areas of patchy inflammation in the small intestine that is being worked up by Gastroenterology, concern for Crohn's disease. She has been on chronic steroids to keep the inflammation suppressed, she is working towards using biologics to maintain herself off her steroids. She has been without steroids for several weeks currently. Assessment & Plan Assessment & Plan narrative: Right upper quadrant pain -2 weeks post laparoscopic cholecystectomy -healing well, CT findings are reassuring and consistent with a normal postoperative course -patient does have more right upper quadrant tenderness than expected but this is multifactoral -labs do not support dx of biloma with normal bilirubin -if diagnostic dilemma after other workup could consider HIDA scan though I dont recommend it at this time -surgery will sign off, discussed with hospitalist Possible UTI- per primary team agree with abx Electrolyte derangement- per primary team agree with fluid resus. -consider relative adrenal insufficiency given chronic steroid use and recent surgery and infection/UTI Pt report bedsore on bottom with some incontinence- preexisting to hospital admission -close attention to mobility, turning in beds, and ynes care. Time-Based Coding :: [TOTAL MINUTES] spent with patient and on the chart (including review of chart, obtaining history, exam, reviewing outside data, placing orders, documenting exam and treatment plan, and counseling patient) on [DATE]. Quality VTE Deep Vein Thrombosis/Pulmonary Embolism Present on Admission: No IH PROFEE Hammer Fitter Document charge(s): Yes
--- NOTE | 2024-09-08 13:17 | CM.DANOTE ---
Patient is a 73 yo female, resident of [place] [facility], presents with SOB, N/V/D, admitted OBS Status on 09/08/24 for further work up and consultation by general surgery. PCP: Judy Davison at the [facility] Payer: KEVIN/Scott Per MD, pt with hx of ulcerative colitis, Crohn's, colectomy with J pouch, and recent Lap Beth about 2 weeks ago. Pt returns with Abd Pain and YUKO and Surgeon Consult pending. Reviewed chart, met w/patient bedside and explained role and she confirms she lives indp w/spouse at home. Patient has hx of hip and wrist fx. Hx at [facility] and w[facility]. Pt confirms she recently discharged home a couple weeks ago and started new [facility] RN/PT and she feels this has been helpful. Pt states she has been doing well at home until her pain and discomfort increased to the point of needed to come back to the hospital. Pt states her preference is to d/c home with spouse and Resume [facility]. SW updated [facility] and provided clinicals and they confirm that if pt remains OBS Status then they only need Resumption Orders at d/c. Pt appealed her discharge during last admission a couple weeks ago and review came back in favor of discharge home. Plan: SW to follow closely for Surgeon Consult to confirm safe plan of home with spouse and Resumption of [facility] RN/PT and any further identified discharge planning needs. SRIDHAR Sprague Discharge Planning/Care Management CM Discharge Assessment Start: 09/08/24 12:49 Freq: Status: Active Protocol: Document 09/08/24 12:49 BF (Rec: 09/08/24 13:17 [id number]) Discharge Planning Assessment Assigned Zoology Technical Officer SRIDHAR Turcios DPOA/Assigned Designee Name spouse Willard Vela Contact Information [phone] Advance Directives? Yes: Yes; POLST Advance Directives on File Yes History Provided By Patient,Significant Other, Medical Record Has Patient been admitted in last 30 Yes days? Comment Just discharged August 17 2024 a couple weeks ago home with [facility] for similar Prior Living Arrangements House Household Members spouse Type of transporation used prior to Relies on Others admit Independent with ADL's Yes Is patient alert and oriented? Yes Caregiver for Another No Patient/Family Preference Home with Home Health Barriers to Discharge No Discharge Plan Home Community Services Physical Therapy,Home Health Nurse Transportation Arrangement spouse Referrals Initiated Home Health Additional Comment Resume [facility] If patient plan is home with home health No: Resumption Orders only : Has signed face to face form been completed? Whiteboard Updated in Patient Room with Yes name and ext. # of Zoology Technical Officer Review Status In Process Please Provide Date Initial DC 09/08/24 Assessment Was Performed Next Review Type Continued Stay Review
[2024-09-08] MEDS: TRAZODONE 50 MG TABLET 300 MG PO (20:56)
[2024-09-08] MEDS: diphenhydrAMINE 25 MG TABLET PO (20:56)
[2024-09-08] MEDS: lamoTRIgine 100 MG TABLET 300 MG PO (20:56)
[2024-09-08] MEDS: DIVALPROEX ER 250 MG TAB 1500 MG PO (21:08)
[2024-09-09] VITALS (7 sets, daily range): BP systolic 91–133; BP diastolic 40–56; PULSE 64–77; RESP 12–19; TEMP 36.1–37; O2SAT 94–100
[2024-09-09] MEDS: ONDANSETRON 4 MG/2 ML INJ IV ×2 (00:31→09:25)
--- NOTE | 2024-09-09 00:58 | PC.NURSE ---
Patient stated she was feeling crummy, & stated she felt like her heart is racing & is feeling SOB. VSS. BP 133/56, HR 77, O2 98% on RA. lungs are clear, on tele showing NSR. Patient stated she has a hx of panic attacks and says this feels similar, using incentive spirometer and states she is feeling better. compliance monitor noted afib @ 2000, back to NSR w/o intervention. notified, continuing to monitor.
[2024-09-09] MEDS: HYDROMORPHONE 0.5 MG INJ IV ×2 (02:12→09:25)
[2024-09-09] MEDS: PIPERACILLIN/TAZO 3.375 GM in SODIUM CHLORIDE 0.9% 100 ML IV ×2 (04:06→13:15)
[2024-09-09] MEDS: SODIUM CHLORIDE 0.9% 1,000 ML 100 ML IV ×2 (04:07→13:56)
[2024-09-09] MEDS: LEVOTHYROXINE 75 MCG TABLET PO (05:41)
[2024-09-09 05:48] LABS: BUN Creatinine Ratio 14.9 (6-22); Blood Urea Nitrogen 14 mg/dL (7-17); Calcium 7.5 mg/dL (8.4-10.2); Carbon Dioxide 17 mmol/L (22-32); Chloride 113 mmol/L (98-107); Estimated Glomerular Filt Rate > 60 mL/min (>60); Glucose 90 mg/dL (80-110); HEMOLYSIS < 15 (0-50); Potassium 3.8 mmol/L (3.4-5.1); Sodium 135 mmol/L (137-145)
[2024-09-09] MEDS: risperiDONE 0.25 MG TABLET PO ×2 (09:25→15:28)
[2024-09-09] MEDS: BUSPIRONE 5 MG TABLET 15 MG PO (09:25)
[2024-09-09] MEDS: HEPARIN 5,000 UNIT/ML VIAL 5000 UNIT SUBCUT (09:25)
--- NOTE | 2024-09-09 11:54 | CM.DPNOTE ---
DCP note ENGINE TURNER reviewed EMR per provider in morning rounds, anticipate dc later today. ENGINE TURNER met with pt in room. confirms preference to dc home with [facility]. reports spouse to transport, cannot be here until 8pm. cannot afford a taxi home to [place]. Denies other DCP needs at this time. ENGINE TURNER updated Justine at [facility]. confirmed only need HH order/H&P/dc summary. ENGINE TURNER placed HH orders. ENGINE TURNER emailed H&P and HH order to [facility], dc summary to come. P: anticipate dc later today with [facility] to follow. spouse to transport. CM team will send dc summary when available/continue to follow as needed. SRIDHAR Duong
[2024-09-09] MEDS: HYDROCODONE/ACET 10/325 TABLET 1 TAB PO (13:15)
--- NOTE | 2024-09-09 17:21 | PM.DS.1 ---
History of Present Illness History of Present Illness Chief complaint: fever, feel lousy, abd px Narrative: From H&P: 73 y/o with PMH of ulcerative colitis s/p total colectomy in 1992 now with J-pouch, Crohn's disease on daily steroids, asthma, bipolar disorder, HTN, recent laparoscopic cholecystectomy, 2 weeks ago, who came complaining on nausea, abdominal pain in both upper quadrants and fever.. ED workup shows: Labs show stable pancytopenia - white count of 2.8 patient is chronically leukopenic, patient's last several days has been trending down. Hemoglobin is 8.6 she has been 9.3-8.9 earlier this month has been in the 8-9 range in January, platelets are 140. She has had occasional lows but not consistently. Sodium is 130, was 137 08/19/2024. Creatinine is 1.3, lower then in July - 1.6, Glucose is 89, procalcitonin is 0.321. Lactate is 0.7. CT abdomen pelvis status post cholecystectomy minimal appearance of fluid in gallbladder fossa proximally 9 mm overall nonspecific could be postsurgical fluid, biloma or potentially developing phlegmon abscess. Point of care urine negative for nitrates positive for leukocyte esterase no blood. No glucose or ketones. Urine micro shows no red cells no white cells 1 squamous no bacteria. covid/influenza/RSV is negative. Started empiric Zosyn for likely UTI and less likely gallbladder fossa infection. 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 Discharge Providers Provider Date of admission: 09/08/24 03:37 Discharge Date: 09/09/24 Primary care physician: Judy Davison MD Consults: 09/09/24 11:45 Consult to Home Health Routine Comment: Reason For Exam: resume previous services Discharge provider: Yonas Solo MD Summary Hospital Course Discharge Diagnosis: 1. Abdominal pain, present and improved. - could be related to recent cholecystectomy with residual phlegmon or abcess, unlikely Crohn's disease, ruled out for UTI - empiric Zosyn to cover for possible gallbladder fossa infection - surgical evaluation, completed and signed off. 2. YUKO, present on admission and improved. 3. Bipolar disorder, stable. - Continue depakote, lamictal, buspirone, risperidone, trazodone. 4. Hypothyroidism, stable. - levothyroxine. Hospital Course: She was admitted with abdominal pain which is primarily right upper quadrant and epigastric. She was evaluated with imaging which was fairly unremarkable other than a very small fluid collection in the right upper quadrant. She was on antibiotics while in the hospital and was seen by General surgery who felt that these were typical postoperative changes and likely did not represent a bile leak or other complication of surgery. The patient did improve with symptomatic treatment. She was also volume depleted with YUKO and this resolved with IV fluids. In the day of discharge she was transitioned from IV to oral pain medications. She was felt to be stable for discharge with close follow up with General surgery as scheduled in her postoperative period. Status at Discharge Cognitive/behavioral status at discharge: oriented Functional status at discharge: independent ambulation Overall status at discharge: patient is back to baseline Time Spent with Patient Time spent: Greater than 30 minutes Exam Vital Signs (past 8 hours): - 09/09/24 12:00 Temperature 97.0 F L Pulse Rate 64 Respiratory Rate 16 Blood Pressure 95/49 L Pulse Oximetry 99 Oxygen Flow Rate 0 Oxygen Delivery Method Room Air Oxygen Flow Rate 0 Narrative Exam Narrative: NAD, alert and oriented. Fluent speech. Lungs are clear, normal rate and effort. Heart is regular, no murmur gallop or rub. Abdomen is soft, non distended. Mild RUQ tenderness. Extremities are free of edema. Objective Imaging CT scan - abdomen: Radiologist's impression: IMPRESSION: Status post cholecystectomy. There is a very minimal appearance of fluid in the gallbladder fossa measuring approximately 9 mm. This is overall nonspecific. This could represent postsurgical fluid, biloma or potentially developing phlegmon/abscess. Labs 09/08/24 06:20 09/09/24 05:14 Labs: Laboratory Results - last 24 hr 09/09/24 05:14 Sodium 135 L Potassium 3.8 Chloride 113 H Carbon Dioxide 17 L BUN 14 Creatinine 0.94 Estimated GFR > 60 BUN/Creatinine Ratio 14.9 Glucose 90 Calcium 7.5 L PFSH Medical History Generalized weakness Small bowel obstruction Surgical History Status post laparoscopic cholecystectomy H/O thyroidectomy Family History Mother Diabetes mellitus Heart disease Father Diabetes mellitus Heart disease Brother Myocardial infarction CVA (cerebral vascular accident) Other Hypertension Social History household members: spouse Smoking Status: Never smoker alcohol intake: former Discharge Assessment & Plan Assessment and Plan Assessment: 1. Abdominal pain, present and improved. 2. YUKO, present and improved. Plan of Treatment: Stable for discharge home. She will follow up with surgery for post op visit as scheduled. Discharge Plan Discharge Plan Patient Disposition: Home Provider Discharge Comment: Stable for discharge home with close follow up. Discharge orders & Medications Prescriptions: New ondansetron 4 mg tablet,disintegrating 4 mg PO Q8H PRN (Reason: nausea and vomiting) 4 Days Qty: 14 0RF oxycodone 5 mg capsule 5 mg PO Q8H PRN (Reason: pain) Qty: 15 0RF Continued levothyroxine [Synthroid] 75 MCG tablet 0.075 mg PO QDAY Qty: 0 albuterol sulfate [Ventolin HFA] 90 MCG/PUFF HFA aerosol inhaler 2 puff INH Q4HP PRN (Reason: Bronchospasm) Qty: 0 lamotrigine [Lamictal] 200 MG tablet 300 mg PO BEDTIME Qty: 0 Rx Instructions: pt reportedly taking 150mg 2 tabs daily at bedtime divalproex 500 MG tablet extended release 24 hr 1,500 mg PO BEDTIME Qty: 0 acetaminophen [Tylenol Extra Strength] 500 MG tablet 1,000 mg PO Q6HP PRN (Reason: Abdominal Discomfort) risperidone 0.25 mg tablet 0.25 mg PO TID buspirone 15 mg tablet 15 mg PO BID trazodone 50 mg tablet 300 mg PO BEDTIME Rx Instructions: pt reportedly taking 100mg 3 Tabs qhs Medication counseling provided by Pharmacist: No Follow up/Referrals: Judy Davison MD [Primary Care Provider] - Discharge Health Status Multidrug resistant organism: No MDRO Diet/Activity/Treatments Diet: Low-cholesterol Skin/Wound/Dressing Care Report to your healthcare provider any signs of infection, such as:: chills, fever and increased pain Visit Report/Discharge Packet Instructions: DI for Acute Abdominal Pain, Ondansetron, Oxycodone Stand Alone Forms: Patient Portal/API Discharge Data Primary Care Provider: Judy Davison Attending Provider: Emile Lemon Admit Date/Time: 09/08/24 03:37 Quality VTE Deep Vein Thrombosis/Pulmonary Embolism Present on Admission: No
--- NOTE | 2024-09-09 20:11 | PC.NURSE ---
pt had a shower this evening, she is up and dress and ready for her to come and get her. Pt is being discharge.
== END 2024-09-09 20:35 | disposition home or self-care (01) ==
LOC: ED 23:31 → AC 09-08 03:40
PROVIDERS: Admitting Provider Internal Medicine; Emergency Provider Emergency Medicine; Family Provider Internal Medicine; PCP Internal Medicine; Referring Provider Emergency Medicine; Visit Provider Internal Medicine
DX: R10.9 Unspecified abdominal pain (principal); R11.2 Nausea with vomiting, unspecified; R19.7 Diarrhea, unspecified; N17.9 Acute kidney failure, unspecified; K50.90 Crohn's disease, unspecified, without complications; F31.9 Bipolar disorder, unspecified; J45.909 Unspecified asthma, uncomplicated; Z11.52 Encounter for screening for COVID-19; Z90.49 Acquired absence of other specified parts of digestive tract
CPT/HCPCS: 0241U; 36415; 74177; 80048; 80053; 81003; 81015; 83605; 84145; 85025; 87040; 96361; 96365; 96366; 96372; 96375; 96376; 99284; G0378; J1171; J1644; J1885; J2405; J2543; Q9967

== ENCOUNTER 2025-01-07 19:05 | Emergency (ER) | payer MEDICARE, OTHER, SELFPAY ==
[2024-09-08 03:42] VITALS: BMI 19.3
[2025-01-07] VITALS (14 sets, daily range): BP systolic 111–140; BP diastolic 54–70; PULSE 56–84; RESP 13–24; TEMP 36.8; O2SAT 76–100; BMI 20.7
--- NOTE | 2025-01-07 19:10 | DI.RAD.S_ITS ---
PROCEDURE: XR CHEST 1V INDICATIONS: Chest Pain TECHNIQUE: One view of the chest was acquired. COMPARISON: [facility], CR, XR CHEST 2V, 08/16/2024, 14:18. FINDINGS: Surgical changes and devices: None. Lungs and pleura: Lungs are clear. No pleural effusions or pneumothorax. Mediastinum: Mediastinal contours appear normal. Heart size is normal. Bones and chest wall: No suspicious bony lesions. Overlying soft tissues appear unremarkable. IMPRESSION: No acute pulmonary process. Dictated by: Tahmina Alvarez M.D. on 01/07/2025 at 20:03 Approved by: Tahmina Alvarez M.D. on 01/07/2025 at 20:03
--- NOTE | 2025-01-07 19:18 | EKG_ITS ---
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
[2025-01-07 19:42] LABS: Add Manual Diff / Slide Review NO; Hematocrit 30.2 % (36-46); Hemoglobin 10.4 g/dL (12.0-16.0); Lymphocytes Absolute Auto 1000 /uL (1100-4500); Mean Corpuscular HGB Conc 34.5 % (30-36); Mean Corpuscular Hemoglobin 34.0 PG (26-34); Mean Corpuscular Volume 98.6 fL (80-100); Platelet Count 134 X10^3/uL (150-400)
[2025-01-07 19:47] LABS: INR 0.9 (0.9-1.3); Prothrombin Time 10.4 SECONDS (9.4-12.5)
[2025-01-07 19:50] LABS: PTT Partial Thromboplastin Tim 39 SECONDS (25.1-36.5)
[2025-01-07 19:53] LABS: Alanine Aminotransferase 14 IU/L (<35); Albumin 3.4 g/dL (3.5-5.0); Albumin Globulin Ratio 1.3 (1.0-2.8); Alkaline Phosphatase 69 U/L (38-126); Blood Urea Nitrogen 33 mg/dL (7-17); Calcium 8.4 mg/dL (8.4-10.2); Carbon Dioxide 22 mmol/L (22-32); Chloride 105 mmol/L (98-107); Creatine Kinase 48 U/L (30-135); Estimated Glomerular Filt Rate > 60 mL/min (>60); Globulin 2.7 g/dL (1.7-4.1); Glucose 91 mg/dL (70-99); HEMOLYSIS < 15 (0-50); Lipase 336 U/L (23-300); Magnesium 1.7 mg/dL (1.6-2.3); Potassium 3.7 mmol/L (3.4-5.1); Sodium 133 mmol/L (137-145); Total Protein 6.1 g/dL (6.3-8.2)
[2025-01-07 20:04] LABS: NT-proBNP (BNP-Adult 18+) 454 pg/mL (<125); Troponin I < 0.012 ng/mL (0.01-0.034)
--- NOTE | 2025-01-07 22:05 | ED.ARRPALP ---
HPI - Arrhythmia/Palpitations General Chief Complaint: Arrhythmia/Palpitations Stated Complaint: sob,afib Time Seen by Provider: 01/07/25 22:05 Source: patient Mode of arrival: Ambulatory History of Present Illness HPI narrative: Patient is a 74-year-old female with past medical history of hypothyroidism, new newly diagnosed AFib not on any blood thinners just on a baby aspirin, comes into the ED from home for evaluation of shortness of breath syncope ongoing persistent for the past 2 weeks. States that she is supposed to have an echo performed tomorrow, does have an appointment with Cardiology at the [facility] on 01/21/2025. She denies any other symptoms at this time. At time of evaluation she is not complaining of any chest pain fever chills nausea vomiting abdominal pain or any other GI/ symptoms. Related Data Home Medications ?Medication ?Instructions ?Recorded ?Confirmed albuterol sulfate 90 mcg/actuation 2 puff INH Q4HP PRN Bronchospasm 04/17/16 09/08/24 aerosol inhaler (Ventolin HFA) ##0 divalproex 500 mg tablet,extended 1,500 mg PO BEDTIME ##0 04/17/16 09/08/24 release 24 hr lamotrigine 200 mg tablet 300 mg PO BEDTIME ##0 04/17/16 09/08/24 (Lamictal) levothyroxine 75 mcg tablet 0.075 mg PO QDAY ##0 04/17/16 09/08/24 (Synthroid) acetaminophen 500 mg tablet 1,000 mg PO Q6HP PRN Abdominal 05/28/21 09/08/24 (Tylenol Extra Strength) Discomfort risperidone 0.25 mg tablet 0.25 mg PO TID 02/05/24 09/08/24 buspirone 15 mg tablet 15 mg PO BID 02/06/24 09/08/24 trazodone 50 mg tablet 300 mg PO BEDTIME 08/17/24 09/08/24 Previous Rx's ?Medication ?Instructions ?Recorded oxycodone 5 mg capsule 5 mg PO Q8H PRN pain #15 caps 09/09/24 Allergies Allergy/AdvReac Type Severity Reaction Status Date / Time butorphanol Allergy Unknown Verified 09/07/24 20:35 Influenza Virus Vaccines Allergy Unknown ITCHING, Verified 09/07/24 20:35 BAD REACTION meperidine Allergy Unknown Rash Verified 09/07/24 20:35 pneumococcal vaccine Allergy Unknown Verified 09/07/24 20:35 quetiapine Allergy Unknown Verified 09/07/24 20:35 shellfish derived Allergy Unknown Verified 09/07/24 20:35 neuroleptics AdvReac Unknown PT STATES Uncoded 09/02/24 13:11 HAD REALLY BAD REACTION, UNABLE TO STATE WHAT Review of Systems Review of Systems Narrative: General: Denies fever, chills, weight loss HEENT: Denies headache, eye drainage, eye irritation, head trauma, sore throat, voice change Cardiovascular: Denies any chest pain, palpitations, tachycardia Respiratory: Positive shortness of breath, denies cough, wheeze, stridor GI/: Denies any abdominal pain, nausea, vomiting, diarrhea, bright red blood per rectum, melanotic stools, urinary frequency, urinary retention, dysuria, hematuria MSK: Denies any joint pain, muscle pains, swelling Skin: Denies any rashes, lesions, discoloration Neuro: Positive dizziness Denies any headache, lightheadedness, fainting, weakness Psych: Denies SI/HI Patient History Medical History Generalized weakness Small bowel obstruction Surgical History Status post laparoscopic cholecystectomy H/O thyroidectomy Family History Mother Diabetes mellitus Heart disease Father Diabetes mellitus Heart disease Brother Myocardial infarction CVA (cerebral vascular accident) Other Hypertension Social History household members: spouse Smoking Status: Never smoker alcohol intake: former Smoking Status: Never smoker alcohol intake frequency: 0-2 drinks per day Exam Initial Vital Signs Initial Vital Signs: Vital Signs Pulse Rate 79 01/07/25 19:13 Respiratory Rate 19 01/07/25 19:13 Blood Pressure 139/66 01/07/25 19:13 Pulse Oximetry 94 01/07/25 19:13 Course Orders Ordered: ED Orders 01/07/25 19:10 XR chest 1V Stat EKG-12 Lead Stat 01/07/25 19:25 Complete Blood Count AUTO DIFF Stat Comprehensive Metabolic Panel Stat Lipase Stat Magnesium Stat NT-proBNP (BNP-Adult 18+) Stat PTT Partial Thromboplastin Suresh Stat Prothrombin Time INR Stat Troponin & CK Cardiac Panel Stat 01/07/25 22:06 CT angio chest PE protocol Stat CT head/brain wo con Stat Discontinued Medications Aspirin (Aspirin 81 Mg Chew Tab) 324 mg PO NOW ONE Stop: 01/07/25 19:11 Vital Signs Vital signs: Vital Signs - 8 hr 01/07/25 19:13 01/07/25 19:17 01/07/25 19:30 Temperature 98.3 F Pulse Rate 79 79 77 Respiratory Rate 19 20 20 Blood Pressure 139/66 139/66 140/62 Pulse Oximetry 94 95 95 Oxygen Delivery Method Room Air 01/07/25 20:00 01/07/25 20:30 01/07/25 21:05 Temperature Pulse Rate 75 75 74 Respiratory Rate 20 16 Blood Pressure 116/55 L 111/57 L Pulse Oximetry 100 100 76 L Oxygen Delivery Method Room Air 01/07/25 21:09 01/07/25 21:09 01/07/25 21:30 Temperature Pulse Rate 70 84 Respiratory Rate 22 24 Blood Pressure 124/54 L Pulse Oximetry 100 99 Oxygen Delivery Method 01/07/25 21:30 01/07/25 22:00 01/07/25 22:30 Temperature Pulse Rate 78 65 Respiratory Rate 15 16 Blood Pressure 137/70 Pulse Oximetry 99 94 Oxygen Delivery Method 01/07/25 22:34 01/07/25 22:34 01/07/25 23:00 Temperature Pulse Rate 65 59 L Respiratory Rate 21 23 Blood Pressure 113/56 L Pulse Oximetry 98 98 Oxygen Delivery Method 01/07/25 23:01 01/07/25 23:01 01/07/25 23:30 Temperature Pulse Rate 59 L 56 L Respiratory Rate 16 13 Blood Pressure 114/58 L Pulse Oximetry 99 99 Oxygen Delivery Method 01/07/25 23:30 01/08/25 00:10 01/08/25 00:12 Temperature Pulse Rate 57 L Respiratory Rate 27 H Blood Pressure 112/57 L 133/59 L Pulse Oximetry 97 Oxygen Delivery Method 01/08/25 00:12 01/08/25 00:30 01/08/25 00:31 Temperature Pulse Rate 53 L 50 L 51 L Respiratory Rate 21 18 18 Blood Pressure Pulse Oximetry 97 100 100 Oxygen Delivery Method 01/08/25 00:31 01/08/25 01:00 01/08/25 01:01 Temperature Pulse Rate 58 L 59 L Respiratory Rate 21 30 H Blood Pressure 112/56 L Pulse Oximetry 96 98 Oxygen Delivery Method 01/08/25 01:01 Temperature Pulse Rate Respiratory Rate Blood Pressure 148/66 H Pulse Oximetry Oxygen Delivery Method MDM - Arrhythmia/Palpitations Differential Diagnosis Differential diagnosis: Likely palpitations, anxiety, sinus tachycardia, artial fibrillation, artial flutter, ventricular premature beats, supraventricular tachycardia, ventricular tachycardia and other (AFib, PE, CVA) Lab Data 01/07/25 19:25 01/07/25 19: Labs: Lab Results 01/07/25 Range/Units 19:25 WBC 2.7 L (4.5-11.0) X10^3/uL RBC 3.06 L (4.0-5.2) X10^6/uL Hgb 10.4 L (12.0-16.0) g/dL Hct 30.2 L (36-46) % MCV 98.6 (80-100) fL MCH 34.0 (26-34) PG MCHC 34.5 (30-36) % RDW 14.7 (11.6-14.8) % Plt Count 134 L (150-400) X10^3/uL Neut % (Auto) 55.8 (50-75) % Lymph % (Auto) 36.0 (25-40) % [place] % (Auto) 6.3 (3-14) % Eos % (Auto) 1.5 L (2-4) % Baso % (Auto) 0.4 (0-2) % Neut # (Auto) 1500 (5722-9902) /uL Lymph # (Auto) 1000 L (7469-8082) /uL [place] # (Auto) 200 (0-900) /uL Eos # (Auto) 0 (0-450) /uL Baso # (Auto) 0 (0-100) /uL PT 10.4 (9.4-12.5) SECONDS INR 0.9 (0.9-1.3) APTT 39 H (25.1-36.5) SECONDS Sodium 133 L (137-145) mmol/L Potassium 3.7 (3.4-5.1) mmol/L Chloride 105 (98-107) mmol/L Carbon Dioxide 22 (22-32) mmol/L BUN 33 H (7-17) mg/dL Creatinine 0.88 (0.52-1.04) mg/dL Estimated GFR > 60 (>60) mL/min BUN/Creatinine Ratio 37.5 H (6-22) Glucose 91 (70-99) mg/dL Calcium 8.4 (8.4-10.2) mg/dL Magnesium 1.7 (1.6-2.3) mg/dL Total Bilirubin 0.4 (0.2-1.3) mg/dL AST 26 (14-36) IU/L ALT 14 (<35) IU/L Alkaline Phosphatase 69 (38-126) U/L Total Creatine Kinase 48 (30-135) U/L Troponin I < 0.012 (0.01-0.034) ng/mL NT-Pro-B Natriuret Pep 454 H (<125) pg/mL Total Protein 6.1 L (6.3-8.2) g/dL Albumin 3.4 L (3.5-5.0) g/dL Globulin 2.7 (1.7-4.1) g/dL Albumin/Globulin Ratio 1.3 (1.0-2.8) Lipase 336 H (23-300) U/L Imaging Data CT scan - head: Radiologist's Impresson: [place] [address] CT Scan Report Signed Patient: Shikha Watkins MR#: [id number] : 1950 Acct:[id number] Age/Sex: 74 / F Date of Service: 01/07/25 Loc: ED Accession Number: [id number] Procedure: CT head/brain wo con Ordering Provider: Zane Herbert D.O. PROCEDURE: CT HEAD/BRAIN WO CON INDICATIONS: dizzy, syncope TECHNIQUE: Noncontrast 4.5 mm thick angled axial sections acquired from the foramen magnum to the vertex, with coronal and sagittal reformats. For radiation dose reduction, the following was used: automated exposure control, adjustment of mA and/or kV according to patient size. COMPARISON: [facility], CT, CT HEAD/BRAIN WO CON, 06/22/2021, 18:45. FINDINGS: Image quality: Diagnostic. CSF spaces: Basal cisterns are patent. No extra-axial fluid collections. The ventricles are symmetric in size and shape. Brain: No intracranial bleeds or mass effect. There is cerebral volume loss, with resultant ventricular and sulcal prominence. There are periventricular and deep white matter chronic small vessel ischemic changes. There is intracranial internal carotid artery atherosclerosis. Skull and face: Calvarium and visualized facial bones appear intact, without suspicious lesions. Sinuses: Visualized sinuses and mastoids are clear. IMPRESSION: No acute intracranial pathology. CT PE: Radiologist's Impresson: [address] [address] [address] Scan Report Signed Patient: Shikha Watkins MR#: [id number] : 1950 Acct:[id number] Age/Sex: 74 / F Date of Service: 01/07/25 Loc: ED Accession Number: [id number] Procedure: CT angio chest PE protocol Ordering Provider: Zane Herbert D.O. PROCEDURE: CT ANGIO CHEST PE PROTOCOL INDICATIONS: sob, hx of afib not on thinners TECHNIQUE: After the administration of intravenous contrast, 2 mm thick sections acquired from the pulmonary apices to the posterior costophrenic angles. 3-dimensional maximum intensity projection (MIP) coronal and sagittal reformats were then acquired through the thorax. For radiation dose reduction, the following was used: automated exposure control, adjustment of mA and/or kV according to patient size. COMPARISON: [facility], CT, CT ABDOMEN PELVIS W CON, 09/07/2024, 23:49. FINDINGS: Image quality: Diagnostic. Pulmonary arteries: Pulmonary arteries are normal in size, and demonstrate no intraluminal filling defects to suggest central pulmonary embolism. Lower Neck: No enlarged lymph nodes. Thyroid: Right thyroid lobectomy. Axillae: No enlarged lymph nodes. Chest Wall: Unremarkable. Bones: Stable L2 compression deformity. Healed sternal body fracture. Osteoporosis. Lungs and Pleura: No pneumothorax or pleural effusions. Juxtapleural nodules with smooth margins, favoring benign intrapulmonary lymph nodes. No consolidation. Heart: Heart size is normal. No pericardial effusion. Thoracic Vessels: No aortic aneurysm. Mediastinum and Jeanna: No enlarged lymph nodes. Esophagus: No wall thickening. No hiatal hernia. Ellie fundoplication. Upper Abdomen: Similar nodular thickening of the left adrenal gland. Stable punctate renal cysts. IMPRESSION: No pulmonary embolus. No acute cardiopulmonary process. Chest x-ray: Radiologist's Impresson: [address] [address] XRay Report Signed Patient: Shikha Watkins MR#: [id number] : 1950 Acct:[id number] Age/Sex: 74 / F Date of Service: 01/07/25 Loc: ED Accession Number: [id number] Procedure: XR chest 1V Ordering Provider: Zane Herbert D.O. PROCEDURE: XR CHEST 1V INDICATIONS: Chest Pain TECHNIQUE: One view of the chest was acquired. COMPARISON: [facility], CR, XR CHEST 2V, 08/16/2024, 14:18. FINDINGS: Surgical changes and devices: None. Lungs and pleura: Lungs are clear. No pleural effusions or pneumothorax. Mediastinum: Mediastinal contours appear normal. Heart size is normal. Bones and chest wall: No suspicious bony lesions. Overlying soft tissues appear unremarkable. IMPRESSION: No acute pulmonary process. ECG Data Interpretation: EKG interpreted ED physician sinus 74 beats per minute, QTC 426, KS QRS interval within normal limits, incomplete right bundle josh block noted nonspecific ST changes no STEMI MDM Narrative Medical decision making narrative: Patient is a 74-year-old female with a past medical history of hypothyroidism, recent diagnosis of AFib not on any blood thinners, only takes baby aspirin, presents for dizziness shortness of breath persistent worsening over the past 2 weeks, states that she also had 1 episode of syncope on 12/22/2024. Patient does have an appointment with [facility] Cardiology on 01/21/2025, is also supposed to have an echo tomorrow. Patient's EKG here sinus arrhythmia at 74 beats per minute QTC 426, QRS KS interval within normal limits, no STEMI. Lab work leukopenic at baseline 2.6, Chem panel unremarkable, troponin negative BNP only slightly elevated at 454, patient without any acute cardiopulmonary abnormality on chest x-ray, patient did have CT scan head, CT PE without any acute findings. Patient's symptoms possibly secondary to patient intermittently going into AFib however today patient remained in normal sinus, had no active chest pain shortness of breath, does have an appointment with Cardiology, she was given strict return precautions he verbalized understanding of this and agrees to being discharged home with outpatient follow up. CHADS-VASc 4, I did discuss risks benefits and starting a blood thinner, however patient states that she already had the discussion with her primary care doctor today and states that it was decided that they would hold off until discussion with Cardiology. Discharge Plan Departure Patient Disposition: Home Clinical Impression: Dyspnea Instructions: DI for Atrial Fibrillation Activity Restrictions/Additional Instructions: Please follow up with Cardiology and your primary care doctor for your scheduled appointment Please read the discharge instructions sheet carefully and bring all papers to all doctor follow-up visits, as it may contain information that your doctor may want to see. Disease processes change and evolve, if your symptoms worsen or if you develop any new symptoms that are concerning to you please return for evaluation. Your evaluation today does not show any evidence of any life-threatening/serious illnesses requiring admission to the hospital or surgery. Please follow-up with your doctor for re-evaluation in approximately 1 day. Seek immediate medical attention for any worrisome symptoms. *If you do not have a primary care provider please contact the [facility] Resource line at [phone]. They will ask some questions about your medical history and help get you set up with a doctor in the community. Prescriptions: No Action levothyroxine [Synthroid] 75 MCG tablet 0.075 mg PO QDAY Qty: 0 albuterol sulfate [Ventolin HFA] 90 MCG/PUFF HFA aerosol inhaler 2 puff INH Q4HP PRN (Reason: Bronchospasm) Qty: 0 lamotrigine [Lamictal] 200 MG tablet 300 mg PO BEDTIME Qty: 0 Rx Instructions: pt reportedly taking 150mg 2 tabs daily at bedtime divalproex 500 MG tablet extended release 24 hr 1,500 mg PO BEDTIME Qty: 0 acetaminophen [Tylenol Extra Strength] 500 MG tablet 1,000 mg PO Q6HP PRN (Reason: Abdominal Discomfort) risperidone 0.25 mg tablet 0.25 mg PO TID buspirone 15 mg tablet 15 mg PO BID trazodone 50 mg tablet 300 mg PO BEDTIME Rx Instructions: pt reportedly taking 100mg 3 Tabs qhs oxycodone 5 mg capsule 5 mg PO Q8H PRN (Reason: pain) Qty: 15 0RF Referrals: Ramiro García MD [Physician, Cardiology] - As soon as possible Referral Note: New onset AFib Judy Davison MD [Primary Care Provider, Medical] Stand Alone Forms: Patient Portal/API
[2025-01-08 00:10] VITALS: PULSE 57; RESP 27; O2SAT 97
[2025-01-08 00:12] VITALS: BP 133/59; PULSE 53; RESP 21; O2SAT 97
[2025-01-08 00:30] VITALS: PULSE 50; RESP 18; O2SAT 100
[2025-01-08 00:31] VITALS: BP 112/56; PULSE 51; RESP 18; O2SAT 100
[2025-01-08 01:00] VITALS: PULSE 58; RESP 21; O2SAT 96
[2025-01-08 01:01] VITALS: BP 148/66; PULSE 59; RESP 30; O2SAT 98
== END 2025-01-08 02:00 | disposition home or self-care (01) ==
PROVIDERS: Emergency Provider Student in an Organized Health Care Education/Training Program; Family Provider Internal Medicine; PCP Internal Medicine
DX: R06.00 Dyspnea, unspecified (principal); R07.9 Chest pain, unspecified; R42 Dizziness and giddiness
CPT/HCPCS: 36415; 70450; 71045; 71275; 80053; 82550; 83690; 83735; 83880; 84484; 85025; 85610; 85730; 93005; 99283; 99284; Q9967

== ENCOUNTER 2025-04-19 16:36 | Emergency (ER) | payer MEDICARE, OTHER, SELFPAY ==
[2024-09-08 03:42] VITALS: BMI 19.3
[2025-04-19] VITALS (22 sets, daily range): BP systolic 96–128; BP diastolic 51–67; PULSE 68–93; RESP 15–26; TEMP 36.9; O2SAT 94–99; BMI 19.5
[2025-04-19] MEDS: SODIUM CHLORIDE 0.9% 1,000 ML 1000 ML IV ×2 (17:30→19:55)
[2025-04-19 17:40] LABS: Add Manual Diff / Slide Review NO; Hematocrit 39.4 % (36-46); Hemoglobin 13.2 g/dL (12.0-16.0); Lymphocytes Absolute Auto 900 /uL (1100-4500); Mean Corpuscular HGB Conc 33.5 % (30-36); Mean Corpuscular Hemoglobin 33.2 PG (26-34); Mean Corpuscular Volume 99.3 fL (80-100); Platelet Count 136 X10^3/uL (150-400)
[2025-04-19 17:44] LABS: Alanine Aminotransferase 38 IU/L (<35); Albumin 3.6 g/dL (3.5-5.0); Albumin Globulin Ratio 1.2 (1.0-2.8); Alkaline Phosphatase 87 U/L (38-126); Blood Urea Nitrogen 27 mg/dL (7-17); Calcium 8.9 mg/dL (8.4-10.2); Carbon Dioxide 19 mmol/L (22-32); Chloride 106 mmol/L (98-107); Estimated Glomerular Filt Rate 48 mL/min (>60); Globulin 3.0 g/dL (1.7-4.1); Glucose 98 mg/dL (70-99); HEMOLYSIS < 15 (0-50); Potassium 4.3 mmol/L (3.4-5.1); Sodium 133 mmol/L (137-145); Total Protein 6.6 g/dL (6.3-8.2)
--- NOTE | 2025-04-19 18:07 | ED.NAVMDI ---
HPI - Nausea/Vomiting/Diarrhea General Chief complaint: Nausea/Vomiting/Diarrhea Stated complaint: diarrhea, dehydrated, seen yest @[facility] Time Seen by Provider: 04/19/25 17:00 Source: patient and family Mode of arrival: Wheelchair History of Present Illness HPI Narrative: 74-year-old female with history of inflammatory bowel disease, remote reported diagnosis of ulcerative colitis leading to 1992 total colectomy [facility], later diagnosis of Crohn's disease 2023 [facility], followed by area gastroenterology Dr. Betancourt at [facility], taking Humira since 2023, no recent systemic steroids. Had fall yesterday with evaluation outside facility ED [facility], reports bruising to the right periorbital facial area, and neck discomfort, recalls having CT head study, CT neck in face studies, eventually had MRI studies and phone consultations with specialists at [facility], but discharged home, no soft/hard collar. No new interim injury. No abdominal pain at that time, no abdominal trauma known. But increasing abdominal pain generalized since that fall in ED visit. History of Crohn's disease, concern for Crohn's related problem. Having loose stools, no black or red stools. Not feeling feverish. Had nausea with vomiting nonbloody x2 episodes. Related Data Home Medications ?Medication ?Instructions ?Recorded ?Confirmed albuterol sulfate 90 mcg/actuation 2 puff INH Q4HP PRN Bronchospasm 04/17/16 09/08/24 aerosol inhaler (Ventolin HFA) ##0 divalproex 500 mg tablet,extended 1,500 mg PO BEDTIME ##0 04/17/16 09/08/24 release 24 hr lamotrigine 200 mg tablet 300 mg PO BEDTIME ##0 04/17/16 09/08/24 (Lamictal) levothyroxine 75 mcg tablet 0.075 mg PO QDAY ##0 04/17/16 09/08/24 (Synthroid) acetaminophen 500 mg tablet 1,000 mg PO Q6HP PRN Abdominal 05/28/21 09/08/24 (Tylenol Extra Strength) Discomfort risperidone 0.25 mg tablet 0.25 mg PO TID 02/05/24 09/08/24 buspirone 15 mg tablet 15 mg PO BID 02/06/24 09/08/24 trazodone 50 mg tablet 300 mg PO BEDTIME 08/17/24 09/08/24 Previous Rx's ?Medication ?Instructions ?Recorded oxycodone 5 mg capsule 5 mg PO Q8H PRN pain #15 caps 09/09/24 Allergies Allergy/AdvReac Type Severity Reaction Status Date / Time butorphanol Allergy Unknown Verified 04/19/25 16:47 Influenza Virus Vaccines Allergy Unknown ITCHING, Verified 04/19/25 16:47 BAD REACTION meperidine Allergy Unknown Rash Verified 04/19/25 16:47 pneumococcal vaccine Allergy Unknown Verified 04/19/25 16:47 quetiapine Allergy Unknown Verified 04/19/25 16:47 shellfish derived Allergy Unknown Verified 04/19/25 16:47 neuroleptics AdvReac Unknown PT STATES Uncoded 04/19/25 16:47 HAD REALLY BAD REACTION, UNABLE TO STATE WHAT Patient History Medical History Generalized weakness Small bowel obstruction Surgical History Status post laparoscopic cholecystectomy H/O thyroidectomy Family History Mother Diabetes mellitus Heart disease Father Diabetes mellitus Heart disease Brother Myocardial infarction CVA (cerebral vascular accident) Other Hypertension Social History household members: spouse alcohol intake: former alcohol intake frequency: 0-2 drinks per day Exam Narrative Exam Narrative: GENERAL: Well-developed patient, in mild distress. HEAD: Atraumatic. Normocephalic. EYES: Pupils equal round and reactive. Extraocular motions intact. No scleral icterus. No injection or drainage. ENT: Nose without bleeding, purulent drainage. Throat without erythema, tonsillar hypertrophy or exudate. Airway patent. NECK: Trachea midline. Non tender CARDIOVASCULAR: Regular rate and rhythm without murmurs, gallops, or rubs. RESPIRATORY: Clear to auscultation. Breath sounds equal bilaterally. No wheezes, rales, or rhonchi. GASTROINTESTINAL: Nondistended, bowel tones without rushes or tinkles, mild generalized tenderness, no obvious ventral hernia. EXTREMITIES: No edema or joint tenderness. BACK: Nontender without deformity or crepitance. No flank tenderness. NEURO: AOx3. Motor functions grossly nonfocal. SKIN: No rash or erythema of visible areas Initial Vital Signs Initial Vital Signs: Vital Signs Pulse Rate 77 04/19/25 16:44 Pulse Oximetry 95 04/19/25 16:44 Course Orders Ordered: ED Orders 04/19/25 19:46 CT abdomen pelvis w con Stat 04/19/25 20:00 Lactate (Lactic Acid) Stat 04/19/25 22:08 GI Panel (Film Array) Stat Urine Microscopic Stat Discontinued Medications Hydromorphone HCl (Hydromorphone Hcl 0.5 Mg/0.5 Ml Syringe) 0.5 mg IV NOW ONE Stop: 04/19/25 19:47 Last Admin: 04/19/25 19:56 Dose: 0.5 mg Documented By: CORINA Hydromorphone HCl (Hydromorphone Hcl 0.5 Mg/0.5 Ml Syringe) 0.5 mg IV NOW ONE Stop: 04/19/25 23:22 Last Admin: 04/19/25 23:32 Dose: 0.5 mg Documented By: ADELINE Sodium Chloride (Normal Saline 0.9%) 1,000 mls @ 1,000 mls/hr IV BOLUS ONE Stop: 04/19/25 17:59 Last Infusion: 04/19/25 18:26 Dose: Infused Documented By: Admin: 04/19/25 17:30 Dose: 1,000 mls/hr Documented By: CORINA Sodium Chloride (Normal Saline 0.9%) 1,000 mls @ 1,000 mls/hr IV BOLUS ONE Stop: 04/19/25 20:52 Last Infusion: 04/19/25 20:59 Dose: Infused Documented By: [facility] Admin: 04/19/25 19:55 Dose: 1,000 mls/hr Documented By: [facility] Vital Signs Vital signs: Vital Signs - 8 hr 04/19/25 20:30 04/19/25 21:00 04/19/25 21:05 Pulse Rate 84 74 Respiratory Rate 20 19 Blood Pressure 120/63 Pulse Oximetry 95 Oxygen Delivery Method 04/19/25 21:05 04/19/25 21:30 04/19/25 21:30 Pulse Rate 82 84 Respiratory Rate 18 24 Blood Pressure 112/55 L Pulse Oximetry 94 97 Oxygen Delivery Method 04/19/25 22:00 04/19/25 22:42 04/19/25 22:43 Pulse Rate 88 88 Respiratory Rate 23 19 Blood Pressure 107/57 L Pulse Oximetry 98 99 Oxygen Delivery Method 04/19/25 22:43 04/19/25 23:00 04/19/25 23:00 Pulse Rate 71 69 Respiratory Rate 18 15 Blood Pressure 113/55 L Pulse Oximetry 94 95 Oxygen Delivery Method Room Air 04/19/25 23:30 04/19/25 23:31 04/19/25 23:31 Pulse Rate 68 69 Respiratory Rate 25 H 26 H Blood Pressure 99/51 L Pulse Oximetry 94 96 Oxygen Delivery Method Room Air Room Air MDM - Nausea/Vomiting/Diarrhea Lab Data Attestation: I reviewed the patient's lab results. Lab results narrative: White blood cell count 5600, hemoglobin 13.2, platelets adequate. Glucose 98. BUN 27 with creatinine 1.2. Serum CO2 19 decreased. Potassium 4.3 normal. Sodium 133 slight low. Slight transaminitis, total bilirubin and alkaline phosphatase normal. 04/19/25 17:29 04/19/25 17:29 Labs: Lab Results 04/19/25 04/19/25 04/19/25 Range/Units 17:29 20:00 22:08 WBC 5.6 (4.5-11.0) X10^3/uL RBC 3.96 L (4.0-5.2) X10^6/uL Hgb 13.2 (12.0-16.0) g/dL Hct 39.4 (36-46) % MCV 99.3 (80-100) fL MCH 33.2 (26-34) PG MCHC 33.5 (30-36) % RDW 13.7 (11.6-14.8) % Plt Count 136 L (150-400) X10^3/uL Neut % (Auto) 75.3 H (50-75) % Lymph % (Auto) 16.0 L (25-40) % [place] % (Auto) 8.3 (3-14) % Eos % (Auto) 0.2 L (2-4) % Baso % (Auto) 0.2 (0-2) % Neut # (Auto) 4300 (1988-6290) /uL Lymph # (Auto) 900 L (3243-6251) /uL [place] # (Auto) 500 (0-900) /uL Eos # (Auto) 0 (0-450) /uL Baso # (Auto) 0 (0-100) /uL Sodium 133 L (137-145) mmol/L Potassium 4.3 (3.4-5.1) mmol/L Chloride 106 (98-107) mmol/L Carbon Dioxide 19 L (22-32) mmol/L BUN 27 H (7-17) mg/dL Creatinine 1.20 H (0.52-1.04) mg/dL Estimated GFR 48 L (>60) mL/min BUN/Creatinine Ratio 22.5 H (6-22) Glucose 98 (70-99) mg/dL Lactate 0.9 (0.7-2.1) mmol/L Calcium 8.9 (8.4-10.2) mg/dL Total Bilirubin 0.7 (0.2-1.3) mg/dL AST 51 H (14-36) IU/L ALT 38 H (<35) IU/L Alkaline Phosphatase 87 (38-126) U/L Total Protein 6.6 (6.3-8.2) g/dL Albumin 3.6 (3.5-5.0) g/dL Globulin 3.0 (1.7-4.1) g/dL Albumin/Globulin Ratio 1.2 (1.0-2.8) Procalcitonin 0.052 (<0.5) ng/mL Urine RBC None seen (0-5/HPF) Urine WBC None seen (0-5/HPF) Ur Squamous Epith Cells 1-5 /hpf (0-5/HPF) Urine Bacteria None seen (None) Ur Culture Indicated? Cult not indicated Vol Urine Centrifuged 10ml (spun) Stl C. cayetanensis PCR Not detected (Not Detect) Stool Rotavirus (PCR) Not detected (Not Detect) Stool Adenovirus (PCR) Not detected (Not Detect) Stool Astrovirus (PCR) Not detected (Not Detect) Stool Cryptosporidium PCR Not detected (Not Detect) Stl E.coli Shiga Tox PCR Not detected (Not Detect) St Sh/Enteroin Ecoli PCR Not detected (Not Detect) Stl Enterotoxigenic E PCR Not detected (Not Detect) Stool EPEC (PCR) Not detected (Not Detect) Stl E. histolytica PCR Not detected (Not Detect) Stool Giardia Lamblia PCR Not detected (Not Detect) Stool Sapovirus (PCR) Not detected (Not Detect) Stl P. shigelloides PCR Not detected (Not Detect) St Y.enterocolitica PCR Not detected (Not Detect) Stool Vibrio (PCR) Not detected (Not Detect) Stl Vibrio cholerae PCR Not detected (Not Detect) Stl Enteroaggr Ecoli PCR Not detected (Not Detect) Stl Norovirus GI/GII PCR Not detected (Not Detect) Campylobacter (PCR) Not detected (Not Detect) C. difficile Tox (PCR) Not detected (Not Detect) Salmonella (PCR) Not detected (Not Detect) Imaging Data CT scan - abdomen/pelvis: Radiologist's Impression: [address] [address] [address] Scan Report Signed Patient: Shikha Watkins MR#: [id number] : 1950 Acct:[id number] Age/Sex: 74 / F Date of Service: 04/19/25 Loc: ED Accession Number: [id number] Procedure: CT abdomen pelvis w con Ordering Provider: Benny Skinner MD PROCEDURE: CT ABDOMEN PELVIS W CON INDICATIONS: abd pain, hx Crohns TECHNIQUE: After the administration of intravenous contrast, axial sections acquired from the lung bases to the pubic symphysis. Coronal and sagittal reformats were performed. For radiation dose reduction, the following was used: automated exposure control, adjustment of mA and/or kV according to patient size. COMPARISON: [facility], CT, CT ABDOMEN PELVIS W CON, 09/07/2024, 23:49. FINDINGS: Image quality: Diagnostic. Lower Chest: Small bilateral pleural effusions. Small hiatal hernia. ABDOMEN: Liver: No solid mass. Gallbladder: Post cholecystectomy. Biliary ducts: Post cholecystectomy reservoir effect of the common bile duct. No calcified choledocholithiasis. Pancreas: No ductal dilation. Spleen: Size is within normal limits. Adrenal Glands: No adrenal nodules. Kidneys and Ureters: No hydronephrosis. No solid mass. No complex renal cystic lesion which requires follow up. Stomach and Bowel: Changes of colectomy with small bowel to rectal anastomosis. The small bowel proximal to the rectum is distended with liquid stool. Additional small bowel narrowing in the midline upper abdomen adjacent to surgical clips, concerning for possible small bowel obstruction. Changes of Ellie fundoplication. Peritoneum: Small volume ascites. No free air. Ventral Wall: No significant ventral hernia. Abdominal Nodes: No retroperitoneal or mesenteric adenopathy by size criteria. Vessels: Aorta and inferior vena cava are normal in size. PELVIS: Pelvic Organs: Unremarkable. Bladder: No bladder wall thickening, accounting for underdistention. Pelvic Nodes: No enlarged lymph nodes. Miscellaneous: No inguinal hernias are seen. Bones: No aggressive osseous abnormality. Chronic L2 compression deformity. Diffuse osseous demineralization. Changes of left femoral intramedullary nailing. IMPRESSION: Changes of colectomy with distended WA dilated small bowel in the central abdomen adjacent to postsurgical changes concerning for possible small bowel obstruction secondary to adhesions. Dilated distal small bowel at the rectum with liquid stool, correlate for diarrhea. Small volume ascites and small bilateral pleural effusions. No pneumoperitoneum. Dictated by: Richard Steele M.D. on 04/19/2025 at 20:39 Approved by: Richard Steele M.D. on 04/19/2025 at 20:48 MDM Narrative Medical decision making narrative: 74-year-old female with history of inflammatory bowel disease, remote diagnosis of ulcerative colitis leading to 1992 total colectomy [facility], later diagnosis of Crohn's disease 2023 [facility], followed by area gastroenterology Dr. Betancourt at [facility], taking Humira since 2023, no longer taking steroids, none recent. Fall yesterday, right periorbital contusion, was evaluated at ED [facility] yesterday, discharged home, having increasing abdominal discomfort, nausea and nonbloody emesis, also loose stools today without black or red color. Afebrile, SIRS screen negative. Records from [facility] ED visit Lab data: White blood cell count 5600, hemoglobin 13.2, platelets adequate. Glucose 98. BUN 27 with creatinine 1.2. Serum CO2 19 decreased. Potassium 4.3 normal. Sodium 133 slight low. Slight transaminitis, total bilirubin and alkaline phosphatase normal. GI panel negative including C diff. CT abdomen pelvis. IMPRESSION: Changes of colectomy with distended dilated small bowel in the central abdomen adjacent to postsurgical changes concerning for possible small bowel obstruction secondary to adhesions. Dilated distal small bowel at the rectum with liquid stool, correlate for diarrhea. Small volume ascites and small bilateral pleural effusions. No pneumoperitoneum. See radiology report. 2100, discussed with on-call surgery Dr Gonzalez, recommends transfer to GI capable facility. Will reach out to [place] [facility], followed by GI doctor Dr Regine Kwan/[facility]. Patient refuses NG tube. Await call back from GI. 2229, discussed with [facility] GI Dr Crawford, can consult, no steroids, advises surgical consultation, if surgery not comfortable here then transfer to their facility for surgical consultation, GI consultation as needed. Surgery already expressed their discomfort here with management, will request transfer for surgical consultation with [facility]. 2244, discussed with surgery Dr Charly Vargas surgery, who will consult thru their ED. 2249, discussed with [facility] ED Dr Moraes who accepts patient for transfer Critical Care Time Critical Care Time Critical Care Time: Yes Total Critical Care Time: 31 Attestation: The high probability of a clinically significant, sudden or life threatening deterioration of the [gastrointestinal, abdominopelvic] system(s) required my full and direct attention, intervention and personal management. The aggregate critical care time was [31] minutes. This time is in addition to time spent performing reported procedures but includes the following: [x] Data Review and interpretation [x] Patient assessment and monitoring of vital signs [x] Documentation [x] Medication orders and management Discharge Plan Departure Patient Disposition: [facility] Clinical Impression: Small bowel obstruction, History of recent fall, History of Crohn's disease Prescriptions: No Action levothyroxine [Synthroid] 75 MCG tablet 0.075 mg PO QDAY Qty: 0 albuterol sulfate [Ventolin HFA] 90 MCG/PUFF HFA aerosol inhaler 2 puff INH Q4HP PRN (Reason: Bronchospasm) Qty: 0 lamotrigine [Lamictal] 200 MG tablet 300 mg PO BEDTIME Qty: 0 Rx Instructions: pt reportedly taking 150mg 2 tabs daily at bedtime divalproex 500 MG tablet extended release 24 hr 1,500 mg PO BEDTIME Qty: 0 acetaminophen [Tylenol Extra Strength] 500 MG tablet 1,000 mg PO Q6HP PRN (Reason: Abdominal Discomfort) risperidone 0.25 mg tablet 0.25 mg PO TID buspirone 15 mg tablet 15 mg PO BID trazodone 50 mg tablet 300 mg PO BEDTIME Rx Instructions: pt reportedly taking 100mg 3 Tabs qhs oxycodone 5 mg capsule 5 mg PO Q8H PRN (Reason: pain) Qty: 15 0RF Referrals: Judy Davison MD [Primary Care Provider, Medical]
--- NOTE | 2025-04-19 19:46 | DI.CT.S_ITS ---
PROCEDURE: CT ABDOMEN PELVIS W CON INDICATIONS: abd pain, hx Crohns TECHNIQUE: After the administration of intravenous contrast, axial sections acquired from the lung bases to the pubic symphysis. Coronal and sagittal reformats were performed. For radiation dose reduction, the following was used: automated exposure control, adjustment of mA and/or kV according to patient size. COMPARISON: [facility], CT, CT ABDOMEN PELVIS W CON, 09/07/2024, 23:49. FINDINGS: Image quality: Diagnostic. Lower Chest: Small bilateral pleural effusions. Small hiatal hernia. ABDOMEN: Liver: No solid mass. Gallbladder: Post cholecystectomy. Biliary ducts: Post cholecystectomy reservoir effect of the common bile duct. No calcified choledocholithiasis. Pancreas: No ductal dilation. Spleen: Size is within normal limits. Adrenal Glands: No adrenal nodules. Kidneys and Ureters: No hydronephrosis. No solid mass. No complex renal cystic lesion which requires follow up. Stomach and Bowel: Changes of colectomy with small bowel to rectal anastomosis. The small bowel proximal to the rectum is distended with liquid stool. Additional small bowel narrowing in the midline upper abdomen adjacent to surgical clips, concerning for possible small bowel obstruction. Changes of Ellie fundoplication. Peritoneum: Small volume ascites. No free air. Ventral Wall: No significant ventral hernia. Abdominal Nodes: No retroperitoneal or mesenteric adenopathy by size criteria. Vessels: Aorta and inferior vena cava are normal in size. PELVIS: Pelvic Organs: Unremarkable. Bladder: No bladder wall thickening, accounting for underdistention. Pelvic Nodes: No enlarged lymph nodes. Miscellaneous: No inguinal hernias are seen. Bones: No aggressive osseous abnormality. Chronic L2 compression deformity. Diffuse osseous demineralization. Changes of left femoral intramedullary nailing. IMPRESSION: Changes of colectomy with distended [place] dilated small bowel in the central abdomen adjacent to postsurgical changes concerning for possible small bowel obstruction secondary to adhesions. Dilated distal small bowel at the rectum with liquid stool, correlate for diarrhea. Small volume ascites and small bilateral pleural effusions. No pneumoperitoneum. Dictated by: Richard Steele M.D. on 04/19/2025 at 20:39 Approved by: Richard Steele M.D. on 04/19/2025 at 20:48
[2025-04-19 20:18] LABS: Procalcitonin 0.052 ng/mL (<0.5)
[2025-04-19 20:18] LABS: Lactate (Lactic Acid) 0.9 mmol/L (0.7-2.1)
[2025-04-19 23:14] LABS: Culture Indicated Urine Cult Not Indicated
[2025-04-19 23:42] LABS: Clostridium difficile toxin AB Not Detected (Not Detect); Enteroaggregative E.coli Not Detected (Not Detect); Enteropathogenic E.coli Not Detected (Not Detect); Enterotoxigenic E.coli It/st Not Detected (Not Detect); Plesiomonsa shigelloides Not Detected (Not Detect); Shiga-like toxin-prod E.coli Not Detected (Not Detect)
== END 2025-04-20 00:03 | disposition short-term general hospital (02) ==
PROVIDERS: Emergency Medicine; Emergency Provider Emergency Medicine; PCP Internal Medicine
DX: K56.609 Unspecified intestinal obstruction, unspecified as to partial versus complete obstruction (principal); K50.90 Crohn's disease, unspecified, without complications; S05.11XD Contusion of eyeball and orbital tissues, right eye, subsequent encounter; W19.XXXD Unspecified fall, subsequent encounter; R11.2 Nausea with vomiting, unspecified
CPT/HCPCS: 36415; 74177; 80053; 81015; 83605; 84145; 85025; 87507; 96361; 96374; 96376; 99284; 99291; J1171; J7030

== ENCOUNTER 2025-05-07 19:28 | Inpatient (IN) | payer MEDICARE, OTHER, SELFPAY ==
[2024-09-08 03:42] VITALS: BMI 19.3
[2025-05-07] VITALS (8 sets, daily range): BP systolic 110–138; BP diastolic 57–68; PULSE 43–68; RESP 18; TEMP 36.7; O2SAT 97–100; BMI 20.5
--- NOTE | 2025-05-07 20:47 | ED.ABDPAIN ---
HPI - Abdominal Pain General Chief Complaint: Abdominal Pain Stated Complaint: prev bowel obst., no BM for 2days, pn under ribs Time Seen by Provider: 05/07/25 19:32 Source: patient Mode of arrival: Wheelchair History of Present Illness HPI narrative: 74-year-old female history of inflammatory bowel disease remote reported diagnosis of ulcerative colitis leading to 1992 total colectomy [facility] later diagnosed with Crohn's disease 2023 [facility] follow up by [facility] optimal recently discharged from [facility] after thorough workup at [facility] for rehab presents today wtih R sided epigastric pain and nausea. She last ate yesterday has not passed gas today or had a bm yet. She did take one pain pill at rehab but is concerned she may be obstructed and came into be evaluated. Other than what is stated 14 point review of system is negative. Related Data Home Medications ?Medication ?Instructions ?Recorded ?Confirmed albuterol sulfate 90 mcg/actuation 2 puff INH Q4HP PRN Bronchospasm 04/17/16 09/08/24 aerosol inhaler (Ventolin HFA) ##0 divalproex 500 mg tablet,extended 1,500 mg PO BEDTIME ##0 04/17/16 09/08/24 release 24 hr lamotrigine 200 mg tablet 300 mg PO BEDTIME ##0 04/17/16 09/08/24 (Lamictal) levothyroxine 75 mcg tablet 0.075 mg PO QDAY ##0 04/17/16 09/08/24 (Synthroid) acetaminophen 500 mg tablet 1,000 mg PO Q6HP PRN Abdominal 05/28/21 09/08/24 (Tylenol Extra Strength) Discomfort risperidone 0.25 mg tablet 0.25 mg PO TID 02/05/24 09/08/24 buspirone 15 mg tablet 15 mg PO BID 02/06/24 09/08/24 trazodone 50 mg tablet 300 mg PO BEDTIME 08/17/24 09/08/24 Previous Rx's ?Medication ?Instructions ?Recorded oxycodone 5 mg capsule 5 mg PO Q8H PRN pain #15 caps 09/09/24 Allergies Allergy/AdvReac Type Severity Reaction Status Date / Time butorphanol Allergy Unknown Verified 05/07/25 19:41 Influenza Virus Vaccines Allergy Unknown ITCHING, Verified 05/07/25 19:41 BAD REACTION meperidine Allergy Unknown Rash Verified 05/07/25 19:41 pneumococcal vaccine Allergy Unknown Verified 05/07/25 19:41 quetiapine Allergy Unknown Verified 05/07/25 19:41 shellfish derived Allergy Unknown Verified 05/07/25 19:41 neuroleptics AdvReac Unknown PT STATES Uncoded 05/07/25 19:41 HAD REALLY BAD REACTION, UNABLE TO STATE WHAT Review of Systems Review of Systems ROS Unobtainable: All systems reviewed & are unremarkable except as noted in HPI and below Patient History Medical History Generalized weakness Small bowel obstruction Surgical History Status post laparoscopic cholecystectomy H/O thyroidectomy Family History Mother Diabetes mellitus Heart disease Father Diabetes mellitus Heart disease Brother Myocardial infarction CVA (cerebral vascular accident) Other Hypertension Social History household members: spouse alcohol intake: former Smoking Status: Former smoker alcohol intake frequency: 0-2 drinks per day Exam Narrative Exam Narrative: GENERAL: [74] year old patient appears stated age. Well-developed patient, in mild distress. HEAD: Atraumatic. Normocephalic. EYES: Pupils equal round and reactive. Extraocular motions intact. No scleral icterus. No injection or drainage. ENT: Nose without bleeding, purulent drainage. Throat without erythema, tonsillar hypertrophy or exudate. Airway patent. NECK: Trachea midline. Non tender CARDIOVASCULAR: Regular rate and rhythm without murmurs, gallops, or rubs. RESPIRATORY: Clear to auscultation. Breath sounds equal bilaterally. No wheezes, rales, or rhonchi. GASTROINTESTINAL: Abdomen soft, non-tender, nondistended. EXTREMITIES: No edema or joint tenderness. BACK: Nontender without deformity or crepitance. No flank tenderness. NEURO: AOx3. SKIN: No rash or erythema of visible areas Initial Vital Signs Initial Vital Signs: Vital Signs Temperature 98.0 F 05/07/25 19:45 Pulse Rate 68 05/07/25 19:45 Respiratory Rate 18 05/07/25 19:45 Blood Pressure 125/58 L 05/07/25 19:45 Pulse Oximetry 97 05/07/25 19:45 Oxygen Delivery Method Room Air 05/07/25 19:45 Course Orders Ordered: ED Orders 05/07/25 20:38 Complete Blood Count AUTO DIFF Stat Comprehensive Metabolic Panel Stat Lipase Stat EKG-12 Lead Stat 05/07/25 20:47 CT abdomen pelvis w con Stat 05/07/25 21:40 Urinalysis and Microscopic Stat Ondansetron HCl (Ondansetron 4 Mg/2 Ml Inj) 4 mg IV NOW PRN PRN Reason: Nausea And Vomiting Ondansetron HCl (Ondansetron 4 Mg Odt) 4 mg PO NOW PRN PRN Reason: Nausea And Vomiting Discontinued Medications Hydrocodone Bitart/Acetaminophen (Hydrocodone/Acet 5/325 Tablet) 1 tab PO NOW ONE Stop: 05/07/25 22:43 Lactated Ringer's (Lactated Ringers) 1,000 mls @ 1,000 mls/hr IV BOLUS ONE Stop: 05/07/25 21:46 Last Admin: 05/07/25 22:11 Dose: 1,000 mls/hr Vital Signs Vital signs: Vital Signs - 8 hr 05/07/25 19:45 Temperature 98.0 F Pulse Rate 68 Respiratory Rate 18 Blood Pressure 125/58 L Pulse Oximetry 97 Oxygen Delivery Method Room Air MDM - Abdominal Pain Lab Data 05/07/25 21:20 05/07/25 21:20 Labs: Lab Results 05/07/25 05/07/25 Range/Units 21:20 21:40 WBC 7.5 (4.5-11.0) X10^3/uL RBC 3.51 L (4.0-5.2) X10^6/uL Hgb 11.5 L (12.0-16.0) g/dL Hct 34.0 L (36-46) % MCV 96.8 (80-100) fL MCH 32.9 (26-34) PG MCHC 33.9 (30-36) % RDW 14.1 (11.6-14.8) % Plt Count 297 (150-400) X10^3/uL Neut % (Auto) 66.4 (50-75) % Lymph % (Auto) 24.6 L (25-40) % [place] % (Auto) 8.0 (3-14) % Eos % (Auto) 0.2 L (2-4) % Baso % (Auto) 0.8 (0-2) % Neut # (Auto) 5000 (7687-1495) /uL Lymph # (Auto) 1800 (5258-0635) /uL Franklin # (Auto) 600 (0-900) /uL Eos # (Auto) 0 (0-450) /uL Baso # (Auto) 100 (0-100) /uL Sodium 122 L (137-145) mmol/L Potassium 4.6 (3.4-5.1) mmol/L Chloride 96 L (98-107) mmol/L Carbon Dioxide 20 L (22-32) mmol/L BUN 21 H (7-17) mg/dL Creatinine 1.04 (0.52-1.04) mg/dL Estimated GFR 57 L (>60) mL/min BUN/Creatinine Ratio 20.2 (6-22) Glucose 73 (70-99) mg/dL Calcium 8.2 L (8.4-10.2) mg/dL Total Bilirubin 0.4 (0.2-1.3) mg/dL AST 25 (14-36) IU/L ALT 19 (<35) IU/L Alkaline Phosphatase 91 (38-126) U/L Total Protein 6.7 (6.3-8.2) g/dL Albumin 3.8 (3.5-5.0) g/dL Globulin 2.9 (1.7-4.1) g/dL Albumin/Globulin Ratio 1.3 (1.0-2.8) Lipase 552 H (23-300) U/L Urine Color Yellow Urine Appearance Clear Urine pH 6.5 (4.5-8.0) Ur Specific [place] 1.015 (1.000-1.035) Urine Protein Negative (Negative) Urine Glucose (UA) Negative (Negative) g/dL Urine Ketones Negative (NEGATIVE) Urine Occult Blood Negative (Negative) Urine Nitrate Negative (Negative) Urine Bilirubin Negative (NEGATIVE) Urine Urobilinogen 0.2 (0.2) E.U./dL Ur Leukocyte Esterase Negative (NEGATIVE) Urine RBC None seen (0-5/HPF) Urine WBC None seen (0-5/HPF) Ur Squamous Epith Cells 0-1 /hpf (0-5/HPF) Urine Bacteria None seen (None) Ur Culture Indicated? Cult not indicated Vol Urine Centrifuged 10ml (spun) Imaging Data CT scan - abdomen/pelvis: Radiologist's Impression: [address] [address] [address] Scan Report Signed Patient: Shikha Watkins MR#: [id number] : 1950 Acct:[id number] Age/Sex: 74 / F Date of Service: 05/07/25 Loc: ED Accession Number: [id number] Procedure: CT abdomen pelvis w con Ordering Provider: Willard Oconnor D.O. PROCEDURE: CT ABDOMEN PELVIS W CON INDICATIONS: abd pain TECHNIQUE: After the administration of intravenous contrast, axial sections acquired from the lung bases to the pubic symphysis. Coronal and sagittal reformats were performed. For radiation dose reduction, the following was used: automated exposure control, adjustment of mA and/or kV according to patient size. COMPARISON: [facility], CT, CT ABDOMEN PELVIS W CON, 04/19/2025, 20:12. FINDINGS: Image quality: Diagnostic. Lower Chest: Trace right pleural effusion. Interval is L[place] of left pleural effusion. ABDOMEN: Liver: No solid mass. Gallbladder: Surgically absent Biliary ducts: No biliary dilation. Pancreas: No ductal dilation. Spleen: Size is within normal limits. Adrenal Glands: No adrenal nodules. Kidneys and Ureters: No hydronephrosis. No solid mass. No complex renal cystic lesion which requires follow up. Stomach and Bowel: Normal colonic caliber, without significant wall thickening. Stable post colectomy changes with patent anastomosis. Compared to prior CT, there is decreased distension of small bowel. Peritoneum: No abnormal intraperitoneal fluid. No free air. Ventral Wall: No significant ventral hernia. Abdominal Nodes: No retroperitoneal or mesenteric adenopathy by size criteria. Vessels: Aorta and inferior vena cava are normal in size. PELVIS: Pelvic Organs: Unremarkable. Bladder: No bladder wall thickening, accounting for underdistention. Pelvic Nodes: No enlarged lymph nodes. Miscellaneous: Right fat containing inguinal hernia.. Bones: No aggressive osseous abnormality. Left proximal femur internal fixation. Chronic L2 compression deformity. IMPRESSION: Compared to prior CT 04/19/2025, decreased small bowel distension with stable post colectomy changes. Decreased bilateral pleural effusions. ECG Data Interpretation: Sinus humberto HR 47 HI 168 QRS [address]-t wave change Change from 01/07/25 MDM Narrative Medical decision making narrative: All lab work, vital signs, nurse triage note, medication list, previous ER visits, and all imaging studies reviewed. WBC 7.5 hemoglobin 11.5 platelets 297 sodium 122 cm 4.6 chloride 96 CO2 20 BUN 21 creatinine 1.04 glucose 73 LFTs not lipase 552, troponin <0.012. CT abdomen and pelvis showed compared to prior CT of 04/19/2025 decreased small bowel distention with stable post colectomy changes. Decreased bilateral pleural effusion. Patient given 1 L of lactated Ringer's and [place]. Differential diagnosis small-bowel obstruction radiculitis constipation pancreatitis kidney stone kidney infection pneumonia. Case d/w who has graciously accepted the patient for inpatient admission. Patient is not on a any AV nancy blocking agents for which heart rate has been in the 40s since she has been here in the ER. EKG showed sinus bradycardia Discharge Plan Departure Patient Disposition: Admitted as Observation Clinical Impression: Acute hyponatremia, Bradycardia Admit Date/Time: 05/07/25 22:49 Admit Provider: Cb Thomas
--- NOTE | 2025-05-07 20:54 | EKG_ITS ---
[place] [id number] [place] [id number] Test Date: 2025-05-07 Pat Name: Shikha Watkins Department: [facility] Room: Gender: Female [employer]: LORE : 1950 Requested By: Order Number: [id number] Reading MD: Willard Turner MD Measurements Intervals [place] Rate: 47 P: 31 SC: 168 QRS: 36 QRSD: 90 T: 44 QT: 456 QTc: 403 Interpretive Statements Sinus bradycardia with premature atrial complexes Increased R/S ratio in V1, consider early transition or posterior infarct Electronically Signed On 05-08-2025 7:40:40 PST by Willard Turner MD
[2025-05-07 21:28] LABS: Add Manual Diff / Slide Review NO; Hematocrit 34.0 % (36-46); Hemoglobin 11.5 g/dL (12.0-16.0); Lymphocytes Absolute Auto 1800 /uL (1100-4500); Mean Corpuscular HGB Conc 33.9 % (30-36); Mean Corpuscular Hemoglobin 32.9 PG (26-34); Mean Corpuscular Volume 96.8 fL (80-100); Platelet Count 297 X10^3/uL (150-400)
[2025-05-07 21:45] LABS: Alanine Aminotransferase 19 IU/L (<35); Albumin 3.8 g/dL (3.5-5.0); Albumin Globulin Ratio 1.3 (1.0-2.8); Alkaline Phosphatase 91 U/L (38-126); Blood Urea Nitrogen 21 mg/dL (7-17); Calcium 8.2 mg/dL (8.4-10.2); Carbon Dioxide 20 mmol/L (22-32); Chloride 96 mmol/L (98-107); Estimated Glomerular Filt Rate 57 mL/min (>60); Globulin 2.9 g/dL (1.7-4.1); Glucose 73 mg/dL (70-99); HEMOLYSIS 36 (0-50); Lipase 552 U/L (23-300); Potassium 4.6 mmol/L (3.4-5.1); Sodium 122 mmol/L (137-145); Total Protein 6.7 g/dL (6.3-8.2)
[2025-05-07 22:06] LABS: Appearance Urine UA CLEAR; Bilirubin Urine UA NEGATIVE (NEGATIVE); Color Urine UA YELLOW; Glucose Urine UA NEGATIVE (Negative); Ketones Urine UA NEGATIVE (NEGATIVE); Leukocyte Esterase Urine UA NEGATIVE (NEGATIVE); Nitrite Urine UA NEGATIVE (Negative); Occult Blood Urine UA NEGATIVE (Negative); Protein Urine UA NEGATIVE (Negative); Specific Gravity Urine UA 1.015 (1.000-1.035); Urobilinogen Urine UA 0.2 E.U./dL (0.2)
[2025-05-07 22:07] LABS: pH Urine UA 6.5 (4.5-8.0)
[2025-05-07] MEDS: LACTATED RINGERS 1,000 ML 1000 ML IV (22:11)
[2025-05-07 22:12] LABS: Culture Indicated Urine Cult Not Indicated
--- NOTE | 2025-05-07 22:54 | DI.ECHO.S_ITS ---
[facility] : : [address] : [place] : : [id number] : : Phone: [phone] Echocardiogram Report + + :Name: JEFFREY YIN Study Date: 05/08/2025 Height: 61 in : :[facility] ReadingLocation: Weight: 105 lb : : Gender: Female BSA: 1.4 m2 : :: 1950 Age: 74 yrs BP: 138/68 mmHg: :Reason For Study: Hyponatremia : :Ordering Physician: YANDEL, : :OBED Performed By: Flo Vieira : :Referring: OBED HUMPHRIES : + + Interpretation Summary The study quality was technically difficult. The ejection fraction is estimated to be 60-65%. Normal diastolic function. The right ventricle is normal in size and function. There is mild mitral regurgitation. Pulmonary artery pressures cannot be estimated because of the lack of a measurable TR jet velocity but the IVC suggests a CVP of around 3 mmHg. Procedure: A two-dimensional transthoracic echocardiogram with color flow and Doppler was performed. There is no prior echocardiogram noted for this patient. The study quality was technically difficult. The patient was in normal sinus rhythm during the exam. Left Ventricle: The left ventricle is normal in size. Left ventricular wall thickness is borderline increased. Left ventricular systolic function is normal. The ejection fraction is estimated to be 60-65%. There are no focal wall motion abnormalities. Normal diastolic function. Right Ventricle: The right ventricle is normal in size and function. Atria: The left atrial size is normal. Right atrial size is normal. There is no Doppler evidence for an interatrial shunt. Mitral Valve: The mitral valve leaflets appear to open well. There is no mitral valve stenosis. There is mild mitral regurgitation. Aortic Valve: The aortic valve is trileaflet. The aortic valve opens well. There is no aortic valve stenosis. There is trace aortic regurgitation. Tricuspid Valve: The tricuspid valve is not well visualized, but is grossly normal. There is mild tricuspid regurgitation. Pulmonary artery pressures cannot be estimated because of the lack of a measurable TR jet velocity but the IVC suggests a CVP of around 3 mmHg. Pulmonic Valve: The pulmonic valve is not well seen, but is grossly normal. There is trace pulmonic regurgitation. Great Vessels: The aortic root is normal size. The ascending aorta is normal in size. The aortic arch could not be visualized. The pulmonary is not well visualized. The IVC is of normal diameter and collapses greater than 50% with a sniff. This suggests a low right atrial pressure of 3 mm Hg. Pericardium/ Pleura There is no pericardial effusion. MMode/2D Measurements & Calculations LVIDd: 3.7 cm LVOT diam: 2.0 cm LVIDs: 2.6 cm Ao root diam: 3.2 cm FS: 28.8 % asc Aorta Diam: 3.0 cm IVSd: 1.1 cm LVPWd: 1.1 cm LV pfeiffer. diameter/BSA (cm/m^2): 2.6 LV sys. diameter/BSA (cm/m^2): 1.8 LA A2 area: 15.2 cm2 RA area: 7.3 cm2 LA A4 area: 15.6 cm2 IVC diam: 1.2 cm LA length (vol): 5.3 cm LA vol: 38.2 ml LA vol index: 26.6 ml/m2 RVD1 (basal): 1.6 cm RVD2 (mid): 1.3 cm TAPSE: 1.8 cm Doppler Measurements & Calculations Ao V2 max: 165.3 cm/sec LVOT Max Caleb: 137.8 cm/sec Ao V2 mean: 104.0 cm/sec LV V1 max P.6 mmHg Ao max P.9 mmHg LV V1 VTI: 26.0 cm Ao mean P.1 mmHg KYRIE(I,D): 2.3 cm2 Ao V2 VTI: 35.0 cm KYRIE(V,D): 2.6 cm2 sev ratio: 0.74 KYRIE indexed to BSA (cm^2/m^2): 1.6 AI P1/2t: 697.8 msec AI dec slope: 151.0 cm/sec2 MV E max caleb: 89.7 cm/sec TR max caleb: 254.9 cm/sec MV A max caleb: 79.8 cm/sec TR max P.0 mmHg MV E/A: 1.1 PA V2 max: 81.1 cm/sec Med Peak E' Caleb: 7.9 cm/sec PA V2 mean: 55.4 cm/sec E/E' med: 11.3 PA mean P.4 mmHg Lat Peak E' Caleb: 8.1 cm/sec PA pr(Accel): 41.7 mmHg E/E' lat: 11.1 E/e' average: 11.2 MV dec time: 0.23 sec SV(LVOT): 81.7 ml Reading Physician:11:50 AM
--- NOTE | 2025-05-07 22:56 | PC.NURSE ---
2030: Pt's heartrate dipping down in low 40's, lowest was [address] Oconnor notified.
[2025-05-07 23:14] LABS: Troponin I < 0.012 ng/mL (0.01-0.034)
[2025-05-07 23:38] LABS: Thyroid Stimulating Hormone 1.57 uIU/mL (0.47-4.68)
[2025-05-08] MEDS: SODIUM CHLORIDE 0.9% 1,000 ML 100 ML IV ×3 (00:24→18:47)
[2025-05-08] MEDS: DIVALPROEX ER 250 MG TAB 1500 MG PO ×2 (01:33→20:38)
--- NOTE | 2025-05-08 03:43 | PM.HP.1 ---
History of Present Illness History of Present Illness Chief complaint: prev bowel obst., no BM for 2days, pn under ribs Narrative: 74 years old female with history of inflammatory bowel disease including ulcerative colitis leading to total colectomy in 1992 [facility] and later on diagnosed with Crohn's disease in [address] [facility], recently discharged from [facility] after thorough workup and sent to rehab center discharged 2 days ago presented to the ER with right-sided epigastric pain, nausea and vomiting with concern of small bowel obstruction. The p patient vomited once today without any blood. Report right upper quadrant severe abdominal pain relieved by vomiting. Denies fever, shortness of breath, chest pain, hematemesis or melena. Reports recent diarrhea but did not have any bowel movements in the last 2 days which is quite unusual for her. CT of the abdomen shows compared to the prior CT of 04/19/2025 decreased small bowel distention with stable post colectomy changes. Decreased bilateral pleural effusion. Laboratory shows WBC 7.5, hemoglobin 11.5, platelets 295, sodium 122, creatinine 1.04, glucose 74, lipase 552, troponin negative, LFT normal. In the ER she was given 1 L of LR and [place]. During hospital stay she was found to be bradycardic with heart rate in 40s. EKG shows sinus bradycardia. In terms of her bradycardia and hyponatremia was decided to be admitted for observation. ON LICENSE OF [facility] Medical History Generalized weakness Small bowel obstruction Surgical History Status post laparoscopic cholecystectomy H/O thyroidectomy Family History Mother Diabetes mellitus Heart disease Father Diabetes mellitus Heart disease Brother Myocardial infarction CVA (cerebral vascular accident) Other Hypertension Social History household members: spouse Smoking Status: Former smoker alcohol intake: former Meds Home Medications and Allergies Home Medications ?Medication ?Instructions ?Recorded ?Confirmed ?Type albuterol sulfate 90 mcg/actuation 2 puff INH Q4HP PRN Bronchospasm 04/17/16 05/08/25 History aerosol inhaler (Ventolin HFA) ##0 divalproex 500 mg tablet,extended 1,500 mg PO BEDTIME ##0 04/17/16 05/08/25 History release 24 hr lamotrigine 200 mg tablet 300 mg PO BEDTIME ##0 04/17/16 05/08/25 History (Lamictal) levothyroxine 75 mcg tablet 0.075 mg PO QDAY ##0 04/17/16 05/08/25 History (Synthroid) acetaminophen 500 mg tablet 1,000 mg PO Q6HP PRN Abdominal 05/28/21 05/08/25 History (Tylenol Extra Strength) Discomfort risperidone 0.25 mg tablet 0.25 mg PO TID 02/05/24 05/08/25 History buspirone 15 mg tablet 15 mg PO BID 02/06/24 05/08/25 History trazodone 50 mg tablet 300 mg PO BEDTIME 08/17/24 05/08/25 History oxycodone 5 mg capsule 5 mg PO Q8H PRN pain #15 caps 09/09/24 05/08/25 Rx apixaban 5 mg tablet (Eliquis) 5 mg PO BID 05/08/25 05/08/25 History prednisone 10 mg tablet mg PO 05/08/25 History prednisone 5 mg tablet mg PO 05/08/25 History Allergies Allergy/AdvReac Type Severity Reaction Status Date / Time butorphanol Allergy Unknown Verified 05/07/25 19:41 Influenza Virus Vaccines Allergy Unknown ITCHING, Verified 05/07/25 19:41 BAD REACTION meperidine Allergy Unknown Rash Verified 05/07/25 19:41 pneumococcal vaccine Allergy Unknown Verified 05/07/25 19:41 quetiapine Allergy Unknown Verified 05/07/25 19:41 shellfish derived Allergy Unknown Verified 05/07/25 19:41 neuroleptics AdvReac Unknown PT STATES Uncoded 05/07/25 19:41 HAD REALLY BAD REACTION, UNABLE TO STATE WHAT Review of Systems Review of Systems ROS: Yes All systems reviewed with the patient and are negative except as otherwise documented Constitutional Constitutional: Reports as per HPI and Reports system reviewed and no additional complaints, except as documented Eyes Eyes: Reports as per HPI and Reports system reviewed and no additional complaints, except as documented ENT Ears, Nose, Mouth, and Throat: Yes as per HPI and Yes system reviewed and no additional complaints, except as documented Cardiovascular Cardiovascular: Reports system reviewed and no additional complaints, except as documented Respiratory Respiratory: Reports system reviewed and no additional complaints, except as documented Gastrointestinal Gastrointestinal: Reports system reviewed and no additional complaints, except as documented Genitourinary Genitourinary: Reports system reviewed and no additional complaints, except as documented Musculoskeletal Musculoskeletal: Reports system reviewed and no additional complaints, except as documented, Reports abnormal gait and Reports numbness Neurologic Neurologic: Reports system reviewed and no additional complaints, except as documented, Reports abnormal gait, Reports confusion and Reports numbness Psychiatric Psychiatric: Reports system reviewed and no additional complaints, except as documented and Reports confusion Exam Vital Signs (past 8 hours): - 05/07/25 19:45 05/07/25 20:08 05/07/25 20:10 Temperature 98.0 F Pulse Rate 68 54 L Respiratory Rate 18 Blood Pressure 125/58 L 122/58 L Pulse Oximetry 97 Oxygen Delivery Method Room Air 05/07/25 20:10 05/07/25 20:30 05/07/25 20:30 Temperature Pulse Rate 55 L 43 L Respiratory Rate Blood Pressure 110/57 L Pulse Oximetry 99 98 Oxygen Delivery Method Room Air Room Air 05/07/25 21:00 05/07/25 22:15 05/07/25 22:21 Temperature Pulse Rate 47 L 45 L Respiratory Rate Blood Pressure 135/63 Pulse Oximetry 98 99 Oxygen Delivery Method Room Air 05/07/25 22:21 05/07/25 22:30 05/07/25 22:30 Temperature Pulse Rate 44 L 53 L Respiratory Rate Blood Pressure 138/68 Pulse Oximetry 100 97 Oxygen Delivery Method Room Air Room Air Oxygen Delivery Method Room Air Const General: cooperative, comfortable and well developed Orientation: alert and oriented x3 HENMT Head: normal to inspection, normocephalic and atraumatic Face and sinus: normal facial exam Mouth: oral mucosae normal and moist mucous membranes Throat: posterior oropharynx normal Eyes General: appearance normal, both eyes and all related structures Pupils: PERRL EOM: EOM intact bilaterally Neck Neck: normal visual inspection and full ROM Chest Chest: normal inspection of the chest Resp Effort & Inspection: normal respiratory effort and able to speak in complete sentences Auscultation: clear to auscultation bilaterally Cardio Palpation: normal PMI Rate: regular rate Rhythm: regular rhythm Heart Sounds: S1 normal and S2 normal GI Inspection: normal to inspection Palpation: soft and no hepatosplenomegaly Auscultation: normal bowel sounds Skin General: no rashes or lesions noted Lesions: no lesions Rashes: no rashes Trauma: no lacerations or abrasions Neuro General: patient alert, patient awake, patient oriented x3 and no focal motor deficits Cranial Nerves: CN's II-XI intact bilaterally Cognition: normal cognition Speech: speech normal Gait: normal gait Motor: muscle tone normal throughout Sensory Exam: no sensory deficits noted Extrem General: full ROM and no calf tenderness Psych Appearance: grossly normal Mental Status: mental status grossly normal Speech and Movement: speech and movement normal Objective Labs 05/07/25 21:20 05/07/25 21:20 Labs: Laboratory Results - last 24 hr 05/07/25 05/07/25 21:20 21:40 WBC 7.5 RBC 3.51 L Hgb 11.5 L Hct 34.0 L MCV 96.8 MCH 32.9 MCHC 33.9 RDW 14.1 Plt Count 297 Neut % (Auto) 66.4 Lymph % (Auto) 24.6 L [place] % (Auto) 8.0 Eos % (Auto) 0.2 L Baso % (Auto) 0.8 Neut # (Auto) 5000 Lymph # (Auto) 1800 [place] # (Auto) 600 Eos # (Auto) 0 Baso # (Auto) 100 Sodium 122 L Potassium 4.6 Chloride 96 L Carbon Dioxide 20 L BUN 21 H Creatinine 1.04 Estimated GFR 57 L BUN/Creatinine Ratio 20.2 Glucose 73 Calcium 8.2 L Total Bilirubin 0.4 AST 25 ALT 19 Alkaline Phosphatase 91 Troponin I < 0.012 Total Protein 6.7 Albumin 3.8 Globulin 2.9 Albumin/Globulin Ratio 1.3 Lipase 552 H TSH 1.57 Urine Color Yellow Urine Appearance Clear Urine pH 6.5 Ur Specific [place] 1.015 Urine Protein Negative Urine Glucose (UA) Negative Urine Ketones Negative Urine Occult Blood Negative Urine Nitrate Negative Urine Bilirubin Negative Urine Urobilinogen 0.2 Ur Leukocyte Esterase Negative Urine RBC None seen Urine WBC None seen Ur Squamous Epith Cells 0-1 /hpf Urine Bacteria None seen Ur Culture Indicated? Cult not indicated Vol Urine Centrifuged 10ml (spun) Assessment & Plan Assessment & Plan narrative: Hypoosmolar hyponatremia in a euvolemic state. Sodium 122. Baseline over 130. -gently hydrate patient and check patient's sodium -check TSH, lipid panel, urine sodium and urine/serum osmolality -Limits patient's sodium rise to 8 mEq in 24 hours. - Echo Bradycardia with unclear etiology. Patient denies any chest pain. Troponin negative. -Telemetry, -Reduce opioid use -Consider pharmacy consult for review of home medications causing bradycardia -Check TSH and troponin -Echo -EKG in the morning COPD. Restart albuterol as needed Hypothyroidism. Restart levothyroxine and check TSH. Bipolar disorder. Restart Depakote, Lamictal, buspirone, risperidone and trazodone. I performed this consultation using real-time telehealth tools, including a live video connection between my location and the patient's location. As the provider for this telehealth service, I attest that I introduced myself to the patient, provided my credentials, disclosed my location, and determined that, based on a review of the patients chart and/or a discussion with members of the patient's treatment team, telemedicine via a real-time, two-way, interactive audio and video platform is an appropriate and effective means of providing this service. The patient and I mutually agree that this visit is appropriate for telemedicine as well. Disclaimer Note: To increase efficiency, your provider may have prepared this document using voice recognition technology. In that case, if a word or phrase is confusing, or does not make sense, this is likely due to a recognition error within the program which was not discovered during the provider?s review. If you believe an error has occurred, please notify your provider?s office at your earliest convenience, so we can correct any mistakes. Time-Based Coding :: 55 min spent with patient and on the chart (including review of chart, obtaining history, exam, reviewing outside data, placing orders, documenting exam and treatment plan, and counseling patient) on 05/08/2025. Quality VTE Deep Vein Thrombosis/Pulmonary Embolism Present on Admission: No MIPS - Admit I confirm the patient?s Advance Care Plan is present, Code status is documented, Surrogate decision maker is in patient?s record [If Yes, STOP here]: Yes MIPS - Meds 'Current medications' to include all prescriptions, [id number] products, herbals, cannabis/cannabidiol products, and vitamin/mineral/dietary (nutritional) supplements. I have utilized all available resources to obtain, update, or review the patient?s current medications. [If Yes, STOP here]: Yes
[2025-05-08] MEDS: LEVOTHYROXINE 75 MCG TABLET PO (04:56)
[2025-05-08 06:44] LABS: Add Manual Diff / Slide Review NO; Hematocrit 32.6 % (36-46); Hemoglobin 11.1 g/dL (12.0-16.0); Lymphocytes Absolute Auto 1800 /uL (1100-4500); Mean Corpuscular HGB Conc 34.2 % (30-36); Mean Corpuscular Hemoglobin 32.9 PG (26-34); Mean Corpuscular Volume 96.4 fL (80-100); Platelet Count 258 X10^3/uL (150-400)
[2025-05-08 07:00] LABS: Alanine Aminotransferase 20 IU/L (<35); Albumin 3.3 g/dL (3.5-5.0); Albumin Globulin Ratio 1.2 (1.0-2.8); Alkaline Phosphatase 99 U/L (38-126); Blood Urea Nitrogen 15 mg/dL (7-17); Calcium 8.3 mg/dL (8.4-10.2); Carbon Dioxide 22 mmol/L (22-32); Chloride 103 mmol/L (98-107); Estimated Glomerular Filt Rate > 60 mL/min (>60); Globulin 2.7 g/dL (1.7-4.1); Glucose 89 mg/dL (70-99); HEMOLYSIS < 15 (0-50); Magnesium 1.7 mg/dL (1.6-2.3); Potassium 3.7 mmol/L (3.4-5.1); Sodium 130 mmol/L (137-145); Total Protein 6.0 g/dL (6.3-8.2)
[2025-05-08 07:50] VITALS: BP 136/66; PULSE 61; TEMP 36.2; O2SAT 99
--- NOTE | 2025-05-08 09:29 | PC.NURSE ---
PATIENT'S HOME MEDICATIONS GIVEN TO MICHELLE, PHARMACIST AT 0924 TO BE PLACED IN SAFE.
--- NOTE | 2025-05-08 10:31 | DIET.CONS ---
Dietary Consultation Note Admission Date: 05/07/2025 22:49 Assessment: 74 y F admitted for hyponatremia. Dietitian screened for low MNA score. Met with pt at bedside. Previous hx of severe malnutrition back in August. Pt also reports in recent hospitalization (before d/c to ) was also dx with malnutrition. Has gained 10# since August. But reports horrible food at and not eating very much, around 75% or less of usual amount. Has not eaten since Monday. Feeling nauseated. Is trying lunch. NFPE with no findings in temples, buccal and orbital fat pads. Ht: 152.4 cm Wt: 47.627 kg BMI: 20.5 UBW: hx of ubw being 120#, pt wanting to get to 110# now (BMI 21.5), +10# since last admission Last BM: 05/05/25 (05/07/25 23:04) MNA: 7 Sean Score: 16 Diet: 05/07/25 20:38 NPO Diet Diet Modifications: NPO Type: NPO except for Meds 05/08/25 Breakfast Heart Healthy Diet Diet Modifications: Labs: RBC 3.39 X10^6/uL (4.0-5.2) L 05/08/25 06:35 Hgb 11.1 g/dL (12.0-16.0) L 05/08/25 06:35 Hct 32.6 % (36-46) L 05/08/25 06:35 Creatinine 0.85 mg/dL (0.52-1.04) 05/08/25 06:35 Nutrition Diagnosis: Inadequate oral intake r/t reduced appetite and unappealing food at rehab aeb pt reports no intake since Monday, <75% of EER during rehab stay Interventions: -Will monitor PO intakes and consider protein supplementation as needed, pt not interested in Ensures at this time EER: 1440 kcals (30 kcals/kg per BMI) 50 g protein (1g/kg w/ hx of IBD, PCM, CKD3 Monitoring/Evaluations: f/u on po tolerance Electronically Signed by: Mela Lara 05/08/25 10:31 Clinical Dietitian [address] [id number]
[2025-05-08 12:00] VITALS: BP 127/69; PULSE 64; RESP 17; TEMP 36.5; O2SAT 97
[2025-05-08] MEDS: MAGNESIUM CHLORIDE 64 MG TABLET 128 MG PO (12:04)
[2025-05-08] MEDS: methylPREDNISolone succ 125 MG/2 ML VIAL IV (12:04)
--- NOTE | 2025-05-08 12:17 | PC.NURSE ---
1125 SAL ROUNDED ON PATIENT AND DISCUSSED PLAN OF CARE WITH HER AND . NEW ORDERS ADDED IN CHART. STATES HE IS OKAY WITH CLEAR LIQUID DIET AT THIS TIME.
--- NOTE | 2025-05-08 13:35 | PM.HP.1 ---
History of Present Illness History of Present Illness Date Patient Seen: 05/08/25 Chief complaint: prev bowel obst., no BM for 2days, pn under ribs Narrative: Chief complaint: Abdominal distention discomfort unable to eat or maintain hydration with liquids setting of recent Crohn's exacerbation while undergoing taper off of prednisone History of present illness: 05/08: 74-year-old female with extensive history of remote ulcerative colitis status post total colectomy followed by diagnosis of Crohn's disease. Was treated at a tertiary care center for flare of Crohn's disease and was on a steroid taper. As the dose decreased from 20 mg to 10 mg patient started having progressive symptoms of distention tenesmus and decreased appetite. Patient tapered the dose down further to 5 mg per instructions and she became unable to eat severely distended and came to the emergency room for evaluation. Findings in the emergency department: CT of the abdomen and pelvis showing extensive small-bowel distention with gas but no appreciable stool burden Sodium 122 creatinine is 1 lipase is 552 Hemogram in the remainder of the comprehensive metabolic is unremarkable Past medical history: Colectomy 1992 for ulcerative colitis Crohn's disease 2023 [facility] Multiple abdominal surgeries for adhesions History cholecystectomy History of thyroidectomy Review of systems: No fever or chills rigors No chest pain palpitations shortness for breath No paresthesia paresis No urinary Physical examination: Very pleasant elderly female HEENT unremarkable Heart rate and rhythm regular lungs clear Abdomen with hyperactive bowel sounds Markedly distended but nontender Extremities no edema Neuro nonfocal Assessment and plan: Except for a small bowel dilation with gas without a discernible transition point to suggest obstruction although this is possible, but favor exacerbation of Crohn's disease Solu-Medrol IV Clear liquids with isotonic Monitor if there is response to the above treatment Chronic medical conditions: Colectomy 1992 for ulcerative colitis Crohn's disease 2023 [facility] Multiple abdominal surgeries for adhesions History cholecystectomy History of thyroidectomy DVT prophylaxis: Not indicated patient is ambulatory Code status: Full code blue Disposition: Observation anticipate 1-2 days Time based billing 55 minutes were involved in evaluation of this patient including [id number] evaluation physical examination of the patient review of extensive records discussion with the patient and and care team [facility] Medical History Generalized weakness Small bowel obstruction Surgical History Status post laparoscopic cholecystectomy H/O thyroidectomy Family History Mother Diabetes mellitus Heart disease Father Diabetes mellitus Heart disease Brother Myocardial infarction CVA (cerebral vascular accident) Other Hypertension Social History household members: spouse Smoking Status: Former smoker alcohol intake: former Meds Home Medications and Allergies Home Medications ?Medication ?Instructions ?Recorded ?Confirmed ?Type albuterol sulfate 90 mcg/actuation 2 puff INH Q4HP PRN Bronchospasm 04/17/16 05/08/25 History aerosol inhaler (Ventolin HFA) ##0 divalproex 500 mg tablet,extended 1,500 mg PO BEDTIME ##0 04/17/16 05/08/25 History release 24 hr lamotrigine 200 mg tablet 300 mg PO BEDTIME ##0 04/17/16 05/08/25 History (Lamictal) levothyroxine 75 mcg tablet 0.075 mg PO QDAY ##0 04/17/16 05/08/25 History (Synthroid) acetaminophen 500 mg tablet 1,000 mg PO Q6HP PRN Abdominal 05/28/21 05/08/25 History (Tylenol Extra Strength) Discomfort risperidone 0.25 mg tablet 0.25 mg PO TID 02/05/24 05/08/25 History buspirone 15 mg tablet 15 mg PO BID 02/06/24 05/08/25 History trazodone 50 mg tablet 300 mg PO BEDTIME 08/17/24 05/08/25 History oxycodone 5 mg capsule 5 mg PO Q8H PRN pain #15 caps 09/09/24 05/08/25 Rx amlodipine 5 mg tablet 5 mg PO DAILY 05/08/25 05/08/25 History apixaban 5 mg tablet (Eliquis) 5 mg PO BID 05/08/25 05/08/25 History montelukast 10 mg tablet 10 mg PO DAILY 05/08/25 05/08/25 History prednisone 10 mg tablet mg PO 05/08/25 History prednisone 5 mg tablet mg PO 05/08/25 History Allergies Allergy/AdvReac Type Severity Reaction Status Date / Time butorphanol Allergy Unknown Verified 05/07/25 19:41 Influenza Virus Vaccines Allergy Unknown ITCHING, Verified 05/07/25 19:41 BAD REACTION meperidine Allergy Unknown Rash Verified 05/07/25 19:41 pneumococcal vaccine Allergy Unknown Verified 05/07/25 19:41 quetiapine Allergy Unknown Verified 05/07/25 19:41 shellfish derived Allergy Unknown Verified 05/07/25 19:41 neuroleptics AdvReac Unknown PT STATES Uncoded 05/07/25 19:41 HAD REALLY BAD REACTION, UNABLE TO STATE WHAT Exam Vital Signs (past 8 hours): - 05/08/25 07:45 05/08/25 07:50 05/08/25 12:00 Temperature 97.1 F L 97.7 F Pulse Rate 61 64 Respiratory Rate 17 Blood Pressure 136/66 127/69 Pulse Oximetry 99 97 Oxygen Delivery Method Room Air Oxygen Flow Rate 0 0 Oxygen Delivery Method Room Air Oxygen Flow Rate 0 Objective Labs 05/08/25 06:35 05/08/25 06:35 Labs: Laboratory Results - last 24 hr 05/07/25 05/07/25 05/08/25 21:20 21:40 06:35 WBC 7.5 5.5 RBC 3.51 L 3.39 L Hgb 11.5 L 11.1 L Hct 34.0 L 32.6 L MCV 96.8 96.4 MCH 32.9 32.9 MCHC 33.9 34.2 RDW 14.1 13.7 Plt Count 297 258 Neut % (Auto) 66.4 54.0 Lymph % (Auto) 24.6 L 32.4 [place] % (Auto) 8.0 11.9 Eos % (Auto) 0.2 L 1.3 L Baso % (Auto) 0.8 0.4 Neut # (Auto) 5000 3000 Lymph # (Auto) 1800 1800 [place] # (Auto) 600 700 Eos # (Auto) 0 100 Baso # (Auto) 100 0 Sodium 122 L 130 L Potassium 4.6 3.7 Chloride 96 L 103 Carbon Dioxide 20 L 22 BUN 21 H 15 Creatinine 1.04 0.85 Estimated GFR 57 L > 60 BUN/Creatinine Ratio 20.2 17.6 Glucose 73 89 Calcium 8.2 L 8.3 L Magnesium 1.7 Total Bilirubin 0.4 0.3 AST 25 28 ALT 19 20 Alkaline Phosphatase 91 99 Troponin I < 0.012 Total Protein 6.7 6.0 L Albumin 3.8 3.3 L Globulin 2.9 2.7 Albumin/Globulin Ratio 1.3 1.2 Lipase 552 H TSH 1.57 Urine Color Yellow Urine Appearance Clear Urine pH 6.5 Ur Specific [place] 1.015 Urine Protein Negative Urine Glucose (UA) Negative Urine Ketones Negative Urine Occult Blood Negative Urine Nitrate Negative Urine Bilirubin Negative Urine Urobilinogen 0.2 Ur Leukocyte Esterase Negative Urine RBC None seen Urine WBC None seen Ur Squamous Epith Cells 0-1 /hpf Urine Bacteria None seen Ur Culture Indicated? Cult not indicated Vol Urine Centrifuged 10ml (spun) Assessment & Plan Time-Based Coding :: [TOTAL MINUTES] spent with patient and on the chart (including review of chart, obtaining history, exam, reviewing outside data, placing orders, documenting exam and treatment plan, and counseling patient) on [DATE]. Quality VTE Deep Vein Thrombosis/Pulmonary Embolism Present on Admission: No
--- NOTE | 2025-05-08 14:05 | OT.IP.EVAL ---
Past Medical History (Last Reviewed 09/09/24 @ 17:24 by Yonas Solo MD) Generalized weakness Small bowel obstruction Surgical History (Last Reviewed 09/09/24 @ 17:24 by Yonas Solo MD) H/O thyroidectomy Status post laparoscopic cholecystectomy Occupational Therapy Inpatient Evaluation/Re-Eval M1 OT IP Prior Functional Status Start: 05/08/25 14:13 Freq: Status: Active Protocol: Document 05/08/25 13:15 [facility] (Rec: 05/08/25 14:40 [facility] Desktop) Medical Review Prior Functional Status Communication I Mobility and Gait Pt states uses her SPC but also has a 4ww that she can use. Activities of Daily Pt able to do all ADL's except for socks and shoes in Living and IADL's which her assists her prior to going to work.Pt is now present during showering needs due to recent fall. Pt has a neighbor down the street and which she uses to assist with cleaning/chores/and shopping 3x/week. Prior Functional Pt has one fall on Monday and another fall weeks ago. Level (Other details Pt has history of left hip, back and pelvis fx. ) Social History Household Members spouse Living Arrangements House Number of Floors ( Two Floors Floors) Number of Stairs To Pt has a stair lift to get to the main floor from the Enter/Railing? garage. Home Environment Standard Height Toilet,Walk in Shower Home Equipment Front Wheel Walker,Four Wheel Walker,Straight Cane, Bedside Commode,Shower Seat with Backrest,Hand Held Shower,Grab Bars In Shower M2 OT-IP Current Condition Start: 05/08/25 14:13 Freq: Status: Active Protocol: Document 05/08/25 13:15 [facility] (Rec: 05/08/25 14:40 [facility] Desktop) Occupational Therapy Current Condition Current Condition Evaluation Date 05/08/25 Treatment Diagnosis small bowel obstruction, generalized weakness Diagnosis Onset Date 05/07/25 M3 OT- IP Subjective and Pain Start: 05/08/25 14:13 Freq: Status: Active Protocol: Document 05/08/25 13:15 [facility] (Rec: 05/08/25 14:40 [facility] Desktop) OT- Subjective Occupational Therapy Visit Type Type Initial Evaluation Visit Start Time 13:15 Visit Stop Time 14:05 Occupational Therapy Visit Comments Patient Comments Pt agreed to get up to us the bathroom and to walk to hallways. Patient/Caregiver To get better. Goals OT Pain Assessment Pain When Pain Assessed At Rest Pain Present Pain Present Pain Reported Location Right Ribs Intensity 6 Scale Used Numeric (0 - 10) M4 OT- IP ADL's Start: 05/08/25 14:13 Freq: Status: Active Protocol: Document 05/08/25 13:15 [facility] (Rec: 05/08/25 14:40 [facility] Desktop) OT [id number] Comments OT Self-Feeding Pt on clear liquid diet now. Comments OT ADL-Grooming General Evaluation Grooming Ability Independent Areas Needing Retrieving/Set-up of Grooming Items Assistance Comments OT Grooming Comments Able to do while standing at the sink with FWW in of her. OT ADL-Oral Care General Eval Oral Care Ability Independent Comments Oral Care Comments Able to do while standing. OT ADL-Dressing General Eval Upper Body Dressing Moderate Assistance Ability Lower Body Dressing Total Assistance Ability Areas Needing Shoes Assistance Comments OT Dressing Comments Assist to help get her arms into her jacket. Assist to put on and tie her shoes. Pt states usually has her to assist as has not been able to use LB dressing equipment with any success. OT ADL-Toileting General Evaluation Toileting Ability Standby Assistance OT ADL-Bathing Comments OT Bathing Comments TO try tomorrow during OT session with pt. M5 OT- IP IADL's Start: 05/08/25 14:13 Freq: Status: Active Protocol: Document 05/08/25 13:15 [facility] (Rec: 05/08/25 14:40 [facility] Desktop) OT-Instrumental Activities of Daily Living Home Safety Awareness Awareness of Need Good Awareness for Assistance at Home Ability to Problem Able to Problem Solve Solve Emergency Situations Meal Preparation Meal Preparation Caregiver Provides Assist Fish Filleter Fish Filleter Caregiver Provides Assist M6 OT- IP Functional Cognition Start: 05/08/25 14:13 Freq: Status: Active Protocol: Document 05/08/25 13:15 [facility] (Rec: 05/08/25 14:40 [facility] Desktop) Cognitive Factors Limiting Selfcare Function Cognitive Ability Level of Alertness Alert Patient Orientation Name,Age,Birthday,Month,Date,Year,Day of Week,Place, Situation Attention Span Capable of Focused Attention,Capable of Sustained Ability Attention Ability to Follow Able to Follow One Step Commands Commands Cognitive Comments Cognitive Assessment Pt able to follow commands for ADL and mobility needs. Comments Pt needing cues to push up from the bed versus hold the FWW when coming to stand. OT- Vision and Hearing OT- Hearing Assessment OT- Hearing Hearing Impaired Assessment OT- Vision Assessment Visual Acuity Glasses All The Time Visual Attentiveness WFL Occular Pursuits WFL Vision Assessment Pt able to read the clock accurately. Comments M7 OT- IP Mobility and Balance Start: 05/08/25 14:13 Freq: Status: Active Protocol: Document 05/08/25 13:15 [facility] (Rec: 05/08/25 14:40 [facility] Desktop) OT- Bed Mobility Assessment Supine to Sit Supine to Sit Assist Moderate Assistance,Bedrails Sit to Supine Sit to Supine Assist Contact Guard Assistance,Bedrails OT-Transfer Assessment Sit to and From Stand Sit to and from Contact Guard Assistance Stand Transfers Transfer Ability Standby Assistance Technique Transfer Destination Bed,Chair,Toilet Transfer Technique Stand Step Pivot Devices Transfer Assistive Gait Belt,Front Wheeled Walker Devices Comments Mobility Comments Pt on RA and initially 87% and after some time and deep breaths up to 93-97%. Pt tends to do shallow breathing due to right rib pain. OT- Balance Assessment Sitting Balance and Reactions Static Sitting Good Balance Ability Dynamic Sitting Good Balance Ability Standing Balance and Reactions Static Standing Fair Balance Ability Dynamic Standing Fair Balance Ability Comments Other Balance Tests/ Pt tends to lean to the right while walking with the Deviations/Treatment FWW. The FWW also veers to the right as she tires. Also : pt tend to go step two gait pattern as well and needing cues to take alternating steps with her feet. M8 OT- IP Objective Assessments Start: 05/08/25 14:13 Freq: Status: Active Protocol: Document 05/08/25 13:15 [facility] (Rec: 05/08/25 14:40 [facility] Desktop) OT Gross Range of Motion Upper Extremity Range of Motion ROM Impairments Decreased at end ROM OT Strength Comments Strength Comments BUE right shoulder 3+/5, elbow 4-/5 to hand 4/5 left shoulder 4-/5 elbow and hand 4/5 M9 OT- IP Assessment and Plan Start: 05/08/25 14:13 Freq: Status: Active Protocol: Document 05/08/25 13:15 [facility] (Rec: 05/08/25 14:40 [facility] Desktop) OT Summary Assessment and Plan Potential Rehabilitation Good Potential Analytic Complexity Moderate at Evaluation Summary OT Impairments Pain,Range of Motion,Strength,Balance,Functional Mobility,Grooming,Dressing,Toileting,Bathing,Toilet Transfers,Shower Transfers,Activity Tolerance Progress Towards Progressing Toward Goals,Slow Progress due to Medical Goals Issues Assessment Summary Pt MOD complexity and main barriers are pain, decreased dynamic balance and activity tolerance. Pt has had two falls in the past two week and will benefit from skilled rehab prior to going home. Goals Self-Feeding Goal Independent Grooming Goal Independent Dressing Goal Moderate Assistance Toileting Goal Independent Bathing Goal Standby Assistance Toilet Transfer Goal Independent Shower Transfer Goal Independent Days to Meet Goals 7 Frequency of Treatment Other frequency 5x/week Treatment Plan Other Treatment Shower, show and practice LB dressing if pt agreeable Recommendations and . Next Treatment Focus Discharge Recommendations OT Discharge SNF Rehab Recommendations Transportation Needs Private Vehicle,Wheelchair/Cabulance at Discharge
[2025-05-08] MEDS: ONDANSETRON 4 MG/2 ML INJ IV (14:17)
--- NOTE | 2025-05-08 15:16 | CM.DANOTE ---
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 MANAGER PEDIATRIC reviewed EMR. per chart pt appealed dc last admission august 2023. hx of and [facility]. per provider, anticipate dc Sat vs Monday for IV steroids. per OT rec SNF. PT still pending. MANAGER PEDIATRIC met with pt in room. lives at home with spouse, has a CG 3 days/week for 2 hours at a time. helps with housekeeping/meals/shopping. had a fall at home. uses walker normally. not interested in returning to . hopeful for [facility] if they have beds. active with [facility]. MANAGER PEDIATRIC updated [facility] on pts admission. MANAGER PEDIATRIC sent ref to [facility]. [facility] have beds. likely can accept? CM team confirm acceptance with [facility] Monday. MANAGER PEDIATRIC Completed PASRR. behind FS. P: ideally dc to [facility] Sat vs Sun. continue to follow closely for DCP Coordination SRIDHAR Duong Discharge Planning/Care Management CM Discharge Assessment Start: 05/07/25 23:04 Freq: Status: Active Protocol: Document 05/08/25 15:12 (Rec: 05/08/25 15:16 [id number]) Discharge Planning Assessment Assigned Discharge SRIDHAR Sahni [employer] Analyst Provider Judy Davison Insurance Medicare Insurance Comment [employer] secondary DPOA/Assigned Willard spouse Designee Name Contact Information [phone] Advance Directives? Yes: Yes; POLST Advance Directives Yes on File History Provided By Patient,Significant Other,Medical Record Prior Living House Arrangements Household Members spouse Independent with ADL Yes 's Is patient alert and Yes oriented? Needs Assistance Meal Prep,Home Chores / Shopping With DME Already Rented / FWW / Walker Owned Patient/Family Alf Facility Preference Comment Does not want to go back to [facility] interested in [facility] Discharge Plan Alf Facility Transportation spouse vs facility Arrangement Referrals Initiated Alf,Home Health Additional Comment [facility]ume [facility] vs dc to [facility] SNF If patient plan is No home with home health: Has signed face to face form been completed? If patient plan is Yes SNF: Has PASSR been completed? SNF/HH Preference [facility] resumption Whiteboard Updated Yes in Patient Room with name and ext. # of Phlebotomy Manager Review Status In Process Please Provide Date 05/08/25 Initial DC Assessment Was Performed Next Review Type Continued Stay Review
[2025-05-08 16:00] VITALS: BP 137/80; PULSE 64; RESP 19; TEMP 36.2; O2SAT 96
[2025-05-08 19:47] VITALS: BP 121/64; PULSE 58; RESP 18; TEMP 36.5; O2SAT 96
[2025-05-08] MEDS: APIXABAN 5 MG TABLET PO (20:38)
[2025-05-08] MEDS: MELATONIN 3 MG TABLET 9 MG PO (20:39)
[2025-05-09] VITALS (8 sets, daily range): BP systolic 114–142; BP diastolic 55–65; PULSE 61–78; RESP 17–20; TEMP 35.9–36.9; O2SAT 92–100
[2025-05-09] MEDS: LEVOTHYROXINE 75 MCG TABLET PO (06:25)
--- NOTE | 2025-05-09 07:14 | CM.DPC ---
Addendum entered by Natalie Coles RN 05/09/25 14:45: [facility], the next available day for Admission is Monday05/12/2025. Original Note: OT Eval sent to [facility]. Acceptance and Auth pending.
[2025-05-09] MEDS: SODIUM CHLORIDE 0.9% 1,000 ML 100 ML IV ×2 (08:55→23:36)
[2025-05-09] MEDS: APIXABAN 5 MG TABLET PO ×2 (09:03→21:11)
--- NOTE | 2025-05-09 13:33 | DIET.PN1 ---
Dietary Progress Note Assessment: Met with pt. Has eaten portion of egg salad off sandwich. Reports having a little appetite but still experiencing some abd pain. Continue to encourage protein-based foods. ONS offered as desired, pt declined again. Continuing to monitor po intakes. Ht: 152.4 cm Wt: 47.627 kg BMI: 20.5 UBW: Last BM: 05/09/25 (05/09/25 13:31) MNA: 7 Sean Score: 20 Diet: 05/09/25 Lunch General (Regular) Diet Diet Modifications: Food Texture: Level 7 - Regular Liquid Consistency: Level 0 - Thin Nutrition Percent Meal Consumed 35 05/09/25 13:00 Percent Meal Consumed 50% 05/08/25 18:00 Labs: RBC 3.39 X10^6/uL (4.0-5.2) L 05/08/25 06:35 Hgb 11.1 g/dL (12.0-16.0) L 05/08/25 06:35 Hct 32.6 % (36-46) L 05/08/25 06:35 Creatinine 0.85 mg/dL (0.52-1.04) 05/08/25 06:35 Electronically Signed by: Mela Lara 05/09/25 13:33 Clinical Dietitian [address] [address]
--- NOTE | 2025-05-09 14:03 | OT.IP.TRT ---
Current Diagnoses Hypo-osmolality and hyponatremia (05/09/25) Occupational Therapy Treatment Note M2 OT-IP Current Condition Start: 05/08/25 14:13 Freq: Status: Active Protocol: Document 05/08/25 13:15 [facility] (Rec: 05/08/25 14:40 [facility] Desktop) Occupational Therapy Current Condition Current Condition Evaluation Date 05/08/25 Treatment Diagnosis small bowel obstruction, generalized weakness Diagnosis Onset Date 05/07/25 M3 OT- IP Subjective and Pain Start: 05/08/25 14:13 Freq: Status: Active Protocol: Document 05/09/25 13:50 [facility] (Rec: 05/09/25 14:03 [facility] OT- Subjective Occupational Therapy Visit Type Type Treatment Note Visit Start Time 13:23 Visit Stop Time 13:47 Occupational Therapy Visit Comments Patient Comments Pt was in the bathroom on entrance of OT. Pt was agreeable to participating in OT. Patient/Caregiver To get better. Goals OT Pain Assessment Pain When Pain Assessed At Rest Pain Present Pain Present Pain Reported Location Right Ribs Intensity 6 Scale Used Numeric (0 - 10) M4 OT- IP ADL's Start: 05/08/25 14:13 Freq: Status: Active Protocol: Document 05/09/25 13:50 [facility] (Rec: 05/09/25 14:03 [facility] Desktop) OT [id number] Comments OT Self-Feeding not observed Comments OT ADL-Grooming General Evaluation Grooming Ability Independent Comments OT Grooming Comments Pt washes her hands sink side with I. OT ADL-Oral Care Comments Oral Care Comments not observed OT ADL-Dressing General Eval Lower Body Dressing Moderate Assistance,Total Assistance Ability Areas Needing Socks Assistance Comments OT Dressing Comments OT educated pt on use of LB AE for dressing, specifically banbury machine operator and sock aid. Pt declined education for pants and agreed only to learn for socks. Pt reports she often has her assist with socks and shoes. Pt attempted to doff B socks using the banbury machine operator, but was unable to successfully do this due to her R rib pain. OT doffed B socks for pt. Pt used the sock aid to don socks. Pt needed mod A to get the sock correctly on the sock aid. Pt had a difficult time following verbal commands for this (following demonstration) and required tactile assist. Once the sock was on the sock aid, pt required min A to use it to don socks. This was attempted x2 with same level of assist. Pt would benefit from review of these techniques. OT ADL-Toileting General Evaluation Toileting Ability Standby Assistance Comments OT Toileting Pt able to manage clothing and hygiene. Comments OT ADL-Bathing Comments OT Bathing Comments pt had already performed with nsg, attempted at next OT tx if able. M5 OT- IP IADL's Start: 05/08/25 14:13 Freq: Status: Active Protocol: Document 05/08/25 13:15 [facility] (Rec: 05/08/25 14:40 [facility] Desktop) OT-Instrumental Activities of Daily Living Home Safety Awareness Awareness of Need Good Awareness for Assistance at Home Ability to Problem Able to Problem Solve Solve Emergency Situations Meal Preparation Meal Preparation Caregiver Provides Assist Farm Equipment Operator Farm Equipment Operator Caregiver Provides Assist M6 OT- IP Functional Cognition Start: 05/08/25 14:13 Freq: Status: Active Protocol: Document 05/08/25 13:15 [facility] (Rec: 05/08/25 14:40 [facility] Desktop) Cognitive Factors Limiting Selfcare Function Cognitive Ability Level of Alertness Alert Patient Orientation Name,Age,Birthday,Month,Date,Year,Day of Week,Place, Situation Attention Span Capable of Focused Attention,Capable of Sustained Ability Attention Ability to Follow Able to Follow One Step Commands Commands Cognitive Comments Cognitive Assessment Pt able to follow commands for ADL and mobility needs. Comments Pt needing cues to push up from the bed versus hold the FWW when coming to stand. OT- Vision and Hearing OT- Hearing Assessment OT- Hearing Hearing Impaired Assessment OT- Vision Assessment Visual Acuity Glasses All The Time Visual Attentiveness WFL Occular Pursuits WFL Vision Assessment Pt able to read the clock accurately. Comments M7 OT- IP Mobility and Balance Start: 05/08/25 14:13 Freq: Status: Active Protocol: Document 05/09/25 13:50 [facility] (Rec: 05/09/25 14:03 [facility] Desktop) OT- Bed Mobility Assessment Sit to Supine Sit to Supine Assist Standby Assistance,Head of Bed Elevated,Bedrails OT-Transfer Assessment Sit to and From Stand Sit to and from Standby Assistance Stand Transfers Transfer Ability Standby Assistance Technique Transfer Destination Bed,Chair,Toilet Devices Transfer Assistive Gait Belt,Front Wheeled Walker Devices OT- Balance Assessment Sitting Balance and Reactions Static Sitting Good Balance Ability Dynamic Sitting Good Balance Ability Standing Balance and Reactions Static Standing Fair Balance Ability Dynamic Standing Fair Balance Ability M8 OT- IP Objective Assessments Start: 05/08/25 14:13 Freq: Status: Active Protocol: Document 05/08/25 13:15 [facility] (Rec: 05/08/25 14:40 [facility] Desktop) OT Gross Range of Motion Upper Extremity Range of Motion ROM Impairments Decreased at end ROM OT Strength Comments Strength Comments BUE right shoulder 3+/5, elbow 4-/5 to hand 4/5 left shoulder 4-/5 elbow and hand 4/5 M9 OT- IP Assessment and Plan Start: 05/08/25 14:13 Freq: Status: Active Protocol: Document 05/09/25 13:50 [facility] (Rec: 05/09/25 14:03 [facility] Desktop) OT Summary Assessment and Plan Potential Rehabilitation Good Potential Analytic Complexity Moderate at Evaluation Summary OT Impairments Pain,Range of Motion,Strength,Balance,Functional Mobility,Grooming,Dressing,Toileting,Bathing,Toilet Transfers,Shower Transfers,Activity Tolerance Progress Towards Progressing Toward Goals,Slow Progress due to Medical Goals Issues Assessment Summary Pt had concern of blood when wiping after BM, Dr. Solo was present and made note of the blood and discussed plan with pt. Pt performed toileting with SBA and sink side hand washing with I. Pt tfed to chair to work on LB dressing. OT educated pt on use of LB AE for socks (pt declined for pants) as pt reports she has to have her assist with her socks and shoes. Pt was unable to successfully use the banbury machine operator to doff her socks due to R rib pain requiring TOTAL A to doff. Pt required MODA overall to use the sock aid and don socks. Pt would benefit from continued review of LB AE for dressing for improved I and safety. Pt has had 2 falls in the past 2 weeks and would continue to benefit from SNF prior to return home. Pt left reclined in bed with all needs met and in reach. Cont per POC. Goals Self-Feeding Goal Independent Grooming Goal Independent Dressing Goal Moderate Assistance Toileting Goal Independent Bathing Goal Standby Assistance Toilet Transfer Goal Independent Shower Transfer Goal Independent Days to Meet Goals 7 Frequency of Treatment Other frequency 5x/week Treatment Plan Other Treatment Shower, review and practice LB dressing if pt agreeable Recommendations and . Next Treatment Focus Discharge Recommendations Transportation Needs Private Vehicle,Wheelchair/Cabulance at Discharge
--- NOTE | 2025-05-09 14:21 | PT-IP ANOTE ---
Attempted evaluation. Pt is getting a test and is not available at this time. Will check back later.
--- NOTE | 2025-05-09 14:23 | OT.IP.TRT ---
Current Diagnoses Hypo-osmolality and hyponatremia (05/09/25) Occupational Therapy Treatment Note M2 OT-IP Current Condition Start: 05/08/25 14:13 Freq: Status: Active Protocol: Document 05/08/25 13:15 [facility] (Rec: 05/08/25 14:40 [facility] Desktop) Occupational Therapy Current Condition Current Condition Evaluation Date 05/08/25 Treatment Diagnosis small bowel obstruction, generalized weakness Diagnosis Onset Date 05/07/25 M3 OT- IP Subjective and Pain Start: 05/08/25 14:13 Freq: Status: Active Protocol: Document 05/09/25 13:50 JORDAN (Rec: 05/09/25 14:03 [facility] OT- Subjective Occupational Therapy Visit Type Type Treatment Note Visit Start Time 13:23 Visit Stop Time 13:47 Occupational Therapy Visit Comments Patient Comments Pt was in the bathroom on entrance of OT. Pt was agreeable to participating in OT. Patient/Caregiver To get better. Goals OT Pain Assessment Pain When Pain Assessed At Rest Pain Present Pain Present Pain Reported Location Right Ribs Intensity 6 Scale Used Numeric (0 - 10) M4 OT- IP ADL's Start: 05/08/25 14:13 Freq: Status: Active Protocol: Document 05/09/25 13:50 JORDAN (Rec: 05/09/25 14:03 [facility] Desktop) OT [id number] Comments OT Self-Feeding not observed Comments OT ADL-Grooming General Evaluation Grooming Ability Independent Comments OT Grooming Comments Pt washes her hands sink side with I. OT ADL-Oral Care Comments Oral Care Comments not observed OT ADL-Dressing General Eval Lower Body Dressing Moderate Assistance,Total Assistance Ability Areas Needing Socks Assistance Comments OT Dressing Comments OT educated pt on use of LB AE for dressing, specifically transit planning director and sock aid. Pt declined education for pants and agreed only to learn for socks. Pt reports she often has her assist with socks and shoes. Pt attempted to doff B socks using the transit planning director, but was unable to successfully do this due to her R rib pain. OT doffed B socks for pt. Pt used the sock aid to don socks. Pt needed mod A to get the sock correctly on the sock aid. Pt had a difficult time following verbal commands for this (following demonstration) and required tactile assist. Once the sock was on the sock aid, pt required min A to use it to don socks. This was attempted x2 with same level of assist. Pt would benefit from review of these techniques. OT ADL-Toileting General Evaluation Toileting Ability Standby Assistance Comments OT Toileting Pt able to manage clothing and hygiene. Comments OT ADL-Bathing Comments OT Bathing Comments pt had already performed with nsg, attempted at next OT tx if able. M5 OT- IP IADL's Start: 05/08/25 14:13 Freq: Status: Active Protocol: Document 05/08/25 13:15 [facility] (Rec: 05/08/25 14:40 [facility] Desktop) OT-Instrumental Activities of Daily Living Home Safety Awareness Awareness of Need Good Awareness for Assistance at Home Ability to Problem Able to Problem Solve Solve Emergency Situations Meal Preparation Meal Preparation Caregiver Provides Assist Research Archaeologist Research Archaeologist Caregiver Provides Assist M6 OT- IP Functional Cognition Start: 05/08/25 14:13 Freq: Status: Active Protocol: Document 05/09/25 13:15 JORDAN (Rec: 05/09/25 14:21 JORDAN Desktop) Cognitive Factors Limiting Selfcare Function Cognitive Ability Level of Alertness Alert Patient Orientation Name,Age,Birthday,Month,Date,Year,Day of Week,Place, Situation Attention Span Capable of Focused Attention,Capable of Sustained Ability Attention Ability to Follow Able to Follow One Step Commands Commands Cognitive Comments Cognitive Assessment After OT demonstrated use of sock aid and presented Comments sock aid and sock to pt, pt placed her sock inside of the sock aid. OT reminded pt that she was supposed to thread the sock on the tube of the sock aid, to which she stated oh yeah and then began placing her sock on the tube inside out. OT had to initiate placing the sock on the tube and then pt was able to pull it on with heavy cues. Pt may benefit from further cognitive assessment. M7 OT- IP Mobility and Balance Start: 05/08/25 14:13 Freq: Status: Active Protocol: Document 05/09/25 13:50 JORDAN (Rec: 05/09/25 14:03 [facility] Desktop) OT- Bed Mobility Assessment Sit to Supine Sit to Supine Assist Standby Assistance,Head of Bed Elevated,Bedrails OT-Transfer Assessment Sit to and From Stand Sit to and from Standby Assistance Stand Transfers Transfer Ability Standby Assistance Technique Transfer Destination Bed,Chair,Toilet Devices Transfer Assistive Gait Belt,Front Wheeled Walker Devices OT- Balance Assessment Sitting Balance and Reactions Static Sitting Good Balance Ability Dynamic Sitting Good Balance Ability Standing Balance and Reactions Static Standing Fair Balance Ability Dynamic Standing Fair Balance Ability M8 OT- IP Objective Assessments Start: 05/08/25 14:13 Freq: Status: Active Protocol: Document 05/08/25 13:15 [facility] (Rec: 05/08/25 14:40 [facility] Desktop) OT Gross Range of Motion Upper Extremity Range of Motion ROM Impairments Decreased at end ROM OT Strength Comments Strength Comments BUE right shoulder 3+/5, elbow 4-/5 to hand 4/5 left shoulder 4-/5 elbow and hand 4/5 M9 OT- IP Assessment and Plan Start: 05/08/25 14:13 Freq: Status: Active Protocol: Document 05/09/25 13:50 [facility] (Rec: 05/09/25 14:03 [facility] Desktop) OT Summary Assessment and Plan Potential Rehabilitation Good Potential Analytic Complexity Moderate at Evaluation Summary OT Impairments Pain,Range of Motion,Strength,Balance,Functional Mobility,Grooming,Dressing,Toileting,Bathing,Toilet Transfers,Shower Transfers,Activity Tolerance Progress Towards Progressing Toward Goals,Slow Progress due to Medical Goals Issues Assessment Summary Pt had concern of blood when wiping after BM, Dr. Solo was present and made note of the blood and discussed plan with pt. Pt performed toileting with SBA and sink side hand washing with I. Pt tfed to chair to work on LB dressing. OT educated pt on use of LB AE for socks (pt declined for pants) as pt reports she has to have her assist with her socks and shoes. Pt was unable to successfully use the transit planning director to doff her socks due to R rib pain requiring TOTAL A to doff. Pt required MODA overall to use the sock aid and don socks. Pt would benefit from continued review of LB AE for dressing for improved I and safety. Pt had significant difficulty using the AE correctly after OT education, pt may benefit from additional cognitive assessment. Pt has had 2 falls in the past 2 weeks and would continue to benefit from SNF prior to return home. Pt left reclined in bed with all needs met and in reach. Cont per POC. Goals Self-Feeding Goal Independent Grooming Goal Independent Dressing Goal Moderate Assistance Toileting Goal Independent Bathing Goal Standby Assistance Toilet Transfer Goal Independent Shower Transfer Goal Independent Days to Meet Goals 7 Frequency of Treatment Other frequency 5x/week Treatment Plan Other Treatment Shower, review and practice LB dressing if pt agreeable Recommendations and . Next Treatment Focus Discharge Recommendations Transportation Needs Private Vehicle,Wheelchair/Cabulance at Discharge
[2025-05-09] MEDS: ONDANSETRON 4 MG/2 ML INJ IV (14:40)
[2025-05-09] MEDS: methylPREDNISolone succ 40 MG/ML VIAL IV (14:41)
--- NOTE | 2025-05-09 15:33 | P.PN_ITS ---
Subjective <Maru Canela - Last Filed: 05/09/25 15:35> Subjective Date Patient Seen: 05/09/25 Time Patient Seen: 15:33 Interval history: Interval Events: 05/08 (Feng): 74-year-old female with extensive history of remote ulcerative colitis status post total colectomy followed by diagnosis of Crohn's disease. Was treated at a tertiary care center for flare of Crohn's disease and was on a steroid taper. As the dose decreased from 20 mg to 10 mg patient started having progressive symptoms of distention tenesmus and decreased appetite. Patient tapered the dose down further to 5 mg per instructions and she became unable to eat severely distended and came to the emergency room for evaluation. ? Findings in the emergency department: CT of the abdomen and pelvis showing extensive small-bowel distention with gas but no appreciable stool burden Sodium 122 creatinine is 1 lipase is 552 Hemogram in the remainder of the comprehensive metabolic is unremarkable ? 05/09 (Edil): She reports she's not sleeping well since admission. She's in the same amount of abdominal pain today and says it feels like she broke her right lower ribs when she breathes. She's itchy and feels her IV is uncomfortable. This most recent flare of her Crohn's started in August but worsened significantly in March, lasting until now. Two weeks ago she had a fall that she reports was caused by dehydration dizziness. She had another fall on Monday for the same reason. She was staying at [facility] for rehab but says she only made it a few days before [she] couldn't stand it and left due to a situation with a broken toilet, among other concerns. She did have a small bowel movement this morning and would like to advance her diet from clears to regular as tolerated. During her second bowel movement today, she noticed some small spots of bright red rectal bleeding on toilet paper. Physical Exam: GEN: Alert and oriented X4. No acute distress. Fluent speech. RESP: CTAB, no wheezes, rales, or rhonchi. Normal work of breathing. CV: RRR, no murmur or gallop. ABD: Bowel sounds hyperactive. Tender to palpation in all quadrants, most tender RUQ, abdomen distended, no palpable masses. EXT: No edema, clubbing or cyanosis. Peripheral pulses intact. Mild erythema and pain to palpation of distal left great toe. NEURO: No focal neurologic deficits, CN II-XII grossly intact. PSYCH: Cooperative, appropriate mood and affect. ? A/P: 74-year-old female with complex IBD history including remote UC status post total colectomy (1992) and recent Crohn's disease diagnosis (2023) presenting with recurrent small bowel obstruction symptoms. Patient has hyperactive bowel sounds, abdominal distention, and 2-day absence of bowel movements following steroid taper from 10mg to 5mg prednisone. CT shows decreased small bowel distention compared to prior, suggesting partial resolution. Concurrent hyponatremia and sinus bradycardia require monitoring. ? #Small Bowel Obstruction, resolving Clinical presentation consistent with partial small bowel obstruction in setting of known Crohn's disease. The majority of SBOs will resolve without operation. CT imaging shows improvement from prior study, suggesting conservative management may be successful. -Repeat abdominal X-ray to assess for progression or resolution -NPO with nasogastric decompression if symptoms worsen -IV fluid resuscitation with normal saline -Serial laboratory monitoring including CBC and CMP -Advance diet as tolerated ? #Crohn's Disease Flare, resolving Recent flare precipitated by steroid taper, with symptoms worsening as prednisone decreased from 20mg to 5mg daily. Up to a quarter of patients with Crohn's disease will develop at least one small bowel stricture. -Consider CRP to assess disease activity -If diarrhea recurs, stool studies including C. difficile, as patients with IBD have higher carriage rates -Resume higher dose corticosteroids (methylprednisolone 40 mg IV q12 hours) for acute management -Transition to maintenance immunosuppressive therapy once acute episode resolves ? # Hyponatremia, resolving Sodium improved from 122 to 130 mEq/L with IV fluid administration. -Daily BMP to monitor sodium correction -Assess volume status and urine osmolality if sodium fails to normalize -Continue normal saline IV fluids with careful monitoring ? #Elevated Lipase, stable Lipase 552 U/L (normal <300) without clinical signs of pancreatitis. Elevated lipase levels can occur in many non-pancreatic conditions including small bowel obstruction. -Monitor for signs and symptoms of pancreatitis -Repeat lipase in AM -Supportive care with IV fluids -NPO if symptoms worsen ? DVT Prophylaxis: -SCDs ? Code Status: -Full code <Yonas Solo MD - Last Filed: 05/09/25 16:26> Subjective Interval history: Interval Events: 05/08 (Snedeker): 74-year-old female with extensive history of remote ulcerative colitis status post total colectomy followed by diagnosis of Crohn's disease. Was treated at a tertiary care center for flare of Crohn's disease and was on a steroid taper. As the dose decreased from 20 mg to 10 mg patient started having progressive symptoms of distention tenesmus and decreased appetite. Patient tapered the dose down further to 5 mg per instructions and she became unable to eat severely distended and came to the emergency room for evaluation. ? Findings in the emergency department: CT of the abdomen and pelvis showing extensive small-bowel distention with gas but no appreciable stool burden Sodium 122 creatinine is 1 lipase is 552 Hemogram in the remainder of the comprehensive metabolic is unremarkable ? 05/09 (Edil): She reports she's not sleeping well since admission. She's in the same amount of abdominal pain today and says it feels like she broke her right lower ribs when she breathes. She's itchy and feels her IV is uncomfortable. This most recent flare of her Crohn's started in August but worsened significantly in March, lasting until now. Two weeks ago she had a fall that she reports was caused by dehydration dizziness. She had another fall on Monday for the same reason. She was staying at [facility] for rehab but says she only made it a few days before [she] couldn't stand it and left due to a situation with a broken toilet, among other concerns. She did have a small bowel movement this morning and would like to advance her diet from clears to regular as tolerated. During her second bowel movement today, she noticed some small spots of bright red rectal bleeding on toilet paper. Physical Exam: GEN: Alert and oriented X4. No acute distress. Fluent speech. RESP: CTAB, no wheezes, rales, or rhonchi. Normal work of breathing. CV: RRR, no murmur or gallop. ABD: Bowel sounds hyperactive. Tender to palpation in all quadrants, most tender RUQ, abdomen distended, no palpable masses. EXT: No edema, clubbing or cyanosis. Peripheral pulses intact. Mild erythema and pain to palpation of distal left great toe. NEURO: No focal neurologic deficits, CN II-XII grossly intact. PSYCH: Cooperative, appropriate mood and affect. ? A/P: 74-year-old female with complex IBD history including remote UC status post total colectomy (1992) and recent Crohn's disease diagnosis (2023) presenting with recurrent small bowel obstruction symptoms. Patient has hyperactive bowel sounds, abdominal distention, and 2-day absence of bowel movements following steroid taper from 10mg to 5mg prednisone. CT shows decreased small bowel distention compared to prior, suggesting partial resolution. Concurrent hyponatremia and sinus bradycardia require monitoring. ? #Small Bowel Obstruction, resolving Clinical presentation consistent with partial small bowel obstruction in setting of known Crohn's disease. The majority of SBOs will resolve without operation. CT imaging shows improvement from prior study, suggesting conservative management may be successful. -Repeat abdominal X-ray to assess for progression or resolution -NPO with nasogastric decompression if symptoms worsen -IV fluid resuscitation with normal saline -Serial laboratory monitoring including CBC and CMP -Advance diet as tolerated ? #Crohn's Disease Flare, resolving Recent flare precipitated by steroid taper, with symptoms worsening as prednisone decreased from 20mg to 5mg daily. Up to a quarter of patients with Crohn's disease will develop at least one small bowel stricture. -Consider CRP to assess disease activity -If diarrhea recurs, stool studies including C. difficile, as patients with IBD have higher carriage rates -Resume higher dose corticosteroids (methylprednisolone 40 mg IV q12 hours) for acute management -Transition to maintenance immunosuppressive therapy once acute episode resolves ? # Hyponatremia, resolving Sodium improved from 122 to 130 mEq/L with IV fluid administration. -Daily BMP to monitor sodium correction -Assess volume status and urine osmolality if sodium fails to normalize -Continue normal saline IV fluids with careful monitoring ? #Elevated Lipase, stable Lipase 552 U/L (normal <300) without clinical signs of pancreatitis. Elevated lipase levels can occur in many non-pancreatic conditions including small bowel obstruction. -Monitor for signs and symptoms of pancreatitis -Repeat lipase in AM -Supportive care with IV fluids -NPO if symptoms worsen ? DVT Prophylaxis: -SCDs ? Code Status: -Full code Agree with all above (Eugenio Solo) Monitor HH & rectal bleeding. Monitor stools. Exam <Maru Canela - Last Filed: 05/09/25 15:35> Vital Signs (past 8 hours): - 05/09/25 08:00 05/09/25 12:00 Temperature 97.4 F L 97.7 F Pulse Rate 62 62 Respiratory Rate 17 18 Blood Pressure 131/59 L 132/65 Pulse Oximetry 100 98 Oxygen Delivery Method Room Air Oxygen Flow Rate 0 Objective <Maru Canela - Last Filed: 05/09/25 15:35> Labs 05/09/25 15:28 05/09/25 15:28 PFSH <Maru Canela - Last Filed: 05/09/25 15:35> Medical History Generalized weakness Small bowel obstruction Surgical History Status post laparoscopic cholecystectomy H/O thyroidectomy Family History Mother Diabetes mellitus Heart disease Father Diabetes mellitus Heart disease Brother Myocardial infarction CVA (cerebral vascular accident) Other Hypertension Social History household members: spouse Smoking Status: Former smoker alcohol intake: former Assessment & Plan <Maru Canela - Last Filed: 05/09/25 15:35> Time-Based Coding :: [TOTAL MINUTES] spent with patient and on the chart (including review of chart, obtaining history, exam, reviewing outside data, placing orders, documenting exam and treatment plan, and counseling patient) on [DATE]. Quality <Maru Canela - Last Filed: 05/09/25 15:35> VTE Deep Vein Thrombosis/Pulmonary Embolism Present on Admission: No
[2025-05-09 15:37] LABS: Add Manual Diff / Slide Review NO; Hematocrit 32.7 % (36-46); Hemoglobin 11.2 g/dL (12.0-16.0); Lymphocytes Absolute Auto 1400 /uL (1100-4500); Mean Corpuscular HGB Conc 34.1 % (30-36); Mean Corpuscular Hemoglobin 33.3 PG (26-34); Mean Corpuscular Volume 97.6 fL (80-100); Platelet Count 234 X10^3/uL (150-400)
[2025-05-09 16:02] LABS: Alanine Aminotransferase 31 IU/L (<35); Albumin 3.5 g/dL (3.5-5.0); Albumin Globulin Ratio 1.3 (1.0-2.8); Alkaline Phosphatase 155 U/L (38-126); Blood Urea Nitrogen 4 mg/dL (7-17); Calcium 8.3 mg/dL (8.4-10.2); Carbon Dioxide 23 mmol/L (22-32); Chloride 100 mmol/L (98-107); Estimated Glomerular Filt Rate > 60 mL/min (>60); Globulin 2.6 g/dL (1.7-4.1); Glucose 77 mg/dL (70-99); Magnesium 1.8 mg/dL (1.6-2.3); Sodium 130 mmol/L (137-145); Total Protein 6.1 g/dL (6.3-8.2)
[2025-05-09 16:04] LABS: HEMOLYSIS 70 (0-50); Potassium 3.4 mmol/L (3.4-5.1)
--- NOTE | 2025-05-09 16:15 | PT.IIE ---
Current Diagnoses Hypo-osmolality and hyponatremia (05/09/25) Surgical History (Last Reviewed 09/09/24 @ 17:24 by Yonas Solo MD) H/O thyroidectomy Status post laparoscopic cholecystectomy Medical History (Last Reviewed 09/09/24 @ 17:24 by Yonas Solo MD) Generalized weakness Small bowel obstruction Physical Therapy Inpatient Evaluation/Re-Eval M1 PT IP Prior Functional Status Start: 05/09/25 16:18 Freq: NEEDED Status: Active Protocol: Document 05/09/25 16:15 DLM (Rec: 05/09/25 16:49 DLM Desktop) Medical Review Prior Functional Status Medical History Yes Reviewed Diet/Fluid Regular Consistency Communication WFL, glasses Mobility and Gait Pt states uses her SPC or the walker. She reports her shoulder pain limits her use of the cane. Activities of Daily Pt able to do all ADL's except for socks and shoes in Living and IADL's which her assists her prior to going to work. Pt has a neighbor down the street and which she uses to assist with cleaning/chores/and shopping 3x/week. Pt SBA and showers together with her . Prior Functional Pt has one fall on Monday and another fall weeks ago. Level (Other details Pt has history of left hip, back and pelvis fx. ) Social History Household Members spouse Living Arrangements House Number of Floors ( One Floor Floors) Number of Stairs To stair lift to get to main level from garage Enter/Railing? 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 She was not happy with her recent stay at [facility] and does not want to go back. M2 PT-IP Current Condition Start: 05/09/25 16:18 Freq: NEEDED Status: Active Protocol: Document 05/09/25 16:15 DLM (Rec: 05/09/25 16:49 DLM Desktop) Physical Therapy Current Condition Current Condition Evaluation Date 05/09/25 Treatment Diagnosis abdominal pain, impaired gait Onset Date 05/07/25 M3 PT-IP Subjective Start: 05/09/25 16:18 Freq: NEEDED Status: Active Protocol: Document 05/09/25 16:15 DLM (Rec: 05/09/25 16:49 DLM Desktop) Subjective Physical Therapy Visit Type Type Treatment Note Visit Start Time 15:40 Visit Stop Time 16:15 Notes 35 min Number of [employer] Visits 0 Physical Therapy Visit Comments Patient Comments She is having more pain this afternoon in her abdomen. She wants to walk today. Patient Goals Get better Therapy Pain Assessment Location Abdomen Intensity 8 Scale Used Numeric (0 - 10) Description Aching,Tender Pain Management Re-positioning Techniques M4 PT-IP Mobility and Gait Start: 05/09/25 16:18 Freq: NEEDED Status: Active Protocol: Document 05/09/25 16:15 DLM (Rec: 05/09/25 16:49 DLM Desktop) PT-Bed Mobility Assessment Rolling Type of Rolling Roll to Left Level of Assist Independent Supine to Sit Supine to Sit Independent,Bedrails Scooting Scooting to Edge of Independent Bed PT-Transfer Assessment Sit to and From Stand Sit to and from Standby Assistance,Use of Upper Extremities Stand Equipment Transfer Assistive Gait Belt,Front Wheeled Walker Device Transfers Transfer Destination Chair,Toilet Transfer Technique Stand Step Pivot Transfer Ability Level of Assist Standby Assistance,Use of Upper Extremities Comments Mobility Comments pt up to toilet this visit before gait. Pt left up in recliner per her request, feet elevated, needs close and call button on lap. Pt instructed to have nursing staff assist with gait. Gait Assessment Gait Gait Assistance Standby Assistance Required: Distance (Feet) 260 Assistive Devices Assistive Device Gait Belt,Front Wheeled Walker Factors Limiting Gait Function Factors Limiting Pain Gait Function Comments Gait Comments she demonstrates safe use of FWW, no light-headedness reported this visit Stair Climbing Assessment Comments Stair Climbing she reports using stair lift at home due to hx of falls Comments PT-Balance Assessment Sitting Balance and Reactions Static Sitting Normal Balance Ability Dynamic Sitting Normal Balance Ability Standing Balance and Reactions Static Standing Good Balance Ability Dynamic Standing Good Balance Ability Device Used FWW M5 PT-IP Objective Assessments Start: 05/09/25 16:18 Freq: NEEDED Status: Active Protocol: Document 05/09/25 16:15 DLM (Rec: 05/09/25 16:49 DLM Desktop) Orientation Orientation/Cognition Level of Alertness Alert Orientation Name,Age,Birthday,Month,Date,Year,Day of Week,Place, Situation Language Function No Deficits Noted Ability Safety Awareness Understands Safety Issues Memory Description No Deficits Noted Comments glasses on Gross Range of Motion Upper Extremity ROM Assessment Within Functional Limits Impairments she describes pain in right shoulder Lower Extremity ROM Assessment Within Functional Limits Strength Lower Extremity Strength Assessment Left Impaired Hip flex 4-/5 Comments Strength Comments she reports chronic left hip pain after JOSE and femur fx Coordination Assessment Gross Coordination Gross Coordination WNL Sensation Assessment Sensation Gross Sensation WNL Comments Sensation Comments she denies any numbness/tingling Muscle Tone Muscle Tone WNL Yes M6 PT-IP Treatment Start: 05/09/25 16:18 Freq: NEEDED Status: Active Protocol: Document 05/09/25 16:15 DLM (Rec: 05/09/25 16:49 DLM Desktop) Physical Therapy Treatment Exercises Exercises Ankle Pumps,Gluteal Sets,Heel Slides Education Education Provided Safety Other Treatments Other Treatment pt asked about doing bridging and LE bicycle in the air Performed exercises- asked her to hold on these exercises due to abdominal pain M7 PT-IP Assessment and Plan Start: 05/09/25 16:18 Freq: NEEDED Status: Active Protocol: Document 05/09/25 16:15 DLM (Rec: 05/09/25 16:49 DLM Desktop) PT Summary Assessment and Plan Potential Rehabilitation Good Potential Status of Condition Evolving at Evaluation Summary Impairments Pain,Strength,Transfers,Gait,Activity Tolerance Assessment Summary Shikha is alert and resting in bed this visit with her cloths on. She describes ongoing abdominal pain today. New IV placed in left upper arm today. Pt was able to get up to toilet and then ambulate in the corrigan this visit. She tolerated gait in the corrigan with the FWW well today. No light-headedness reported. No shortness of breath noted. Pt left sitting up in the recliner. She was recently discharge home from SNF rehab on Monday and had not started home health PT. Recommend discharge home with assist from her neighbor and Spouse and home health services. Goals Bed Mobility Goal Independent Transfer Goal Independent,Cane,Front Wheeled Walker Gait Goal Independent,Cane,Front Wheel Walker Gait Distance 300 feet Frequency of Treatment Frequency Of Once a Day Treatment Treatment Plan Physical Therapy Bed Mobility Training,Transfer Training,Gait Training, Treatment Plan Therapeutic Exercise,Balance Retraining,Discharge Planning,Neuromuscular Re-ed Other manage abdominal pain Recommendations and Next Treatment Focus Precautions Other Precautions hx of falls with injury Recommendations To Nursing Amount of Assist Standby Assistance Needed Discharge Recommendations PT Discharge Home with Assistance,Home Health Recommendations Other Discharge she has a neighbor who comes over to help Recommendations Transportation Needs Private Vehicle at Discharge - PT assist 1
[2025-05-09] MEDS: DIVALPROEX ER 250 MG TAB 1500 MG PO (21:09)
[2025-05-10 03:00] VITALS: BP 132/75; PULSE 69; RESP 18; TEMP 36.4; O2SAT 96
[2025-05-10] MEDS: LEVOTHYROXINE 75 MCG TABLET PO (06:53)
--- NOTE | 2025-05-10 07:30 | P.PN_ITS ---
Subjective Subjective Interval history: S: She feels a lot better today, she would 1 bowel movement yesterday. Her abdomen remains distended and she was right upper quadrant tenderness. O: VSS. NAD, alert and oriented. Fluent speech. Lungs are clear, normal rate and effort. Heart is regular, no murmur gallop or rub. Abdomen is soft, non distended. Extremities are free of edema. A/P: #Small Bowel Obstruction, resolving -1 dose of lactulose today and monitor bowels. ? #Crohn's Disease Flare, resolving Recent flare precipitated by steroid taper, with symptoms worsening as prednisone decreased from 20mg to 5mg daily. Up to a quarter of patients with Crohn's disease will develop at least one small bowel stricture. -convert IV to oral corticosteroids with prednisone at 40 daily. ? # Hyponatremia, resolving -Sodium improved from 122 to 130 mEq/L with IV fluid administration. -Monitor. ? #Elevated Lipase, stable Lipase 552 U/L (normal <300) without clinical signs of pancreatitis. Elevated lipase levels can occur in many non-pancreatic conditions including small bowel obstruction. -Monitor for signs and symptoms of pancreatitis -Repeat lipase in AM= 566. MOE: Anticipate discharge in 1-2 days. ? DVT Prophylaxis: -SCDs ? Code Status: -Full code Exam Vital Signs (past 8 hours): - 05/10/25 03:00 Temperature 97.6 F Pulse Rate 69 Respiratory Rate 18 Blood Pressure 132/75 Pulse Oximetry 96 Oxygen Flow Rate 0 Oxygen Delivery Method Room Air Oxygen Flow Rate 0 Objective Labs 05/10/25 07:03 05/10/25 07:03 Labs: Laboratory Results - last 24 hr 05/09/25 15:28 WBC 5.3 RBC 3.36 L Hgb 11.2 L Hct 32.7 L MCV 97.6 MCH 33.3 MCHC 34.1 RDW 13.7 Plt Count 234 Neut % (Auto) 63.9 Lymph % (Auto) 25.8 [place] % (Auto) 9.2 Eos % (Auto) 0.8 L Baso % (Auto) 0.3 Neut # (Auto) 3400 Lymph # (Auto) 1400 [place] # (Auto) 500 Eos # (Auto) 0 Baso # (Auto) 0 Sodium 130 L Potassium 3.4 Chloride 100 Carbon Dioxide 23 BUN 4 L Creatinine 0.67 Estimated GFR > 60 BUN/Creatinine Ratio 6.0 Glucose 77 Calcium 8.3 L Magnesium 1.8 Total Bilirubin 0.5 AST 67 H ALT 31 Alkaline Phosphatase 155 H D Total Protein 6.1 L Albumin 3.5 Globulin 2.6 Albumin/Globulin Ratio 1.3 PFSH Medical History Generalized weakness Small bowel obstruction Surgical History Status post laparoscopic cholecystectomy H/O thyroidectomy Family History Mother Diabetes mellitus Heart disease Father Diabetes mellitus Heart disease Brother Myocardial infarction CVA (cerebral vascular accident) Other Hypertension Social History household members: spouse Smoking Status: Former smoker alcohol intake: former Assessment & Plan Time-Based Coding :: [TOTAL MINUTES] spent with patient and on the chart (including review of chart, obtaining history, exam, reviewing outside data, placing orders, documenting exam and treatment plan, and counseling patient) on [DATE]. Quality VTE Deep Vein Thrombosis/Pulmonary Embolism Present on Admission: No
--- NOTE | 2025-05-10 07:38 | CM.DPC ---
FRANKIE Smith sent to [facility].
[2025-05-10 07:45] LABS: Add Manual Diff / Slide Review NO; Hematocrit 28.1 % (36-46); Hemoglobin 9.8 g/dL (12.0-16.0); Lymphocytes Absolute Auto 1500 /uL (1100-4500); Mean Corpuscular HGB Conc 34.9 % (30-36); Mean Corpuscular Hemoglobin 33.8 PG (26-34); Mean Corpuscular Volume 96.8 fL (80-100); Platelet Count 208 X10^3/uL (150-400)
[2025-05-10 08:00] VITALS: BP 130/50; PULSE 65; RESP 16; TEMP 35.7; O2SAT 97
[2025-05-10 08:08] LABS: Alanine Aminotransferase 25 IU/L (<35); Albumin 2.9 g/dL (3.5-5.0); Albumin Globulin Ratio 1.2 (1.0-2.8); Alkaline Phosphatase 124 U/L (38-126); Blood Urea Nitrogen 7 mg/dL (7-17); Calcium 7.9 mg/dL (8.4-10.2); Carbon Dioxide 26 mmol/L (22-32); Chloride 103 mmol/L (98-107); Estimated Glomerular Filt Rate > 60 mL/min (>60); Globulin 2.4 g/dL (1.7-4.1); Glucose 75 mg/dL (70-99); HEMOLYSIS < 15 (0-50); Lipase 566 U/L (23-300); Magnesium 1.7 mg/dL (1.6-2.3); Potassium 3.8 mmol/L (3.4-5.1); Sodium 133 mmol/L (137-145); Total Protein 5.3 g/dL (6.3-8.2)
[2025-05-10] MEDS: SODIUM CHLORIDE 0.9% 1,000 ML 100 ML IV ×2 (09:05→22:02)
[2025-05-10] MEDS: POTASSIUM CHLORIDE 20 MEQ TAB 40 MEQ PO (09:08)
[2025-05-10] MEDS: APIXABAN 5 MG TABLET PO ×2 (09:09→20:52)
[2025-05-10] MEDS: methylPREDNISolone succ 40 MG/ML VIAL IV (10:36)
--- NOTE | 2025-05-10 11:43 | PT.IPTN ---
Current Diagnoses Hypo-osmolality and hyponatremia (05/09/25) Physical Therapy Treatment Note M2 PT-IP Current Condition Start: 05/09/25 16:18 Freq: NEEDED Status: Active Protocol: Document 05/09/25 16:15 DLM (Rec: 05/09/25 16:49 DLM Desktop) Physical Therapy Current Condition Current Condition Evaluation Date 05/09/25 Treatment Diagnosis abdominal pain, impaired gait Onset Date 05/07/25 M3 PT-IP Subjective Start: 05/09/25 16:18 Freq: NEEDED Status: Active Protocol: Document 05/10/25 11:43 DLM (Rec: 05/10/25 12:10 DLM Desktop) Subjective Physical Therapy Visit Type Type Treatment Note Visit Start Time 11:10 Visit Stop Time 11:43 Notes 33 min 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 Patient Goals Discharge home Therapy Pain Assessment Pain When Pain Assessed After Treatment Pain Present Pain Present Pain Reported Location Abdomen Intensity 7 Scale Used Numeric (0 - 10) Description Aching,Cramping Pain Behaviors Guarding Pain Management Re-positioning Techniques M4 PT-IP Mobility and Gait Start: 05/09/25 16:18 Freq: NEEDED Status: Active Protocol: Document 05/10/25 11:43 DLM (Rec: 05/10/25 12:10 DLM Desktop) PT-Bed Mobility Assessment Supine to Sit Supine to Sit Independent Scooting Scooting to Edge of Independent Bed PT-Transfer Assessment Sit to and From Stand Sit to and from Standby Assistance,Use of Upper Extremities Stand Equipment Transfer Assistive Gait Belt,Front Wheeled Walker Device Transfers Transfer Destination Chair Transfer Technique Stand Step Pivot Transfer Ability Level of Assist Standby Assistance,Use of Upper Extremities Comments Mobility Comments Pt up to toilet before gait. She manages her clothing and hygiene on her own. Pt left up in recliner at the end of this visit with needs close and call button next to her. Gait Assessment Gait Gait Assistance Standby Assistance Required: Distance (Feet) 400 Assistive Devices Assistive Device Gait Belt,Front Wheeled Walker Factors Limiting Gait Function Factors Limiting Decreased Activity Tolerance,Pain,Poor Balance Gait Function Comments Gait Comments She requests to stay on the FWW this visit; does not feel ready to progress off the FWW. She reports her right shoulder pain makes it too hard to use the cane at this time. Stair Climbing Assessment Comments Stair Climbing she uses stair lift at home Comments PT-Balance Assessment Sitting Balance and Reactions Static Sitting Normal Balance Ability Dynamic Sitting Good Balance Ability Standing Balance and Reactions Static Standing Good Balance Ability Dynamic Standing Good Balance Ability Device Used FWW M5 PT-IP Objective Assessments Start: 05/09/25 16:18 Freq: NEEDED Status: Active Protocol: Document 05/09/25 16:15 DLM (Rec: 05/09/25 16:49 DLM Desktop) Orientation Orientation/Cognition Level of Alertness Alert Orientation Name,Age,Birthday,Month,Date,Year,Day of Week,Place, Situation Language Function No Deficits Noted Ability Safety Awareness Understands Safety Issues Memory Description No Deficits Noted Comments glasses on Gross Range of Motion Upper Extremity ROM Assessment Within Functional Limits Impairments she describes pain in right shoulder Lower Extremity ROM Assessment Within Functional Limits Strength Lower Extremity Strength Assessment Left Impaired Hip flex 4-/5 Comments Strength Comments she reports chronic left hip pain after JOSE and femur fx Coordination Assessment Gross Coordination Gross Coordination WNL Sensation Assessment Sensation Gross Sensation WNL Comments Sensation Comments she denies any numbness/tingling Muscle Tone Muscle Tone WNL Yes M6 PT-IP Treatment Start: 05/09/25 16:18 Freq: NEEDED Status: Active Protocol: Document 05/10/25 11:43 DLM (Rec: 05/10/25 12:10 DLM Desktop) Physical Therapy Treatment Exercises Exercises Ankle Pumps,Seated Knee Flexion/Extension Education Education Provided Safety Other Treatments Other Treatment Additional exercises completed: Performed Standing (with FWW support)- hip flexion, hip abduction , heel raises x 10 reps each Sit-stand from recliner 2 x 5 reps, minimized use of UE support as able She demonstrates good balance washing hands at sink with UE support on sink area or FWW. M7 PT-IP Assessment and Plan Start: 05/09/25 16:18 Freq: NEEDED Status: Active Protocol: Document 05/10/25 11:43 DLM (Rec: 05/10/25 12:10 DLM Desktop) PT Summary Assessment and Plan Summary Impairments Pain,Strength,Transfers,Gait,Activity Tolerance Progress Towards Progressing Toward Goals Goals Assessment Summary Shikha is alert and resting in bed today. She shows good improvement in therapy this visit. She was able to increase her distance of gait and participate in more exercises for functional strengthening. No increased abdominal pain reported with therapy activity but she continues to report 7/10 pain today. Recommend discharge home with support of Spouse and neighbor. Recommend home health services. Pt verbally agrees with discharge plan to home. Goals Bed Mobility Goal Independent Transfer Goal Independent,Cane,Front Wheeled Walker Gait Goal Independent,Cane,Front Wheel Walker Gait Distance 300 feet Days to Meet Goals 3 Frequency of Treatment Frequency Of Once a Day Treatment Treatment Plan Physical Therapy Bed Mobility Training,Transfer Training,Gait Training, Treatment Plan Therapeutic Exercise,Balance Retraining,Discharge Planning,Neuromuscular Re-ed Other manage abdominal pain Recommendations and Next Treatment Focus Precautions Other Precautions hx of falls with injury Recommendations To Nursing Amount of Assist Standby Assistance Needed Discharge Recommendations PT Discharge Home with Assistance,Home Health Recommendations Other Discharge she has a neighbor who comes over to help Recommendations Transportation Needs Private Vehicle at Discharge - PT assist 1
[2025-05-10 12:10] VITALS: BP 142/70; PULSE 66; RESP 14; TEMP 36.7; O2SAT 97
[2025-05-10] MEDS: MAGNESIUM CHLORIDE 64 MG TABLET 128 MG PO (12:24)
[2025-05-10] MEDS: LACTULOSE 20 GM/30 ML SOLUTION PO (12:52)
[2025-05-10 20:00] VITALS: BP 121/96; PULSE 64; RESP 16; TEMP 36.1; O2SAT 98
[2025-05-10] MEDS: DIVALPROEX ER 250 MG TAB 1500 MG PO (20:51)
[2025-05-10] MEDS: MELATONIN 3 MG TABLET 9 MG PO (20:52)
[2025-05-11] VITALS (7 sets, daily range): BP systolic 122–147; BP diastolic 59–77; PULSE 63–69; RESP 12–20; TEMP 36.2–37; O2SAT 92–99
[2025-05-11 06:17] LABS: Hematocrit 26.1 % (36-46); Hemoglobin 9.1 g/dL (12.0-16.0); Mean Corpuscular HGB Conc 34.7 % (30-36); Mean Corpuscular Hemoglobin 33.3 PG (26-34); Mean Corpuscular Volume 95.8 fL (80-100); Platelet Count 175 X10^3/uL (150-400)
[2025-05-11] MEDS: LEVOTHYROXINE 75 MCG TABLET PO (06:17)
[2025-05-11 06:27] LABS: Blood Urea Nitrogen 9 mg/dL (7-17); Calcium 7.9 mg/dL (8.4-10.2); Carbon Dioxide 24 mmol/L (22-32); Chloride 103 mmol/L (98-107); Estimated Glomerular Filt Rate > 60 mL/min (>60); Glucose 93 mg/dL (70-99); HEMOLYSIS < 15 (0-50); Potassium 3.8 mmol/L (3.4-5.1); Sodium 130 mmol/L (137-145)
[2025-05-11] MEDS: SODIUM CHLORIDE 0.9% 1,000 ML 100 ML IV ×2 (08:15→18:55)
[2025-05-11] MEDS: ONDANSETRON 4 MG/2 ML INJ IV (08:19)
[2025-05-11] MEDS: APIXABAN 5 MG TABLET PO ×2 (10:06→22:44)
--- NOTE | 2025-05-11 14:46 | PT.IPTN ---
Current Diagnoses Hypo-osmolality and hyponatremia (05/09/25) Physical Therapy Treatment Note M2 PT-IP Current Condition Start: 05/09/25 16:18 Freq: NEEDED Status: Active Protocol: Document 05/09/25 16:15 DLM (Rec: 05/09/25 16:49 DLM Desktop) Physical Therapy Current Condition Current Condition Evaluation Date 05/09/25 Treatment Diagnosis abdominal pain, impaired gait Onset Date 05/07/25 M3 PT-IP Subjective Start: 05/09/25 16:18 Freq: NEEDED Status: Active Protocol: Document 05/11/25 14:13 DCW (Rec: 05/11/25 14:46 DCW [id number]) Subjective Physical Therapy Visit Type Type Treatment Note Visit Start Time 14:13 Visit Stop Time 14:38 Notes 25 minutes Physical Therapy Visit Comments Patient Comments Pt notes she has had trouble sleeping the last two nights, I was hoping PT would be by and tire me out. Patient Goals Discharge home M4 PT-IP Mobility and Gait Start: 05/09/25 16:18 Freq: NEEDED Status: Active Protocol: Document 05/11/25 14:13 DCW (Rec: 05/11/25 14:46 DCW [id number]) PT-Bed Mobility Assessment Supine to Sit Supine to Sit Independent Scooting Scooting to Edge of Independent Bed PT-Transfer Assessment Sit to and From Stand Sit to and from Standby Assistance,Use of Upper Extremities Stand Equipment Transfer Assistive Gait Belt,Front Wheeled Walker Device Gait Assessment Gait Gait Assistance Standby Assistance Required: Distance (Feet) 510 Assistive Devices Assistive Device Gait Belt,Front Wheeled Walker Factors Limiting Gait Function Factors Limiting Decreased Activity Tolerance,Pain,Poor Balance Gait Function Comments Gait Comments Continues to feel more comfortable with FWW. Able to ambulate from room down to stairs, perform stairs, walk back to room, and then walk [facility]/ICU loop x2 prior to return to room. [place] good with the walking, but fatigued upon return to room. 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, which has [address], so pt would like to work more on stairs if possible M5 PT-IP Objective Assessments Start: 05/09/25 16:18 Freq: NEEDED Status: Active Protocol: Document 05/09/25 16:15 DLM (Rec: 05/09/25 16:49 DLM Desktop) Orientation Orientation/Cognition Level of Alertness Alert Orientation Name,Age,Birthday,Month,Date,Year,Day of Week,Place, Situation Language Function No Deficits Noted Ability Safety Awareness Understands Safety Issues Memory Description No Deficits Noted Comments glasses on Gross Range of Motion Upper Extremity ROM Assessment Within Functional Limits Impairments she describes pain in right shoulder Lower Extremity ROM Assessment Within Functional Limits Strength Lower Extremity Strength Assessment Left Impaired Hip flex 4-/5 Comments Strength Comments she reports chronic left hip pain after JOSE and femur fx Coordination Assessment Gross Coordination Gross Coordination WNL Sensation Assessment Sensation Gross Sensation WNL Comments Sensation Comments she denies any numbness/tingling Muscle Tone Muscle Tone WNL Yes M6 PT-IP Treatment Start: 05/09/25 16:18 Freq: NEEDED Status: Active Protocol: Document 05/10/25 11:43 DLM (Rec: 05/10/25 12:10 DLM Desktop) Physical Therapy Treatment Exercises Exercises Ankle Pumps,Seated Knee Flexion/Extension Education Education Provided Safety Other Treatments Other Treatment Additional exercises completed: Performed Standing (with FWW support)- hip flexion, hip abduction , heel raises x 10 reps each Sit-stand from recliner 2 x 5 reps, minimized use of UE support as able She demonstrates good balance washing hands at sink with UE support on sink area or FWW. M7 PT-IP Assessment and Plan Start: 05/09/25 16:18 Freq: NEEDED Status: Active Protocol: Document 05/11/25 14:13 DCW (Rec: 05/11/25 14:46 DCW [id number]) PT Summary Assessment and Plan Summary Impairments Pain,Strength,Transfers,Gait,Activity Tolerance Progress Towards Progressing Toward Goals Goals Assessment Summary Pt doing well with gait, progressing with goals, although still uncomfortable ambulating without using FWW. Did have some increased leg pain descending stairs , but pt happy with recent progress. Pt continues to be limited secondary to abdominal pain. Continue to recommend discharge home with services. Goals Bed Mobility Goal Independent Transfer Goal Independent,Cane,Front Wheeled Walker Gait Goal Independent,Cane,Front Wheel Walker Gait Distance 300 feet Days to Meet Goals 3 Frequency of Treatment Frequency Of Once a Day Treatment Treatment Plan Physical Therapy Bed Mobility Training,Transfer Training,Gait Training, Treatment Plan Therapeutic Exercise,Balance Retraining,Discharge Planning,Neuromuscular Re-ed Other manage abdominal pain Recommendations and Next Treatment Focus Precautions Other Precautions hx of falls with injury Recommendations To Nursing Amount of Assist Standby Assistance Needed Discharge Recommendations PT Discharge Home with Assistance,Home Health Recommendations Other Discharge she has a neighbor who comes over to help Recommendations Transportation Needs Private Vehicle at Discharge - PT assist 1
--- NOTE | 2025-05-11 19:10 | PM.PN.1 ---
Subjective Subjective Interval history: S: Doing a little bit better today, still some right upper quadrant pain and some loose stools today. She did receive lactulose yesterday. O: VSS NAD, alert and oriented. Fluent speech. Lungs are clear, normal rate and effort. Heart is regular, no murmur gallop or rub. Abdomen is soft, mild distended. Hypertympanic but less distended than yesterday. Extremities are free of edema. A/P: #Small Bowel Obstruction, resolving -monitor stools ? #Crohn's Disease Flare, resolving Recent flare precipitated by steroid taper, with symptoms worsening as prednisone decreased from 20mg to 5mg daily. Up to a quarter of patients with Crohn's disease will develop at least one small bowel stricture. - prednisone at 40 daily. ? # Hyponatremia, resolving -Sodium improved from 122 to 130 mEq/L with IV fluid administration. ? #Elevated Lipase, stable Lipase 552 U/L (normal <300) without clinical signs of pancreatitis. Elevated lipase levels can occur in many non-pancreatic conditions including small bowel obstruction. -Monitor for signs and symptoms of pancreatitis -Repeat lipase in AM= 566. Met with the patient and her . MOE: Anticipate discharge in 2 days. ? DVT Prophylaxis: -SCDs ? Code Status: -Full code Exam Vital Signs (past 8 hours): - 05/11/25 12:22 05/11/25 16:15 Temperature 98.4 F 98.1 F Pulse Rate 65 67 Respiratory Rate 18 14 Blood Pressure 147/77 H 142/77 H Pulse Oximetry 92 98 Oxygen Flow Rate 0 0 Oxygen Delivery Method Room Air Oxygen Flow Rate 0 Objective Labs 05/11/25 06:00 05/11/25 06:00 Labs: Laboratory Results - last 24 hr 05/11/25 06:00 WBC 4.5 RBC 2.73 L Hgb 9.1 L Hct 26.1 L MCV 95.8 MCH 33.3 MCHC 34.7 RDW 14.1 Plt Count 175 Sodium 130 L Potassium 3.8 Chloride 103 Carbon Dioxide 24 BUN 9 Creatinine 0.65 Estimated GFR > 60 BUN/Creatinine Ratio 13.8 Glucose 93 Calcium 7.9 L PFSH Medical History Generalized weakness Small bowel obstruction Surgical History Status post laparoscopic cholecystectomy H/O thyroidectomy Family History Mother Diabetes mellitus Heart disease Father Diabetes mellitus Heart disease Brother Myocardial infarction CVA (cerebral vascular accident) Other Hypertension Social History household members: spouse Smoking Status: Former smoker alcohol intake: former Assessment & Plan Time-Based Coding :: [TOTAL MINUTES] spent with patient and on the chart (including review of chart, obtaining history, exam, reviewing outside data, placing orders, documenting exam and treatment plan, and counseling patient) on [DATE]. Quality VTE Deep Vein Thrombosis/Pulmonary Embolism Present on Admission: No
[2025-05-11] MEDS: DIVALPROEX ER 250 MG TAB 1500 MG PO (22:45)
[2025-05-12] VITALS: BP 146/71; PULSE 71; RESP 12; TEMP 36.1; O2SAT 95
[2025-05-12 04:00] VITALS: BP 137/86; PULSE 80; RESP 20; TEMP 36.9; O2SAT 98
[2025-05-12 05:24] LABS: Hematocrit 28.3 % (36-46); Hemoglobin 9.9 g/dL (12.0-16.0); Mean Corpuscular HGB Conc 35.1 % (30-36); Mean Corpuscular Hemoglobin 33.8 PG (26-34); Mean Corpuscular Volume 96.3 fL (80-100); Platelet Count 191 X10^3/uL (150-400)
[2025-05-12] MEDS: LEVOTHYROXINE 75 MCG TABLET PO (05:42)
--- NOTE | 2025-05-12 07:34 | PM.PN.1 ---
Subjective Subjective Interval history: S: She was still having some pain, less distention. Some flatus. She was mostly eating clears. She denies any nausea or vomiting. O: VSS NAD, alert and oriented. Fluent speech. Lungs are clear, normal rate and effort. Heart is regular, no murmur gallop or rub. Abdomen is soft, mild distended. Hypertympanic but less distended than yesterday. Extremities are free of edema. A/P: 1. Small Bowel Obstruction and Crohn's flare, resolving -monitor stools, advance diet, transition to PO meds. ? 2. Hyponatremia, resolving -Sodium improved from 122 to 130 mEq/L with IV fluid administration. ? 3. Elevated Lipase, stable Lipase 552 U/L (normal <300) without clinical signs of pancreatitis. Elevated lipase levels can occur in many non-pancreatic conditions including small bowel obstruction. -Monitor for signs and symptoms of pancreatitis -Repeat lipase in AM= 566. PLAN: -Ambulate. -Lactulose 1 dose QD prn -Anticipate DC 05/14. -we will call her GI doctor ever it to facilitate transitioned to her next biologic. She probably requires a biologic for more aggressive induction therapies for her presumably active Crohn's. MOE: Anticipate discharge in 2 days. ? DVT Prophylaxis: -SCDs Exam Vital Signs (past 8 hours): - 05/12/25 00:00 05/12/25 04:00 Temperature 97.0 F L 98.4 F Pulse Rate 71 80 Respiratory Rate 12 20 Blood Pressure 146/71 H 137/86 Pulse Oximetry 95 98 Oxygen Flow Rate 0 0 Oxygen Delivery Method Room Air Oxygen Flow Rate 0 Objective Labs 05/12/25 04:40 05/11/25 06:00 Labs: Laboratory Results - last 24 hr 05/12/25 04:40 WBC 5.7 RBC 2.93 L Hgb 9.9 L Hct 28.3 L MCV 96.3 MCH 33.8 MCHC 35.1 RDW 14.2 Plt Count 191 PFSH Medical History Generalized weakness Small bowel obstruction Surgical History Status post laparoscopic cholecystectomy H/O thyroidectomy Family History Mother Diabetes mellitus Heart disease Father Diabetes mellitus Heart disease Brother Myocardial infarction CVA (cerebral vascular accident) Other Hypertension Social History household members: spouse Smoking Status: Former smoker alcohol intake: former Assessment & Plan Time-Based Coding :: [TOTAL MINUTES] spent with patient and on the chart (including review of chart, obtaining history, exam, reviewing outside data, placing orders, documenting exam and treatment plan, and counseling patient) on [DATE]. Quality VTE Deep Vein Thrombosis/Pulmonary Embolism Present on Admission: No
[2025-05-12 08:00] VITALS: BP 148/70; PULSE 74; RESP 17; TEMP 36.8; O2SAT 98
[2025-05-12] MEDS: APIXABAN 5 MG TABLET PO ×2 (08:43→20:51)
[2025-05-12 12:00] VITALS: BP 139/70; PULSE 79; RESP 16; TEMP 36.7; O2SAT 98
--- NOTE | 2025-05-12 12:20 | PT.IPTN ---
Current Diagnoses Hypo-osmolality and hyponatremia (05/09/25) Physical Therapy Treatment Note M2 PT-IP Current Condition Start: 05/09/25 16:18 Freq: NEEDED Status: Active Protocol: Document 05/12/25 12:02 SP (Rec: 05/12/25 12:43 SP Laptop) Physical Therapy Current Condition Current Condition Evaluation Date 05/09/25 Treatment Diagnosis abdominal pain, impaired gait Onset Date 05/07/25 M3 PT-IP Subjective Start: 05/09/25 16:18 Freq: NEEDED Status: Active Protocol: Document 05/12/25 12:02 SP (Rec: 05/12/25 12:43 SP Laptop) Subjective Physical Therapy Visit Type Type Treatment Note Visit Start Time 12:02 Visit Stop Time 12:22 Notes 20 min 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 Patient Goals DC home. Therapy Pain Assessment Pain When Pain Assessed During Mobility Pain Present Pain Present Pain Reported Location Abdomen Intensity 6 Scale Used Numeric (0 - 10) Pain Management Re-positioning Techniques Right Ribs Intensity 0 Scale Used Numeric (0 - 10) Pain Management Distraction,Modification of Treatment,Re-positioning Techniques M4 PT-IP Mobility and Gait Start: 05/09/25 16:18 Freq: NEEDED Status: Active Protocol: Document 05/12/25 12:02 SP (Rec: 05/12/25 12:43 SP Laptop) PT-Bed Mobility Assessment Supine to Sit Supine to Sit Independent Scooting Scooting to Edge of Independent Bed PT-Transfer Assessment Sit to and From Stand Sit to and from Standby Assistance,Use of Upper Extremities Stand Equipment Transfer Assistive Gait Belt,Front Wheeled Walker Device Transfers Transfer Destination Chair Transfer Technique pt ambulated with FWW Transfer Ability Level of Assist Standby Assistance,Use of Upper Extremities Comments Mobility Comments pt is I with bed mobility. SBA/ Mod I with FWW STS, gait with FWW into hallway around nursing station appprox 136 (2 laps) SBA/ Mod I utilizes FWW just for longer distance endurance and balance, states can't WB UE on FWW to much due to pain. She is Mod I bathroom use, cued for keeping FWW with her in front in bathroom and front of her at sink for safety balance needed. She returned to bed I scoot up and bed controls. Pt would benefit from trial assessment SPC use and balance activities next tx for assess PLOF return to use SPC. 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 PT-Balance Assessment Sitting Balance and Reactions Static Sitting Normal Balance Ability Dynamic Sitting Good Balance Ability Standing Balance and Reactions Static Standing Normal Balance Ability Dynamic Standing Good Balance Ability Device Used FWW M5 PT-IP Objective Assessments Start: 05/09/25 16:18 Freq: NEEDED Status: Active Protocol: Document 05/09/25 16:15 DLM (Rec: 05/09/25 16:49 DLM Desktop) Orientation Orientation/Cognition Level of Alertness Alert Orientation Name,Age,Birthday,Month,Date,Year,Day of Week,Place, Situation Language Function No Deficits Noted Ability Safety Awareness Understands Safety Issues Memory Description No Deficits Noted Comments glasses on Gross Range of Motion Upper Extremity ROM Assessment Within Functional Limits Impairments she describes pain in right shoulder Lower Extremity ROM Assessment Within Functional Limits Strength Lower Extremity Strength Assessment Left Impaired Hip flex 4-/5 Comments Strength Comments she reports chronic left hip pain after JOSE and femur fx Coordination Assessment Gross Coordination Gross Coordination WNL Sensation Assessment Sensation Gross Sensation WNL Comments Sensation Comments she denies any numbness/tingling Muscle Tone Muscle Tone WNL Yes M6 PT-IP Treatment Start: 05/09/25 16:18 Freq: NEEDED Status: Active Protocol: Document 05/12/25 12:02 SP (Rec: 05/12/25 12:43 SP Laptop) Physical Therapy Treatment Education Education Provided Safety Other Treatments Other Treatment Additional exercises completed: Performed Standing (with FWW support)- marching Sit-stand from recliner, minimized use of UE support as able She demonstrates good balance I use bathroom and washing hands at sink with no UE support on sink area or FWW. M7 PT-IP Assessment and Plan Start: 05/09/25 16:18 Freq: NEEDED Status: Active Protocol: Document 05/12/25 12:02 SP (Rec: 05/12/25 12:43 SP Laptop) PT Summary Assessment and Plan Potential Rehabilitation Good Potential Status of Condition Evolving at Evaluation Summary Impairments Pain,Strength,Activity Tolerance Progress Towards Progressing Toward Goals Goals Assessment Summary Pt doing well with gait, progressing with goals, although still uncomfortable ambulating without using FWW. Pt continues to be limited secondary to abdominal and R shld pain. Continue to recommend discharge home with services. Goals Bed Mobility Goal Independent Transfer Goal Independent,Cane,Front Wheeled Walker Gait Goal Independent,Cane,Front Wheel Walker Gait Distance 300 feet Days to Meet Goals 3 Frequency of Treatment Frequency Of Once a Day Treatment Treatment Plan Physical Therapy Bed Mobility Training,Transfer Training,Gait Training, Treatment Plan Therapeutic Exercise,Balance Retraining,Discharge Planning,Neuromuscular Re-ed Other progress gait with Spc, Balance activities. Recommendations and Next Treatment Focus Precautions Other Precautions hx of falls with injury Recommendations To Nursing Amount of Assist Standby Assistance Needed Discharge Recommendations PT Discharge Home with Assistance,Home Health Recommendations Other Discharge she has a neighbor who comes over to help Recommendations Transportation Needs Private Vehicle at Discharge - PT assist 1
--- NOTE | 2025-05-12 14:47 | CM.DPNOTE ---
DCP note SHIP CLEANER reviewed EMR per kaila pavon tomorrow with HH. medical criteria is decreased abdominal pain, decreased IV steroids, and sufficient stool output. per therapy ntoes, ambulating in hallways with walker/standby assist. doing laps per RN, no more IV fluids. giving PO pain med. and overall progressing towards home. SHIP CLEANER met with pt in room. pt resistant to home tomorrow, SHIP CLEANER reviewed DC criteria. pt does not believe she meets criteria for home. appeal process reviewed- pt familiar with process. agreeeable to home with [facility]. SHIP CLEANER canceled ref with Leana at [facility]. SHIP CLEANER sent ref information to Katie [facility]OPE[facility]. f2f/order needed. P: dc tomorrow, anticipate appeal. home with CGs and HH. will continue to follow closely for DCP Coordination SRIDHAR Tucker
--- NOTE | 2025-05-12 15:17 | OT.IP.TRT ---
Current Diagnoses Hypo-osmolality and hyponatremia (05/09/25) Occupational Therapy Treatment Note M2 OT-IP Current Condition Start: 05/08/25 14:13 Freq: Status: Active Protocol: Document 05/08/25 13:15 CCC (Rec: 05/08/25 14:40 CCC Desktop) Occupational Therapy Current Condition Current Condition Evaluation Date 05/08/25 Treatment Diagnosis small bowel obstruction, generalized weakness Diagnosis Onset Date 05/07/25 M3 OT- IP Subjective and Pain Start: 05/08/25 14:13 Freq: Status: Active Protocol: Document 05/12/25 15:06 JORDAN (Rec: 05/12/25 15:17 [facility] Desktop) OT- Subjective Occupational Therapy Visit Type Type Treatment Note Visit Start Time 14:45 Visit Stop Time 15:00 Occupational Therapy Visit Comments Patient Comments Pt was reclined in bed sleeping on entrance of OT. Pt woke easily and was agreeable to participating in OT tx . Pt reports she has not been sleeping well in the hospital and is looking forward to returning home. Patient/Caregiver To get better. Goals OT Pain Assessment Pain When Pain Assessed At Rest Pain Present Pain Present Pain Reported Location Right Ribs Scale Used not rated M4 OT- IP ADL's Start: 05/08/25 14:13 Freq: Status: Active Protocol: Document 05/12/25 15:06 JORDAN (Rec: 05/12/25 15:17 RUDDYIANSCHAZ Desktop) OT [id number] Comments OT Self-Feeding not observed Comments OT ADL-Grooming General Evaluation Grooming Ability Independent Comments OT Grooming Comments Pt washes her hands sink side with I. OT ADL-Oral Care Comments Oral Care Comments not observed OT ADL-Dressing General Eval Upper Body Dressing Independent Ability Lower Body Dressing Contact Guard Assistance Ability Areas Needing Socks Assistance Comments OT Dressing Comments Pt donned/doffed sweater I'ly. OT re-educated pt on use of LB AE for socks. Pt declined education for pants. Pt was able to use the erp manager to doff B socks with vcs only and used the sock aid to don socks with vcs. Overall pt was CGA with LB AE for socks. OT ADL-Toileting General Evaluation Toileting Ability Independent Comments OT Toileting Pt able to manage clothing and hygiene. Comments OT ADL-Bathing Comments OT Bathing Comments not observed M5 OT- IP IADL's Start: 05/08/25 14:13 Freq: Status: Active Protocol: Document 05/08/25 13:15 CCC (Rec: 05/08/25 14:40 CCC Desktop) OT-Instrumental Activities of Daily Living Home Safety Awareness Awareness of Need Good Awareness for Assistance at Home Ability to Problem Able to Problem Solve Solve Emergency Situations Meal Preparation Meal Preparation Caregiver Provides Assist Diesel Mechanic Apprentice Diesel Mechanic Apprentice Caregiver Provides Assist M6 OT- IP Functional Cognition Start: 05/08/25 14:13 Freq: Status: Active Protocol: Document 05/09/25 13:15 JORDAN (Rec: 05/09/25 14:21 RUDDYIAROTON Desktop) Cognitive Factors Limiting Selfcare Function Cognitive Ability Level of Alertness Alert Patient Orientation Name,Age,Birthday,Month,Date,Year,Day of Week,Place, Situation Attention Span Capable of Focused Attention,Capable of Sustained Ability Attention Ability to Follow Able to Follow One Step Commands Commands Cognitive Comments Cognitive Assessment After OT demonstrated use of sock aid and presented Comments sock aid and sock to pt, pt placed her sock inside of the sock aid. OT reminded pt that she was supposed to thread the sock on the tube of the sock aid, to which she stated oh yeah and then began placing her sock on the tube inside out. OT had to initiate placing the sock on the tube and then pt was able to pull it on with heavy cues. Pt may benefit from further cognitive assessment. M7 OT- IP Mobility and Balance Start: 05/08/25 14:13 Freq: Status: Active Protocol: Document 05/12/25 15:06 JORDAN (Rec: 05/12/25 15:17 RUDDYIAWINIFRED Desktop) OT- Bed Mobility Assessment Supine to Sit Supine to Sit Assist Independent Sit to Supine Sit to Supine Assist Independent Scooting Scooting to Edge of Independent Bed OT-Transfer Assessment Sit to and From Stand Sit to and from Standby Assistance,Use of Upper Extremities Stand Transfers Transfer Ability Standby Assistance,Use of Upper Extremities Technique Transfer Destination Bed,Chair,Toilet Devices Transfer Assistive Gait Belt,Front Wheeled Walker Devices Comments Mobility Comments Pt amb with FWW throughout room for BADL needs. Pt with good safety awareness during functional t/fs. OT- Gait Assessment Gait Gait Assistance Standby Assistance Required: Distance (Feet) 15 Assistive Devices Assistive Device Gait Belt,Front Wheeled Walker OT- Balance Assessment Sitting Balance and Reactions Static Sitting Normal Balance Ability Dynamic Sitting Good Balance Ability Standing Balance and Reactions Static Standing Normal Balance Ability Dynamic Standing Good Balance Ability M8 OT- IP Objective Assessments Start: 05/08/25 14:13 Freq: Status: Active Protocol: Document 05/08/25 13:15 CCC (Rec: 05/08/25 14:40 CCC Desktop) OT Gross Range of Motion Upper Extremity Range of Motion ROM Impairments Decreased at end ROM OT Strength Comments Strength Comments BUE right shoulder 3+/5, elbow 4-/5 to hand 4/5 left shoulder 4-/5 elbow and hand 4/5 M9 OT- IP Assessment and Plan Start: 05/08/25 14:13 Freq: Status: Active Protocol: Document 05/12/25 15:06 TJOHNSTON (Rec: 05/12/25 15:17 TJOHNSTON Desktop) OT Summary Assessment and Plan Potential Rehabilitation Good Potential Analytic Complexity Moderate at Evaluation Summary OT Impairments Pain,Range of Motion,Strength,Balance,Functional Mobility,Grooming,Dressing,Toileting,Bathing,Toilet Transfers,Shower Transfers,Activity Tolerance Progress Towards Progressing Toward Goals,Slow Progress due to Medical Goals Issues Assessment Summary Pt demonstrated improved I with use of AE for LB dressing today. Pt did not display any episodes of confusion with this task, like she did on 05/09. Overall she performed LB dressing with CGA, toileting with I, sink side ADLs with I and functional tfs with S . She demonstrates good safety awareness during functional tfs as well. Pt left reclined in bed with all needs met and in reach. Pt continues to be appropriate for skilled OT services per established POC . Recommend HH on dc home. Goals Dressing Goal Independent Toileting Goal Independent Bathing Goal Standby Assistance Toilet Transfer Goal Independent Shower Transfer Goal Independent Days to Meet Goals 7 Frequency of Treatment Other frequency 5x/week Treatment Plan Other Treatment Shower, if pt agreeable. Recommendations and Next Treatment Focus Discharge Recommendations OT Discharge Home Health Recommendations Transportation Needs Private Vehicle,Wheelchair/Cabulance at Discharge
[2025-05-12 16:00] VITALS: BP 132/77; PULSE 80; RESP 17; TEMP 36.6; O2SAT 97
[2025-05-12] MEDS: ONDANSETRON 4 MG/2 ML INJ IV (19:57)
[2025-05-12 20:00] VITALS: BP 137/76; PULSE 65; RESP 16; TEMP 36.6; O2SAT 96
[2025-05-12] MEDS: DIVALPROEX ER 250 MG TAB 1500 MG PO (20:51)
[2025-05-13] VITALS: BP 152/63; PULSE 66; RESP 16; O2SAT 95
[2025-05-13 04:00] VITALS: BP 141/69; PULSE 69; RESP 16; TEMP 36.8; O2SAT 97
[2025-05-13] MEDS: LEVOTHYROXINE 75 MCG TABLET PO (04:44)
[2025-05-13 05:17] LABS: Hematocrit 26.7 % (36-46); Hemoglobin 9.3 g/dL (12.0-16.0); Mean Corpuscular HGB Conc 34.7 % (30-36); Mean Corpuscular Hemoglobin 33.4 PG (26-34); Mean Corpuscular Volume 96.1 fL (80-100); Platelet Count 160 X10^3/uL (150-400)
[2025-05-13 05:27] LABS: Alanine Aminotransferase 17 IU/L (<35); Albumin 2.8 g/dL (3.5-5.0); Albumin Globulin Ratio 1.1 (1.0-2.8); Alkaline Phosphatase 88 U/L (38-126); Blood Urea Nitrogen 18 mg/dL (7-17); Calcium 8.0 mg/dL (8.4-10.2); Carbon Dioxide 27 mmol/L (22-32); Chloride 100 mmol/L (98-107); Estimated Glomerular Filt Rate > 60 mL/min (>60); Globulin 2.5 g/dL (1.7-4.1); Glucose 82 mg/dL (70-99); HEMOLYSIS < 15 (0-50); Potassium 3.4 mmol/L (3.4-5.1); Sodium 132 mmol/L (137-145); Total Protein 5.3 g/dL (6.3-8.2)
--- NOTE | 2025-05-13 07:36 | PM.PN.1 ---
Subjective Subjective Interval history: S: Ongoing slow improvement. Anticipate discharge tomorrow. Another dose of lactulose was requested and given today. O: VSS NAD, alert and oriented. Fluent speech. Lungs are clear, normal rate and effort. Heart is regular, no murmur gallop or rub. Abdomen is soft, non distended. Extremities are free of edema. IMAGING: ECHO: The study quality was technically difficult. The ejection fraction is estimated to be 60-65%. Normal diastolic function. The right ventricle is normal in size and function. There is mild mitral regurgitation. Pulmonary artery pressures cannot be estimated because of the lack of a measurable TR jet velocity but the IVC suggests a CVP of around 3 mmHg. CTAP: Compared to prior CT 04/19/2025, decreased small bowel distension with stable post colectomy changes. Decreased bilateral pleural effusions. A/P: 1. Small Bowel Obstruction and Crohn's flare, resolving 2. Hyponatremia, resolving 3. Elevated Lipase, stable PLAN: -Ambulate. -Lactulose 1 dose QD prn -Anticipate DC 05/14. -we will call her GI doctor ever it to facilitate transitioned to her next biologic. She probably requires a biologic for more aggressive induction therapies for her presumably active Crohn's. MOE: Anticipate discharge 05/14 ? DVT Prophylaxis: -SCDs Exam Vital Signs (past 8 hours): - 05/13/25 00:00 05/13/25 04:00 Temperature 98.3 F Pulse Rate 66 69 Respiratory Rate 16 16 Blood Pressure 152/63 H 141/69 H Pulse Oximetry 95 97 Oxygen Flow Rate 0 0 Oxygen Delivery Method Room Air Oxygen Flow Rate 0 Objective Labs 05/13/25 05:00 05/13/25 05:00 Labs: Laboratory Results - last 24 hr 05/13/25 05:00 WBC 4.6 RBC 2.78 L Hgb 9.3 L Hct 26.7 L MCV 96.1 MCH 33.4 MCHC 34.7 RDW 14.1 Plt Count 160 Sodium 132 L Potassium 3.4 Chloride 100 Carbon Dioxide 27 BUN 18 H Creatinine 0.84 Estimated GFR > 60 BUN/Creatinine Ratio 21.4 Glucose 82 Calcium 8.0 L Total Bilirubin 0.2 AST 20 ALT 17 Alkaline Phosphatase 88 Total Protein 5.3 L Albumin 2.8 L Globulin 2.5 Albumin/Globulin Ratio 1.1 [facility] Medical History Generalized weakness Small bowel obstruction Surgical History Status post laparoscopic cholecystectomy H/O thyroidectomy Family History Mother Diabetes mellitus Heart disease Father Diabetes mellitus Heart disease Brother Myocardial infarction CVA (cerebral vascular accident) Other Hypertension Social History household members: spouse Smoking Status: Former smoker alcohol intake: former Assessment & Plan Time-Based Coding :: [TOTAL MINUTES] spent with patient and on the chart (including review of chart, obtaining history, exam, reviewing outside data, placing orders, documenting exam and treatment plan, and counseling patient) on [DATE]. Quality VTE Deep Vein Thrombosis/Pulmonary Embolism Present on Admission: No
[2025-05-13 07:43] VITALS: BP 147/69; PULSE 63; RESP 17; TEMP 36.8; O2SAT 98
[2025-05-13] MEDS: APIXABAN 5 MG TABLET PO ×2 (08:44→20:18)
[2025-05-13] MEDS: POTASSIUM CHLORIDE 20 MEQ TAB 40 MEQ PO (08:46)
[2025-05-13 11:00] VITALS: BP 169/93; PULSE 82; RESP 18; TEMP 36; O2SAT 96
--- NOTE | 2025-05-13 11:14 | PT.IPTN ---
Current Diagnoses Hypo-osmolality and hyponatremia (05/09/25) Physical Therapy Treatment Note M2 PT-IP Current Condition Start: 05/09/25 16:18 Freq: NEEDED Status: Active Protocol: Document 05/12/25 12:02 SP (Rec: 05/12/25 12:43 SP Laptop) Physical Therapy Current Condition Current Condition Evaluation Date 05/09/25 Treatment Diagnosis abdominal pain, impaired gait Onset Date 05/07/25 M3 PT-IP Subjective Start: 05/09/25 16:18 Freq: NEEDED Status: Active Protocol: Document 05/13/25 10:34 [facility] (Rec: 05/13/25 11:14 [facility] [id number]) Subjective Physical Therapy Visit Type Type Treatment Note Visit Start Time 10:34 Visit Stop Time 10:59 Number of BICYCLE ASSEMBLER Visits 0 Physical Therapy Visit Comments Patient Comments got up at 230 am. just got a shower. Therapy Pain Assessment Pain Present Pain Present Pain Reported Location Right Ribs Scale Used Numeric (0 - 10) M4 PT-IP Mobility and Gait Start: 05/09/25 16:18 Freq: NEEDED Status: Active Protocol: Document 05/13/25 10:34 [facility] (Rec: 05/13/25 11:14 [facility] [id number]) PT-Bed Mobility Assessment Supine to Sit Supine to Sit Independent,Head of Bed Elevated Sit to Supine Sit to Supine Independent,Head of Bed Elevated Scooting Scooting to Edge of Independent Bed PT-Transfer Assessment Sit to and From Stand Sit to and from Standby Assistance,Use of Upper Extremities Stand Equipment Transfer Assistive Gait Belt,Straight Cane Device Comments Mobility Comments independent donning and doffing shoes at EOB, indep w/ supine to sit from elevated bed, sit to stand SBA to SPC then amb w/cues for step length for a total of 400ft w/SPC SBA w/up/down training stairs CGA w/B rails . Pt left in room in bed w/bed alarm on and call light in reach. Gait Assessment Gait Gait Assistance Standby Assistance Required: Distance (Feet) 400 Assistive Devices Assistive Device Gait Belt,Front Wheeled Walker Gait Deviations General Gait Pattern Decreased Stride Length Factors Limiting Gait Function Factors Limiting Decreased Strength,Pain,Poor Balance Gait Function Stair Climbing Assessment Evaluation Level of Assist On Contact Guard Assistance,1 Person Assistance Stairs Devices Stair Climbing Left Railing,Right Railing Assistive Devices Technique/Endurance Stair Climbing Ascend and Descend Direction Stair Climbing Step to Step Technique Number of Steps 3 Climbed Stair Climbing Set # 1 Repetitions (reps) PT-Balance Assessment Sitting Balance and Reactions Static Sitting Normal Balance Ability Dynamic Sitting Normal Balance Ability Standing Balance and Reactions Static Standing Good Balance Ability Dynamic Standing Good Balance Ability M5 PT-IP Objective Assessments Start: 05/09/25 16:18 Freq: NEEDED Status: Active Protocol: Document 05/09/25 16:15 [facility] (Rec: 05/09/25 16:49 [facility] Desktop) Orientation Orientation/Cognition Level of Alertness Alert Orientation Name,Age,Birthday,Month,Date,Year,Day of Week,Place, Situation Language Function No Deficits Noted Ability Safety Awareness Understands Safety Issues Memory Description No Deficits Noted Comments glasses on Gross Range of Motion Upper Extremity ROM Assessment Within Functional Limits Impairments she describes pain in right shoulder Lower Extremity ROM Assessment Within Functional Limits Strength Lower Extremity Strength Assessment Left Impaired Hip flex 4-/5 Comments Strength Comments she reports chronic left hip pain after JOSE and femur fx Coordination Assessment Gross Coordination Gross Coordination WNL Sensation Assessment Sensation Gross Sensation WNL Comments Sensation Comments she denies any numbness/tingling Muscle Tone Muscle Tone WNL Yes M6 PT-IP Treatment Start: 05/09/25 16:18 Freq: NEEDED Status: Active Protocol: Document 05/13/25 10:34 [facility] (Rec: 05/13/25 11:14 [facility] [id number]) Physical Therapy Treatment Other Treatments Other Treatment sit to stand w/min hand use x10, august at walker x12 B, Performed PF and DF x15 ea DL at walker, hip abd at walker x10 B M7 PT-IP Assessment and Plan Start: 05/09/25 16:18 Freq: NEEDED Status: Active Protocol: Document 05/13/25 10:34 [facility] (Rec: 05/13/25 11:14 [facility] [id number]) PT Summary Assessment and Plan Summary Progress Towards Progressing Toward Goals Goals Assessment Summary Pt able to amb w/SPC w/cues for step length. Encouraged to use FWW as needed at home if feels inc pain or unsteadiness. Encouraged OP PT after HH. She did improve with activity tolerance and mobility today. cont to recommend home w/HH Goals Bed Mobility Goal Independent Transfer Goal Independent,Cane,Front Wheeled Walker Gait Goal Independent,Cane,Front Wheel Walker Gait Distance 300 feet Days to Meet Goals 3 Treatment Plan Physical Therapy Bed Mobility Training,Transfer Training,Gait Training, Treatment Plan Therapeutic Exercise,Balance Retraining,Discharge Planning,Neuromuscular Re-ed Other progress gait with Spc, Balance activities. Recommendations and Next Treatment Focus Precautions Other Precautions hx of falls with injury Discharge Recommendations PT Discharge Home with Assistance,Home Health Recommendations Transportation Needs Private Vehicle at Discharge - PT assist 1
--- NOTE | 2025-05-13 11:37 | OT.IP.TRT ---
Current Diagnoses Hypo-osmolality and hyponatremia (05/09/25) Occupational Therapy Treatment Note M2 OT-IP Current Condition Start: 05/08/25 14:13 Freq: Status: Active Protocol: Document 05/08/25 13:15 [facility] (Rec: 05/08/25 14:40 [facility] Desktop) Occupational Therapy Current Condition Current Condition Evaluation Date 05/08/25 Treatment Diagnosis small bowel obstruction, generalized weakness Diagnosis Onset Date 05/07/25 M3 OT- IP Subjective and Pain Start: 05/08/25 14:13 Freq: Status: Active Protocol: Document 05/13/25 11:49 [facility] (Rec: 05/13/25 11:57 [facility] Desktop) OT- Subjective Occupational Therapy Visit Type Type Treatment Note Visit Start Time 11:37 Visit Stop Time 11:49 Occupational Therapy Visit Comments Patient Comments Pt states showered on her own after set-up from nursing . Patient/Caregiver TO go home. Goals OT Pain Assessment Pain When Pain Assessed At Rest Pain Present Pain Present Pain Reported M4 OT- IP ADL's Start: 05/08/25 14:13 Freq: Status: Active Protocol: Document 05/13/25 11:49 [facility] (Rec: 05/13/25 11:57 [facility] Desktop) OT ADL-Dressing General Eval Upper Body Dressing Independent Ability OT ADL-Toileting Comments OT Toileting Pt able to donnf/doff her shirt and jacket while sitting on the Comments edge of the bed. M5 OT- IP IADL's Start: 05/08/25 14:13 Freq: Status: Active Protocol: Document 05/08/25 13:15 [facility] (Rec: 05/08/25 14:40 [facility] Desktop) OT-Instrumental Activities of Daily Living Home Safety Awareness Awareness of Need Good Awareness for Assistance at Home Ability to Problem Able to Problem Solve Solve Emergency Situations Meal Preparation Meal Preparation Caregiver Provides Assist Academic Program Specialist Academic Program Specialist Caregiver Provides Assist M6 OT- IP Functional Cognition Start: 05/08/25 14:13 Freq: Status: Active Protocol: Document 05/13/25 11:49 [facility] (Rec: 05/13/25 11:57 [facility] Desktop) Cognitive Factors Limiting Selfcare Function Cognitive Comments Cognitive Assessment Pt not wanting to do SLUMS. Pt states has had no Comments difficulty to do tasks on her phone. Pt however having trouble to spell the word worldbackwards. Pt states her to be home to assist her as needed. Pt able to answer all home safety questions accurately. M7 OT- IP Mobility and Balance Start: 05/08/25 14:13 Freq: Status: Active Protocol: Document 05/13/25 11:49 [facility] (Rec: 05/13/25 11:57 [facility] Desktop) OT- Bed Mobility Assessment Supine to Sit Supine to Sit Assist Independent Sit to Supine Sit to Supine Assist Independent OT- Balance Assessment Sitting Balance and Reactions Static Sitting Normal Balance Ability Dynamic Sitting Normal Balance Ability M8 OT- IP Objective Assessments Start: 05/08/25 14:13 Freq: Status: Active Protocol: Document 05/08/25 13:15 [facility] (Rec: 05/08/25 14:40 [facility] Desktop) OT Gross Range of Motion Upper Extremity Range of Motion ROM Impairments Decreased at end ROM OT Strength Comments Strength Comments BUE right shoulder 3+/5, elbow 4-/5 to hand 4/5 left shoulder 4-/5 elbow and hand 4/5 M9 OT- IP Assessment and Plan Start: 05/08/25 14:13 Freq: Status: Active Protocol: Document 05/13/25 11:49 [facility] (Rec: 05/13/25 11:57 [facility] Desktop) OT Summary Assessment and Plan Potential Rehabilitation Good Potential Analytic Complexity Moderate at Evaluation Summary OT Impairments Pain,Range of Motion,Strength,Balance,Functional Mobility,Grooming,Dressing,Toileting,Bathing,Toilet Transfers,Shower Transfers,Activity Tolerance Progress Towards Progressing Toward Goals,Slow Progress due to Medical Goals Issues Assessment Summary Pt states feeling much better and was able to shower after set-up from nursing staff earlier. Pt is aware still not back to normal and feeling a little foggy still cognitively. Pt to go home with 24/ available assist and home health. Goals Dressing Goal Independent Toileting Goal Independent Bathing Goal Standby Assistance Toilet Transfer Goal Independent Shower Transfer Goal Independent Days to Meet Goals 2 Discharge Recommendations OT Discharge Home Health Recommendations Transportation Needs Private Vehicle at Discharge
[2025-05-13 15:00] VITALS: BP 137/77; PULSE 77; RESP 17; TEMP 36.6; O2SAT 98
--- NOTE | 2025-05-13 16:43 | CM.DPNOTE ---
DCP note CIGAR HEAD PERFORATOR reviewed EMR per provider, changing some meds around. plan for dc tomorrow. CIGAR HEAD PERFORATOR met with pt in room. reviewed plan. in agreement to dc tomorrow home with HH. ride cannot be here until the evening. CIGAR HEAD PERFORATOR encouraged pt to call spouse and see if ride can come sooner. pt agreed. denied other questions. CIGAR HEAD PERFORATOR provided final copy of IMM P: Dc home tomorrow with spouse, PP [facility], and [facility]. will continue to follow closely for DCP coordination SRIDHAR Duong
[2025-05-13] MEDS: LACTULOSE 20 GM/30 ML SOLUTION PO (17:59)
[2025-05-13 19:53] VITALS: BP 140/50; PULSE 66; RESP 18; TEMP 36.4; O2SAT 95
[2025-05-13] MEDS: DIVALPROEX ER 250 MG TAB 1500 MG PO (20:17)
[2025-05-13] MEDS: MELATONIN 3 MG TABLET 9 MG PO (20:18)
[2025-05-14] MEDS: ONDANSETRON 4 MG/2 ML INJ IV (02:47)
--- NOTE | 2025-05-14 03:10 | PC.NURSE ---
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 Patient fell to sleep with HOB up to 46* with pillows propped up behind her. and call light in lap. VS WNL.
[2025-05-14 05:01] LABS: Hematocrit 28.7 % (36-46); Hemoglobin 9.8 g/dL (12.0-16.0); Mean Corpuscular HGB Conc 34.2 % (30-36); Mean Corpuscular Hemoglobin 33.2 PG (26-34); Mean Corpuscular Volume 97.2 fL (80-100); Platelet Count 180 X10^3/uL (150-400)
[2025-05-14 05:13] LABS: Alanine Aminotransferase 16 IU/L (<35); Albumin 2.9 g/dL (3.5-5.0); Albumin Globulin Ratio 1.2 (1.0-2.8); Alkaline Phosphatase 88 U/L (38-126); Blood Urea Nitrogen 26 mg/dL (7-17); Calcium 7.9 mg/dL (8.4-10.2); Carbon Dioxide 28 mmol/L (22-32); Chloride 100 mmol/L (98-107); Estimated Glomerular Filt Rate > 60 mL/min (>60); Globulin 2.4 g/dL (1.7-4.1); Glucose 72 mg/dL (70-99); HEMOLYSIS < 15 (0-50); Potassium 4.1 mmol/L (3.4-5.1); Sodium 131 mmol/L (137-145); Total Protein 5.3 g/dL (6.3-8.2)
[2025-05-14 05:19] LABS: Magnesium 2.0 mg/dL (1.6-2.3)
[2025-05-14] MEDS: LEVOTHYROXINE 75 MCG TABLET PO (06:21)
[2025-05-14] MEDS: APIXABAN 5 MG TABLET PO (08:56)
[2025-05-14 09:07] VITALS: BP 122/63; PULSE 77; RESP 17; TEMP 36.8; O2SAT 99
--- NOTE | 2025-05-14 10:56 | DIET.PN1 ---
Dietary Progress Note Assessment: f/u Pt has improved PO intakes, DFM reviewed for meal composition/adequacy. Ht: 152.4 cm Wt: 47.627 kg BMI: 20.5 UBW: hx of ubw being 120#, pt wanting to get to 110# now (BMI 21.5), +10# since last admission Last BM: 05/11/25 (05/11/25 18:09) MNA: 7 Sean Score: 19 Diet: 05/09/25 Lunch General (Regular) Diet Diet Modifications: Food Texture: Level 7 - Regular Liquid Consistency: Level 0 - Thin 05/10/25 Dinner Courtesy Tray (Peds, comfort care) Diet Modifications: Nutrition Percent Meal Consumed 75% 05/14/25 09:12 Percent Meal Consumed 100% 05/13/25 18:00 Percent Meal Consumed 50% 05/12/25 18:00 Percent Meal Consumed 100% 05/12/25 13:33 Labs: RBC 2.95 X10^6/uL (4.0-5.2) L 05/14/25 04:50 Hgb 9.8 g/dL (12.0-16.0) L 05/14/25 04:50 Hct 28.7 % (36-46) L 05/14/25 04:50 Creatinine 0.91 mg/dL (0.52-1.04) 05/14/25 04:50 Monitoring/Evaluations: PO intakes, protein supplement if multiple PO intakes <75% Electronically Signed by: Mela Lara 05/14/25 10:56 Clinical [address] [id number]
[2025-05-14] MEDS: ACETAMINOPHEN 325 MG TABLET 975 MG PO (11:19)
--- NOTE | 2025-05-14 14:08 | PM.DS.1 ---
History of Present Illness History of Present Illness Chief complaint: prev bowel obst., no BM for 2days, pn under ribs Narrative: From H&P: 74 years old female with history of inflammatory bowel disease including ulcerative colitis leading to total colectomy in 1992 [facility] and later on diagnosed with Crohn's disease in 2023 in [facility], recently discharged from [facility] after thorough workup and sent to rehab center discharged 2 days ago presented to the ER with right-sided epigastric pain, nausea and vomiting with concern of small bowel obstruction. The p patient vomited once today without any blood. Report right upper quadrant severe abdominal pain relieved by vomiting. Denies fever, shortness of breath, chest pain, hematemesis or melena. Reports recent diarrhea but did not have any bowel movements in the last 2 days which is quite unusual for her. CT of the abdomen shows compared to the prior CT of 04/19/2025 decreased small bowel distention with stable post colectomy changes. Decreased bilateral pleural effusion. Laboratory shows WBC 7.5, hemoglobin 11.5, platelets 295, sodium 122, creatinine 1.04, glucose 74, lipase 552, troponin negative, LFT normal. In the ER she was given 1 L of LR and Eitzen. During hospital stay she was found to be bradycardic with heart rate in 40s. EKG shows sinus bradycardia. In terms of her bradycardia and hyponatremia was decided to be admitted for observation. Hospital course: 05/08: 74-year-old female with extensive history of remote ulcerative colitis status post total colectomy followed by diagnosis of Crohn's disease. Was treated at a tertiary care center for flare of Crohn's disease and was on a steroid taper. As the dose decreased from 20 mg to 10 mg patient started having progressive symptoms of distention tenesmus and decreased appetite. Patient tapered the dose down further to 5 mg per instructions and she became unable to eat severely distended and came to the emergency room for evaluation. Findings in the emergency department: CT of the abdomen and pelvis showing extensive small-bowel distention with gas but no appreciable stool burden Sodium 122 creatinine is 1 lipase is 552 Hemogram in the remainder of the comprehensive metabolic is unremarkable. Past medical history: Colectomy 1992 for ulcerative colitis Crohn's disease 2023 [facility] Multiple abdominal surgeries for adhesions History cholecystectomy History of thyroidectomy IMAGING: ECHO: The study quality was technically difficult. The ejection fraction is estimated to be 60-65%. Normal diastolic function. The right ventricle is normal in size and function. There is mild mitral regurgitation. Pulmonary artery pressures cannot be estimated because of the lack of a measurable TR jet velocity but the IVC suggests a CVP of around 3 mmHg. CTAP: Compared to prior CT 04/19/2025, decreased small bowel distension with stable post colectomy changes. Decreased bilateral pleural effusions. HOSPITAL COURSE: She was admitted initially treated with bowel rest and steroids. The patient had slow improvement of symptoms but a lot of persistent distention. Her diet was slowly advanced and she responded to small doses of lactulose. Her steroids were converted to prednisone. Ultimately she improved enough to discharge home. I did call her primary personal counselor, Lucio Betancourt. He recommended ongoing slow taper of steroids, she will be on 50 a day for the next week to 10 days and then 25 a day. He was going to begin pre authorization for a second-line biologic in hopes of starting here in the next couple of weeks on this. This will likely be Stelara. The patient was updated as to this plan and will contact him with any questions. In addition she will continue small amounts of food which are soft in the interim and hydrate vigorously. A/P: 1. Small Bowel Obstruction and Crohn's flare, improved. 2. Hyponatremia, improved. 3. Elevated Lipase, stable Discharge PLAN: I did call her primary personal counselor, Lucio Betancourt. He recommended ongoing slow taper of steroids, she will be on 50 a day for the next week to 10 days and then 25 a day. He was going to begin pre authorization for a second-line biologic in hopes of starting here in the next couple of weeks on this. This will likely be Stelara. The patient was updated as to this plan and will contact him with any questions. In addition she will continue small amounts of food which are soft in the interim and hydrate vigorously. [N], the patient has documentation of a left ventricle ejection fracture less than or equal to 40%, or moderately or severely reduced left ventricle systolic function. [N], the patient has a history of heart transplant or left ventricular assist device (LVAD). [N], the patient was prescribed an TUYET inhibitor at discharge or is already being taken. The patient was not prescribed an TUYET-inhibitor because of the following exception: NA [N], the patient was prescribed Metoprolol succinate, bisoprolol, or carvedilol at discharge. The patient was not prescribed Metoprolol succinate, bisoprolol, or carvedilol at discharge because of the following exception: NA 35 minutes spent coordinating discharge. Discharge Providers Provider Date of admission: 05/09/25 07:57 Discharge Date: 05/14/25 Primary care physician: Judy Davison MD Consults: 05/07/25 22:54 Consult to Discharge Planning Routine Comment: 05/08/25 12:40 Consult to Physical Therapy Evaluate & Treat Comment: Physician Instructions: Evaluate and Treat 05/08/25 12:41 Consult to Occupational Therapy Evaluate & Treat Comment: Physician Instructions: Evaluate and treat 05/13/25 10:55 Consult to Pharmacy Routine Comment: high fall risk Discharge provider: Yonas Solo MD Summary Hospital Course Discharge Diagnosis: See above. Hospital Course: See above. Status at Discharge Cognitive/behavioral status at discharge: oriented Functional status at discharge: independent ambulation Overall status at discharge: patient is back to baseline Time Spent with Patient Time spent: Greater than 30 minutes Exam Vital Signs (past 8 hours): - 05/14/25 09:07 Temperature 98.2 F Pulse Rate 77 Respiratory Rate 17 Blood Pressure 122/63 Pulse Oximetry 99 Oxygen Flow Rate 0 Oxygen Delivery Method Room Air Oxygen Flow Rate 0 Narrative Exam Narrative: DISCHARGE EXAM: NAD, alert and oriented. Fluent speech. Lungs are clear, normal rate and effort. Heart is regular, no murmur gallop or rub. Abdomen is soft, non distended. Extremities are free of edema. Objective Labs 05/14/25 04:50 05/14/25 04:50 Labs: Laboratory Results - last 24 hr 05/14/25 04:50 WBC 5.7 RBC 2.95 L Hgb 9.8 L Hct 28.7 L MCV 97.2 MCH 33.2 MCHC 34.2 RDW 14.8 Plt Count 180 Sodium 131 L Potassium 4.1 Chloride 100 Carbon Dioxide 28 BUN 26 H Creatinine 0.91 Estimated GFR > 60 BUN/Creatinine Ratio 28.6 H Glucose 72 Calcium 7.9 L Magnesium 2.0 Total Bilirubin 0.1 L AST 20 ALT 16 Alkaline Phosphatase 88 Total Protein 5.3 L Albumin 2.9 L Globulin 2.4 Albumin/Globulin Ratio 1.2 PFSH Medical History Generalized weakness Small bowel obstruction Surgical History Status post laparoscopic cholecystectomy H/O thyroidectomy Family History Mother Diabetes mellitus Heart disease Father Diabetes mellitus Heart disease Brother Myocardial infarction CVA (cerebral vascular accident) Other Hypertension Social History household members: spouse Smoking Status: Former smoker alcohol intake: former Discharge Assessment & Plan Assessment and Plan Plan of Treatment: Discharge plan above. Discharge Plan Discharge Plan Patient Disposition: Home Provider Discharge Comment: Stable for discharge with close FU GI. Discharge orders & Medications Prescriptions: New ondansetron 4 mg tablet,disintegrating 4 mg PO Q8H PRN (Reason: nausea and vomiting) 5 Days Qty: 20 0RF prednisone 50 mg tablet 50 mg PO DAILY Qty: 30 0RF Rx Instructions: Take 1 a day for 5 days, then 1/2 tab a day until GI follow up in the next 10-14 days. Continued levothyroxine [Synthroid] 75 MCG tablet 0.075 mg PO QDAY Qty: 0 albuterol sulfate [Ventolin HFA] 90 MCG/PUFF HFA aerosol inhaler 2 puff INH Q4HP PRN (Reason: Bronchospasm) Qty: 0 lamotrigine [Lamictal] 200 MG tablet 300 mg PO BEDTIME Qty: 0 Rx Instructions: pt reportedly taking 150mg 2 tabs daily at bedtime divalproex 500 MG tablet extended release 24 hr 1,500 mg PO BEDTIME Qty: 0 risperidone 0.25 mg tablet 0.25 mg PO TID buspirone 15 mg tablet 15 mg PO BID trazodone 50 mg tablet 300 mg PO BEDTIME Rx Instructions: pt reportedly taking 100mg 3 Tabs qhs Eliquis 5 mg tablet 5 mg PO BID Patient Comments: taking 5 mg PO UID amlodipine 5 mg tablet 5 mg PO DAILY montelukast 10 mg tablet 10 mg PO DAILY Discontinued prednisone 10 mg tablet PO prednisone 5 mg tablet PO Medication counseling provided by Pharmacist: No Follow up/Referrals: Judy Davison MD [Primary Care Provider, Medical] Discharge Health Status Multidrug resistant organism: No MDRO Diet/Activity/Treatments Diet: Regular Visit Report/Discharge Packet Instructions: DI for Crohns Disease Stand Alone Forms: Patient Portal/API Discharge Data Primary Care Provider: Judy Davison VTE Deep Vein Thrombosis/Pulmonary Embolism Present on Admission: No
--- NOTE | 2025-05-14 14:29 | CM.DPC ---
DC Summary and HH order sent to [facility].
--- NOTE | 2025-05-14 16:53 | PC.NURSE ---
Patient is A&OX4, She is able to ambulate with FWW and tolerates breakfast and lunch well. VSS, afebrile on RA. She denies nausea or diarhea. Still c/o abd pain 6-8/10 but able to nap and mobilize. She is medically cleared for discharge today and her arrives at 1515 to transport patient home. She acknowledges understanding of meds and follow up appointment. RN escorted to private vehicle at 1325 for discharge home with .
== END 2025-05-14 15:25 | disposition home health service (06) | DRG 386 ==
LOC: ED 19:35 → AC 22:50
PROVIDERS: Hospitalist; Pharmacist Pharmacist Clinician (PhC)/ Clinical Pharmacy Specialist; Admitting Provider Internal Medicine; Emergency Provider Family Medicine; PCP Internal Medicine; Referring Provider Family Medicine; Visit Provider Internal Medicine
DX: K50.912 Crohn's disease, unspecified, with intestinal obstruction (principal); E87.1 Hypo-osmolality and hyponatremia; R00.1 Bradycardia, unspecified; J44.9 Chronic obstructive pulmonary disease, unspecified; F31.9 Bipolar disorder, unspecified; E89.0 Postprocedural hypothyroidism; R74.8 Abnormal levels of other serum enzymes; Z87.19 Personal history of other diseases of the digestive system; Z90.49 Acquired absence of other specified parts of digestive tract; Z87.891 Personal history of nicotine dependence; Z79.890 Hormone replacement therapy; Z79.01 Long term (current) use of anticoagulants
CPT/HCPCS: 36415; 74177; 80048; 80053; 81001; 83690; 83735; 84443; 84484; 85025; 85027; 93005; 93010; 93306; 96360; 97110; 97116; 97162; 97166; 97530; 97535; 99284; G0378; J1171; J2405; J2919; J7030; J7120; Q9967